=== PATIENT | female | born 1945 | race Caucasian/White ===

== ENCOUNTER 2022-11-12 14:50 | Inpatient (IN) | payer MEDICARE ==
[2022-11-12] MEDS ORDERED: methylPREDNISolone SOD SUCCI 125 MG/2 ML VIAL IV STA (15:25)
[2022-11-12] MEDS ORDERED: IPRATROPIUM-ALBUTEROL 3 ML NEB INHALATION STA (15:25)
--- NOTE | 2022-11-12 15:31 | ED ---
SOB HPI - General Chief Complaint: Shortness of Breath Stated Complaint: SOB Time Seen by Provider: 11/12/22 15:00 Source: patient, EMS, RN notes reviewed Mode of arrival: EMS Limitations: no limitations - History of Present Illness Initial Comments: 77-year-old female history of COPD who states she's had shortness of breath he got progressively worse over last 2 days. No overt fevers chills sweats she has had a cough no production. No overt chest pain. She was given a DuoNeb and route with some improvement she still short of breath and wheezy. No other current complaints or modifying factors reported MD Complaint: shortness of breath - Related Data Home Medications Medication Instructions Recorded Confirmed Albuterol Inhaler [Ventolin Hfa 2 puff INHALATION RT-QID PRN 11/12/22 11/12/22 Inhaler] Apixaban [Eliquis] 5 mg PO BID 11/12/22 11/12/22 Bumetanide [Bumex] 1 mg PO DAILY 11/12/22 11/12/22 Cholecalciferol [Vitamin D3 (25 75 mcg PO DAILY 11/12/22 11/12/22 Mcg = 1000 Iu)] Colchicine 0.6 mg PO TUTH 11/12/22 11/12/22 Ferrous Sulfate [Feosol] 325 mg PO DAILY 11/12/22 11/12/22 Fexofenadine HCl [Jamee Allergy] 180 mg PO HS 11/12/22 11/12/22 Fluticasone Propion/Salmeterol 1 puff INHALATION RT-BID 11/12/22 11/12/22 [Advair 500-50 Diskus] Ipratropium-Albuterol Nebulize 3 ml INHALATION RT-QID PRN 11/12/22 11/12/22 [Duoneb 0.5 mg-3 mg/3 ml Soln] Ipratropium/Albuter 20-100Mcg 1 puff INHALATION RT-QID PRN 11/12/22 11/12/22 [Combivent Respimat 20-100Mcg Inhaler] Losartan Potassium 100 mg PO DAILY 11/12/22 11/12/22 Magnesium Oxide [Mag-Ox] 400 mg PO DAILY 11/12/22 11/12/22 Metoprolol Succinate [Metoprolol 75 mg PO HS 11/12/22 11/12/22 Succinate ER] Montelukast [Singulair] 10 mg PO HS 11/12/22 11/12/22 Pantoprazole [Protonix] 40 mg PO BID 11/12/22 11/12/22 Potassium Chloride ER [K-Dur 20] 20 meq PO DAILY 11/12/22 11/12/22 Power C Supplement 2 tab PO DAILY 11/12/22 11/12/22 Tiotropium [place] [Spiriva] 18 mcg INHALATION RT-DAILY 11/12/22 11/12/22 Vitamin B Complex 1 cap PO DAILY 11/12/22 11/12/22 allopurinoL [Zyloprim] 200 mg PO DAILY 11/12/22 11/12/22 Allergies Allergy/AdvReac Type Severity Reaction Status Date / Time aspirin Allergy Anaphylaxis Verified 11/12/22 17:25 ibuprofen Allergy Anaphylaxis Verified 11/12/22 17:25 Review of Systems ROS Statement: Those systems with pertinent positive or pertinent negative responses have been documented in the HPI. ROS Other: All systems not noted in ROS Statement are negative. Past Medical History Additional Past Medical History / Comment(s): COPD, asthma, breast cancer, wears 3L NC at home. History of Any Multi-Drug Resistant Organisms: None Reported Past Surgical History: Section, Heart Catheterization, Hernia Repair, Pacemaker Past Psychological History: No Psychological Hx Reported Smoking Status: Former smoker Past Alcohol Use History: Occasional Past Drug Use History: None Reported General Exam - General Exam Comments Initial Comments: This is a well-developed well-nourished awake alert oriented 4 female Limitations: no limitations General appearance: alert, anxious, in distress Head exam: Present: atraumatic, normocephalic, normal inspection Eye exam: Present: normal appearance, PERRL, EOMI. Absent: scleral icterus, conjunctival injection, periorbital swelling ENT exam: Present: normal exam, mucous membranes moist Neck exam: Present: normal inspection, full ROM, other. Absent: tenderness, meningismus, lymphadenopathy Respiratory exam: Present: respiratory distress, wheezes, accessory muscle use, decreased breath sounds (No stridor JVD or bruits). Absent: rales, rhonchi, stridor Cardiovascular Exam: Present: normal rhythm, tachycardia, normal heart sounds. Absent: systolic murmur, diastolic murmur, rubs, gallop, clicks GI/Abdominal exam: Present: soft, normal bowel sounds. Absent: distended, tenderness, guarding, rebound, rigid Extremities exam: Present: normal inspection, full ROM, normal capillary refill. Absent: tenderness, pedal edema, joint swelling, calf tenderness Back exam: Present: normal inspection Neurological exam: Present: alert, oriented X3, CN II-XII intact Psychiatric exam: Present: normal affect, normal mood Skin exam: Present: warm, dry, intact, normal color. Absent: rash Course Vital Signs 11/12/22 11/12/22 11/12/22 14:52 14:59 16:31 Temperature 98.5 F Pulse Rate 85 83 Respiratory 22 22 18 Rate Blood Pressure 113/63 114/76 O2 Sat by Pulse 92 L 94 L Oximetry 11/12/22 11/12/22 11/12/22 16:55 17:25 17:33 Temperature Pulse Rate 84 90 90 Respiratory 20 Rate Blood Pressure O2 Sat by Pulse 94 L Oximetry 11/12/22 17:53 Temperature Pulse Rate 87 Respiratory 18 Rate Blood Pressure 116/64 O2 Sat by Pulse 93 L Oximetry Medical Decision Making - Medical Decision Making I did discuss [employer] the patient family patient is feeling improved after initial treatment she does demonstrate evidence of CHF also has elevated troponin. She will be admitted with inpatient evaluation and treatment I did discuss the case with Dimple lópez for Dr. Gonzalez pt. sent in by a medical professional or institution (FELISA Stahl, DIETARY SERVICES MANAGER, urgent care, hospital, or assisted ...) When possible be specific @ -[No] Did you speak to anyone other than the patient for history (EMS, parent, family, police, friend...)? What history was obtained from this source @ -[EMS personnel] Did you review nursing and triage notes (agree or disagree)? Why? @ -[I reviewed and agree with nursing and triage notes] Were old charts reviewed (outside hosp., previous admission, EMS record, old EKG, old radiological studies, urgent care reports/EKG's, assisted records)? Report findings @ -[No old charts were available to reviewed] Differential Diagnosis (chest pain, altered mental status, abdominal pain women, abdominal pain men, vaginal bleeding, weakness, fever, dyspnea, syncope, headache, dizziness, GI bleed, back pain, seizure, CVA, palpatations, mental health, musculoskeletal)? @ -[COPD exacerbation, shortness of breath secondary to CHF] EKG interpreted by me (3pts min.). @ -[As above] X-rays interpreted by me (1pt min.). @ -[As above] CT interpreted by me (1pt min.). @ -[None done] U/S interpreted by me (1pt. min.). @ -[None done] What testing was considered but not performed or refused? (CT, X-rays, U/S, labs)? Why? @ -[None] What meds were considered but not given or refused? Why? @ -[None] Did you discuss the management of the patient with other professionals (professionals i.e. , PA, DIETARY SERVICES MANAGER, lab, RT, psych nurse, social sciences professor, chalk extruding machine operator, teacher, dog control officer, transplant case manager)? Give summary @ -[Dimple the mid-level provider. Dr. Lindsay] Was smoking cessation discussed for >3mins.? @ -[No] Was critical care preformed (if so, how long)? @ -[31 minutes] Were there social determinants of health that impacted care today? How? ( Homelessness, low income, unemployed, alcoholism, drug addiction, transportation, low edu. Level, literacy, decrease access to med. care, fpc, rehab)? @ -[No] Was there de-escalation of care discussed even if they declined (Discuss DNR or withdrawal of care, Hospice)? DNR status @ -[No] What co-morbidities impacted this encounter? (DM, HTN, Smoking, COPD, CAD, Cancer, CVA, ARF, Chemo, Hep., AIDS, mental health diagnosis, sleep apnea, morbid obesity)? @ -[COPD, history of breast cancer, oxygen dependent] Was patient admitted / discharged? Hospital course, mention meds given and r oute, prescriptions, significant lab abnormalities, going to OR and other pertinent info. @ -[hospital course] patient was admitted for inpatient evaluation and treatment of shortness of breath CHF cardiology will be consulted. No old charting was available Undiagnosed new problem with uncertain prognosis? @ -[Congestive heart failure] Drug Therapy requiring intensive monitoring for toxicity (Heparin, Nitro, Insulin, Cardizem)? @ -[No] Were any procedures done? @ -[No] Diagnosis/symptom? @ -[Congestive heart failure, COPD exacerbation, exertional dyspnea, history of pacemaker] Acute, or Chronic, or Acute on Chronic? @ -[Acute] Uncomplicated (without systemic symptoms) or Complicated (systemic symptoms)? @ -[Complicated] Side effects of treatment? @ -[No] Exacerbation, Progression, or Severe Exacerbation? @ -[Exacerbation] Poses a threat to life or bodily function? How? (Chest pain, [place], [place], pneumonia, PE, COPD, DKA, ARF, appy, cholecystitis, CVA, Diverticulitis, Homicidal, Suicidal, threat to staff... and all critical care pts) @ -[CHF, COPD] - Lab Data Result diagrams: 11/12/22 15:21 11/12/22 15:21 Lab Results 11/12/22 11/12/22 11/12/22 Range/Units 15:21 15:21 15:21 WBC 12.9 H (3.8-10.6) k/uL RBC 3.63 L (3.80-5.40) m/uL Hgb 10.8 L (11.4-16.0) gm/dL Hct 34.0 (34.0-46.0) % MCV 93.7 (80.0-100.0) fL MCH 29.8 (25.0-35.0) pg MCHC 31.8 (31.0-37.0) g/dL RDW 14.5 (11.5-15.5) % Plt Count 205 (150-450) k/uL MPV 8.3 Neutrophils % 75 % Lymphocytes % 14 % Monocytes % 6 % Eosinophils % 4 % Basophils % 0 % Neutrophils # 9.7 H (1.3-7.7) k/uL Lymphocytes # 1.7 (1.0-4.8) k/uL Monocytes # 0.8 (0-1.0) k/uL Eosinophils # 0.5 (0-0.7) k/uL Basophils # 0.0 (0-0.2) k/uL PT 11.5 (9.0-12.0) sec INR 1.1 (<1.2) APTT 31.1 H (22.0-30.0) sec D-Dimer 0.39 (<0.60) mg/L FEU Sodium 140 (137-145) mmol/L Potassium 4.5 (3.5-5.1) mmol/L Chloride 96 L (98-107) mmol/L Carbon Dioxide 39 H (22-30) mmol/L Anion Gap 5 mmol/L BUN 48 H (7-17) mg/dL Creatinine 1.55 H (0.52-1.04) mg/dL Est GFR (CKD-EPI)AfAm 37 (>60 ml/min/1.73 sqM) Est GFR (CKD-EPI)NonAf 32 (>60 ml/min/1.73 sqM) Glucose 123 H (74-99) mg/dL Plasma Lactic Acid Cliff (0.7-2.0) mmol/L Calcium 9.1 (8.4-10.2) mg/dL Total Bilirubin 1.4 H (0.2-1.3) mg/dL AST 20 (14-36) U/L ALT 15 (4-34) U/L Alkaline Phosphatase 102 (38-126) U/L Troponin I (0.000-0.034) ng/mL NT-Pro-B Natriuret Pep pg/mL Total Protein 7.0 (6.3-8.2) g/dL Albumin 3.6 (3.5-5.0) g/dL Influenza Type A (PCR) (Not Detectd) Influenza Type B (PCR) (Not Detectd) RSV (PCR) (Not Detectd) SARS-CoV-2 (PCR) (Not Detectd) 11/12/22 11/12/22 11/12/22 Range/Units 15:21 15:21 15:21 WBC (3.8-10.6) k/uL RBC (3.80-5.40) m/uL Hgb (11.4-16.0) gm/dL Hct (34.0-46.0) % MCV (80.0-100.0) fL MCH (25.0-35.0) pg MCHC (31.0-37.0) g/dL RDW (11.5-15.5) % Plt Count (150-450) k/uL MPV Neutrophils % % Lymphocytes % % Monocytes % % Eosinophils % % Basophils % % Neutrophils # (1.3-7.7) k/uL Lymphocytes # (1.0-4.8) k/uL Monocytes # (0-1.0) k/uL Eosinophils # (0-0.7) k/uL Basophils # (0-0.2) k/uL PT (9.0-12.0) sec INR (<1.2) APTT (22.0-30.0) sec D-Dimer (<0.60) mg/L FEU Sodium (137-145) mmol/L Potassium (3.5-5.1) mmol/L Chloride (98-107) mmol/L Carbon Dioxide (22-30) mmol/L Anion Gap mmol/L BUN (7-17) mg/dL Creatinine (0.52-1.04) mg/dL Est GFR (CKD-EPI)AfAm (>60 ml/min/1.73 sqM) Est GFR (CKD-EPI)NonAf (>60 ml/min/1.73 sqM) Glucose (74-99) mg/dL Plasma Lactic Acid Cliff 1.2 (0.7-2.0) mmol/L Calcium (8.4-10.2) mg/dL Total Bilirubin (0.2-1.3) mg/dL AST (14-36) U/L ALT (4-34) U/L Alkaline Phosphatase (38-126) U/L Troponin I 0.059 H* (0.000-0.034) ng/mL NT-Pro-B Natriuret Pep 6400 pg/mL Total Protein (6.3-8.2) g/dL Albumin (3.5-5.0) g/dL Influenza Type A (PCR) (Not Detectd) Influenza Type B (PCR) (Not Detectd) RSV (PCR) (Not Detectd) SARS-CoV-2 (PCR) (Not Detectd) 11/12/22 Range/Units 16:16 WBC (3.8-10.6) k/uL RBC (3.80-5.40) m/uL Hgb (11.4-16.0) gm/dL Hct (34.0-46.0) % MCV (80.0-100.0) fL MCH (25.0-35.0) pg MCHC (31.0-37.0) g/dL RDW (11.5-15.5) % Plt Count (150-450) k/uL MPV Neutrophils % % Lymphocytes % % Monocytes % % Eosinophils % % Basophils % % Neutrophils # (1.3-7.7) k/uL Lymphocytes # (1.0-4.8) k/uL Monocytes # (0-1.0) k/uL Eosinophils # (0-0.7) k/uL Basophils # (0-0.2) k/uL PT (9.0-12.0) sec INR (<1.2) APTT (22.0-30.0) sec D-Dimer (<0.60) mg/L FEU Sodium (137-145) mmol/L Potassium (3.5-5.1) mmol/L Chloride (98-107) mmol/L Carbon Dioxide (22-30) mmol/L Anion Gap mmol/L BUN (7-17) mg/dL Creatinine (0.52-1.04) mg/dL Est GFR (CKD-EPI)AfAm (>60 ml/min/1.73 sqM) Est GFR (CKD-EPI)NonAf (>60 ml/min/1.73 sqM) Glucose (74-99) mg/dL Plasma Lactic Acid Cliff (0.7-2.0) mmol/L Calcium (8.4-10.2) mg/dL Total Bilirubin (0.2-1.3) mg/dL AST (14-36) U/L ALT (4-34) U/L Alkaline Phosphatase (38-126) U/L Troponin I (0.000-0.034) ng/mL NT-Pro-B Natriuret Pep pg/mL Total Protein (6.3-8.2) g/dL Albumin (3.5-5.0) g/dL Influenza Type A (PCR) Not Detected (Not Detectd) Influenza Type B (PCR) Not Detected (Not Detectd) RSV (PCR) Not Detected (Not Detectd) SARS-CoV-2 (PCR) Not Detected (Not Detectd) - EKG Data -: EKG Interpreted by Me EKG Comments: EKG interpreted by me electronic pacer rhythm rate 81 QRS 163 QT since QTC 43/441 was a right bundle-branch block pattern as well as left posterior fascicular block patterns seen evidence of intermittent pacing nonspecific configurations - Radiology Data Interpreted by me: I did interpret the imaging evidence of congestive heart failure. Critical Care Time Critical Care Time: Yes Total Critical Care Time: 31 Disposition Clinical Impression: Congestive heart failure, Acute exacerbation of chronic obstructive pulmonary disease, Elevated troponin, Renal insufficiency syndrome, Elevated brain natriuretic peptide (BNP) level Disposition: ADMITTED IP TO THIS [facility] Condition: Fair Referrals: Ingrid Ocampo DO [Primary Care Provider] - 1-2 days Decision Date: 11/12/22 Decision Time: 17:50
[2022-11-12 15:37] LABS: Basophils % (A) 0 %; Eosinophils # (A) 0.5 k/uL (0-0.7); Eosinophils % (A) 4 %; HGB 10.8 gm/dL (11.4-16.0); Lymphocytes # (A) 1.7 k/uL (1.0-4.8); Lymphocytes % (A) 14 %; MCH 29.8 pg (25.0-35.0); MCHC 31.8 g/dL (31.0-37.0); MCV 93.7 fL (80.0-100.0); Mean Platelet Volume 8.3; Monocytes # (A) 0.8 k/uL (0-1.0); Monocytes % (A) 6 %; Neutrophils # (A) 9.7 k/uL (1.3-7.7); Neutrophils % (A) 75 %; Platelet Count 205 k/uL (150-450); RBC 3.63 m/uL (3.80-5.40); RDW 14.5 % (11.5-15.5); WBC 12.9 k/uL (3.8-10.6)
[2022-11-12 15:51] LABS: INR 1.1 (<1.2); Partial Thromboplastin Time 31.1 sec (22.0-30.0); Prothrombin Time 11.5 sec (9.0-12.0)
[2022-11-12 15:53] LABS: Albumin 3.6 g/dL (3.5-5.0); Calcium 9.1 mg/dL (8.4-10.2); Potassium 4.5 mmol/L (3.5-5.1); Total Bilirubin 1.4 mg/dL (0.2-1.3)
--- NOTE | 2022-11-12 16:07 | XR ---
EXAMINATION TYPE: XR chest 2V DATE OF EXAM: 11/12/2022 COMPARISON: NONE HISTORY: Shortness of breath TECHNIQUE: Frontal and lateral views of the chest are obtained. FINDINGS: Scattered senescent parenchymal changes noted. Hyperinflation compatible with COPD. No evidence for infiltrate. No evidence for atelectasis. Cardiomegaly. Dual-lead pacer. Pulmonary venous congestion with fluid within the right minor fissure and scattered infiltrates. Mediastinal structures are stable and grossly unremarkable. No evidence for hilar prominence. Degenerative changes dorsal spine. IMPRESSION: 1. Correlate for early changes of congestive failure. Infiltrates of other etiology not excluded.
[2022-11-12] MEDS: FUROSEMIDE 10 MG/ML 4 ML VIAL IV SCH (18:56)
[2022-11-12] MEDS: IPRATROPIUM-ALBUTEROL 3 ML NEB INHALATION PRN (21:03)
[2022-11-12] MEDS: SYMBICORT 160-4.5 MCG INHALER INHALATION SCH (21:03)
[2022-11-12] MEDS: METOPROLOL SUCCINATE (ER) 25 MG TAB.ER.24H PO SCH (21:24)
[2022-11-12] MEDS: APIXABAN 5 MG TAB PO SCH (21:24)
[2022-11-12] MEDS: LORATADINE 10 MG TAB PO SCH (21:24)
[2022-11-12] MEDS: MONTELUKAST 10 MG TAB PO SCH (21:24)
[2022-11-12] MEDS: PANTOPRAZOLE 40 MG TABLET PO SCH (21:24)
[2022-11-13] MEDS: IPRATROPIUM-ALBUTEROL 3 ML NEB INHALATION PRN ×5 (00:57→15:49)
[2022-11-13] MEDS: methylPREDNISolone SOD SUCCI 40 MG/ML 1 ML VIAL IV SCH ×4 (01:48→23:48)
[2022-11-13] MEDS ORDERED: DEXTROSE 50% SYRINGE 50 ML IVP PRN ×2 (02:18)
[2022-11-13] MEDS: FUROSEMIDE 10 MG/ML 4 ML VIAL IV SCH ×2 (06:03→17:21)
[2022-11-13 06:13] LABS: Glucose,Whole Blood 153 mg/dL (70-110)
[2022-11-13] MEDS: INSULIN ASPART (NovoLOG) 100 UNIT/ML VIAL SQ SCH ×4 (07:37→23:50)
[2022-11-13] MEDS: PANTOPRAZOLE 40 MG TABLET PO SCH ×2 (08:33→20:15)
[2022-11-13] MEDS: APIXABAN 5 MG TAB PO SCH ×2 (08:33→20:15)
[2022-11-13] MEDS: allopurinoL 100 MG TAB PO SCH (08:33)
[2022-11-13] MEDS: ASCORBIC ACID 500 MG TAB PO SCH (08:34)
[2022-11-13] MEDS: MAGNESIUM OXIDE 400 MG TAB PO SCH (08:34)
[2022-11-13] MEDS: CHOLECALCIFEROL 25 MCG (1000 IU) TABLET PO SCH (08:34)
[2022-11-13] MEDS: POTASSIUM CHLORIDE ER 20 MEQ TAB.ER PO SCH (08:34)
[2022-11-13] MEDS: FERROUS SULFATE 325 MG TAB PO SCH (08:34)
[2022-11-13] MEDS: IPRATROPIUM 0.5 MG/2.5 ML NEBU INHALATION SCH ×4 (08:46→21:05)
[2022-11-13] MEDS: SYMBICORT 160-4.5 MCG INHALER INHALATION SCH ×2 (08:46→21:05)
[2022-11-13] MEDS ORDERED: BUMETANIDE 1 MG TAB PO SCH (09:00)
[2022-11-13] MEDS ORDERED: LOSARTAN 50 MG TAB PO SCH (09:00)
[2022-11-13] MEDS ORDERED: NON FORMULARY DRUG (Vitamin B Complex [Vitamin B Complex] 1 EACH Capsule) PO SCH (09:00)
--- NOTE | 2022-11-13 09:26 | P.CRDCN ---
History of Present Illness Consult date: 11/13/22 History of present illness: History of Present Illness: The patient is a 77-year-old female who is followed by Dr. Palacio regarding her cardiac status who presents with symptoms of progressive dyspnea, cough for the last few days, worse yesterday. In the emergency room she was noted to be in atrial fibrillation and had evidence of exacerbation of COPD and CHF. She has a known history of permanent atrial fibrillation, anticoagulated, post permanent pacemaker implantation. She has underwent a cardiac catheterization according to her a year ago that showed no evidence of obstructive CAD. She has no prior history of myocardial infarction. She recalls being told that her ejection fraction is 40%. Her symptoms were getting worse over the last few days but not associated with chest pain or fever. She had wheezing and cough. She had mild peripheral edema. She has been anticoagulated. She has a history of COPD but has not smoked in over 20 years. In the emergency room her troponin were mildly elevated and her NT proBNP was elevated as well. Her coronary risk factors are positive for hypertension, her lipid profile is not available. Medications: Bumex 1 mg daily, potassium, Singulair, colchicine, Spiriva, Ventolin, Combivent, Advair, metoprolol succinate 75 mg daily,Eliquis 5 mg twice a day Review of Systems: Respiratory: She has a history of COPD with symptoms of progressive dyspnea and cough GI: No nausea or vomiting . No history of peptic ulcer disease. Rare GI bleed. : No hematuria or dysuria. Nervous System: No stroke or seizure. Physical Examination: 77-year-old female alert mildly dyspneic ,Blood pressure 91/50, Heart rate 80 Head: Normocephalic. Eyes: Sclerae nonicteric. Neck: Good carotid upstroke, no bruit, no jugular venous distention. Lungs: Diffuse wheezes bilaterally with decreased air exchange Heart: Irregular rate and rhythm, S1-S2, no S3, no rub. Systolic ejection murmur. Abdomen: Soft nontender, positive bowel sounds no organomegaly. Extremities: No edema, intact distal pulses. Labs: WBC 12.9, hemoglobin 10.8, BUN 48, creatinine 1.55. Potassium 4.5. NT proBNP 6400. Troponin 0.059, 0.051, 0.047. EKG: Atrial fibrillation with evidence of permanent pacemaker activity Impression: 1. Progressive dyspnea with a combination of exacerbation of COPD and CHF. Her ejection fraction in the past according to her was 40% 2. Chronic persistent atrial fibrillation, anticoagulated 3. Status post permanent pacemaker implantation 4. History of hypertension 5. Troponin elevation most likely representing type II myocardial infarction related to the COPD and CHF 6. Abnormal renal function of unknown duration 7. No evidence of high-grade CAD per patient by cardiac catheterization about a year ago Plan: 1. Obtained prior cardiac workup including cardiac catheterization done at [facility] 2. Continue anticoagulation and beta angelito 3. IV diuretics 4. Obtain an echocardiogram with Doppler 5. Pulmonary consultation 6. Follow renal functions 7. Depending on her renal function, and her ejection fraction she may be a candidate for Entresto and Farxiga 8. Thank you for this consult we will follow with you. Past Medical History Past Medical History: Atrial Fibrillation, Asthma, Cancer, Heart Failure, COPD, GERD/Reflux, Skin Disorder Additional Past Medical History / Comment(s): COPD, asthma, breast cancer-right, wears 3L NC at home, Arthritis, dry patch on right leg History of Any Multi-Drug Resistant Organisms: None Reported Past Surgical History: Section, Heart Catheterization, Hernia Repair, Pacemaker Additional Past Surgical History / Comment(s): left hand surgery for broken index and middle finger Past Anesthesia/Blood Transfusion Reactions: No Reported Reaction Type of Cardiac Device: Permanent Pacemaker Device Placement Date:: 07/2021 Past Psychological History: Depression Smoking Status: Former smoker Past Alcohol Use History: Occasional Past Drug Use History: None Reported - Past Family History Mother Family Medical History: Diabetes Mellitus Medications and Allergies Home Medications Medication Instructions Recorded Confirmed Type Albuterol Inhaler [Ventolin Hfa 2 puff INHALATION RT-QID PRN 11/12/22 11/12/22 History Inhaler] Apixaban [Eliquis] 5 mg PO BID 11/12/22 11/12/22 History Bumetanide [Bumex] 1 mg PO DAILY 11/12/22 11/12/22 History Cholecalciferol [Vitamin D3 (25 75 mcg PO DAILY 11/12/22 11/12/22 History Mcg = 1000 Iu)] Colchicine 0.6 mg PO TUTH 11/12/22 11/12/22 History Ferrous Sulfate [Feosol] 325 mg PO DAILY 11/12/22 11/12/22 History Fexofenadine HCl [Jamee Allergy] 180 mg PO HS 11/12/22 11/12/22 History Fluticasone Propion/Salmeterol 1 puff INHALATION RT-BID 11/12/22 11/12/22 Hi story [Advair 500-50 Diskus] Ipratropium-Albuterol Nebulize 3 ml INHALATION RT-QID PRN 11/12/22 11/12/22 History [Duoneb 0.5 mg-3 mg/3 ml Soln] Ipratropium/Albuter 20-100Mcg 1 puff INHALATION RT-QID PRN 11/12/22 11/12/22 History [Combivent Respimat 20-100Mcg Inhaler] Losartan Potassium 100 mg PO DAILY 11/12/22 11/12/22 History Magnesium Oxide [Mag-Ox] 400 mg PO DAILY 11/12/22 11/12/22 History Metoprolol Succinate [Metoprolol 75 mg PO HS 11/12/22 11/12/22 History Succinate ER] Montelukast [Singulair] 10 mg PO HS 11/12/22 11/12/22 History Pantoprazole [Protonix] 40 mg PO BID 11/12/22 11/12/22 History Potassium Chloride ER [K-Dur 20] 20 meq PO DAILY 11/12/22 11/12/22 History Power C Supplement 2 tab PO DAILY 11/12/22 11/12/22 History Tiotropium [place] [Spiriva] 18 mcg INHALATION RT-DAILY 11/12/22 11/12/22 History Vitamin B Complex 1 cap PO DAILY 11/12/22 11/12/22 History allopurinoL [Zyloprim] 200 mg PO DAILY 11/12/22 11/12/22 History Allergies Allergy/AdvReac Type Severity Reaction Status Date / Time aspirin Allergy Anaphylaxis Verified 11/12/22 17:25 ibuprofen Allergy Anaphylaxis Verified 11/12/22 17:25 Physical Exam Vitals: Vital Signs Temp Pulse Pulse Resp BP BP Pulse Ox 11/13/22 09:01 76 11/13/22 08:47 78 92 L 11/13/22 08:28 98.1 F 78 20 91/49 96 11/13/22 04:31 77 11/13/22 04:15 71 11/13/22 04:00 97.6 F 70 20 90/50 92 L 11/13/22 01:52 24 11/13/22 01:11 72 11/13/22 00:58 71 11/13/22 00:00 98.4 F 74 22 92/54 93 L 11/12/22 21:22 84 11/12/22 21:04 85 11/12/22 20:00 98.9 F 87 22 113/66 93 L 11/12/22 18:55 97.5 F L 77 18 103/64 95 11/12/22 17:53 87 18 116/64 93 L 11/12/22 17:33 90 11/12/22 17:25 90 11/12/22 16:55 84 20 94 L 11/12/22 16:31 83 18 114/76 94 L 11/12/22 14:59 98.5 F 22 11/12/22 14:52 85 22 113/63 92 L Intake and Output 11/12/22 11/13/22 11/13/22 22:59 06:59 14:59 Intake Total 240 Output Total 300 100 200 Balance -300 -100 40 Intake: Oral 240 Output: Urine 300 100 200 Other: Voiding Method Bedside Commode Bedside Commode Bedside Commode # Bowel Movements 1 Weight 78.925 kg 80.4 kg Results 11/12/22 15:21 11/12/22 15:21 Cardiac Enzymes 11/12/22 11/12/22 11/12/22 Range/Units 15:21 15:21 18:37 AST 20 (14-36) U/L Troponin I 0.059 H* 0.051 H* (0.000-0.034) ng/mL 11/12/22 Range/Units 22:34 AST (14-36) U/L Troponin I 0.047 H* (0.000-0.034) ng/mL Coagulation 11/12/22 Range/Units 15:21 PT 11.5 (9.0-12.0) sec APTT 31.1 H (22.0-30.0) sec CBC 11/12/22 Range/Units 15:21 WBC 12.9 H (3.8-10.6) k/uL RBC 3.63 L (3.80-5.40) m/uL Hgb 10.8 L (11.4-16.0) gm/dL Hct 34.0 (34.0-46.0) % Plt Count 205 (150-450) k/uL Comprehensive Metabolic Panel 11/12/22 Range/Units 15:21 Sodium 140 (137-145) mmol/L Potassium 4.5 (3.5-5.1) mmol/L Chloride 96 L (98-107) mmol/L Carbon Dioxide 39 H (22-30) mmol/L BUN 48 H (7-17) mg/dL Creatinine 1.55 H (0.52-1.04) mg/dL Glucose 123 H (74-99) mg/dL Calcium 9.1 (8.4-10.2) mg/dL AST 20 (14-36) U/L ALT 15 (4-34) U/L Alkaline Phosphatase 102 (38-126) U/L Total Protein 7.0 (6.3-8.2) g/dL Albumin 3.6 (3.5-5.0) g/dL Current Medications Generic Name Dose Route Start Last Admin Trade Name Freq PRN Reason Stop Dose Admin Albuterol/Ipratropium 3 ml 11/12/22 18:21 11/13/22 08:46 Ipratropium-Albuterol 3 Ml Neb INHALATION 3 ml RT-QID PRN Administration Shortness Of Breath Allopurinol 200 mg 11/13/22 09:00 11/13/22 08:33 Allopurinol 100 Mg Tab PO 200 mg DAILY OANH Administration Apixaban 5 mg 11/12/22 21:00 11/13/22 08:33 Apixaban 5 Mg Tab PO 5 mg BID OANH Administration Protocol Ascorbic Acid 500 mg 11/13/22 09:00 11/13/22 08:34 Ascorbic Acid 500 Mg Tab PO 500 mg DAILY OANH Administration Budesonide/Formoterol Fumarate 2 puff 11/12/22 20:00 11/13/22 08:46 Symbicort 160-4.5 Mcg Inhaler INHALATION 2 puff RT-BID OANH Administration Cholecalciferol 75 mcg 11/13/22 09:00 11/13/22 08:34 Cholecalciferol 25 Mcg (1000 Iu) Tablet PO 75 mcg DAILY OANH Administration Colchicine 0.6 mg 11/15/22 09:00 Colchicine 0.6 Mg Each PO [facility] Dextrose/Water 25 ml 11/13/22 02:18 Dextrose 50% Syringe 50 Ml IVP PER PROTOCOL PRN Hypoglycemia Protocol Dextrose/Water 50 ml 11/13/22 02:18 Dextrose 50% Syringe 50 Ml IVP PER PROTOCOL PRN Hypoglycemia Protocol Ferrous Sulfate 325 mg 11/13/22 09:00 11/13/22 08:34 Ferrous Sulfate 325 Mg Tab PO 325 mg DAILY OANH Administration Furosemide 40 mg 11/12/22 18:00 11/13/22 06:03 Furosemide 10 Mg/Ml 4 Ml Vial IV 40 mg Q12H OANH Administration Insulin Aspart 0 unit 11/13/22 07:30 11/13/22 07:37 Insulin Aspart (Novolog) 100 Unit/Ml Vial SQ 2 unit ACHS OANH Administration Protocol Ipratropium [place] 0.5 mg 11/13/22 08:00 11/13/22 08:46 Ipratropium 0.5 Mg/2.5 Ml Nebu INHALATION Not Given RT-QID OANH Loratadine 10 mg 11/12/22 21:00 11/12/22 21:24 Loratadine 10 Mg Tab PO 10 mg HS OANH Administration Magnesium Oxide 400 mg 11/13/22 09:00 11/13/22 08:34 Magnesium Oxide 400 Mg Tab PO 400 mg DAILY OANH Administration Methylprednisolone Sodium Succinate 40 mg 11/13/22 01:45 11/13/22 08:32 Methylprednisolone Sod Succi 40 Mg/Ml 1 Ml Vial IV 40 mg Q8HR OANH Administration Metoprolol Succinate 75 mg 11/12/22 21:00 11/12/22 21:24 Metoprolol Succinate (Er) 25 Mg Tab.Er.24h PO 75 mg HS OANH Administration Montelukast Sodium 10 mg 11/12/22 21:00 11/12/22 21:24 Montelukast 10 Mg Tab PO 10 mg HS OANH Administration Pantoprazole Sodium 40 mg 11/12/22 21:00 11/13/22 08:33 Pantoprazole 40 Mg Tablet PO 40 mg BID OANH Administration Potassium Chloride 20 meq 11/13/22 09:00 11/13/22 08:34 Potassium Chloride Er 20 Meq Tab.Er PO 20 meq DAILY OANH Administration Intake and Output 11/12/22 11/13/22 11/13/22 22:59 06:59 14:59 Intake Total 240 Output Total 300 100 200 Balance -300 -100 40 Intake: Oral 240 Output: Urine 300 100 200 Other: Voiding Method Bedside Commode Bedside Commode Bedside Commode # Bowel Movements 1 Weight 78.925 kg 80.4 kg 11/12/22 15:21 11/12/22 15:21
[2022-11-13 09:54] LABS: Calcium 8.9 mg/dL (8.4-10.2); Potassium 4.6 mmol/L (3.5-5.1)
--- NOTE | 2022-11-13 09:59 | P.HPIM ---
History of Present Illness This is a pleasant 77 years old female with past medical history of Atrial Fibrillation, Asthma, Heart Failure, COPD, GERD/Reflux Presents because of dyspnea and shortness of breath of 1 week duration associated with cough more than one month sometimes with yellow phlegm Patient denies chest pain. No urinary or GI complaints, no dysuria urgency vomiting or diarrhea. No abdominal pain, no headache dizziness weakness or numbness No smoking or illicit tracts, she uses alcohol occasionally She says that she's being nitrite lately and she is being less amount. She's been treated oxygen nasal cannula at home. Vitals reviewed, patient is afebrile. Blood pressure low-normal 90/50. Blood pressure was better on admission 113/63. Patient states 22 and he is saturating 92% on 4 L oxygen via nasal cannula Labs showing mild leukocytosis of 12.9, hemoglobin 10.8. D-dimer is negative at 0.39. Creatinine elevated 1.5, unknown baseline. Electrolytes normal. Liver enzymes elevated. troponin is elevated at 0.059, 0.051, 0.047. probnp is elevated 6400. 3 virus is not detected influenza, rsv and coronavirus ekg showing irregular. Prolonged QRS, some paced rhythm rate around 81, no significant ST-T changes Review of Systems Review of systems CONSTITUTIONAL: No fever, no malaise, no fatigue. HEENT: No recent visual problems or hearing problems. Denied any sore throat. CARDIOVASCULAR: No orthopnea, PND, no palpitations, no syncope. PULMONARY: No chest wall tenderness, no hemoptysis. GASTROINTESTINAL: No diarrhea, no nausea, no vomiting, no abdominal pain. Normoactive bowel sounds. NEUROLOGICAL: No headaches, no weakness, no numbness. HEMATOLOGICAL: Denies any bleeding or petechiae. GENITOURINARY: Denies any burning micturition, frequency, or urgency. MUSCULOSKELETAL/RHEUMATOLOGICAL: Denies any joint pain, swelling, or any muscle pain. ENDOCRINE: Denies any polyuria or polydipsia. Past Medical History Past Medical History: Atrial Fibrillation, Asthma, Cancer, Heart Failure, COPD, GERD/Reflux, Skin Disorder Additional Past Medical History / Comment(s): COPD, asthma, breast cancer-right, wears 3L NC at home, Arthritis, dry patch on right leg History of Any Multi-Drug Resistant Organisms: None Reported Past Surgical History: Section, Heart Catheterization, Hernia Repair, Pacemaker Additional Past Surgical History / Comment(s): left hand surgery for broken index and middle finger Past Anesthesia/Blood Transfusion Reactions: No Reported Reaction Type of Cardiac Device: Permanent Pacemaker Device Placement Date:: 07/2021 Past Psychological History: Depression Smoking Status: Former smoker Past Alcohol Use History: Occasional Past Drug Use History: None Reported - Past Family History Mother Family Medical History: Diabetes Mellitus Medications and Allergies Home Medications Medication Instructions Recorded Confirmed Type Albuterol Inhaler [Ventolin Hfa 2 puff INHALATION RT-QID PRN 11/12/22 11/12/22 History Inhaler] Apixaban [Eliquis] 5 mg PO BID 11/12/22 11/12/22 History Bumetanide [Bumex] 1 mg PO DAILY 11/12/22 11/12/22 History Cholecalciferol [Vitamin D3 (25 75 mcg PO DAILY 11/12/22 11/12/22 History Mcg = 1000 Iu)] Colchicine 0.6 mg PO TUTH 11/12/22 11/12/22 History Ferrous Sulfate [Feosol] 325 mg PO DAILY 11/12/22 11/12/22 History Fexofenadine HCl [Jamee Allergy] 180 mg PO HS 11/12/22 11/12/22 History Fluticasone Propion/Salmeterol 1 puff INHALATION RT-BID 11/12/22 11/12/22 History [Advair 500-50 Diskus] Ipratropium-Albuterol Nebulize 3 ml INHALATION RT-QID PRN 11/12/22 11/12/22 History [Duoneb 0.5 mg-3 mg/3 ml Soln] Ipratropium/Albuter 20-100Mcg 1 puff INHALATION RT-QID PRN 11/12/22 11/12/22 History [Combivent Respimat 20-100Mcg Inhaler] Losartan Potassium 100 mg PO DAILY 11/12/22 11/12/22 History Magnesium Oxide [Mag-Ox] 400 mg PO DAILY 11/12/22 11/12/22 History Metoprolol Succinate [Metoprolol 75 mg PO HS 11/12/22 11/12/22 History Succinate ER] Montelukast [Singulair] 10 mg PO HS 11/12/22 11/12/22 History Pantoprazole [Protonix] 40 mg PO BID 11/12/22 11/12/22 History Potassium Chloride ER [K-Dur 20] 20 meq PO DAILY 11/12/22 11/12/22 History Power C Supplement 2 tab PO DAILY 11/12/22 11/12/22 History Tiotropium [place] [Spiriva] 18 mcg INHALATION RT-DAILY 11/12/22 11/12/22 History Vitamin B Complex 1 cap PO DAILY 11/12/22 11/12/22 History allopurinoL [Zyloprim] 200 mg PO DAILY 11/12/22 11/12/22 History Allergies Allergy/AdvReac Type Severity Reaction Status Date / Time aspirin Allergy Anaphylaxis Verified 11/12/22 17:25 ibuprofen Allergy Anaphylaxis Verified 11/12/22 17:25 Physical Exam Vitals: Vital Signs Temp Pulse Pulse Resp BP BP Pulse Ox 11/13/22 04:31 77 11/13/22 04:15 71 11/13/22 04:00 97.6 F 70 20 90/50 92 L 11/13/22 01:52 24 11/13/22 01:11 72 11/13/22 00:58 71 11/13/22 00:00 98.4 F 74 22 92/54 93 L 11/12/22 21:22 84 11/12/22 21:04 85 11/12/22 20:00 98.9 F 87 22 113/66 93 L 11/12/22 18:55 97.5 F L 77 18 103/64 95 11/12/22 17:53 87 18 116/64 93 L 11/12/22 17:33 90 11/12/22 17:25 90 11/12/22 16:55 84 20 94 L 11/12/22 16:31 83 18 114/76 94 L 11/12/22 14:59 98.5 F 22 11/12/22 14:52 85 22 113/63 92 L Intake and Output 11/12/22 11/13/22 11/13/22 22:59 06:59 14:59 Output Total 300 100 200 Balance -300 -100 -200 Output: Urine 300 100 200 Other: Voiding Method Bedside Commode Bedside Commode # Bowel Movements 1 Weight 78.925 kg 80.4 kg GENERAL: The patient is alert and oriented x3, not in any acute distress. Well developed, well nourished. HEENT: Pupils are round and equally reacting to light. EOMI. No scleral icterus. No conjunctival pallor. Normocephalic, atraumatic. No pharyngeal erythema. No thyromegaly. CARDIOVASCULAR: S1 and S2 present. No murmurs, rubs, or gallops. -PULMONARY: Chest is clear to auscultation, bilateral expiratory wheezing ABDOMEN: Soft, nontender, nondistended, normoactive bowel sounds. No palpable organomegaly. MUSCULOSKELETAL: No joint swelling or deformity. EXTREMITIES: No cyanosis, clubbing, or pedal edema. NEUROLOGICAL: Gross neurological examination did not reveal any focal deficits. SKIN: No rashes. no petechiae. Results CBC & Chem 7: 11/12/22 15:21 11/13/22 09:13 Labs: Abnormal Lab Results - Last 24 Hours (Table) 11/12/22 11/12/22 11/12/22 Range/Units 15:21 15:21 15:21 WBC 12.9 H (3.8-10.6) k/uL RBC 3.63 L (3.80-5.40) m/uL Hgb 10.8 L (11.4-16.0) gm/dL Neutrophils # 9.7 H (1.3-7.7) k/uL APTT 31.1 H (22.0-30.0) sec Chloride 96 L (98-107) mmol/L Carbon Dioxide 39 H (22-30) mmol/L BUN 48 H (7-17) mg/dL Creatinine 1.55 H (0.52-1.04) mg/dL Glucose 123 H (74-99) mg/dL POC Glucose (mg/dL) (70-110) mg/dL Total Bilirubin 1.4 H (0.2-1.3) mg/dL Troponin I (0.000-0.034) ng/mL 11/12/22 11/12/22 11/12/22 Range/Units 15:21 18:37 22:34 WBC (3.8-10.6) k/uL RBC (3.80-5.40) m/uL Hgb (11.4-16.0) gm/dL Neutrophils # (1.3-7.7) k/uL APTT (22.0-30.0) sec Chloride (98-107) mmol/L Carbon Dioxide (22-30) mmol/L BUN (7-17) mg/dL Creatinine (0.52-1.04) mg/dL Glucose (74-99) mg/dL POC Glucose (mg/dL) (70-110) mg/dL Total Bilirubin (0.2-1.3) mg/dL Troponin I 0.059 H* 0.051 H* 0.047 H* (0.000-0.034) ng/mL 11/13/22 Range/Units 06:12 WBC (3.8-10.6) k/uL RBC (3.80-5.40) m/uL Hgb (11.4-16.0) gm/dL Neutrophils # (1.3-7.7) k/uL APTT (22.0-30.0) sec Chloride (98-107) mmol/L Carbon Dioxide (22-30) mmol/L BUN (7-17) mg/dL Creatinine (0.52-1.04) mg/dL Glucose (74-99) mg/dL POC Glucose (mg/dL) 153 H (70-110) mg/dL Total Bilirubin (0.2-1.3) mg/dL Troponin I (0.000-0.034) ng/mL Thrombosis Risk Factor Assmnt - Choose All That Apply Each Factor Represents 1 point: Abnormal pulmonary function (COPD), Heart failure (<1month), Obesity (BMI >25), Swollen legs (current) Each Risk Factor Represents 3 Points: Age 75 years or older Thrombosis Risk Factor Assessment Total Risk Factor Score: 7 Thrombosis Risk Factor Assessment Level: High Risk Assessment and Plan Assessment: Acute COPD exacerbation Possible Acute on chronic CHF exacerbation, unknown ejection fraction elevated troponin Acute hypoxic respiratory failure Acute kidney injury Atrial fibrillation on blood thinner History of asthma Plan: Continue with IV Solu-Medrol Continue with IV Lasix Cardiology consult Labs and medication were reviewed.. Continue same treatment. Continue with symptomatic treatment. Resume home medication. Monitor labs and vitals. DVT and GI prophylaxis. Further recommendations as per clinical course of the patient DVT prophylaxis: Outputeliquis GI Prophylaxis: ppi PT/OT: Pending Prognosis is guarded
[2022-11-13 11:39] LABS: Glucose,Whole Blood 150 mg/dL (70-110)
--- NOTE | 2022-11-13 12:35 | P.CNPUL ---
History of Present Illness Consult date: 11/13/22 Reason for consult: dyspnea History of present illness: 77-year-old female patient, known history of COPD, nausea chronic atrial fibrillation, along with possibility of CHF. 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 In any rate, she is presenting with increasing dyspnea,, cough, chest congestion and wheezing and her symptoms got worse over the past 1 week. She was also producing some yellowish. No pleurisy. No hemoptysis. She came into the emergency she was hospitalized for an acute COPD exacerbation. She's currently on 4 L of O2 nasal cannula. At home she is oxygen dependent and she is also on 3 L O2 nasal cannula. Her blood work shows a WBC count 12.9, hemoglobin of 10.8, her troponin was 0.05 respectively and the last level was 0.04 and a proBNP level was elevated at 6400. LFTs were normal. Electrodes are normal. D-dimer was 0.39. Chest x-ray was consistent with COPD and possibly a component of CHF. The vital screening was negative including influenza A and influenza B and RSV and Covid 19. 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 She is currently on a combination of bronchodilators and steroids. She was seen by cardiology. Echocardiogram was ordered. Review of Systems CONSTITUTIONAL: No fever, no malaise, no fatigue. HEENT: No recent visual problems or hearing problems. Denied any sore throat. CARDIOVASCULAR: No orthopnea, PND, no palpitations, no syncope. PULMONARY: No chest wall tenderness, no hemoptysis. Shortness of breath and cou gh and congestion as mentioned above GASTROINTESTINAL: No diarrhea, no nausea, no vomiting, no abdominal pain. Normoactive bowel sounds. NEUROLOGICAL: No headaches, no weakness, no numbness. HEMATOLOGICAL: Denies any bleeding or petechiae. GENITOURINARY: Denies any burning micturition, frequency, or urgency. MUSCULOSKELETAL/RHEUMATOLOGICAL: Denies any joint pain, swelling, or any muscle pain. ENDOCRINE: Denies any polyuria or polydipsia. Past Medical History Past Medical History: Atrial Fibrillation, Asthma, Cancer, Heart Failure, COPD, GERD/Reflux, Skin Disorder Additional Past Medical History / Comment(s): COPD, asthma, breast cancer-right lumpectomy and radiation therapy 25 years ago, wears 3L NC at home, chronic atri al fibrillation, CHF (systolic ). Arthritis, dry patch on right leg, gout History of Any Multi-Drug Resistant Organisms: None Reported Past Surgical History: Section, Heart Catheterization, Hernia Repair, Pacemaker Additional Past Surgical History / Comment(s): left hand surgery for broken index and middle finger Past Anesthesia/Blood Transfusion Reactions: No Reported Reaction Type of Cardiac Device: Permanent Pacemaker Device Placement Date:: 07/2021 Past Psychological History: Depression Smoking Status: Former smoker Past Alcohol Use History: Occasional Past Drug Use History: None Reported - Past Family History Mother Family Medical History: Diabetes Mellitus Medications and Allergies Home Medications Medication Instructions Recorded Confirmed Type Albuterol Inhaler [Ventolin Hfa 2 puff INHALATION RT-QID PRN 11/12/22 11/12/22 History Inhaler] Apixaban [Eliquis] 5 mg PO BID 11/12/22 11/12/22 History Bumetanide [Bumex] 1 mg PO DAILY 11/12/22 11/12/22 History Cholecalciferol [Vitamin D3 (25 75 mcg PO DAILY 11/12/22 11/12/22 History Mcg = 1000 Iu)] Colchicine 0.6 mg PO TUTH 11/12/22 11/12/22 History Ferrous Sulfate [Feosol] 325 mg PO DAILY 11/12/22 11/12/22 History Fexofenadine HCl [Jamee Allergy] 180 mg PO HS 11/12/22 11/12/22 History Fluticasone Propion/Salmeterol 1 puff INHALATION RT-BID 11/12/22 11/12/22 History [Advair 500-50 Diskus] Ipratropium-Albuterol Nebulize 3 ml INHALATION RT-QID PRN 11/12/22 11/12/22 History [Duoneb 0.5 mg-3 mg/3 ml Soln] Ipratropium/Albuter 20-100Mcg 1 puff INHALATION RT-QID PRN 11/12/22 11/12/22 History [Combivent Respimat 20-100Mcg Inhaler] Losartan Potassium 100 mg PO DAILY 11/12/22 11/12/22 History Magnesium Oxide [Mag-Ox] 400 mg PO DAILY 11/12/22 11/12/22 History Metoprolol Succinate [Metoprolol 75 mg PO HS 11/12/22 11/12/22 History Succinate ER] Montelukast [Singulair] 10 mg PO HS 11/12/22 11/12/22 History Pantoprazole [Protonix] 40 mg PO BID 11/12/22 11/12/22 History Potassium Chloride ER [K-Dur 20] 20 meq PO DAILY 11/12/22 11/12/22 History Power C Supplement 2 tab PO DAILY 11/12/22 11/12/22 History Tiotropium [place] [Spiriva] 18 mcg INHALATION RT-DAILY 11/12/22 11/12/22 History Vitamin B Complex 1 cap PO DAILY 11/12/22 11/12/22 History allopurinoL [Zyloprim] 200 mg PO DAILY 11/12/22 11/12/22 History Allergies Allergy/AdvReac Type Severity Reaction Status Date / Time aspirin Allergy Anaphylaxis Verified 11/12/22 17:25 ibuprofen Allergy Anaphylaxis Verified 11/12/22 17:25 Physical Exam Vitals: Vital Signs Temp Pulse Pulse Resp BP BP Pulse Ox 11/13/22 09:01 76 11/13/22 08:47 78 92 L 11/13/22 08:28 98.1 F 78 20 91/49 96 11/13/22 04:31 77 11/13/22 04:15 71 11/13/22 04:00 97.6 F 70 20 90/50 92 L 11/13/22 01:52 24 11/13/22 01:11 72 11/13/22 00:58 71 11/13/22 00:00 98.4 F 74 22 92/54 93 L 11/12/22 21:22 84 11/12/22 21:04 85 11/12/22 20:00 98.9 F 87 22 113/66 93 L 11/12/22 18:55 97.5 F L 77 18 103/64 95 11/12/22 17:53 87 18 116/64 93 L 11/12/22 17:33 90 11/12/22 17:25 90 11/12/22 16:55 84 20 94 L 11/12/22 16:31 83 18 114/76 94 L 11/12/22 14:59 98.5 F 22 11/12/22 14:52 85 22 113/63 92 L Intake and Output 11/12/22 11/13/22 11/13/22 22:59 06:59 14:59 Intake Total 240 Output Total 300 100 400 Balance -300 -100 -160 Intake: Oral 240 Output: Urine 300 100 400 Other: Voiding Method Bedside Commode Bedside Commode Bedside Commode # Bowel Movements 1 Weight 78.925 kg 80.4 kg GENERAL: The patient is alert and oriented x3, not in any acute distress. Well developed, well nourished. She is currently on 4 L of oxygen by nasal cannula. Breathing is nonlabored. Head exam was generally normal. There was no scleral icterus or corneal arcus. Mucous membranes were moist. HEENT: Pupils are round and equally reacting to light. EOMI. No scleral icterus. No conjunctival pallor. Normocephalic, atraumatic. No pharyngeal erythema. No thyromegaly. CARDIOVASCULAR: S1 and S2 present. No murmurs, rubs, or gallops. She is currently in a paced rhythm. Overall heart sounds are distant. -PULMONARY: Chest is clear to auscultation, bilateral expiratory wheezing ABDOMEN: Soft, nontender, nondistended, normoactive bowel sounds. No palpable organomegaly. MUSCULOSKELETAL: No joint swelling or deformity. EXTREMITIES: No cyanosis, clubbing, or pedal edema. NEUROLOGICAL: Gross neurological examination did not reveal any focal deficits. SKIN: No rashes. no petechiae. Results - Laboratory Findings CBC and BMP: 11/12/22 15:21 11/13/22 09:13 PT/INR, D-dimer PT 11.5 sec (9.0-12.0) 11/12/22 15:21 INR 1.1 (<1.2) 11/12/22 15:21 D-Dimer 0.39 mg/L FEU (<0.60) 11/12/22 15:21 Abnormal lab findings: Abnormal Labs 11/12/22 11/12/22 11/12/22 15:21 15:21 15:21 WBC 12.9 H RBC 3.63 L Hgb 10.8 L Neutrophils # 9.7 H APTT 31.1 H Chloride 96 L Carbon Dioxide 39 H BUN 48 H Creatinine 1.55 H Glucose 123 H POC Glucose (mg/dL) Total Bilirubin 1.4 H Troponin I 11/12/22 11/12/22 11/12/22 15:21 18:37 22:34 WBC RBC Hgb Neutrophils # APTT Chloride Carbon Dioxide BUN Creatinine Glucose POC Glucose (mg/dL) Total Bilirubin Troponin I 0.059 H* 0.051 H* 0.047 H* 11/13/22 11/13/22 06:12 09:13 WBC RBC Hgb Neutrophils # APTT Chloride 97 L Carbon Dioxide 31 H BUN 63 H Creatinine 1.90 H Glucose 242 H POC Glucose (mg/dL) 153 H Total Bilirubin Troponin I - Diagnostic Findings Chest x-ray: image reviewed Assessment and Plan Plan: Acute exacerbation of chronic COPD. The patient has severe COPD and she is auction dependent and she suffers from chronic hypoxic respiratory failure. Chest x-ray was reviewed and there is evidence of cardiomegaly, mitral vascular congestion and chronic scattered scarring and background COPD with hyperinflation. No evidence of any airspace disease. Severe COPD maintain on a combination of Spiriva and Advair an outpatient basis and the patient uses Combivent when necessary. She is an ex-smoker and she quit smoking more than 20 years ago. Acute on chronic hypoxic respiratory failure. Typically the patient is at 3 L at home and currently she is on 4 L Acute decompensated heart failure, proBNP level is elevated along with 4 vessel congestion Acute kidney injury, creatinine was at 1.5 at time of admission currently it's up to 1.9 Chronic itch of fibrillation Questionable history of tachybradycardia syndrome and the patient has a permanent pacemaker in place Abnormal troponin is, consider possibility of a acute non-STEMI. EKG showing a ventricular paced rhythm. The patient states that her cardiac catheterization approximately year ago was within normal limits. History of breast cancer with a previous lumpectomy and radiation therapy more than 25 years ago. History of gout Plan Continue bronchodilators Continue steroids and the patient is currently on IV Solu-Medrol dose of 40 mg IV every 8 hours She is on a combination of Spiriva and Advair at home. We will going to start her on Symbicort in the hospital. Management of atrial fibrillation per cardiology Management of CHF per cardiology Echocardiogram is pending Continue diuretics Lasix An ant 40 mg IV every 12 hours Continue anticoagulation with Eliquis We'll continue to follow
[2022-11-13 16:27] LABS: Glucose,Whole Blood 170 mg/dL (70-110)
[2022-11-13 20:02] LABS: Glucose,Whole Blood 227 mg/dL (70-110)
[2022-11-13] MEDS: METOPROLOL SUCCINATE (ER) 25 MG TAB.ER.24H PO SCH (20:14)
[2022-11-13] MEDS: LORATADINE 10 MG TAB PO SCH (20:14)
[2022-11-13] MEDS: MONTELUKAST 10 MG TAB PO SCH (20:15)
[2022-11-14] MEDS: IPRATROPIUM-ALBUTEROL 3 ML NEB INHALATION PRN ×4 (04:48→21:53)
[2022-11-14 06:14] LABS: Glucose,Whole Blood 180 mg/dL (70-110)
[2022-11-14] MEDS: FUROSEMIDE 10 MG/ML 4 ML VIAL IV SCH ×3 (06:28→23:04)
[2022-11-14] MEDS: INSULIN ASPART (NovoLOG) 100 UNIT/ML VIAL SQ SCH ×4 (06:28→20:50)
[2022-11-14] MEDS: IPRATROPIUM 0.5 MG/2.5 ML NEBU INHALATION SCH ×4 (08:14→21:53)
[2022-11-14 08:48] LABS: Calcium 9.4 mg/dL (8.4-10.2)
[2022-11-14] MEDS: CHOLECALCIFEROL 25 MCG (1000 IU) TABLET PO SCH (09:47)
[2022-11-14] MEDS: APIXABAN 5 MG TAB PO SCH ×2 (09:47→20:50)
[2022-11-14] MEDS: allopurinoL 100 MG TAB PO SCH (09:47)
[2022-11-14] MEDS: methylPREDNISolone SOD SUCCI 40 MG/ML 1 ML VIAL IV SCH (09:47)
[2022-11-14] MEDS: ASCORBIC ACID 500 MG TAB PO SCH (09:48)
[2022-11-14] MEDS: PANTOPRAZOLE 40 MG TABLET PO SCH ×2 (09:48→20:50)
[2022-11-14] MEDS: MAGNESIUM OXIDE 400 MG TAB PO SCH (09:48)
[2022-11-14] MEDS: POTASSIUM CHLORIDE ER 20 MEQ TAB.ER PO SCH (09:48)
[2022-11-14] MEDS: FERROUS SULFATE 325 MG TAB PO SCH (09:48)
--- NOTE | 2022-11-14 10:54 | P.NPCON ---
History of Present Illness - Reason for Consult acute renal failure - History of Present Illness Patient is a 77-year-old female with history of COPD, chronic A. fib, CHF who has recently moved into the [facility]. Patient has history of chronic kidney disease and was following with a chinese instructor. Patient is not aware of her baseline kidney function. Patient is admitted to the hospital with complaints of increasing shortness of breath, cough wheezing and weakness. Patient is currently being treated for COPD exacerbation as well as CHF exacerbation. Patient states she is feeling better. Serum creatinine 1.5 on initial admission and it is at 2.0 today. Patient states she has been voiding Blood pressure remains low with systolic in the 90s. Currently maintained on Lasix 40 mg IV every 12 hours No prior labs available for comparison of renal function Review of Systems As per HPI Past Medical History Past Medical History: Atrial Fibrillation, Asthma, Cancer, Heart Failure, COPD, GERD/Reflux, Skin Disorder Additional Past Medical History / Comment(s): COPD, asthma, breast cancer-right lumpectomy and radiation therapy 25 years ago, wears 3L NC at home, chronic atrial fibrillation, CHF (systolic ). Arthritis, dry patch on right leg, gout History of Any Multi-Drug Resistant Organisms: None Reported Past Surgical History: Section, Heart Catheterization, Hernia Repair, Pacemaker Additional Past Surgical History / Comment(s): left hand surgery for broken index and middle finger Past Anesthesia/Blood Transfusion Reactions: No Reported Reaction Type of Cardiac Device: Permanent Pacemaker Device Placement Date:: 07/2021 Past Psychological History: Depression Smoking Status: Former smoker Past Alcohol Use History: Occasional Past Drug Use History: None Reported - Past Family History Mother Family Medical History: Diabetes Mellitus Medications and Allergies Home Medications Medication Instructions Recorded Confirmed Type Albuterol Inhaler [Ventolin Hfa 2 puff INHALATION RT-QID PRN 11/12/22 11/12/22 History Inhaler] Apixaban [Eliquis] 5 mg PO BID 11/12/22 11/12/22 History Bumetanide [Bumex] 1 mg PO DAILY 11/12/22 11/12/22 History Cholecalciferol [Vitamin D3 (25 75 mcg PO DAILY 11/12/22 11/12/22 History Mcg = 1000 Iu)] Colchicine 0.6 mg PO TUTH 11/12/22 11/12/22 History Ferrous Sulfate [Feosol] 325 mg PO DAILY 11/12/22 11/12/22 History Fexofenadine HCl [Jamee Allergy] 180 mg PO HS 11/12/22 11/12/22 History Fluticasone Propion/Salmeterol 1 puff INHALATION RT-BID 11/12/22 11/12/22 History [Advair 500-50 Diskus] Ipratropium-Albuterol Nebulize 3 ml INHALATION RT-QID PRN 11/12/22 11/12/22 History [Duoneb 0.5 mg-3 mg/3 ml Soln] Ipratropium/Albuter 20-100Mcg 1 puff INHALATION RT-QID PRN 11/12/22 11/12/22 History [Combivent Respimat 20-100Mcg Inhaler] Losartan Potassium 100 mg PO DAILY 11/12/22 11/12/22 History Magnesium Oxide [Mag-Ox] 400 mg PO DAILY 11/12/22 11/12/22 History Metoprolol Succinate [Metoprolol 75 mg PO HS 11/12/22 11/12/22 History Succinate ER] Montelukast [Singulair] 10 mg PO HS 11/12/22 11/12/22 History Pantoprazole [Protonix] 40 mg PO BID 11/12/22 11/12/22 History Potassium Chloride ER [K-Dur 20] 20 meq PO DAILY 11/12/22 11/12/22 History Power C Supplement 2 tab PO DAILY 11/12/22 11/12/22 History Tiotropium [place] [Spiriva] 18 mcg INHALATION RT-DAILY 11/12/22 11/12/22 History Vitamin B Complex 1 cap PO DAILY 11/12/22 11/12/22 History allopurinoL [Zyloprim] 200 mg PO DAILY 11/12/22 11/12/22 History Allergies Allergy/AdvReac Type Severity Reaction Status Date / Time aspirin Allergy Anaphylaxis Verified 11/12/22 17:25 ibuprofen Allergy Anaphylaxis Verified 11/12/22 17:25 Physical Exam Vitals: Vital Signs Temp Pulse Pulse Pulse Resp BP Pulse Ox 11/14/22 09:45 98.1 F 70 18 120/68 96 11/14/22 05:01 78 11/14/22 04:50 70 11/14/22 03:36 97.5 F L 73 20 94/60 94 L 04/24/23 00:00 97.8 F 72 20 107/56 97 11/13/22 21:16 72 11/13/22 21:06 70 11/13/22 19:56 97.8 F 70 22 117/56 92 L 11/13/22 16:05 98.1 F 71 20 102/62 92 L 11/13/22 15:58 77 20 11/13/22 15:49 71 20 11/13/22 12:53 72 11/13/22 12:42 74 11/13/22 11:32 98.2 F 71 20 100/62 91 L Intake and Output 11/13/22 11/14/22 11/14/22 22:59 06:59 14:59 Intake Total 236 118 Output Total 400 350 Balance 236 -400 -232 Intake: Oral 236 118 Output: Urine 400 Urine/Stool Mix 350 Other: Voiding Method Bedside Commode Bedside Commode # Voids 1 Weight 78.1 kg Patient is awake, comfortable, no acute distress Short of breath Examination of the heart S1 and S2 Examination lungs shows bilateral wheezing abdomen is soft nontender Examination lower extremity shows trace edema bilaterally DOUGH RAISER exam grossly intact Results - Lab Results Most recent lab results Calcium 9.4 mg/dL (8.4-10.2) 11/14/22 07:46 11/12/22 15:21 11/14/22 07:46 Assessment and Plan Assessment: 1. Acute kidney injury nonoliguric secondary to hypotension and component of cardiorenal syndrome. Currently being diuresed. Blood pressure remains on the lower side. Consider decreasing dose of metoprolol. Check UA and ultrasound of the kidneys Rule out urine retention 2. Chronic kidney disease most likely NKF stage IV. Baseline renal function not available. Patient was seen a chinese instructor prior to moving into the [facility] recently. Has not established with a chinese instructor yet. 3. CHF exacerbation currently being diuresed. Ejection fraction not available yet 4. COPD exacerbation maintained on steroids 5. History of chronic A. fib Plan: Continue current dose of Lasix Check bladder scan and rule out urine retention Check urine analysis Check ultrasound of the kidneys Consider decreasing dose of metoprolol Repeat labs in a.m. Patient will need to follow-up as outpatient for CK D. Thank you for the consultation. We will continue to follow the patient with you during her hospitalization
[2022-11-14 11:49] LABS: Glucose,Whole Blood 117 mg/dL (70-110)
[2022-11-14] MEDS: SYMBICORT 160-4.5 MCG INHALER INHALATION SCH ×2 (11:49→21:53)
[2022-11-14 11:55] LABS: Appearance,Urine Clear (Clear); Bacteria,Urine Many /hpf; Bilirubin,Urine Negative (Negative); Blood,Urine Negative (Negative); Color,Urine Light Yellow; Glucose,Urine (UA) Negative (Negative); Hyaline Casts,Urine 4 /lpf (0-2); Ketones,Urine Negative (Negative); Leukocyte Esterase,Urine Small (Negative); Mucus,Urine Rare /hpf; Nitrite,Urine Negative (Negative); Protein,Urine Negative (Negative); RBC,Urine <1 /hpf (0-5); Specific Gravity,Urine 1.009 (1.001-1.035); Urobilinogen,Urine <2.0 mg/dL (<2.0); WBC,Urine 1 /hpf (0-5)
[2022-11-14] MEDS: methylPREDNISolone SOD SUCCI 125 MG/2 ML VIAL IV SCH ×3 (12:15→23:04)
--- NOTE | 2022-11-14 13:14 | US ---
EXAMINATION TYPE: US kidneys/renal and bladder DATE OF EXAM: 11/14/2022 COMPARISON: NONE CLINICAL INDICATION: Female, 77 years old with history of yovanny; YOVANNY EXAM MEASUREMENTS: Right Kidney: 9.7 x 3.6 x 4.0 cm Left Kidney: 8.7 x 4.1 x 3.8 cm Right Kidney: Cortical thinning no hydronephrosis or calculus. Left Kidney: Small in size, cortical thinning , no hydronephrosis or calculus. Bladder: wnl Bilateral Jets seen: No IMPRESSION: Medical renal disease with cortical thinning. No evidence of obstructive uropathy or calculus.
--- NOTE | 2022-11-14 13:39 | P.PN ---
Subjective Progress Note Date: 11/14/22 77-year-old female patient, known history of COPD, nausea chronic atrial fibrillation, along with possibility of CHF. 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 In any rate, she is presenting with increasing dyspnea,, cough, chest congestion and wheezing and her symptoms got worse over the past 1 week. She was also producing some yellowish. No pleurisy. No hemoptysis. She came into the emergency she was hospitalized for an acute COPD exacerbation. She's currently on 4 L of O2 nasal cannula. At home she is oxygen dependent and she is also on 3 L O2 nasal cannula. Her blood work shows a WBC count 12.9, hemoglobin of 10.8, her troponin was 0.05 respectively and the last level was 0.04 and a proBNP level was elevated at 6400. LFTs were normal. Electrodes are normal. D-dimer was 0.39. Chest x-ray was consistent with COPD and possibly a component of CHF. The vital screening was negative including influenza A and influenza B and RSV and Covid 19. 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 She is currently on a combination of bronchodilators and steroids. She was seen by cardiology. Echocardiogram was ordered. The patient is seen today 11/14/2022 in follow-up on the selective care unit. She is currently resting fairly comfortable in bed. She is still somewhat bronchospastic and wheezy. She is maintaining O2 saturations in the 90s on 4 L/m per nasal cannula. Ultrasound of the kidneys revealed medical renal disease with cortical thinning. No evidence of obstructive uropathy or calculus. Echocardiogram is pending. She is continued on DuoNeb inhalations, Symbicort, IV Solu-Medrol. Remains on IV Lasix every 12 hours. Anticoagulated with Eliquis. Currently in a negative balance. Sodium 138. Potassium 5.0. Chloride 97. Bicarb 32. BUN 79. Creatinine 2.01. Glucose 159. Objective - Vital Signs Vital signs: Vital Signs Temp 98.2 F 11/14/22 12:15 Pulse 77 11/14/22 12:15 Resp 16 11/14/22 12:15 BP 118/71 11/14/22 12:15 Pulse Ox 96 11/14/22 09:45 FiO2 Intake & Output 11/13/22 11/14/22 11/14/22 18:59 06:59 18:59 Intake Total 476 368 Output Total 400 400 705 Balance 76 -400 -337 Weight 78.1 kg Intake: Oral 476 368 Output: Urine 400 400 300 Post Void Residual 55 Urine/Stool Mix 350 Other: Voiding Method Bedside Commode Bedside Commode Bedside Commode # Voids 1 # Bowel Movements 1 - Exam GENERAL EXAM: Alert, pleasant 77-year-old female, on 4 L nasal cannula, fairly comfortable in no apparent distress. HEAD: Normocephalic. EYES: Normal reaction of pupils, equal size. NOSE: Clear with pink turbinates. THROAT: No erythema or exudates. NECK: No masses, no JVD. CHEST: No chest wall deformity. LUNGS: Equal air entry with bilateral wheezing, few scattered rhonchi, diminished. CVS: S1 and S2 normal with no audible murmur, regular rhythm. Paced. ABDOMEN: No hepatosplenomegaly, normal bowel sounds, no guarding or rigidity. SPINE: No scoliosis or deformity SKIN: No rashes CENTRAL NERVOUS SYSTEM: No focal deficits, tone is normal in all 4 extremities. EXTREMITIES: There is no peripheral edema. No clubbing, no cyanosis. Peripheral pulses are intact. - Labs CBC & Chem 7: 11/12/22 15:21 11/14/22 07:46 Labs: Abnormal Lab Results - Last 24 Hours (Table) 11/13/22 11/13/22 11/14/22 Range/Units 16:25 20:00 06:13 Chloride (98-107) mmol/L Carbon Dioxide (22-30) mmol/L BUN (7-17) mg/dL Creatinine (0.52-1.04) mg/dL Glucose (74-99) mg/dL POC Glucose (mg/dL) 170 H 227 H 180 H (70-110) mg/dL Ur Leukocyte Esterase (Negative) Urine Bacteria (None) /hpf Hyaline Casts (0-2) /lpf Urine Mucus (None) /hpf 11/14/22 11/14/22 11/14/22 Range/Units 07:46 09:40 11:42 Chloride 97 L (98-107) mmol/L Carbon Dioxide 32 H (22-30) mmol/L BUN 79 H (7-17) mg/dL Creatinine 2.01 H (0.52-1.04) mg/dL Glucose 159 H (74-99) mg/dL POC Glucose (mg/dL) 117 H (70-110) mg/dL Ur Leukocyte Esterase Small H (Negative) Urine Bacteria Many H (None) /hpf Hyaline Casts 4 H (0-2) /lpf Urine Mucus Rare H (None) /hpf Assessment and Plan Assessment: Acute exacerbation of chronic COPD. The patient has severe COPD and she is auction dependent and she suffers from chronic hypoxic respiratory failure. Chest x-ray was reviewed and there is evidence of cardiomegaly, pulmonary vascular congestion and chronic scattered scarring and background COPD with hyperinflation. No evidence of any airspace disease. Severe COPD maintain on a combination of Spiriva and Advair an outpatient basis and the patient uses Combivent when necessary. She is an ex-smoker and she quit smoking more than 20 years ago. Acute on chronic hypoxic respiratory failure. Typically the patient is at 3 L at home and currently she is on 4 L Acute decompensated heart failure, proBNP level is elevated along with pulmonary congestion Acute kidney injury, creatinine was at 1.5 at time of admission currently it's up to 2.01. Ultrasound reveals medical renal disease with cortical thinning. No evidence of obstructive uropathy or calculus. Chronic atrial fibrillation, anticoagulated with Eliquis Questionable history of tachybradycardia syndrome and the patient has a permanent pacemaker in place Abnormal troponin is, consider possibility of a acute non-STEMI. EKG showing a ventricular paced rhythm. The patient states that her cardiac catheterization approximately year ago was within normal limits. History of breast cancer with a previous lumpectomy and radiation therapy more than 25 years ago. History of gout Plan: The patient was seen and evaluated Ultrasound of the kidneys, medications and labs reviewed Increased IV Solu-Medrol to 60 every 6 hours Increase Lasix to 40 mg every 8 hours Continue bronchodilators Anticoagulated with Eliquis Echocardiogram is pending Titrate the FiO2 as tolerated We'll continue to follow I have personally seen and examined the patient, performed the documentation and the assessment and plan as written. Number of minutes spent on the visit: 10.
[2022-11-14 14:57] VITALS: BMI 32.5
[2022-11-14 16:29] LABS: Glucose,Whole Blood 255 mg/dL (70-110)
--- NOTE | 2022-11-14 19:56 | P.PN ---
Subjective History of Present Illness: The patient is a 77-year-old female who is followed by Dr. Palacio regarding her cardiac status who presents with symptoms of progressive dyspnea, cough for the last few days, worse yesterday. In the emergency room she was noted to be in atrial fibrillation and had evidence of exacerbation of COPD and CHF. She has a known history of permanent atrial fibrillation, anticoagulated, post permanent pacemaker implantation. She has underwent a cardiac catheterization according to her a year ago that showed no evidence of obstructive CAD. She has no prior history of myocardial infarction. She recalls being told that her ejection fraction is 40%. Her symptoms were getting worse over the last few days but not associated with chest pain or fever. She had wheezing and cough. She had mild peripheral edema. She has been anticoagulated. She has a history of COPD but has not smoked in over 20 years. In the emergency room her troponin were mildly elevated and her NT proBNP was elevated as well. Her coronary risk factors are positive for hypertension, her lipid profile is not available. Medications: Bumex 1 mg daily, potassium, Singulair, colchicine, Spiriva, Ventolin, Combivent, Advair, metoprolol succinate 75 mg daily,Eliquis 5 mg twice a day 11/14 Patient remains on diuretics with increasing creatinine 1.5-1.9-2.0. Awaiting 2-D echo. Nephrology was consulted and continuing IV diuretics with conside ration of possibly holding metoprolol or decreasing. Was somewhat hypotensive 94/60 this morning. Lasix was increased to 40mg IV TID. Physical Examination: Vitals reviewed Head: Normocephalic. Eyes: Sclerae nonicteric. Neck: Good carotid upstroke, no bruit, no jugular venous distention. Lungs: Diffuse wheezes bilaterally with decreased air exchange Heart: Irregular rate and rhythm, S1-S2, no S3, no rub. Systolic ejection murmur. Abdomen: Soft nontender, positive bowel sounds no organomegaly. Extremities: No edema, intact distal pulses. Impression: 1. Progressive dyspnea with a combination of exacerbation of COPD and CHF, suspect more related to COPD with diffuse wheeze 2. Chronic persistent atrial fibrillation, anticoagulated 3. Status post permanent pacemaker implantation 4. History of hypertension 5. Troponin elevation most likely representing type II myocardial infarction related to the COPD and CHF 6. Abnormal renal function of unknown duration 7. No evidence of high-grade CAD per patient by cardiac catheterization about a year ago Plan: Await 2-D echo. Obtain prior cardiac catheterization report from [facility]. Continue with beta angelito and decreased dose if continues to have borderline blood pressures. Patient has had increasing creatinine with diuresis and monitor closely. Diuretics were increased by pulmonology to 3 times a day and monitor response/Cr. Shortness of breath appears more related to COPD with diffuse wheezing. Optimize heart failure regimen as able. Objective - Vital Signs Vital signs: Vital Signs Temp 98.2 F 11/14/22 12:15 Pulse 75 11/14/22 17:10 Resp 16 11/14/22 17:10 BP 121/78 11/14/22 17:10 Pulse Ox 92 L 11/14/22 17:10 FiO2 Intake & Output 11/14/22 11/14/22 11/15/22 06:59 18:59 06:59 Intake Total 568 Output Total 400 1005 Balance -400 -437 Weight 78.1 kg 78.1 kg Intake: Oral 568 Output: Urine 400 600 Post Void Residual 55 Urine/Stool Mix 350 Other: Voiding Method Bedside Commode Bedside Commode # Voids 1 - Labs CBC & Chem 7: 11/12/22 15:21 11/14/22 07:46 Labs: Abnormal Lab Results - Last 24 Hours (Table) 11/13/22 11/14/22 11/14/22 Range/Units 20:00 06:13 07:46 Chloride 97 L (98-107) mmol/L Carbon Dioxide 32 H (22-30) mmol/L BUN 79 H (7-17) mg/dL Creatinine 2.01 H (0.52-1.04) mg/dL Glucose 159 H (74-99) mg/dL POC Glucose (mg/dL) 227 H 180 H (70-110) mg/dL Ur Leukocyte Esterase (Negative) Urine Bacteria (None) /hpf Hyaline Casts (0-2) /lpf Urine Mucus (None) /hpf 11/14/22 11/14/22 11/14/22 Range/Units 09:40 11:42 16:25 Chloride (98-107) mmol/L Carbon Dioxide (22-30) mmol/L BUN (7-17) mg/dL Creatinine (0.52-1.04) mg/dL Glucose (74-99) mg/dL POC Glucose (mg/dL) 117 H 255 H (70-110) mg/dL Ur Leukocyte Esterase Small H (Negative) Urine Bacteria Many H (None) /hpf Hyaline Casts 4 H (0-2) /lpf Urine Mucus Rare H (None) /hpf
[2022-11-14 20:24] LABS: Glucose,Whole Blood 309 mg/dL (70-110)
[2022-11-14] MEDS: LORATADINE 10 MG TAB PO SCH (20:50)
[2022-11-14] MEDS: METOPROLOL SUCCINATE (ER) 25 MG TAB.ER.24H PO SCH (20:50)
[2022-11-14] MEDS: MONTELUKAST 10 MG TAB PO SCH (20:50)
[2022-11-15] MEDS: IPRATROPIUM-ALBUTEROL 3 ML NEB INHALATION PRN ×2 (01:27→21:57)
--- NOTE | 2022-11-15 06:03 | P.PN ---
Subjective Progress Note Date: 11/14/22 This is a pleasant 77 years old female with past medical history of Atrial Fibrillation, Asthma, Heart Failure, COPD, GERD/Reflux Presents because of dyspnea and shortness of breath of 1 week duration a ssociated with cough more than one month sometimes with yellow phlegm Patient denies chest pain. No urinary or GI complaints, no dysuria urgency vomiting or diarrhea. No abdominal pain, no headache dizziness weakness or numbness No smoking or illicit tracts, she uses alcohol occasionally She says that she's being nitrite lately and she is being less amount. She's been treated oxygen nasal cannula at home. Vitals reviewed, patient is afebrile. Blood pressure low-normal 90/50. Blood pressure was better on admission 113/63. Patient states 22 and he is saturating 92% on 4 L oxygen via nasal cannula Labs showing mild leukocytosis of 12.9, hemoglobin 10.8. D-dimer is negative at 0.39. Creatinine elevated 1.5, unknown baseline. Electrolytes normal. Liver enzymes elevated. troponin is elevated at 0.059, 0.051, 0.047. probnp is elevated 6400. 3 virus is not detected influenza, rsv and coronavirus ekg showing irregular. Prolonged QRS, some paced rhythm rate around 81, no significant ST-T changes 11/14/2022 Patient is seen and evaluated in follow-up today with multiple medical cons ultations including cardiology and pulmonary following. Patient being treated for CHF/COPD exacerbation. Patient was continued on IV steroids along with breathing treatments and will continue. Patient also continues on IV Lasix and will continue for an additional 24 hours and follow-up with repeat labs his kidney functions are worsening. Nephrology is consulted and pending. Patient is currently afebrile continues to report some shortness of breath all feels improved from admission and asking when she is able to go home. Patient currently maintained on oxygen as well. Await PT/OT therapy evaluation Review of systems: Constitutional: No reports of fatigue, fever, or chills Cardiovascular: No reports of chest pain or palpitations Respiratory: reports of shortness of breath with some wheezing GI: No reports of nausea, vomiting, or diarrhea : No reports of dysuria or retention Neurovascular: No reports of weakness or numbness All medications have been reviewed Active Medications Albuterol/Ipratropium (Ipratropium-Albuterol 3 Ml Neb) 3 ml INHALATION RT-QID PRN PRN Reason: Shortness Of Breath Last Admin: 11/14/22 15:57 Dose: 3 ml Allopurinol (Allopurinol 100 Mg Tab) 200 mg PO DAILY [facility] Last Admin: 11/14/22 09:47 Dose: 200 mg Apixaban (Apixaban 5 Mg Tab) 5 mg PO BID [facility]; Protocol Last Admin: 11/14/22 09:47 Dose: 5 mg Ascorbic Acid (Ascorbic Acid 500 Mg Tab) 500 mg PO DAILY [facility] Last Admin: 11/14/22 09:48 Dose: 500 mg Budesonide/Formoterol Fumarate (Symbicort 160-4.5 Mcg Inhaler) 2 puff INHALATION RT-BID [facility] Last Admin: 11/14/22 11:49 Dose: 2 puff Cholecalciferol (Cholecalciferol 25 Mcg (1000 Iu) Tablet) 75 mcg PO DAILY [facility] Last Admin: 11/14/22 09:47 Dose: 75 mcg Colchicine (Colchicine 0.6 Mg Each) 0.6 mg PO [facility] Dextrose/Water (Dextrose 50% Syringe 50 Ml) 25 ml IVP PER PROTOCOL PRN; Protocol PRN Reason: Hypoglycemia Dextrose/Water (Dextrose 50% Syringe 50 Ml) 50 ml IVP PER PROTOCOL PRN; Protocol PRN Reason: Hypoglycemia Ferrous Sulfate (Ferrous Sulfate 325 Mg Tab) 325 mg PO [facility]ILY [facility] Last Admin: 11/14/22 09:48 Dose: 325 mg Furosemide (Furosemide 10 Mg/Ml 4 Ml Vial) 40 mg IV Q8HR [facility] Last Admin: 11/14/22 17:12 Dose: 40 mg Insulin Aspart (Insulin Aspart (Novolog) 100 Unit/Ml Vial) 0 unit SQ ACHS [facility]; Protocol Last Admin: 11/14/22 17:12 Dose: 6 unit Ipratropium [place] (Ipratropium 0.5 Mg/2.5 Ml Nebu) 0.5 mg INHALATION RT-QID [facility] Last Admin: 11/14/22 15:57 Dose: Not Given Loratadine (Loratadine 10 Mg Tab) 10 mg PO [facility] Last Admin: 11/13/22 20:14 Dose: 10 mg Magnesium Oxide (Magnesium Oxide 400 Mg Tab) 400 mg PO DAILY [facility] Last Admin: 11/14/22 09:48 Dose: 400 mg Methylprednisolone Sodium Succinate (Methylprednisolone Sod Succi 125 Mg/2 Ml Vial) 60 mg IV Q6HR [facility] Last Admin: 11/14/22 17:12 Dose: 60 mg Metoprolol Succinate (Metoprolol Succinate (Er) 25 Mg Tab.Er.24h) 75 mg PO [facility] Last Admin: 11/13/22 20:14 Dose: 75 mg Montelukast Sodium (Montelukast 10 Mg Tab) 10 mg PO [facility] Last Admin: 11/13/22 20:15 Dose: 10 mg Pantoprazole Sodium (Pantoprazole 40 Mg Tablet) 40 mg PO BID [facility] Last Admin: 11/14/22 09:48 Dose: 40 mg Potassium Chloride (Potassium Chloride Er 20 Meq Tab.Er) 20 meq PO DAILY [facility] Last Admin: 11/14/22 09:48 Dose: 20 meq Physical exam: GENERAL: The patient is alert and oriented x3, not in any acute distress. Well developed, well nourished. Obese. HEENT: Pupils are round and equally reacting to light. EOMI. No scleral icterus. No conjunctival pallor. Normocephalic, atraumatic. No pharyngeal erythema. No thyromegaly. CARDIOVASCULAR: S1 and S2 present. No murmurs, rubs, or gallops. PULMONARY: Diminished breath sounds bilaterally with bilateral expiratory wheezing ABDOMEN: Soft, nontender, nondistended, normoactive bowel sounds. No palpable organomegaly. MUSCULOSKELETAL: No joint swelling or deformity. EXTREMITIES: No cyanosis, clubbing, or pedal edema. NEUROLOGICAL: Gross neurological examination did not reveal any focal deficits. SKIN: No rashes. no petechiae. Assessment: Acute COPD exacerbation Possible Acute on chronic CHF exacerbation, unknown ejection fraction, elevated troponin Acute hypoxic respiratory failure Acute kidney injury Atrial fibrillation on blood thinner History of asthma GI and DVT prophylaxis Plan: Continue with IV Solu-Medrol and has been increased with pulmonary following to 60 mg every 6 Cardiology following his patient is maintained on IV Lasix and will continue and nephrology consulted due to worsening kidney functions Patient with some weakness recommend PT/OT therapy evaluation Will follow-up on repeat labs and continue to monitor closely Prognosis is guarded The impression and plan of care has been dictated by Syl Perez, Nurse Practitioner as directed. Dr. Maribell MD I have performed a history and examination and MDM of this patient, discussed the same with the dictator, and agree with the dictator's assessment and plan as written ,documented as a scribe. Based on total visit time, I have performed more than 50% of the visit. Objective - Vital Signs Vital signs: Vital Signs Temp 97.5 F L 11/14/22 03:36 Pulse 78 11/14/22 05:01 Resp 20 11/14/22 03:36 BP 94/60 11/14/22 03:36 Pulse Ox 94 L 11/14/22 03:36 FiO2 Intake & Output 11/13/22 11/14/22 11/14/22 18:59 06:59 18:59 Intake Total 476 118 Output Total 400 400 350 Balance 76 -400 -232 Weight 78.1 kg Intake: Oral 476 118 Output: Urine 400 400 Urine/Stool Mix 350 Other: Voiding Method Bedside Commode Bedside Commode # Voids 1 # Bowel Movements 1 - Labs CBC & Chem 7: 11/12/22 15:21 11/14/22 07:46 Labs: Abnormal Lab Results - Last 24 Hours (Table) 11/13/22 11/13/22 11/13/22 Range/Units 09:13 11:36 16:25 Chloride 97 L (98-107) mmol/L Carbon Dioxide 31 H (22-30) mmol/L BUN 63 H (7-17) mg/dL Creatinine 1.90 H (0.52-1.04) mg/dL Glucose 242 H (74-99) mg/dL POC Glucose (mg/dL) 150 H 170 H (70-110) mg/dL 11/13/22 11/14/22 11/14/22 Range/Units 20:00 06:13 07:46 Chloride 97 L (98-107) mmol/L Carbon Dioxide 32 H (22-30) mmol/L BUN 79 H (7-17) mg/dL Creatinine 2.01 H (0.52-1.04) mg/dL Glucose 159 H (74-99) mg/dL POC Glucose (mg/dL) 227 H 180 H (70-110) mg/dL
[2022-11-15 06:11] LABS: Glucose,Whole Blood 128 mg/dL (70-110)
[2022-11-15] MEDS: INSULIN ASPART (NovoLOG) 100 UNIT/ML VIAL SQ SCH ×4 (06:11→20:42)
[2022-11-15] MEDS: methylPREDNISolone SOD SUCCI 125 MG/2 ML VIAL IV SCH ×4 (06:40→23:11)
--- NOTE | 2022-11-15 07:40 | CA ---
Transthoracic Echo Report Name: Taylor Willingham Age: 77 Gender: F : 1945 Exam Date: 11/14/2022 08:12 Exam Location: [place] [facility] Ht (in): 61 Wt (lb): 172 Ordering Physician: Kellie Benitez MD ([id number]) Attending/Referring Phys: Electronic Pagination System Operator Wendy Taylor RDCS Procedure CPT: Indications: atrial fibrillation Cardiac Hx: Technical Quality: Fair Contrast 1: Total Dose (mL): Contrast 2: Total Dose (mL): MEASUREMENTS (Male / Female) Normal Values 2D ECHO LV Diastolic Diameter PLAX 4.6 cm 4.2 - 5.9 / 3.9 - 5.3 cm LV Systolic Diameter PLAX 3.2 cm IVS Diastolic Thickness 1.2 cm 0.6 - 1.0 / 0.6 - 0.9 cm LVPW Diastolic Thickness 1.0 cm 0.6 - 1.0 / 0.6 - 0.9 cm LV Relative Wall Thickness 0.5 RV Internal Dim ED PLAX 5.2 cm M-MODE Aortic Root Diameter MM 2.5 cm LA Systolic Diameter MM 6.0 cm LA Ao Ratio MM 2.4 AV Cusp Separation MM 2.0 cm DOPPLER AV Peak Velocity 202.6 cm/s AV Peak Gradient 16.4 mmHg AV Mean Velocity 152.7 cm/s AV Mean Gradient 10.1 mmHg AV Velocity Time Integral 46.5 cm LVOT Peak Velocity 85.6 cm/s LVOT Peak Gradient 2.9 mmHg LVOT Velocity Time Integral 19.6 cm MV Area PHT 4.4 cm??? Mitral E Point Velocity 100.8 cm/s Mitral A Point Velocity 0.3 cm/s Mitral E to A Ratio 361.9 MV Deceleration Time 170.8 ms TR Peak Velocity 392.3 cm/s TR Peak Gradient 61.6 mmHg Right Ventricular Systolic Press 66.6 mmHg FINDINGS Left Ventricle Mildly increased septal wall thickness. Mildly increased posterior wall thickness. Left ventricular cavity size normal. Normal left ventricular systolic function with no obvious regional wall motion abnormalities. Left ventricular ejection fraction is estimated at 50-55 %. Right Ventricle Severe right ventricular dilatation. Severe pulmonary hypertension. Right ventricular systolic pressure estimated at 67 mm hg. Right Atrium Moderate right atrial dilatation. Left Atrium Mildly increased left atrial area. Mitral Valve Structurally normal mitral valve. Mild mitral regurgitation. Aortic Valve Trileaflet aortic valve. Mild aortic stenosis with a peak gradient of 16 mmHg and a mean gradient of 10 mmHg. Trace aortic regurgitation. Tricuspid Valve Structurally normal tricuspid valve. Moderate tricuspid regurgitation. Pulmonic Valve Structurally normal pulmonic valve. Pericardium No pericardial effusion. Aorta Normal size aortic root and proximal ascending aorta. CONCLUSIONS Borderline LV systolic function with EF of around 50% Severe pulmonary hypertension. The pulmonary artery systolic pressure 67 mmHg Severe right ventricular dilation At least moderate tricuspid regurgitation Mild aortic stenosis Previewed by: Dr. German Corea MD (Electronically Signed) Final Date: 15 November 2022 07:39
[2022-11-15] MEDS: ASCORBIC ACID 500 MG TAB PO SCH (08:02)
[2022-11-15] MEDS: FUROSEMIDE 10 MG/ML 4 ML VIAL IV SCH ×2 (08:02→20:40)
[2022-11-15] MEDS: CHOLECALCIFEROL 25 MCG (1000 IU) TABLET PO SCH (08:02)
[2022-11-15] MEDS: PANTOPRAZOLE 40 MG TABLET PO SCH ×2 (08:02→20:40)
[2022-11-15] MEDS: POTASSIUM CHLORIDE ER 20 MEQ TAB.ER PO SCH (08:02)
[2022-11-15] MEDS: FERROUS SULFATE 325 MG TAB PO SCH (08:03)
[2022-11-15] MEDS: MAGNESIUM OXIDE 400 MG TAB PO SCH (08:03)
[2022-11-15] MEDS: allopurinoL 100 MG TAB PO SCH (08:03)
[2022-11-15] MEDS: APIXABAN 5 MG TAB PO SCH ×2 (08:03→20:40)
[2022-11-15] MEDS: COLCHICINE 0.6 MG EACH PO SCH (08:03)
[2022-11-15 09:15] LABS: Basophils % (A) 0 %; Eosinophils % (A) 0 %; HCT 34.1 % (34.0-46.0); HGB 10.7 gm/dL (11.4-16.0); Lymphocytes # (A) 0.4 k/uL (1.0-4.8); Lymphocytes % (A) 3 %; MCH 29.2 pg (25.0-35.0); MCHC 31.4 g/dL (31.0-37.0); MCV 92.9 fL (80.0-100.0); Mean Platelet Volume 8.7; Monocytes # (A) 0.4 k/uL (0-1.0); Monocytes % (A) 3 %; Neutrophils # (A) 11.7 k/uL (1.3-7.7); Neutrophils % (A) 93 %; Platelet Count 253 k/uL (150-450); RBC 3.67 m/uL (3.80-5.40); RDW 14.5 % (11.5-15.5); WBC 12.6 k/uL (3.8-10.6)
[2022-11-15 09:30] LABS: Calcium 9.2 mg/dL (8.4-10.2); Potassium 4.8 mmol/L (3.5-5.1)
[2022-11-15] MEDS: SYMBICORT 160-4.5 MCG INHALER INHALATION SCH ×2 (10:07→21:58)
[2022-11-15] MEDS: IPRATROPIUM 0.5 MG/2.5 ML NEBU INHALATION SCH ×4 (10:07→21:59)
[2022-11-15 11:40] LABS: Glucose,Whole Blood 142 mg/dL (70-110)
--- NOTE | 2022-11-15 11:51 | P.PN ---
Subjective Patient is seen for follow-up for acute kidney injury on top of chronic kidney disease. Admitted to the hospital with complaints of shortness of breath, cough, wheezing and increased weakness. Currently maintained on IV steroids for COPD exacerbation as well as diuretics for volume overload. Serum creatinine slightly improved to 1.8 from 2.2 yesterday. No retention noted. Post void residual was 55 mL. Overall feeling better Objective - Vital Signs Vital signs: Vital Signs Temp 97.9 F 11/15/22 08:00 Pulse 78 11/15/22 10:15 Resp 20 11/15/22 08:00 BP 127/63 11/15/22 08:00 Pulse Ox 96 11/15/22 10:00 FiO2 Intake & Output 11/14/22 11/15/22 11/15/22 18:59 06:59 18:59 Intake Total 568 418 Output Total 1005 400 Balance -437 18 Weight 78.1 kg 80.8 kg Intake: Oral 568 418 Output: Urine 600 400 Post Void Residual 55 Urine/Stool Mix 350 Other: Voiding Method Bedside Commode Toilet Toilet # Voids 1 1 # Bowel Movements 1 - Exam Patient is awake, comfortable, no acute distress Alert oriented 3 Examination of the heart S1 and S2 Examination lungs shows bilateral wheezing abdomen is soft nontender Examination lower extremity shows trace edema bilaterally [employer]ERY [employer] exam grossly intact - Labs CBC & Chem 7: 11/15/22 08:41 11/15/22 08:41 Labs: Abnormal Lab Results - Last 24 Hours (Table) 11/14/22 11/14/22 11/14/22 Range/Units 09:40 11:42 16:25 WBC (3.8-10.6) k/uL RBC (3.80-5.40) m/uL Hgb (11.4-16.0) gm/dL Neutrophils # (1.3-7.7) k/uL Lymphocytes # (1.0-4.8) k/uL Chloride (98-107) mmol/L Carbon Dioxide (22-30) mmol/L BUN (7-17) mg/dL Creatinine (0.52-1.04) mg/dL Glucose (74-99) mg/dL POC Glucose (mg/dL) 117 H 255 H (70-110) mg/dL Ur Leukocyte Esterase Small H (Negative) Urine Bacteria Many H (None) /hpf Hyaline Casts 4 H (0-2) /lpf Urine Mucus Rare H (None) /hpf 11/14/22 11/15/22 11/15/22 Range/Units 20:22 06:06 08:41 WBC 12.6 H (3.8-10.6) k/uL RBC 3.67 L (3.80-5.40) m/uL Hgb 10.7 L (11.4-16.0) gm/dL Neutrophils # 11.7 H (1.3-7.7) k/uL Lymphocytes # 0.4 L (1.0-4.8) k/uL Chloride (98-107) mmol/L Carbon Dioxide (22-30) mmol/L BUN (7-17) mg/dL Creatinine (0.52-1.04) mg/dL Glucose (74-99) mg/dL POC Glucose (mg/dL) 309 H 128 H (70-110) mg/dL Ur Leukocyte Esterase (Negative) Urine Bacteria (None) /hpf Hyaline Casts (0-2) /lpf Urine Mucus (None) /hpf 11/15/22 11/15/22 Range/Units 08:41 11:38 WBC (3.8-10.6) k/uL RBC (3.80-5.40) m/uL Hgb (11.4-16.0) gm/dL Neutrophils # (1.3-7.7) k/uL Lymphocytes # (1.0-4.8) k/uL Chloride 95 L (98-107) mmol/L Carbon Dioxide 37 H (22-30) mmol/L BUN 81 H (7-17) mg/dL Creatinine 1.80 H (0.52-1.04) mg/dL Glucose 201 H (74-99) mg/dL POC Glucose (mg/dL) 142 H (70-110) mg/dL Ur Leukocyte Esterase (Negative) Urine Bacteria (None) /hpf Hyaline Casts (0-2) /lpf Urine Mucus (None) /hpf Assessment and Plan Assessment: 1. Acute kidney injury nonoliguric secondary to hypotension and component of cardiorenal syndrome. Currently being diuresed. Consider decreasing dose of metoprolol. UA is benign and ultrasound of the kidneys shows no evidence of obstruction. 2. Chronic kidney disease most likely NKF stage IV. Baseline renal function not available. Patient was seen a sustainable landscape architect prior to moving into the [facility] recently. Has not established with a sustainable landscape architect here yet. 3. CHF exacerbation currently being diuresed. Ejection fraction not available yet 4. COPD exacerbation maintained on steroids 5. History of chronic A. fib Plan: Continue current dose of Lasix Patient will need to follow-up as outpatient for CK D.
--- NOTE | 2022-11-15 13:28 | P.PN ---
Subjective Progress Note Date: 11/15/22 77-year-old female patient, known history of COPD, nausea chronic atrial fibrillation, along with possibility of CHF. 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 In any rate, she is presenting with increasing dyspnea,, cough, chest congestion and wheezing and her symptoms got worse over the past 1 week. She was also producing some yellowish. No pleurisy. No hemoptysis. She came into the emergency she was hospitalized for an acute COPD exacerbation. She's currently on 4 L of O2 nasal cannula. At home she is oxygen dependent and she is also on 3 L O2 nasal cannula. Her blood work shows a WBC count 12.9, hemoglobin of 10.8, her troponin was 0.05 respectively and the last level was 0.04 and a proBNP level was elevated at 6400. LFTs were normal. Electrodes are normal. D-dimer was 0.39. Chest x-ray was consistent with COPD and possibly a component of CHF. The vital screening was negative including influenza A and influenza B and RSV and Covid 19. 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 She is currently on a combination of bronchodilators and steroids. She was seen by cardiology. Echocardiogram was ordered. The patient is seen today 11/14/2022 in follow-up on the selective care unit. She is currently resting fairly comfortable in bed. She is still somewhat bronchospastic and wheezy. She is maintaining O2 saturations in the 90s on 4 L/m per nasal cannula. Ultrasound of the kidneys revealed medical renal disease with cortical thinning. No evidence of obstructive uropathy or calculus. Echocardiogram is pending. She is continued on DuoNeb inhalations, Symbicort, IV Solu-Medrol. Remains on IV Lasix every 12 hours. Anticoagulated with Eliquis. Currently in a negative balance. Sodium 138. Potassium 5.0. Chloride 97. Bicarb 32. BUN 79. Creatinine 2.01. Glucose 159. The patient is seen today 11/15/2022 in follow-up on the selective care unit. She is breathing a bit easier today compared to yesterday. She is still requiri ng 4 L nasal cannula to maintain O2 saturations in the 90s. She does have oxygen at home that she is usually on 3 L. She's afebrile. Hemodynamically stable. White count 12.6. Hemoglobin 10.7. Platelets 253. Sodium 140. Potassium 4.8. Bicarb 37. BUN 81. Creatinine 1.80. Glucose 201. She is continued on DuoNeb inhalations, Symbicort, IV Solu-Medrol. Anticoagulated with Eliquis. Remains on IV diuretics. Currently in a -400 ML balance. Objective - Vital Signs Vital signs: Vital Signs Temp 98.4 F 11/15/22 12:20 Pulse 72 11/15/22 13:11 Resp 18 11/15/22 12:20 BP 132/78 11/15/22 12:20 Pulse Ox 96 11/15/22 12:20 FiO2 Intake & Output 11/14/22 11/15/22 11/15/22 18:59 06:59 18:59 Intake Total 568 536 Output Total 1005 400 Balance -437 136 Weight 78.1 kg 80.8 kg Intake: Oral 568 536 Output: Urine 600 400 Post Void Residual 55 Urine/Stool Mix 350 Other: Voiding Method Bedside Commode Toilet Toilet # Voids 1 1 # Bowel Movements 1 - Exam GENERAL EXAM: Alert, active 77-year-old female, on 4 L nasal cannula, comfortable in no apparent distress. HEAD: Normocephalic. EYES: Normal reaction of pupils, equal size. NOSE: Clear with pink turbinates. THROAT: No erythema or exudates. NECK: No masses, no JVD. CHEST: No chest wall deformity. LUNGS: Equal air entry with bilateral wheezing, few scattered rhonchi, diminished. CVS: S1 and S2 normal with no audible murmur, regular rhythm. Paced. ABDOMEN: No hepatosplenomegaly, normal bowel sounds, no guarding or rigidity. SPINE: No scoliosis or deformity SKIN: No rashes CENTRAL NERVOUS SYSTEM: No focal deficits, tone is normal in all 4 extremities. EXTREMITIES: There is no peripheral edema. No clubbing, no cyanosis. Peripheral pulses are intact. - Labs CBC & Chem 7: 11/15/22 08:41 11/15/22 08:41 Labs: Abnormal Lab Results - Last 24 Hours (Table) 11/14/22 11/14/22 11/15/22 Range/Units 16:25 20:22 06:06 WBC (3.8-10.6) k/uL RBC (3.80-5.40) m/uL Hgb (11.4-16.0) gm/dL Neutrophils # (1.3-7.7) k/uL Lymphocytes # (1.0-4.8) k/uL Chloride (98-107) mmol/L Carbon Dioxide (22-30) mmol/L BUN (7-17) mg/dL Creatinine (0.52-1.04) mg/dL Glucose (74-99) mg/dL POC Glucose (mg/dL) 255 H 309 H 128 H (70-110) mg/dL 11/15/22 11/15/22 11/15/22 Range/Units 08:41 08:41 11:38 WBC 12.6 H (3.8-10.6) k/uL RBC 3.67 L (3.80-5.40) m/uL Hgb 10.7 L (11.4-16.0) gm/dL Neutrophils # 11.7 H (1.3-7.7) k/uL Lymphocytes # 0.4 L (1.0-4.8) k/uL Chloride 95 L (98-107) mmol/L Carbon Dioxide 37 H (22-30) mmol/L BUN 81 H (7-17) mg/dL Creatinine 1.80 H (0.52-1.04) mg/dL Glucose 201 H (74-99) mg/dL POC Glucose (mg/dL) 142 H (70-110) mg/dL Assessment and Plan Assessment: Acute exacerbation of chronic COPD. The patient has severe COPD and she is oxygen dependent and she suffers from chronic hypoxic respiratory failure. Chest x-ray was reviewed and there is evidence of cardiomegaly, pulmonary vascular congestion and chronic scattered scarring and background COPD with hyp erinflation. No evidence of any airspace disease. Severe COPD maintain on a combination of Spiriva and Advair an outpatient basis and the patient uses Combivent when necessary. She is an ex-smoker and she quit smoking more than 20 years ago. Acute on chronic hypoxic respiratory failure. Typically the patient is at 3 L at home and currently she is on 4 L Acute decompensated heart failure, proBNP level is elevated along with pulmonary venous congestion. Echocardiogram revealed borderline left ventricular systolic function with ejection fraction 50%. There is severe pulmonary hypertension with an RVSP of 67 mmHg. Severe right ventricular dilatation. Moderate tricuspid regurgitation. Mild aortic stenosis. Acute kidney injury, creatinine was at 1.5 at time of admission currently at 1.80. Ultrasound reveals medical renal disease with cortical thinning. No evidence of obstructive uropathy or calculus. Chronic atrial fibrillation, anticoagulated with Eliquis Questionable history of tachybradycardia syndrome and the patient has a permanent pacemaker in place Abnormal troponin is, consider possibility of a acute non-STEMI. EKG showing a ventricular paced rhythm. The patient states that her cardiac catheterization approximately year ago was within normal limits. History of breast cancer with a previous lumpectomy and radiation therapy more than 25 years ago. History of gout Plan: The patient was seen and evaluated Echocardiogram, medications and labs reviewed Continue IV Solu-Medrol 60 mg every 6 hours Decrease Lasix to 40 mg every 12 hours Continue bronchodilators Anticoagulated with Eliquis Titrate the FiO2 as tolerated Follow-up chest x-ray in the a.m. We'll continue to follow I have personally seen and examined the patient, performed the documentation and the assessment and plan as written. Number of minutes spent on the visit: 10.
[2022-11-15 16:10] LABS: Glucose,Whole Blood 291 mg/dL (70-110)
--- NOTE | 2022-11-15 19:56 | P.PN ---
Subjective Progress Note Date: 11/15/22 The patient is a 77-year-old female who is followed by Dr. Palacio regarding her cardiac status who presents with symptoms of progressive dyspnea, cough for the last few days, worse yesterday. In the emergency room she was noted to be in atrial fibrillation and had evidence of exacerbation of COPD and CHF. She has a known history of permanent atrial fibrillation, anticoagulated, post permanent pacemaker implantation. She has underwent a cardiac catheterization according to her a year ago that showed no evidence of obstructive CAD. She has no prior history of myocardial infarction. She recalls being told that her ejection fraction is 40%. Her symptoms were getting worse over the last few days but not associated with chest pain or fever. She had wheezing and cough. She had mild peripheral edema. She has been anticoagulated. She has a history of COPD but has not smoked in over 20 years. In the emergency room her troponin were mildly elevated and her NT proBNP was elevated as well. Her coronary risk factors are positive for hypertension, her lipid profile is not available. Medications: Bumex 1 mg daily, potassium, Singulair, colchicine, Spiriva, Ventolin, Combivent, Advair, metoprolol succinate 75 mg daily,Eliquis 5 mg twice a day 11/14 Patient remains on diuretics with increasing creatinine 1.5-1.9-2.0. Awaiting 2-D echo. Nephrology was consulted and continuing IV diuretics with consideration of possibly holding metoprolol or decreasing. Was somewhat hypotensive 94/60 this morning. Lasix was increased to 40mg IV TID. 11/15 She states that her breathing is feeling better, still with cough, but wheezing improving slightly. She is on 4L NC O2. Creat 1.8. ECHO shows EF 50-55%, RVSP elevated at 67, mild aortic stenosis, moderate tricuspid regurgitation. Physical Examination: Vitals reviewed Head: Normocephalic. Eyes: Sclerae nonicteric. Neck: Good carotid upstroke, no bruit, no jugular venous distention. Lungs: Wheezes bilaterally with decreased air exchange Heart: Irreg rate and rhythm, S1-S2, no S3, no rub. Systolic ejection murmur. Abdomen: Soft nontender, positive bowel sounds Extremities: No edema, intact distal pulses. Impression: 1. Progressive dyspnea with a combination of exacerbation of COPD and CHF, suspect more related to COPD with diffuse wheeze 2. Chronic persistent atrial fibrillation, anticoagulated 3. Status post permanent pacemaker implantation 4. History of hypertension 5. Troponin elevation most likely representing type II myocardial infarction related to the COPD and CHF 6. Abnormal renal function of unknown duration 7. No evidence of high-grade CAD per patient by cardiac catheterization about a year ago Plan: Obtain prior cardiac catheterization report from [facility]. Continue with beta angelito and decreased dose if continues to have borderline blood pressures. Optimize heart failure regimen as able. Lasix currently at 40mg IV BID. Will follow. Objective - Vital Signs Vital signs: Vital Signs Temp 98.4 F 11/15/22 12:20 Pulse 69 11/15/22 17:15 Resp 18 11/15/22 17:15 BP 118/71 11/15/22 17:15 Pulse Ox 99 11/15/22 17:15 FiO2 Intake & Output 11/15/22 11/15/22 11/16/22 06:59 18:59 06:59 Intake Total 776 Output Total 700 Balance 76 Weight 80.8 kg Intake: Oral 776 Output: Urine 700 Other: Voiding Method Toilet Toilet # Voids 1 1 # Bowel Movements 1 2 - Labs CBC & Chem 7: 11/15/22 08:41 11/15/22 08:41 Labs: Abnormal Lab Results - Last 24 Hours (Table) 11/14/22 11/15/22 11/15/22 Range/Units 20:22 06:06 08:41 WBC 12.6 H (3.8-10.6) k/uL RBC 3.67 L (3.80-5.40) m/uL Hgb 10.7 L (11.4-16.0) gm/dL Neutrophils # 11.7 H (1.3-7.7) k/uL Lymphocytes # 0.4 L (1.0-4.8) k/uL Chloride (98-107) mmol/L Carbon Dioxide (22-30) mmol/L BUN (7-17) mg/dL Creatinine (0.52-1.04) mg/dL Glucose (74-99) mg/dL POC Glucose (mg/dL) 309 H 128 H (70-110) mg/dL 11/15/22 11/15/22 11/15/22 Range/Units 08:41 11:38 16:08 WBC (3.8-10.6) k/uL RBC (3.80-5.40) m/uL Hgb (11.4-16.0) gm/dL Neutrophils # (1.3-7.7) k/uL Lymphocytes # (1.0-4.8) k/uL Chloride 95 L (98-107) mmol/L Carbon Dioxide 37 H (22-30) mmol/L BUN 81 H (7-17) mg/dL Creatinine 1.80 H (0.52-1.04) mg/dL Glucose 201 H (74-99) mg/dL POC Glucose (mg/dL) 142 H 291 H (70-110) mg/dL
[2022-11-15 20:14] LABS: Glucose,Whole Blood 223 mg/dL (70-110)
[2022-11-15] MEDS: LORATADINE 10 MG TAB PO SCH (20:40)
[2022-11-15] MEDS: METOPROLOL SUCCINATE (ER) 25 MG TAB.ER.24H PO SCH (20:40)
[2022-11-15] MEDS: MONTELUKAST 10 MG TAB PO SCH (20:45)
[2022-11-16] MEDS: IPRATROPIUM-ALBUTEROL 3 ML NEB INHALATION PRN ×4 (00:51→15:45)
--- NOTE | 2022-11-16 05:54 | P.PN ---
Subjective Progress Note Date: 11/15/22 This is a pleasant 77 years old female with past medical history of Atrial Fibrillation, Asthma, Heart Failure, COPD, GERD/Reflux Presents because of dyspnea and shortness of breath of 1 week duration a ssociated with cough more than one month sometimes with yellow phlegm Patient denies chest pain. No urinary or GI complaints, no dysuria urgency vomiting or diarrhea. No abdominal pain, no headache dizziness weakness or numbness No smoking or illicit tracts, she uses alcohol occasionally She says that she's being nitrite lately and she is being less amount. She's been treated oxygen nasal cannula at home. Vitals reviewed, patient is afebrile. Blood pressure low-normal 90/50. Blood pressure was better on admission 113/63. Patient states 22 and he is saturating 92% on 4 L oxygen via nasal cannula Labs showing mild leukocytosis of 12.9, hemoglobin 10.8. D-dimer is negative at 0.39. Creatinine elevated 1.5, unknown baseline. Electrolytes normal. Liver enzymes elevated. troponin is elevated at 0.059, 0.051, 0.047. probnp is elevated 6400. 3 virus is not detected influenza, rsv and coronavirus ekg showing irregular. Prolonged QRS, some paced rhythm rate around 81, no significant ST-T changes 11/14/2022 Patient is seen and evaluated in follow-up today with multiple medical cons ultations including cardiology and pulmonary following. Patient being treated for CHF/COPD exacerbation. Patient was continued on IV steroids along with breathing treatments and will continue. Patient also continues on IV Lasix and will continue for an additional 24 hours and follow-up with repeat labs his kidney functions are worsening. Nephrology is consulted and pending. Patient is currently afebrile continues to report some shortness of breath all feels improved from admission and asking when she is able to go home. Patient currently maintained on oxygen as well. Await PT/OT therapy evaluation 11/15/2022 Patient seen and evaluated follow-up this morning currently continued on IV steroids along with DuoNeb treatments with pulmonary following. Cardiology and nephrology following as well and kidney functions improved. Patient is maintained on IV Lasix as well and will follow-up with repeat labs. Encouraged increased activity as tolerated and continue supplemental oxygen and weaning as tolerated. Patient does chronically wear some oxygen outpatient. Patient is afebrile denies chest pain or worsening shortness of breath. Patient continues to have dyspnea with exertion and bronchospastic cough with some congestion. Patient appears somewhat improved from yesterday. Will follow-up with consultations about discharge planning. Review of systems: Constitutional: No reports of fatigue, fever, or chills Cardiovascular: No reports of chest pain or palpitations Respiratory: reports of shortness of breath with some wheezing GI: No reports of nausea, vomiting, or diarrhea : No reports of dysuria or retention Neurovascular: No reports of weakness or numbness All medications have been reviewed Active Medications Albuterol/Ipratropium (Ipratropium-Albuterol 3 Ml Neb) 3 ml INHALATION RT-QID PRN PRN Reason: Shortness Of Breath Last Admin: 11/16/22 00:51 Dose: 3 ml Allopurinol (Allopurinol 100 Mg Tab) 200 mg PO DAILY [facility] Last Admin: 11/15/22 08:03 Dose: 200 mg Apixaban (Apixaban 5 Mg Tab) 5 mg PO BID [facility]; Protocol Last Admin: 11/15/22 20:40 Dose: 5 mg Ascorbic Acid (Ascorbic Acid 500 Mg Tab) 500 mg PO DAILY [facility] Last Admin: 11/15/22 08:02 Dose: 500 mg Budesonide/Formoterol Fumarate (Symbicort 160-4.5 Mcg Inhaler) 2 puff INHALATION RT-BID [facility] Last Admin: 11/15/22 21:58 Dose: 2 puff Cholecalciferol (Cholecalciferol 25 Mcg (1000 Iu) Tablet) 75 mcg PO DAILY [facility] Last Admin: 11/15/22 08:02 Dose: 75 mcg Colchicine (Colchicine 0.6 Mg Each) 0.6 mg PO TUTH [facility] Last Admin: 11/15/22 08:03 Dose: 0.6 mg Dextrose/Water (Dextrose 50% Syringe 50 Ml) 25 ml IVP PER PROTOCOL PRN; Protocol PRN Reason: Hypoglycemia Dextrose/Water (Dextrose 50% Syringe 50 Ml) 50 ml IVP PER PROTOCOL PRN; Protocol PRN Reason: Hypoglycemia Ferrous Sulfate (Ferrous Sulfate 325 Mg Tab) 325 mg PO DAILY [facility] Last Admin: 11/15/22 08:03 Dose: 325 mg Furosemide (Furosemide 10 Mg/Ml 4 Ml Vial) 40 mg IV Q12HR [facility] Last Admin: 11/15/22 20:40 Dose: 40 mg Insulin Aspart (Insulin Aspart (Novolog) 100 Unit/Ml Vial) 0 unit SQ ACHS [facility]; Protocol Last Admin: 11/15/22 20:42 Dose: 4 unit Ipratropium [place] (Ipratropium 0.5 Mg/2.5 Ml Nebu) 0.5 mg INHALATION RT-QID [facility] Last Admin: 11/15/22 21:59 Dose: Not Given Loratadine (Loratadine 10 Mg Tab) 10 mg PO [facility] Last Admin: 11/15/22 20:40 Dose: 10 mg Magnesium Oxide (Magnesium Oxide 400 Mg Tab) 400 mg PO DAILY [facility] Last Admin: 11/15/22 08:03 Dose: 400 mg Methylprednisolone Sodium Succinate (Methylprednisolone Sod Succi 125 Mg/2 Ml Vial) 60 mg IV Q6HR [facility] Last Admin: 11/15/22 23:11 Dose: 60 mg Metoprolol Succinate (Metoprolol Succinate (Er) 25 Mg Tab.Er.24h) 75 mg PO [facility] Last Admin: 11/15/22 20:40 Dose: 75 mg Montelukast Sodium (Montelukast 10 Mg Tab) 10 mg PO [facility] Last Admin: 11/15/22 20:45 Dose: 10 mg Pantoprazole Sodium (Pantoprazole 40 Mg Tablet) 40 mg PO BID [facility] Last Admin: 11/15/22 20:40 Dose: 40 mg Potassium Chloride (Potassium Chloride Er 20 Meq Tab.Er) 20 meq PO DAILY [facility] Last Admin: 11/15/22 08:02 Dose: 20 meq Physical exam: GENERAL: The patient is alert and oriented x3, sitting up on the side of the bed. Well developed, well nourished. Obese. HEENT: Pupils are round and equally reacting to light. EOMI. No scleral icterus. No conjunctival pallor. Normocephalic, atraumatic. No pharyngeal erythema. No thyromegaly. CARDIOVASCULAR: S1 and S2 muffled PULMONARY: Diminished breath sounds bilaterally with bilateral expiratory wheezing ABDOMEN: Soft, nontender, nondistended, normoactive bowel sounds. No palpable organomegaly. MUSCULOSKELETAL: No joint swelling or deformity. EXTREMITIES: No cyanosis, clubbing, or pedal edema. NEUROLOGICAL: Gross neurological examination did not reveal any focal deficits. SKIN: No rashes. no petechiae. Assessment: Acute COPD exacerbation Possible Acute on chronic CHF exacerbation, unknown ejection fraction, elevated troponin Acute on chronic hypoxic respiratory failure, wears oxygen outpatient Acute kidney injury, improved Atrial fibrillation on blood thinner History of asthma GI and DVT prophylaxis Plan: Continue with IV Solu-Medrol and has been increased with pulmonary following to 60 mg every 6. Patient is continued on DuoNeb treatments and will continue and encouraged increased activity as tolerated Cardiology following his patient is maintained on IV Lasix and will continue and nephrology following the kidney functions improving Patient with some weakness recommend PT/OT therapy evaluation Will follow-up on repeat labs and continue to monitor closely Prognosis is guarded The impression and plan of care has been dictated by Syl Perez, Nurse Practitioner as directed. Dr. Neftali MD I have performed a history and examination and MDM of this patient, discussed the same with the dictator, and agree with the dictator's assessment and plan as written ,documented as a scribe. Based on total visit time, I have performed more than 50% of the visit. Objective - Vital Signs Vital signs: Vital Signs Temp 97.8 F 11/15/22 20:00 Pulse 72 11/16/22 01:04 Resp 18 11/16/22 00:00 BP 121/80 11/16/22 00:00 Pulse Ox 94 L 11/16/22 00:00 FiO2 Intake & Output 11/15/22 11/15/22 11/16/22 06:59 18:59 06:59 Intake Total 776 Output Total 700 800 Balance 76 -800 Weight 80.8 kg 80.6 kg Intake: Oral 776 Output: Urine 700 800 Other: Voiding Method Toilet Toilet # Voids 1 1 # Bowel Movements 1 2 - Labs CBC & Chem 7: 11/15/22 08:41 11/15/22 08:41 Labs: Abnormal Lab Results - Last 24 Hours (Table) 11/15/22 11/15/22 11/15/22 Range/Units 06:06 08:41 08:41 WBC 12.6 H (3.8-10.6) k/uL RBC 3.67 L (3.80-5.40) m/uL Hgb 10.7 L (11.4-16.0) gm/dL Neutrophils # 11.7 H (1.3-7.7) k/uL Lymphocytes # 0.4 L (1.0-4.8) k/uL Chloride 95 L (98-107) mmol/L Carbon Dioxide 37 H (22-30) mmol/L BUN 81 H (7-17) mg/dL Creatinine 1.80 H (0.52-1.04) mg/dL Glucose 201 H (74-99) mg/dL POC Glucose (mg/dL) 128 H (70-110) mg/dL 11/15/22 11/15/22 11/15/22 Range/Units 11:38 16:08 20:13 WBC (3.8-10.6) k/uL RBC (3.80-5.40) m/uL Hgb (11.4-16.0) gm/dL Neutrophils # (1.3-7.7) k/uL Lymphocytes # (1.0-4.8) k/uL Chloride (98-107) mmol/L Carbon Dioxide (22-30) mmol/L BUN (7-17) mg/dL Creatinine (0.52-1.04) mg/dL Glucose (74-99) mg/dL POC Glucose (mg/dL) 142 H 291 H 223 H (70-110) mg/dL
[2022-11-16 06:16] LABS: Glucose,Whole Blood 160 mg/dL (70-110)
[2022-11-16] MEDS: methylPREDNISolone SOD SUCCI 125 MG/2 ML VIAL IV SCH (06:39)
[2022-11-16] MEDS: INSULIN ASPART (NovoLOG) 100 UNIT/ML VIAL SQ SCH ×4 (06:41→21:05)
--- NOTE | 2022-11-16 07:10 | XR ---
EXAMINATION TYPE: XR chest 1V portable DATE OF EXAM: 11/16/2022 6:54 AM COMPARISON: Chest radiographs from 11/12/2022 TECHNIQUE: XR chest 1V portable Frontal view of the chest. CLINICAL INDICATION:Female, 77 years old with history of CHF; FINDINGS: Lungs/Pleura: Low lung volumes are present. No evidence of focal consolidation or pneumothorax. Blunt ing of the left costophrenic angle is present. Flattening of the diaphragm with increased lucency in the apices. Pulmonary vascularity: Unremarkable. Heart/mediastinum: Cardiomediastinal silhouette is enlarged and stable. Three lead cardiac conduction device overlying the left hemithorax with lead tips projecting over the right ventricle, right atriu m and coronary sinus. Musculoskeletal: No acute osseous pathology. IMPRESSION: 1. Low lung volumes with similar cardiomegaly, pulmonary vascular congestion and left pleural effusi ons. heart failure. 2. COPD changes.
[2022-11-16] MEDS: SYMBICORT 160-4.5 MCG INHALER INHALATION SCH ×2 (08:32→20:30)
[2022-11-16] MEDS: IPRATROPIUM 0.5 MG/2.5 ML NEBU INHALATION SCH ×4 (08:32→20:30)
[2022-11-16] MEDS: PANTOPRAZOLE 40 MG TABLET PO SCH ×2 (10:33→21:05)
[2022-11-16] MEDS: MAGNESIUM OXIDE 400 MG TAB PO SCH (10:33)
[2022-11-16] MEDS: allopurinoL 100 MG TAB PO SCH (10:33)
[2022-11-16] MEDS: FUROSEMIDE 10 MG/ML 4 ML VIAL IV SCH (10:34)
[2022-11-16] MEDS: POTASSIUM CHLORIDE ER 20 MEQ TAB.ER PO SCH (10:34)
[2022-11-16] MEDS: CHOLECALCIFEROL 25 MCG (1000 IU) TABLET PO SCH (10:34)
[2022-11-16] MEDS: APIXABAN 5 MG TAB PO SCH ×2 (10:34→21:05)
[2022-11-16] MEDS: ASCORBIC ACID 500 MG TAB PO SCH (10:34)
[2022-11-16] MEDS: FERROUS SULFATE 325 MG TAB PO SCH (10:34)
--- NOTE | 2022-11-16 10:47 | P.PN ---
Subjective Patient is seen for follow-up for acute kidney injury on top of chronic kidney disease. Admitted to the hospital with complaints of shortness of breath, cough, wheezing and increased weakness. Currently maintained on IV steroids for COPD exacerbation as well as diuretics for volume overload. Serum creatinine slightly improved to 1.8 from 2.2 . Labs pending from today No retention noted. Post void residual was 55 mL. Overall feeling better Objective - Vital Signs Vital signs: Vital Signs Temp 98.0 F 11/16/22 10:25 Pulse 79 11/16/22 10:25 Resp 16 11/16/22 10:25 BP 132/65 11/16/22 10:25 Pulse Ox 94 L 11/16/22 10:25 FiO2 Intake & Output 11/15/22 11/16/22 11/16/22 18:59 06:59 18:59 Intake Total 776 240 Output Total 700 800 400 Balance 76 -800 -160 Weight 80.6 kg Intake: Oral 776 240 Output: Urine 700 800 400 Other: Voiding Method Toilet Toilet # Voids 1 # Bowel Movements 2 - Exam Patient is awake, comfortable, no acute distress Alert oriented 3 Examination of the heart S1 and S2 Examination lungs shows bilateral wheezing abdomen is soft nontender Examination lower extremity shows trace edema bilaterally [employer]ATOR exam grossly intact - Labs CBC & Chem 7: 11/15/22 08:41 11/15/22 08:41 Labs: Abnormal Lab Results - Last 24 Hours (Table) 11/15/22 11/15/22 11/15/22 Range/Units 11:38 16:08 20:13 POC Glucose (mg/dL) 142 H 291 H 223 H (70-110) mg/dL 11/16/22 Range/Units 06:15 POC Glucose (mg/dL) 160 H (70-110) mg/dL Assessment and Plan Assessment: 1. Acute kidney injury nonoliguric secondary to hypotension and component of cardiorenal syndrome. Currently being diuresed. Blood pressure is better. UA is benign and ultrasound of the kidneys shows no evidence of obstruction. 2. Chronic kidney disease most likely NKF stage IV. Baseline renal function not available. Patient was seen a labor relations consultant prior to moving into the [facility] recently. Has not established with a labor relations consultant here yet. 3. CHF exacerbation currently being diuresed. Ejection fraction not available yet 4. COPD exacerbation maintained on steroids 5. History of chronic A. fib Plan: Continue current dose of IV Lasix Patient will need to follow-up as outpatient for CK D.
[2022-11-16 11:37] LABS: Glucose,Whole Blood 240 mg/dL (70-110)
--- NOTE | 2022-11-16 11:59 | P.PN ---
Subjective Progress Note Date: 11/16/22 The patient is a 77-year-old female who is followed by Dr. Palacio regarding her cardiac status who presents with symptoms of progressive dyspnea, cough for the last few days, worse yesterday. In the emergency room she was noted to be in atrial fibrillation and had evidence of exacerbation of COPD and CHF. She has a known history of permanent atrial fibrillation, anticoagulated, post permanent pacemaker implantation. She has underwent a cardiac catheterization according to her a year ago that showed no evidence of obstructive CAD. She has no prior history of myocardial infarction. She recalls being told that her ejection fraction is 40%. Her symptoms were getting worse over the last few days but not associated with chest pain or fever. She had wheezing and cough. She had mild peripheral edema. She has been anticoagulated. She has a history of COPD but has not smoked in over 20 years. In the emergency room her troponin were mildly elevated and her NT proBNP was elevated as well. Her coronary risk factors are positive for hypertension, her lipid profile is not available. Medications: Bumex 1 mg daily, potassium, Singulair, colchicine, Spiriva, Ventolin, Combivent, Advair, metoprolol succinate 75 mg daily,Eliquis 5 mg twice a day 11/14 Patient remains on diuretics with increasing creatinine 1.5-1.9-2.0. Awaiting 2-D echo. Nephrology was consulted and continuing IV diuretics with consideration of possibly holding metoprolol or decreasing. Was somewhat hypotensive 94/60 this morning. Lasix was increased to 40mg IV TID. 11/15 She states that her breathing is feeling better, still with cough, but wheezing improving slightly. She is on 4L NC O2. Creat 1.8. ECHO shows EF 50-55%, RVSP elevated at 67, mild aortic stenosis, moderate tricuspid regurgitation. 11/16 Shortness of breath is worse with walking tothe bathroom. Cough is improving. She does not feel back to her baseline. AM labs pending. Physical Examination: Vitals reviewed Head: Normocephalic. Eyes: Sclerae nonicteric. Neck: Good carotid upstroke, no bruit, no jugular venous distention. Lungs: Wheezes bilaterally with decreased air exchange Heart: Irreg rate and rhythm, S1-S2, no S3, no rub. Systolic ejection murmur. Abdomen: Soft nontender, positive bowel sounds Extremities: No edema, intact distal pulses. Impression: 1. Progressive dyspnea with a combination of exacerbation of COPD and CHF, suspect more related to COPD with diffuse wheeze 2. Chronic persistent atrial fibrillation, anticoagulated 3. Status post permanent pacemaker implantation 4. History of hypertension 5. Troponin elevation most likely representing type II myocardial infarction related to the COPD and CHF 6. Abnormal renal function of unknown duration 7. No evidence of high-grade CAD per patient by cardiac catheterization about a year ago Plan: Continue with diuresis. AM labs pending. Obtain prior cardiac catheterization report from [facility]. Continue with beta angelito and decreased dose if continues to have borderline blood pressures. Optimize heart failure regimen as able. Will follow. Objective - Vital Signs Vital signs: Vital Signs Temp 98.0 F 11/16/22 10:25 Pulse 72 11/16/22 11:51 Resp 16 11/16/22 10:25 BP 132/65 11/16/22 10:25 Pulse Ox 94 L 11/16/22 10:25 FiO2 Intake & Output 11/15/22 11/16/22 11/16/22 18:59 06:59 18:59 Intake Total 776 240 Output Total 700 800 400 Balance 76 -800 -160 Weight 80.6 kg Intake: Oral 776 240 Output: Urine 700 800 400 Other: Voiding Method Toilet Toilet # Voids 1 # Bowel Movements 2 - Labs CBC & Chem 7: 11/15/22 08:41 11/15/22 08:41 Labs: Abnormal Lab Results - Last 24 Hours (Table) 11/15/22 11/15/22 11/16/22 Range/Units 16:08 20:13 06:15 POC Glucose (mg/dL) 291 H 223 H 160 H (70-110) mg/dL 11/16/22 Range/Units 11:35 POC Glucose (mg/dL) 240 H (70-110) mg/dL
[2022-11-16 12:28] LABS: Potassium 4.4 mmol/L (3.5-5.1)
[2022-11-16] MEDS: predniSONE 20 MG TAB PO SCH (12:37)
--- NOTE | 2022-11-16 15:15 | P.PN ---
Subjective Progress Note Date: 11/16/22 77-year-old female patient, known history of COPD, nausea chronic atrial fibrillation, along with possibility of CHF. 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 In any rate, she is presenting with increasing dyspnea,, cough, chest congestion and wheezing and her symptoms got worse over the past 1 week. She was also producing some yellowish. No pleurisy. No hemoptysis. She came into the emergency she was hospitalized for an acute COPD exacerbation. She's currently on 4 L of O2 nasal cannula. At home she is oxygen dependent and she is also on 3 L O2 nasal cannula. Her blood work shows a WBC count 12.9, hemoglobin of 10.8, her troponin was 0.05 respectively and the last level was 0.04 and a proBNP level was elevated at 6400. LFTs were normal. Electrodes are normal. D-dimer was 0.39. Chest x-ray was consistent with COPD and possibly a component of CHF. The vital screening was negative including influenza A and influenza B and RSV and Covid 19. 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 She is currently on a combination of bronchodilators and steroids. She was seen by cardiology. Echocardiogram was ordered. The patient is seen today 11/14/2022 in follow-up on the selective care unit. She is currently resting fairly comfortable in bed. She is still somewhat bronchospastic and wheezy. She is maintaining O2 saturations in the 90s on 4 L/m per nasal cannula. Ultrasound of the kidneys revealed medical renal disease with cortical thinning. No evidence of obstructive uropathy or calculus. Echocardiogram is pending. She is continued on DuoNeb inhalations, Symbicort, IV Solu-Medrol. Remains on IV Lasix every 12 hours. Anticoagulated with Eliquis. Currently in a negative balance. Sodium 138. Potassium 5.0. Chloride 97. Bicarb 32. BUN 79. Creatinine 2.01. Glucose 159. The patient is seen today 11/15/2022 in follow-up on the selective care unit. She is breathing a bit easier today compared to yesterday. She is still requiri ng 4 L nasal cannula to maintain O2 saturations in the 90s. She does have oxygen at home that she is usually on 3 L. She's afebrile. Hemodynamically stable. White count 12.6. Hemoglobin 10.7. Platelets 253. Sodium 140. Potassium 4.8. Bicarb 37. BUN 81. Creatinine 1.80. Glucose 201. She is continued on DuoNeb inhalations, Symbicort, IV Solu-Medrol. Anticoagulated with Eliquis. Remains on IV diuretics. Currently in a -400 ML balance. Patient is seen today 11/16/2022 in follow-up on the selective care unit. She is currently sitting up at the bedside. Awake and alert in no acute distress. She has been slow to progress. Currently maintaining O2 saturations in the 90s on 4 L/m per nasal cannula. Afebrile. Hemodynamically stable. Follow-up chest x-ray reveals low lung volumes with similar cardiomegaly, pulmonary vascular congestion and left pleural effusions. Chronic changes of COPD. Sodium 137. Potassium 4.4. Bicarb 37. BUN 95. Creatinine 1.72. Blood sugar 240. Continued on DuoNeb inhalations, Symbicort, IV Solu-Medrol. Anticoagulated with Eliquis. Remains on IV diuretics. Currently in a -724 ML balance. Objective - Vital Signs Vital signs: Vital Signs Temp 98.0 F 11/16/22 10:25 Pulse 71 11/16/22 12:35 Resp 16 11/16/22 12:35 BP 138/80 11/16/22 12:35 Pulse Ox 96 11/16/22 12:35 FiO2 Intake & Output 11/15/22 11/16/22 11/16/22 18:59 06:59 18:59 Intake Total 776 358 Output Total 310 745 7339 Balance 73 -629 -649 Weight 80.6 kg Intake: Oral 776 358 Output: Urine 726 336 7808 Other: Voiding Method Toilet Toilet # Voids 1 # Bowel Movements 2 - Exam GENERAL EXAM: Alert, very pleasant 77-year-old female, on 4 L nasal cannula, comfortable in no apparent distress. HEAD: Normocephalic. EYES: Normal reaction of pupils, equal size. NOSE: Clear with pink turbinates. THROAT: No erythema or exudates. NECK: No masses, no JVD. CHEST: No chest wall deformity. LUNGS: Equal air entry with bilateral wheezing, few scattered rhonchi, diminished. CVS: S1 and S2 normal with no audible murmur, regular rhythm. Paced. ABDOMEN: No hepatosplenomegaly, normal bowel sounds, no guarding or rigidity. SPINE: No scoliosis or deformity SKIN: No rashes CENTRAL NERVOUS SYSTEM: No focal deficits, tone is normal in all 4 extremities. EXTREMITIES: There is no peripheral edema. No clubbing, no cyanosis. Peripheral pulses are intact. - Labs CBC & Chem 7: 11/15/22 08:41 11/16/22 11:04 Labs: Abnormal Lab Results - Last 24 Hours (Table) 11/15/22 11/15/22 11/16/22 Range/Units 16:08 20:13 06:15 Chloride (98-107) mmol/L Carbon Dioxide (22-30) mmol/L BUN (7-17) mg/dL Creatinine (0.52-1.04) mg/dL Glucose (74-99) mg/dL POC Glucose (mg/dL) 291 H 223 H 160 H (70-110) mg/dL 11/16/22 11/16/22 Range/Units 11:04 11:35 Chloride 91 L (98-107) mmol/L Carbon Dioxide 37 H (22-30) mmol/L BUN 95 H (7-17) mg/dL Creatinine 1.72 H (0.52-1.04) mg/dL Glucose 240 H (74-99) mg/dL POC Glucose (mg/dL) 240 H (70-110) mg/dL Assessment and Plan Assessment: Acute exacerbation of chronic COPD. The patient has severe COPD and she is oxygen dependent and she suffers from chronic hypoxic respiratory failure. Chest x-ray was reviewed and there is evidence of cardiomegaly, pulmonary vascular congestion and chronic scattered scarring and background COPD with hyperinflation. No evidence of any airspace disease. Severe COPD maintain on a combination of Spiriva and Advair an outpatient basis and the patient uses Combivent when necessary. She is an ex-smoker and she quit smoking more than 20 years ago. Acute on chronic hypoxic respiratory failure. Typically the patient is at 3 L at home and currently she is on 4 L Acute decompensated heart failure, proBNP level is elevated along with pulmonary venous congestion. Echocardiogram revealed borderline left ventricular systolic function with ejection fraction 50%. There is severe pulmonary hypertension with an RVSP of 67 mmHg. Severe right ventricular dilatation. Moderate tricuspid regurgitation. Mild aortic stenosis. Acute kidney injury, creatinine was at 1.5 at time of admission currently at 1.7 to. Ultrasound reveals medical renal disease with cortical thinning. No evidence of obstructive uropathy or calculus. Chronic atrial fibrillation, anticoagulated with Eliquis Questionable history of tachybradycardia syndrome and the patient has a permanent pacemaker in place Abnormal troponin is, consider possibility of a acute non-STEMI. EKG showing a ventricular paced rhythm. The patient states that her cardiac catheterization approximately year ago was within normal limits. History of breast cancer with a previous lumpectomy and radiation therapy more than 25 years ago. History of gout Plan: The patient was seen and evaluated Medications and labs reviewed Discontinue IV Solu-Medrol Initiate a prednisone taper Change IV Lasix to oral Lasix to 40 mg twice daily Continue bronchodilators Anticoagulated with Eliquis Probable discharge in the a.m. We'll continue to follow I have personally seen and examined the patient, performed the documentation and the assessment and plan as written. Number of minutes spent on the visit: 10.
[2022-11-16] MEDS: FUROSEMIDE 40 MG TAB PO SCH (15:48)
[2022-11-16 16:15] LABS: Glucose,Whole Blood 176 mg/dL (70-110)
[2022-11-16 19:56] LABS: Glucose,Whole Blood 281 mg/dL (70-110)
[2022-11-16] MEDS: LORATADINE 10 MG TAB PO SCH (21:03)
[2022-11-16] MEDS: MONTELUKAST 10 MG TAB PO SCH (21:03)
[2022-11-16] MEDS: METOPROLOL SUCCINATE (ER) 25 MG TAB.ER.24H PO SCH (21:05)
--- NOTE | 2022-11-17 05:03 | P.PN ---
Subjective Progress Note Date: 11/16/22 This is a pleasant 77 years old female with past medical history of Atrial Fibrillation, Asthma, Heart Failure, COPD, GERD/Reflux Presents because of dyspnea and shortness of breath of 1 week duration a ssociated with cough more than one month sometimes with yellow phlegm Patient denies chest pain. No urinary or GI complaints, no dysuria urgency vomiting or diarrhea. No abdominal pain, no headache dizziness weakness or numbness No smoking or illicit tracts, she uses alcohol occasionally She says that she's being nitrite lately and she is being less amount. She's been treated oxygen nasal cannula at home. Vitals reviewed, patient is afebrile. Blood pressure low-normal 90/50. Blood pressure was better on admission 113/63. Patient states 22 and he is saturating 92% on 4 L oxygen via nasal cannula Labs showing mild leukocytosis of 12.9, hemoglobin 10.8. D-dimer is negative at 0.39. Creatinine elevated 1.5, unknown baseline. Electrolytes normal. Liver enzymes elevated. troponin is elevated at 0.059, 0.051, 0.047. probnp is elevated 6400. 3 virus is not detected influenza, rsv and coronavirus ekg showing irregular. Prolonged QRS, some paced rhythm rate around 81, no significant ST-T changes 11/14/2022 Patient is seen and evaluated in follow-up today with multiple medical cons ultations including cardiology and pulmonary following. Patient being treated for CHF/COPD exacerbation. Patient was continued on IV steroids along with breathing treatments and will continue. Patient also continues on IV Lasix and will continue for an additional 24 hours and follow-up with repeat labs his kidney functions are worsening. Nephrology is consulted and pending. Patient is currently afebrile continues to report some shortness of breath all feels improved from admission and asking when she is able to go home. Patient currently maintained on oxygen as well. Await PT/OT therapy evaluation 11/15/2022 Patient seen and evaluated follow-up this morning currently continued on IV steroids along with DuoNeb treatments with pulmonary following. Cardiology and nephrology following as well and kidney functions improved. Patient is maintained on IV Lasix as well and will follow-up with repeat labs. Encouraged increased activity as tolerated and continue supplemental oxygen and weaning as tolerated. Patient does chronically wear some oxygen outpatient. Patient is afebrile denies chest pain or worsening shortness of breath. Patient continues to have dyspnea with exertion and bronchospastic cough with some congestion. Patient appears somewhat improved from yesterday. Will follow-up with consultations about discharge planning. 11/16/2022 Patient is seen and evaluated in follow-up this morning with cardiology, pulmonary, and nephrology following. Patient has been transitioned to oral prednisone and will continue with breathing treatments. Patient is maintained on 3 L via NC which she wears at home. Patient has been transitioned to oral lasix 40mg bid and nephrology following and will need outpatient follow up for ckd. Encouraged increased activity as tolerated. Patient is afebrile and denies chest pain or palpitations. Patient continues to report shortness of breath with exertion. No reports of nausea or vomiting and tolerating diet. Review of systems: Constitutional: No reports of fatigue, fever, or chills Cardiovascular: No reports of chest pain or palpitations Respiratory: reports of shortness of breath with some wheezing and exertion with walking GI: No reports of nausea, vomiting, or diarrhea : No reports of dysuria or retention Neurovascular: No reports of weakness or numbness All medications have been reviewed Active Medications Albuterol/Ipratropium (Ipratropium-Albuterol 3 Ml Neb) 3 ml INHALATION RT-QID PRN PRN Reason: Shortness Of Breath Last Admin: 11/16/22 11:39 Dose: 3 ml Allopurinol (Allopurinol 100 Mg Tab) 200 mg PO DAILY [facility] Last Admin: 11/16/22 10:33 Dose: 200 mg Apixaban (Apixaban 5 Mg Tab) 5 mg PO BID [facility]; Protocol Last Admin: 11/16/22 10:34 Dose: 5 mg Ascorbic Acid (Ascorbic Acid 500 Mg Tab) 500 mg PO DAILY [facility] Last Admin: 11/16/22 10:34 Dose: 500 mg Budesonide/Formoterol Fumarate (Symbicort 160-4.5 Mcg Inhaler) 2 puff INHALATION RT-BID [facility] Last Admin: 11/16/22 08:32 Dose: 2 puff Cholecalciferol (Cholecalciferol 25 Mcg (1000 Iu) Tablet) 75 mcg PO DAILY [facility] Last Admin: 11/16/22 10:34 Dose: 75 mcg Colchicine (Colchicine 0.6 Mg Each) 0.6 mg PO TUTH [facility] Last Admin: 11/15/22 08:03 Dose: 0.6 mg Dextrose/Water (Dextrose 50% Syringe 50 Ml) 25 ml IVP PER PROTOCOL PRN; Protocol PRN Reason: Hypoglycemia Dextrose/Water (Dextrose 50% Syringe 50 Ml) 50 ml IVP PER PROTOCOL PRN; Protocol PRN Reason: Hypoglycemia Ferrous Sulfate (Ferrous Sulfate 325 Mg Tab) 325 mg PO DAILY [facility] Last Admin: 11/16/22 10:34 Dose: 325 mg Furosemide (Furosemide 40 Mg Tab) 40 mg PO BID@0900,1600 [facility] Insulin Aspart (Insulin Aspart (Novolog) 100 Unit/Ml Vial) 0 unit SQ ACHS [facility]; Protocol Last Admin: 11/16/22 12:38 Dose: 4 unit Ipratropium [place] (Ipratropium 0.5 Mg/2.5 Ml Nebu) 0.5 mg INHALATION RT-QID [facility] Last Admin: 11/16/22 11:39 Dose: Not Given Loratadine (Loratadine 10 Mg Tab) 10 mg PO [facility] Last Admin: 11/15/22 20:40 Dose: 10 mg Magnesium Oxide (Magnesium Oxide 400 Mg Tab) 400 mg PO DAILY [facility] Last Admin: 11/16/22 10:33 Dose: 400 mg Metoprolol Succinate (Metoprolol Succinate (Er) 25 Mg Tab.Er.24h) 75 mg PO [facility] Last Admin: 11/15/22 20:40 Dose: 75 mg Montelukast Sodium (Montelukast 10 Mg Tab) 10 mg PO HS [facility] Last Admin: 11/15/22 20:45 Dose: 10 mg Pantoprazole Sodium (Pantoprazole 40 Mg Tablet) 40 mg PO BID [facility] Last Admin: 11/16/22 10:33 Dose: 40 mg Potassium Chloride (Potassium Chloride Er 20 Meq Tab.Er) 20 meq PO DAILY [facility] Last Admin: 11/16/22 10:34 Dose: 20 meq Prednisone (Prednisone 20 Mg Tab) 40 mg PO DAILY [facility] Last Admin: 11/16/22 12:37 Dose: 40 mg Physical exam: GENERAL: The patient is alert and oriented x3, sitting up on the side of the bed. Well developed, well nourished. Obese. HEENT: Pupils are round and equally reacting to light. EOMI. No scleral icterus. No conjunctival pallor. Normocephalic, atraumatic. No pharyngeal erythema. No thyromegaly. CARDIOVASCULAR: S1 and S2 muffled PULMONARY: Diminished breath sounds bilaterally with bilateral expiratory wheezing ABDOMEN: Soft, nontender, nondistended, normoactive bowel sounds. No palpable organomegaly. MUSCULOSKELETAL: No joint swelling or deformity. EXTREMITIES: No cyanosis, clubbing, or pedal edema. NEUROLOGICAL: Gross neurological examination did not reveal any focal deficits. SKIN: No rashes. no petechiae. Assessment: Acute COPD exacerbation Acute on chronic CHF exacerbation, unknown ejection fraction, elevated troponin Acute on chronic hypoxic respiratory failure, wears oxygen outpatient Acute kidney injury, improved Atrial fibrillation on blood thinner History of asthma GI and DVT prophylaxis Plan: Continue with now oral Lasix and has been transitioned oral prednisone with cardiology and pulmonary following. Patient is continued on DuoNeb treatments and will continue and encouraged increased activity as tolerated Patient reports she continues to have shortness of breath with exertion while walking to the bathroom and is maintained on her 3 L of oxygen via nasal cannula patient wears outpatient Nephrology following as well and will need outpatient follow up for ckd Patient with some weakness recommend increased activity as tolerated Will continue to monitor closely with possible discharge in 24 hours Prognosis is guarded The impression and plan of care has been dictated by Syl Perez, Nurse Practitioner as directed. Dr. Neftali MD I have performed a history and examination and MDM of this patient, discussed the same with the dictator, and agree with the dictator's assessment and plan as written ,documented as a scribe. Based on total visit time, I have performed more than 50% of the visit. Objective - Vital Signs Vital signs: Vital Signs Temp 98.0 F 11/16/22 10:25 Pulse 71 11/16/22 12:35 Resp 16 11/16/22 12:35 BP 138/80 11/16/22 12:35 Pulse Ox 96 11/16/22 12:35 FiO2 Intake & Output 11/15/22 11/16/22 11/16/22 18:59 06:59 18:59 Intake Total 776 358 Output Total 700 800 400 Balance 76 -800 -42 Weight 80.6 kg Intake: Oral 776 358 Output: Urine 700 800 400 Other: Voiding Method Toilet Toilet # Voids 1 # Bowel Movements 2 - Labs CBC & Chem 7: 11/15/22 08:41 11/16/22 11:04 Labs: Abnormal Lab Results - Last 24 Hours (Table) 11/15/22 11/15/22 11/16/22 Range/Units 16:08 20:13 06:15 Chloride (98-107) mmol/L Carbon Dioxide (22-30) mmol/L BUN (7-17) mg/dL Creatinine (0.52-1.04) mg/dL Glucose (74-99) mg/dL POC Glucose (mg/dL) 291 H 223 H 160 H (70-110) mg/dL 11/16/22 11/16/22 Range/Units 11:04 11:35 Chloride 91 L (98-107) mmol/L Carbon Dioxide 37 H (22-30) mmol/L BUN 95 H (7-17) mg/dL Creatinine 1.72 H (0.52-1.04) mg/dL Glucose 240 H (74-99) mg/dL POC Glucose (mg/dL) 240 H (70-110) mg/dL
[2022-11-17 06:05] LABS: Glucose,Whole Blood 114 mg/dL (70-110)
[2022-11-17] MEDS: INSULIN ASPART (NovoLOG) 100 UNIT/ML VIAL SQ SCH ×4 (06:17→20:55)
[2022-11-17] MEDS: IPRATROPIUM 0.5 MG/2.5 ML NEBU INHALATION SCH ×4 (08:26→19:40)
[2022-11-17] MEDS: IPRATROPIUM-ALBUTEROL 3 ML NEB INHALATION PRN ×4 (08:26→19:40)
[2022-11-17] MEDS: SYMBICORT 160-4.5 MCG INHALER INHALATION SCH ×2 (08:26→19:40)
[2022-11-17] MEDS: allopurinoL 100 MG TAB PO SCH (08:57)
[2022-11-17] MEDS: COLCHICINE 0.6 MG EACH PO SCH (08:57)
[2022-11-17] MEDS: CHOLECALCIFEROL 25 MCG (1000 IU) TABLET PO SCH (08:57)
[2022-11-17] MEDS: MAGNESIUM OXIDE 400 MG TAB PO SCH (08:58)
[2022-11-17] MEDS: ASCORBIC ACID 500 MG TAB PO SCH (08:58)
[2022-11-17] MEDS: FUROSEMIDE 40 MG TAB PO SCH ×2 (08:58→17:11)
[2022-11-17] MEDS: predniSONE 20 MG TAB PO SCH (08:58)
[2022-11-17] MEDS: POTASSIUM CHLORIDE ER 20 MEQ TAB.ER PO SCH (08:58)
[2022-11-17] MEDS: PANTOPRAZOLE 40 MG TABLET PO SCH ×2 (08:58→20:55)
[2022-11-17] MEDS: FERROUS SULFATE 325 MG TAB PO SCH (08:58)
[2022-11-17] MEDS: APIXABAN 5 MG TAB PO SCH ×2 (08:58→20:55)
[2022-11-17 09:15] LABS: Calcium 9.2 mg/dL (8.4-10.2); Magnesium 2.4 mg/dL (1.6-2.3); Potassium 4.2 mmol/L (3.5-5.1)
--- NOTE | 2022-11-17 10:51 | P.PN ---
Subjective Patient is seen for follow-up for acute kidney injury on top of chronic kidney disease. Admitted to the hospital with complaints of shortness of breath, cough, wheezing and increased weakness. Currently maintained on IV steroids for COPD exacerbation as well as diuretics for volume overload. Serum creatinine slightly improved to 1.8 from 2.2 . Labs pending from today No retention noted. Post void residual was 55 mL. Patient states that she is still quite short of breath even on walking to the bathroom. She is still coughing. Renal function has improved and currently fairly stable with creatinine at 1.7 mg/dL. Objective - Vital Signs Vital signs: Vital Signs Temp 97.7 F 11/17/22 08:00 Pulse 84 11/17/22 08:39 Resp 18 11/17/22 08:39 BP 118/69 11/17/22 08:00 Pulse Ox 95 11/17/22 08:26 FiO2 Intake & Output 11/16/22 11/17/22 11/17/22 18:59 06:59 18:59 Intake Total 898 Output Total 1000 600 300 Balance -102 -600 -300 Weight 80.8 kg Intake: Oral 898 Output: Urine 1000 600 300 Other: Voiding Method Toilet # Voids 1 # Bowel Movements 1 - Exam Patient is awake, comfortable, no acute distress Alert oriented 3 Examination of the heart S1 and S2 Examination lungs shows bilateral wheezing abdomen is soft nontender Examination lower extremity shows trace edema bilaterally [employer]OR exam grossly intact - Labs CBC & Chem 7: 11/15/22 08:41 11/17/22 07:18 Labs: Abnormal Lab Results - Last 24 Hours (Table) 11/16/22 11/16/22 11/16/22 Range/Units 11:04 11:35 16:14 Chloride 91 L (98-107) mmol/L Carbon Dioxide 37 H (22-30) mmol/L BUN 95 H (7-17) mg/dL Creatinine 1.72 H (0.52-1.04) mg/dL Glucose 240 H (74-99) mg/dL POC Glucose (mg/dL) 240 H 176 H (70-110) mg/dL Magnesium (1.6-2.3) mg/dL 11/16/22 11/17/22 11/17/22 Range/Units 19:55 06:05 07:18 Chloride 95 L (98-107) mmol/L Carbon Dioxide 39 H (22-30) mmol/L BUN 93 H (7-17) mg/dL Creatinine 1.77 H (0.52-1.04) mg/dL Glucose 127 H (74-99) mg/dL POC Glucose (mg/dL) 281 H 114 H (70-110) mg/dL Magnesium 2.4 H (1.6-2.3) mg/dL Assessment and Plan Assessment: 1. Acute kidney injury nonoliguric secondary to hypotension and component of cardiorenal syndrome. Currently being diuresed. Blood pressure is better. UA is benign and ultrasound of the kidneys shows no evidence of obstruction. 2. Chronic kidney disease most likely NKF stage IV. Baseline renal function not available. Patient was seen a software developer prior to moving into the [facility] recently. Has not established with a software developer here yet. 3. CHF exacerbation currently being diuresed. Preserved ejection fraction with severe pulmonary hypertension 4. COPD exacerbation maintained on steroids 5. History of chronic A. fib Plan: Lasix has been changed to oral this morning. Steroids as per pulmonology Patient will need to follow-up as outpatient for CK D.
[2022-11-17 11:27] LABS: Glucose,Whole Blood 105 mg/dL (70-110)
--- NOTE | 2022-11-17 12:30 | XR ---
EXAMINATION TYPE: XR chest 1V portable DATE OF EXAM: 11/17/2022 HISTORY: Shortness of breath. COMPARISON: 11/16/2022 TECHNIQUE: Single view of the chest is submitted. FINDINGS: Demonstrated are scattered senescent parenchymal change. There is cardiomegaly with scattered infiltrates and/or atelectasis. No significant change appreciate d. Hilar and mediastinal structures are within normal limits. Degenerative changes are seen of the dorsal spine. IMPRESSION: 1. There is cardiomegaly with scattered infiltrates and/or atelectasis. No significant change apprec iated.
--- NOTE | 2022-11-17 13:38 | P.PN ---
Subjective Progress Note Date: 11/17/22 Principal diagnosis: Acute exacerbation of COPD, acute on chronic hypoxic respiratory failure 77-year-old female patient, known history of COPD, nausea chronic atrial fibrillation, along with possibility of CHF. 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 In any rate, she is presenting with increasing dyspnea,, cough, chest congestion and wheezing and her symptoms got worse over the past 1 week. She was also producing some yellowish. No pleurisy. No hemoptysis. She came into the emergency she was hospitalized for an acute COPD exacerbation. She's currently on 4 L of O2 nasal cannula. At home she is oxygen dependent and she is also on 3 L O2 nasal cannula. Her blood work shows a WBC count 12.9, hemoglobin of 10.8, her troponin was 0.05 respectively and the last level was 0.04 and a proBNP level was elevated at 6400. LFTs were normal. Electrodes are normal. D-dimer was 0.39. Chest x-ray was consistent with COPD and possibly a component of CHF. The vital screening was negative including influenza A and influenza B and RSV and Covid 19. 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 She is currently on a combination of bronchodilators and steroids. She was seen by cardiology. Echocardiogram was ordered. The patient is seen today 11/14/2022 in follow-up on the selective care unit. She is currently resting fairly comfortable in bed. She is still somewhat bronchospastic and wheezy. She is maintaining O2 saturations in the 90s on 4 L/m per nasal cannula. Ultrasound of the kidneys revealed medical renal disease with cortical thinning. No evidence of obstructive uropathy or calculus. Echocardiogram is pending. She is continued on DuoNeb inhalations, Symbicort, IV Solu-Medrol. Remains on IV Lasix every 12 hours. Anticoagulated with Eliquis. Currently in a negative balance. Sodium 138. Potassium 5.0. Chlor su 97. Bicarb 32. BUN 79. Creatinine 2.01. Glucose 159. The patient is seen today 11/15/2022 in follow-up on the selective care unit. She is breathing a bit easier today compared to yesterday. She is still requiring 4 L nasal cannula to maintain O2 saturations in the 90s. She does have oxygen at home that she is usually on 3 L. She's afebrile. Hemodynamically stable. White count 12.6. Hemoglobin 10.7. Platelets 253. Sodium 140. Potassium 4.8. Bicarb 37. BUN 81. Creatinine 1.80. Glucose 201. She is continued on DuoNeb inhalations, Symbicort, IV Solu-Medrol. Anticoagulated with Eliquis. Remains on IV diuretics. Currently in a -400 ML balance. Patient is seen today 11/16/2022 in follow-up on the selective care unit. She is currently sitting up at the bedside. Awake and alert in no acute distress. She has been slow to progress. Currently maintaining O2 saturations in the 90s on 4 L/m per nasal cannula. Afebrile. Hemodynamically stable. Follow-up chest x-ray reveals low lung volumes with similar cardiomegaly, pulmonary vascular congestion and left pleural effusions. Chronic changes of COPD. Sodium 137. Potassium 4.4. Bicarb 37. BUN 95. Creatinine 1.72. Blood sugar 240. Continued on DuoNeb inhalations, Symbicort, IV Solu-Medrol. Anticoagulated with Eliquis. Remains on IV diuretics. Currently in a -724 ML balance. Patient was reevaluated today on 11/17/2022, remains on the selective care unit, does not seem to be in distress, however the patient is feeling a bit worse today, is having more shortness of breath, intermittent cough and wheezing. Yesterday she was doing much better than today, the only change was the fact that the patient was transitioned from Solu-Medrol to oral prednisone this morning. Continues to respond well to diuretics, the dose of Lasix was decreased to 40 mg by mouth twice a day. Patient remains on her bronch odilators, Remains on prednisone at 40 mg by mouth daily. Obviously she is not quite ready to be discharged home today. Basic metabolic profile is normal BUN is 93 creatinine 1.77, not much of a change of her creatinine in the last few days Objective - Vital Signs Vital signs: Vital Signs Temp 97.5 F L 11/17/22 11:51 Pulse 70 11/17/22 11:51 Resp 16 11/17/22 11:51 BP 122/78 04/27/23 11:51 Pulse Ox 95 11/17/22 11:51 FiO2 Intake & Output 11/16/22 11/17/22 11/17/22 18:59 06:59 18:59 Intake Total 898 Output Total 1000 600 300 Balance -102 -600 -300 Weight 80.8 kg Intake: Oral 898 Output: Urine 1000 600 300 Other: Voiding Method Toilet Toilet # Voids 1 # Bowel Movements 1 - Exam Physical Exam: Revealed 77-year-old female in no distress on 4 L nasal cannula Head: Atraumatic normocephalic. HEENT:[Neck is supple.] [No neck masses.] [No thyromegaly.] [No JVD.] Chest: [Rhonchi and wheezes noted bilaterally more so on forced expiratory maneuver. Cardiac Exam: [Normal S1 and S2, no S3 gallop, no murmur.] Abdomen: [Soft, nontender, no megaly, no rebound, no guarding, normal bowel sounds.] Extremities: [No clubbing, no edema, no cyanosis.] Neurological Exam: [No focal neurologic deficit.] Alert oriented 3. Psychiatric: Normal mood affect and normal mental status. Skin: No rashes. Musculoskeletal: No deformities and no limitation in range of motion - Labs CBC & Chem 7: 11/15/22 08:41 11/17/22 07:18 Labs: Abnormal Lab Results - Last 24 Hours (Table) 11/16/22 11/16/22 11/17/22 Range/Units 16:14 19:55 06:05 Chloride (98-107) mmol/L Carbon Dioxide (22-30) mmol/L BUN (7-17) mg/dL Creatinine (0.52-1.04) mg/dL Glucose (74-99) mg/dL POC Glucose (mg/dL) 176 H 281 H 114 H (70-110) mg/dL Magnesium (1.6-2.3) mg/dL 11/17/22 Range/Units 07:18 Chloride 95 L (98-107) mmol/L Carbon Dioxide 39 H (22-30) mmol/L BUN 93 H (7-17) mg/dL Creatinine 1.77 H (0.52-1.04) mg/dL Glucose 127 H (74-99) mg/dL POC Glucose (mg/dL) (70-110) mg/dL Magnesium 2.4 H (1.6-2.3) mg/dL Assessment and Plan Assessment: Impression: Acute on chronic hypoxic respiratory failure Acute exacerbation of COPD Severe underlying COPD Ex-smoker Acute diastolic congestive heart failure Severe pulmonary hypertension Mild aortic stenosis Chronic atrial fibrillation, maintained on eliquis and beta blockers Acute on chronic kidney disease History of breast cancer and previous lumpectomy followed by radiation therapy more than 25 years ago. History of gout. Recommendation: Continue oxygen Continue bronchodilators Continue steroids/prednisone Continue diuretics Continue beta blockers, and eliquis Hold on discharge planning Not ready for discharge. Continue to monitor electrolytes and renal status We will continue to follow Time with Patient: Less than 30
[2022-11-17 16:25] LABS: Glucose,Whole Blood 164 mg/dL (70-110)
--- NOTE | 2022-11-17 19:05 | P.PN ---
Subjective Progress Note Date: 11/17/22 The patient is a 77-year-old female who is followed by Dr. Palacio regarding her cardiac status who presents with symptoms of progressive dyspnea, cough for the last few days, worse yesterday. In the emergency room she was noted to be in atrial fibrillation and had evidence of exacerbation of COPD and CHF. She has a known history of permanent atrial fibrillation, anticoagulated, post permanent pacemaker implantation. She has underwent a cardiac catheterization according to her a year ago that showed no evidence of obstructive CAD. She has no prior history of myocardial infarction. She recalls being told that her ejection fraction is 40%. Her symptoms were getting worse over the last few days but not associated with chest pain or fever. She had wheezing and cough. She had mild peripheral edema. She has been anticoagulated. She has a history of COPD but has not smoked in over 20 years. In the emergency room her troponin were mildly elevated and her NT proBNP was elevated as well. Her coronary risk factors are positive for hypertension, her lipid profile is not available. Medications: Bumex 1 mg daily, potassium, Singulair, colchicine, Spiriva, Ventolin, Combivent, Advair, metoprolol succinate 75 mg daily,Eliquis 5 mg twice a day 11/14 Patient remains on diuretics with increasing creatinine 1.5-1.9-2.0. Awaiting 2-D echo. Nephrology was consulted and continuing IV diuretics with consideration of possibly holding metoprolol or decreasing. Was somewhat hypotensive 94/60 this morning. Lasix was increased to 40mg IV TID. 11/15 She states that her breathing is feeling better, still with cough, but wheezing improving slightly. She is on 4L NC O2. Creat 1.8. ECHO shows EF 50-55%, RVSP elevated at 67, mild aortic stenosis, moderate tricuspid regurgitation. 11/16 Shortness of breath is worse with walking to the bathroom. Cough is improving. She does not feel back to her baseline. AM labs pending. 11/17 She reports breathing is a little worse today. She is coughing up green sputum. Denies any chest pain. Creat stable at 1.77. Lasix was changed to oral. Physical Examination: Vitals reviewed Head: Normocephalic. Eyes: Sclerae nonicteric. Neck: Good carotid upstroke, no bruit, no jugular venous distention. Lungs: Wheezes bilaterally with decreased air exchange Heart: Irreg rate and rhythm, S1-S2, no S3, no rub. Systolic ejection murmur. Abdomen: Soft nontender, positive bowel sounds Extremities: No edema, intact distal pulses. Impression: 1. Progressive dyspnea with a combination of exacerbation of COPD and CHF, suspect more related to COPD with diffuse wheeze 2. Chronic persistent atrial fibrillation, anticoagulated 3. Status post permanent pacemaker implantation 4. History of hypertension 5. Troponin elevation most likely representing type II myocardial infarction related to the COPD and CHF 6. Abnormal renal function of unknown duration 7. No evidence of high-grade CAD per patient by cardiac catheterization about a year ago Plan: Continue with lasix 40mg po BID. Continue with beta angelito. Optimize heart failure regimen as able. Will follow. Objective - Vital Signs Vital signs: Vital Signs Temp 97.7 F 11/17/22 16:00 Pulse 77 11/17/22 16:02 Resp 18 11/17/22 16:02 BP 113/73 11/17/22 16:00 Pulse Ox 93 L 11/17/22 16:00 FiO2 Intake & Output 11/17/22 11/17/22 11/18/22 06:59 18:59 06:59 Output Total 600 300 Balance -600 -300 Weight 80.8 kg Output: Urine 600 300 Other: Voiding Method Toilet # Voids 1 # Bowel Movements 1 - Labs CBC & Chem 7: 11/15/22 08:41 11/17/22 07:18 Labs: Abnormal Lab Results - Last 24 Hours (Table) 11/16/22 11/17/22 11/17/22 Range/Units 19:55 06:05 07:18 Chloride 95 L (98-107) mmol/L Carbon Dioxide 39 H (22-30) mmol/L BUN 93 H (7-17) mg/dL Creatinine 1.77 H (0.52-1.04) mg/dL Glucose 127 H (74-99) mg/dL POC Glucose (mg/dL) 281 H 114 H (70-110) mg/dL Magnesium 2.4 H (1.6-2.3) mg/dL 11/17/22 Range/Units 16:23 Chloride (98-107) mmol/L Carbon Dioxide (22-30) mmol/L BUN (7-17) mg/dL Creatinine (0.52-1.04) mg/dL Glucose (74-99) mg/dL POC Glucose (mg/dL) 164 H (70-110) mg/dL Magnesium (1.6-2.3) mg/dL
[2022-11-17 20:15] LABS: Glucose,Whole Blood 267 mg/dL (70-110)
[2022-11-17] MEDS: LORATADINE 10 MG TAB PO SCH (20:55)
[2022-11-17] MEDS: MONTELUKAST 10 MG TAB PO SCH (20:55)
[2022-11-17] MEDS: METOPROLOL SUCCINATE (ER) 25 MG TAB.ER.24H PO SCH (20:55)
--- NOTE | 2022-11-18 05:08 | P.PN ---
Subjective Progress Note Date: 11/17/22 This is a pleasant 77 years old female with past medical history of Atrial Fibrillation, Asthma, Heart Failure, COPD, GERD/Reflux Presents because of dyspnea and shortness of breath of 1 week duration a ssociated with cough more than one month sometimes with yellow phlegm Patient denies chest pain. No urinary or GI complaints, no dysuria urgency vomiting or diarrhea. No abdominal pain, no headache dizziness weakness or numbness No smoking or illicit tracts, she uses alcohol occasionally She says that she's being nitrite lately and she is being less amount. She's been treated oxygen nasal cannula at home. Vitals reviewed, patient is afebrile. Blood pressure low-normal 90/50. Blood pressure was better on admission 113/63. Patient states 22 and he is saturating 92% on 4 L oxygen via nasal cannula Labs showing mild leukocytosis of 12.9, hemoglobin 10.8. D-dimer is negative at 0.39. Creatinine elevated 1.5, unknown baseline. Electrolytes normal. Liver enzymes elevated. troponin is elevated at 0.059, 0.051, 0.047. probnp is elevated 6400. 3 virus is not detected influenza, rsv and coronavirus ekg showing irregular. Prolonged QRS, some paced rhythm rate around 81, no significant ST-T changes 11/14/2022 Patient is seen and evaluated in follow-up today with multiple medical cons ultations including cardiology and pulmonary following. Patient being treated for CHF/COPD exacerbation. Patient was continued on IV steroids along with breathing treatments and will continue. Patient also continues on IV Lasix and will continue for an additional 24 hours and follow-up with repeat labs his kidney functions are worsening. Nephrology is consulted and pending. Patient is currently afebrile continues to report some shortness of breath all feels improved from admission and asking when she is able to go home. Patient currently maintained on oxygen as well. Await PT/OT therapy evaluation 11/15/2022 Patient seen and evaluated follow-up this morning currently continued on IV steroids along with DuoNeb treatments with pulmonary following. Cardiology and nephrology following as well and kidney functions improved. Patient is maintained on IV Lasix as well and will follow-up with repeat labs. Encouraged increased activity as tolerated and continue supplemental oxygen and weaning as tolerated. Patient does chronically wear some oxygen outpatient. Patient is afebrile denies chest pain or worsening shortness of breath. Patient continues to have dyspnea with exertion and bronchospastic cough with some congestion. Patient appears somewhat improved from yesterday. Will follow-up with consultations about discharge planning. 11/16/2022 Patient is seen and evaluated in follow-up this morning with cardiology, pulmonary, and nephrology following. Patient has been transitioned to oral prednisone and will continue with breathing treatments. Patient is maintained on 3 L via NC which she wears at home. Patient has been transitioned to oral lasix 40mg bid and nephrology following and will need outpatient follow up for ckd. Encouraged increased activity as tolerated. Patient is afebrile and denies chest pain or palpitations. Patient continues to report shortness of breath with exertion. No reports of nausea or vomiting and tolerating diet. 11/17/2022 Patient is seen and evaluated follow-up this morning with pulmonary and cardiology are following. Patient is maintained on oral Lasix was on breathing treatments. Patient reports continued shortness of breath with wheezing and increased shortness of breath with exertion. Per pulmonary patient is not quite ready for discharge given her respiratory status recommend monitoring for clinical improvement. Encouraged increase activity as tolerated. We'll provide incentive spirometer and obtain chest x-ray. Kidney functions elevated total stable and will continue current regimen. Patient is afebrile denies chest pain or palpitations. No reports of nausea or vomiting and patient tolerating diet. Review of systems: Constitutional: No reports of fatigue, fever, or chills Cardiovascular: No reports of chest pain or palpitations Respiratory: reports of shortness of breath with some wheezing and exertion with walking GI: No reports of nausea, vomiting, or diarrhea : No reports of dysuria or retention Neurovascular: No reports of weakness or numbness All medications have been reviewed Physical exam: GENERAL: The patient is alert and oriented x3, sitting up in the bed. Well developed, well nourished. Obese. HEENT: Pupils are round and equally reacting to light. EOMI. No scleral icterus. No conjunctival pallor. Normocephalic, atraumatic. No pharyngeal erythema. No thyromegaly. CARDIOVASCULAR: S1 and S2 muffled PULMONARY: Diminished breath sounds bilaterally with bilateral expiratory wheezing ABDOMEN: Soft, nontender, nondistended, normoactive bowel sounds. No palpable organomegaly. MUSCULOSKELETAL: No joint swelling or deformity. EXTREMITIES: No cyanosis, clubbing, or pedal edema. NEUROLOGICAL: Gross neurological examination did not reveal any focal deficits. SKIN: No rashes. no petechiae. Assessment: Acute COPD exacerbation Acute on chronic CHF exacerbation, unknown ejection fraction, elevated troponin Acute on chronic hypoxic respiratory failure, wears oxygen outpatient Acute kidney injury, improved Atrial fibrillation on blood thinner History of asthma GI and DVT prophylaxis Plan: Continue with current medications with cardiology and pulmonary following. Patient is continued on DuoNeb treatments and will continue and encouraged increased activity as tolerated Patient reports she continues to have shortness of breath with exertion while walking to the bathroom and is maintained on her 3 L of oxygen via nasal cannula patient wears outpatient. Encouraged to increase activity as tolerated Nephrology following as well and will need outpatient follow up for ckd, kidney functions currently stable and maintained on oral Lasix twice daily Will continue to monitor closely with possible discharge in 24-48 hours Prognosis is guarded The impression and plan of care has been dictated by Syl Perez, Nurse Practitioner as directed. Dr. Neftali MD I have performed a history and examination and MDM of this patient, discussed the same with the dictator, and agree with the dictator's assessment and plan as written ,documented as a scribe. Based on total visit time, I have performed more than 50% of the visit. Objective - Vital Signs Vital signs: Vital Signs Temp 97.7 F 11/18/22 04:00 Pulse 72 11/18/22 04:00 Resp 16 11/18/22 04:00 BP 100/56 11/18/22 04:00 Pulse Ox 94 L 11/18/22 04:00 FiO2 Intake & Output 11/17/22 11/17/22 11/18/22 06:59 18:59 06:59 Output Total 600 300 400 Balance -600 -300 -400 Weight 80.8 kg Output: Urine 600 300 400 Other: Voiding Method Toilet Toilet # Voids 1 1 # Bowel Movements 1 - Labs CBC & Chem 7: 11/15/22 08:41 11/17/22 07:18 Labs: Abnormal Lab Results - Last 24 Hours (Table) 11/17/22 11/17/22 11/17/22 Range/Units 06:05 07:18 16:23 Chloride 95 L (98-107) mmol/L Carbon Dioxide 39 H (22-30) mmol/L BUN 93 H (7-17) mg/dL Creatinine 1.77 H (0.52-1.04) mg/dL Glucose 127 H (74-99) mg/dL POC Glucose (mg/dL) 114 H 164 H (70-110) mg/dL Magnesium 2.4 H (1.6-2.3) mg/dL 11/17/22 Range/Units 20:13 Chloride (98-107) mmol/L Carbon Dioxide (22-30) mmol/L BUN (7-17) mg/dL Creatinine (0.52-1.04) mg/dL Glucose (74-99) mg/dL POC Glucose (mg/dL) 267 H (70-110) mg/dL Magnesium (1.6-2.3) mg/dL
[2022-11-18 06:14] LABS: Glucose,Whole Blood 100 mg/dL (70-110)
[2022-11-18] MEDS: INSULIN ASPART (NovoLOG) 100 UNIT/ML VIAL SQ SCH ×4 (06:32→21:08)
[2022-11-18] MEDS: SYMBICORT 160-4.5 MCG INHALER INHALATION SCH ×2 (08:25→21:32)
[2022-11-18] MEDS: IPRATROPIUM 0.5 MG/2.5 ML NEBU INHALATION SCH ×4 (08:26→21:32)
[2022-11-18] MEDS: IPRATROPIUM-ALBUTEROL 3 ML NEB INHALATION PRN ×4 (08:26→23:07)
[2022-11-18 09:00] VITALS: RESP 18
[2022-11-18] MEDS: CHOLECALCIFEROL 25 MCG (1000 IU) TABLET PO SCH (09:00)
[2022-11-18] MEDS: FERROUS SULFATE 325 MG TAB PO SCH (09:00)
[2022-11-18] MEDS: predniSONE 20 MG TAB PO SCH (09:00)
[2022-11-18] MEDS: APIXABAN 5 MG TAB PO SCH ×2 (09:00→21:07)
[2022-11-18] MEDS: FUROSEMIDE 40 MG TAB PO SCH ×2 (09:00→16:47)
[2022-11-18] MEDS: PANTOPRAZOLE 40 MG TABLET PO SCH ×2 (09:00→21:07)
[2022-11-18] MEDS: MAGNESIUM OXIDE 400 MG TAB PO SCH (09:00)
[2022-11-18] MEDS: allopurinoL 100 MG TAB PO SCH (09:00)
[2022-11-18] MEDS: POTASSIUM CHLORIDE ER 20 MEQ TAB.ER PO SCH (09:00)
[2022-11-18] MEDS: ASCORBIC ACID 500 MG TAB PO SCH (09:00)
--- NOTE | 2022-11-18 10:29 | P.PN ---
Subjective Patient is seen for follow-up for acute kidney injury on top of chronic kidney disease. Admitted to the hospital with complaints of shortness of breath, cough, wheezing and increased weakness. Currently maintained on IV steroids for COPD exacerbation as well as diuretics for volume overload. Serum creatinine slightly improved to 1.7 from 2.2 . No retention noted. Post void residual was 55 mL. Renal function has improved and currently fairly stable with creatinine at 1.7 mg/dL. Patient remains short of breath although slightly improved from yesterday. Updraft treatments have been increased. Patient remains on steroids, changed to oral prednisone. Lasix is currently 40 mg by mouth twice a day Objective - Vital Signs Vital signs: Vital Signs Temp 97.7 F 11/18/22 08:49 Pulse 78 11/18/22 08:49 Resp 18 11/18/22 08:49 BP 123/84 11/18/22 08:49 Pulse Ox 97 11/18/22 08:49 FiO2 Intake & Output 11/17/22 11/18/22 11/18/22 18:59 06:59 18:59 Intake Total 118 Output Total 300 900 Balance -300 -900 118 Intake: Oral 118 Output: Urine 300 900 Other: Voiding Method Toilet Toilet # Voids 1 1 # Bowel Movements 1 - Exam Patient is awake, comfortable, no acute distress Alert oriented 3 Examination of the heart S1 and S2 Examination lungs shows bilateral wheezing abdomen is soft nontender Examination lower extremity shows trace edema bilaterally FILM EDITOR exam grossly intact - Labs CBC & Chem 7: 11/15/22 08:41 11/17/22 07:18 Labs: Abnormal Lab Results - Last 24 Hours (Table) 11/17/22 11/17/22 Range/Units 16:23 20:13 POC Glucose (mg/dL) 164 H 267 H (70-110) mg/dL Assessment and Plan Assessment: 1. Acute kidney injury nonoliguric secondary to hypotension and component of cardiorenal syndrome. Currently being diuresed. Blood pressure is better. Renal function slightly improved. UA is benign and ultrasound of the kidneys shows no evidence of obstruction. Maintained on oral diuretics now. 2. Chronic kidney disease most likely NKF stage IV. Baseline renal function not available. Patient was seen a neuroradiologist prior to moving into the [facility] recently. Has not established with a neuroradiologist here yet. 3. CHF exacerbation currently being diuresed. Preserved ejection fraction with severe pulmonary hypertension 4. COPD exacerbation maintained on steroids 5. History of chronic A. fib Plan: Continue oral diuretics Steroids as per pulmonology Patient will need to follow-up as outpatient for CK D.
[2022-11-18 10:40] LABS: Calcium 9.1 mg/dL (8.4-10.2); Potassium 4.3 mmol/L (3.5-5.1)
[2022-11-18] MEDS: DOXYCYCLINE 100 MG CAP PO SCH ×2 (11:27→21:09)
[2022-11-18 11:49] LABS: Glucose,Whole Blood 119 mg/dL (70-110)
--- NOTE | 2022-11-18 13:34 | P.PN ---
Subjective Progress Note Date: 11/18/22 Principal diagnosis: Acute exacerbation of COPD, acute on chronic hypoxic respiratory failure 77-year-old female patient, known history of COPD, nausea chronic atrial fibrillation, along with possibility of CHF. 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 In any rate, she is presenting with increasing dyspnea,, cough, chest congestion and wheezing and her symptoms got worse over the past 1 week. She was also producing some yellowish. No pleurisy. No hemoptysis. She came into the emergency she was hospitalized for an acute COPD exacerbation. She's currently on 4 L of O2 nasal cannula. At home she is oxygen dependent and she is also on 3 L O2 nasal cannula. Her blood work shows a WBC count 12.9, hemoglobin of 10.8, her troponin was 0.05 respectively and the last level was 0.04 and a proBNP level was elevated at 6400. LFTs were normal. Electrodes are normal. D-dimer was 0.39. Chest x-ray was consistent with COPD and possibly a component of CHF. The vital screening was negative including influenza A and influenza B and RSV and Covid 19. 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 She is currently on a combination of bronchodilators and steroids. She was seen by cardiology. Echocardiogram was ordered. The patient is seen today 11/14/2022 in follow-up on the selective care unit. She is currently resting fairly comfortable in bed. She is still somewhat bronchospastic and wheezy. She is maintaining O2 saturations in the 90s on 4 L/m per nasal cannula. Ultrasound of the kidneys revealed medical renal disease with cortical thinning. No evidence of obstructive uropathy or calculus. Echocardiogram is pending. She is continued on DuoNeb inhalations, Symbicort, IV Solu-Medrol. Remains on IV Lasix every 12 hours. Anticoagulated with Eliquis. Currently in a negative balance. Sodium 138. Potassium 5.0. Chlor us 97. Bicarb 32. BUN 79. Creatinine 2.01. Glucose 159. The patient is seen today 11/15/2022 in follow-up on the selective care unit. She is breathing a bit easier today compared to yesterday. She is still requiring 4 L nasal cannula to maintain O2 saturations in the 90s. She does have oxygen at home that she is usually on 3 L. She's afebrile. Hemodynamically stable. White count 12.6. Hemoglobin 10.7. Platelets 253. Sodium 140. Potassium 4.8. Bicarb 37. BUN 81. Creatinine 1.80. Glucose 201. She is continued on DuoNeb inhalations, Symbicort, IV Solu-Medrol. Anticoagulated with Eliquis. Remains on IV diuretics. Currently in a -400 ML balance. Patient is seen today 11/16/2022 in follow-up on the selective care unit. She is currently sitting up at the bedside. Awake and alert in no acute distress. She has been slow to progress. Currently maintaining O2 saturations in the 90s on 4 L/m per nasal cannula. Afebrile. Hemodynamically stable. Follow-up chest x-ray reveals low lung volumes with similar cardiomegaly, pulmonary vascular congestion and left pleural effusions. Chronic changes of COPD. Sodium 137. Potassium 4.4. Bicarb 37. BUN 95. Creatinine 1.72. Blood sugar 240. Continued on DuoNeb inhalations, Symbicort, IV Solu-Medrol. Anticoagulated with Eliquis. Remains on IV diuretics. Currently in a -724 ML balance. Patient was reevaluated today on 11/17/2022, remains on the selective care unit, does not seem to be in distress, however the patient is feeling a bit worse today, is having more shortness of breath, intermittent cough and wheezing. Yesterday she was doing much better than today, the only change was the fact that the patient was transitioned from Solu-Medrol to oral prednisone this morning. Continues to respond well to diuretics, the dose of Lasix was decreased to 40 mg by mouth twice a day. Patient remains on her bronch odilators, Remains on prednisone at 40 mg by mouth daily. Obviously she is not quite ready to be discharged home today. Basic metabolic profile is normal BUN is 93 creatinine 1.77, not much of a change of her creatinine in the last few days Reevaluated today on 11/18/2022, patient is feeling better, nonetheless continues to have intermittent cough and wheezing, cough is productive with whitish and yellowish phlegm, no fever no chills no hemoptysis no chest pain. Patient is improving overall, but not back to her baseline, hence I believe one more day of bronchodilators and diuretics as well as steroids may improve her pulmonary status to the point of discharge may be in the next 24 hours. Labs are basically unremarkable creatinine is slightly up to 1.88 Objective - Vital Signs Vital signs: Vital Signs Temp 97.7 F 11/18/22 08:49 Pulse 80 11/18/22 12:04 Resp 18 11/18/22 11:28 BP 127/78 11/18/22 11:28 Pulse Ox 94 L 11/18/22 11:28 FiO2 Intake & Output 11/17/22 11/18/22 11/18/22 18:59 06:59 18:59 Intake Total 236 Output Total 300 900 500 Balance -300 900 -264 Intake: Oral 236 Output: Urine 300 900 500 Other: Voiding Method Toilet Toilet Toilet # Voids 1 1 # Bowel Movements 1 1 - Exam Physical Exam: Revealed 77-year-old female in no distress on 4 L nasal cannula, O2 sats is 94% Head: Atraumatic normocephalic. HEENT:[Neck is supple.] [No neck masses.] [No thyromegaly.] [No JVD.] Chest: [Rhonchi and wheezes persist bilaterally. Cardiac Exam: [Normal S1 and S2, no S3 gallop, no murmur.] Abdomen: [Soft, nontender, no megaly, no rebound, no guarding, normal bowel sounds.] Extremities: [No clubbing, no edema, no cyanosis.] Neurological Exam: [No focal neurologic deficit.] Alert oriented 3. Psychiatric: Normal mood affect and normal mental status. Skin: No rashes. Musculoskeletal: No deformities and no limitation in range of motion - Labs CBC & Chem 7: 11/15/22 08:41 11/18/22 08:17 Labs: Abnormal Lab Results - Last 24 Hours (Table) 11/17/22 11/17/22 11/18/22 Range/Units 16:23 20:13 08:17 Chloride 92 L (98-107) mmol/L Carbon Dioxide 40 H (22-30) mmol/L BUN 89 H (7-17) mg/dL Creatinine 1.88 H (0.52-1.04) mg/dL Glucose 114 H (74-99) mg/dL POC Glucose (mg/dL) 164 H 267 H (70-110) mg/dL 11/18/22 Range/Units 11:47 Chloride (98-107) mmol/L Carbon Dioxide (22-30) mmol/L BUN (7-17) mg/dL Creatinine (0.52-1.04) mg/dL Glucose (74-99) mg/dL POC Glucose (mg/dL) 119 H (70-110) mg/dL Assessment and Plan Assessment: Impression: Acute on chronic hypoxic respiratory failure Acute exacerbation of COPD Severe underlying COPD Ex-smoker Acute diastolic congestive heart failure Severe pulmonary hypertension Mild aortic stenosis Chronic atrial fibrillation, maintained on eliquis and beta blockers Acute on chronic kidney disease History of breast cancer and previous lumpectomy followed by radiation therapy more than 25 years ago. History of gout. Recommendation: Continue oxygen Continue bronchodilators Continue steroids/prednisone Continue diuretics Continue beta blockers, and eliquis Possible discharge in the next 24 hours We will continue to follow Time with Patient: Less than 30
--- NOTE | 2022-11-18 16:38 | P.PN ---
Subjective Progress Note Date: 11/18/22 The patient is a 77-year-old female who is followed by Dr. Palacio regarding her cardiac status who presents with symptoms of progressive dyspnea, cough for the last few days, worse yesterday. In the emergency room she was noted to be in atrial fibrillation and had evidence of exacerbation of COPD and CHF. She has a known history of permanent atrial fibrillation, anticoagulated, post permanent pacemaker implantation. She has underwent a cardiac catheterization according to her a year ago that showed no evidence of obstructive CAD. She has no prior history of myocardial infarction. She recalls being told that her ejection fraction is 40%. Her symptoms were getting worse over the last few days but not associated with chest pain or fever. She had wheezing and cough. She had mild peripheral edema. She has been anticoagulated. She has a history of COPD but has not smoked in over 20 years. In the emergency room her troponin were mildly elevated and her NT proBNP was elevated as well. Her coronary risk factors are positive for hypertension, her lipid profile is not available. Medications: Bumex 1 mg daily, potassium, Singulair, colchicine, Spiriva, Ventolin, Combivent, Advair, metoprolol succinate 75 mg daily,Eliquis 5 mg twice a day 11/14 Patient remains on diuretics with increasing creatinine 1.5-1.9-2.0. Awaiting 2-D echo. Nephrology was consulted and continuing IV diuretics with consideration of possibly holding metoprolol or decreasing. Was somewhat hypotensive 94/60 this morning. Lasix was increased to 40mg IV TID. 11/15 She states that her breathing is feeling better, still with cough, but wheezing improving slightly. She is on 4L NC O2. Creat 1.8. ECHO shows EF 50-55%, RVSP elevated at 67, mild aortic stenosis, moderate tricuspid regurgitation. 11/16 Shortness of breath is worse with walking to the bathroom. Cough is improving. She does not feel back to her baseline. AM labs pending. 11/17 She reports breathing is a little worse today. She is coughing up green sputum. Denies any chest pain. Creat stable at 1.77. Lasix was changed to oral. 11/18 Breathing is better today, she was started on Doxycycline. Denies any chest pains. Creat 1.88. Physical Examination: Vitals reviewed Head: Normocephalic. Eyes: Sclerae nonicteric. Neck: Good carotid upstroke, no bruit, no jugular venous distention. Lungs: Wheezes bilaterally with decreased air exchange, slightly improved on exam today Heart: Irreg rate and rhythm, S1-S2, no S3, no rub. Systolic ejection murmur. Abdomen: Soft nontender, positive bowel sounds Extremities: No edema, intact distal pulses. Impression: 1. Progressive dyspnea with a combination of exacerbation of COPD and CHF, susp ect more related to COPD with diffuse wheeze 2. Chronic persistent atrial fibrillation, anticoagulated 3. Status post permanent pacemaker implantation 4. History of hypertension 5. Troponin elevation most likely representing type II myocardial infarction related to the COPD and CHF 6. Abnormal renal function of unknown duration 7. No evidence of high-grade CAD per patient by cardiac catheterization about a year ago Plan: Antibiotics per pulmonary. Continue with lasix 40mg po BID. Continue with beta angelito. Optimize heart failure regimen as able. Cardiology to sign off. Follow up in clinic in 1 week. Please call with any questions. Objective - Vital Signs Vital signs: Vital Signs Temp 97.7 F 11/18/22 08:49 Pulse 80 11/18/22 12:04 Resp 18 11/18/22 11:28 BP 127/78 11/18/22 11:28 Pulse Ox 94 L 11/18/22 11:28 FiO2 Intake & Output 11/17/22 11/18/22 11/18/22 18:59 06:59 18:59 Intake Total 118 Output Total 300 900 500 Balance -300 900 -382 Intake: Oral 118 Output: Urine 300 900 500 Other: Voiding Method Toilet Toilet Toilet # Voids 1 1 # Bowel Movements 1 1 - Labs CBC & Chem 7: 11/15/22 08:41 11/18/22 08:17 Labs: Abnormal Lab Results - Last 24 Hours (Table) 11/17/22 11/17/22 11/18/22 Range/Units 16:23 20:13 08:17 Chloride 92 L (98-107) mmol/L Carbon Dioxide 40 H (22-30) mmol/L BUN 89 H (7-17) mg/dL Creatinine 1.88 H (0.52-1.04) mg/dL Glucose 114 H (74-99) mg/dL POC Glucose (mg/dL) 164 H 267 H (70-110) mg/dL 11/18/22 Range/Units 11:47 Chloride (98-107) mmol/L Carbon Dioxide (22-30) mmol/L BUN (7-17) mg/dL Creatinine (0.52-1.04) mg/dL Glucose (74-99) mg/dL POC Glucose (mg/dL) 119 H (70-110) mg/dL
[2022-11-18 16:57] LABS: Glucose,Whole Blood 289 mg/dL (70-110)
[2022-11-18 20:11] LABS: Glucose,Whole Blood 200 mg/dL (70-110)
--- NOTE | 2022-11-18 21:02 | P.PN ---
Subjective Progress Note Date: 11/18/22 This is a pleasant 77 years old female with past medical history of Atrial Fibrillation, Asthma, Heart Failure, COPD, GERD/Reflux Presents because of dyspnea and shortness of breath of 1 week duration a ssociated with cough more than one month sometimes with yellow phlegm Patient denies chest pain. No urinary or GI complaints, no dysuria urgency vomiting or diarrhea. No abdominal pain, no headache dizziness weakness or numbness No smoking or illicit tracts, she uses alcohol occasionally She says that she's being nitrite lately and she is being less amount. She's been treated oxygen nasal cannula at home. Vitals reviewed, patient is afebrile. Blood pressure low-normal 90/50. Blood pressure was better on admission 113/63. Patient states 22 and he is saturating 92% on 4 L oxygen via nasal cannula Labs showing mild leukocytosis of 12.9, hemoglobin 10.8. D-dimer is negative at 0.39. Creatinine elevated 1.5, unknown baseline. Electrolytes normal. Liver enzymes elevated. troponin is elevated at 0.059, 0.051, 0.047. probnp is elevated 6400. 3 virus is not detected influenza, rsv and coronavirus ekg showing irregular. Prolonged QRS, some paced rhythm rate around 81, no significant ST-T changes 11/14/2022 Patient is seen and evaluated in follow-up today with multiple medical cons ultations including cardiology and pulmonary following. Patient being treated for CHF/COPD exacerbation. Patient was continued on IV steroids along with breathing treatments and will continue. Patient also continues on IV Lasix and will continue for an additional 24 hours and follow-up with repeat labs his kidney functions are worsening. Nephrology is consulted and pending. Patient is currently afebrile continues to report some shortness of breath all feels improved from admission and asking when she is able to go home. Patient currently maintained on oxygen as well. Await PT/OT therapy evaluation 11/15/2022 Patient seen and evaluated follow-up this morning currently continued on IV steroids along with DuoNeb treatments with pulmonary following. Cardiology and nephrology following as well and kidney functions improved. Patient is maintained on IV Lasix as well and will follow-up with repeat labs. Encouraged increased activity as tolerated and continue supplemental oxygen and weaning as tolerated. Patient does chronically wear some oxygen outpatient. Patient is afebrile denies chest pain or worsening shortness of breath. Patient continues to have dyspnea with exertion and bronchospastic cough with some congestion. Patient appears somewhat improved from yesterday. Will follow-up with consultations about discharge planning. 11/16/2022 Patient is seen and evaluated in follow-up this morning with cardiology, pulmonary, and nephrology following. Patient has been transitioned to oral prednisone and will continue with breathing treatments. Patient is maintained on 3 L via NC which she wears at home. Patient has been transitioned to oral lasix 40mg bid and nephrology following and will need outpatient follow up for ckd. Encouraged increased activity as tolerated. Patient is afebrile and denies chest pain or palpitations. Patient continues to report shortness of breath with exertion. No reports of nausea or vomiting and tolerating diet. 11/17/2022 Patient is seen and evaluated follow-up this morning with pulmonary and cardiology are following. Patient is maintained on oral Lasix was on breathing treatments. Patient reports continued shortness of breath with wheezing and increased shortness of breath with exertion. Per pulmonary patient is not quite ready for discharge given her respiratory status recommend monitoring for clinical improvement. Encouraged increase activity as tolerated. We'll provide incentive spirometer and obtain chest x-ray. Kidney functions elevated total stable and will continue current regimen. Patient is afebrile denies chest pain or palpitations. No reports of nausea or vomiting and patient tolerating diet. 11/18/2022 Patient is seen this morning with pulmonary and cardiology following. Patient has been transitioned oral Lasix along with oral prednisone and maintained on breathing treatments. Patient continues to be congested with bronchospastic cough and wheezing although improved. Patient is able to expectorate some more and feels somewhat improved. Patient continues to report dyspnea with exertion and pulmonary recommend monitoring overnight with possible discharge in 24 hours. Patient's kidney function slightly elevated although stable and will continue current Lasix dosing. Patient to follow-up outpatient with nephrology for CJD. Patient encouraged to increase activity as tolerated and will discuss discharge planning in 24 hours. Patient is afebrile with no reports of worsening shortness of breath. Patient denies chest pain or palpitations. Patient is tolerating diet with no reports of nausea or vomiting noted. Review of systems: Constitutional: No reports of fatigue, fever, or chills Cardiovascular: No reports of chest pain or palpitations Respiratory: reports of shortness of breath with some wheezing and exertion with walking, slightly improved from yesterday GI: No reports of nausea, vomiting, or diarrhea : No reports of dysuria or retention Neurovascular: No reports of weakness or numbness All medications have been reviewed Physical exam: GENERAL: The patient is alert and oriented x3, sitting up in the bed. Well developed, well nourished. Obese. HEENT: Pupils are round and equally reacting to light. EOMI. No scleral icterus. No conjunctival pallor. Normocephalic, atraumatic. No pharyngeal erythema. No thyromegaly. CARDIOVASCULAR: S1 and S2 muffled PULMONARY: Diminished breath sounds bilaterally with bilateral expiratory wheezing, improved from yesterday ABDOMEN: Soft, nontender, nondistended, normoactive bowel sounds. No palpable organomegaly. MUSCULOSKELETAL: No joint swelling or deformity. EXTREMITIES: No cyanosis, clubbing, or pedal edema. NEUROLOGICAL: Gross neurological examination did not reveal any focal deficits. SKIN: No rashes. no petechiae. Assessment: Acute COPD exacerbation Acute on chronic CHF exacerbation, diastolic Elevated troponins, likely type 2 GA due to COPD as well as component of CHF exacerbation Acute on chronic hypoxic respiratory failure, wears oxygen outpatient Acute kidney injury, improved Chronic persistent Atrial fibrillation on blood thinner History of asthma GI and DVT prophylaxis Plan: Continue with current medications with cardiology and pulmonary following. Patient is continued on DuoNeb treatments and will continue and encouraged increased activity as tolerated Patient reports she continues to have shortness of breath with exertion while walking to the bathroom and is maintained on3-4 L of oxygen via nasal cannula patient wears outpatient. Nephrology following as well and will need outpatient follow up for ckd, kidney functions currently stable and maintained on oral Lasix twice daily Will continue to monitor closely with possible discharge in 24 hours once cleared by pulmonary. Pulmonary has started the patient on doxycycline. Cardiology has cleared the patient for discharge Prognosis is guarded Probable discharge in 24 hours. The impression and plan of care has been dictated by Syl Perez, Nurse Practitioner as directed. Dr. Neftali MD I have performed a history and examination and MDM of this patient, discussed the same with the dictator, and agree with the dictator's assessment and plan as written ,documented as a scribe. Based on total visit time, I have performed more than 50% of the visit. Objective - Vital Signs Vital signs: Vital Signs Temp 97.7 F 11/18/22 08:49 Pulse 80 11/18/22 12:04 Resp 18 11/18/22 11:28 BP 127/78 11/18/22 11:28 Pulse Ox 94 L 11/18/22 11:28 FiO2 Intake & Output 11/17/22 11/18/22 11/18/22 18:59 06:59 18:59 Intake Total 236 Output Total 300 900 500 Balance -300 900 -264 Intake: Oral 236 Output: Urine 300 900 500 Other: Voiding Method Toilet Toilet Toilet # Voids 1 1 # Bowel Movements 1 1 - Labs CBC & Chem 7: 11/15/22 08:41 11/18/22 08:17 Labs: Abnormal Lab Results - Last 24 Hours (Table) 11/17/22 11/17/22 11/18/22 Range/Units 16:23 20:13 08:17 Chloride 92 L (98-107) mmol/L Carbon Dioxide 40 H (22-30) mmol/L BUN 89 H (7-17) mg/dL Creatinine 1.88 H (0.52-1.04) mg/dL Glucose 114 H (74-99) mg/dL POC Glucose (mg/dL) 164 H 267 H (70-110) mg/dL 11/18/22 Range/Units 11:47 Chloride (98-107) mmol/L Carbon Dioxide (22-30) mmol/L BUN (7-17) mg/dL Creatinine (0.52-1.04) mg/dL Glucose (74-99) mg/dL POC Glucose (mg/dL) 119 H (70-110) mg/dL
[2022-11-18] MEDS: LORATADINE 10 MG TAB PO SCH (21:07)
[2022-11-18] MEDS: METOPROLOL SUCCINATE (ER) 25 MG TAB.ER.24H PO SCH (21:07)
[2022-11-18] MEDS: MONTELUKAST 10 MG TAB PO SCH (21:08)
[2022-11-19 05:58] LABS: Glucose,Whole Blood 109 mg/dL (70-110)
[2022-11-19] MEDS: INSULIN ASPART (NovoLOG) 100 UNIT/ML VIAL SQ SCH ×2 (06:25→13:54)
[2022-11-19 07:17] LABS: Basophils % (A) 0 %; Eosinophils # (A) 0.1 k/uL (0-0.7); Eosinophils % (A) 0 %; HCT 33.3 % (34.0-46.0); HGB 10.5 gm/dL (11.4-16.0); Lymphocytes # (A) 1.4 k/uL (1.0-4.8); Lymphocytes % (A) 9 %; MCHC 31.4 g/dL (31.0-37.0); MCV 92.2 fL (80.0-100.0); Mean Platelet Volume 8.3; Monocytes # (A) 0.7 k/uL (0-1.0); Monocytes % (A) 5 %; Neutrophils # (A) 13.5 k/uL (1.3-7.7); Neutrophils % (A) 85 %; Platelet Count 298 k/uL (150-450); RBC 3.62 m/uL (3.80-5.40); RDW 14.3 % (11.5-15.5); WBC 15.9 k/uL (3.8-10.6)
[2022-11-19 07:49] LABS: Magnesium 2.4 mg/dL (1.6-2.3); Potassium 4.3 mmol/L (3.5-5.1)
[2022-11-19] MEDS: IPRATROPIUM 0.5 MG/2.5 ML NEBU INHALATION SCH ×2 (07:58→12:02)
[2022-11-19] MEDS: SYMBICORT 160-4.5 MCG INHALER INHALATION SCH (07:58)
--- NOTE | 2022-11-19 09:08 | P.PN ---
Subjective Progress Note Date: 11/19/22 Principal diagnosis: This is a 77-year-old followed with acute kidney injury secondary to cardiorenal syndrome from kidney disease. She has COPD. She is feeling much better she is improving as far as renal function is concerned. Blood pressure is sometimes low in the 170 systolic range, and urine output 1700 mL his creatinine has gone down to 1.59 from a peak of 2.01 Objective - Vital Signs Vital signs: Vital Signs Temp 97.4 F L 11/19/22 02:00 Pulse 60 11/19/22 08:08 Resp 18 11/19/22 02:00 BP 107/70 11/19/22 02:00 Pulse Ox 98 11/19/22 07:58 FiO2 Intake & Output 11/18/22 11/19/22 11/19/22 18:59 06:59 18:59 Intake Total 896 120 Output Total 500 1200 Balance 396 -1200 120 Weight 80.1 kg Intake: Oral 896 120 Output: Urine 500 1200 Other: Voiding Method Toilet Toilet # Bowel Movements 1 1 Awake alert seems short of breath on oxygen HEENT exam JVP is elevated more than 8 cm about sternal angle the case supple no facial asymmetry Lungs are significant for bilateral wheezing less than optimal air entry and oc casional coarse crackle Heart sounds unremarkable for any murmur rub gallop Abdomen soft nontender Extremity trace edema Neurologically awake alert oriented - Labs CBC & Chem 7: 11/19/22 06:32 11/19/22 06:32 Labs: Abnormal Lab Results - Last 24 Hours (Table) 11/18/22 11/18/22 11/18/22 Range/Units 08:17 11:47 16:56 WBC (3.8-10.6) k/uL RBC (3.80-5.40) m/uL Hgb (11.4-16.0) gm/dL Hct (34.0-46.0) % Neutrophils # (1.3-7.7) k/uL Chloride 92 L (98-107) mmol/L Carbon Dioxide 40 H (22-30) mmol/L BUN 89 H (7-17) mg/dL Creatinine 1.88 H (0.52-1.04) mg/dL Glucose 114 H (74-99) mg/dL POC Glucose (mg/dL) 119 H 289 H (70-110) mg/dL Magnesium (1.6-2.3) mg/dL 11/18/22 11/19/22 11/19/22 Range/Units 20:10 06:32 06:32 WBC 15.9 H (3.8-10.6) k/uL RBC 3.62 L (3.80-5.40) m/uL Hgb 10.5 L (11.4-16.0) gm/dL Hct 33.3 L (34.0-46.0) % Neutrophils # 13.5 H (1.3-7.7) k/uL Chloride 93 L (98-107) mmol/L Carbon Dioxide 37 H (22-30) mmol/L BUN 85 H (7-17) mg/dL Creatinine 1.59 H (0.52-1.04) mg/dL Glucose 101 H (74-99) mg/dL POC Glucose (mg/dL) 200 H (70-110) mg/dL Magnesium 2.4 H (1.6-2.3) mg/dL Assessment and Plan Assessment: Impression 1. Acute kidney injury from cardiorenal syndrome, improving with diuresis. Creatinine down from 2 mg to 1.59 urine output of 1700 mL. 2. Chronic kidney disease stage IV. Nephrosclerosis. 3. COPD and CHF currently being diuresed. 4. Severe pulmonary hypertension 5. Atrial fibrillation, controlled ventricular response. 6. Anemia hemoglobin is 10.5 adequate. 6. Metabolic alkalosis is improving Recommendation Continue diuretics. Watch creatinine and urine output and blood pressures
[2022-11-19] MEDS: FERROUS SULFATE 325 MG TAB PO SCH (09:29)
[2022-11-19] MEDS: predniSONE 20 MG TAB PO SCH (09:29)
[2022-11-19] MEDS: FUROSEMIDE 40 MG TAB PO SCH (09:29)
[2022-11-19] MEDS: allopurinoL 100 MG TAB PO SCH (09:29)
[2022-11-19] MEDS: APIXABAN 5 MG TAB PO SCH (09:29)
[2022-11-19] MEDS: PANTOPRAZOLE 40 MG TABLET PO SCH (09:30)
[2022-11-19] MEDS: CHOLECALCIFEROL 25 MCG (1000 IU) TABLET PO SCH (09:30)
[2022-11-19] MEDS: POTASSIUM CHLORIDE ER 20 MEQ TAB.ER PO SCH (09:30)
[2022-11-19] MEDS: ASCORBIC ACID 500 MG TAB PO SCH (09:30)
[2022-11-19] MEDS: MAGNESIUM OXIDE 400 MG TAB PO SCH (09:30)
[2022-11-19] MEDS: DOXYCYCLINE 100 MG CAP PO SCH (09:30)
[2022-11-19 10:29] VITALS: BP 109/73; TEMP 97.7
[2022-11-19 12:10] LABS: Glucose,Whole Blood 119 mg/dL (70-110)
[2022-11-19 12:12] VITALS: PULSE 64
--- NOTE | 2022-11-19 13:25 | P.PN ---
Subjective Progress Note Date: 11/19/22 Principal diagnosis: Acute exacerbation of COPD, acute on chronic hypoxic respiratory failure 77-year-old female patient, known history of COPD, nausea chronic atrial fibrillation, along with possibility of CHF. 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 In any rate, she is presenting with increasing dyspnea,, cough, chest congestion and wheezing and her symptoms got worse over the past 1 week. She was also producing some yellowish. No pleurisy. No hemoptysis. She came into the emergency she was hospitalized for an acute COPD exacerbation. She's currently on 4 L of O2 nasal cannula. At home she is oxygen dependent and she is also on 3 L O2 nasal cannula. Her blood work shows a WBC count 12.9, hemoglobin of 10.8, her troponin was 0.05 respectively and the last level was 0.04 and a proBNP level was elevated at 6400. LFTs were normal. Electrodes are normal. D-dimer was 0.39. Chest x-ray was consistent with COPD and possibly a component of CHF. The vital screening was negative including influenza A and influenza B and RSV and Covid 19. 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 She is currently on a combination of bronchodilators and steroids. She was seen by cardiology. Echocardiogram was ordered. The patient is seen today 11/14/2022 in follow-up on the selective care unit. She is currently resting fairly comfortable in bed. She is still somewhat bronchospastic and wheezy. She is maintaining O2 saturations in the 90s on 4 L/m per nasal cannula. Ultrasound of the kidneys revealed medical renal disease with cortical thinning. No evidence of obstructive uropathy or calculus. Echocardiogram is pending. She is continued on DuoNeb inhalations, Symbicort, IV Solu-Medrol. Remains on IV Lasix every 12 hours. Anticoagulated with Eliquis. Currently in a negative balance. Sodium 138. Potassium 5.0. Chlor su 97. Bicarb 32. BUN 79. Creatinine 2.01. Glucose 159. The patient is seen today 11/15/2022 in follow-up on the selective care unit. She is breathing a bit easier today compared to yesterday. She is still requiring 4 L nasal cannula to maintain O2 saturations in the 90s. She does have oxygen at home that she is usually on 3 L. She's afebrile. Hemodynamically stable. White count 12.6. Hemoglobin 10.7. Platelets 253. Sodium 140. Potassium 4.8. Bicarb 37. BUN 81. Creatinine 1.80. Glucose 201. She is continued on DuoNeb inhalations, Symbicort, IV Solu-Medrol. Anticoagulated with Eliquis. Remains on IV diuretics. Currently in a -400 ML balance. Patient is seen today 11/16/2022 in follow-up on the selective care unit. She is currently sitting up at the bedside. Awake and alert in no acute distress. She has been slow to progress. Currently maintaining O2 saturations in the 90s on 4 L/m per nasal cannula. Afebrile. Hemodynamically stable. Follow-up chest x-ray reveals low lung volumes with similar cardiomegaly, pulmonary vascular congestion and left pleural effusions. Chronic changes of COPD. Sodium 137. Potassium 4.4. Bicarb 37. BUN 95. Creatinine 1.72. Blood sugar 240. Continued on DuoNeb inhalations, Symbicort, IV Solu-Medrol. Anticoagulated with Eliquis. Remains on IV diuretics. Currently in a -724 ML balance. Patient was reevaluated today on 11/17/2022, remains on the selective care unit, does not seem to be in distress, however the patient is feeling a bit worse today, is having more shortness of breath, intermittent cough and wheezing. Yesterday she was doing much better than today, the only change was the fact that the patient was transitioned from Solu-Medrol to oral prednisone this morning. Continues to respond well to diuretics, the dose of Lasix was decreased to 40 mg by mouth twice a day. Patient remains on her bronch odilators, Remains on prednisone at 40 mg by mouth daily. Obviously she is not quite ready to be discharged home today. Basic metabolic profile is normal BUN is 93 creatinine 1.77, not much of a change of her creatinine in the last few days Reevaluated today on 11/18/2022, patient is feeling better, nonetheless continues to have intermittent cough and wheezing, cough is productive with whitish and yellowish phlegm, no fever no chills no hemoptysis no chest pain. Patient is improving overall, but not back to her baseline, hence I believe one more day of bronchodilators and diuretics as well as steroids may improve her pulmonary status to the point of discharge may be in the next 24 hours. Labs are basically unremarkable creatinine is slightly up to 1.88 Reevaluated today on 11/19/2022, patient is feeling a bit better today compared to yesterday, less cough and less wheezing less shortness of breath, her renal functioning is improving in spite of diuretics. Creatinine is down to 1.59. Patient remains on bronchodilators and on steroids, overall pulmonary status is improving, on physical examination she had scattered wheezing on forced expiratory maneuver, patient could be considered for discharge planning either today or in the next 24 hours. Assuming she is cleared for discharge by other consultants. WBC count is 15.9 hemoglobin is 10.5 electrodes are normal renal profile showed a BUN of 85 creatinine 1.5 Objective - Vital Signs Vital signs: Vital Signs Temp 97.7 F 11/19/22 08:00 Pulse 64 11/19/22 12:11 Resp 18 11/19/22 08:00 BP 109/73 11/19/22 08:00 Pulse Ox 98 11/19/22 08:00 FiO2 Intake & Output 11/18/22 11/19/22 11/19/22 18:59 06:59 18:59 Intake Total 896 120 Output Total 500 1200 Balance 396 -1200 120 Weight 80.1 kg Intake: Oral 896 120 Output: Urine 500 1200 Other: Voiding Method Toilet Toilet Toilet # Bowel Movements 1 1 - Exam Physical Exam: Revealed 77-year-old female in no distress on 4 L nasal cannula, O2 sats is 98% Head: Atraumatic normocephalic. HEENT:[Neck is supple.] [No neck masses.] [No thyromegaly.] [No JVD.] Chest: Minimal wheezing on forced expiratory maneuver, good breath sound bilaterally otherwise Cardiac Exam: [Normal S1 and S2, no S3 gallop, no murmur.] Abdomen: [Soft, nontender, no megaly, no rebound, no guarding, normal bowel sounds.] Extremities: [No clubbing, no edema, no cyanosis.] Neurological Exam: [No focal neurologic deficit.] Alert oriented 3. Psychiatric: Normal mood affect and normal mental status. Skin: No rashes. Musculoskeletal: No deformities and no limitation in range of motion - Labs CBC & Chem 7: 11/19/22 06:32 11/19/22 06:32 Labs: Abnormal Lab Results - Last 24 Hours (Table) 11/18/22 11/18/22 11/19/22 Range/Units 16:56 20:10 06:32 WBC 15.9 H (3.8-10.6) k/uL RBC 3.62 L (3.80-5.40) m/uL Hgb 10.5 L (11.4-16.0) gm/dL Hct 33.3 L (34.0-46.0) % Neutrophils # 13.5 H (1.3-7.7) k/uL Chloride (98-107) mmol/L Carbon Dioxide (22-30) mmol/L BUN (7-17) mg/dL Creatinine (0.52-1.04) mg/dL Glucose (74-99) mg/dL POC Glucose (mg/dL) 289 H 200 H (70-110) mg/dL Magnesium (1.6-2.3) mg/dL 11/19/22 11/19/22 Range/Units 06:32 12:09 WBC (3.8-10.6) k/uL RBC (3.80-5.40) m/uL Hgb (11.4-16.0) gm/dL Hct (34.0-46.0) % Neutrophils # (1.3-7.7) k/uL Chloride 93 L (98-107) mmol/L Carbon Dioxide 37 H (22-30) mmol/L BUN 85 H (7-17) mg/dL Creatinine 1.59 H (0.52-1.04) mg/dL Glucose 101 H (74-99) mg/dL POC Glucose (mg/dL) 119 H (70-110) mg/dL Magnesium 2.4 H (1.6-2.3) mg/dL Assessment and Plan Assessment: Impression: Acute on chronic hypoxic respiratory failure Acute exacerbation of COPD Severe underlying COPD Ex-smoker Acute diastolic congestive heart failure Severe pulmonary hypertension Mild aortic stenosis Chronic atrial fibrillation, maintained on eliquis and beta blockers Acute on chronic kidney disease History of breast cancer and previous lumpectomy followed by radiation therapy more than 25 years ago. History of gout. Recommendation: Continue oxygen Continue diuretics and bronchodilators. Continue prednisone burst and taper Continue beta blockers, and eliquis We will clear the patient for possible discharge later today or tomorrow if cleared by other consultants Should have outpatient follow-up in our office post discharge We will continue to follow Time with Patient: Less than 30
--- NOTE | 2022-11-20 06:53 | P.DS ---
Providers Date of admission: 11/12/22 18:22 Attending physician: Guanako Lindsay Consults: 11/13/22 09:16 Consult Physician Routine Consulting Provider: Adriano Alonzo Consult Reason/Comments: copd Do you want consulting provider notified?: Yes 11/13/22 10:36 Consult Physician Urgent Consulting Provider: Kenneth August Consult Reason/Comments: lanie Do you want consulting provider notified?: Yes Primary care physician: Ingrid Ocampo DO Hospital Course: Diagnoses: Acute COPD exacerbation Acute on chronic CHF exacerbation, diastolic Elevated troponins, likely type 2 NM due to COPD as well as component of CHF exacerbation Acute on chronic hypoxic respiratory failure, wears oxygen outpatient Acute kidney injury, improved Chronic persistent Atrial fibrillation on blood thinner History of asthma Hospital course: This is a pleasant 77 years old female with past medical history of Atrial Fibrillation, Asthma, Heart Failure, COPD, GERD/Reflux Presents because of dyspnea and shortness of breath of 1 week duration associated with cough. Patient found to have acute COPD exacerbation and diastolic CHF with ejection fraction about 55% with severe ominously hypertension and severe right ventricular dark patient on echocardiogram. Also patient has evidence of elevated creatinine 1.5 and 1.8, patient has been evaluated by pulmonary, cardiology and nephrology service, she was treated with doxycycline, steroids and Lasix. On home dose of the liquids for atrial fibrillation. Elevated troponin are attributed to CHF. Patient improved clinically and she is back close to her baseline, however dyspnea is minimal, no chest pain. Patient is controlled. No change in bowel habits. No fever. Patient is able to walk to the bathroom [id number] no exertional dyspnea. She has a walker at home which she passed use when she is back. Patient also has improved and she is agreeable to be discharged home today. Patient was cleared for discharge by all consultants nephrology, cardiology and pulmonary services. Patient will be discharged on tapering prednisone, oral Lasix and doxycycline to finish her course of therapy. Problems and management plan were discussed with the patient and he verbalized understanding and acceptance Patient was found stable and can be discharged home in guarded prognosis however he needs follow-up as an outpatient. Patient was instructed to follow up with PCP Dr. Ocampo within one week and patient agrees Patient was instructed to follow up with steel pickler Dr. Castro in 1 week and her director of operations for therapy Dr. Alonzo and she has appointment with him on 5/5 to which she agreeable and states she will follow up Physical exam Gen: patient is a AAOx3, no distress CVS: S1-S2, RRR, no murmur Lungs: B/L CTA, no wheezing Abdomen: soft, no distention, no tenderness, positive bowel sounds Extremity: no leg edema or induration Neuro: Motor and sensation intact. Gait is normal. Time spent more than 35 minutes Patient Condition at Discharge: Fair Plan - Discharge Summary Discharge Rx Participant: Yes New Discharge Prescriptions: New Doxycycline [Vibramycin] 100 mg PO BID 4 Days #8 cap Furosemide [Lasix] 40 mg PO BID@0900,1600 #60 tab predniSONE 10 mg PO DIRECTED #40 tab Continue allopurinoL [Zyloprim] 200 mg PO DAILY Apixaban [Eliquis] 5 mg PO BID Ferrous Sulfate [Iron (65 MG Elemental)] 325 mg PO DAILY Magnesium Oxide [Mag-Ox] 400 mg PO DAILY Metoprolol Succinate [Metoprolol Succinate ER] 75 mg PO HS Tiotropium Sherman [Spiriva Handihaler] 18 mcg INHALATION RT-DAILY Power C Supplement 2 tab PO DAILY Cholecalciferol [Vitamin D3 (25 Mcg = 1000 Iu)] 75 mcg PO DAILY Colchicine 0.6 mg PO TUTH Fexofenadine HCl [Jamee Allergy] 180 mg PO HS Fluticasone Propion/Salmeterol [Advair 500-50 Diskus] 1 puff INHALATION RT- BID Ipratropium/Albuter 20-100Mcg [Combivent Respimat 20-100Mcg Inhaler] 1 puff INHALATION RT-QID PRN PRN Reason: Shortness Of Breath Montelukast [Singulair] 10 mg PO HS Pantoprazole [Protonix] 40 mg PO BID Potassium Chloride ER [K-Dur 20] 20 meq PO DAILY Vitamin B Complex 1 cap PO DAILY Ipratropium-Albuterol Nebulize [Duoneb 0.5 mg-3 mg/3 ml Soln] 3 ml INHALATION RT-QID PRN #1 each PRN Reason: Shortness Of Breath Albuterol Inhaler [Ventolin Hfa Inhaler] 2 puff INHALATION RT-QID PRN #1 each PRN Reason: Shortness Of Breath Discontinued Bumetanide [Bumex] 1 mg PO DAILY Losartan Potassium 100 mg PO DAILY Discharge Medication List Apixaban [Eliquis] 5 mg PO BID 11/12/22 [History] Cholecalciferol [Vitamin D3 (25 Mcg = 1000 Iu)] 75 mcg PO DAILY 11/12/22 [History] Colchicine 0.6 mg PO TUTH 11/12/22 [History] Ferrous Sulfate [Iron (65 MG Elemental)] 325 mg PO DAILY 11/12/22 [History] Fexofenadine HCl [Jamee Allergy] 180 mg PO HS 11/12/22 [History] Fluticasone Propion/Salmeterol [Advair 500-50 Diskus] 1 puff INHALATION RT-BID 11/12/22 [History] Ipratropium/Albuter 20-100Mcg [Combivent Respimat 20-100Mcg Inhaler] 1 puff INHALATION RT-QID PRN 11/12/22 [History] Magnesium Oxide [Mag-Ox] 400 mg PO DAILY 11/12/22 [History] Metoprolol Succinate [Metoprolol Succinate ER] 75 mg PO HS 11/12/22 [History] Montelukast [Singulair] 10 mg PO HS 11/12/22 [History] Pantoprazole [Protonix] 40 mg PO BID 11/12/22 [History] Potassium Chloride ER [K-Dur 20] 20 meq PO DAILY 11/12/22 [History] Power C Supplement 2 tab PO DAILY 11/12/22 [History] Tiotropium Sherman [Spiriva Handihaler] 18 mcg INHALATION RT-DAILY 11/12/22 [History] Vitamin B Complex 1 cap PO DAILY 11/12/22 [History] allopurinoL [Zyloprim] 200 mg PO DAILY 11/12/22 [History] Albuterol Inhaler [Ventolin Hfa Inhaler] 2 puff INHALATION RT-QID PRN #1 each 11/19/22 [Rx] Doxycycline [Vibramycin] 100 mg PO BID 4 Days #8 cap 11/19/22 [Rx] Furosemide [Lasix] 40 mg PO BID@0900,1600 #60 tab 11/19/22 [Rx] Ipratropium-Albuterol Nebulize [Duoneb 0.5 mg-3 mg/3 ml Soln] 3 ml INHALATION RT-QID PRN #1 each 11/19/22 [Rx] predniSONE 10 mg PO DIRECTED #40 tab 11/19/22 [Rx] Follow up Appointment(s)/Referral(s): Ingrid Ocampo DO [Primary Care Provider] - 1-2 days Adriano Alonzo MD [STAFF PHYSICIAN] - 11/25/22 9:00 am William Castro DO [STAFF PHYSICIAN] - 1 Week Activity/Diet/Wound Care/Special Instructions: heart healthy diet activity is restricted till you see your doctor Discharge Disposition: HOME WITH HOME HEALTH SERVICES Care Plan Goals (MU): [facility] will call to set up appointment. Any questions please call agency.
== END 2022-11-19 14:55 | disposition home health service (06) | DRG 280 ==
LOC: SUPCPDRO 14:50 → EC 14:50 → 3SCARD 18:22
PROVIDERS: ADMIT Hospitalist; ATTEND Hospitalist
DX: I13.0 Hypertensive heart and chronic kidney disease with heart failure and stage 1 through stage 4 chronic kidney disease, or unspecified chronic kidney disease (principal); I21.A1 Myocardial infarction type 2; I50.33 Acute on chronic diastolic (congestive) heart failure; J96.21 Acute and chronic respiratory failure with hypoxia; N17.9 Acute kidney failure, unspecified; J44.1 Chronic obstructive pulmonary disease with (acute) exacerbation; N18.4 Chronic kidney disease, stage 4 (severe); I48.21 Permanent atrial fibrillation; I45.2 Bifascicular block; I27.20 Pulmonary hypertension, unspecified; I49.5 Sick sinus syndrome; I95.9 Hypotension, unspecified; I08.3 Combined rheumatic disorders of mitral, aortic and tricuspid valves; K21.9 Gastro-esophageal reflux disease without esophagitis; Z20.822 Contact with and (suspected) exposure to COVID-19; Z99.81 Dependence on supplemental oxygen; Z79.01 Long term (current) use of anticoagulants; Z95.0 Presence of cardiac pacemaker; Z85.3 Personal history of malignant neoplasm of breast; Z87.891 Personal history of nicotine dependence; Z98.61 Coronary angioplasty status; Z88.6 Allergy status to analgesic agent; Z79.899 Other long term (current) drug therapy; Z79.51 Long term (current) use of inhaled steroids; Z92.3 Personal history of irradiation; Z87.39 Personal history of other diseases of the musculoskeletal system and connective tissue
CPT/HCPCS: 36415; 71045; 71046; 76770; 80048; 80053; 81001; 83605; 83735; 83880; 84484; 85025; 85379; 85610; 85730; 87636; 93005; 93306; 94640; 94760; 96374; 96375; 99291

== ENCOUNTER 2023-01-04 20:15 | Observation (INO) | payer MEDICARE ==
--- NOTE | 2023-01-04 20:28 | ED ---
SOB HPI - General Chief Complaint: Shortness of Breath Stated Complaint: SOB Time Seen by Provider: 01/04/23 20:19 Source: patient Mode of arrival: EMS Limitations: no limitations - History of Present Illness Initial Comments: This patient is a 77-year-old woman with history of COPD/CHF on home oxygen. She states that over the past 2 weeks she has been having progressively worsening shortness of breath. She states that she can no longer tolerate the slightest exertion at home. She states that she has had increase her oxygen from the baseline that she is at which is usually 2L, up to 5L, and her oxygen will not go higher than that. She states the breathing is worse when she does any exertion or when she is lying flat. She denies fever or chills. No chest pain. She states there is just occasional cough, no sputum. MD Complaint: shortness of breath Onset/Timin -: week(s) Severity scale (1-10): 0 Consistency: constant Improves With: upright position Worsens With: lying flat, exertion Known History Of: COPD, congestive heart failure Associated Symptoms: denies other symptoms Treatments Prior to Arrival: none - Related Data Home Oxygen Therapy: Yes Home Oxygen Amount: 4 Liters Home Medications Medication Instructions Recorded Confirmed Apixaban [Eliquis] 5 mg PO BID 11/12/22 01/05/23 Cholecalciferol [Vitamin D3 (25 150 mcg PO DAILY 11/12/22 01/05/23 Mcg = 1000 Iu)] Colchicine 0.6 mg PO TUTH 11/12/22 01/05/23 Ferrous Sulfate [Iron (65 MG 325 mg PO DAILY 11/12/22 01/05/23 Elemental)] Fexofenadine HCl [Jamee Allergy] 180 mg PO 11/12/22 01/05/23 Fluticasone Propion/Salmeterol 1 puff INHALATION RT-BID 11/12/22 01/05/23 [Advair 500-50 Diskus] Ipratropium/Albuter 20-100Mcg 1 puff INHALATION RT-QID PRN 11/12/22 01/05/23 [Combivent Respimat 20-100Mcg Inhaler] Magnesium Oxide [Mag-Ox] 400 mg PO DAILY 11/12/22 01/05/23 Metoprolol Succinate [Metoprolol 75 mg PO HS 11/12/22 01/05/23 Succinate ER] Montelukast [Singulair] 10 mg PO HS 11/12/22 01/05/23 Pantoprazole [Protonix] 40 mg PO BID 11/12/22 01/05/23 Potassium Chloride ER [K-Dur 20] 20 meq PO DAILY 11/12/22 01/05/23 Power C Supplement 2 tab PO DAILY 11/12/22 01/05/23 Tiotropium [place] [Spiriva 18 mcg INHALATION RT-DAILY 11/12/22 01/05/23 Handihaler] Vitamin B Complex 1 cap PO DAILY 11/12/22 01/05/23 allopurinoL [Zyloprim] 150 mg PO DAILY 11/12/22 01/05/23 Previous Rx's Medication Instructions Recorded Albuterol Inhaler [Ventolin Hfa 2 puff INHALATION RT-QID PRN #1 11/19/22 Inhaler] each Furosemide [Lasix] 40 mg PO BID@0900,1600 #60 tab 11/19/22 Ipratropium-Albuterol Nebulize 3 ml INHALATION RT-QID PRN #1 each 11/19/22 [Duoneb 0.5 mg-3 mg/3 ml Soln] methylPREDNISolone Dose Pack 4 mg PO DIRECTED #1 packet 01/06/23 [Medrol Dose Pack] Allergies Allergy/AdvReac Type Severity Reaction Status Date / Time aspirin Allergy Anaphylaxis Verified 01/05/23 08:37 ibuprofen Allergy Anaphylaxis Verified 01/05/23 08:37 Review of Systems ROS Statement: Those systems with pertinent positive or pertinent negative responses have been documented in the HPI. ROS Other: All systems not noted in ROS Statement are negative. Constitutional: Denies: fever, chills, weakness Respiratory: Reports: dyspnea. Denies: cough, wheezes, hemoptysis Cardiovascular: Reports: dyspnea on exertion, orthopnea, edema. Denies: chest pain, palpitations, syncope Gastrointestinal: Denies: abdominal pain, nausea, vomiting, diarrhea, melena, hematochezia Genitourinary: Denies: dysuria, hematuria Musculoskeletal: Denies: back pain Skin: Denies: rash Neurological: Denies: headache, weakness Past Medical History Past Medical History: Atrial Fibrillation, Asthma, Cancer, Heart Failure, COPD, GERD/Reflux, Skin Disorder Additional Past Medical History / Comment(s): COPD, asthma, breast cancer-right lumpectomy and radiation therapy 25 years ago, wears 3L NC at home, chronic atrial fibrillation, CHF (systolic ). Arthritis, dry patch on right leg, gout History of Any Multi-Drug Resistant Organisms: None Reported Past Surgical History: Section, Heart Catheterization, Hernia Repair, Pacemaker Additional Past Surgical History / Comment(s): left hand surgery for broken index and middle finger Past Anesthesia/Blood Transfusion Reactions: No Reported Reaction Type of Cardiac Device: Permanent Pacemaker Device Placement Date:: 07/2021 Smoking Status: Former smoker - Past Family History Mother Family Medical History: Diabetes Mellitus General Exam Limitations: no limitations General appearance: alert, in no apparent distress Head exam: Present: atraumatic, normocephalic Eye exam: Present: normal appearance. Absent: scleral icterus, conjunctival injection Neck exam: Present: normal inspection Respiratory exam: Present: wheezes (Trace wheeze), rales (Bilateral lower lung chong). Absent: respiratory distress, rhonchi, stridor, accessory muscle use, decreased breath sounds Cardiovascular Exam: Present: regular rate, normal rhythm, normal heart sounds. Absent: systolic murmur, diastolic murmur, rubs, gallop GI/Abdominal exam: Present: soft. Absent: distended, tenderness, guarding, rebound, rigid, mass Extremities exam: Present: normal capillary refill, pedal edema (Right greater than left (patient states this is chronic)). Absent: calf tenderness Neurological exam: Present: alert Skin exam: Present: warm, dry, intact, normal color. Absent: rash Course Vital Signs 01/04/23 01/05/23 01/05/23 22:06 00:02 03:19 Temperature Pulse Rate 70 70 70 Respiratory 22 22 22 Rate Blood Pressure 119/59 110/60 133/70 O2 Sat by Pulse 92 L 94 L 95 Oximetry 01/05/23 01/05/23 01/05/23 04:00 05:00 06:00 Temperature Pulse Rate 70 70 70 Respiratory 17 16 19 Rate Blood Pressure 140/73 153/74 142/75 O2 Sat by Pulse 96 94 L Oximetry 01/05/23 01/05/23 01/05/23 07:18 07:26 07:35 Temperature 98.3 F Pulse Rate 72 70 72 Respiratory 20 Rate Blood Pressure 136/69 O2 Sat by Pulse 95 Oximetry 01/05/23 01/05/23 01/05/23 08:15 08:36 09:00 Temperature Pulse Rate 63 70 Respiratory 26 H 20 Rate Blood Pressure 122/62 127/90 O2 Sat by Pulse 88 L 94 L 95 Oximetry 01/05/23 01/05/23 01/05/23 10:10 10:44 10:53 Temperature Pulse Rate 70 72 72 Respiratory 20 Rate Blood Pressure 118/90 O2 Sat by Pulse 92 L Oximetry 01/05/23 01/05/23 01/05/23 10:59 14:28 15:03 Temperature Pulse Rate 70 72 73 Respiratory 20 18 Rate Blood Pressure 139/64 135/74 O2 Sat by Pulse 97 93 L Oximetry 01/05/23 16:36 Temperature Pulse Rate 74 Respiratory 18 Rate Blood Pressure 130/84 O2 Sat by Pulse 97 Oximetry Medical Decision Making - Medical Decision Making This patient is a 77-year-old woman here with dyspnea, predominantly orthopnea/dyspnea on exertion, that is progressively worsening over past approximately 2 weeks. There appears to be mainly CHF but also component of COPD underlying. We'll admit patient to have diuresis and continue nebulized treatments. Was pt. sent in by a medical professional or institution (, PA, OIL CHANGER, urgent c are, hospital, or senior living...) When possible be specific @ -[No] Did you speak to anyone other than the patient for history (EMS, parent, family, police, friend...)? What history was obtained from this source @ -[No] Did you review nursing and triage notes (agree or disagree)? Why? @ -[I reviewed and agree with nursing and triage notes] Were old charts reviewed (outside hosp., previous admission, EMS record, old EKG, old radiological studies, urgent care reports/EKG's, senior living records)? Report findings @ -old charts were reviewed] Differential Diagnosis (chest pain, altered mental status, abdominal pain women, abdominal pain men, vaginal bleeding, weakness, fever, dyspnea, syncope, headache, dizziness, GI bleed, back pain, seizure, CVA, palpatations, mental health, musculoskeletal)? @ -[Differential Dyspnea: Coronary syndrome, arrhythmia, tamponade, asthma, COPD, pulmonary embolism, pneumonia, pneumothorax, pulmonary effusion, anaphylaxis, diabetic ketoacidosis, flailed chest, pulmonary contusion, diaphragmatic rupture, anemia, neuromuscular, this is not meant to be an all-inclusive list. EKG interpreted by me (3pts min.). @ -[As above] X-rays interpreted by me (1pt min.). @ -[As above CT interpreted by me (1pt min.). @ -[None done] U/S interpreted by me (1pt. min.). @ -[None done] What testing was considered but not performed or refused? (CT, X-rays, U/S, labs)? Why? @ -[None] What meds were considered but not given or refused? Why? @ -[None] Did you discuss the management of the patient with other professionals (professionals i.e. , PA, OIL CHANGER, lab, RT, psych nurse, social sciences lecturer, public relations coordinator, teacher, aeronautical engineering officer, caser up)? Give summary @ -[Case discussed with admitting physician Was smoking cessation discussed for >3mins.? @ -[No] Was critical care preformed (if so, how long)? @ -[No] Were there social determinants of health that impacted care today? How? (Homelessness, low income, unemployed, alcoholism, drug addiction, transportation, low edu. Level, literacy, decrease access to med. care, snf, rehab)? @ -[No] Was there de-escalation of care discussed even if they declined (Discuss DNR or withdrawal of care, Hospice)? DNR status @ -[No] What co-morbidities impacted this encounter? (DM, HTN, Smoking, COPD, CAD, Cancer, CVA, ARF, Chemo, Hep., AIDS, mental health diagnosis, sleep apnea, morbid obesity)? @ -[None] Was patient admitted / discharged? Hospital course, mention meds given and rou te, prescriptions, significant lab abnormalities, going to OR and other pertinent info. @ -[Patient is admitted for diuretic therapy and cardiology consultation Undiagnosed new problem with uncertain prognosis? @ -[No] Drug Therapy requiring intensive monitoring for toxicity (Heparin, Nitro, Insulin, Cardizem)? @ -[No] Were any procedures done? @ -[No] Diagnosis/symptom? @ -[Acute exacerbation of congestive heart failure Acute on chronic COPD Acute, or Chronic, or Acute on Chronic? @ -[Acute on chronic conditions Uncomplicated (without systemic symptoms) or Complicated (systemic symptoms)? @ -[Uncomplicated Side effects of treatment? @ -[No] Exacerbation, Progression, or Severe Exacerbation? @ -[No] Poses a threat to life or bodily function? How? (Chest pain, USA, MS, pneumonia, PE, COPD, DKA, ARF, appy, cholecystitis, CVA, Diverticulitis, Homicidal, Suicidal, threat to staff... and all critical care pts) @ -[Untreated congestive heart failure may progress to pulmonary edema/respiratory failure and - Lab Data Result diagrams: 01/06/23 06:44 01/06/23 06:44 Lab Results 01/04/23 01/04/23 01/04/23 Range/Units 20:20 20:20 20:20 WBC 8.0 (3.8-10.6) k/uL RBC 3.60 L (3.80-5.40) m/uL Hgb 10.5 L (11.4-16.0) gm/dL Hct 33.4 L (34.0-46.0) % MCV 92.7 (80.0-100.0) fL MCH 29.2 (25.0-35.0) pg MCHC 31.5 (31.0-37.0) g/dL RDW 14.8 (11.5-15.5) % Plt Count 251 (150-450) k/uL MPV 7.8 Neutrophils % 66 % Lymphocytes % 17 % Monocytes % 6 % Eosinophils % 10 % Basophils % 0 % Neutrophils # 5.2 (1.3-7.7) k/uL Lymphocytes # 1.4 (1.0-4.8) k/uL Monocytes # 0.4 (0-1.0) k/uL Eosinophils # 0.8 H (0-0.7) k/uL Basophils # 0.0 (0-0.2) k/uL Hypochromasia Moderate PT 10.9 (9.0-12.0) sec INR 1.0 (<1.2) APTT 26.5 (22.0-30.0) sec D-Dimer 0.35 (<0.60) mg/L FEU Sodium 141 (137-145) mmol/L Potassium 4.4 (3.5-5.1) mmol/L Chloride 93 L (98-107) mmol/L Carbon Dioxide 43 H* (22-30) mmol/L Anion Gap 5 mmol/L BUN 31 H (7-17) mg/dL Creatinine 1.42 H (0.52-1.04) mg/dL Est GFR (CKD-EPI)AfAm 41 (>60 ml/min/1.73 sqM) Est GFR (CKD-EPI)NonAf 36 (>60 ml/min/1.73 sqM) Glucose 120 H (74-99) mg/dL Plasma Lactic Acid Cliff (0.7-2.0) mmol/L Calcium 9.0 (8.4-10.2) mg/dL Magnesium 2.3 (1.6-2.3) mg/dL Total Bilirubin 0.8 (0.2-1.3) mg/dL AST 22 (14-36) U/L ALT 16 (4-34) U/L Alkaline Phosphatase 91 (38-126) U/L Troponin I (0.000-0.034) ng/mL NT-Pro-B Natriuret Pep pg/mL Total Protein 6.7 (6.3-8.2) g/dL Albumin 3.6 (3.5-5.0) g/dL 01/04/23 01/04/23 01/04/23 Range/Units 20:20 20:20 20:20 WBC (3.8-10.6) k/uL RBC (3.80-5.40) m/uL Hgb (11.4-16.0) gm/dL Hct (34.0-46.0) % MCV (80.0-100.0) fL MCH (25.0-35.0) pg MCHC (31.0-37.0) g/dL RDW (11.5-15.5) % Plt Count (150-450) k/uL MPV Neutrophils % % Lymphocytes % % Monocytes % % Eosinophils % % Basophils % % Neutrophils # (1.3-7.7) k/uL Lymphocytes # (1.0-4.8) k/uL Monocytes # (0-1.0) k/uL Eosinophils # (0-0.7) k/uL Basophils # (0-0.2) k/uL Hypochromasia PT (9.0-12.0) sec INR (<1.2) APTT (22.0-30.0) sec D-Dimer (<0.60) mg/L FEU Sodium (137-145) mmol/L Potassium (3.5-5.1) mmol/L Chloride (98-107) mmol/L Carbon Dioxide (22-30) mmol/L Anion Gap mmol/L BUN (7-17) mg/dL Creatinine (0.52-1.04) mg/dL Est GFR (CKD-EPI)AfAm (>60 ml/min/1.73 sqM) Est GFR (CKD-EPI)NonAf (>60 ml/min/1.73 sqM) Glucose (74-99) mg/dL Plasma Lactic Acid Cliff 1.4 (0.7-2.0) mmol/L Calcium (8.4-10.2) mg/dL Magnesium (1.6-2.3) mg/dL Total Bilirubin (0.2-1.3) mg/dL AST (14-36) U/L ALT (4-34) U/L Alkaline Phosphatase (38-126) U/L Troponin I 0.045 H* (0.000-0.034) ng/mL NT-Pro-B Natriuret Pep 7160 pg/mL Total Protein (6.3-8.2) g/dL Albumin (3.5-5.0) g/dL - EKG Data -: EKG Interpreted by Me EKG shows normal: QRS complexes (Paced rhythm) Rate: normal (70 bpm) Interpretation: other (The rhythm is paced at a rate of 70 bpm) Disposition Clinical Impression: Congestive heart failure, COPD (chronic obstructive pulmonary disease), Elevated troponin Disposition: ADMITTED IP TO THIS HOSP Condition: Stable Is patient prescribed a controlled substance at d/c from ED?: No
[2023-01-04 20:40] LABS: Basophils % (A) 0 %; Eosinophils # (A) 0.8 k/uL (0-0.7); Eosinophils % (A) 10 %; HCT 33.4 % (34.0-46.0); HGB 10.5 gm/dL (11.4-16.0); Hypochromasia Moderate; Lymphocytes # (A) 1.4 k/uL (1.0-4.8); Lymphocytes % (A) 17 %; MCH 29.2 pg (25.0-35.0); MCHC 31.5 g/dL (31.0-37.0); MCV 92.7 fL (80.0-100.0); Mean Platelet Volume 7.8; Monocytes # (A) 0.4 k/uL (0-1.0); Monocytes % (A) 6 %; Neutrophils # (A) 5.2 k/uL (1.3-7.7); Neutrophils % (A) 66 %; Platelet Count 251 k/uL (150-450); RDW 14.8 % (11.5-15.5)
[2023-01-04 20:58] LABS: Partial Thromboplastin Time 26.5 sec (22.0-30.0); Prothrombin Time 10.9 sec (9.0-12.0)
[2023-01-04 21:21] LABS: ALT 16 U/L (4-34); AST 22 U/L (14-36); African American GFR (CKD) 41 (>60 ml/min/1.73 sqM); Albumin 3.6 g/dL (3.5-5.0); Alkaline Phosphatase 91 U/L (38-126); Blood Urea Nitrogen 31 mg/dL (7-17); Chloride 93 mmol/L (98-107); Glucose 120 mg/dL (74-99); Magnesium 2.3 mg/dL (1.6-2.3); Non-African American GFR(CKD) 36 (>60 ml/min/1.73 sqM); Potassium 4.4 mmol/L (3.5-5.1); Sodium 141 mmol/L (137-145); Total Bilirubin 0.8 mg/dL (0.2-1.3); Total Protein 6.7 g/dL (6.3-8.2)
[2023-01-04 21:27] LABS: Anion Gap 5 mmol/L
--- NOTE | 2023-01-04 21:31 | XR ---
EXAMINATION TYPE: XR chest 2V DATE OF EXAM: 01/04/2023 9:22 PM COMPARISON: Chest radiographs from 11/17/2022 TECHNIQUE: XR chest 2V Frontal and lateral views of the chest. CLINICAL INDICATION:Female, 77 years old with history of difficulty breathing; FINDINGS: Lungs/Pleura: No evidence of focal consolidation or pneumothorax. Blunting of the costophrenic angles is present. Pulmonary vascularity: Pulmonary vascular congestion. Heart/mediastinum: Cardiomediastinal silhouette is enlarged and stable. Two lead cardiac conduction d evice overlying the left hemithorax with lead tips projecting over the right ventricle and right atri um. Musculoskeletal: No acute osseous pathology. IMPRESSION: No acute cardiopulmonary disease/process.
[2023-01-04 21:36] LABS: Carbon Dioxide 43 mmol/L (22-30)
[2023-01-04] MEDS ORDERED: ALBUTEROL NEBULIZED 2.5 MG/3 ML INHALATION PRN (23:25)
[2023-01-04] MEDS ORDERED: IPRATROPIUM-ALBUTEROL 3 ML NEB INHALATION PRN (23:25)
[2023-01-04] MEDS ORDERED: predniSONE 10 MG TAB PO SCH (23:30)
[2023-01-04] MEDS: FUROSEMIDE 10 MG/ML 4 ML VIAL IV SCH (23:36)
[2023-01-05 00:01] LABS: VBG PH 7.41 (7.31-7.41)
[2023-01-05] MEDS: IPRATROPIUM 0.5 MG/2.5 ML NEBU INHALATION SCH ×4 (07:17→21:14)
[2023-01-05] MEDS: SYMBICORT 160-4.5 MCG INHALER INHALATION SCH ×2 (07:17→21:12)
[2023-01-05] MEDS: POTASSIUM CHLORIDE ER 20 MEQ TAB.ER PO SCH (08:39)
[2023-01-05] MEDS: PANTOPRAZOLE 40 MG TABLET PO SCH ×3 (08:39→20:54)
[2023-01-05] MEDS: APIXABAN 5 MG TAB PO SCH ×2 (08:39→20:23)
[2023-01-05] MEDS: FERROUS SULFATE 325 MG TAB PO SCH (08:40)
[2023-01-05] MEDS: IPRATROPIUM-ALBUTEROL 3 ML NEB INHALATION PRN ×3 (10:44→21:12)
[2023-01-05] MEDS: FUROSEMIDE 10 MG/ML 4 ML VIAL IV SCH ×2 (10:58→22:13)
--- NOTE | 2023-01-05 12:56 | P.HPIM ---
History of Present Illness 77-year-old the female with history of COPD as well as CHF came in with comments of shortness of breath patient is an elevated BNP of 5000 chest x-ray showed some mild pulmonary edema patient does have JVD patient also wheezing patient is both in COPD as well as CHF exacerbation. Patient mostly has right-sided heart failure chronic cor pulmonale with right-sided heart failure exacerbation at this time patient will is on Lasix which will be continued patient is on inhaled steroids and inhalational treatments which will continue without any systemic steroids and will will be monitored. Patient takes 40 mg of Lasix twice a day at home. Patient baseline creatinine around 1.7 but her creatinine on this hospital physician is 1.42 which is actually better than her baseline patient has minimally elevated troponins for 0.073 secondary to chronic kidney disease REVIEW OF SYSTEMS: CONSTITUTIONAL: No fever, no malaise, no fatigue. HEENT: No recent visual problems or hearing problems. Denied any sore throat. CARDIOVASCULAR: No chest pain, orthopnea, PND, no palpitations, no syncope. PULMONARY: Patient is comparing of shortness of breath, without any sputum production GASTROINTESTINAL: No diarrhea, no nausea, no vomiting, no abdominal pain. NEUROLOGICAL: No headaches, no weakness, no numbness. HEMATOLOGICAL: Denies any bleeding or petechiae. GENITOURINARY: Denies any burning micturition, frequency, or urgency. MUSCULOSKELETAL/RHEUMATOLOGICAL: Denies any joint pain, swelling, or any muscle pain. ENDOCRINE: Denies any polyuria or polydipsia. The rest of the 14-point review of systems is negative. PHYSICAL EXAMINATION: GENERAL: The patient is alert and oriented x3, not in any acute distress. Well developed, well nourished. HEENT: Pupils are round and equally reacting to light. EOMI. No scleral icterus. No conjunctival pallor. Normocephalic, atraumatic. No pharyngeal erythema. No thyromegaly. CARDIOVASCULAR: S1 and S2 present. No murmurs, rubs, or gallops. Patient does have elevated JVD PULMONARY: Expiratory wheezing ABDOMEN: Soft, nontender, nondistended, normoactive bowel sounds. No palpable organomegaly. MUSCULOSKELETAL: No joint swelling or deformity. EXTREMITIES: No cyanosis, clubbing, or pedal edema. NEUROLOGICAL: Gross neurological examination did not reveal any focal deficits. SKIN: No rashes. Assessment and plan COPD with acute exacerbation patient will be continued on his steroids inhalational treatments patient has acute on chronic hypoxic and hypercapnic respiratory failure secondary to COPD exacerbation was used with his apartment presently on 5 L of oxygen. -Patient heart failure chronic diastolic dysfunction with acute exacerbation. Patient does have a right-sided heart failure chronic pulmonary with acute right-sided heart failure exacerbation. Patient will be continued on IV Lasix. -Chronic respiratory failure secondary to COPD and emphysema -Proximal atrial fibrillation: Presently rate controlled continue with home medications and anticoagulation GERD DVT prophylaxis: On anticoagulation which will be continued Past Medical History Past Medical History: Atrial Fibrillation, Asthma, Cancer, Heart Failure, COPD, GERD/Reflux, Skin Disorder Additional Past Medical History / Comment(s): COPD, asthma, breast cancer-right lumpectomy and radiation therapy 25 years ago, wears 3L NC at home, chronic atrial fibrillation, CHF (systolic ). Arthritis, dry patch on right leg, gout History of Any Multi-Drug Resistant Organisms: None Reported Past Surgical History: Section, Heart Catheterization, Hernia Repair, Pacemaker Additional Past Surgical History / Comment(s): left hand surgery for broken index and middle finger Past Anesthesia/Blood Transfusion Reactions: No Reported Reaction Type of Cardiac Device: Permanent Pacemaker Device Placement Date:: 07/2021 Past Psychological History: Depression Smoking Status: Former smoker - Past Family History Mother Family Medical History: Diabetes Mellitus Medications and Allergies Home Medications Medication Instructions Recorded Confirmed Type Apixaban [Eliquis] 5 mg PO BID 11/12/22 01/05/23 History Cholecalciferol [Vitamin D3 (25 150 mcg PO DAILY 11/12/22 01/05/23 History Mcg = 1000 Iu)] Colchicine 0.6 mg PO TUTH 11/12/22 01/05/23 History Ferrous Sulfate [Iron (65 MG 325 mg PO DAILY 11/12/22 01/05/23 History Elemental)] Fexofenadine HCl [Jamee Allergy] 180 mg PO HS 11/12/22 01/05/23 History Fluticasone Propion/Salmeterol 1 puff INHALATION RT-BID 11/12/22 01/05/23 History [Advair 500-50 Diskus] Ipratropium/Albuter 20-100Mcg 1 puff INHALATION RT-QID PRN 11/12/22 01/05/23 History [Combivent Respimat 20-100Mcg Inhaler] Magnesium Oxide [Mag-Ox] 400 mg PO DAILY 11/12/22 01/05/23 History Metoprolol Succinate [Metoprolol 75 mg PO HS 11/12/22 01/05/23 History Succinate ER] Montelukast [Singulair] 10 mg PO HS 11/12/22 01/05/23 History Pantoprazole [Protonix] 40 mg PO BID 11/12/22 01/05/23 History Potassium Chloride ER [K-Dur 20] 20 meq PO DAILY 11/12/22 01/05/23 History Power C Supplement 2 tab PO DAILY 11/12/22 01/05/23 History Tiotropium [place] [Spiriva 18 mcg INHALATION RT-DAILY 11/12/22 01/05/23 History Handihaler] Vitamin B Complex 1 cap PO DAILY 11/12/22 01/05/23 History allopurinoL [Zyloprim] 150 mg PO DAILY 11/12/22 01/05/23 History Albuterol Inhaler [Ventolin Hfa 2 puff INHALATION RT-QID PRN #1 11/19/22 01/05/23 Rx Inhaler] each Furosemide [Lasix] 40 mg PO BID@0900,1600 #60 tab 11/19/22 01/05/23 Rx Ipratropium-Albuterol Nebulize 3 ml INHALATION RT-QID PRN #1 each 11/19/22 01/05/23 Rx [Duoneb 0.5 mg-3 mg/3 ml Soln] Allergies Allergy/AdvReac Type Severity Reaction Status Date / Time aspirin Allergy Anaphylaxis Verified 01/05/23 08:37 ibuprofen Allergy Anaphylaxis Verified 01/05/23 08:37 Physical Exam Vitals: Vital Signs Temp Pulse Resp BP Pulse Ox 01/05/23 10:59 70 20 139/64 97 01/05/23 10:53 72 01/05/23 10:44 72 01/05/23 10:10 70 20 118/90 92 L 01/05/23 09:00 70 20 127/90 95 01/05/23 08:36 94 L 01/05/23 08:15 63 26 H 122/62 88 L 01/05/23 07:35 72 01/05/23 07:26 98.3 F 70 20 136/69 95 01/05/23 07:18 72 06/15/23 06:00 70 19 142/75 94 L 01/05/23 05:00 70 16 153/74 96 01/05/23 04:00 70 17 140/73 01/05/23 03:19 70 22 133/70 95 01/05/23 00:02 70 22 110/60 94 L 01/04/23 22:06 70 22 119/59 92 L Intake and Output 01/04/23 01/05/23 01/05/23 22:59 06:59 14:59 Output Total 350 Balance -350 Output: Urine 350 Other: Weight 79.832 kg Results CBC & Chem 7: 01/04/23 20:20 01/04/23 20:20 Labs: Abnormal Lab Results - Last 24 Hours (Table) 01/04/23 01/04/23 01/04/23 Range/Units 20:20 20:20 20:20 RBC 3.60 L (3.80-5.40) m/uL Hgb 10.5 L (11.4-16.0) gm/dL Hct 33.4 L (34.0-46.0) % Eosinophils # 0.8 H (0-0.7) k/uL VBG pCO2 (37-51) mmHg VBG HCO3 (24-28) mmol/L Chloride 93 L (98-107) mmol/L Carbon Dioxide 43 H* (22-30) mmol/L BUN 31 H (7-17) mg/dL Creatinine 1.42 H (0.52-1.04) mg/dL Glucose 120 H (74-99) mg/dL Troponin I 0.045 H* (0.000-0.034) ng/mL 01/04/23 01/04/23 01/05/23 Range/Units 23:39 23:39 04:13 RBC (3.80-5.40) m/uL Hgb (11.4-16.0) gm/dL Hct (34.0-46.0) % Eosinophils # (0-0.7) k/uL VBG pCO2 72 H* (37-51) mmHg VBG HCO3 44 H (24-28) mmol/L Chloride (98-107) mmol/L Carbon Dioxide (22-30) mmol/L BUN (7-17) mg/dL Creatinine (0.52-1.04) mg/dL Glucose (74-99) mg/dL Troponin I 0.066 H* 0.073 H* (0.000-0.034) ng/mL
--- NOTE | 2023-01-05 13:30 | P.CRDCN ---
History of Present Illness History of present illness: HISTORY OF PRESENT ILLNESS: This is a 77-year-old female with a past medical history significant for atrial fibrillation, COPD, congestive heart failure, permanent pacemaker implantation, nonobstructive coronary artery disease. Patient used to follow with Dr. Palacio but states she has an appointment to establish care locally with Dr. Castro. We have been asked to see the patient in consultation for congestive heart failure. Patient examined at the bedside. Patient presented to the hospital with a chief complaint of shortness of breath. She states her shortness of breath started yesterday. She denies having any chest pain or pressure. The patient was found to be in acute heart failure and was started on IV Lasix. Vital signs remain stable. * EKG reveals paced rhythm with underlying atrial fibrillation * Chest xray negative for acute process * Laboratory data: W BC 8.0. Hemoglobin 10.5. Platelet count 251. Sodium 141. Potassium 4.4. BUN 31. Creatinine 1.42. Troponin 0.045. 0.066. 0.073. ProBNP 7160. * Current home cardiac medications include Eliquis 5 mg twice a day, Lasix 40 mg twice a day, metoprolol succinate 75 mg at night * Most recent echocardiogram obtained in October 2022 revealed ejection fraction 50%, severe pulmonary hypertension, moderate tricuspid regurgitation, and mild aortic stenosis REVIEW OF SYSTEMS: At the time of my exam: CONSTITUTIONAL: Denies fever or chills. HEENT: Denies blurred vision, vision changes, or eye pain. Denies hemoptysis CARDIOVASCULAR: Denies chest pain. Denies orthopnea. Denies PND. Denies palpitations RESPIRATORY: Denies shortness of breath. GASTROINTESTINAL: Denies abdominal pain. Denies nausea or vomiting. HEMATOLOGIC: Denies bleeding disorders. GENITOURINARY: Denies any blood in urine. SKIN: Denies pruitis. Denies rash. PHYSICAL EXAM: VITAL SIGNS: Reviewed. GENERAL: Well-developed in no acute distress. HEENT: Head is normocephalic. Pupils are equal, round. Sclerae anicteric. Mucous membranes of the mouth are moist. Neck supple. No JVD or thyromegaly LUNGS: Respirations even and unlabored. Lungs diminished bilaterally with wheezing noted. HEART: Regular rate and rhythm. S1 and S2 heard. Systolic murmur noted. ABDOMEN: Soft. Nondistended. Nontender. EXTREMITIES: Normal range of motion. No clubbing or cyanosis. Peripheral pulses intact. 1+ bilateral lower extremity edema NEUROLOGIC: Awake and alert. Oriented x 3. ASSESSMENT: Shortness of breath Acute on chronic heart failure with preserved ejection fraction, 50% Severe pulmonary hypertension Permanent atrial fibrillation History of pacemaker implantation History of COPD with home oxygen use Nonobstructive coronary artery disease, per patient, cath report not available for review PLAN: No need to repeat echocardiogram as this was performed in October 2022 Resume home cardiac medications Continue IV Lasix Daily weights, accurate I&O, and monitoring of kidney function Further recommendations pending patient course Nurse practitioner note has been reviewed by physician. Signing provider agrees with the documented findings, assessment, and plan of care. Past Medical History Past Medical History: Atrial Fibrillation, Asthma, Cancer, Heart Failure, COPD, GERD/Reflux, Skin Disorder Additional Past Medical History / Comment(s): COPD, asthma, breast cancer-right lumpectomy and radiation therapy 25 years ago, wears 3L NC at home, chronic atrial fibrillation, CHF (systolic ). Arthritis, dry patch on right leg, gout History of Any Multi-Drug Resistant Organisms: None Reported Past Surgical History: Section, Heart Catheterization, Hernia Repair, Pacemaker Additional Past Surgical History / Comment(s): left hand surgery for broken index and middle finger Past Anesthesia/Blood Transfusion Reactions: No Reported Reaction Type of Cardiac Device: Permanent Pacemaker Device Placement Date:: 07/2021 Past Psychological History: Depression Smoking Status: Former smoker - Past Family History Mother Family Medical History: Diabetes Mellitus Medications and Allergies Home Medications Medication Instructions Recorded Confirmed Type Apixaban [Eliquis] 5 mg PO BID 11/12/22 01/05/23 History Cholecalciferol [Vitamin D3 (25 150 mcg PO DAILY 11/12/22 01/05/23 History Mcg = 1000 Iu)] Colchicine 0.6 mg PO TUTH 11/12/22 01/05/23 History Ferrous Sulfate [Iron (65 MG 325 mg PO DAILY 11/12/22 01/05/23 History Elemental)] Fexofenadine HCl [Jamee Allergy] 180 mg PO HS 11/12/22 01/05/23 History Fluticasone Propion/Salmeterol 1 puff INHALATION RT-BID 11/12/22 01/05/23 History [Advair 500-50 Diskus] Ipratropium/Albuter 20-100Mcg 1 puff INHALATION RT-QID PRN 11/12/22 01/05/23 Hi story [Combivent Respimat 20-100Mcg Inhaler] Magnesium Oxide [Mag-Ox] 400 mg PO DAILY 11/12/22 01/05/23 History Metoprolol Succinate [Metoprolol 75 mg PO HS 11/12/22 01/05/23 History Succinate ER] Montelukast [Singulair] 10 mg PO HS 11/12/22 01/05/23 History Pantoprazole [Protonix] 40 mg PO BID 11/12/22 01/05/23 History Potassium Chloride ER [K-Dur 20] 20 meq PO DAILY 11/12/22 01/05/23 History Power C Supplement 2 tab PO DAILY 11/12/22 01/05/23 History Tiotropium [place] [Spiriva 18 mcg INHALATION RT-DAILY 11/12/22 01/05/23 History Handihaler] Vitamin B Complex 1 cap PO DAILY 11/12/22 01/05/23 History allopurinoL [Zyloprim] 150 mg PO DAILY 11/12/22 01/05/23 History Albuterol Inhaler [Ventolin Hfa 2 puff INHALATION RT-QID PRN #1 11/19/22 01/05/23 Rx Inhaler] each Furosemide [Lasix] 40 mg PO BID@0900,1600 #60 tab 11/19/22 01/05/23 Rx Ipratropium-Albuterol Nebulize 3 ml INHALATION RT-QID PRN #1 each 11/19/22 01/05/23 Rx [Duoneb 0.5 mg-3 mg/3 ml Soln] Allergies Allergy/AdvReac Type Severity Reaction Status Date / Time aspirin Allergy Anaphylaxis Verified 01/05/23 08:37 ibuprofen Allergy Anaphylaxis Verified 01/05/23 08:37 Physical Exam Vitals: Vital Signs Temp Pulse Resp BP Pulse Ox 01/05/23 10:59 70 20 139/64 97 01/05/23 10:53 72 01/05/23 10:44 72 01/05/23 10:10 70 20 118/90 92 L 01/05/23 09:00 70 20 127/90 95 01/05/23 08:36 94 L 01/05/23 08:15 63 26 H 122/62 88 L 01/05/23 07:35 72 01/05/23 07:26 98.3 F 70 20 136/69 95 01/05/23 07:18 72 01/05/23 06:00 70 19 142/75 94 L 01/05/23 05:00 70 16 153/74 96 01/05/23 04:00 70 17 140/73 01/05/23 03:19 70 22 133/70 95 01/05/23 00:02 70 22 110/60 94 L 01/04/23 22:06 70 22 119/59 92 L Intake and Output 01/04/23 01/05/23 01/05/23 22:59 06:59 14:59 Output Total 200 Balance -200 Output: Urine 200 Other: Weight 79.832 kg Results 01/04/23 20:20 01/04/23 20:20 Cardiac Enzymes 01/04/23 01/04/23 01/04/23 Range/Units 20:20 20:20 23:39 AST 22 (14-36) U/L Troponin I 0.045 H* 0.066 H* (0.000-0.034) ng/mL 01/05/23 Range/Units 04:13 AST (14-36) U/L Troponin I 0.073 H* (0.000-0.034) ng/mL Coagulation 01/04/23 Range/Units 20:20 PT 10.9 (9.0-12.0) sec APTT 26.5 (22.0-30.0) sec CBC 01/04/23 Range/Units 20:20 WBC 8.0 (3.8-10.6) k/uL RBC 3.60 L (3.80-5.40) m/uL Hgb 10.5 L (11.4-16.0) gm/dL Hct 33.4 L (34.0-46.0) % Plt Count 251 (150-450) k/uL Comprehensive Metabolic Panel 01/04/23 Range/Units 20:20 Sodium 141 (137-145) mmol/L Potassium 4.4 (3.5-5.1) mmol/L Chloride 93 L (98-107) mmol/L Carbon Dioxide 43 H* (22-30) mmol/L BUN 31 H (7-17) mg/dL Creatinine 1.42 H (0.52-1.04) mg/dL Glucose 120 H (74-99) mg/dL Calcium 9.0 (8.4-10.2) mg/dL AST 22 (14-36) U/L ALT 16 (4-34) U/L Alkaline Phosphatase 91 (38-126) U/L Total Protein 6.7 (6.3-8.2) g/dL Albumin 3.6 (3.5-5.0) g/dL Current Medications Generic Name Dose Route Start Last Admin Trade Name Freq PRN Reason Stop Dose Admin Albuterol/Ipratropium 3 ml 01/05/23 07:33 01/05/23 10:44 Ipratropium-Albuterol 3 Ml Neb INHALATION 3 ml RT-QID PRN Administration Shortness Of Breath Apixaban 5 mg 01/05/23 09:00 01/05/23 08:39 Apixaban 5 Mg Tab PO 5 mg BID OANH Administration Protocol Budesonide/Formoterol Fumarate 2 puff 01/05/23 08:00 01/05/23 07:17 Symbicort 160-4.5 Mcg Inhaler INHALATION 2 puff RT-BID OANH Administration Ferrous Sulfate 325 mg 01/05/23 09:00 01/05/23 08:40 Ferrous Sulfate 325 Mg Tab PO 325 mg DAILY OANH Administration Furosemide 40 mg 01/04/23 23:30 01/05/23 10:58 Furosemide 10 Mg/Ml 4 Ml Vial IV 40 mg Q12H OANH Administration Ipratropium [place] 0.5 mg 01/05/23 08:00 01/05/23 10:44 Ipratropium 0.5 Mg/2.5 Ml Nebu INHALATION Not Given RT-QID OANH Metoprolol Succinate 75 mg 01/05/23 21:00 Metoprolol Succinate (Er) 25 Mg Tab.Er.24h PO HS OANH Montelukast Sodium 10 mg 01/05/23 21:00 Montelukast 10 Mg Tab PO HS OANH Pantoprazole Sodium 40 mg 01/05/23 07:30 01/05/23 08:39 Pantoprazole 40 Mg Tablet PO 40 mg AC-BID OANH Administration Potassium Chloride 20 meq 01/05/23 09:00 01/05/23 08:39 Potassium Chloride Er 20 Meq Tab.Er PO 20 meq DAILY OANH Administration Sodium Chloride 10 ml 01/05/23 09:00 01/05/23 08:40 Sodium Chloride 0.9% Flush 10 Ml Syringe IV 10 ml BID OANH Administration Intake and Output 01/04/23 01/05/23 01/05/23 22:59 06:59 14:59 Output Total 200 Balance -200 Output: Urine 200 Other: Weight 79.832 kg 01/04/23 20:20 01/04/23 20:20
[2023-01-05] MEDS ORDERED: MONTELUKAST 10 MG TAB PO SCH (21:00)
[2023-01-05] MEDS ORDERED: METOPROLOL SUCCINATE (ER) 25 MG TAB.ER.24H PO SCH (21:00)
[2023-01-05 22:36] VITALS: RESP 18
[2023-01-06] MEDS: PANTOPRAZOLE 40 MG TABLET PO SCH (06:31)
[2023-01-06 07:02] LABS: HGB 10.5 gm/dL (11.4-16.0); Hypochromasia Moderate; MCH 29.7 pg (25.0-35.0); MCHC 31.9 g/dL (31.0-37.0); MCV 92.9 fL (80.0-100.0); Mean Platelet Volume 7.8; Platelet Count 257 k/uL (150-450); RBC 3.55 m/uL (3.80-5.40); RDW 15.1 % (11.5-15.5)
[2023-01-06 07:11] LABS: ALT 16 U/L (4-34); AST 25 U/L (14-36); African American GFR (CKD) 36 (>60 ml/min/1.73 sqM); Albumin 3.4 g/dL (3.5-5.0); Alkaline Phosphatase 81 U/L (38-126); Blood Urea Nitrogen 30 mg/dL (7-17); Chloride 91 mmol/L (98-107); Glucose 105 mg/dL (74-99); Non-African American GFR(CKD) 31 (>60 ml/min/1.73 sqM); Potassium 4.4 mmol/L (3.5-5.1); Sodium 140 mmol/L (137-145); Total Bilirubin 1.2 mg/dL (0.2-1.3); Total Protein 6.5 g/dL (6.3-8.2)
[2023-01-06 07:17] LABS: Anion Gap 5 mmol/L
[2023-01-06 07:27] LABS: Carbon Dioxide 44 mmol/L (22-30)
[2023-01-06] MEDS: POTASSIUM CHLORIDE ER 20 MEQ TAB.ER PO SCH (08:14)
[2023-01-06] MEDS: FERROUS SULFATE 325 MG TAB PO SCH (08:14)
[2023-01-06] MEDS: APIXABAN 5 MG TAB PO SCH (08:14)
[2023-01-06] MEDS: IPRATROPIUM-ALBUTEROL 3 ML NEB INHALATION PRN ×3 (08:25→15:21)
[2023-01-06] MEDS: SYMBICORT 160-4.5 MCG INHALER INHALATION SCH (08:25)
[2023-01-06] MEDS: IPRATROPIUM 0.5 MG/2.5 ML NEBU INHALATION SCH ×3 (09:37→15:21)
[2023-01-06 12:17] VITALS: BP 121/74; TEMP 97.5
[2023-01-06 12:54] VITALS: BMI 32.6
--- NOTE | 2023-01-06 13:09 | P.PN ---
Subjective HISTORY OF PRESENT ILLNESS: This is a 77-year-old female with a past medical history significant for atrial fibrillation, COPD, congestive heart failure, permanent pacemaker implantation, nonobstructive coronary artery disease. Patient used to follow with Dr. Palacio but states she has an appointment to establish care locally with Dr. Castro. We have been asked to see the patient in consultation for congestive heart fa ilure. Patient examined at the bedside. Patient presented to the hospital with a chief complaint of shortness of breath. She states her shortness of breath started yesterday. She denies having any chest pain or pressure. The patient was found to be in acute heart failure and was started on IV Lasix. Vital signs remain stable. * EKG reveals paced rhythm with underlying atrial fibrillation * Chest xray negative for acute process * Laboratory data: W BC 8.0. Hemoglobin 10.5. Platelet count 251. Sodium 141. Potassium 4.4. BUN 31. Creatinine 1.42. Troponin 0.045. 0.066. 0.073. ProBNP 7160. * Current home cardiac medications include Eliquis 5 mg twice a day, Lasix 40 mg twice a day, metoprolol succinate 75 mg at night * Most recent echocardiogram obtained in October 2022 revealed ejection fraction 50%, severe pulmonary hypertension, moderate tricuspid regurgitation, and mild aortic stenosis 01/06/2023 Patient examined this morning at the bedside. Patient denies chest pain or pressure. She reports improvement in her shortness of breath. She has been transitioned to oral Lasix per primary medicine. PHYSICAL EXAM: VITAL SIGNS: Reviewed. GENERAL: Well-developed in no acute distress. HEENT: Head is normocephalic. Pupils are equal, round. Sclerae anicteric. Mucous membranes of the mouth are moist. Neck supple. No JVD or thyromegaly LUNGS: Respirations even and unlabored. Lungs diminished bilaterally. HEART: Regular rate and rhythm. S1 and S2 heard. Systolic murmur noted. ABDOMEN: Soft. Nondistended. Nontender. EXTREMITIES: Normal range of motion. No clubbing or cyanosis. Peripheral pulses intact. 1+ bilateral lower extremity edema NEUROLOGIC: Awake and alert. Oriented x 3. ASSESSMENT: Shortness of breath Acute on chronic heart failure with preserved ejection fraction, 50% Severe pulmonary hypertension Permanent atrial fibrillation History of pacemaker implantation History of COPD with home oxygen use Nonobstructive coronary artery disease, per patient, cath report not available for review PLAN: No need to repeat echocardiogram as this was performed in October 2022 Continue current cardiac medications Patient is stable from a cardiac standpoint Discharge per medicine Patient to follow-up post discharge with Dr. Castro Nurse practitioner note has been reviewed by physician. Signing provider agrees with the documented findings, assessment, and plan of care. Objective - Vital Signs Vital signs: Vital Signs Temp 97.5 F L 01/06/23 12:00 Pulse 74 01/06/23 12:03 Resp 18 01/06/23 12:00 BP 121/74 01/06/23 12:00 Pulse Ox 95 01/06/23 12:00 FiO2 Intake & Output 01/05/23 01/06/23 01/06/23 18:59 06:59 18:59 Intake Total 660 110 Output Total 460 400 Balance 200 -400 110 Weight 79.832 kg 81 kg 81 kg Intake: Oral 660 110 Output: Urine 460 400 Other: Voiding Method Toilet Toilet # Voids 2 - Labs CBC & Chem 7: 01/06/23 06:44 01/06/23 06:44 Labs: Abnormal Lab Results - Last 24 Hours (Table) 01/06/23 01/06/23 Range/Units 06:44 06:44 RBC 3.55 L (3.80-5.40) m/uL Hgb 10.5 L (11.4-16.0) gm/dL Hct 33.0 L (34.0-46.0) % Chloride 91 L (98-107) mmol/L Carbon Dioxide 44 H* (22-30) mmol/L BUN 30 H (7-17) mg/dL Creatinine 1.59 H (0.52-1.04) mg/dL Glucose 105 H (74-99) mg/dL Albumin 3.4 L (3.5-5.0) g/dL
[2023-01-06 15:32] VITALS: PULSE 72
[2023-01-06] MEDS ORDERED: FUROSEMIDE 40 MG TAB PO SCH (16:00)
--- NOTE | 2023-01-07 23:01 | P.DS ---
Providers Date of admission: 01/04/23 23:21 Attending physician: Guanako Lindsay Consults: 01/04/23 23:21 Consult Physician Routine Consulting Provider: Kellie Benitez Consult Reason/Comments: CHF exacerbation Do you want consulting provider notified?: Yes Primary care physician: Ingrid Ocampo DO Hospital Course: Final Diagnosis -COPD with acute exacerbation patient will be continued on his steroids i nhalational treatments -Acute on chronic hypoxic and hypercapnic respiratory failure secondary to COPD exacerbation on 3L home oxygen -Heart failure chronic diastolic dysfunction with acute exacerbation. Patient does have a right-sided heart failure cor pulmonae with acute right-sided heart failure exacerbation. Treated with IV lasix -Chronic respiratory failure secondary to COPD and emphysema -Paroxysmal atrial fibrillation: Presently rate controlled continue with home medications and anticoagulation -GERD -Status post permanent pacemaker -history of breast cancer with right lumpectomy and radiation -Former smoker -Chronic kidney disease stage IV likely nkf evaluated by nephrology prior hospital stay Discharge Disposition Patient is stable for discharge home. Continues on home dose of 3L of oxygen. Does have some shortness of breath with exertion has improved since admission and transitioned back to oral lasix on discharge. Patient recommended to continue same home inhalers continues on LAMA and ICS/LABA scheduled with as needed albuterol inhaler for shortness of breath and wheezing patient does use a nebulizer as needed as well. Recommend to follow up with nephrology Dr. August as previously recommended Follow up with pulmonary services Dr. Alonzo and cardiology Dr. Benitez on discharge. Repeat labs in 2 to 3 days and follow up with your PCP in 1 to 2 days. Hospital Course This is a 77-year-old the female with history of COPD, CHF, chronic hypoxic respiratory failure, chronic kidney disease, GERD, atrial fibrillation, breast cancer and former smoker. Patient came in with comments of shortness of breath patient is an elevated BNP of 5000 chest x-ray showed some mild pulmonary edema patient does have JVD patient also wheezing on admission. Patient is both in [place] PD as well as CHF exacerbation. Patient mostly has right-sided heart failure chronic cor pulmonale with right-sided heart failure exacerbation at this time patient Patient has been admitted to the hospital and cardiology has been consulted for further evaluation. Patient has been started on IV lasix. patient is on inhaled steroids and inhalational treatments which will continue. Patient takes 40 mg of Lasix twice a day at home. Patient baseline creatinine around 1.7 but her creatinine on this hospital visit is 1.42 which is actually better than her baseline patient has minimally elevated troponins for 0.073 secondary to chronic kidney disease. Patient was treated with IV lasix creatinine was slightly increased up to 1.59. Shortness of breath had improved while at rest and minimally with exertion patient is currently on home oxygen dose of 3L. Patient will be started on oral steroid taper. Patient has been cleared for discharge home with the above mentioned recommendations. Patients lungs are clear, S1 S2 auscultated abdomen is soft and nontender. Focal neurological exam is negative. Please see medication reconciliation for a list of current medication. Thank you for allowing us to participate in the care of this patient. The impression and plan of care has been dictated by Anne Marie Bell, Nurse Practitioner as directed. Dr. Sekou MD I have performed a history and physical examination and medical decision making of this patient, discussed the same with the dictator, and agree with the dictators assessment and plan as written, documented as a scribe. Based on total visit time, I have performed more than 50% of this visit. Patient Condition at Discharge: Stable Plan - Discharge Summary Discharge Rx Participant: No New Discharge Prescriptions: New methylPREDNISolone Dose Pack [Medrol Dose Pack] 4 mg PO DIRECTED #1 packet Continue allopurinoL [Zyloprim] 150 mg PO DAILY Apixaban [Eliquis] 5 mg PO BID Ferrous Sulfate [Iron (65 MG Elemental)] 325 mg PO DAILY Magnesium Oxide [Mag-Ox] 400 mg PO DAILY Metoprolol Succinate [Metoprolol Succinate ER] 75 mg PO HS Tiotropium [place] [Spiriva Handihaler] 18 mcg INHALATION RT-DAILY Power C Supplement 2 tab PO DAILY Cholecalciferol [Vitamin D3 (25 Mcg = 1000 Iu)] 150 mcg PO DAILY Colchicine 0.6 mg PO TUTH Fexofenadine HCl [Jamee Allergy] 180 mg PO HS Fluticasone Propion/Salmeterol [Advair 500-50 Diskus] 1 puff INHALATION RT- BID Ipratropium/Albuter 20-100Mcg [Combivent Respimat 20-100Mcg Inhaler] 1 puff INHALATION RT-QID PRN PRN Reason: Shortness Of Breath Montelukast [Singulair] 10 mg PO HS Pantoprazole [Protonix] 40 mg PO BID Potassium Chloride ER [K-Dur 20] 20 meq PO DAILY Vitamin B Complex 1 cap PO DAILY Furosemide [Lasix] 40 mg PO BID@0900,1600 #60 tab Ipratropium-Albuterol Nebulize [Duoneb 0.5 mg-3 mg/3 ml Soln] 3 ml INHALATION RT-QID PRN #1 each PRN Reason: Shortness Of Breath Albuterol Inhaler [Ventolin Hfa Inhaler] 2 puff INHALATION RT-QID PRN #1 each PRN Reason: Shortness Of Breath Discharge Medication List Apixaban [Eliquis] 5 mg PO BID 11/12/22 [History] Cholecalciferol [Vitamin D3 (25 Mcg = 1000 Iu)] 150 mcg PO DAILY 11/12/22 [History] Colchicine 0.6 mg [facility] 11/12/22 [History] Ferrous Sulfate [Iron (65 MG Elemental)] 325 mg PO DAILY 11/12/22 [History] Fexofenadine HCl [Jamee Allergy] 180 mg PO HS 11/12/22 [History] Fluticasone Propion/Salmeterol [Advair 500-50 Diskus] 1 puff INHALATION RT-BID 11/12/22 [History] Ipratropium/Albuter 20-100Mcg [Combivent Respimat 20-100Mcg Inhaler] 1 puff INHALATION RT-QID PRN 11/12/22 [History] Magnesium Oxide [Mag-Ox] 400 mg PO DAILY 11/12/22 [History] Metoprolol Succinate [Metoprolol Succinate ER] 75 mg PO HS 11/12/22 [History] Montelukast [Singulair] 10 mg PO HS 11/12/22 [History] Pantoprazole [Protonix] 40 mg PO BID 11/12/22 [History] Potassium Chloride ER [K-Dur 20] 20 meq PO DAILY 11/12/22 [History] Power C Supplement 2 tab PO DAILY 11/12/22 [History] Tiotropium [place] [Spiriva Handihaler] 18 mcg INHALATION RT-DAILY 11/12/22 [History] Vitamin B Complex 1 cap PO DAILY 11/12/22 [History] allopurinoL [Zyloprim] 150 mg PO DAILY 11/12/22 [History] Albuterol Inhaler [Ventolin Hfa Inhaler] 2 puff INHALATION RT-QID PRN #1 each 11/19/22 [Rx] Furosemide [Lasix] 40 mg PO BID@0900,1600 #60 tab 11/19/22 [Rx] Ipratropium-Albuterol Nebulize [Duoneb 0.5 mg-3 mg/3 ml Soln] 3 ml INHALATION RT-QID PRN #1 each 11/19/22 [Rx] methylPREDNISolone Dose Pack [Medrol Dose Pack] 4 mg PO DIRECTED #1 packet 01/06/23 [Rx] Follow up Appointment(s)/Referral(s): Kellie Benitez MD [STAFF PHYSICIAN] - 1 Week (Will call the patient for Date and Time ) Ingrid Ocampo DO [Primary Care Provider] - 1-2 days (please call office to schedule your appt ) Adriano Alonzo MD [STAFF PHYSICIAN] - 01/20/23 10:15 am Ambulatory/Diagnostic Orders: Basic Metabolic Panel [LAB.AMB] Time Frame: 3 Days, Location: None Selected Patient Instructions/Handouts: Heart Failure (DC), COPD (Chronic Obstructive Pulmonary Disease) (DC) Activity/Diet/Wound Care/Special Instructions: Recommend close monitoring of weight notify provider for 2 to 3 lbs overnight or 1 lb in one week weight increase Keep log and weigh yourself at the same time every day. Continue on oral lasix twice a day as previous Recommend to follow up with nephrology Dr. August as previously recommended Follow up with pulmonary services Dr. Alonzo and cardiology Dr. Benitez on discharge Continue same home inhalers and begin steroid taper Repeat labs in 2 to 3 days and follow up with your PCP in 1 to 2 days. Discharge Disposition: HOME SELF-CARE
== END 2023-01-06 16:20 | disposition home or self-care (01) ==
LOC: EC 20:15 → 3SCARD 23:21
PROVIDERS: ADMIT Hospitalist; ATTEND Hospitalist
DX: J43.9 Emphysema, unspecified (principal); J96.21 Acute and chronic respiratory failure with hypoxia; J96.22 Acute and chronic respiratory failure with hypercapnia; I13.0 Hypertensive heart and chronic kidney disease with heart failure and stage 1 through stage 4 chronic kidney disease, or unspecified chronic kidney disease; I50.43 Acute on chronic combined systolic (congestive) and diastolic (congestive) heart failure; N18.4 Chronic kidney disease, stage 4 (severe); I48.21 Permanent atrial fibrillation; I50.82 Biventricular heart failure; I08.2 Rheumatic disorders of both aortic and tricuspid valves; I27.29 Other secondary pulmonary hypertension; I27.81 Cor pulmonale (chronic); I25.10 Atherosclerotic heart disease of native coronary artery without angina pectoris; K21.9 Gastro-esophageal reflux disease without esophagitis; L98.9 Disorder of the skin and subcutaneous tissue, unspecified; M10.9 Gout, unspecified; M19.90 Unspecified osteoarthritis, unspecified site; R79.89 Other specified abnormal findings of blood chemistry; F32.A Depression, unspecified; Z99.81 Dependence on supplemental oxygen; Z79.01 Long term (current) use of anticoagulants; Z79.51 Long term (current) use of inhaled steroids; Z79.899 Other long term (current) drug therapy; Z88.6 Allergy status to analgesic agent; Z92.3 Personal history of irradiation; Z85.3 Personal history of malignant neoplasm of breast; Z95.0 Presence of cardiac pacemaker; Z98.891 History of uterine scar from previous surgery; Z98.890 Other specified postprocedural states; Z87.891 Personal history of nicotine dependence; Z83.3 Family history of diabetes mellitus
CPT/HCPCS: 96376 ×2; 96374; 99285; 36415; 94640 ×4; 94760; 93005; 85379; 83880; 80053 ×2; 82803; 83605; 83735; 84484 ×2; 85025; 85027; 85610; 85730; 71046; G0378 ×3; J1940 ×2; J7512; 96375

== ENCOUNTER 2023-06-25 21:43 | Inpatient (IN) | payer MEDICARE ==
[2023-06-25] MEDS ORDERED: IPRATROPIUM-ALBUTEROL 3 ML NEB INHALATION STA (21:57)
--- NOTE | 2023-06-25 22:04 | ED ---
SOB HPI - General Chief Complaint: Shortness of Breath Stated Complaint: SOB Time Seen by Provider: 06/25/23 21:56 Source: patient, EMS, RN notes reviewed, old records reviewed Mode of arrival: EMS Limitations: no limitations - History of Present Illness Initial Comments: This is a 78-year-old female to the ER today for evaluation of significant respiratory distress leg edema shortness of breath decreased activity or use of Lasix. Patient is having increasing shortness of breath especially with exertion at home. Occasional chest pain and tightness as well. Patient denying any fevers but is having cough and congestion. MD Complaint: shortness of breath, cough, chest pain, anxiety -: days(s) Severity: moderate Severity scale (1-10): 7 Quality: dull Consistency: constant Improves With: nothing Known History Of: COPD, asthma, congestive heart failure Context: recent URI Associated Symptoms: pain with inspiration, cough Treatments Prior to Arrival: oxygen, bronchodilator - Related Data Home Medications Medication Instructions Recorded Confirmed Apixaban [Eliquis] 5 mg PO BID 11/12/22 06/25/23 Cholecalciferol [Vitamin D3 (25 75 mcg PO DAILY 11/12/22 06/25/23 Mcg = 1000 Iu)] [facility] 11/12/22 06/25/23 Ferrous Sulfate [Iron (65 MG 325 mg PO DAILY 11/12/22 06/25/23 Elemental)] Fexofenadine HCl [Jamee Allergy] 180 mg PO HS 11/12/22 06/25/23 Ipratropium/Albuter 20-100Mcg 1 puff INHALATION RT-QID PRN 11/12/22 06/25/23 [Combivent Respimat 20-100Mcg Inhaler] Magnesium Oxide [Mag-Ox] 400 mg PO DAILY 11/12/22 06/25/23 Metoprolol Succinate [Metoprolol 75 mg PO HS 11/12/22 06/25/23 Succinate ER] Montelukast [Singulair] 10 mg PO HS 11/12/22 06/25/23 Pantoprazole [Protonix] 40 mg PO BID 11/12/22 06/25/23 Potassium Chloride ER [K-Dur 20] 20 meq PO DAILY 11/12/22 06/25/23 Power C Supplement 2 tab PO DAILY 11/12/22 06/25/23 Vitamin B Complex 1 cap PO DAILY 11/12/22 06/25/23 allopurinoL [Zyloprim] 150 mg PO DAILY 11/12/22 06/25/23 Ipratropium-Albuterol Nebulize 3 ml INHALATION RT-Q3H 06/25/23 06/25/23 [Duoneb 0.5 mg-3 mg/3 ml Soln] Previous Rx's Medication Instructions Recorded Albuterol Inhaler [Ventolin Hfa 2 puff INHALATION RT-QID PRN #1 11/19/22 Inhaler] each Furosemide [Lasix] 40 mg PO BID@0900,1600 #60 tab 11/19/22 Allergies Allergy/AdvReac Type Severity Reaction Status Date / Time aspirin Allergy Anaphylaxis Verified 06/25/23 22:13 ibuprofen Allergy Anaphylaxis Verified 06/25/23 22:13 Review of Systems ROS Statement: Those systems with pertinent positive or pertinent negative responses have been documented in the HPI. ROS Other: All systems not noted in ROS Statement are negative. Past Medical History Past Medical History: Atrial Fibrillation, Asthma, Cancer, Heart Failure, COPD, GERD/Reflux, Skin Disorder Additional Past Medical History / Comment(s): COPD, asthma, breast cancer-right lumpectomy and radiation therapy 25 years ago, wears 3L NC at home, chronic atrial fibrillation, CHF (systolic ). Arthritis, dry patch on right leg, gout History of Any Multi-Drug Resistant Organisms: None Reported Past Surgical History: Section, Heart Catheterization, Hernia Repair, Pacemaker Additional Past Surgical History / Comment(s): left hand surgery for broken index and middle finger Past Anesthesia/Blood Transfusion Reactions: No Reported Reaction Type of Cardiac Device: Permanent Pacemaker Device Placement Date:: 07/2021 Past Psychological History: Depression Smoking Status: Former smoker - Past Family History Mother Family Medical History: Diabetes Mellitus General Exam Limitations: no limitations General appearance: alert, in no apparent distress Head exam: Present: atraumatic, normocephalic, normal inspection Eye exam: Present: normal appearance, PERRL, EOMI. Absent: scleral icterus, conjunctival injection, periorbital swelling ENT exam: Present: normal exam, mucous membranes moist Neck exam: Present: normal inspection. Absent: tenderness, meningismus, lymphadenopathy Respiratory exam: Present: normal lung sounds bilaterally. Absent: respiratory distress, wheezes, rales, rhonchi, stridor Cardiovascular Exam: Present: regular rate, normal rhythm, normal heart sounds. Absent: systolic murmur, diastolic murmur, rubs, gallop, clicks GI/Abdominal exam: Present: soft, normal bowel sounds. Absent: distended, tenderness, guarding, rebound, rigid Extremities exam: Present: normal inspection, full ROM, normal capillary refill. Absent: tenderness, pedal edema, joint swelling, calf tenderness Back exam: Present: normal inspection Neurological exam: Present: alert, oriented X3, CN II-XII intact Psychiatric exam: Present: normal affect, normal mood Skin exam: Present: warm, dry, intact, normal color. Absent: rash Course Vital Signs 06/25/23 06/25/23 06/25/23 21:45 22:30 22:46 Temperature 98.1 F Pulse Rate 89 83 73 Respiratory 28 H Rate Blood Pressure 127/65 O2 Sat by Pulse 96 Oximetry 06/25/23 06/26/23 06/26/23 23:00 00:00 00:48 Temperature Pulse Rate 77 73 Respiratory 24 Rate Blood Pressure 125/84 O2 Sat by Pulse 93 L 93 L Oximetry 06/26/23 06/26/23 06/26/23 00:59 01:00 03:00 Temperature Pulse Rate 70 78 75 Respiratory 24 24 Rate Blood Pressure 132/70 118/69 O2 Sat by Pulse 94 L 93 L Oximetry 06/26/23 06/26/23 06/26/23 04:00 05:00 05:56 Temperature Pulse Rate 74 75 79 Respiratory 24 24 Rate Blood Pressure 102/69 113/86 O2 Sat by Pulse 93 L 93 L Oximetry 06/26/23 06/26/23 06/26/23 06:00 06:08 08:21 Temperature Pulse Rate 80 76 79 Respiratory 24 Rate Blood Pressure 127/70 O2 Sat by Pulse 92 L 96 Oximetry 06/26/23 06/26/23 06/26/23 08:32 09:08 11:03 Temperature Pulse Rate 80 77 70 Respiratory 18 Rate Blood Pressure 126/82 O2 Sat by Pulse 96 Oximetry 06/26/23 06/26/23 06/26/23 11:15 13:00 15:01 Temperature Pulse Rate 70 84 82 Respiratory 26 H 18 Rate Blood Pressure 113/85 94/74 O2 Sat by Pulse 92 L 91 L Oximetry 06/26/23 06/26/23 06/26/23 15:50 15:56 16:03 Temperature Pulse Rate 79 85 71 Respiratory 18 Rate Blood Pressure 97/73 O2 Sat by Pulse 96 Oximetry 06/26/23 06/26/23 06/26/23 16:34 17:16 17:40 Temperature Pulse Rate 82 80 81 Respiratory 15 20 20 Rate Blood Pressure 106/92 124/86 124/86 O2 Sat by Pulse 90 L 92 L 90 L Oximetry 06/26/23 06/26/23 06/26/23 19:35 19:40 19:51 Temperature Pulse Rate 78 76 75 Respiratory 16 Rate Blood Pressure 126/69 O2 Sat by Pulse 92 L Oximetry 06/26/23 06/26/23 20:10 21:00 Temperature Pulse Rate 75 70 Respiratory 15 22 Rate Blood Pressure 130/70 130/70 O2 Sat by Pulse 92 L 92 L Oximetry - Reevaluation(s) Reevaluation #1: 06/26/23 00:31 Records reviewed Reevaluation #2: 06/26/23 00:31 Patient symptoms not significantly unchanged Reevaluation #3: 06/26/23 00:31 patient informed results and questions answered Reevaluation #4: 06/25/23 22:40 Was pt. sent in by a medical professional or institution (, PA, [employer], urgent care, hospital, or assisted...) When possible be specific @ -no Did you speak to anyone other than the patient for history (EMS, parent, family, police, friend...)? What history was obtained from this source @ -no Did you review nursing and triage notes (agree or disagree)? Why? @ -agree Are old charts reviewed (outside hosp., previous admission, EMS record, old EKG, old radiological studies, urgent care reports/EKG's, assisted records)? Report findings @ -yes Differential Diagnosis (chest pain, altered mental status, abdominal pain women, abdominal pain men, vaginal bleeding, weakness, fever, dyspnea, syncope, headache, dizziness, GI bleed, back pain, seizure, CVA, palpatations, mental health, musculoskeletal)? @ -prior EKG interpreted by me (3pts min.). @ -yes X-rays interpreted by me (1pt min.). @ -yes negative for acute disease CT interpreted by me (1pt min.). @ -no U/S interpreted by me (1pt. min.). @ -no What testing was considered but not performed or refused? (CT, X-rays, U/S, labs)? Why? @ -none What meds were considered but not given or refused? Why? @ -none Did you discuss the management of the patient with other professionals (professionals i.e. Dr., PA, [employer], lab, RT, psych nurse, bilingual social worker, activated sludge attendant, teacher, search and rescue officer, sample case porter)? Give summary @ -no Was smoking cessation discussed for >3mins.? @ -no Was critical care preformed (if so, how long)? @ -yes31 Were there social determinants of health that impacted care today? How? (Homelessness, low income, unemployed, alcoholism, drug addiction, transportation, low edu. Level, literacy, decrease access to med. care, half-way, rehab)? @ -none Was there de-escalation of care discussed even if they declined (Discuss DNR or withdrawal of care, Hospice)? DNR status @ -no What co-morbidities impacted this encounter? (DM, HTN, Smoking, COPD, CAD, Cancer, CVA, ARF, Chemo, Hep., AIDS, mental health diagnosis, sleep apnea, morbid obesity)? @ -none Was patient admitted / discharged? Hospital course, mention meds given and route, prescriptions, significant lab abnormalities, going to OR and other pertinent info. @ - 78 female to the emergency department today. Patient [facility] emergency department today for evaluation regards to shortness of breath with bilateral pleural effusions pulmonary edema in significant COPD exacerbation, patient was hypoxic requiring increasing supplemental oxygen than normal patient is improved with supportive care was still in significant distress with accessory for breathing here in the ER will be admitted for further evaluation management Admitted Undiagnosed new problem with uncertain prognosis? @ -no Drug Therapy requiring intensive monitoring for toxicity (Heparin, Nitro, Insulin, Cardizem)? @ -no Were any procedures done? @ -no Diagnosis/symptom? @ -COPD hypoxia Acute, or Chronic, or Acute on Chronic? @ -Acute Uncomplicated (without systemic symptoms) or Complicated (systemic symptoms)? @ -Complicated Side effects of treatment? @ -no Exacerbation, Progression, or Severe Exacerbation? @ -exacerbation Poses a threat to life or bodily function? How? (Chest pain, [place], CO, pneumonia, PE, COPD, DKA, ARF, appy, cholecystitis, CVA, Diverticulitis, Homicidal, Suicidal, threat to staff... and all critical care pts) @ -yes with significant respiratory failure Reevaluation #5: 06/26/23 00:31 Differential Dyspnea: Coronary syndrome, arrhythmia, tamponade, asthma, COPD, pulmonary embolism, pneumonia, pneumothorax, pulmonary effusion, anaphylaxis, diabetic ketoacidosis, flailed chest, pulmonary contusion, diaphragmatic rupture, anemia, neuromuscular, this is not meant to be an all-inclusive list. - Consultations Consultation #1: Spoke with [facility] were agrees to admit this patient Medical Decision Making - Medical Decision Making 78 female to the emergency department today. Patient [facility] emergency department today for evaluation regards to shortness of breath with bilateral pleural effusions pulmonary edema in significant COPD exacerbation, patient was hypoxic requiring worse supple oxygen than normal patient is improved with supportive care was still in significant distress with accessory for breathing here in the ER will be admitted for further evaluation management - Lab Data Result diagrams: 06/25/23 21:57 06/25/23 21:57 Lab Results 06/25/23 06/25/23 06/25/23 Range/Units 21:57 21:57 21:57 WBC 6.5 (3.8-10.6) k/uL RBC 3.66 L (3.80-5.40) m/uL Hgb 10.6 L (11.4-16.0) gm/dL Hct 35.4 (34.0-46.0) % MCV 96.8 (80.0-100.0) fL MCH 29.1 (25.0-35.0) pg MCHC 30.1 L (31.0-37.0) g/dL RDW 16.8 H (11.5-15.5) % Plt Count 190 (150-450) k/uL MPV 9.1 Neutrophils % 78 % Lymphocytes % 10 % Monocytes % 5 % Eosinophils % 5 % Basophils % 1 % Neutrophils # 5.1 (1.3-7.7) k/uL Lymphocytes # 0.7 L (1.0-4.8) k/uL Monocytes # 0.3 (0-1.0) k/uL Eosinophils # 0.3 (0-0.7) k/uL Basophils # 0.0 (0-0.2) k/uL Hypochromasia Marked Anisocytosis Slight Macrocytosis Slight PT 12.5 (10.0-12.5) sec INR 1.2 H (<1.2) APTT 26.1 (22.0-30.0) sec Sodium 145 (137-145) mmol/L Potassium 4.4 (3.5-5.1) mmol/L Chloride 98 (98-107) mmol/L Carbon Dioxide 39 H (22-30) mmol/L Anion Gap 8 mmol/L BUN 40 H (7-17) mg/dL Creatinine 1.77 H (0.52-1.04) mg/dL Est GFR (CKD-EPI)AfAm 31 (>60 ml/min/1.73 sqM) Est GFR (CKD-EPI)NonAf 27 (>60 ml/min/1.73 sqM) Glucose 124 H (74-99) mg/dL Plasma Lactic Acid Cliff (0.7-2.0) mmol/L Calcium 9.2 (8.4-10.2) mg/dL Magnesium 2.2 (1.6-2.3) mg/dL Total Bilirubin 0.9 (0.2-1.3) mg/dL AST 29 (14-36) U/L ALT 24 (4-34) U/L Alkaline Phosphatase 96 (38-126) U/L Troponin I (0.000-0.034) ng/mL NT-Pro-B Natriuret Pep 82456 pg/mL Total Protein 7.1 (6.3-8.2) g/dL Albumin 3.8 (3.5-5.0) g/dL 06/25/23 06/25/23 Range/Units 21:57 21:57 WBC (3.8-10.6) k/uL RBC (3.80-5.40) m/uL Hgb (11.4-16.0) gm/dL Hct (34.0-46.0) % MCV (80.0-100.0) fL MCH (25.0-35.0) pg MCHC (31.0-37.0) g/dL RDW (11.5-15.5) % Plt Count (150-450) k/uL MPV Neutrophils % % Lymphocytes % % Monocytes % % Eosinophils % % Basophils % % Neutrophils # (1.3-7.7) k/uL Lymphocytes # (1.0-4.8) k/uL Monocytes # (0-1.0) k/uL Eosinophils # (0-0.7) k/uL Basophils # (0-0.2) k/uL Hypochromasia Anisocytosis Macrocytosis PT (10.0-12.5) sec INR (<1.2) APTT (22.0-30.0) sec Sodium (137-145) mmol/L Potassium (3.5-5.1) mmol/L Chloride (98-107) mmol/L Carbon Dioxide (22-30) mmol/L Anion Gap mmol/L BUN (7-17) mg/dL Creatinine (0.52-1.04) mg/dL Est GFR (CKD-EPI)AfAm (>60 ml/min/1.73 sqM) Est GFR (CKD-EPI)NonAf (>60 ml/min/1.73 sqM) Glucose (74-99) mg/dL Plasma Lactic Acid Cliff 0.9 (0.7-2.0) mmol/L Calcium (8.4-10.2) mg/dL Magnesium (1.6-2.3) mg/dL Total Bilirubin (0.2-1.3) mg/dL AST (14-36) U/L ALT (4-34) U/L Alkaline Phosphatase (38-126) U/L Troponin I 0.063 H* (0.000-0.034) ng/mL NT-Pro-B Natriuret Pep pg/mL Total Protein (6.3-8.2) g/dL Albumin (3.5-5.0) g/dL - EKG Data -: EKG Interpreted by Me (EKG is patient is 76 QRS 138 QTc 432) - Radiology Data Radiology results: report reviewed (Sectors positive for bilateral pleural effusions and pulmonary edema), image reviewed Critical Care Time Critical Care Time: Yes Total Critical Care Time: 31 Disposition Clinical Impression: COPD (chronic obstructive pulmonary disease), Elevated troponin, Congestive heart failure, Acute exacerbation of chronic obstructive pulmonary disease, Renal insufficiency syndrome, Acute respiratory failure, Hypoxia Disposition: ADMITTED IP TO THIS [facility] Condition: Serious Is patient prescribed a controlled substance at d/c from ED?: No Time of Disposition: 00:15
[2023-06-25 22:12] LABS: Anisocytosis Slight; Basophils % (A) 1 %; Eosinophils # (A) 0.3 k/uL (0-0.7); Eosinophils % (A) 5 %; HCT 35.4 % (34.0-46.0); HGB 10.6 gm/dL (11.4-16.0); Hypochromasia Marked; Lymphocytes # (A) 0.7 k/uL (1.0-4.8); Lymphocytes % (A) 10 %; MCH 29.1 pg (25.0-35.0); MCHC 30.1 g/dL (31.0-37.0); MCV 96.8 fL (80.0-100.0); Macrocytosis Slight; Mean Platelet Volume 9.1; Monocytes # (A) 0.3 k/uL (0-1.0); Monocytes % (A) 5 %; Neutrophils # (A) 5.1 k/uL (1.3-7.7); Neutrophils % (A) 78 %; Platelet Count 190 k/uL (150-450); RBC 3.66 m/uL (3.80-5.40); RDW 16.8 % (11.5-15.5); WBC 6.5 k/uL (3.8-10.6)
[2023-06-25 22:21] LABS: INR 1.2 (<1.2); Partial Thromboplastin Time 26.1 sec (22.0-30.0); Prothrombin Time 12.5 sec (10.0-12.5)
--- NOTE | 2023-06-25 23:11 | XR ---
EXAM: XR Chest, 1 View CLINICAL HISTORY: ITS.REASON XR Reason: sob TECHNIQUE: Frontal view of the chest. COMPARISON: chest x-ray 01/04/2023 FINDINGS: Lungs: Basilar airspace opacities bilaterally. No pneumothorax Pleural space: Bilateral pleural effusions right greater than left. Heart: The heart is enlarged. Tubes, lines and devices: Pacemaker leads in place. IMPRESSION: 1. The heart is enlarged. 2. Bilateral pleural effusions right greater than left. 3. Basilar airspace opacities bilaterally.
[2023-06-25 23:19] LABS: ALT 24 U/L (4-34); AST 29 U/L (14-36); African American GFR (CKD) 31 (>60 ml/min/1.73 sqM); Albumin 3.8 g/dL (3.5-5.0); Alkaline Phosphatase 96 U/L (38-126); Anion Gap 8 mmol/L; Blood Urea Nitrogen 40 mg/dL (7-17); Calcium 9.2 mg/dL (8.4-10.2); Carbon Dioxide 39 mmol/L (22-30); Chloride 98 mmol/L (98-107); Glucose 124 mg/dL (74-99); Magnesium 2.2 mg/dL (1.6-2.3); Non-African American GFR(CKD) 27 (>60 ml/min/1.73 sqM); Potassium 4.4 mmol/L (3.5-5.1); Sodium 145 mmol/L (137-145); Total Bilirubin 0.9 mg/dL (0.2-1.3); Total Protein 7.1 g/dL (6.3-8.2)
[2023-06-25 23:27] LABS: NT-Pro-B-Type Natriuretic Pept 19700 pg/mL
[2023-06-26] MEDS ORDERED: NALOXONE 0.4 MG/ML 1 ML VIAL IV PRN (00:26)
[2023-06-26] MEDS ORDERED: MORPHINE SULFATE 4 MG/ML SYRINGE IV PRN (00:26)
[2023-06-26] MEDS ORDERED: ONDANSETRON 4 MG/2 ML VIAL IVP PRN (00:26)
[2023-06-26] MEDS ORDERED: IPRATROPIUM-ALBUTEROL 3 ML NEB INHALATION STA (00:28)
[2023-06-26] MEDS ORDERED: FUROSEMIDE 10 MG/ML 4 ML VIAL IV STA (00:29)
[2023-06-26] MEDS ORDERED: ALBUTEROL NEBULIZED 2.5 MG/3 ML INHALATION PRN (01:50)
--- NOTE | 2023-06-26 04:49 | P.CNPUL ---
History of Present Illness Consult date: 06/26/23 Requesting physician: Rashid Salmeron Reason for consult: dyspnea Chief complaint: Shortness of breath History of present illness: I am seeing this patient in new consultation today 06/26/2023 in the emergency room as she has progressively become more short of breath over the last couple w eeks. Patient is a 78-year-old white female with past medical history significant for oxygen dependent COPD, CHF, chronic kidney disease, atrial fibrillation, permanent pacemaker, breast cancer with previous lumpectomy and radiation , among other things. She follows with a Dr. Ocampo, in [place], and has moved to the area within the last year. Patient states that she's had progressively worsening shortness of breath over the last couple weeks. She is normally oxygen dependent on 3 L/m nasal cannula. Her shortness of breath is mostly exertional. It's accompanied with chest tightness. She's had a dry nonproductive cough. Denies any fevers. Denies sick contacts. She also states that over weekend, she went to [place] with her family, and did not want to take her Lasix. She held her Lasix on her own from to Monday. Her breathing did get worse. She also admits increased lower extremity swelling. Patient is currently sitting up in bed, on 3 L/m nasal cannula, in no acute distress. Chest x-ray on arrival showed cardiomegaly with bilateral pleural effusions right greater than left and likely bibasilar compressive atelectasis, underlying infectious process could not be ruled out. Most recent echocardiogram from October of this year shows borderline LV systolic function with an EF of 50%. Severe pulmonary hypertension with a RVSP of 67 mmHg, severe right ventricular dilation and moderate tricuspid regurgitation. CBC on arrival showed a WBC count of 6.5, hemoglobin 10.6, hematocrit 35.4, platelets 190. BMP on arrival shows sodium 145, potassium 4.4, chloride 98, serum bicarb 39, BUN 40, creatinine 1.77, glucose 124. Troponins were elevated but flat. NT proBNP was significantly elevated 19,700. ECG on arrival showed a ventricular paced rhythm. Hemodynamically stable. Review of Systems REVIEW OF SYSTEMS: CONSTITUTIONAL: Denies any recent significant weight loss or weight gain. EYES: Denies change in vision. EARS, NOSE, MOUTH, THROAT: Denies headaches, denies sore throat. CARDIOVASCULAR: Denies chest pain, palpitations or syncopal episodes. Admits increased lower extremity swelling. RESPIRATORY: See HPI GASTROINTESTINAL: Denies change in appetite, abdominal pain, nausea and vomiting, or diarrhea GENITOURINARY: Denies hematuria, denies infections. MUSKULOSKELETAL: Denies pain, denies swelling. INTEGUMENTARY: Denies rash, denies eczema. NEUROLOGICAL: Denies recent memory loss, no recent seizure activity. PSYCHIATRIC: Denies anxiety, denies depression. HEMATOLOGIC/LYMPHATIC: Denies anemia, denies enlarged lymph node Past Medical History Past Medical History: Atrial Fibrillation, Asthma, Cancer, Heart Failure, COPD, GERD/Reflux, Skin Disorder Additional Past Medical History / Comment(s): COPD, asthma, breast cancer-right lumpectomy and radiation therapy 25 years ago, wears 3L NC at home, chronic a trial fibrillation, CHF (systolic ). Arthritis, dry patch on right leg, gout History of Any Multi-Drug Resistant Organisms: None Reported Past Surgical History: Section, Heart Catheterization, Hernia Repair, Pacemaker Additional Past Surgical History / Comment(s): left hand surgery for broken index and middle finger Past Anesthesia/Blood Transfusion Reactions: No Reported Reaction Type of Cardiac Device: Permanent Pacemaker Device Placement Date:: 07/2021 Past Psychological History: Depression Smoking Status: Former smoker - Past Family History Mother Family Medical History: Diabetes Mellitus Medications and Allergies Home Medications Medication Instructions Recorded Confirmed Type Apixaban [Eliquis] 5 mg PO BID 11/12/22 06/25/23 History Cholecalciferol [Vitamin D3 (25 75 mcg PO DAILY 11/12/22 06/25/23 History Mcg = 1000 Iu)] Colchicine 0.6 mg PO TUTH 11/12/22 06/25/23 History Ferrous Sulfate [Iron (65 MG 325 mg PO DAILY 11/12/22 06/25/23 History Elemental)] Fexofenadine HCl [Jamee Allergy] 180 mg PO HS 11/12/22 06/25/23 History Ipratropium/Albuter 20-100Mcg 1 puff INHALATION RT-QID PRN 11/12/22 06/25/23 History [Combivent Respimat 20-100Mcg Inhaler] Magnesium Oxide [Mag-Ox] 400 mg PO DAILY 11/12/22 06/25/23 History Metoprolol Succinate [Metoprolol 75 mg PO HS 11/12/22 06/25/23 History Succinate ER] Montelukast [Singulair] 10 mg PO HS 11/12/22 06/25/23 History Pantoprazole [Protonix] 40 mg PO BID 11/12/22 06/25/23 History Potassium Chloride ER [K-Dur 20] 20 meq PO DAILY 11/12/22 06/25/23 History Power C Supplement 2 tab PO DAILY 11/12/22 06/25/23 History Vitamin B Complex 1 cap PO DAILY 11/12/22 06/25/23 History allopurinoL [Zyloprim] 150 mg PO DAILY 11/12/22 06/25/23 History Albuterol Inhaler [Ventolin Hfa 2 puff INHALATION RT-QID PRN #1 11/19/22 06/25/23 Rx Inhaler] each Furosemide [Lasix] 40 mg PO BID@0900,1600 #60 tab 11/19/22 06/25/23 Rx Ipratropium-Albuterol Nebulize 3 ml INHALATION RT-Q3H 06/25/23 06/25/23 History [Duoneb 0.5 mg-3 mg/3 ml Soln] Allergies Allergy/AdvReac Type Severity Reaction Status Date / Time aspirin Allergy Anaphylaxis Verified 06/25/23 22:13 ibuprofen Allergy Anaphylaxis Verified 06/25/23 22:13 Physical Exam Vitals: Vital Signs Temp Pulse Resp BP Pulse Ox 06/26/23 01:00 78 24 132/70 94 L 06/26/23 00:59 70 06/26/23 00:48 73 06/26/23 00:00 77 24 125/84 93 L 06/25/23 23:00 93 L 06/25/23 22:46 73 06/25/23 22:30 83 06/25/23 21:45 98.1 F 89 28 H 127/65 96 Intake and Output 06/25/23 06/25/23 06/26/23 14:59 22:59 06:59 Other: Weight 81.647 kg GENERAL EXAM: Alert, 70-year-old white female , comfortable in no apparent distress. HEAD: Normocephalic and atraumatic EYES: Normal reaction of pupils, equal size. NOSE: Clear with pink turbinates. THROAT: No erythema or exudates. NECK: No masses, no JVD. CHEST: No chest wall deformity. LUNGS: Equal air entry with expiratory wheezes heard throughout. No crackles or focal dullness. On 3 L/m nasal cannula. No conversational dyspnea or accessory muscle use.. CVS: S1 and S2 normal with no audible murmur, regular rhythm. No extra heart sounds ABDOMEN: No hepatosplenomegaly, active bowel sounds, no guarding or rigidity. SPINE: No scoliosis or deformity SKIN: No rashes CENTRAL NERVOUS SYSTEM: No focal deficits, tone is normal in all 4 extremities. EXTREMITIES: There is 2+ bilateral lower extremity pitting edema. No clubbing, or cyanosis. Peripheral pulses are intact. Results - Laboratory Findings CBC and BMP: 06/25/23 21:57 06/25/23 21:57 PT/INR, D-dimer PT 12.5 sec (10.0-12.5) 06/25/23 21:57 INR 1.2 (<1.2) H 06/25/23 21:57 Abnormal lab findings: Abnormal Labs 06/25/23 06/25/23 06/25/23 21:57 21:57 21:57 RBC 3.66 L Hgb 10.6 L MCHC 30.1 L RDW 16.8 H Lymphocytes # 0.7 L INR 1.2 H Carbon Dioxide 39 H BUN 40 H Creatinine 1.77 H Glucose 124 H Troponin I 06/25/23 06/26/23 21:57 01:22 RBC Hgb MCHC RDW Lymphocytes # INR Carbon Dioxide BUN Creatinine Glucose Troponin I 0.063 H* 0.059 H* - Diagnostic Findings Chest x-ray: image reviewed Assessment and Plan Assessment: Acute on chronic hypoxemic respiratory failure, secondary to a combination of ex acerbation of diastolic congestive heart failure and acute COPD exacerbation. Chest x-ray on arrival showed cardiomegaly with bilateral pleural effusions right greater than left with likely compressive atelectasis, however, underlying infectious process could not be ruled out . Severe oxygen dependent COPD, and the patient has chronic hypoxic respiratory failure normally on 3 L Chronic hypoxemic respiratory failure, normally maintained on 3 L/m nasal cannula secondary to above Severe pulmonary hypertension Chronic kidney disease stage IV Anemia of chronic disease Paroxysmal atrial fibrillation, anticoagulated on Eliquis Chronically elevated troponins History of permanent pacemaker implantation, currently ventricularly paced Remote history of breast cancer, with previous lumpectomy and radiation Plan: Patient's medications, labs, chest x-ray reviewed Continue supplemental oxygen. Agree with diuresis, currently receiving Lasix 40 mg IV twice a day Eliquis has been restarted. Patient was started on a combination of bronchodilators, Symbicort inhaler, and IV Solu-Medrol. Check procalcitonin level Rule out COVID and influenza. We will continue to follow and further recommendations are forthcoming I have personally seen and examined the patient, performed the documentation and the assessment and plan as written. Number of minutes spent on the visit:20 78-year-old female patient being seen in joint evaluation along with the nurse practitioner. This evaluation within a more than 30 minutes. The patient presented with hypoxic respiratory failure and shortness of breath. The patient is currently on 42 of oxygen by nasal cannula. The patient is a CHF. The p atient was in for an acute non-ST segment elevation myocardial infarction and the troponins at 0.06 respectively 3. Pro-calcitonin level is negative. The patient's chest x-ray shows CHF with bilateral pleural effusion right more than left. The patient also has a pacemaker over the left anterior chest area. The patient's proBNP level was significantly elevated at 19,700. Creatinine is at 1.7 consistent with chronic kidney disease as the patient has chronic stage IV kidney failure. The patient is currently on Lasix 40 mg IV every 12 hours. The patient remains on DuoNeb updrafts. The patient on anticoagulation with Eliquis 5 mg by mouth twice a day. The patient is also metoprolol XL 75 mg by mouth daily. The chest x-ray was noted. EKG was also noted and it shows a paced cardiac rhythm. In terms of previous echocardiogram reports, the patient had echocardiogram on 11/14/2021 that showed a preserved LV function with an ejection fraction of 40-45%. The patient had no obvious regional wall motion abnormalities. The patient severe pulmonary hypertension with a PA pressure estimated to be around 67 and severe RV dilatation and mild degree of aortic stenosis. The patient has previous history of atrial fibrillation. COPD. CHF. Nonocclusive coronary artery disease and has a permanent pacemaker in place. Time with Patient: Greater than 30
[2023-06-26] MEDS: IPRATROPIUM-ALBUTEROL 3 ML NEB INHALATION PRN ×2 (05:56→15:50)
[2023-06-26] MEDS: methylPREDNISolone SOD SUCCI 125 MG/2 ML VIAL IV SCH ×3 (06:26→17:18)
[2023-06-26] MEDS: ALBUTEROL NEBULIZED 2.5 MG/3 ML INHALATION SCH ×4 (08:21→19:39)
[2023-06-26] MEDS: CHOLECALCIFEROL 25 MCG (1000 IU) TABLET PO SCH (09:05)
[2023-06-26] MEDS: PANTOPRAZOLE 40 MG TABLET PO SCH ×2 (09:06→17:18)
[2023-06-26] MEDS: APIXABAN 5 MG TAB PO SCH ×2 (09:06→20:18)
[2023-06-26] MEDS: MAGNESIUM OXIDE 400 MG TAB PO SCH (09:06)
[2023-06-26] MEDS: FERROUS SULFATE 325 MG TAB PO SCH (09:07)
[2023-06-26] MEDS: POTASSIUM CHLORIDE ER 20 MEQ TAB.ER PO SCH (09:07)
[2023-06-26] MEDS: FUROSEMIDE 10 MG/ML 4 ML VIAL IV SCH ×2 (09:07→20:19)
[2023-06-26] MEDS: allopurinoL 300 MG TAB PO SCH (09:50)
[2023-06-26] MEDS: SYMBICORT 160-4.5 MCG INHALER INHALATION SCH ×2 (11:01→19:40)
[2023-06-26] MEDS: DAPAGLIFLOZIN PROPANEDIOL 10 MG TABLET PO SCH (13:26)
[2023-06-26] MEDS ORDERED: FUROSEMIDE 10 MG/ML 2 ML VIAL IV STA (13:41)
--- NOTE | 2023-06-26 13:42 | P.HPIM ---
History of Present Illness H&P Date: 06/26/23 Chief Complaint: Shortness of breath * 78-year-old patient with past medical history significant for congestive heart failure, chronic kidney disease, history of a defibrillation status post pacemaker in place, previous history of breast cancer status post lumpectomy and radiation, COPD on home oxygen, presented to the emergency department with complaints of progressive shortness of breath. At baseline patient weighs 3 L of oxygen, however patient has been having more exertional shortness of breath as well as chest pain. This was associated with nonproductive cough, patient denies associated fever, chills, nausea, vomiting with 6 contact. states her symptoms started 1 week ago around when she went up with the family. Patient states she had her Lasix during that time and started to feel short of breath since then. She has noticed increased swelling and lower extremity as well * Workup initiated in ER included a chest x-ray which showed bilateral pleural effusions as well as cardiomegaly. * Workup in ER included CBC which were WBC count of 6.5 hemoglobin 10.6 platelet 190, serum chemistry shows sodium 145 potassium 4.5 chloride 98 , serum bicarbonate 39 BU and 40 creatinine 1.77. * Patient had elevated troponin which remained flat in ED, N-terminal proBNP was noted to be 19,700, * EKG obtained in ER showed paced rhythm * Patient to be admitted to medical floor with consultation from pulmonary medicine and cardiology REVIEW OF SYSTEMS: Shortness of breath, lower extremity edema, cough, weakness CONSTITUTIONAL: No fever, no malaise, no fatigue. HEENT: No recent visual problems or hearing problems. Denied any sore throat. CARDIOVASCULAR: Shortness of breath, lower extremity edema, cough, weakness PULMONARY:Shortness of breath, lower extremity edema, cough, weakness GASTROINTESTINAL: No diarrhea, no nausea, no vomiting, no abdominal pain. NEUROLOGICAL: No headaches, no weakness, no numbness. HEMATOLOGICAL: Denies any bleeding or petechiae. GENITOURINARY: Denies any burning micturition, frequency, or urgency. MUSCULOSKELETAL/RHEUMATOLOGICAL: Denies any joint pain, swelling, or any muscle pain. ENDOCRINE: Denies any polyuria or polydipsia. PHYSICAL EXAMINATION: GENERAL: The patient is alert and oriented x3, ill appearance, nasal cannula in place, use of accessory muscle HEENT: Pupils are round and equally reacting to light. EOMI. CARDIOVASCULAR: S1 and S2 present. No murmurs, rubs, or gallops. PULMONARY: Decreased breath sounds were bilaterally, crackles audible ABDOMEN: Soft, nontender, nondistended, normoactive bowel sounds. No palpable organomegaly. MUSCULOSKELETAL: Bilateral lower extremity edema EXTREMITIES: No cyanosis, clubbing, or pedal edema. NEUROLOGICAL: Gross neurological examination did not reveal any focal deficits. Past Medical History Past Medical History: Atrial Fibrillation, Asthma, Cancer, Heart Failure, COPD, GERD/Reflux, Skin Disorder Additional Past Medical History / Comment(s): COPD, asthma, breast cancer-right lumpectomy and radiation therapy 25 years ago, wears 3L NC at home, chronic atrial fibrillation, CHF (systolic ). Arthritis, dry patch on right leg, gout History of Any Multi-Drug Resistant Organisms: None Reported Past Surgical History: Section, Heart Catheterization, Hernia Repair, Pacemaker Additional Past Surgical History / Comment(s): left hand surgery for broken index and middle finger Past Anesthesia/Blood Transfusion Reactions: No Reported Reaction Type of Cardiac Device: Permanent Pacemaker Device Placement Date:: 07/2021 Past Psychological History: Depression Smoking Status: Former smoker - Past Family History Mother Family Medical History: Diabetes Mellitus Medications and Allergies Home Medications Medication Instructions Recorded Confirmed Type Apixaban [Eliquis] 5 mg PO BID 11/12/22 06/25/23 History Cholecalciferol [Vitamin D3 (25 75 mcg PO DAILY 11/12/22 06/25/23 History Mcg = 1000 Iu)] Col[facility].6 [facility] 11/12/22 06/25/23 History Ferrous Sulfate [Iron (65 MG 325 mg PO DAILY 11/12/22 06/25/23 History Elemental)] Fexofenadine HCl [Jamee Allergy] 180 mg PO HS 11/12/22 06/25/23 History Ipratropium/Albuter 20-100Mcg 1 puff INHALATION RT-QID PRN 11/12/22 06/25/23 History [Combivent Respimat 20-100Mcg Inhaler] Magnesium Oxide [Mag-Ox] 400 mg PO DAILY 11/12/22 06/25/23 History Metoprolol Succinate [Metoprolol 75 mg PO HS 11/12/22 06/25/23 History Succinate ER] Montelukast [Singulair] 10 mg PO HS 11/12/22 06/25/23 History Pantoprazole [Protonix] 40 mg PO BID 11/12/22 06/25/23 History Potassium Chloride ER [K-Dur 20] 20 meq PO DAILY 11/12/22 06/25/23 History Power C Supplement 2 tab PO DAILY 11/12/22 06/25/23 History Vitamin B Complex 1 cap PO DAILY 11/12/22 06/25/23 History allopurinoL [Zyloprim] 150 mg PO DAILY 11/12/22 06/25/23 History Albuterol Inhaler [Ventolin Hfa 2 puff INHALATION RT-QID PRN #1 11/19/22 06/25/23 Rx Inhaler] each Furosemide [Lasix] 40 mg PO BID@0900,1600 #60 tab 11/19/22 06/25/23 Rx Ipratropium-Albuterol Nebulize 3 ml INHALATION RT-Q3H 06/25/23 06/25/23 History [Duoneb 0.5 mg-3 mg/3 ml Soln] Allergies Allergy/AdvReac Type Severity Reaction Status Date / Time aspirin Allergy Anaphylaxis Verified 06/25/23 22:13 ibuprofen Allergy Anaphylaxis Verified 06/25/23 22:13 Physical Exam Vitals: Vital Signs Temp Pulse Resp BP Pulse Ox 06/26/23 09:08 77 18 126/82 96 06/26/23 08:32 80 06/26/23 08:21 79 96 06/26/23 06:08 76 06/26/23 06:00 80 24 127/70 92 L 06/26/23 05:56 79 06/26/23 05:00 75 24 113/86 93 L 06/26/23 04:00 74 24 102/69 93 L 06/26/23 03:00 75 24 118/69 93 L 06/26/23 01:00 78 24 132/70 94 L 06/26/23 00:59 70 06/26/23 00:48 73 06/26/23 00:00 77 24 125/84 93 L 06/25/23 23:00 93 L 06/25/23 22:46 73 06/25/23 22:30 83 06/25/23 21:45 98.1 F 89 28 H 127/65 96 Intake and Output 06/25/23 06/26/23 06/26/23 22:59 06:59 14:59 Other: Weight 81.647 kg Results CBC & Chem 7: 06/25/23 21:57 06/25/23 21:57 Labs: Abnormal Lab Results - Last 24 Hours (Table) 06/25/23 06/25/23 06/25/23 Range/Units 21:57 21:57 21:57 RBC 3.66 L (3.80-5.40) m/uL Hgb 10.6 L (11.4-16.0) gm/dL MCHC 30.1 L (31.0-37.0) g/dL RDW 16.8 H (11.5-15.5) % Lymphocytes # 0.7 L (1.0-4.8) k/uL INR 1.2 H (<1.2) Carbon Dioxide 39 H (22-30) mmol/L BUN 40 H (7-17) mg/dL Creatinine 1.77 H (0.52-1.04) mg/dL Glucose 124 H (74-99) mg/dL Troponin I (0.000-0.034) ng/mL 06/25/23 06/26/23 06/26/23 Range/Units 21:57 01:22 04:47 RBC (3.80-5.40) m/uL Hgb (11.4-16.0) gm/dL MCHC (31.0-37.0) g/dL RDW (11.5-15.5) % Lymphocytes # (1.0-4.8) k/uL INR (<1.2) Carbon Dioxide (22-30) mmol/L BUN (7-17) mg/dL Creatinine (0.52-1.04) mg/dL Glucose (74-99) mg/dL Troponin I 0.063 H* 0.059 H* 0.060 H* (0.000-0.034) ng/mL Assessment and Plan Assessment: Assessment and plan * Acute on chronic congestive heart failure diastolic dysfunction * Acute on chronic hypoxic respiratory failure multifactorial COPD, CHF exacerbation * Severe COPD with chronic hypoxia on 3 L of oxygen at baseline * Elevated troponin secondary to type II DC hypoxia * Chronic kidney disease stage IV * Paroxysmal atrial fibrillation on anticoagulation * 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 * In regards to hypoxia, CHF exacerbation continue patient on IV Lasix, cardiology consulted, appreciate input from pulmonary medicine * In regards to COPD exacerbation continue patient on breathing treatments, continue IV Solu-Medrol, pro-calcitonin negative patient tested negative for influenza RSV and Covid * In regards to elevated troponin continue medical management, continue anticoagulation with Eliquis cardiology consulted * In regards to chronic kidney disease follow-up on renal profile while on diuretics, baseline creatinine around 1.59-1.7 * In regards to paroxysmal atrial fibrillation continue patient on anticoagulation with Eliquis, continue patient on metoprolol, continue telemetry monitoring * CODE STATUS is full code Time with Patient: Greater than 30
[2023-06-26] MEDS: METOPROLOL SUCCINATE (ER) 25 MG TAB.ER.24H PO SCH (20:17)
[2023-06-26] MEDS: MONTELUKAST 10 MG TAB PO SCH (20:18)
[2023-06-26] MEDS: LORATADINE 10 MG TAB PO SCH (20:19)
[2023-06-27] MEDS: methylPREDNISolone SOD SUCCI 125 MG/2 ML VIAL IV SCH ×5 (00:33→23:46)
[2023-06-27] MEDS: IPRATROPIUM-ALBUTEROL 3 ML NEB INHALATION PRN (03:55)
[2023-06-27] MEDS: PANTOPRAZOLE 40 MG TABLET PO SCH ×2 (07:01→18:19)
[2023-06-27] MEDS: SYMBICORT 160-4.5 MCG INHALER INHALATION SCH ×2 (07:58→21:17)
[2023-06-27] MEDS: ALBUTEROL NEBULIZED 2.5 MG/3 ML INHALATION SCH ×4 (07:58→21:16)
--- NOTE | 2023-06-27 08:28 | XR ---
EXAMINATION TYPE: XR chest 1V DATE OF EXAM: 06/27/2023 HISTORY: Shortness of breath. COMPARISON: 06/25/2023 TECHNIQUE: Single view of the chest is submitted. FINDINGS: Demonstrated are scattered senescent parenchymal change. Stable left perihilar and basilar infiltrates right lower lobe as well as small associated pleural ef fusion. The heart is stable. Hilar and mediastinal structures are within normal limits. Degenerative changes are seen of the dorsal spine. IMPRESSION: 1. Stable left perihilar and basilar infiltrates right lower lobe as well as small associated pleura l effusion.
[2023-06-27] MEDS: APIXABAN 5 MG TAB PO SCH ×2 (09:22→21:02)
[2023-06-27] MEDS: FERROUS SULFATE 325 MG TAB PO SCH (09:23)
[2023-06-27] MEDS: allopurinoL 300 MG TAB PO SCH (09:23)
[2023-06-27] MEDS: POTASSIUM CHLORIDE ER 20 MEQ TAB.ER PO SCH (09:24)
[2023-06-27] MEDS: MAGNESIUM OXIDE 400 MG TAB PO SCH (09:24)
[2023-06-27] MEDS: FUROSEMIDE 10 MG/ML 4 ML VIAL IV SCH ×2 (09:24→21:03)
[2023-06-27] MEDS: COLCHICINE 0.6 MG EACH PO SCH (09:25)
[2023-06-27] MEDS: DAPAGLIFLOZIN PROPANEDIOL 10 MG TABLET PO SCH (09:25)
[2023-06-27] MEDS: CHOLECALCIFEROL 25 MCG (1000 IU) TABLET PO SCH (09:28)
--- NOTE | 2023-06-27 09:52 | CA ---
Transthoracic Echo Report Name: Taylor Willingham Age: 78 Gender: F : 1945 Exam Date: 06/26/2023 10:12 Exam Location: [facility] Ht (in): 62 Wt (lb): 180 Ordering Physician: Baldomero Cruz MD Attending/Referring Phys: Inspection Manager Bandar Galindo Procedure CPT: Indications: Heart failure Cardiac Hx: Technical Quality: Technically difficult study Contrast 1: Total Dose (mL): Contrast 2: Total Dose (mL): MEASUREMENTS (Male / Female) Normal Values 2D ECHO LV Diastolic Diameter PLAX 4.0 cm 4.2 - 5.9 / 3.9 - 5.3 cm LV Systolic Diameter PLAX 2.8 cm IVS Diastolic Thickness 1.1 cm 0.6 - 1.0 / 0.6 - 0.9 cm LVPW Diastolic Thickness 1.2 cm 0.6 - 1.0 / 0.6 - 0.9 cm LV Relative Wall Thickness 0.6 RV Internal Dim ED PLAX 4.5 cm LVOT Diameter 2.0 cm Aortic Root Diameter 2.8 cm LA Systolic Diameter LX 5.4 cm 3.0 - 4.0 / 2.7 - 3.8 cm LV Diastolic Volume MOD 4C 77.0 cm??? LV Systolic Volume MOD 4C 47.6 cm??? LV Ejection Fraction MOD 4C 38.2 % LV Cardiac Index MOD 4C 1284.5 cm???/min???m??? LV Diastolic Length 4C 7.3 cm LV Systolic Length 4C 7.1 cm Ascending Aorta Diameter 2.8 cm DOPPLER AV Peak Velocity 153.6 cm/s AV Peak Gradient 9.4 mmHg AI Peak Velocity 323.5 cm/s AI Peak Gradient 41.9 mmHg AI Pressure Half Time 976.8 ms LVOT Peak Velocity 86.0 cm/s LVOT Peak Gradient 3.0 mmHg LVOT Velocity Time Integral 17.4 cm LVOT Stroke Volume 54.6 cm??? LVOT Stroke Volume Index 29.8 ml/m??? LVOT Cardiac Index 2381.8 cm???/min???m??? AV Area Cont Eq pk 1.8 cm??? MV Peak Velocity 106.6 cm/s MV Peak Gradient 4.5 mmHg MV Mean Velocity 47.2 cm/s MV Mean Gradient 1.3 mmHg MV Velocity Time Integral 18.6 cm MR Peak Velocity 253.4 cm/s MR Peak Gradient 25.7 mmHg Mitral E Point Velocity 96.7 cm/s Mitral A Point Velocity 29.9 cm/s Mitral E to A Ratio 3.2 MV Deceleration Time 129.1 ms MV E' Velocity 4.9 cm/s Mitral E to MV E' Ratio 19.7 TR Peak Velocity 321.9 cm/s TR Peak Gradient 41.4 mmHg Right Ventricular Systolic Press 51.4 mmHg PV Peak Velocity 84.0 cm/s PV Peak Gradient 2.8 mmHg FINDINGS Left Ventricle Normal LV size and wall thickness. Left ventricular ejection fraction is estimated at 35-40 %. Right Ventricle Severe right ventricular dilatation. RVSP= 51mmHg. Right Atrium Severe right atrial dilatation. Left Atrium Severe left atrial dilatation. Mitral Valve Structurally normal mitral valve. Moderate MR. Aortic Valve Trileaflet aortic valve. Mild to moderate AV calcification. Mild to moderate AI Tricuspid Valve Structurally normal tricuspid valve. Severe TR. Pulmonic Valve Structurally normal pulmonic valve. Trace PI. Pericardium Not well visualized. Aorta Normal size aortic root. CONCLUSIONS Off axis views. Impaired LV function. The EF is 35-40% Moderate mitral regurgitation Mild to moderate aortic regurgitation Severe tricuspid regurgitation Severe pulmonary hypertension Previewed by: Dr. German Corea MD (Electronically Signed) Final Date: 27 June 2023 09:51
[2023-06-27] MEDS: ACETAMINOPHEN TAB 325 MG TAB PO PRN (10:54)
--- NOTE | 2023-06-27 12:20 | P.PN ---
Subjective Progress Note Date: 06/27/23 I am seeing this patient in new consultation today 06/26/2023 in the emergency room as she has progressively become more short of breath over the last couple weeks. Patient is a 78-year-old white female with past medical history significant for oxygen dependent COPD, CHF, chronic kidney disease, atrial fibrillation, permanent pacemaker, breast cancer with previous lumpectomy and radiation , among other things. She follows with a Dr. Ocampo, in [place], and has moved to the area within the last year. Patient states that she's had progressively worsening shortness of breath over the last couple weeks. She is normally oxygen dependent on 3 L/m nasal cannula. Her shortness of breath is mostly exertional. It's accompanied with chest tightness. She's had a dry nonproductive cough. Denies any fevers. Denies sick contacts. She also states that over weekend, she went to [place] with her family, and did not want to take her Lasix. She held her Lasix on her own from to Monday. Her breathing did get worse. She also admits increased lower extremity swelling. Patient is currently sitting up in bed, on 3 L/m nasal cannula, in no acute distress. Chest x-ray on arrival showed cardiomegaly with bilateral pleural effusions right greater than left and likely bibasilar compressive atelectasis, underlying infectious process could not be ruled out. Most recent echocardiogram from October of this year shows borderline LV systolic function with an EF of 50%. Severe pulmonary hypertension with a RVSP of 67 mmHg, severe right ventricular dilation and moderate tricuspid regurgitation. CBC on arrival showed a WBC count of 6.5, hemoglobin 10.6, hematocrit 35.4, platelets 190. BMP on arrival shows sodium 145, potassium 4.4, chloride 98, serum bicarb 39, BUN 40, creatinine 1.77, glucose 124. Troponins were elevated but flat. NT proBNP was significantly elevated 19,700. ECG on arrival showed a ventricular paced rhythm. Hemodynamically stable. today's evaluation of 06/27/2023, the patient is still having difficulty breathing. She remains on oxygen 5 L/m nasal cannula. Repeat chest x-ray was doneand it showed cardiomegaly and stable perihilar and bibasilar interstitial markings along with small bilateral pleural effusion consistent with CHF. Echocardiogram was done yesterday and the patient was found to have a left insular ejection fraction of 35-40% with moderate MR, [id number] aortic regurgitation, severe tricuspid regurgitation and severe pulmonary hypertension. Labs from today are still pending. Creatinine was elevated at 1.77. Her pr oBNP level was 19,700 and the patient also had troponin levels of 0.06 and 0.05 and 0.06 respectively. The viral screen was negative including Covid 19. She is on Symbicort. She is on DuoNeb updrafts. She is on IV Solu-Medrol 60 mg every 6 hours. She is on Lasix 40 mg every 12 hours. She is also on anticoagulation with Eliquis. The fluid balance has not been accurately measured. She seems to be in a negative fluid balance for now. Objective - Vital Signs Vital signs: Vital Signs Temp 98.3 F 06/27/23 08:16 Pulse 72 06/27/23 11:53 Resp 20 06/27/23 10:53 BP 116/86 06/27/23 10:53 Pulse Ox 92 L 06/27/23 10:53 FiO2 Intake & Output 06/26/23 06/27/23 06/27/23 18:59 06:59 18:59 Output Total 400 Balance -400 Output: Urine 400 Other: # Voids 3 - Exam GENERAL EXAM: Alert, 70-year-old white female , comfortable in no apparent distress. HEAD: Normocephalic and atraumatic EYES: Normal reaction of pupils, equal size. NOSE: Clear with pink turbinates. THROAT: No erythema or exudates. NECK: No masses, no JVD. CHEST: No chest wall deformity. LUNGS: Equal air entry with expiratory wheezes heard throughout. No crackles or focal dullness. On 5 L/m nasal cannula. No conversational dyspnea or accessory muscle use.. CVS: S1 and S2 normal with no audible murmur, regular rhythm. No extra heart sounds ABDOMEN: No hepatosplenomegaly, active bowel sounds, no guarding or rigidity. SPINE: No scoliosis or deformity SKIN: No rashes CENTRAL NERVOUS SYSTEM: No focal deficits, tone is normal in all 4 extremities. EXTREMITIES: There is 2+ bilateral lower extremity pitting edema. No clubbing, or cyanosis. Peripheral pulses are intact. - Labs CBC & Chem 7: 06/25/23 21:57 06/25/23 21:57 Assessment and Plan Assessment: Acute on chronic hypoxemic respiratory failure, secondary to a combination of exacerbation of systolic congestive heart failure/biventricular heart failure as the patient has LV dysfunction with an ejection fraction of 35% addition to valvular insufficiency involving the mitral and aortic valve and severe tricuspid regurgitation with severe pulmonary hypertension. The RV is also severely dilated. Patient also has a component of acute COPD exacerbation. Chest x-ray on arrival showed cardiomegaly with bilateral pleural effusions right greater than left with likely compressive atelectasis, however, underlying infectious process could not be ruled out .patient is currently on 5 L of O2 nasal cannula Severe oxygen dependent COPD, and the patient has chronic hypoxic respiratory failure normally on 3 L Chronic hypoxemic respiratory failure, normally maintained on 3 L/m nasal cannula secondary to above Severe pulmonary hypertension Chronic kidney disease stage IV Anemia of chronic disease Paroxysmal atrial fibrillation, anticoagulated on Eliquis Chronically elevated troponins History of permanent pacemaker implantation, currently ventricularly paced Remote history of breast cancer, with previous lumpectomy and radiation Nonocclusive coronary artery disease Previous history of atrial fibrillation Plan: reviewed the echocardiogram and the patient has biventricular failure Continue diuretics Continue bronchodilators and steroids Continue anticoagulation with Eliquis Monitor renal function Titrate FiO2 to maintain a saturation above 90% We'll continue to follow. Should be admitted to the medical floor.
[2023-06-27 12:30] LABS: Anisocytosis Slight; Basophils % (A) 0 %; Eosinophils % (A) 0 %; HCT 34.9 % (34.0-46.0); HGB 10.3 gm/dL (11.4-16.0); Hypochromasia Marked; Lymphocytes # (A) 0.4 k/uL (1.0-4.8); Lymphocytes % (A) 4 %; MCH 28.8 pg (25.0-35.0); MCHC 29.6 g/dL (31.0-37.0); MCV 97.3 fL (80.0-100.0); Macrocytosis Slight; Mean Platelet Volume 9.7; Monocytes # (A) 0.4 k/uL (0-1.0); Monocytes % (A) 4 %; Neutrophils # (A) 9.2 k/uL (1.3-7.7); Neutrophils % (A) 93 %; Platelet Count 192 k/uL (150-450); RBC 3.58 m/uL (3.80-5.40); RDW 17.1 % (11.5-15.5)
[2023-06-27 12:47] LABS: ALT 29 U/L (4-34); AST 35 U/L (14-36); African American GFR (CKD) 26 (>60 ml/min/1.73 sqM); Albumin 3.7 g/dL (3.5-5.0); Alkaline Phosphatase 85 U/L (38-126); Blood Urea Nitrogen 56 mg/dL (7-17); Calcium 9.2 mg/dL (8.4-10.2); Chloride 94 mmol/L (98-107); Glucose 164 mg/dL (74-99); Magnesium 2.3 mg/dL (1.6-2.3); Non-African American GFR(CKD) 22 (>60 ml/min/1.73 sqM); Phosphorus 4.8 mg/dL (2.5-4.5); Potassium 4.6 mmol/L (3.5-5.1); Sodium 142 mmol/L (137-145); Total Bilirubin 1.4 mg/dL (0.2-1.3); Total Protein 6.9 g/dL (6.3-8.2)
[2023-06-27 12:53] LABS: Anion Gap 12 mmol/L; Carbon Dioxide 36 mmol/L (22-30)
[2023-06-27 12:54] LABS: NT-Pro-B-Type Natriuretic Pept 28600 pg/mL
--- NOTE | 2023-06-27 13:31 | P.PN ---
Subjective Progress Note Date: 06/27/23 * 78-year-old patient with past medical history significant for congestive heart failure, chronic kidney disease, history of a defibrillation status post pacemaker in place, previous history of breast cancer status post lumpectomy and radiation, COPD on home oxygen, presented to the emergency department with complaints of progressive shortness of breath. At baseline patient weighs 3 L of oxygen, however patient has been having more exertional shortness of breath as well as chest pain. This was associated with nonproductive cough, patient denies associated fever, chills, nausea, vomiting with 6 contact. states her symptoms started 1 week ago around when she went up with the family. Patient states she had her Lasix during that time and started to feel short of breath since then. She has noticed increased swelling and lower extremity as well * Workup initiated in ER included a chest x-ray which showed bilateral pleural effusions as well as cardiomegaly. * Workup in ER included CBC which were WBC count of 6.5 hemoglobin 10.6 platelet 190, serum chemistry shows sodium 145 potassium 4.5 chloride 98 , serum bicarbonate 39 BU and 40 creatinine 1.77. * Patient had elevated troponin which remained flat in ED, N-terminal proBNP was noted to be 19,700, * EKG obtained in ER showed paced rhythm * Patient to be admitted to medical floor with consultation from pulmonary med icine and cardiology * 06/27/2023: Patient seen and evaluated bedside patient seen in ER room 1, [facility], continue patient on diuresis the patient input from pulmonary medicine, blood work reviewed, serum chemistry reviewed creatinine 2.09. N- terminal proBNP [id number] REVIEW OF SYSTEMS: Shortness of breath, lower extremity edema, cough, weakness CONSTITUTIONAL: No fever, no malaise, no fatigue. HEENT: No recent visual problems or hearing problems. Denied any sore throat. CARDIOVASCULAR: Shortness of breath, lower extremity edema, cough, weakness PULMONARY:Shortness of breath, lower extremity edema, cough, weakness GASTROINTESTINAL: No diarrhea, no nausea, no vomiting, no abdominal pain. NEUROLOGICAL: No headaches, no weakness, no numbness. HEMATOLOGICAL: Denies any bleeding or petechiae. GENITOURINARY: Denies any burning micturition, frequency, or urgency. MUSCULOSKELETAL/RHEUMATOLOGICAL: Denies any joint pain, swelling, or any muscle pain. ENDOCRINE: Denies any polyuria or polydipsia. PHYSICAL EXAMINATION: GENERAL: The patient is alert and oriented x3, ill appearance, nasal cannula in place, HEENT: Pupils are round and equally reacting to light. EOMI. CARDIOVASCULAR: S1 and S2 present. No murmurs, rubs, or gallops. PULMONARY: Decreased breath sounds were bilaterally, crackles audible ABDOMEN: Soft, nontender, nondistended, normoactive bowel sounds. No palpable organomegaly. MUSCULOSKELETAL: Bilateral lower extremity edema EXTREMITIES: No cyanosis, clubbing, or pedal edema. NEUROLOGICAL: Gross neurological examination did not reveal any focal deficits. Objective - Vital Signs Vital signs: Vital Signs Temp 98.3 F 06/27/23 08:16 Pulse 72 06/27/23 11:53 Resp 20 06/27/23 10:53 BP 116/86 06/27/23 10:53 Pulse Ox 92 L 06/27/23 10:53 FiO2 Intake & Output 06/26/23 06/27/23 06/27/23 18:59 06:59 18:59 Output Total 400 Balance -400 Output: Urine 400 Other: # Voids 3 - Labs CBC & Chem 7: 06/27/23 11:59 06/27/23 11:59 Labs: Abnormal Lab Results - Last 24 Hours (Table) 06/27/23 06/27/23 Range/Units 11:59 11:59 RBC 3.58 L (3.80-5.40) m/uL Hgb 10.3 L (11.4-16.0) gm/dL MCHC 29.6 L (31.0-37.0) g/dL RDW 17.1 H (11.5-15.5) % Neutrophils # 9.2 H (1.3-7.7) k/uL Lymphocytes # 0.4 L (1.0-4.8) k/uL Chloride 94 L (98-107) mmol/L Carbon Dioxide 36 H (22-30) mmol/L BUN 56 H (7-17) mg/dL Creatinine 2.09 H (0.52-1.04) mg/dL Glucose 164 H (74-99) mg/dL Phosphorus 4.8 H (2.5-4.5) mg/dL Total Bilirubin 1.4 H (0.2-1.3) mg/dL Assessment and Plan Assessment: Assessment and plan * Acute on chronic congestive heart failure diastolic dysfunction * Acute on chronic hypoxic respiratory failure multifactorial COPD, CHF exacerbation * Severe COPD with chronic hypoxia on 3 L of oxygen at baseline * Elevated troponin secondary to type II IA hypoxia * Chronic kidney disease stage IV * Paroxysmal atrial fibrillation on anticoagulation * 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 * In regards to hypoxia, CHF exacerbation continue patient on IV Lasix, cardiology consulted, appreciate input from pulmonary medicine, follow-up [facility] x-ray shows bibasilar infiltrates likely secondary to CHF * In regards to COPD exacerbation continue patient on breathing treatments, continue IV Solu-Medrol, pro-calcitonin negative patient tested negative for influenza RSV and Covid * In regards to elevated troponin continue medical management, continue anticoagulation with Eliquis cardiology consulted * In regards to chronic kidney disease follow-up on renal profile while on diuretics, baseline creatinine around 1.59-1.7, monitor renal function while on diuretic * In regards to paroxysmal atrial fibrillation continue patient on anticoagulati on with Eliquis, continue patient on metoprolol, continue telemetry monitoring * CODE STATUS is full code Time with Patient: Greater than 30
--- NOTE | 2023-06-27 13:38 | P.CRDCN ---
History of Present Illness Consult date: 06/26/23 Consult reason: congestive heart failure History of present illness: This is a 78-year-old female patient of Dr. Benitez with a past medical history significant of persistent atrial fibrillation on anticoagulation with eliquis, COPD, nonischemic cardiomyopathy, permanent pacemaker implantation, nonobstructive coronary artery disease. We have been asked to see the patient in consultation for congestive heart failure. Patient is seen today in the emergency center. Patient states that she came in the hospital because she could not breathe right. She states that she initially started with diarrhea for 3 days that has resolved.. She states she has some chest pain is worse with deep breathing. She was also had quite a bit of increased lower extremity edema. She has not been taking her Lasix for the past 4 days. She denies any wheezing, no nausea or vomiting. Patient denies smoking. EKG reveals paced rhythm with underlying atrial fibrillation Chest xray heart is enlarged. Bilateral pleural effusions right greater than left, basilar airspace opacities bilaterally WBC 6.5, hemoglobin 10.6, platelet count 190. INR 1.2. Sodium 145, potassium 4.4, CO2 39, BUN 40 creatinine 1.77. Troponin 0.063, 0.059 and 0.06. Pro-calcitonin 0.07. Influenza A, influenza B, RSV, Covid 19 not detected. Current home cardiac medications: Eliquis 5 mg twice daily, Lasix 40 mg twice daily, Toprol-XL 75 mg at bedtime, potassium chloride 20 mg once daily. Most recent echocardiogram obtained in October 2022 revealed ejection fraction 50%, severe pulmonary hypertension, moderate tricuspid regurgitation, and mild aortic stenosis REVIEW OF SYSTEMS: At the time of my exam: CONSTITUTIONAL: Denies fever or chills. HEENT: Denies blurred vision, vision changes, or eye pain. Denies hemoptysis CARDIOVASCULAR: + chest pain. Denies orthopnea. Denies PND. Denies palpitations RESPIRATORY: + shortness of breath. GASTROINTESTINAL: Denies abdominal pain. Denies nausea or vomiting. HEMATOLOGIC: Denies bleeding disorders. GENITOURINARY: Denies any blood in urine. SKIN: Denies pruitis. Denies rash. PHYSICAL EXAM: VITAL SIGNS: Reviewed. GENERAL: Well-developed in no acute distress. HEENT: Head is normocephalic. Pupils are equal, round. Sclerae anicteric. Mucous membranes of the mouth are moist. Neck supple. No JVD or thyromegaly LUNGS: Lungs diminished on the right with bilateral wheezing. HEART: Regular rate and rhythm. S1 and S2 heard. ABDOMEN: Soft. Nondistended. Nontender. EXTREMITIES: No clubbing or cyanosis. Peripheral pulses intact. Minimum bilateral lower extremity edema NEUROLOGIC: Awake and alert. Oriented x 3. ASSESSMENT: Acute on chronic heart failure with preserved ejection fraction, 50% Severe pulmonary hypertension him a cor pulmonale Elevated troponins secondary to type II [place] Permanent atrial fibrillation History of pacemaker implantation History of COPD with home oxygen use Nonobstructive coronary artery disease, per patient, cath report not available for review PLAN: Continue patient on IV Lasix 40 mg every 12 Monitor I&O, daily weights, electrolytes and renal function Resume patient's home cardiac medications Start patient on Farxiga 10 milligrams daily Repeat BNP and BMP in the morning Obtain 2-D echocardiogram Further recommendations pending patient course Nurse practitioner note has been reviewed by physician. Signing provider agrees with the documented findings, assessment, and plan of care. Past Medical History Past Medical History: Atrial Fibrillation, Asthma, Cancer, Heart Failure, COPD, GERD/Reflux, Skin Disorder Additional Past Medical History / Comment(s): COPD, asthma, breast cancer-right lumpectomy and radiation therapy 25 years ago, wears 3L NC at home, chronic atrial fibrillation, CHF (systolic ). Arthritis, dry patch on right leg, gout History of Any Multi-Drug Resistant Organisms: None Reported Past Surgical History: Section, Heart Catheterization, Hernia Repair, Pacemaker Additional Past Surgical History / Comment(s): left hand surgery for broken index and middle finger Past Anesthesia/Blood Transfusion Reactions: No Reported Reaction Type of Cardiac Device: Permanent Pacemaker Device Placement Date:: 07/2021 Past Psychological History: Depression Smoking Status: Former smoker - Past Family History Mother Family Medical History: Diabetes Mellitus Medications and Allergies Home Medications Medication Instructions Recorded Confirmed Type Apixaban [Eliquis] 5 mg PO BID 11/12/22 06/25/23 History Cholecalciferol [Vitamin D3 (25 75 mcg PO DAILY 11/12/22 06/25/23 History Mcg = 1000 Iu)] Colchicine 0.6 mg PO TUTH 11/12/22 06/25/23 History Ferrous Sulfate [Iron (65 MG 325 mg PO DAILY 11/12/22 06/25/23 History Elemental)] Fexofenadine HCl [Jamee Allergy] 180 mg PO HS 11/12/22 06/25/23 History Ipratropium/Albuter 20-100Mcg 1 puff INHALATION RT-QID PRN 11/12/22 06/25/23 History [Combivent Respimat 20-100Mcg Inhaler] Magnesium Oxide [Mag-Ox] 400 mg PO DAILY 11/12/22 06/25/23 History Metoprolol Succinate [Metoprolol 75 mg PO HS 11/12/22 06/25/23 History Succinate ER] Montelukast [Singulair] 10 mg PO HS 11/12/22 06/25/23 History Pantoprazole [Protonix] 40 mg PO BID 11/12/22 06/25/23 History Potassium Chloride ER [K-Dur 20] 20 meq PO DAILY 11/12/22 06/25/23 History Power C Supplement 2 tab PO DAILY 11/12/22 06/25/23 History Vitamin B Complex 1 cap PO DAILY 11/12/22 06/25/23 History allopurinoL [Zyloprim] 150 mg PO DAILY 11/12/22 06/25/23 History Albuterol Inhaler [Ventolin Hfa 2 puff INHALATION RT-QID PRN #1 11/19/22 06/25/23 Rx Inhaler] each Furosemide [Lasix] 40 mg PO BID@0900,1600 #60 tab 11/19/22 06/25/23 Rx Ipratropium-Albuterol Nebulize 3 ml INHALATION RT-Q3H 06/25/23 06/25/23 History [Duoneb 0.5 mg-3 mg/3 ml Soln] Allergies Allergy/AdvReac Type Severity Reaction Status Date / Time aspirin Allergy Anaphylaxis Verified 06/25/23 22:13 ibuprofen Allergy Anaphylaxis Verified 06/25/23 22:13 Physical Exam Vitals: Vital Signs Temp Pulse Resp BP Pulse Ox 06/26/23 08:32 80 06/26/23 08:21 79 96 06/26/23 06:08 76 06/26/23 06:00 80 24 127/70 92 L 06/26/23 05:56 79 06/26/23 05:00 75 24 113/86 93 L 06/26/23 04:00 74 24 102/69 93 L 06/26/23 03:00 75 24 118/69 93 L 06/26/23 01:00 78 24 132/70 94 L 06/26/23 00:59 70 06/26/23 00:48 73 06/26/23 00:00 77 24 125/84 93 L 06/25/23 23:00 93 L 06/25/23 22:46 73 06/25/23 22:30 83 06/25/23 21:45 98.1 F 89 28 H 127/65 96 Intake and Output 06/25/23 06/26/23 06/26/23 22:59 06:59 14:59 Other: Weight 81.647 kg Results 06/27/23 11:59 06/27/23 11:59 Cardiac Enzymes 06/25/23 06/25/23 06/26/23 Range/Units 21:57 21:57 01:22 AST 29 (14-36) U/L Troponin I 0.063 H* 0.059 H* (0.000-0.034) ng/mL 06/26/23 Range/Units 04:47 AST (14-36) U/L Troponin I 0.060 H* (0.000-0.034) ng/mL Coagulation 06/25/23 Range/Units 21:57 PT 12.5 (10.0-12.5) sec APTT 26.1 (22.0-30.0) sec CBC 06/25/23 Range/Units 21:57 WBC 6.5 (3.8-10.6) k/uL RBC 3.66 L (3.80-5.40) m/uL Hgb 10.6 L (11.4-16.0) gm/dL Hct 35.4 (34.0-46.0) % Plt Count 190 (150-450) k/uL Comprehensive Metabolic Panel 06/25/23 Range/Units 21:57 Sodium 145 (137-145) mmol/L Potassium 4.4 (3.5-5.1) mmol/L Chloride 98 (98-107) mmol/L Carbon Dioxide 39 H (22-30) mmol/L BUN 40 H (7-17) mg/dL Creatinine 1.77 H (0.52-1.04) mg/dL Glucose 124 H (74-99) mg/dL Calcium 9.2 (8.4-10.2) mg/dL AST 29 (14-36) U/L ALT 24 (4-34) U/L Alkaline Phosphatase 96 (38-126) U/L Total Protein 7.1 (6.3-8.2) g/dL Albumin 3.8 (3.5-5.0) g/dL Current Medications Generic Name Dose Route Start Last Admin Trade Name Freq PRN Reason Stop Dose Admin Albuterol Sulfate 2.5 mg 06/26/23 08:00 06/26/23 08:21 Albuterol Nebulized 2.5 Mg/3 Ml INHALATION 2.5 mg RT-QID [facility] Administration Albuterol/Ipratropium 3 ml 06/26/23 01:50 06/26/23 05:56 Ipratropium-Albuterol 3 Ml Neb INHALATION 3 ml RT-QID PRN Administration Shortness Of Breath Allopurinol 150 mg 06/26/23 09:00 Allopurinol 300 Mg Tab PO DAILY [facility] Apixaban 5 mg 06/26/23 09:00 Apixaban 5 Mg Tab PO BID [facility] Protocol Budesonide/Formoterol Fumarate 2 puff 06/26/23 08:00 Symbicort 160-4.5 Mcg Inhaler INHALATION RT-BID [facility] Cholecalciferol 75 mcg 06/26/23 09:00 Cholecalciferol 25 Mcg (1000 Iu) Tablet PO DAILY [facility] Colchicine 0.6 mg 06/27/23 09:00 Colchicine 0.6 Mg Each PO TUTH [facility] Ferrous Sulfate 325 mg 06/26/23 09:00 Ferrous Sulfate 325 Mg Tab PO DAILY [facility] Furosemide 40 mg 06/26/23 09:00 Furosemide 10 Mg/Ml 4 Ml Vial IV Q12HR [facility] Loratadine 10 mg 06/26/23 21:00 Loratadine 10 Mg Tab PO HS [facility] Magnesium Oxide 400 mg 06/26/23 09:00 Magnesium Oxide 400 Mg Tab PO DAILY [facility] Methylprednisolone Sodium Succinate 60 mg 06/26/23 06:00 12 06:26 Methylprednisolone Sod Succi 125 Mg/2 Ml Vial IV 60 mg Q6HR [facility] Administration Metoprolol Succinate 75 mg 06/26/23 21:00 Metoprolol Succinate (Er) 25 Mg Tab.Er.24h PO HS [facility] Montelukast Sodium 10 mg 06/26/23 21:00 Montelukast 10 Mg Tab PO HS [facility] Morphine Sulfate 4 mg 06/26/23 00:26 Morphine Sulfate 4 Mg/Ml Syringe IV Q4HR PRN Severe Pain (Scale 7 to 10) Naloxone HCl 0.2 mg 06/26/23 00:26 Naloxone 0.4 Mg/Ml 1 Ml Vial IV Q2M PRN Opioid Reversal Ondansetron HCl 4 mg 06/26/23 00:26 Ondansetron 4 Mg/2 Ml Vial IVP Q8HR PRN Nausea And Vomiting Pantoprazole Sodium 40 mg 06/26/23 07:30 Pantoprazole 40 Mg Tablet PO AC-BID [facility] Potassium Chloride 20 meq 06/26/23 09:00 Potassium Chloride Er 20 Meq Tab.Er PO DAILY [facility] Intake and Output 06/25/23 06/26/23 06/26/23 22:59 06:59 14:59 Other: Weight 81.647 kg 06/25/23 21:57 06/25/23 21:57
--- NOTE | 2023-06-27 13:42 | P.PN ---
Subjective Progress Note Date: 06/27/23 This is a 78-year-old female patient of Dr. Benitez with a past medical history significant of persistent atrial fibrillation on anticoagulation with eliquis, COPD, nonischemic cardiomyopathy, permanent pacemaker implantation, nonobstructive coronary artery disease. We have been asked to see the patient in consultation for congestive heart failure. Patient is seen today in the emergency center. Patient states that she came in the hospital because she could not breathe right. She states that she initially started with diarrhea for 3 days that has resolved.. She states she has some chest pain is worse with deep breathing. She was also had quite a bit of increased lower extremity edema. She has not been taking her Lasix for the past 4 days. She denies any wheezing, no nausea or vomiting. Patient denies smoking. EKG reveals paced rhythm with underlying atrial fibrillation Chest xray heart is enlarged. Bilateral pleural effusions right greater than left, basilar airspace opacities bilaterally WBC 6.5, hemoglobin 10.6, platelet count 190. INR 1.2. Sodium 145, potassium 4.4, CO2 39, BUN 40 creatinine 1.77. Troponin 0.063, 0.059 and 0.06. Pro- calcitonin 0.07. Influenza A, influenza B, RSV, Covid 19 not detected. Current home cardiac medications: Eliquis 5 mg twice daily, Lasix 40 mg twice daily, Toprol-XL 75 mg at bedtime, potassium chloride 20 mg once daily. Most recent echocardiogram obtained in October 2022 revealed ejection fraction 50%, severe pulmonary hypertension, moderate tricuspid regurgitation, and mild aortic stenosis 06/27 Patient is seen again today in the emergency center waiting for a bed on the cardiac stepdown unit. Patient states that her breathing is better today. No dizziness. No palpitations. She continues to have some wheezing and minimal lower extremity edema. She has been maintained on IV Lasix 40 mg twice daily and started on Monday. No accurate I&O and daily weights. Heart rate has been in the 70s, blood pressure 116/86, pulse ox 92% on 5 L nasal cannula. Repeat blood work reveals WBC 10, hemoglobin 10.3. Sodium 142, potassium 4.6, BUN 56 and creatinine 2.09. ProBNP is 28,600. Echocardiogram is pending. PHYSICAL EXAM: VITAL SIGNS: Reviewed. GENERAL: Well-developed in no acute distress. HEENT: Head is normocephalic. Pupils are equal, round. Sclerae anicteric. Mucous membranes of the mouth are moist. Neck supple. No JVD or thyromegaly LUNGS: Lungs diminished on the right with bilateral wheezing. HEART: Regular rate and rhythm. S1 and S2 heard. ABDOMEN: Soft. Nondistended. Nontender. EXTREMITIES: No clubbing or cyanosis. Peripheral pulses intact. Minimum bilateral lower extremity edema NEUROLOGIC: Awake and alert. Oriented x 3. ASSESSMENT: Acute on chronic heart failure with preserved ejection fraction, 50% Severe pulmonary hypertension him a cor pulmonale Elevated troponins secondary to type II NE Permanent atrial fibrillation History of pacemaker implantation History of COPD with home oxygen use Nonobstructive coronary artery disease, per patient, cath report not available for review PLAN: Continue patient on IV Lasix 40 mg every 12 Monitor I&O, daily weights, electrolytes and renal function Continue patient's home cardiac medications Continue patient on Farxiga 10 milligrams daily Repeat BNP and BMP in the morning Obtain 2-D echocardiogram Further recommendations pending patient course Nurse practitioner note has been reviewed by physician. Signing provider agrees with the documented findings, assessment, and plan of care. Objective - Vital Signs Vital signs: Vital Signs Temp 98.1 F 06/25/23 21:45 Pulse 76 06/27/23 07:58 Resp 17 06/27/23 06:00 BP 107/78 06/27/23 06:00 Pulse Ox 92 L 06/27/23 07:58 FiO2 Intake & Output 06/26/23 06/27/23 06/27/23 18:59 06:59 18:59 Output Total 400 Balance -400 Output: Urine 400 Other: # Voids 3 - Labs CBC & Chem 7: 06/27/23 11:59 06/27/23 11:59
[2023-06-27] MEDS: METOPROLOL SUCCINATE (ER) 25 MG TAB.ER.24H PO SCH (21:02)
[2023-06-27] MEDS: MONTELUKAST 10 MG TAB PO SCH (21:03)
[2023-06-27] MEDS: LORATADINE 10 MG TAB PO SCH (21:03)
[2023-06-28] MEDS: IPRATROPIUM-ALBUTEROL 3 ML NEB INHALATION PRN ×6 (00:01→21:11)
[2023-06-28] MEDS: PANTOPRAZOLE 40 MG TABLET PO SCH ×2 (05:28→16:49)
[2023-06-28] MEDS: ACETAMINOPHEN TAB 325 MG TAB PO PRN ×3 (05:28→23:04)
[2023-06-28] MEDS: methylPREDNISolone SOD SUCCI 125 MG/2 ML VIAL IV SCH ×3 (05:29→16:50)
[2023-06-28 07:06] LABS: NT-Pro-B-Type Natriuretic Pept 26200 pg/mL
[2023-06-28] MEDS: CHOLECALCIFEROL 25 MCG (1000 IU) TABLET PO SCH (08:36)
[2023-06-28] MEDS: APIXABAN 5 MG TAB PO SCH ×2 (08:37→20:43)
[2023-06-28] MEDS: DAPAGLIFLOZIN PROPANEDIOL 10 MG TABLET PO SCH (08:37)
[2023-06-28] MEDS: FERROUS SULFATE 325 MG TAB PO SCH (08:37)
[2023-06-28] MEDS: FUROSEMIDE 10 MG/ML 4 ML VIAL IV SCH ×2 (08:37→20:43)
[2023-06-28] MEDS: POTASSIUM CHLORIDE ER 20 MEQ TAB.ER PO SCH (08:37)
[2023-06-28] MEDS: allopurinoL 300 MG TAB PO SCH (08:37)
[2023-06-28] MEDS: MAGNESIUM OXIDE 400 MG TAB PO SCH (08:37)
[2023-06-28 08:51] LABS: HCT 34.8 % (37.2-46.3); HGB 9.9 g/dL (12.0-15.0); MCH 27.7 pg (27.0-32.0); MCHC 28.4 g/dL (32.0-37.0); MCV 97.5 FL (80.0-97.0); NRBC Per 100 WBC 0.04 X 10*3/uL (0.00-0.01); Platelet Count 208 X 10*3/uL (140-440); RBC 3.57 X 10*6/uL (4.10-5.20); RDW 18.1 % (11.5-14.5); WBC 9.03 X 10*3/uL (4.50-10.00)
[2023-06-28] MEDS: SYMBICORT 160-4.5 MCG INHALER INHALATION SCH ×2 (09:11→21:12)
[2023-06-28] MEDS: ALBUTEROL NEBULIZED 2.5 MG/3 ML INHALATION SCH ×4 (09:12→21:11)
--- NOTE | 2023-06-28 10:07 | XR ---
EXAMINATION TYPE: XR chest 1V portable DATE OF EXAM: 06/28/2023 CLINICAL HISTORY: Difficulty breathing progress study. CHF. TECHNIQUE: Single AP portable upright view of the chest is obtained. COMPARISON: Chest x-ray from one day earlier FINDINGS: Persistent cardiomegaly with multilead pacemaker. Central vascular congestion is improved from prior. Persistent small right greater than left pleural effusions. IMPRESSION: Findings consistent with CHF exacerbation remain present though improved central vascular congestion noted from one day earlier.
[2023-06-28 11:02] LABS: BUN/Creat Ratio 26.91 Ratio (12.00-20.00); Blood Urea Nitrogen 59.2 mg/dL (9.0-27.0); Calcium 9.4 mg/dL (8.7-10.3); Carbon Dioxide 33.5 mmol/L (21.6-31.8); Chloride 98 mmol/L (96-109); Glucose 155 mg/dL (70-110); Sodium 145 mmol/L (135-145)
--- NOTE | 2023-06-28 12:25 | P.PN ---
Subjective HISTORY OF PRESENT ILLNESS: This is a 78-year-old female patient of Dr. Benitez with a past medical history significant of persistent atrial fibrillation on anticoagulation with eliquis, COPD, nonischemic cardiomyopathy, permanent pacemaker implantation, nonobstructive coronary artery disease. We have been asked to see the patient in consultation for congestive heart failure. Patient is seen today in the emergency center. Patient states that she came in the hospital because she could not breathe right. She states that she initially started with diarrhea for 3 days that has resolved.. She states she has some chest pain is worse with deep breathing. She was also had quite a bit of increased lower extremity edema . She has not been taking her Lasix for the past 4 days. She denies any wheezing, no nausea or vomiting. Patient denies smoking. EKG reveals paced rhythm with underlying atrial fibrillation Chest xray heart is enlarged. Bilateral pleural effusions right greater than left, basilar airspace opacities bilaterally WBC 6.5, hemoglobin 10.6, platelet count 190. INR 1.2. Sodium 145, potassium 4.4, CO2 39, BUN 40 creatinine 1.77. Troponin 0.063, 0.059 and 0.06. Pro- calcitonin 0.07. Influenza A, influenza B, RSV, Covid 19 not detected. Current home cardiac medications: Eliquis 5 mg twice daily, Lasix 40 mg twice daily, Toprol-XL 75 mg at bedtime, potassium chloride 20 mg once daily. Most recent echocardiogram obtained in October 2022 revealed ejection fraction 50%, severe pulmonary hypertension, moderate tricuspid regurgitation, and mild aortic stenosis 06/27 Patient is seen again today in the emergency center waiting for a bed on the cardiac stepdown unit. Patient states that her breathing is better today. No dizziness. No palpitations. She continues to have some wheezing and minimal lower extremity edema. She has been maintained on IV Lasix 40 mg twice daily and started on Monday. No accurate I&O and daily weights. Heart rate has been in the 70s, blood pressure 116/86, pulse ox 92% on 5 L nasal cannula. Repeat blood work reveals WBC 10, hemoglobin 10.3. Sodium 142, potassium 4.6, BUN 56 and creatinine 2.09. ProBNP is 28,600. Echocardiogram is pending. 06/28/2023 Patient examined this morning at the bedside. Patient denies chest pain or pressure. She reports mild shortness of breath. She remains on IV Lasix 40 mg every 12 hours. Creatinine today 2.2. Up from 2.09 yesterday. Echocardiogram completed revealing ejection fraction 35-40%, moderate MR, severe TR, and severe pulmonary hypertension PHYSICAL EXAM: VITAL SIGNS: Reviewed. GENERAL: Well-developed in no acute distress. NECK: Supple. No JVD or thyromegaly LUNGS: Respirations even and unlabored. Lungs diminished with expiratory wheezing noted HEART: Regular rate and rhythm. S1 and S2 heard. EXTREMITIES: Normal range of motion. No clubbing or cyanosis. Peripheral pulses intact. Trace bilateral lower extremity edema ASSESSMENT: Acute on chronic heart failure with preserved ejection fraction, 50%, now with reduced EF 35-40% Severe pulmonary hypertension Elevated troponins secondary to type II CA Permanent atrial fibrillation History of pacemaker implantation History of COPD with home oxygen use Nonobstructive coronary artery disease, per patient, cath report not available for review Acute on chronic kidney disease PLAN: Continue IV Lasix 40 mg every 12 hours Daily weights, accurate I&O, and monitor kidney function Discontinue Farxiga Patient would benefit from CORDELL/ARB and Aldactone when kidney function improves Continue additional cardiac medications Further recommendations pending patient's course Nurse practitioner note has been reviewed by physician. Signing provider agrees with the documented findings, assessment, and plan of care. Objective - Vital Signs Vital signs: Vital Signs Temp 97.9 F 06/28/23 07:24 Pulse 72 06/28/23 12:13 Resp 14 06/28/23 07:24 BP 113/71 06/28/23 07:24 Pulse Ox 90 L 06/28/23 09:12 FiO2 Intake & Output 06/27/23 06/28/23 06/28/23 18:59 06:59 18:59 Weight 85.1 kg Other: # Voids 3 # Bowel Movements 1 - Labs CBC & Chem 7: 06/28/23 05:37 06/28/23 05:37 Labs: Abnormal Lab Results - Last 24 Hours (Table) 06/27/23 06/27/23 06/28/23 Range/Units 11:59 11:59 05:37 RBC 3.58 L 3.57 L (3.80-5.40) m/uL Hgb 10.3 L 9.9 L (11.4-16.0) gm/dL Hct 34.8 L (37.2-46.3) % MCV 97.5 H (80.0-97.0) FL MCHC 29.6 L 28.4 L (31.0-37.0) g/dL RDW 17.1 H 18.1 H (11.5-15.5) % Neutrophils # 9.2 H (1.3-7.7) k/uL Lymphocytes # 0.4 L (1.0-4.8) k/uL NRBC/100 WBC Diff 0.04 H (0.00-0.01) X 10*3/uL Chloride 94 L (98-107) mmol/L Carbon Dioxide 36 H (22-30) mmol/L Anion Gap (4.00-12.00) mmol/L BUN 56 H (7-17) mg/dL Creatinine 2.09 H (0.52-1.04) mg/dL Est GFR (CKD-EPI) (>=60) BUN/Creatinine Ratio (12.00-20.00) Ratio Glucose 164 H (74-99) mg/dL Phosphorus 4.8 H (2.5-4.5) mg/dL Total Bilirubin 1.4 H (0.2-1.3) mg/dL 06/28/23 Range/Units 05:37 RBC (3.80-5.40) m/uL Hgb (11.4-16.0) gm/dL Hct (37.2-46.3) % MCV (80.0-97.0) FL MCHC (31.0-37.0) g/dL RDW (11.5-15.5) % Neutrophils # (1.3-7.7) k/uL Lymphocytes # (1.0-4.8) k/uL NRBC/100 WBC Diff (0.00-0.01) X 10*3/uL Chloride (98-107) mmol/L Carbon Dioxide 33.5 H (22-30) mmol/L Anion Gap 13.50 H (4.00-12.00) mmol/L BUN 59.2 H (7-17) mg/dL Creatinine 2.2 H (0.52-1.04) mg/dL Est GFR (CKD-EPI) 22 L (>=60) BUN/Creatinine Ratio 26.91 H (12.00-20.00) Ratio Glucose 155 H (74-99) mg/dL Phosphorus (2.5-4.5) mg/dL Total Bilirubin (0.2-1.3) mg/dL
--- NOTE | 2023-06-28 12:52 | P.PN ---
Subjective Progress Note Date: 06/28/23 * 78-year-old patient with past medical history significant for congestive heart failure, chronic kidney disease, history of a defibrillation status post pacemaker in place, previous history of breast cancer status post lumpectomy and radiation, COPD on home oxygen, presented to the emergency department with complaints of progressive shortness of breath. At baseline patient weighs 3 L of oxygen, however patient has been having more exertional shortness of breath as well as chest pain. This was associated with nonproductive cough, patient denies associated fever, chills, nausea, vomiting with 6 contact. states her symptoms started 1 week ago around when she went up with the family. Patient states she had her Lasix during that time and started to feel short of breath since then. She has noticed increased swelling and lower extremity as well * Workup initiated in ER included a chest x-ray which showed bilateral pleural effusions as well as cardiomegaly. * Workup in ER included CBC which were WBC count of 6.5 hemoglobin 10.6 platelet 190, serum chemistry shows sodium 145 potassium 4.5 chloride 98 , serum bicarbonate 39 BU and 40 creatinine 1.77. * Patient had elevated troponin which remained flat in ED, N-terminal proBNP was noted to be 19,700, * EKG obtained in ER showed paced rhythm * Patient to be admitted to medical floor with consultation from pulmonary med icine and cardiology * 06/27/2023: Patient seen and evaluated bedside patient seen in ER room 1, [facility] for bed, continue patient on diuresis the patient input from pulmonary medicine, blood work reviewed, serum chemistry reviewed creatinine 2.09. N- terminal proBNP 57218 * 06/28/2023: Patient seen and evaluated bedside, patient in room 485, patient does complain of shortness of breath, follow-up chest x-ray obtained shows slight improvement in pulmonary vascular congestion was on 6 L of oxygen wea jj down to 4 L. Appreciate input from cardiology, WBC within normal limits, serum chemistry and renal function reviewed, creatinine 2.2 N-terminal proBNP 48035. Pro-calcitonin was negative. Once kidney function improved patient will benefit from A/R REVIEW OF SYSTEMS: Shortness of breath, lower extremity edema, cough, weakness CONSTITUTIONAL: No fever, no malaise, no fatigue. HEENT: No recent visual problems or hearing problems. Denied any sore throat. CARDIOVASCULAR: Shortness of breath, lower extremity edema, cough, weakness PULMONARY:Shortness of breath, lower extremity edema, cough, weakness GASTROINTESTINAL: No diarrhea, no nausea, no vomiting, no abdominal pain. NEUROLOGICAL: No headaches, no weakness, no numbness. HEMATOLOGICAL: Denies any bleeding or petechiae. GENITOURINARY: Denies any burning micturition, frequency, or urgency. MUSCULOSKELETAL/RHEUMATOLOGICAL: Denies any joint pain, swelling, or any muscle pain. ENDOCRINE: Denies any polyuria or polydipsia. PHYSICAL EXAMINATION: GENERAL: The patient is alert and oriented x3, ill appearance, nasal cannula in place, HEENT: Pupils are round and equally reacting to light. EOMI. CARDIOVASCULAR: S1 and S2 present. No murmurs, rubs, or gallops. PULMONARY: Decreased breath sounds were bilaterally, ABDOMEN: Soft, nontender, nondistended, normoactive bowel sounds. No palpable organomegaly. MUSCULOSKELETAL: Bilateral lower extremity edema EXTREMITIES: No cyanosis, clubbing, or pedal edema. NEUROLOGICAL: Gross neurological examination did not reveal any focal deficits. Objective - Vital Signs Vital signs: Vital Signs Temp 97.9 F 06/28/23 07:24 Pulse 70 06/28/23 12:25 Resp 14 06/28/23 07:24 BP 113/71 06/28/23 07:24 Pulse Ox 90 L 06/28/23 09:12 FiO2 Intake & Output 06/27/23 06/28/23 06/28/23 18:59 06:59 18:59 Weight 85.1 kg Other: # Voids 3 # Bowel Movements 1 - Labs CBC & Chem 7: 06/28/23 05:37 06/28/23 05:37 Labs: Abnormal Lab Results - Last 24 Hours (Table) 06/27/23 06/28/23 06/28/23 Range/Units 11:59 05:37 05:37 RBC 3.57 L (4.10-5.20) X 10*6/uL Hgb 9.9 L (12.0-15.0) g/dL Hct 34.8 L (37.2-46.3) % MCV 97.5 H (80.0-97.0) FL MCHC 28.4 L (32.0-37.0) g/dL RDW 18.1 H (11.5-14.5) % NRBC/100 WBC Diff 0.04 H (0.00-0.01) X 10*3/uL Chloride 94 L (98-107) mmol/L Carbon Dioxide 36 H 33.5 H (22-30) mmol/L Anion Gap 13.50 H (4.00-12.00) mmol/L BUN 56 H 59.2 H (7-17) mg/dL Creatinine 2.09 H 2.2 H (0.52-1.04) mg/dL Est GFR (CKD-EPI) 22 L (>=60) BUN/Creatinine Ratio 26.91 H (12.00-20.00) Ratio Glucose 164 H 155 H (74-99) mg/dL Phosphorus 4.8 H (2.5-4.5) mg/dL Total Bilirubin 1.4 H (0.2-1.3) mg/dL Assessment and Plan Assessment: Assessment and plan * Acute on chronic congestive heart failure diastolic dysfunction * Acute on chronic hypoxic respiratory failure multifactorial COPD, CHF exacerbation * Severe COPD with chronic hypoxia on 3 L of oxygen at baseline * Elevated troponin secondary to type II FL hypoxia * Chronic kidney disease stage IV * Paroxysmal atrial fibrillation on anticoagulation * 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 * In regards to hypoxia, CHF exacerbation continue patient on IV Lasix, ca rdiology consulted, appreciate input from pulmonary medicine, follow-up chest x-ray shows bibasilar infiltrates likely secondary to CHF, chest x-ray from 06/28 reviewed * In regards to COPD exacerbation continue patient on breathing treatments, continue IV Solu-Medrol, pro-calcitonin negative patient tested negative for influenza RSV and Covid * In regards to elevated troponin continue medical management, continue anticoagulation with Eliquis cardiology consulted * In regards to chronic kidney disease follow-up on renal profile while on diuretics, baseline creatinine around 1.59-1.7, monitor renal function while on diuretic, creatinine 2.2 * In regards to paroxysmal atrial fibrillation continue patient on anticoagulation with Eliquis, continue patient on metoprolol, continue telemetry monitoring * CODE STATUS is full code Time with Patient: Greater than 30
--- NOTE | 2023-06-28 15:17 | CDI ---
Documentation Clarification Form Date: 06/28/2023 03:05:00 PM From: Noemy Miramontes RN CCDS Phone: [phone] Admit Date: 06/26/2023 12:29:00 AM Patient Name: Taylor Willingham Visit Number: [id number] Discharge Date: ATTENTION: The Clinical Documentation Specialists (CDI) and [facility] Coding Staff appreciate your assistance in clarifying documentation. Please respond to the clarification below the line at the bottom and electronically sign. The CDI & [facility] Coding staff will review the response and follow-up if needed. Please note: Queries are made part of the Legal Health Record. If you have any questions, please contact the author of this message via ITS. Dr. Baldomero Cruz Conflicting documentation has been found in the medical record. As attending physician, please provide clarification. Acute on chronic heart failure with preserved ejection fraction, 50%, now with reduced NICOLE 35-40%, 06/28. Cardiology note. Acute on chronic congestive heart failure diastolic dysfunction, 06/28, Medicine note. History/Risk Factors: 78-year-old female presented to the Clinical Indicators: 06/26, ECHO: Impaired LV function. The EF is 35-40% Moderate mitral regurgitation. Mild to moderate aortic regurgitation, Sever tricuspid regurgitation. Severe pulmonary hypertension. Treatment: 06/26 Lasix 40mg IV x 1; 06/26 Lasix 20mg IV x 1; 06/26 Lasix 40mg IV Q12HR; 06/26 Toprol XL 75mg PO HS; Please clarify which diagnosis is most appropriate: [ ] Acute on Chronic Diastolic Heart Failure [y ] Acute on Chronic Systolic Heart Failure [ ] Other (please specify) [ ] Unable to determine (Template Last Revised: September 2020) MTDD
--- NOTE | 2023-06-28 17:55 | P.PN ---
Subjective Progress Note Date: 06/28/23 I am seeing this patient in new consultation today 06/26/2023 in the emergency room as she has progressively become more short of breath over the last couple weeks. Patient is a 78-year-old white female with past medical history significant for oxygen dependent COPD, CHF, chronic kidney disease, atrial fibrillation, permanent pacemaker, breast cancer with previous lumpectomy and radiation , among other things. She follows with a Dr. Ocampo, in [place], and has moved to the area within the last year. Patient states that she's had progressively worsening shortness of breath over the last couple weeks. She is normally oxygen dependent on 3 L/m nasal cannula. Her shortness of breath is mostly exertional. It's accompanied with chest tightness. She's had a dry nonproductive cough. Denies any fevers. Denies sick contacts. She also states that over weekend, she went to [place] with her family, and did not want to take her Lasix. She held her Lasix on her own from to Monday. Her breathing did get worse. She also admits increased lower extremity swelling. Patient is currently sitting up in bed, on 3 L/m nasal cannula, in no acute distress. Chest x-ray on arrival showed cardiomegaly with bilateral pleural effusions right greater than left and likely bibasilar compressive atelectasis, underlying infectious process could not be ruled out. Most recent echocardiogram from October of this year shows borderline LV systolic function with an EF of 50%. Severe pulmonary hypertension with a RVSP of 67 mmHg, severe right ventricular dilation and moderate tricuspid regurgitation. CBC on arrival showed a WBC count of 6.5, hemoglobin 10.6, hematocrit 35.4, platelets 190. BMP on arrival shows sodium 145, potassium 4.4, chloride 98, serum bicarb 39, BUN 40, creatinine 1.77, glucose 124. Troponins were elevated but flat. NT proBNP was significantly elevated 19,700. ECG on arrival showed a ventricular paced rhythm. Hemodynamically stable. today's evaluation of 06/27/2023, the patient is still having difficulty breathing. She remains on oxygen 5 L/m nasal cannula. Repeat chest x-ray was doneand it showed cardiomegaly and stable perihilar and bibasilar interstitial markings along with small bilateral pleural effusion consistent with CHF. Echocardiogram was done yesterday and the patient was found to have a left insular ejection fraction of 35-40% with moderate MR, [id number] aortic regurgitation, severe tricuspid regurgitation and severe pulmonary hypertension. Labs from today are still pending. Creatinine was elevated at 1.77. Her pr oBNP level was 19,700 and the patient also had troponin levels of 0.06 and 0.05 and 0.06 respectively. The viral screen was negative including Covid 19. She is on Symbicort. She is on DuoNeb updrafts. She is on IV Solu-Medrol 60 mg every 6 hours. She is on Lasix 40 mg every 12 hours. She is also on anticoagulation with Eliquis. The fluid balance has not been accurately measured. She seems to be in a negative fluid balance for now. On 06/28/2023, the patient is being seen for a follow-up. Still having increased shortness of breath and he she continues to be on oxygen 5 L/m nasal cannula. She is bronchospastic and wheezy. She remains on bronchodilators. She remains on steroids. She is also on diuretics and the patient is on Lasix 40 mg IV every 12 hours. No major improvement since yesterday. She has COPD and biventricular heart failure. Labs show a BUN of 59 with a creatinine of 2.2. Sodium level is at 145, bili cigars at 9 with a hemoglobin of 9.9. The fluid balance has been negative. Echo measurements of the input output has not been established. She remains on anticoagulation with Eliquis 5 mg by mouth twice a day. Rest of the home medications have been resumed. Objective - Vital Signs Vital signs: Vital Signs Temp 97.8 F 06/28/23 13:34 Pulse 70 06/28/23 13:34 Resp 22 06/28/23 13:34 BP 118/70 06/28/23 13:34 Pulse Ox 89 L 06/28/23 13:34 FiO2 Intake & Output 06/27/23 06/28/23 06/28/23 18:59 06:59 18:59 Weight 85.1 kg Other: # Voids 3 # Bowel Movements 1 - Exam GENERAL EXAM: Alert, 70-year-old white female , comfortable in no apparent distress. HEAD: Normocephalic and atraumatic EYES: Normal reaction of pupils, equal size. NOSE: Clear with pink turbinates. THROAT: No erythema or exudates. NECK: No masses, no JVD. CHEST: No chest wall deformity. LUNGS: Equal air entry with expiratory wheezes heard throughout. No crackles or focal dullness. On 5 L/m nasal cannula. No conversational dyspnea or accessory muscle use.. CVS: S1 and S2 normal with no audible murmur, regular rhythm. No extra heart sounds ABDOMEN: No hepatosplenomegaly, active bowel sounds, no guarding or rigidity. SPINE: No scoliosis or deformity SKIN: No rashes CENTRAL NERVOUS SYSTEM: No focal deficits, tone is normal in all 4 extremities. EXTREMITIES: There is 2+ bilateral lower extremity pitting edema. No clubbing, or cyanosis. Peripheral pulses are intact. - Labs CBC & Chem 7: 06/28/23 05:37 06/28/23 05:37 Labs: Abnormal Lab Results - Last 24 Hours (Table) 06/28/23 06/28/23 Range/Units 05:37 05:37 RBC 3.57 L (4.10-5.20) X 10*6/uL Hgb 9.9 L (12.0-15.0) g/dL Hct 34.8 L (37.2-46.3) % MCV 97.5 H (80.0-97.0) FL MCHC 28.4 L (32.0-37.0) g/dL RDW 18.1 H (11.5-14.5) % NRBC/100 WBC Diff 0.04 H (0.00-0.01) X 10*3/uL Carbon Dioxide 33.5 H (21.6-31.8) mmol/L Anion Gap 13.50 H (4.00-12.00) mmol/L BUN 59.2 H (9.0-27.0) mg/dL Creatinine 2.2 H (0.6-1.5) mg/dL Est GFR (CKD-EPI) 22 L (>=60) BUN/Creatinine Ratio 26.91 H (12.00-20.00) Ratio Glucose 155 H (70-110) mg/dL Assessment and Plan Assessment: Acute on chronic hypoxemic respiratory failure, secondary to a combination of exacerbation of systolic congestive heart failure/biventricular heart failure as the patient has LV dysfunction with an ejection fraction of 35% addition to valvular insufficiency involving the mitral and aortic valve and severe tricuspid regurgitation with severe pulmonary hypertension. The RV is also severely dilated. Patient also has a component of acute COPD exacerbation. Chest x-ray on arrival showed cardiomegaly with bilateral pleural effusions right greater than left with likely compressive atelectasis, however, underlying infectious process could not be ruled out .patient is currently on 5 L of O2 nasal cannula. Clinically not much change compared to yesterday. Severe oxygen dependent COPD, and the patient has chronic hypoxic respiratory failure normally on 3 L Chronic hypoxemic respiratory failure, normally maintained on 3 L/m nasal cannula secondary to above Severe pulmonary hypertension Chronic kidney disease stage IV Anemia of chronic disease Paroxysmal atrial fibrillation, anticoagulated on Eliquis Chronically elevated troponins History of permanent pacemaker implantation, currently ventricularly paced Remote history of breast cancer, with previous lumpectomy and radiation Nonocclusive coronary artery disease Previous history of atrial fibrillation Plan: Keep oxygen at 5 L Continue same treatment reviewed the echocardiogram and the patient has biventricular failure Continue diuretics, currently on Lasix 40 mg every 12 hours IV Continue Solu-Medrol Continue bronchodilators Continue anticoagulation with Eliquis Monitor renal function Titrate FiO2 to maintain a saturation above 90% We'll continue to follow.
[2023-06-28] MEDS: METOPROLOL SUCCINATE (ER) 25 MG TAB.ER.24H PO SCH (20:43)
[2023-06-28] MEDS: LORATADINE 10 MG TAB PO SCH (20:43)
[2023-06-28] MEDS: MONTELUKAST 10 MG TAB PO SCH (20:43)
[2023-06-29] MEDS: methylPREDNISolone SOD SUCCI 125 MG/2 ML VIAL IV SCH ×4 (00:21→16:57)
[2023-06-29] MEDS: IPRATROPIUM-ALBUTEROL 3 ML NEB INHALATION PRN ×2 (01:26→21:45)
[2023-06-29] MEDS: PANTOPRAZOLE 40 MG TABLET PO SCH ×2 (06:17→16:57)
[2023-06-29] MEDS: SYMBICORT 160-4.5 MCG INHALER INHALATION SCH ×2 (08:43→21:45)
[2023-06-29] MEDS: ALBUTEROL NEBULIZED 2.5 MG/3 ML INHALATION SCH ×4 (08:43→21:45)
[2023-06-29] MEDS: FERROUS SULFATE 325 MG TAB PO SCH (09:03)
[2023-06-29] MEDS: COLCHICINE 0.6 MG EACH PO SCH (09:03)
[2023-06-29] MEDS: MAGNESIUM OXIDE 400 MG TAB PO SCH (09:03)
[2023-06-29] MEDS: POTASSIUM CHLORIDE ER 20 MEQ TAB.ER PO SCH (09:03)
[2023-06-29] MEDS: CHOLECALCIFEROL 25 MCG (1000 IU) TABLET PO SCH (09:03)
[2023-06-29] MEDS: APIXABAN 5 MG TAB PO SCH ×2 (09:04→20:06)
[2023-06-29] MEDS: FUROSEMIDE 10 MG/ML 4 ML VIAL IV SCH (09:04)
[2023-06-29] MEDS: allopurinoL 300 MG TAB PO SCH (09:04)
[2023-06-29] MEDS: ACETAMINOPHEN TAB 325 MG TAB PO PRN ×2 (10:25→20:06)
[2023-06-29 11:07] LABS: HCT 37.3 % (37.2-46.3); HGB 10.5 g/dL (12.0-15.0); MCH 27.6 pg (27.0-32.0); MCHC 28.2 g/dL (32.0-37.0); MCV 98.2 FL (80.0-97.0); NRBC Per 100 WBC 0.03 X 10*3/uL (0.00-0.01); Platelet Count 201 X 10*3/uL (140-440); RDW 18.2 % (11.5-14.5); WBC 8.71 X 10*3/uL (4.50-10.00)
--- NOTE | 2023-06-29 11:27 | P.PN ---
Subjective HISTORY OF PRESENT ILLNESS: This is a 78-year-old female patient of Dr. Benitez with a past medical history significant of persistent atrial fibrillation on anticoagulation with eliquis, COPD, nonischemic cardiomyopathy, permanent pacemaker implantation, nonobstructive coronary artery disease. We have been asked to see the patient in consultation for congestive heart failure. Patient is seen today in the emergency center. Patient states that she came in the hospital because she could not breathe right. She states that she initially started with diarrhea for 3 days that has resolved.. She states she has some chest pain is worse with deep breathing. She was also had quite a bit of increased lower extremity edema . She has not been taking her Lasix for the past 4 days. She denies any wheezing, no nausea or vomiting. Patient denies smoking. EKG reveals paced rhythm with underlying atrial fibrillation Chest xray heart is enlarged. Bilateral pleural effusions right greater than left, basilar airspace opacities bilaterally WBC 6.5, hemoglobin 10.6, platelet count 190. INR 1.2. Sodium 145, potassium 4.4, CO2 39, BUN 40 creatinine 1.77. Troponin 0.063, 0.059 and 0.06. Pro- calcitonin 0.07. Influenza A, influenza B, RSV, Covid 19 not detected. Current home cardiac medications: Eliquis 5 mg twice daily, Lasix 40 mg twice daily, Toprol-XL 75 mg at bedtime, potassium chloride 20 mg once daily. Most recent echocardiogram obtained in October 2022 revealed ejection fraction 50%, severe pulmonary hypertension, moderate tricuspid regurgitation, and mild aortic stenosis 06/27 Patient is seen again today in the emergency center waiting for a bed on the cardiac stepdown unit. Patient states that her breathing is better today. No dizziness. No palpitations. She continues to have some wheezing and minimal lower extremity edema. She has been maintained on IV Lasix 40 mg twice daily and started on Monday. No accurate I&O and daily weights. Heart rate has been in the 70s, blood pressure 116/86, pulse ox 92% on 5 L nasal cannula. Repeat blood work reveals WBC 10, hemoglobin 10.3. Sodium 142, potassium 4.6, BUN 56 and creatinine 2.09. ProBNP is 28,600. Echocardiogram is pending. 06/28/2023 Patient examined this morning at the bedside. Patient denies chest pain or pressure. She reports mild shortness of breath. She remains on IV Lasix 40 mg every 12 hours. Creatinine today 2.2. Up from 2.09 yesterday. Echocardiogram completed revealing ejection fraction 35-40%, moderate MR, severe TR, and severe pulmonary hypertension 06/29/2023 Patient examined this morning at the bedside. Patient appears to be improving compared to yesterday. She continues to have wheezing although improved. She remains on IV Lasix and IV steroids. She denies any chest pain or pressure. Vital signs are stable. PHYSICAL EXAM: VITAL SIGNS: Reviewed. GENERAL: Well-developed in no acute distress. NECK: Supple. No JVD or thyromegaly LUNGS: Respirations even and unlabored. Lungs diminished with expiratory wheezing noted HEART: Regular rate and rhythm. S1 and S2 heard. EXTREMITIES: Normal range of motion. No clubbing or cyanosis. Peripheral pulses intact. Trace bilateral lower extremity edema ASSESSMENT: Acute on chronic heart failure with preserved ejection fraction, 50%, now with reduced EF 35-40% Severe pulmonary hypertension Elevated troponins secondary to type II MA Permanent atrial fibrillation History of pacemaker implantation History of COPD with home oxygen use Nonobstructive coronary artery disease, per patient, cath report not available for review Acute on chronic kidney disease PLAN: Discontinue IV Lasix. Resume oral Lasix 40 mg twice a day Farxiga discontinued secondary to kidney function Patient would benefit from CORDELL/ARB and Aldactone when kidney function improves Continue additional cardiac medications Patient is stable from a cardiac standpoint with no further inpatient recommendations We will sign off. Please reconsult if needed. Nurse practitioner note has been reviewed by physician. Signing provider agrees with the documented findings, assessment, and plan of care. Objective - Vital Signs Vital signs: Vital Signs Temp 98.4 F 06/29/23 07:28 Pulse 82 06/29/23 08:55 Resp 14 06/29/23 07:28 BP 122/78 06/29/23 07:28 Pulse Ox 90 L 06/29/23 08:44 FiO2 Intake & Output 06/28/23 06/29/23 06/29/23 18:59 06:59 18:59 Output Total 3 Balance -3 Weight 85.4 kg Output: Urine 3 Other: # Voids 2 # Bowel Movements 1 - Labs CBC & Chem 7: 06/29/23 06:22 06/28/23 05:37 Labs: Abnormal Lab Results - Last 24 Hours (Table) 06/29/23 Range/Units 06:22 RBC 3.80 L (4.10-5.20) X 10*6/uL Hgb 10.5 L (12.0-15.0) g/dL MCV 98.2 H (80.0-97.0) FL MCHC 28.2 L (32.0-37.0) g/dL RDW 18.2 H (11.5-14.5) % NRBC/100 WBC Diff 0.03 H (0.00-0.01) X 10*3/uL
[2023-06-29 14:05] LABS: BUN/Creat Ratio 28.16 Ratio (12.00-20.00); Blood Urea Nitrogen 70.4 mg/dL (9.0-27.0); Calcium 9.6 mg/dL (8.7-10.3); Carbon Dioxide 26.6 mmol/L (21.6-31.8); Chloride 98 mmol/L (96-109); Glucose 154 mg/dL (70-110); Potassium 5.9 mmol/L (3.5-5.5); Sodium 142 mmol/L (135-145)
--- NOTE | 2023-06-29 14:18 | P.PN ---
Subjective Progress Note Date: 06/29/23 * 78-year-old patient with past medical history significant for congestive heart failure, chronic kidney disease, history of a defibrillation status post pacemaker in place, previous history of breast cancer status post lumpectomy and radiation, COPD on home oxygen, presented to the emergency department with complaints of progressive shortness of breath. At baseline patient weighs 3 L of oxygen, however patient has been having more exertional shortness of breath as well as chest pain. This was associated with nonproductive cough, patient denies associated fever, chills, nausea, vomiting with 6 contact. states her symptoms started 1 week ago around when she went up with the family. Patient states she had her Lasix during that time and started to feel short of breath since then. She has noticed increased swelling and lower extremity as well * Workup initiated in ER included a chest x-ray which showed bilateral pleural effusions as well as cardiomegaly. * Workup in ER included CBC which were WBC count of 6.5 hemoglobin 10.6 platelet 190, serum chemistry shows sodium 145 potassium 4.5 chloride 98 , serum bicarbonate 39 BU and 40 creatinine 1.77. * Patient had elevated troponin which remained flat in ED, N-terminal proBNP was noted to be 19,700, * EKG obtained in ER showed paced rhythm * Patient to be admitted to medical floor with consultation from pulmonary med icine and cardiology * 06/27/2023: Patient seen and evaluated bedside patient seen in ER room 1, [facility] for bed, continue patient on diuresis the patient input from pulmonary medicine, blood work reviewed, serum chemistry reviewed creatinine 2.09. N- terminal proBNP 82202 * 06/28/2023: Patient seen and evaluated bedside, patient in room 485, patient does complain of shortness of breath, follow-up chest x-ray obtained shows slight improvement in pulmonary vascular congestion was on 6 L of oxygen wea jj down to 4 L. Appreciate input from cardiology, WBC within normal limits, serum chemistry and renal function reviewed, creatinine 2.2 N-terminal proBNP 74375. Pro-calcitonin was negative. Once kidney function improved patient will benefit from ELLEN * 06/29/2023: Patient seen and evaluated bedside, patient does complain of shortness of breath however she states her breathing has improved, continue patient on Lasix, blood work reviewed, potassium 5.9, Patient patient to be given insulin, dextrose, calcium gluconate and sodium bicarbonate. Continue patient on Lasix, oral potassium supplementation discontinued REVIEW OF SYSTEMS: Shortness of breath, lower extremity edema, cough, weakness IMPROVED CONSTITUTIONAL: No fever, no malaise, no fatigue. HEENT: No recent visual problems or hearing problems. Denied any sore throat. CARDIOVASCULAR: Shortness of breath, lower extremity edema, cough, weakness PULMONARY:Shortness of breath, lower extremity edema, cough, weakness GASTROINTESTINAL: No diarrhea, no nausea, no vomiting, no abdominal pain. NEUROLOGICAL: No headaches, no weakness, no numbness. HEMATOLOGICAL: Denies any bleeding or petechiae. GENITOURINARY: Denies any burning micturition, frequency, or urgency. MUSCULOSKELETAL/RHEUMATOLOGICAL: Denies any joint pain, swelling, or any muscle pain. ENDOCRINE: Denies any polyuria or polydipsia. PHYSICAL EXAMINATION: GENERAL: The patient is alert and oriented x3, ill appearance, nasal cannula in place, HEENT: Pupils are round and equally reacting to light. EOMI. CARDIOVASCULAR: S1 and S2 present. No murmurs, rubs, or gallops. PULMONARY: Decreased breath sounds were bilaterally, ABDOMEN: Soft, nontender, nondistended, normoactive bowel sounds. No palpable organomegaly. MUSCULOSKELETAL: Bilateral lower extremity edema EXTREMITIES: No cyanosis, clubbing, or pedal edema. NEUROLOGICAL: Gross neurological examination did not reveal any focal deficits. Objective - Vital Signs Vital signs: Vital Signs Temp 98.4 F 06/29/23 07:28 Pulse 83 06/29/23 11:45 Resp 14 06/29/23 07:28 BP 122/78 06/29/23 07:28 Pulse Ox 90 L 06/29/23 08:44 FiO2 Intake & Output 06/28/23 06/29/23 06/29/23 18:59 06:59 18:59 Output Total 3 Balance -3 Weight 85.4 kg Output: Urine 3 Other: # Voids 2 # Bowel Movements 1 - Labs CBC & Chem 7: 06/29/23 06:22 06/29/23 06:22 Labs: Abnormal Lab Results - Last 24 Hours (Table) 06/29/23 06/29/23 Range/Units 06:22 06:22 RBC 3.80 L (4.10-5.20) X 10*6/uL Hgb 10.5 L (12.0-15.0) g/dL MCV 98.2 H (80.0-97.0) FL MCHC 28.2 L (32.0-37.0) g/dL RDW 18.2 H (11.5-14.5) % NRBC/100 WBC Diff 0.03 H (0.00-0.01) X 10*3/uL Potassium 5.9 H (3.5-5.5) mmol/L Anion Gap 17.40 H (4.00-12.00) mmol/L BUN 70.4 H (9.0-27.0) mg/dL Creatinine 2.5 H (0.6-1.5) mg/dL Est GFR (CKD-EPI) 19 L (>=60) BUN/Creatinine Ratio 28.16 H (12.00-20.00) Ratio Glucose 154 H (70-110) mg/dL Assessment and Plan Assessment: Assessment and plan * Acute on chronic congestive heart failure diastolic dysfunction * Acute on chronic hypoxic respiratory failure multifactorial COPD, CHF exacerbation * Severe COPD with chronic hypoxia on 3 L of oxygen at baseline * Elevated troponin secondary to type II HI hypoxia * Transient hyperkalemia * Acute kidney injury Chronic kidney disease stage IV * Paroxysmal atrial fibrillation on anticoagulation * 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 * In regards to hypoxia, CHF exacerbation continue patient on IV Lasix, cardiology consulted, appreciate input from pulmonary medicine, follow-up chest x-ray shows bibasilar infiltrates likely secondary to CHF, chest x-ray from 06/28 reviewed * In regards to COPD exacerbation continue patient on breathing treatments, continue IV Solu-Medrol, pro-calcitonin negative patient tested negative for influenza RSV and Covid * In regards to elevated troponin continue medical management, continue anticoagulation with Eliquis cardiology consulted * In regards to acute renal failure on chronic kidney disease follow-up on renal profile while on diuretics, baseline creatinine around 1.59-1.7, monitor renal function while on diuretic, creatinine trending up we will consult nephrology * In regards to paroxysmal atrial fibrillation continue patient on anticoagulation with Eliquis, continue patient on metoprolol, continue telemetry monitoring * CODE STATUS is full code Time with Patient: Greater than 30
[2023-06-29] MEDS ORDERED: ALBUTEROL NEB (CONC) 2.5 MG/0.5 ML INHALATION ONE (14:30)
[2023-06-29] MEDS ORDERED: INSULIN REGULAR 100 UNIT/ML VIAL (IV) IV ONE (14:30)
[2023-06-29] MEDS ORDERED: CALCIUM GLUCONATE IN NACL 1 GM in SALINE 1 100ML.BAG IVPB ONE (14:30)
[2023-06-29] MEDS ORDERED: DEXTROSE 50% SYRINGE 50 ML IVP ONE (14:30)
[2023-06-29] MEDS ORDERED: SODIUM BICARB 8.4% 50 ML SYR (1 MEQ/ML) IV ONE (14:30)
--- NOTE | 2023-06-29 16:19 | P.PN ---
Subjective Progress Note Date: 06/29/23 I am seeing this patient in new consultation today 06/26/2023 in the emergency room as she has progressively become more short of breath over the last couple weeks. Patient is a 78-year-old white female with past medical history significant for oxygen dependent COPD, CHF, chronic kidney disease, atrial fibrillation, permanent pacemaker, breast cancer with previous lumpectomy and radiation , among other things. She follows with a Dr. Ocampo, in [place], and has moved to the area within the last year. Patient states that she's had progressively worsening shortness of breath over the last couple weeks. She is normally oxygen dependent on 3 L/m nasal cannula. Her shortness of breath is mostly exertional. It's accompanied with chest tightness. She's had a dry nonproductive cough. Denies any fevers. Denies sick contacts. She also states that over weekend, she went to [place] with her family, and did not want to take her Lasix. She held her Lasix on her own from to Monday. Her breathing did get worse. She also admits increased lower extremity swelling. Patient is currently sitting up in bed, on 3 L/m nasal cannula, in no acute distress. Chest x-ray on arrival showed cardiomegaly with bilateral pleural effusions right greater than left and likely bibasilar compressive atelectasis, underlying infectious process could not be ruled out. Most recent echocardiogram from October of this year shows borderline LV systolic function with an EF of 50%. Severe pulmonary hypertension with a RVSP of 67 mmHg, severe right ventricular dilation and moderate tricuspid regurgitation. CBC on arrival showed a WBC count of 6.5, hemoglobin 10.6, hematocrit 35.4, platelets 190. BMP on arrival shows sodium 145, potassium 4.4, chloride 98, serum bicarb 39, BUN 40, creatinine 1.77, glucose 124. Troponins were elevated but flat. NT proBNP was significantly elevated 19,700. ECG on arrival showed a ventricular paced rhythm. Hemodynamically stable. today's evaluation of 06/27/2023, the patient is still having difficulty breathing. She remains on oxygen 5 L/m nasal cannula. Repeat chest x-ray was doneand it showed cardiomegaly and stable perihilar and bibasilar interstitial markings along with small bilateral pleural effusion consistent with CHF. Echocardiogram was done yesterday and the patient was found to have a left insular ejection fraction of 35-40% with moderate MR, [id number] aortic regurgitation, severe tricuspid regurgitation and severe pulmonary hypertension. Labs from today are still pending. Creatinine was elevated at 1.77. Her pr oBNP level was 19,700 and the patient also had troponin levels of 0.06 and 0.05 and 0.06 respectively. The viral screen was negative including Covid 19. She is on Symbicort. She is on [facility]eb [facility]. She is on IV Solu-Medrol 60 mg every 6 hours. She is on Lasix 40 mg every 12 hours. She is also on anticoagulation with Eliquis. The fluid balance has not been accurately measured. She seems to be in a negative fluid balance for now. On 06/28/2023, the patient is being seen for a follow-up. Still having increased shortness of breath and he she continues to be on oxygen 5 L/m nasal cannula. She is bronchospastic and wheezy. She remains on bronchodilators. She remains on steroids. She is also on diuretics and the patient is on Lasix 40 mg IV every 12 hours. No major improvement since yesterday. She has COPD and biventricular heart failure. Labs show a BUN of 59 with a creatinine of 2.2. Sodium level is at 145, bili cigars at 9 with a hemoglobin of 9.9. The fluid balance has been negative. Echo measurements of the input output has not been established. She remains on anticoagulation with Eliquis 5 mg by mouth twice a day. Rest of the home medications have been resumed. On today's evaluation of , the patient is feeling better. She is short of breath. She remains on a combination of bronchodilators, steroids, and diuretics and the patient remains on Lasix 40 mg by mouth twice a day. She remains on IV Solu-Medrol 60 g every 6 hours. She is on 4 L of oxygen nasal cannula with a pulse ox of 90%. She is able to sit up on a chair. Her white cell count is at 8.7 with a hemoglobin of 10.5 and a platelet count of 1. There is a component of an acute kidney injury. BUN is at 70 with a creatinine of 2.5 and the patient was taken off the IV Lasix and switch to oral Lasix. Sodium is at 142 and a potassium level is at 5.9. No other significant events overnight. No altered mentation. No chest pain. Remains on anticoagulation with Eliquis 5 mg by mouth twice a day. Objective - Vital Signs Vital signs: Vital Signs Temp 98.4 F 06/29/23 07:28 Pulse 83 06/29/23 11:45 Resp 14 06/29/23 07:28 BP 122/78 06/29/23 07:28 Pulse Ox 90 L 06/29/23 08:44 FiO2 Intake & Output 06/28/23 06/29/23 06/29/23 18:59 06:59 18:59 Output Total 3 Balance -3 Weight 85.4 kg Output: Urine 3 Other: # Voids 2 # Bowel Movements 1 - Exam GENERAL EXAM: Alert, 70-year-old white female , comfortable in no apparent distress. HEAD: Normocephalic and atraumatic EYES: Normal reaction of pupils, equal size. NOSE: Clear with pink turbinates. THROAT: No erythema or exudates. NECK: No masses, no JVD. CHEST: No chest wall deformity. LUNGS: Equal air entry with expiratory wheezes heard throughout. No crackles or focal dullness. On 5 L/m nasal cannula. No conversational dyspnea or accessory muscle use.. CVS: S1 and S2 normal with no audible murmur, regular rhythm. No extra heart sounds ABDOMEN: No hepatosplenomegaly, active bowel sounds, no guarding or rigidity. SPINE: No scoliosis or deformity SKIN: No rashes CENTRAL NERVOUS SYSTEM: No focal deficits, tone is normal in all 4 extremities. EXTREMITIES: There is 2+ bilateral lower extremity pitting edema. No clubbing, or cyanosis. Peripheral pulses are intact. - Labs CBC & Chem 7: 06/29/23 06:22 06/29/23 06:22 Labs: Abnormal Lab Results - Last 24 Hours (Table) 06/29/23 Range/Units 06:22 RBC 3.80 L (4.10-5.20) X 10*6/uL Hgb 10.5 L (12.0-15.0) g/dL MCV 98.2 H (80.0-97.0) FL MCHC 28.2 L (32.0-37.0) g/dL RDW 18.2 H (11.5-14.5) % NRBC/100 WBC Diff 0.03 H (0.00-0.01) X 10*3/uL Assessment and Plan Assessment: Acute on chronic hypoxemic respiratory failure, secondary to a combination of exacerbation of systolic congestive heart failure/biventricular heart failure as the patient has LV dysfunction with an ejection fraction of 35% addition to valvular insufficiency involving the mitral and aortic valve and severe tricuspid regurgitation with severe pulmonary hypertension. The RV is also severely dilated. Patient also has a component of acute COPD exacerbation. Chest x-ray on arrival showed cardiomegaly with bilateral pleural effusions right greater than left with likely compressive atelectasis, however, underlying infectious process could not be ruled out .patient is currently on 4 L of O2 nasal cannula. Clinically improved compared to yesterday Severe oxygen dependent COPD, and the patient has chronic hypoxic respiratory failure normally on 3 L Chronic hypoxemic respiratory failure, normally maintained on 3 L/m nasal cannula secondary to above Severe pulmonary hypertension Chronic kidney disease stage IV Anemia of chronic disease Paroxysmal atrial fibrillation, anticoagulated on Eliquis Chronically elevated troponins History of permanent pacemaker implantation, currently ventricularly paced Remote history of breast cancer, with previous lumpectomy and radiation Nonocclusive coronary artery disease Previous history of atrial fibrillation Plan: Keep oxygen at 4 L of O2 nasal cannula and titrate slowly Switch this patient to oral Lasix and monitor renal function Continue same treatment reviewed the echocardiogram and the patient has biventricular failure Continue Solu-Medrol Continue bronchodilators Continue anticoagulation with Eliquis Monitor renal function Titrate FiO2 to maintain a saturation above 90% We'll continue to follow.
[2023-06-29] MEDS: FUROSEMIDE 40 MG TAB PO SCH (16:57)
[2023-06-29 17:11] LABS: Glucose,Whole Blood 278 mg/dL (70-110)
[2023-06-29] MEDS: LORATADINE 10 MG TAB PO SCH (20:06)
[2023-06-29] MEDS: MONTELUKAST 10 MG TAB PO SCH (20:06)
[2023-06-29] MEDS: METOPROLOL SUCCINATE (ER) 25 MG TAB.ER.24H PO SCH (20:07)
[2023-06-30] MEDS: methylPREDNISolone SOD SUCCI 125 MG/2 ML VIAL IV SCH ×3 (00:06→13:00)
[2023-06-30] MEDS: ACETAMINOPHEN TAB 325 MG TAB PO PRN (05:33)
[2023-06-30] MEDS: PANTOPRAZOLE 40 MG TABLET PO SCH ×2 (06:30→17:45)
[2023-06-30] MEDS: ALBUTEROL NEBULIZED 2.5 MG/3 ML INHALATION SCH ×4 (08:39→21:30)
[2023-06-30] MEDS: SYMBICORT 160-4.5 MCG INHALER INHALATION SCH ×2 (08:39→21:31)
[2023-06-30] MEDS: CHOLECALCIFEROL 25 MCG (1000 IU) TABLET PO SCH (09:18)
[2023-06-30] MEDS: allopurinoL 300 MG TAB PO SCH (09:18)
[2023-06-30] MEDS: FUROSEMIDE 40 MG TAB PO SCH ×2 (09:18→17:45)
[2023-06-30] MEDS: APIXABAN 5 MG TAB PO SCH ×2 (09:18→19:50)
[2023-06-30] MEDS: MAGNESIUM OXIDE 400 MG TAB PO SCH (09:18)
[2023-06-30] MEDS: FERROUS SULFATE 325 MG TAB PO SCH (09:19)
[2023-06-30 11:25] LABS: HCT 38.3 % (37.2-46.3); HGB 10.5 g/dL (12.0-15.0); MCH 27.6 pg (27.0-32.0); MCHC 27.4 g/dL (32.0-37.0); MCV 100.8 FL (80.0-97.0); Mean Platelet Volume 12.2 FL (9.5-12.2); NRBC Per 100 WBC 0.03 X 10*3/uL (0.00-0.01); Platelet Count 207 X 10*3/uL (140-440); RDW 18.1 % (11.5-14.5); WBC 7.13 X 10*3/uL (4.50-10.00)
--- NOTE | 2023-06-30 11:43 | P.NPCON ---
History of Present Illness - Reason for Consult acute renal failure - History of Present Illness Patient is a 78-year-old female with history of CHF, chronic kidney disease NKF stage IV with baseline creatinine 1.5-1.7 mg/dL. Etiology is nephrosclerosis. Patient is admitted to the hospital with complaints of shortness of breath. She also has underlying history of breast cancer status post lumpectomy and radiation therapy along with COPD and is maintained on home oxygen. Patient denied any fever or chills. No significant urinary symptoms. Chest x-ray shows bilateral pleural effusions and pulmonary vascular congestion. Patient has been diuresed. She states she is feeling better. Blood pressure has been on the lower side with systolic in the 90s on 06/26/2023. Lasix was switched to oral yesterday. Urine output not accurately charted. Patient has been voiding. Review of Systems As per HPI Past Medical History Past Medical History: Atrial Fibrillation, Asthma, Cancer, Heart Failure, COPD, GERD/Reflux, Skin Disorder Additional Past Medical History / Comment(s): COPD, asthma, breast cancer-right lumpectomy and radiation therapy 25 years ago, wears 3L NC at home, chronic atrial fibrillation, CHF (systolic ). Arthritis, dry patch on right leg, gout History of Any Multi-Drug Resistant Organisms: None Reported Past Surgical History: Section, Heart Catheterization, Hernia Repair, Pacemaker Additional Past Surgical History / Comment(s): left hand surgery for broken index and middle finger Past Anesthesia/Blood Transfusion Reactions: No Reported Reaction Type of Cardiac Device: Permanent Pacemaker Device Placement Date:: 07/2021 Smoking Status: Former smoker - Past Family History Mother Family Medical History: Diabetes Mellitus Medications and Allergies Home Medications Medication Instructions Recorded Confirmed Type Apixaban [Eliquis] 5 mg PO BID 11/12/22 06/25/23 History Cholecalciferol [Vitamin D3 (25 75 mcg PO DAILY 11/12/22 06/25/23 History Mcg = 1000 Iu)] Colchicine 0.6 mg PO TUTH 11/12/22 06/25/23 History Ferrous Sulfate [Iron (65 MG 325 mg PO DAILY 11/12/22 06/25/23 History Elemental)] Fexofenadine HCl [Jamee Allergy] 180 mg PO HS 11/12/22 06/25/23 History Ipratropium/Albuter 20-100Mcg 1 puff INHALATION RT-QID PRN 11/12/22 06/25/23 History [Combivent Respimat 20-100Mcg Inhaler] Magnesium Oxide [Mag-Ox] 400 mg PO DAILY 11/12/22 06/25/23 History Metoprolol Succinate [Metoprolol 75 mg PO HS 11/12/22 06/25/23 History Succinate ER] Montelukast [Singulair] 10 mg PO HS 11/12/22 06/25/23 History Pantoprazole [Protonix] 40 mg PO BID 11/12/22 06/25/23 History Potassium Chloride ER [K-Dur 20] 20 meq PO DAILY 11/12/22 06/25/23 History Power C Supplement 2 tab PO DAILY 11/12/22 06/25/23 History Vitamin B Complex 1 cap PO DAILY 11/12/22 06/25/23 History allopurinoL [Zyloprim] 150 mg PO DAILY 11/12/22 06/25/23 History Albuterol Inhaler [Ventolin Hfa 2 puff INHALATION RT-QID PRN #1 11/19/22 06/25/23 Rx Inhaler] each Furosemide [Lasix] 40 mg PO BID@0900,1600 #60 tab 11/19/22 06/25/23 Rx Ipratropium-Albuterol Nebulize 3 ml INHALATION RT-Q3H 06/25/23 06/25/23 History [Duoneb 0.5 mg-3 mg/3 ml Soln] Allergies Allergy/AdvReac Type Severity Reaction Status Date / Time aspirin Allergy Anaphylaxis Verified 06/25/23 22:13 ibuprofen Allergy Anaphylaxis Verified 06/25/23 22:13 Physical Exam Vitals: Vital Signs Temp Pulse Pulse Pulse Resp BP Pulse Ox 06/30/23 09:23 93 L 06/30/23 08:49 88 06/30/23 08:40 86 06/30/23 08:00 97.6 F 70 20 119/82 90 L 06/30/23 02:00 98.2 F 70 18 112/75 92 L 06/29/23 22:03 82 06/29/23 21:46 82 06/29/23 20:26 97.7 F 70 18 127/75 90 L 06/29/23 20:00 70 06/29/23 16:05 82 06/29/23 14:41 97.4 F L 70 19 122/78 90 L 06/29/23 11:45 83 Intake and Output 06/29/23 06/30/23 06/30/23 22:59 06:59 14:59 Other: Voiding Method Bedside Commode # Voids 1 3 1 # Bowel Movements 1 1 Weight 85 kg patient is awake, comfortable, no acute distress. 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 Acute kidney injury, cardiorenal, nonoliguric. Diuretics have been changed to oral. Blood pressure is not significantly low. No nephrotoxic agents noted. Check urine analysis and check ultrasound of the kidneys. 2. Chronic kidney disease stage IV with baseline creatinine 1.5-1.7 mg/dL. Etiology is nephrosclerosis. 3. Acute hypoxic respiratory failure secondary to CHF exacerbation 4. Acute on chronic systolic CHF with ejection fraction 35-40% with severe left atrial allocation and severe right ventricular dilated dictation and severe pulmonary hypertension. 5. Chronic hypoxic trace per chief failure maintained on home oxygen. Etiology is COPD and CHF 6. Paroxysmal atrial fibrillation maintained on eliquis. Plan: Continue current dose of oral Lasix Check bladder scan and rule out urine retention Check UA Check ultrasound of the kidneys. Repeat labs in a.m. Thank you for the consultation. We will continue to follow the patient with you during her hospitalization.
[2023-06-30 11:46] LABS: BUN/Creat Ratio 32.92 Ratio (12.00-20.00); C Reactive Protein <0.30 mg/dL (0.00-0.80); Calcium 9.6 mg/dL (8.7-10.3); Carbon Dioxide 34.5 mmol/L (21.6-31.8); Chloride 96 mmol/L (96-109); Glucose 207 mg/dL (70-110); Potassium 5.5 mmol/L (3.5-5.5); Sodium 142 mmol/L (135-145)
--- NOTE | 2023-06-30 12:16 | P.PN ---
Subjective Progress Note Date: 06/30/23 * 78-year-old patient with past medical history significant for congestive heart failure, chronic kidney disease, history of a defibrillation status post pacemaker in place, previous history of breast cancer status post lumpectomy and radiation, COPD on home oxygen, presented to the emergency department with complaints of progressive shortness of breath. At baseline patient weighs 3 L of oxygen, however patient has been having more exertional shortness of breath as well as chest pain. This was associated with nonproductive cough, patient denies associated fever, chills, nausea, vomiting with 6 contact. states her symptoms started 1 week ago around when she went up with the family. Patient states she had her Lasix during that time and started to feel short of breath since then. She has noticed increased swelling and lower extremity as well * Workup initiated in ER included a chest x-ray which showed bilateral pleural effusions as well as cardiomegaly. * Workup in ER included CBC which were WBC count of 6.5 hemoglobin 10.6 platelet 190, serum chemistry shows sodium 145 potassium 4.5 chloride 98 , serum bicarbonate 39 BU and 40 creatinine 1.77. * Patient had elevated troponin which remained flat in ED, N-terminal proBNP was noted to be 19,700, * EKG obtained in ER showed paced rhythm * Patient to be admitted to medical floor with consultation from pulmonary med icine and cardiology * 06/27/2023: Patient seen and evaluated bedside patient seen in ER room 1, [facility] for bed, continue patient on diuresis the patient input from pulmonary medicine, blood work reviewed, serum chemistry reviewed creatinine 2.09. N- terminal proBNP 72789 * 06/28/2023: Patient seen and evaluated bedside, patient in room 485, patient does complain of shortness of breath, follow-up chest x-ray obtained shows slight improvement in pulmonary vascular congestion was on 6 L of oxygen wea jj down to 4 L. Appreciate input from cardiology, WBC within normal limits, serum chemistry and renal function reviewed, creatinine 2.2 N-terminal proBNP 00397. Pro-calcitonin was negative. Once kidney function improved patient will benefit from ELLEN * 06/29/2023: Patient seen and evaluated bedside, patient does complain of shortness of breath however she states her breathing has improved, continue patient on Lasix, blood work reviewed, potassium 5.9, Patient patient to be given insulin, dextrose, calcium gluconate and sodium bicarbonate. Continue patient on Lasix, oral potassium supplementation discontinued * 06/30/2023: Patient seen and evaluated bedside, patient does complain of shortness of breath, blood work reviewed, potassium 5.5, lokelma given, follow-up on potassium levels. Renal function creatinine 2.4, nephrology following. Continue patient on Lasix transitioned from IV to oral. IV Solu- Medrol weaned down to daily as well REVIEW OF SYSTEMS: Shortness of breath, lower extremity edema, cough, weakness IMPROVED CONSTITUTIONAL: No fever, no malaise, no fatigue. HEENT: No recent visual problems or hearing problems. Denied any sore throat. CARDIOVASCULAR: Shortness of breath, lower extremity edema, cough, weakness PULMONARY:Shortness of breath, lower extremity edema, cough, weakness GASTROINTESTINAL: No diarrhea, no nausea, no vomiting, no abdominal pain. NEUROLOGICAL: No headaches, no weakness, no numbness. HEMATOLOGICAL: Denies any bleeding or petechiae. GENITOURINARY: Denies any burning micturition, frequency, or urgency. MUSCULOSKELETAL/RHEUMATOLOGICAL: Denies any joint pain, swelling, or any muscle pain. ENDOCRINE: Denies any polyuria or polydipsia. PHYSICAL EXAMINATION: GENERAL: The patient is alert and oriented x3, ill appearance, nasal cannula in place, HEENT: Pupils are round and equally reacting to light. EOMI. CARDIOVASCULAR: S1 and S2 present. No murmurs, rubs, or gallops. PULMONARY: Decreased breath sounds were bilaterally, ABDOMEN: Soft, nontender, nondistended, normoactive bowel sounds. No palpable organomegaly. MUSCULOSKELETAL: Bilateral lower extremity edema EXTREMITIES: No cyanosis, clubbing, or pedal edema. NEUROLOGICAL: Gross neurological examination did not reveal any focal deficits. Objective - Vital Signs Vital signs: Vital Signs Temp 97.6 F 06/30/23 08:00 Pulse 88 06/30/23 08:49 Resp 20 06/30/23 08:00 BP 119/82 06/30/23 08:00 Pulse Ox 93 L 06/30/23 09:23 FiO2 Intake & Output 06/29/23 06/30/23 06/30/23 18:59 06:59 18:59 Weight 85 kg Other: Voiding Method Bedside Commode # Voids 1 3 1 # Bowel Movements 1 1 - Labs CBC & Chem 7: 06/30/23 05:23 12 05:23 Labs: Abnormal Lab Results - Last 24 Hours (Table) 06/29/23 06/29/23 06/29/23 Range/Units 06:22 17:08 18:16 RBC (4.10-5.20) X 10*6/uL Hgb (12.0-15.0) g/dL MCV (80.0-97.0) FL MCHC (32.0-37.0) g/dL RDW (11.5-14.5) % NRBC/100 WBC Diff (0.00-0.01) X 10*3/uL Potassium 5.9 H 5.2 H (3.5-5.5) mmol/L Carbon Dioxide (21.6-31.8) mmol/L Anion Gap 17.40 H (4.00-12.00) mmol/L BUN 70.4 H (9.0-27.0) mg/dL Creatinine 2.5 H (0.6-1.5) mg/dL Est GFR (CKD-EPI) 19 L (>=60) BUN/Creatinine Ratio 28.16 H (12.00-20.00) Ratio Glucose 154 H (70-110) mg/dL POC Glucose (mg/dL) 278 H (70-110) mg/dL 06/30/23 06/30/23 Range/Units 05:23 05:23 RBC 3.80 L (4.10-5.20) X 10*6/uL Hgb 10.5 L (12.0-15.0) g/dL MCV 100.8 H (80.0-97.0) FL MCHC 27.4 L (32.0-37.0) g/dL RDW 18.1 H (11.5-14.5) % NRBC/100 WBC Diff 0.03 H (0.00-0.01) X 10*3/uL Potassium (3.5-5.5) mmol/L Carbon Dioxide 34.5 H (21.6-31.8) mmol/L Anion Gap (4.00-12.00) mmol/L BUN 79.0 H (9.0-27.0) mg/dL Creatinine 2.4 H (0.6-1.5) mg/dL Est GFR (CKD-EPI) 20 L (>=60) BUN/Creatinine Ratio 32.92 H (12.00-20.00) Ratio Glucose 207 H (70-110) mg/dL POC Glucose (mg/dL) (70-110) mg/dL Assessment and Plan Assessment: Assessment and plan * Acute on chronic congestive heart failure diastolic dysfunction * Acute on chronic hypoxic respiratory failure multifactorial COPD, CHF exacerbation * Severe COPD with chronic hypoxia on 3 L of oxygen at baseline * Elevated troponin secondary to type II MD hypoxia * Transient hyperkalemia * Acute kidney injury Chronic kidney disease stage IV * Paroxysmal atrial fibrillation on anticoagulation * 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 * In regards to hypoxia, CHF exacerbation continue patient on Lasix transiti oned from IV to oral, cardiology consulted, appreciate input from pulmonary medicine, follow-up chest x-ray shows bibasilar infiltrates likely secondary to CHF, chest x-ray from 06/28 reviewed * In regards to COPD exacerbation continue patient on breathing treatments, continue IV Solu-Medrol weaned down, pro-calcitonin negative patient tested negative for influenza RSV and Covid * In regards to elevated troponin continue medical management, continue anticoagulation with Eliquis cardiology consulted * In regards to acute renal failure on chronic kidney disease follow-up on renal profile while on diuretics, baseline creatinine around 1.59-1.7, monitor renal function while on diuretic, creatinine trending up, nephrology following * In regards to paroxysmal atrial fibrillation continue patient on a nticoagulation with Eliquis, continue patient on metoprolol, continue telemetry monitoring * In regards to transient hyperkalemia, patient was given insulin, dextrose, sodium bicarbonate 06/29, potassium 5.5, Lokelma given follow-up potassium ordered * CODE STATUS is full code
--- NOTE | 2023-06-30 12:48 | US ---
EXAMINATION TYPE: US kidneys/renal and bladder DATE OF EXAM: 06/30/2023 COMPARISON: 11/14/2022 CLINICAL INDICATION: Female, 78 years old with history of yovanny; YOVANNY EXAM MEASUREMENTS: Right Kidney: 8.6 x 4.1 x 4.6 cm Left Kidney: 9.5 x 4.4 x 4.2 cm difficult exam due to limited patient mobility, patient body habitus, and overlying bowel gas. Right Kidney: No obvious hydronephrosis or masses seen Left Kidney: There is an anechoic area at the lateral, inferior pole of the left kidney measuring 1.3 x 1.4 x 1.5cm. Bladder: Bladder diverticula noted in the posterior left bladder wall. Bilateral Jets seen: Left jet only seen today. The kidneys are mildly atrophic and there is mild cortical thinning consistent with chronic medical r enal disease. There is no solid renal mass, hydronephrosis or renal calculus. There is a bladder diverticulum of the posterior left bladder. IMPRESSION: 1. Persistent mild medical renal disease with cortical thinning and decreased renal size. 2. No solid renal mass hydronephrosis or calculus.
[2023-06-30] MEDS ORDERED: SODIUM ZIRCONIUM CYCLOSILICATE 10 GM PACKET PO ONE (13:00)
[2023-06-30 14:39] LABS: ABG Base Excess 12.1 mmol/L; ABG HCO3 39 mmol/L (21-25); ABG Oxygen Saturation 88.9 % (94-97); ABG PH 7.26 (7.35-7.45); ABG PO2 61 mmHg (83-108); ABG TCO2 42 mmol/L (19-24); Allen Test Performed? Yes
[2023-06-30 14:41] LABS: ABG PCO2 87 mmHg (35-45)
--- NOTE | 2023-06-30 18:01 | P.PN ---
Subjective Progress Note Date: 06/30/23 I am seeing this patient in new consultation today 06/26/2023 in the emergency room as she has progressively become more short of breath over the last couple weeks. Patient is a 78-year-old white female with past medical history significant for oxygen dependent COPD, CHF, chronic kidney disease, atrial fibrillation, permanent pacemaker, breast cancer with previous lumpectomy and radiation , among other things. She follows with a Dr. Ocampo, in [place], and has moved to the area within the last year. Patient states that she's had progressively worsening shortness of breath over the last couple weeks. She is normally oxygen dependent on 3 L/m nasal cannula. Her shortness of breath is mostly exertional. It's accompanied with chest tightness. She's had a dry nonproductive cough. Denies any fevers. Denies sick contacts. She also states that over weekend, she went to [place] with her family, and did not want to take her Lasix. She held her Lasix on her own from to Monday. Her breathing did get worse. She also admits increased lower extremity swelling. Patient is currently sitting up in bed, on 3 L/m nasal cannula, in no acute distress. Chest x-ray on arrival showed cardiomegaly with bilateral pleural effusions right greater than left and likely bibasilar compressive atelectasis, underlying infectious process could not be ruled out. Most recent echocardiogram from October of this year shows borderline LV systolic function with an EF of 50%. Severe pulmonary hypertension with a RVSP of 67 mmHg, severe right ventricular dilation and moderate tricuspid regurgitation. CBC on arrival showed a WBC count of 6.5, hemoglobin 10.6, hematocrit 35.4, platelets 190. BMP on arrival shows sodium 145, potassium 4.4, chloride 98, serum bicarb 39, BUN 40, creatinine 1.77, glucose 124. Troponins were elevated but flat. NT proBNP was significantly elevated 19,700. ECG on arrival showed a ventricular paced rhythm. Hemodynamically stable. today's evaluation of 06/27/2023, the patient is still having difficulty breathing. She remains on oxygen 5 L/m nasal cannula. Repeat chest x-ray was doneand it showed cardiomegaly and stable perihilar and bibasilar interstitial markings along with small bilateral pleural effusion consistent with CHF. Echocardiogram was done yesterday and the patient was found to have a left insular ejection fraction of 35-40% with moderate MR, [id number] aortic regurgitation, severe tricuspid regurgitation and severe pulmonary hypertension. Labs from today are still pending. Creatinine was elevated at 1.77. Her pr oBNP level was 19,700 and the patient also had troponin levels of 0.06 and 0.05 and 0.06 respectively. The viral screen was negative including Covid 19. She is on Symbicort. She is on DuoNeb [facility]. She is on IV Solu-Medrol 60 mg every 6 hours. She is on Lasix 40 mg every 12 hours. She is also on anticoagulation with Eliquis. The fluid balance has not been accurately measured. She seems to be in a negative fluid balance for now. On 06/28/2023, the patient is being seen for a follow-up. Still having increased shortness of breath and he she continues to be on oxygen 5 L/m nasal cannula. She is bronchospastic and wheezy. She remains on bronchodilators. She remains on steroids. She is also on diuretics and the patient is on Lasix 40 mg IV every 12 hours. No major improvement since yesterday. She has COPD and biventricular heart failure. Labs show a BUN of 59 with a creatinine of 2.2. Sodium level is at 145, bili cigars at 9 with a hemoglobin of 9.9. The fluid balance has been negative. Echo measurements of the input output has not been established. She remains on anticoagulation with Eliquis 5 mg by mouth twice a day. Rest of the home medications have been resumed. On today's evaluation of , the patient is feeling better. She is short of breath. She remains on a combination of bronchodilators, steroids, and diuretics and the patient remains on Lasix 40 mg by mouth twice a day. She remains on IV Solu-Medrol 60 g every 6 hours. She is on 4 L of oxygen nasal cannula with a pulse ox of 90%. She is able to sit up on a chair. Her white cell count is at 8.7 with a hemoglobin of 10.5 and a platelet count of 1. There is a component of an acute kidney injury. BUN is at 70 with a creatinine of 2.5 and the patient was taken off the IV Lasix and switch to oral Lasix. Sodium is at 142 and a potassium level is at 5.9. No other significant events overnight. No altered mentation. No chest pain. Remains on anticoagulation with Eliquis 5 mg by mouth twice a day. On today's evaluation of 06/30/2023, the patient is being seen for a follow-up. The patient continues to struggle with her breathing. Earlier today, the patient was noted to be more somnolent and sleepy. Based on that, a blood gas was done and the patient was found to have a pH of 7.26 and the P CO2 of 87 and pO2 of 61. Based on that, the patient was placed on a BiPAP at a pressure of 10/5 cm of water. The patient continues to diurese. Creatinine is up to 2.4 with a BUN of 79. The findings of the case. Sodium is at 142. Ultrasound of the kidneys were done and there is chronic mild medical renal disease. No solid kidney masses. No evidence of hydronephrosis. No kidney stones. The patient continues to be on DuoNeb neb blotchiness on the clock. The patient is also on Symbicort. The patient is receiving IV Solu-Medrol 40 mg on a daily basis. In terms of diuresis, the patient is on oral Lasix 40 mg by mouth twice a day. Rest of the medications unchanged. The patient Objective - Vital Signs Vital signs: Vital Signs Temp 97.8 F 06/30/23 17:47 Pulse 70 06/30/23 17:47 Resp 19 06/30/23 17:47 BP 135/77 06/30/23 17:47 Pulse Ox 92 L 06/30/23 17:47 FiO2 Intake & Output 06/29/23 06/30/23 06/30/23 18:59 06:59 18:59 Intake Total 100 Output Total 501 Balance -401 Weight 85 kg Intake: Oral 100 Output: Urine 500 Stool 1 Other: Voiding Method Bedside Commode # Voids 1 3 1 # Bowel Movements 1 1 - Exam GENERAL EXAM: Alert, 70-year-old white female , comfortable in no apparent distress.somnolent and sleepy and the patient was placed on BiPAP at a pressure of 12/5 cm of water HEAD: Normocephalic and atraumatic EYES: Normal reaction of pupils, equal size. NOSE: Clear with pink turbinates. THROAT: No erythema or exudates. NECK: No masses, no JVD. CHEST: No chest wall deformity. LUNGS: Equal air entry with expiratory wheezes heard throughout. No crackles or focal dullness. No conversational dyspnea or accessory muscle use.. CVS: S1 and S2 normal with no audible murmur, regular rhythm. No extra heart sounds ABDOMEN: No hepatosplenomegaly, active bowel sounds, no guarding or rigidity. SPINE: No scoliosis or deformity SKIN: No rashes CENTRAL NERVOUS SYSTEM: No focal deficits, tone is normal in all 4 extremities., increased lethargy and somnolence EXTREMITIES: There is 2+ bilateral lower extremity pitting edema. No clubbing, or cyanosis. Peripheral pulses are intact. - Labs CBC & Chem 7: 06/30/23 05:23 06/30/23 14:52 Labs: Abnormal Lab Results - Last 24 Hours (Table) 06/29/23 06/30/23 06/30/23 Range/Units 18:16 05:23 05:23 RBC 3.80 L (4.10-5.20) X 10*6/uL Hgb 10.5 L (12.0-15.0) g/dL MCV 100.8 H (80.0-97.0) FL MCHC 27.4 L (32.0-37.0) g/dL RDW 18.1 H (11.5-14.5) % NRBC/100 WBC Diff 0.03 H (0.00-0.01) X 10*3/uL ABG pH (7.35-7.45) ABG pCO2 (35-45) mmHg ABG pO2 (83-108) mmHg ABG HCO3 (21-25) mmol/L ABG Total CO2 (19-24) mmol/L ABG O2 Saturation (94-97) % Potassium 5.2 H (3.5-5.1) mmol/L Carbon Dioxide 34.5 H (21.6-31.8) mmol/L BUN 79.0 H (9.0-27.0) mg/dL Creatinine 2.4 H (0.6-1.5) mg/dL Est GFR (CKD-EPI) 20 L (>=60) BUN/Creatinine Ratio 32.92 H (12.00-20.00) Ratio Glucose 207 H (70-110) mg/dL 06/30/23 Range/Units 14:36 RBC (4.10-5.20) X 10*6/uL Hgb (12.0-15.0) g/dL MCV (80.0-97.0) FL MCHC (32.0-37.0) g/dL RDW (11.5-14.5) % NRBC/100 WBC Diff (0.00-0.01) X 10*3/uL ABG pH 7.26 L (7.35-7.45) ABG pCO2 87 H* (35-45) mmHg ABG pO2 61 L (83-108) mmHg ABG HCO3 39 H (21-25) mmol/L ABG Total CO2 42 H (19-24) mmol/L ABG O2 Saturation 88.9 L (94-97) % Potassium (3.5-5.1) mmol/L Carbon Dioxide (21.6-31.8) mmol/L BUN (9.0-27.0) mg/dL Creatinine (0.6-1.5) mg/dL Est GFR (CKD-EPI) (>=60) BUN/Creatinine Ratio (12.00-20.00) Ratio Glucose (70-110) mg/dL Assessment and Plan Assessment: Acute on chronic hypoxemic respiratory failure, secondary to a combination of exacerbation of systolic congestive heart failure/biventricular heart failure as the patient has LV dysfunction with an ejection fraction of 35% addition to valvular insufficiency involving the mitral and aortic valve and severe tricuspid regurgitation with severe pulmonary hypertension. The RV is also s everely dilated. Patient also has a component of acute COPD exacerbation. Chest x-ray on arrival showed cardiomegaly with bilateral pleural effusions right greater than left with likely compressive atelectasis, however, underlying infectious process could not be ruled out on today's blood gas, the patient is showing signs of acute on top of chronic hypercapnic respiratory failure. The patient was placed back on a BiPAP at a pressure of 10/5 cm of water. Severe oxygen dependent COPD, and the patient has chronic hypoxic respiratory failure normally on 3 L Chronic hypoxemic respiratory failure, normally maintained on 3 L/m nasal cannula secondary to above Severe pulmonary hypertension Chronic kidney disease stage IV, patient is currently on diuretics with Lasixmonitor renal function remains unchanged Anemia of chronic disease Paroxysmal atrial fibrillation, anticoagulated on Eliquis Chronically elevated troponins History of permanent pacemaker implantation, currently ventricularly paced Remote history of breast cancer, with previous lumpectomy and radiation Nonocclusive coronary artery disease Previous history of atrial fibrillation Plan: Keepthe patient on BiPAP overnight Switinto no oral Lasix Continue same treatmentof bronchodilators and IV Solu-Medrol reviewed the echocardiogram and the patient has biventricular failure Continue Solu-Medrol, 40 mg IV every 24 hours Continue bronchodilators Continue anticoagulation with Eliquis Monitor renal function Titrate FiO2 to maintain a saturation above 90% findings on the case and monitor renal function. Ultrasound the kidneys are showing no evidence of any hydronephrosis We'll continue to follow.
[2023-06-30] MEDS: METOPROLOL SUCCINATE (ER) 25 MG TAB.ER.24H PO SCH (19:49)
[2023-06-30] MEDS: LORATADINE 10 MG TAB PO SCH (19:50)
[2023-06-30] MEDS: MONTELUKAST 10 MG TAB PO SCH (19:50)
[2023-07-01] MEDS: PANTOPRAZOLE 40 MG TABLET PO SCH ×2 (06:55→18:11)
[2023-07-01 07:56] LABS: Anisocytosis Slight; HCT 37.5 % (34.0-46.0); HGB 10.9 gm/dL (11.4-16.0); Hypochromasia Marked; MCHC 29.1 g/dL (31.0-37.0); MCV 99.5 fL (80.0-100.0); Macrocytosis Slight; Mean Platelet Volume 10.5; Platelet Count 166 k/uL (150-450); RBC 3.77 m/uL (3.80-5.40); WBC 9.4 k/uL (3.8-10.6)
[2023-07-01 08:12] LABS: African American GFR (CKD) 21 (>60 ml/min/1.73 sqM); Blood Urea Nitrogen 96 mg/dL (7-17); Calcium 8.9 mg/dL (8.4-10.2); Chloride 93 mmol/L (98-107); Glucose 147 mg/dL (74-99); Non-African American GFR(CKD) 18 (>60 ml/min/1.73 sqM); Sodium 142 mmol/L (137-145)
[2023-07-01] MEDS: ALBUTEROL NEBULIZED 2.5 MG/3 ML INHALATION SCH ×4 (08:13→20:53)
[2023-07-01] MEDS: SYMBICORT 160-4.5 MCG INHALER INHALATION SCH ×2 (08:14→21:17)
[2023-07-01 08:18] LABS: Anion Gap 14 mmol/L; Carbon Dioxide 35 mmol/L (22-30)
--- NOTE | 2023-07-01 08:55 | XR ---
EXAMINATION TYPE: XR chest 1V DATE OF EXAM: 07/01/2023 COMPARISON: 06/28/2023 HISTORY: 78-year-old female CHF TECHNIQUE: Single frontal view of the chest is obtained. FINDINGS: Left anterior chest wall pacemaker generator with right atrial, right ventricular, and cor onary sinus leads. Heart remains moderately enlarged. Ongoing moderate right and trace left pleural e ffusions. Patchy opacities remain throughout the mid and lower lungs. IMPRESSION: Ongoing moderate cardiomegaly and pulmonary vascular congestion. Ongoing moderate right and trace left pleural effusions with adjacent atelectasis and/or consolidation.
[2023-07-01] MEDS: CHOLECALCIFEROL 25 MCG (1000 IU) TABLET PO SCH (09:33)
[2023-07-01] MEDS: MAGNESIUM OXIDE 400 MG TAB PO SCH (09:34)
[2023-07-01] MEDS: APIXABAN 5 MG TAB PO SCH ×2 (09:34→20:32)
[2023-07-01] MEDS: FERROUS SULFATE 325 MG TAB PO SCH (09:34)
[2023-07-01] MEDS: FUROSEMIDE 40 MG TAB PO SCH ×2 (09:34→18:11)
[2023-07-01] MEDS: allopurinoL 300 MG TAB PO SCH (09:34)
[2023-07-01] MEDS: methylPREDNISolone SOD SUCCI 40 MG/ML 1 ML VIAL IV SCH (09:34)
--- NOTE | 2023-07-01 09:49 | P.PN ---
Subjective Patient is seen in follow-up for acute kidney injury on chronic kidney disease. Renal function stable. Sitting up in chair. Has been voiding. Oral intake fair. No vomiting or diarrhea. Vital signs are stable. General: No acute distress. HEENT: Head exam is unremarkable. On nasal cannula. LUNGS: No audible rhonchi or wheezes. HEART: Rate and Rhythm are regular. ABDOMEN: Nontender. EXTREMITITES: 1+ edema. Objective - Vital Signs Vital signs: Vital Signs Temp 97.6 F 07/01/23 08:00 Pulse 85 07/01/23 08:25 Resp 20 07/01/23 08:00 BP 127/75 07/01/23 08:00 Pulse Ox 91 L 07/01/23 08:00 FiO2 40 06/30/23 23:59 Intake & Output 06/30/23 07/01/23 07/01/23 18:59 06:59 18:59 Intake Total 100 Output Total 501 Balance -401 Weight 84 kg Intake: Oral 100 Output: Urine 500 Stool 1 Other: Voiding Method Bedside Commode # Voids 1 2 1 # Bowel Movements 1 1 - Labs CBC & Chem 7: 07/01/23 07:24 07/01/23 07:24 Labs: Abnormal Lab Results - Last 24 Hours (Table) 06/30/23 06/30/23 06/30/23 Range/Units 05:23 05:23 14:36 RBC 3.80 L (4.10-5.20) X 10*6/uL Hgb 10.5 L (12.0-15.0) g/dL MCV 100.8 H (80.0-97.0) FL MCHC 27.4 L (32.0-37.0) g/dL RDW 18.1 H (11.5-14.5) % NRBC/100 WBC Diff 0.03 H (0.00-0.01) X 10*3/uL ABG pH 7.26 L (7.35-7.45) ABG pCO2 87 H* (35-45) mmHg ABG pO2 61 L (83-108) mmHg ABG HCO3 39 H (21-25) mmol/L ABG Total CO2 42 H (19-24) mmol/L ABG O2 Saturation 88.9 L (94-97) % Chloride (98-107) mmol/L Carbon Dioxide 34.5 H (21.6-31.8) mmol/L BUN 79.0 H (9.0-27.0) mg/dL Creatinine 2.4 H (0.6-1.5) mg/dL Est GFR (CKD-EPI) 20 L (>=60) BUN/Creatinine Ratio 32.92 H (12.00-20.00) Ratio Glucose 207 H (70-110) mg/dL Troponin I (0.000-0.034) ng/mL 07/01/23 07/01/23 07/01/23 Range/Units 07:24 07:24 07:28 RBC 3.77 L (4.10-5.20) X 10*6/uL Hgb 10.9 L (12.0-15.0) g/dL MCV (80.0-97.0) FL MCHC 29.1 L (32.0-37.0) g/dL RDW 17.0 H (11.5-14.5) % NRBC/100 WBC Diff (0.00-0.01) X 10*3/uL ABG pH (7.35-7.45) ABG pCO2 (35-45) mmHg ABG pO2 (83-108) mmHg ABG HCO3 (21-25) mmol/L ABG Total CO2 (19-24) mmol/L ABG O2 Saturation (94-97) % Chloride 93 L (98-107) mmol/L Carbon Dioxide 35 H (21.6-31.8) mmol/L BUN 96 H (9.0-27.0) mg/dL Creatinine 2.43 H (0.6-1.5) mg/dL Est GFR (CKD-EPI) (>=60) BUN/Creatinine Ratio (12.00-20.00) Ratio Glucose 147 H (70-110) mg/dL Troponin I 0.063 H* (0.000-0.034) ng/mL Assessment and Plan Plan: Assessment: 1. Acute kidney injury secondary to ATN secondary to cardiorenal syndrome. No hydronephrosis noted on renal ultrasound. Right kidney atrophic. Creatinine peaked at 2.5 this admission and is stable at 2.43 today. 2. Chronic kidney disease stage IIIB with baseline creatinine 1.5-1.8. Suspect nephrosclerosis. 3. Acute on chronic systolic CHF with ejection fraction of 35-40% with moderate mitral regurgitation, mild to moderate aortic insufficiency and severe tricuspid regurgitation and pulmonary hypertension. 4. Acute hypoxic respiratory failure. 5. Volume overload. Plan: Maintain Lasix. Metolazone 5 mg once today. Monitor bladder scans to rule out urinary retention. Follow-up UA. Avoid nephrotoxins. Low-salt diet and 1500 mL fluid restriction. Continue to monitor renal function and urine output.
[2023-07-01] MEDS ORDERED: metOLazone 5 MG TAB PO ONE (10:00)
[2023-07-01 15:09] LABS: Appearance,Urine Clear (Clear); Color,Urine Yellow
[2023-07-01 15:11] LABS: PH, Urine 6.5 (5.0-8.0)
[2023-07-01 15:12] LABS: Bilirubin,Urine Negative (Negative); Blood,Urine Negative (Negative); Glucose,Urine (UA) Negative (Negative); Ketones,Urine Negative (Negative); Nitrite,Urine Negative (Negative); Protein,Urine Trace (Negative); Urobilinogen,Urine <2.0 mg/dL (<2.0)
[2023-07-01 15:14] LABS: Leukocyte Esterase,Urine Negative (Negative)
--- NOTE | 2023-07-01 15:30 | P.PN ---
Subjective Progress Note Date: 07/01/23 I am seeing this patient in new consultation today 06/26/2023 in the emergency room as she has progressively become more short of breath over the last couple weeks. Patient is a 78-year-old white female with past medical history significant for oxygen dependent COPD, CHF, chronic kidney disease, atrial fibrillation, permanent pacemaker, breast cancer with previous lumpectomy and radiation , among other things. She follows with a Dr. Ocampo, in [place], and has moved to the area within the last year. Patient states that she's had progressively worsening shortness of breath over the last couple weeks. She is normally oxygen dependent on 3 L/m nasal cannula. Her shortness of breath is mostly exertional. It's accompanied with chest tightness. She's had a dry nonproductive cough. Denies any fevers. Denies sick contacts. She also states that over weekend, she went to [place] with her family, and did not want to take her Lasix. She held her Lasix on her own from to Monday. Her breathing did get worse. She also admits increased lower extremity swelling. Patient is currently sitting up in bed, on 3 L/m nasal cannula, in no acute distress. Chest x-ray on arrival showed cardiomegaly with bilateral pleural effusions right greater than left and likely bibasilar compressive atelectasis, underlying infectious process could not be ruled out. Most recent echocardiogram from October of this year shows borderline LV systolic function with an EF of 50%. Severe pulmonary hypertension with a RVSP of 67 mmHg, severe right ventricular dilation and moderate tricuspid regurgitation. CBC on arrival showed a WBC count of 6.5, hemoglobin 10.6, hematocrit 35.4, platelets 190. BMP on arrival shows sodium 145, potassium 4.4, chloride 98, serum bicarb 39, BUN 40, creatinine 1.77, glucose 124. Troponins were elevated but flat. NT proBNP was significantly elevated 19,700. ECG on arrival showed a ventricular paced rhythm. Hemodynamically stable. today's evaluation of 06/27/2023, the patient is still having difficulty breathing. She remains on oxygen 5 L/m nasal cannula. Repeat chest x-ray was doneand it showed cardiomegaly and stable perihilar and bibasilar interstitial markings along with small bilateral pleural effusion consistent with CHF. Echocardiogram was done yesterday and the patient was found to have a left insular ejection fraction of 35-40% with moderate MR, [id number] aortic regurgitation, severe tricuspid regurgitation and severe pulmonary hypertension. Labs from today are still pending. Creatinine was elevated at 1.77. Her pr oBNP level was 19,700 and the patient also had troponin levels of 0.06 and 0.05 and 0.06 respectively. The viral screen was negative including Covid 19. She is on Symbicort. She is on DuoNeb formerly [facility]. She is on IV Solu-Medrol 60 mg every 6 hours. She is on Lasix 40 mg every 12 hours. She is also on anticoagulation with Eliquis. The fluid balance has not been accurately measured. She seems to be in a negative fluid balance for now. On 06/28/2023, the patient is being seen for a follow-up. Still having increased shortness of breath and he she continues to be on oxygen 5 L/m nasal cannula. She is bronchospastic and wheezy. She remains on bronchodilators. She remains on steroids. She is also on diuretics and the patient is on Lasix 40 mg IV every 12 hours. No major improvement since yesterday. She has COPD and biventricular heart failure. Labs show a BUN of 59 with a creatinine of 2.2. Sodium level is at 145, bili cigars at 9 with a hemoglobin of 9.9. The fluid balance has been negative. Echo measurements of the input output has not been established. She remains on anticoagulation with Eliquis 5 mg by mouth twice a day. Rest of the home medications have been resumed. On today's evaluation of , the patient is feeling better. She is short of breath. She remains on a combination of bronchodilators, steroids, and diuretics and the patient remains on Lasix 40 mg by mouth twice a day. She remains on IV Solu-Medrol 60 g every 6 hours. She is on 4 L of oxygen nasal cannula with a pulse ox of 90%. She is able to sit up on a chair. Her white cell count is at 8.7 with a hemoglobin of 10.5 and a platelet count of 1. There is a component of an acute kidney injury. BUN is at 70 with a creatinine of 2.5 and the patient was taken off the IV Lasix and switch to oral Lasix. Sodium is at 142 and a potassium level is at 5.9. No other significant events overnight. No altered mentation. No chest pain. Remains on anticoagulation with Eliquis 5 mg by mouth twice a day. On today's evaluation of 06/30/2023, the patient is being seen for a follow-up. The patient continues to struggle with her breathing. Earlier today, the patient was noted to be more somnolent and sleepy. Based on that, a blood gas was done and the patient was found to have a pH of 7.26 and the P CO2 of 87 and pO2 of 61. Based on that, the patient was placed on a BiPAP at a pressure of 10/5 cm of water. The patient continues to diurese. Creatinine is up to 2.4 with a BUN of 79. The findings of the case. Sodium is at 142. Ultrasound of the kidneys were done and there is chronic mild medical renal disease. No solid kidney masses. No evidence of hydronephrosis. No kidney stones. The patient continues to be on DuoNeb neb blotchiness on the clock. The patient is also on Symbicort. The patient is receiving IV Solu-Medrol 40 mg on a daily basis. In terms of diuresis, the patient is on oral Lasix 40 mg by mouth twice a day. Rest of the medications unchanged. On 07/01/2023, the patient is being seen for a follow-up. Unfortunately, she still having episodes of lethargy and increased sleepiness and diminished level of consciousness. Earlier this morning she was fine and subsequently she became more lethargic. I suspect that the patient is having some episodes of hypercapnic respiratory failure. She is on enough being placed on a BiPAP. She remains on the same treatment for now. She is on DuoNeb updrafts and IV Solu- Medrol 40 mg every 24-hour speech is also on oral Lasix 40 mg twice a day. A repeat chest x-ray was done and the chest x-ray findings are showing carotid negative pulmonary vessel congestion. There is moderate right and small left- sided pleural effusion. She has significant kyphoscoliosis of the chest. Labs from today shows improvement of the scope 9.4, he was sent 0.9, sodium levels of 142, potassium is at 5, BUN is at 96 with creatinine of 2.4. UA is negative. Troponins of 0.06. Objective - Vital Signs Vital signs: Vital Signs Temp 97.6 F 07/01/23 08:00 Pulse 88 07/01/23 12:03 Resp 20 07/01/23 08:00 BP 127/75 07/01/23 08:00 Pulse Ox 91 L 07/01/23 08:00 FiO2 40 06/30/23 23:59 Intake & Output 06/30/23 07/01/23 07/01/23 18:59 06:59 18:59 Intake Total 100 Output Total 501 Balance -401 Weight 84 kg Intake: Oral 100 Output: Urine 500 Stool 1 Other: Voiding Method Bedside Commode # Voids 1 2 1 # Bowel Movements 1 1 - Exam GENERAL EXAM: Alert, 70-year-old white female , comfortable in no apparent distress.somnolent and sleepy and the patient was placed on BiPAP at a pressure of 12/5 cm of water HEAD: Normocephalic and atraumatic EYES: Normal reaction of pupils, equal size. NOSE: Clear with pink turbinates. THROAT: No erythema or exudates. NECK: No masses, no JVD. CHEST: No chest wall deformity. LUNGS: Equal air entry with expiratory wheezes heard throughout. No crackles or focal dullness. No conversational dyspnea or accessory muscle use.. CVS: S1 and S2 normal with no audible murmur, regular rhythm. No extra heart sounds ABDOMEN: No hepatosplenomegaly, active bowel sounds, no guarding or rigidity. SPINE: No scoliosis or deformity SKIN: No rashes CENTRAL NERVOUS SYSTEM: No focal deficits, tone is normal in all 4 extremities., increased lethargy and somnolence EXTREMITIES: There is 2+ bilateral lower extremity pitting edema. No clubbing, or cyanosis. Peripheral pulses are intact. - Labs CBC & Chem 7: 07/01/23 07:24 07/01/23 07:24 Labs: Abnormal Lab Results - Last 24 Hours (Table) 06/30/23 07/01/23 07/01/23 Range/Units 14:36 07:24 07:24 RBC 3.77 L (3.80-5.40) m/uL Hgb 10.9 L (11.4-16.0) gm/dL MCHC 29.1 L (31.0-37.0) g/dL RDW 17.0 H (11.5-15.5) % ABG pH 7.26 L (7.35-7.45) ABG pCO2 87 H* (35-45) mmHg ABG pO2 61 L (83-108) mmHg ABG HCO3 39 H (21-25) mmol/L ABG Total CO2 42 H (19-24) mmol/L ABG O2 Saturation 88.9 L (94-97) % Chloride 93 L (98-107) mmol/L Carbon Dioxide 35 H (22-30) mmol/L BUN 96 H (7-17) mg/dL Creatinine 2.43 H (0.52-1.04) mg/dL Glucose 147 H (74-99) mg/dL Troponin I (0.000-0.034) ng/mL 07/01/23 Range/Units 07:28 RBC (3.80-5.40) m/uL Hgb (11.4-16.0) gm/dL MCHC (31.0-37.0) g/dL RDW (11.5-15.5) % ABG pH (7.35-7.45) ABG pCO2 (35-45) mmHg ABG pO2 (83-108) mmHg ABG HCO3 (21-25) mmol/L ABG Total CO2 (19-24) mmol/L ABG O2 Saturation (94-97) % Chloride (98-107) mmol/L Carbon Dioxide (22-30) mmol/L BUN (7-17) mg/dL Creatinine (0.52-1.04) mg/dL Glucose (74-99) mg/dL Troponin I 0.063 H* (0.000-0.034) ng/mL Assessment and Plan Assessment: Acute on chronic hypoxemic respiratory failure, secondary to a combination of exacerbation of systolic congestive heart failure/biventricular heart failure as the patient has LV dysfunction with an ejection fraction of 35% addition to valvular insufficiency involving the mitral and aortic valve and severe tricuspid regurgitation with severe pulmonary hypertension. The RV is also severely dilated. Patient also has a component of acute COPD exacerbation. Chest x-ray on arrival showed cardiomegaly with bilateral pleural effusions right greater than left with likely compressive atelectasis, however, underlying infectious process could not be ruled out on today's blood gas, the patient is showing signs of acute on top of chronic hypercapnic respiratory failure. The patient was placed back on a BiPAP at a pressure of 10/5 cm of water. Severe oxygen dependent COPD, and the patient has chronic hypoxic respiratory failure normally on 3 L Chronic hypoxemic respiratory failure, normally maintained on 3 L/m nasal cannula secondary to above Severe pulmonary hypertension Chronic kidney disease stage IV, patient is currently on diuretics with Lasixmonitor renal function remains unchanged Anemia of chronic disease Paroxysmal atrial fibrillation, anticoagulated on Eliquis Chronically elevated troponins History of permanent pacemaker implantation, currently ventricularly paced Remote history of breast cancer, with previous lumpectomy and radiation Nonocclusive coronary artery disease Previous history of atrial fibrillation Plan: Continue using BiPAP on and off during the day as the patient is having episodes of hypercapnic respiratory failure. Chest x-rays noted and the patient has significant kyphoscoliosis and restrictive lung disease in addition to cardiomegaly and small bilateral pleural effusions Continue oral Lasix Continue same treatmentof bronchodilators and IV Solu-Medrol reviewed the echocardiogram and the patient has biventricular failure Continue bronchodilators Continue anticoagulation with Eliquis Monitor renal function Titrate FiO2 to maintain a saturation above 90% findings on the case and monitor renal function. Ultrasound the kidneys are showing no evidence of any hydronephrosis We'll continue to follow.
[2023-07-01] MEDS: METOPROLOL SUCCINATE (ER) 25 MG TAB.ER.24H PO SCH (20:32)
[2023-07-01] MEDS: LORATADINE 10 MG TAB PO SCH (20:32)
[2023-07-01] MEDS: MONTELUKAST 10 MG TAB PO SCH (20:32)
[2023-07-02] MEDS: PANTOPRAZOLE 40 MG TABLET PO SCH ×2 (06:12→17:22)
--- NOTE | 2023-07-02 06:17 | P.PN ---
Subjective 78-year-old patient with past medical history significant for congestive heart failure, chronic kidney disease, history of a defibrillation status post pacemaker in place, previous history of breast cancer status post lumpectomy and radiation, COPD on home oxygen, presented to the emergency department with complaints of progressive shortness of breath. At baseline patient weighs 3 L of oxygen, however patient has been having more exertional shortness of breath as well as chest pain. This was associated with nonproductive cough, patient denies associated fever, chills, nausea, vomiting with 6 contact. states her symptoms started 1 week ago around when she went up with the family. Patient states she had her Lasix during that time and started to feel short of breath since then. She has noticed increased swelling and lower extremity as well Workup initiated in ER included a chest x-ray which showed bilateral pleural effusions as well as cardiomegaly. Workup in ER included CBC which were WBC count of 6.5 hemoglobin 10.6 platelet 190, serum chemistry shows sodium 145 potassium 4.5 chloride 98 , serum bicarbonate 39 BU and 40 creatinine 1.77. Patient had elevated troponin which remained flat in ED, N-terminal proBNP was noted to be 19,700, EKG obtained in ER showed paced rhythm Patient to be admitted to medical floor with consultation from pulmonary medicine and cardiology 06/27/2023: Patient seen and evaluated bedside patient seen in ER room 1, waiting for bed, continue patient on diuresis the patient input from pulmonary medicine, blood work reviewed, serum chemistry reviewed creatinine 2.09. N- terminal proBNP [id number] 06/28/2023: Patient seen and evaluated bedside, patient in room 485, patient does complain of shortness of breath, follow-up chest x-ray obtained shows slight improvement in pulmonary vascular congestion was on 6 L of oxygen weaned down to 4 L. Appreciate input from cardiology, WBC within normal limits, serum chemistry and renal function reviewed, creatinine 2.2 N-terminal proBNP [id number]. Pro-calcitonin was negative. Once kidney function improved patient will benefit from ELLEN 06/29/2023: Patient seen and evaluated bedside, patient does complain of shortness of breath however she states her breathing has improved, continue patient on Lasix, blood work reviewed, potassium 5.9, Patient patient to be given insulin, dextrose, calcium gluconate and sodium bicarbonate. Continue patient on Lasix, oral potassium supplementation discontinued 06/30/2023: Patient seen and evaluated bedside, patient does complain of shortness of breath, blood work reviewed, potassium 5.5, lokelma given, follow- up on potassium levels. Renal function creatinine 2.4, nephrology following. Continue patient on Lasix transitioned from IV to oral. IV Solu-Medrol weaned down to daily as well 07/01/2023 Patient is still complaining from shortness of breath She is requiring BiPAP at night Currently she is on 4 L oxygen, at home she is on 3 L/m She still have bilateral congestion in the right pleural effusion of the chest x-ray Continued on oral Lasix 40 mg twice daily and Zaroxolyn 1 dose was given today Also she is on IV Solu-Medrol 40 mg once daily with pulmonary team following him closely On liquids for her chronic A. fib Objective - Vital Signs Vital signs: Vital Signs Temp 97.6 F 07/01/23 08:00 Pulse 86 07/01/23 11:54 Resp 20 07/01/23 08:00 BP 127/75 07/01/23 08:00 Pulse Ox 91 L 07/01/23 08:00 FiO2 40 06/30/23 23:59 Intake & Output 06/30/23 07/01/23 07/01/23 18:59 06:59 18:59 Intake Total 100 Output Total 501 Balance -401 Weight 84 kg Intake: Oral 100 Output: Urine 500 Stool 1 Other: Voiding Method Bedside Commode # Voids 1 2 1 # Bowel Movements 1 1 - Exam GENERAL: The patient is alert and oriented x3, not in any acute distress. Well developed, well nourished. HEENT: Pupils are round and equally reacting to light. EOMI. No scleral icterus. No conjunctival pallor. Normocephalic, atraumatic. No pharyngeal erythema. No thyromegaly. CARDIOVASCULAR: S1 and S2 present. No murmurs, rubs, or gallops. -PULMONARY: Chest is clear to auscultation, no wheezing , bilateral basal crackles. ABDOMEN: Soft, nontender, nondistended, normoactive bowel sounds. No palpable organomegaly. MUSCULOSKELETAL: No joint swelling or deformity. EXTREMITIES: No cyanosis, clubbing, or pedal edema. NEUROLOGICAL: Gross neurological examination did not reveal any focal deficits. SKIN: No rashes. no petechiae. - Labs CBC & Chem 7: 07/01/23 07:24 12 07:24 Labs: Abnormal Lab Results - Last 24 Hours (Table) 06/30/23 07/01/23 07/01/23 Range/Units 14:36 07:24 07:24 RBC 3.77 L (3.80-5.40) m/uL Hgb 10.9 L (11.4-16.0) gm/dL MCHC 29.1 L (31.0-37.0) g/dL RDW 17.0 H (11.5-15.5) % ABG pH 7.26 L (7.35-7.45) ABG pCO2 87 H* (35-45) mmHg ABG pO2 61 L (83-108) mmHg ABG HCO3 39 H (21-25) mmol/L ABG Total CO2 42 H (19-24) mmol/L ABG O2 Saturation 88.9 L (94-97) % Chloride 93 L (98-107) mmol/L Carbon Dioxide 35 H (22-30) mmol/L BUN 96 H (7-17) mg/dL Creatinine 2.43 H (0.52-1.04) mg/dL Glucose 147 H (74-99) mg/dL Troponin I (0.000-0.034) ng/mL 07/01/23 Range/Units 07:28 RBC (3.80-5.40) m/uL Hgb (11.4-16.0) gm/dL MCHC (31.0-37.0) g/dL RDW (11.5-15.5) % ABG pH (7.35-7.45) ABG pCO2 (35-45) mmHg ABG pO2 (83-108) mmHg ABG HCO3 (21-25) mmol/L ABG Total CO2 (19-24) mmol/L ABG O2 Saturation (94-97) % Chloride (98-107) mmol/L Carbon Dioxide (22-30) mmol/L BUN (7-17) mg/dL Creatinine (0.52-1.04) mg/dL Glucose (74-99) mg/dL Troponin I 0.063 H* (0.000-0.034) ng/mL Assessment and Plan Assessment: Acute on chronic congestive heart failure diastolic dysfunction Acute on chronic hypoxic respiratory failure multifactorial COPD, CHF exacerbation Severe COPD with chronic hypoxia on 3 L of oxygen at baseline Elevated troponin secondary to type II NE hypoxia Transient hyperkalemia Acute kidney injury Chronic kidney disease stage IV Paroxysmal atrial fibrillation on anticoagulation 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 Plan: Continue with Lasix 4 mg twice daily Continue with IV Solu-Medrol Continue with oxygen therapy on BiPAP as needed Several consultants on the case for the cardiology signed off, pulmonary and nephrology Labs and medication were reviewed.. Continue same treatment. Continue with symptomatic treatment. Resume home medication. Monitor labs and vitals. DVT and GI prophylaxis. Further recommendations as per clinical course of the patient DVT prophylaxis: eliquis GI Prophylaxis: Ppi PT/OT: Pending Prognosis is guarded
[2023-07-02] MEDS: APIXABAN 5 MG TAB PO SCH ×2 (08:38→21:21)
[2023-07-02] MEDS: allopurinoL 300 MG TAB PO SCH (08:38)
[2023-07-02] MEDS: CHOLECALCIFEROL 25 MCG (1000 IU) TABLET PO SCH (08:38)
[2023-07-02] MEDS: FERROUS SULFATE 325 MG TAB PO SCH (08:38)
[2023-07-02] MEDS: FUROSEMIDE 40 MG TAB PO SCH ×2 (08:38→17:23)
[2023-07-02] MEDS: MAGNESIUM OXIDE 400 MG TAB PO SCH (08:38)
[2023-07-02] MEDS: ALBUTEROL NEBULIZED 2.5 MG/3 ML INHALATION SCH ×4 (09:12→19:56)
[2023-07-02] MEDS: SYMBICORT 160-4.5 MCG INHALER INHALATION SCH ×2 (09:12→19:57)
[2023-07-02] MEDS: methylPREDNISolone SOD SUCCI 40 MG/ML 1 ML VIAL IV SCH (09:17)
[2023-07-02 09:27] LABS: Magnesium 3.1 mg/dL (1.5-2.4)
[2023-07-02 09:42] LABS: BUN/Creat Ratio 39.23 Ratio (12.00-20.00); Calcium 9.4 mg/dL (8.7-10.3); Carbon Dioxide 36.4 mmol/L (21.6-31.8); Chloride 94 mmol/L (96-109); Glucose 141 mg/dL (70-110); Sodium 142 mmol/L (135-145)
[2023-07-02] MEDS ORDERED: SODIUM ZIRCONIUM CYCLOSILICATE 10 GM PACKET PO ONE (12:08)
--- NOTE | 2023-07-02 12:09 | P.PN ---
Subjective Patient is seen in follow-up for acute kidney injury on chronic kidney disease. Renal function slightly worse. Sitting up in chair. Has been voiding. Oral intake fair. No vomiting or diarrhea. Vital signs are stable. General: No acute distress. HEENT: Head exam is unremarkable. On BiPAP. LUNGS: No audible rhonchi or wheezes. HEART: Rate and Rhythm are regular. ABDOMEN: Nontender. EXTREMITITES: Trace edema. Objective - Vital Signs Vital signs: Vital Signs Temp 98.1 F 07/02/23 08:00 Pulse 73 07/02/23 11:57 Resp 20 07/02/23 08:00 BP 128/77 07/02/23 08:00 Pulse Ox 94 L 07/02/23 09:12 FiO2 40 07/02/23 02:30 Intake & Output 07/01/23 07/02/23 07/02/23 18:59 06:59 18:59 Weight 84.8 kg Other: # Voids 1 3 - Labs CBC & Chem 7: 07/01/23 07:24 07/02/23 04:49 Labs: Abnormal Lab Results - Last 24 Hours (Table) 07/01/23 07/02/23 Range/Units 07:40 04:49 Chloride 94 L (96-109) mmol/L Carbon Dioxide 36.4 H (21.6-31.8) mmol/L BUN 102.0 A* (9.0-27.0) mg/dL Creatinine 2.6 H (0.6-1.5) mg/dL Est GFR (CKD-EPI) 18 L (>=60) BUN/Creatinine Ratio 39.23 H (12.00-20.00) Ratio Glucose 141 H (70-110) mg/dL Magnesium 3.1 H (1.5-2.4) mg/dL Urine Protein Trace H (Negative) Assessment and Plan Plan: Assessment: 1. Acute kidney injury secondary to ATN secondary to cardiorenal syndrome. No hydronephrosis noted on renal ultrasound. Right kidney atrophic. UA fairly benign. Renal function worse from diuresis. Creatinine 2.6 today. Elevated BUN partially due to steroids. 2. Chronic kidney disease stage IIIB with baseline creatinine 1.5-1.8. Suspect nephrosclerosis. 3. Acute on chronic systolic CHF with ejection fraction of 35-40% with moderate mitral regurgitation, mild to moderate aortic insufficiency and severe tricuspid regurgitation and pulmonary hypertension. 4. Acute hypoxic respiratory failure. 5. Volume overload. Plan: Maintain Lasix. Status post 1 dose of metolazone given 07/01/2023. Monitor bladder scans to rule out urinary retention. Avoid nephrotoxins. Low-salt diet and 1500 mL fluid restriction. Continue to monitor renal function and urine output.
--- NOTE | 2023-07-02 12:40 | P.PN ---
Subjective Progress Note Date: 07/02/23 I am seeing this patient in new consultation today 06/26/2023 in the emergency room as she has progressively become more short of breath over the last couple weeks. Patient is a 78-year-old white female with past medical history significant for oxygen dependent COPD, CHF, chronic kidney disease, atrial fibrillation, permanent pacemaker, breast cancer with previous lumpectomy and radiation , among other things. She follows with a Dr. Ocampo, in [place], and has moved to the area within the last year. Patient states that she's had progressively worsening shortness of breath over the last couple weeks. She is normally oxygen dependent on 3 L/m nasal cannula. Her shortness of breath is mostly exertional. It's accompanied with chest tightness. She's had a dry nonproductive cough. Denies any fevers. Denies sick contacts. She also states that over weekend, she went to [place] with her family, and did not want to take her Lasix. She held her Lasix on her own from to Monday. Her breathing did get worse. She also admits increased lower extremity swelling. Patient is currently sitting up in bed, on 3 L/m nasal cannula, in no acute distress. Chest x-ray on arrival showed cardiomegaly with bilateral pleural effusions right greater than left and likely bibasilar compressive atelectasis, underlying infectious process could not be ruled out. Most recent echocardiogram from October of this year shows borderline LV systolic function with an EF of 50%. Severe pulmonary hypertension with a RVSP of 67 mmHg, severe right ventricular dilation and moderate tricuspid regurgitation. CBC on arrival showed a WBC count of 6.5, hemoglobin 10.6, hematocrit 35.4, platelets 190. BMP on arrival shows sodium 145, potassium 4.4, chloride 98, serum bicarb 39, BUN 40, creatinine 1.77, glucose 124. Troponins were elevated but flat. NT proBNP was significantly elevated 19,700. ECG on arrival showed a ventricular paced rhythm. Hemodynamically stable. today's evaluation of 06/27/2023, the patient is still having difficulty breathing. She remains on oxygen 5 L/m nasal cannula. Repeat chest x-ray was doneand it showed cardiomegaly and stable perihilar and bibasilar interstitial markings along with small bilateral pleural effusion consistent with CHF. Echocardiogram was done yesterday and the patient was found to have a left insular ejection fraction of 35-40% with moderate MR, [id number] aortic regurgitation, severe tricuspid regurgitation and severe pulmonary hypertension. Labs from today are still pending. Creatinine was elevated at 1.77. Her pr oBNP level was 19,700 and the patient also had troponin levels of 0.06 and 0.05 and 0.06 respectively. The viral screen was negative including Covid 19. She is on Symbicort. She is on DuoNeb [facility]. She is on IV Solu-Medrol 60 mg every 6 hours. She is on Lasix 40 mg every 12 hours. She is also on anticoagulation with Eliquis. The fluid balance has not been accurately measured. She seems to be in a negative fluid balance for now. On 06/28/2023, the patient is being seen for a follow-up. Still having increased shortness of breath and he she continues to be on oxygen 5 L/m nasal cannula. She is bronchospastic and wheezy. She remains on bronchodilators. She remains on steroids. She is also on diuretics and the patient is on Lasix 40 mg IV every 12 hours. No major improvement since yesterday. She has COPD and biventricular heart failure. Labs show a BUN of 59 with a creatinine of 2.2. Sodium level is at 145, bili cigars at 9 with a hemoglobin of 9.9. The fluid balance has been negative. Echo measurements of the input output has not been established. She remains on anticoagulation with Eliquis 5 mg by mouth twice a day. Rest of the home medications have been resumed. On today's evaluation of , the patient is feeling better. She is short of breath. She remains on a combination of bronchodilators, steroids, and diuretics and the patient remains on Lasix 40 mg by mouth twice a day. She remains on IV Solu-Medrol 60 g every 6 hours. She is on 4 L of oxygen nasal cannula with a pulse ox of 90%. She is able to sit up on a chair. Her white cell count is at 8.7 with a hemoglobin of 10.5 and a platelet count of 1. There is a component of an acute kidney injury. BUN is at 70 with a creatinine of 2.5 and the patient was taken off the IV Lasix and switch to oral Lasix. Sodium is at 142 and a potassium level is at 5.9. No other significant events overnight. No altered mentation. No chest pain. Remains on anticoagulation with Eliquis 5 mg by mouth twice a day. On today's evaluation of 06/30/2023, the patient is being seen for a follow-up. The patient continues to struggle with her breathing. Earlier today, the patient was noted to be more somnolent and sleepy. Based on that, a blood gas was done and the patient was found to have a pH of 7.26 and the P CO2 of 87 and pO2 of 61. Based on that, the patient was placed on a BiPAP at a pressure of 10/5 cm of water. The patient continues to diurese. Creatinine is up to 2.4 with a BUN of 79. The findings of the case. Sodium is at 142. Ultrasound of the kidneys were done and there is chronic mild medical renal disease. No solid kidney masses. No evidence of hydronephrosis. No kidney stones. The patient continues to be on DuoNeb neb blotchiness on the clock. The patient is also on Symbicort. The patient is receiving IV Solu-Medrol 40 mg on a daily basis. In terms of diuresis, the patient is on oral Lasix 40 mg by mouth twice a day. Rest of the medications unchanged. On 07/01/2023, the patient is being seen for a follow-up. Unfortunately, she still having episodes of lethargy and increased sleepiness and diminished level of consciousness. Earlier this morning she was fine and subsequently she became more lethargic. I suspect that the patient is having some episodes of hypercapnic respiratory failure. She is on enough being placed on a BiPAP. She remains on the same treatment for now. She is on DuoNeb updrafts and IV Solu- Medrol 40 mg every 24-hour speech is also on oral Lasix 40 mg twice a day. A repeat chest x-ray was done and the chest x-ray findings are showing carotid negative pulmonary vessel congestion. There is moderate right and small left- sided pleural effusion. She has significant kyphoscoliosis of the chest. Labs from today shows improvement of the scope 9.4, he was sent 0.9, sodium levels of 142, potassium is at 5, BUN is at 96 with creatinine of 2.4. UA is negative. Troponins of 0.06. On 07/02/2023, the patient is sitting up on a chair and she is wearing the BiPAP. She is stable. She is communicating. She is arousable. She has an acute kidney injury on top of her chronic kidney disease. 11 function slightly worse compared to yesterday. On today's blood work, the sodium level is at 142, BUN is at 102 with a creatinine of 2.6. Potassium levels at 5.0. UA negative. The patient remains on bronchodilators. The patient remains on IV Solu-Medrol. She is also on Lasix 40 mg by mouth twice a day. Nephrology is on the case. Objective - Vital Signs Vital signs: Vital Signs Temp 98.1 F 07/02/23 08:00 Pulse 73 07/02/23 11:57 Resp 20 07/02/23 08:00 BP 128/77 07/02/23 08:00 Pulse Ox 94 L 07/02/23 09:12 FiO2 40 07/02/23 02:30 Intake & Output 07/01/23 07/02/23 07/02/23 18:59 06:59 18:59 Weight 84.8 kg Other: # Voids 1 3 - Labs CBC & Chem 7: 07/01/23 07:24 07/02/23 04:49 Labs: Abnormal Lab Results - Last 24 Hours (Table) 07/01/23 07/02/23 Range/Units 07:40 04:49 Chloride 94 L (96-109) mmol/L Carbon Dioxide 36.4 H (21.6-31.8) mmol/L BUN 102.0 A* (9.0-27.0) mg/dL Creatinine 2.6 H (0.6-1.5) mg/dL Est GFR (CKD-EPI) 18 L (>=60) BUN/Creatinine Ratio 39.23 H (12.00-20.00) Ratio Glucose 141 H (70-110) mg/dL Magnesium 3.1 H (1.5-2.4) mg/dL Urine Protein Trace H (Negative) Assessment and Plan Assessment: Acute on chronic hypoxemic respiratory failure, secondary to a combination of exacerbation of systolic congestive heart failure/biventricular heart failure as the patient has LV dysfunction with an ejection fraction of 35% addition to valvular insufficiency involving the mitral and aortic valve and severe tricuspid regurgitation with severe pulmonary hypertension. The RV is also severely dilated. Patient also has a component of acute COPD exacerbation. Chest x-ray on arrival showed cardiomegaly with bilateral pleural effusions right greater than left with likely compressive atelectasis, however, underlying infectious process could not be ruled out on today's blood gas, the patient is showing signs of acute on top of chronic hypercapnic respiratory failure. The patient was placed back on a BiPAP at a pressure of 10/5 cm of water. Severe oxygen dependent COPD, and the patient has chronic hypoxic respiratory failure normally on 3 L Chronic hypoxemic respiratory failure, normally maintained on 3 L/m nasal cannula secondary to above Severe pulmonary hypertension Acute on top of chronic kidney disease stage IV, patient is currently on diuretics with Lasix, no function slightly worse compared to yesterday monitor renal function remains unchanged Anemia of chronic disease Paroxysmal atrial fibrillation, anticoagulated on Eliquis Chronically elevated troponins History of permanent pacemaker implantation, currently ventricularly paced Remote history of breast cancer, with previous lumpectomy and radiation Nonocclusive coronary artery disease Previous history of atrial fibrillation 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 Chest x-rays noted and the patient has significant kyphoscoliosis and restrictive lung disease in addition to cardiomegaly and small bilateral pleural effusions Continue bronchodilators and IV Solu-Medrol reviewed the echocardiogram and the patient has biventricular failure Continue bronchodilators Continue anticoagulation with Eliquis Monitor renal function Titrate FiO2 to maintain a saturation above 90% findings on the case and monitor renal function. Ultrasound the kidneys are showing no evidence of any hydronephrosis We'll continue to follow. Prognosis poor based above-mentioned comorbidities.
[2023-07-02] MEDS: LORATADINE 10 MG TAB PO SCH (21:20)
[2023-07-02] MEDS: MONTELUKAST 10 MG TAB PO SCH (21:21)
[2023-07-02] MEDS: METOPROLOL SUCCINATE (ER) 25 MG TAB.ER.24H PO SCH (21:21)
--- NOTE | 2023-07-03 05:44 | P.PN ---
Subjective 78-year-old patient with past medical history significant for congestive heart failure, chronic kidney disease, history of a defibrillation status post pacemaker in place, previous history of breast cancer status post lumpectomy and radiation, COPD on home oxygen, presented to the emergency department with complaints of progressive shortness of breath. At baseline patient weighs 3 L of oxygen, however patient has been having more exertional shortness of breath as well as chest pain. This was associated with nonproductive cough, patient denies associated fever, chills, nausea, vomiting with 6 contact. states her symptoms started 1 week ago around when she went up with the family. Patient states she had her Lasix during that time and started to feel short of breath since then. She has noticed increased swelling and lower extremity as well Workup initiated in ER included a chest x-ray which showed bilateral pleural effusions as well as cardiomegaly. Workup in ER included CBC which were WBC count of 6.5 hemoglobin 10.6 platelet 190, serum chemistry shows sodium 145 potassium 4.5 chloride 98 , serum bicarbonate 39 BU and 40 creatinine 1.77. Patient had elevated troponin which remained flat in ED, N-terminal proBNP was noted to be 19,700, EKG obtained in ER showed paced rhythm Patient to be admitted to medical floor with consultation from pulmonary medicine and cardiology 06/27/2023: Patient seen and evaluated bedside patient seen in ER room 1, waiting for bed, continue patient on diuresis the patient input from pulmonary medicine, blood work reviewed, serum chemistry reviewed creatinine 2.09. N- terminal proBNP 19447 06/28/2023: Patient seen and evaluated bedside, patient in room 485, patient does complain of shortness of breath, follow-up chest x-ray obtained shows slight improvement in pulmonary vascular congestion was on 6 L of oxygen weaned down to 4 L. Appreciate input from cardiology, WBC within normal limits, serum chemistry and renal function reviewed, creatinine 2.2 N-terminal proBNP 96252. Pro-calcitonin was negative. Once kidney function improved patient will benefit from ELLEN 06/29/2023: Patient seen and evaluated bedside, patient does complain of shortness of breath however she states her breathing has improved, continue patient on Lasix, blood work reviewed, potassium 5.9, Patient patient to be given insulin, dextrose, calcium gluconate and sodium bicarbonate. Continue patient on Lasix, oral potassium supplementation discontinued 06/30/2023: Patient seen and evaluated bedside, patient does complain of shortness of breath, blood work reviewed, potassium 5.5, lokelma given, follow- up on potassium levels. Renal function creatinine 2.4, nephrology following. Continue patient on Lasix transitioned from IV to oral. IV Solu-Medrol weaned down to daily as well 07/01/2023 Patient is still complaining from shortness of breath She is requiring BiPAP at night Currently she is on 4 L oxygen, at home she is on 3 L/m She still have bilateral congestion in the right pleural effusion of the chest x-ray Continued on oral Lasix 40 mg twice daily and Zaroxolyn 1 dose was given today Also she is on IV Solu-Medrol 40 mg once daily with pulmonary team following him closely On liquids for her chronic A. fib 07/02/2023 patient is breathing is somewhat controlled with episodes of worsening requiring BiPAP, currently she is on 3 L which is a much her home dose She still slightly confused and drowsy related to her metabolic encephalopathy. She is also being treated with oral Lasix and once daily IV Solu-Medrol. Her bladder scan was 440, [place] fax added and we will check it again. Her creatinine is slightly worse 2.6, potassium 5 and she got 1 dose of glaucoma. Objective - Vital Signs Vital signs: Vital Signs Temp 97.6 F 07/02/23 14:00 Pulse 75 07/02/23 16:18 Resp 21 07/02/23 14:00 BP 130/75 07/02/23 14:00 Pulse Ox 94 L 07/02/23 14:00 FiO2 40 07/02/23 16:07 Intake & Output 07/02/23 07/02/23 07/03/23 06:59 18:59 06:59 Weight 84.8 kg Other: # Voids 3 1 # Bowel Movements 1 - Exam -GENERAL: The patient is alert and oriented x3, drowsy not in any acute distress. Well developed, well nourished. HEENT: Pupils are round and equally reacting to light. EOMI. No scleral icterus. No conjunctival pallor. Normocephalic, atraumatic. No pharyngeal erythema. No thyromegaly. CARDIOVASCULAR: S1 and S2 present. No murmurs, rubs, or gallops. -PULMONARY: Chest is clear to auscultation, no wheezing , bilateral basal crackles. Mildly tachypneic ABDOMEN: Soft, nontender, nondistended, normoactive bowel sounds. No palpable organomegaly. MUSCULOSKELETAL: No joint swelling or deformity. EXTREMITIES: No cyanosis, clubbing, or pedal edema. NEUROLOGICAL: Gross neurological examination did not reveal any focal deficits. SKIN: No rashes. no petechiae. - Labs CBC & Chem 7: 07/01/23 07:24 07/02/23 04:49 Labs: Abnormal Lab Results - Last 24 Hours (Table) 07/02/23 Range/Units 04:49 Chloride 94 L (96-109) mmol/L Carbon Dioxide 36.4 H (21.6-31.8) mmol/L BUN 102.0 A* (9.0-27.0) mg/dL Creatinine 2.6 H (0.6-1.5) mg/dL Est GFR (CKD-EPI) 18 L (>=60) BUN/Creatinine Ratio 39.23 H (12.00-20.00) Ratio Glucose 141 H (70-110) mg/dL Magnesium 3.1 H (1.5-2.4) mg/dL Assessment and Plan Assessment: Acute on chronic congestive heart failure diastolic dysfunction Acute on chronic hypoxic respiratory failure multifactorial COPD, CHF exacerbation Severe COPD with chronic hypoxia on 3 L of oxygen at baseline Elevated troponin secondary to type II MD hypoxia Transient hyperkalemia Acute kidney injury Chronic kidney disease stage IV Paroxysmal atrial fibrillation on anticoagulation 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 Plan: Continue with Lasix 4 mg twice daily Continue with IV Solu-Medrol Continue with oxygen therapy on BiPAP as needed Several consultants on the case for the cardiology signed off, pulmonary and nephrology Labs and medication were reviewed.. Continue same treatment. Continue with symptomatic treatment. Resume home medication. Monitor labs and vitals. DVT and GI prophylaxis. Further recommendations as per clinical course of the patient DVT prophylaxis: eliquis GI Prophylaxis: Ppi PT/OT: Pending Prognosis is guarded
[2023-07-03] MEDS: PANTOPRAZOLE 40 MG TABLET PO SCH ×2 (06:21→17:38)
[2023-07-03] MEDS: ALBUTEROL NEBULIZED 2.5 MG/3 ML INHALATION SCH ×4 (09:19→20:07)
[2023-07-03] MEDS: SYMBICORT 160-4.5 MCG INHALER INHALATION SCH ×2 (09:19→20:07)
[2023-07-03] MEDS: CHOLECALCIFEROL 25 MCG (1000 IU) TABLET PO SCH (09:34)
[2023-07-03] MEDS: allopurinoL 300 MG TAB PO SCH (09:35)
[2023-07-03] MEDS: TAMSULOSIN 0.4 MG CAP.ER.24H PO SCH (09:35)
[2023-07-03] MEDS: methylPREDNISolone SOD SUCCI 40 MG/ML 1 ML VIAL IV SCH (09:35)
[2023-07-03] MEDS: FERROUS SULFATE 325 MG TAB PO SCH (09:35)
[2023-07-03] MEDS: FUROSEMIDE 40 MG TAB PO SCH ×2 (09:35→17:38)
[2023-07-03] MEDS: APIXABAN 5 MG TAB PO SCH ×2 (09:35→21:46)
[2023-07-03 10:01] LABS: BUN/Creat Ratio 44.78 Ratio (12.00-20.00); Calcium 9.1 mg/dL (8.7-10.3); Carbon Dioxide 39.1 mmol/L (21.6-31.8); Chloride 94 mmol/L (96-109); Glucose 167 mg/dL (70-110); Potassium 4.3 mmol/L (3.5-5.5); Sodium 146 mmol/L (135-145)
--- NOTE | 2023-07-03 11:09 | P.PN ---
Subjective Patient is seen in follow-up for acute kidney injury on chronic kidney disease. Renal function a little improved. Sitting up in chair. Has been voiding. Oral intake fair. No vomiting or diarrhea. Vital signs are stable. General: No acute distress. HEENT: Head exam is unremarkable. On nasal cannula. LUNGS: No audible rhonchi or wheezes. HEART: Rate and Rhythm are regular. ABDOMEN: Nontender. EXTREMITITES: Trace edema. Objective - Vital Signs Vital signs: Vital Signs Temp 97.4 F L 07/03/23 07:25 Pulse 72 07/03/23 09:35 Resp 14 07/03/23 07:25 BP 117/80 07/03/23 07:25 Pulse Ox 93 L 07/03/23 07:25 FiO2 40 07/03/23 05:16 Intake & Output 07/02/23 07/03/23 07/03/23 18:59 06:59 18:59 Weight 84 kg Other: # Voids 1 1 # Bowel Movements 1 - Labs CBC & Chem 7: 07/01/23 07:24 07/03/23 04:49 Labs: Abnormal Lab Results - Last 24 Hours (Table) 07/03/23 Range/Units 04:49 Sodium 146 H (135-145) mmol/L Chloride 94 L (96-109) mmol/L Carbon Dioxide 39.1 H (21.6-31.8) mmol/L Anion Gap 12.90 H (4.00-12.00) mmol/L BUN 103.0 A* (9.0-27.0) mg/dL Creatinine 2.3 H (0.6-1.5) mg/dL Est GFR (CKD-EPI) 21 L (>=60) BUN/Creatinine Ratio 44.78 H (12.00-20.00) Ratio Glucose 167 H (70-110) mg/dL Magnesium 3.0 H (1.5-2.4) mg/dL Assessment and Plan Plan: Assessment: 1. Acute kidney injury secondary to ATN secondary to cardiorenal syndrome. No hydronephrosis noted on renal ultrasound. Right kidney atrophic. UA fairly benign. Renal function worse from diuresis - little better today. Creatinine 2.3. Elevated BUN partially due to steroids. 2. Chronic kidney disease stage IIIB with baseline creatinine 1.5-1.8. Suspect nephrosclerosis. 3. Acute on chronic systolic CHF with ejection fraction of 35-40% with moderate mitral regurgitation, mild to moderate aortic insufficiency and severe tricuspid regurgitation and pulmonary hypertension. 4. Acute hypoxic respiratory failure. 5. Volume overload. 6. Mild hypernatremia from lack of oral water intake. Plan: Maintain Lasix. Encourage oral intake, including free water. Remove fluid restriction for now. Status post 1 dose of metolazone given 07/01/2023. Avoid nephrotoxins. Low-salt diet and 1500 mL fluid restriction. Continue to monitor renal function and urine output. Repeat labs in the morning. Repeat chest x-ray as well.
--- NOTE | 2023-07-03 12:56 | XR ---
EXAMINATION TYPE: XR chest 1V DATE OF EXAM: 07/03/2023 COMPARISON: 07/01/2023 INDICATION: Short of breath TECHNIQUE: Single frontal view of the chest is obtained. FINDINGS: The heart size is very prominent. The pulmonary vasculature is normal. Mild infiltrates present in the mid and lower lung chong greater on the right. Small right pleural e ffusion may be present. Minimal left pleural effusion may be present. Findings appear similar to comp arison. Pacemaker overlies the left chest. IMPRESSION: 1. Bibasilar infiltrates with small pleural effusions and cardiomegaly, stable from comparison
--- NOTE | 2023-07-03 14:21 | P.PN ---
Subjective Progress Note Date: 07/03/23 I am seeing this patient in new consultation today 06/26/2023 in the emergency room as she has progressively become more short of breath over the last couple weeks. Patient is a 78-year-old white female with past medical history significant for oxygen dependent COPD, CHF, chronic kidney disease, atrial fibrillation, permanent pacemaker, breast cancer with previous lumpectomy and radiation , among other things. She follows with a Dr. Ocampo, in [place], and has moved to the area within the last year. Patient states that she's had progressively worsening shortness of breath over the last couple weeks. She is normally oxygen dependent on 3 L/m nasal cannula. Her shortness of breath is mostly exertional. It's accompanied with chest tightness. She's had a dry nonproductive cough. Denies any fevers. Denies sick contacts. She also states that over weekend, she went to [place] with her family, and did not want to take her Lasix. She held her Lasix on her own from to Monday. Her breathing did get worse. She also admits increased lower extremity swelling. Patient is currently sitting up in bed, on 3 L/m nasal cannula, in no acute distress. Chest x-ray on arrival showed cardiomegaly with bilateral pleural effusions right greater than left and likely bibasilar compressive atelectasis, underlying infectious process could not be ruled out. Most recent echocardiogram from October of this year shows borderline LV systolic function with an EF of 50%. Severe pulmonary hypertension with a RVSP of 67 mmHg, severe right ventricular dilation and moderate tricuspid regurgitation. CBC on arrival showed a WBC count of 6.5, hemoglobin 10.6, hematocrit 35.4, platelets 190. BMP on arrival shows sodium 145, potassium 4.4, chloride 98, serum bicarb 39, BUN 40, creatinine 1.77, glucose 124. Troponins were elevated but flat. NT proBNP was significantly elevated 19,700. ECG on arrival showed a ventricular paced rhythm. Hemodynamically stable. today's evaluation of 06/27/2023, the patient is still having difficulty breathing. She remains on oxygen 5 L/m nasal cannula. Repeat chest x-ray was doneand it showed cardiomegaly and stable perihilar and bibasilar interstitial markings along with small bilateral pleural effusion consistent with CHF. Echocardiogram was done yesterday and the patient was found to have a left insular ejection fraction of 35-40% with moderate MR, [id number] aortic regurgitation, severe tricuspid regurgitation and severe pulmonary hypertension. Labs from today are still pending. Creatinine was elevated at 1.77. Her pr oBNP level was 19,700 and the patient also had troponin levels of 0.06 and 0.05 and 0.06 respectively. The viral screen was negative including Covid 19. She is on Symbicort. She is on DuoNeb [facility]. She is on IV Solu-Medrol 60 mg every 6 hours. She is on Lasix 40 mg every 12 hours. She is also on anticoagulation with Eliquis. The fluid balance has not been accurately measured. She seems to be in a negative fluid balance for now. On 06/28/2023, the patient is being seen for a follow-up. Still having increased shortness of breath and he she continues to be on oxygen 5 L/m nasal cannula. She is bronchospastic and wheezy. She remains on bronchodilators. She remains on steroids. She is also on diuretics and the patient is on Lasix 40 mg IV every 12 hours. No major improvement since yesterday. She has COPD and biventricular heart failure. Labs show a BUN of 59 with a creatinine of 2.2. Sodium level is at 145, bili cigars at 9 with a hemoglobin of 9.9. The fluid balance has been negative. Echo measurements of the input output has not been established. She remains on anticoagulation with Eliquis 5 mg by mouth twice a day. Rest of the home medications have been resumed. On today's evaluation of , the patient is feeling better. She is short of breath. She remains on a combination of bronchodilators, steroids, and diuretics and the patient remains on Lasix 40 mg by mouth twice a day. She remains on IV Solu-Medrol 60 g every 6 hours. She is on 4 L of oxygen nasal cannula with a pulse ox of 90%. She is able to sit up on a chair. Her white cell count is at 8.7 with a hemoglobin of 10.5 and a platelet count of 1. There is a component of an acute kidney injury. BUN is at 70 with a creatinine of 2.5 and the patient was taken off the IV Lasix and switch to oral Lasix. Sodium is at 142 and a potassium level is at 5.9. No other significant events overnight. No altered mentation. No chest pain. Remains on anticoagulation with Eliquis 5 mg by mouth twice a day. On today's evaluation of 06/30/2023, the patient is being seen for a follow-up. The patient continues to struggle with her breathing. Earlier today, the patient was noted to be more somnolent and sleepy. Based on that, a blood gas was done and the patient was found to have a pH of 7.26 and the P CO2 of 87 and pO2 of 61. Based on that, the patient was placed on a BiPAP at a pressure of 10/5 cm of water. The patient continues to diurese. Creatinine is up to 2.4 with a BUN of 79. The findings of the case. Sodium is at 142. Ultrasound of the kidneys were done and there is chronic mild medical renal disease. No solid kidney masses. No evidence of hydronephrosis. No kidney stones. The patient continues to be on DuoNeb neb blotchiness on the clock. The patient is also on Symbicort. The patient is receiving IV Solu-Medrol 40 mg on a daily basis. In terms of diuresis, the patient is on oral Lasix 40 mg by mouth twice a day. Rest of the medications unchanged. On 07/01/2023, the patient is being seen for a follow-up. Unfortunately, she still having episodes of lethargy and increased sleepiness and diminished level of consciousness. Earlier this morning she was fine and subsequently she became more lethargic. I suspect that the patient is having some episodes of hypercapnic respiratory failure. She is on enough being placed on a BiPAP. She remains on the same treatment for now. She is on DuoNeb updrafts and IV Solu- Medrol 40 mg every 24-hour speech is also on oral Lasix 40 mg twice a day. A repeat chest x-ray was done and the chest x-ray findings are showing carotid negative pulmonary vessel congestion. There is moderate right and small left- sided pleural effusion. She has significant kyphoscoliosis of the chest. Labs from today shows improvement of the scope 9.4, he was sent 0.9, sodium levels of 142, potassium is at 5, BUN is at 96 with creatinine of 2.4. UA is negative. Troponins of 0.06. On 07/02/2023, the patient is sitting up on a chair and she is wearing the BiPAP. She is stable. She is communicating. She is arousable. She has an acute kidney injury on top of her chronic kidney disease. 11 function slightly worse compared to yesterday. On today's blood work, the sodium level is at 142, BUN is at 102 with a creatinine of 2.6. Potassium levels at 5.0. UA negative. The patient remains on bronchodilators. The patient remains on IV Solu-Medrol. She is also on Lasix 40 mg by mouth twice a day. Nephrology is on the case. The patient is seen today 07/03/2023 in follow-up on the regular medical floor. She is currently sitting up in bed. Awake and alert in no acute distress. She is currently maintaining O2 saturations in the 90s on 3 L/m per nasal cannula. She is alternating with BiPAP 12/5 and 40% FiO2. Sodium 146. Potassium 4.3. Bicarb 39. BUN 103. Creatinine 2.3. Glucose 167. Chest x-ray reveals stable bibasilar infiltrates with small effusions and cardiomegaly. She is continued on Symbicort and albuterol. Remains on IV Solu-Medrol. Remains on oral diuretics. Anticoagulated with Eliquis. Objective - Vital Signs Vital signs: Vital Signs Temp 98.6 F 07/03/23 13:39 Pulse 72 07/03/23 13:39 Resp 18 07/03/23 13:39 BP 101/67 07/03/23 13:39 Pulse Ox 90 L 07/03/23 13:39 FiO2 40 07/03/23 05:16 Intake & Output 07/02/23 07/03/23 07/03/23 18:59 06:59 18:59 Weight 84 kg Other: # Voids 1 1 # Bowel Movements 1 - Exam GENERAL EXAM: Alert, pleasant 78-year-old female, on 3 L nasal cannula, comfortable in no apparent distress. HEAD: Normocephalic. EYES: Normal reaction of pupils, equal size. NOSE: Clear with pink turbinates. THROAT: No erythema or exudates. NECK: No masses, no JVD. CHEST: No chest wall deformity. LUNGS: Equal air entry with crackles in the bilateral bases. CVS: S1 and S2 normal with no audible murmur, regular rhythm. ABDOMEN: No hepatosplenomegaly, normal bowel sounds, no guarding or rigidity. SPINE: No scoliosis or deformity SKIN: No rashes CENTRAL NERVOUS SYSTEM: No focal deficits, tone is normal in all 4 extremities. EXTREMITIES: There is no peripheral edema. No clubbing, no cyanosis. Periphera l pulses are intact. - Labs CBC & Chem 7: 07/01/23 07:24 07/03/23 04:49 Labs: Abnormal Lab Results - Last 24 Hours (Table) 07/03/23 Range/Units 04:49 Sodium 146 H (135-145) mmol/L Chloride 94 L (96-109) mmol/L Carbon Dioxide 39.1 H (21.6-31.8) mmol/L Anion Gap 12.90 H (4.00-12.00) mmol/L BUN 103.0 A* (9.0-27.0) mg/dL Creatinine 2.3 H (0.6-1.5) mg/dL Est GFR (CKD-EPI) 21 L (>=60) BUN/Creatinine Ratio 44.78 H (12.00-20.00) Ratio Glucose 167 H (70-110) mg/dL Magnesium 3.0 H (1.5-2.4) mg/dL Assessment and Plan Assessment: Acute on chronic hypoxemic respiratory failure, secondary to a combination of exacerbation of systolic congestive heart failure/biventricular heart failure as the patient has LV dysfunction with an ejection fraction of 35% addition to valvular insufficiency involving the mitral and aortic valve and severe tricuspid regurgitation with severe pulmonary hypertension. The RV is also severely dilated. Patient also has a component of acute COPD exacerbation. Chest x-ray on arrival showed cardiomegaly with bilateral pleural effusions. Alternating 3 L nasal cannula with BiPAP support 06/27 on 40% FiO2 Severe oxygen dependent COPD, and the patient has chronic hypoxic respiratory failure normally on 3 L Chronic hypoxemic respiratory failure secondary to above Severe pulmonary hypertension Acute on top of chronic kidney disease stage IV, patient is currently on diuretics with Lasix Anemia of chronic disease Paroxysmal atrial fibrillation, anticoagulated on Eliquis Chronically elevated troponins History of permanent pacemaker implantation, currently ventricularly paced Remote history of breast cancer, with previous lumpectomy and radiation Nonocclusive coronary artery disease Previous history of atrial fibrillation Plan: The patient was seen and evaluated Chest x-ray, labs and medications reviewed Need on bronchodilators, steroids Continued on diuretics Anticoagulated with Eliquis Titrate the FiO2 as tolerated We will continue to follow I have personally seen and examined the patient, performed the documentation and the assessment and plan as written. Number of minutes spent on the visit: 10.
[2023-07-03 17:47] LABS: ABG Base Excess 15.2 mmol/L; ABG Oxygen Saturation 90.1 % (94-97); ABG PH 7.32 (7.35-7.45); ABG PO2 60 mmHg (83-108); ABG TCO2 44 mmol/L (19-24); Allen Test Performed? Yes
[2023-07-03 17:53] LABS: ABG PCO2 80 mmHg (35-45)
[2023-07-03 17:54] LABS: ABG HCO3 41 mmol/L (21-25)
[2023-07-03 21:14] LABS: Glucose,Whole Blood 278 mg/dL (70-110)
[2023-07-03] MEDS: METOPROLOL SUCCINATE (ER) 25 MG TAB.ER.24H PO SCH (21:46)
[2023-07-03] MEDS: MONTELUKAST 10 MG TAB PO SCH (21:46)
[2023-07-03] MEDS: LORATADINE 10 MG TAB PO SCH (21:46)
--- NOTE | 2023-07-04 03:13 | P.PN ---
Subjective 78-year-old patient with past medical history significant for congestive heart failure, chronic kidney disease, history of a defibrillation status post pacemaker in place, previous history of breast cancer status post lumpectomy and radiation, COPD on home oxygen, presented to the emergency department with complaints of progressive shortness of breath. At baseline patient weighs 3 L of oxygen, however patient has been having more exertional shortness of breath as well as chest pain. This was associated with nonproductive cough, patient denies associated fever, chills, nausea, vomiting with 6 contact. states her symptoms started 1 week ago around when she went up with the family. Patient states she had her Lasix during that time and started to feel short of breath since then. She has noticed increased swelling and lower extremity as well Workup initiated in ER included a chest x-ray which showed bilateral pleural effusions as well as cardiomegaly. Workup in ER included CBC which were WBC count of 6.5 hemoglobin 10.6 platelet 190, serum chemistry shows sodium 145 potassium 4.5 chloride 98 , serum bicarbonate 39 BU and 40 creatinine 1.77. Patient had elevated troponin which remained flat in ED, N-terminal proBNP was noted to be 19,700, EKG obtained in ER showed paced rhythm Patient to be admitted to medical floor with consultation from pulmonary medicine and cardiology 06/27/2023: Patient seen and evaluated bedside patient seen in ER room 1, waiting for bed, continue patient on diuresis the patient input from pulmonary medicine, blood work reviewed, serum chemistry reviewed creatinine 2.09. N- terminal proBNP [id number] 06/28/2023: Patient seen and evaluated bedside, patient in room 485, patient does complain of shortness of breath, follow-up chest x-ray obtained shows slight improvement in pulmonary vascular congestion was on 6 L of oxygen weaned down to 4 L. Appreciate input from cardiology, WBC within normal limits, serum chemistry and renal function reviewed, creatinine 2.2 N-terminal proBNP [id number]. Pro-calcitonin was negative. Once kidney function improved patient will benefit from ELLEN 06/29/2023: Patient seen and evaluated bedside, patient does complain of shortness of breath however she states her breathing has improved, continue patient on Lasix, blood work reviewed, potassium 5.9, Patient patient to be given insulin, dextrose, calcium gluconate and sodium bicarbonate. Continue patient on Lasix, oral potassium supplementation discontinued 06/30/2023: Patient seen and evaluated bedside, patient does complain of shortness of breath, blood work reviewed, potassium 5.5, lokelma given, follow- up on potassium levels. Renal function creatinine 2.4, nephrology following. Continue patient on Lasix transitioned from IV to oral. IV Solu-Medrol weaned down to daily as well 07/01/2023 Patient is still complaining from shortness of breath She is requiring BiPAP at night Currently she is on 4 L oxygen, at home she is on 3 L/m She still have bilateral congestion in the right pleural effusion of the chest x-ray Continued on oral Lasix 40 mg twice daily and Zaroxolyn 1 dose was given today Also she is on IV Solu-Medrol 40 mg once daily with pulmonary team following him closely On liquids for her chronic A. fib 07/02/2023 patient is breathing is somewhat controlled with episodes of worsening requiring BiPAP, currently she is on 3 L which is a much her home dose She still slightly confused and drowsy related to her metabolic encephalopathy. She is also being treated with oral Lasix and once daily IV Solu-Medrol. Her bladder scan was 440, [place] fax added and we will check it again. Her creatinine is slightly worse 2.6, potassium 5 and she got 1 dose of glaucoma. 07/03/2023 Patient is more drowsy, breathing is somewhat labored, she was on a 3 L oxygen but also she is using BiPAP at night and more frequently She has worsening infiltrate on the chest x-ray with cardiomegaly on today imaging compared to yesterday, also her ABG showing evidence with CO2 retention and acute hypoxic hypercapnic respiratory failure therefore patient was transferred to telemetry floor for higher level of care She has evidence of urinary retention with bladder scan for 40 therefore Flomax was added. She remains on her home dose of Eliquis 5 mg, Solu-Medrol 40 mg. Also she is on oral Lasix 40 mg twice daily Case was discussed in details with nephrology team as well as with the staff Review of systems: Patient could not participate because of her condition Active Medications Generic Name Dose Route Start Last Admin Trade Name Freq PRN Reason Stop Dose Admin Acetaminophen 650 mg 06/27/23 10:36 06/30/23 05:33 Acetaminophen Tab 325 Mg Tab PO 650 mg Q6HR PRN Administration Fever and/ or Pain Albuterol Sulfate 2.5 mg 06/26/23 08:00 07/03/23 20:07 Albuterol Nebulized 2.5 Mg/3 Ml INHALATION 2.5 mg RT-QID OANH Administration Albuterol/Ipratropium 3 ml 06/26/23 01:50 06/29/23 21:45 Ipratropium-Albuterol 3 Ml Neb INHALATION 3 ml RT-QID PRN Administration Shortness Of Breath Allopurinol 150 mg 06/26/23 09:00 07/03/23 09:35 Allopurinol 300 Mg Tab PO 150 mg DAILY OANH Administration Apixaban 5 mg 06/26/23 09:00 07/03/23 21:46 Apixaban 5 Mg Tab PO 5 mg BID OANH Administration Protocol Budesonide/Formoterol Fumarate 2 puff 06/26/23 08:00 07/03/23 20:07 Symbicort 160-4.5 Mcg Inhaler INHALATION Not Given RT-BID OANH Cholecalciferol 75 mcg 06/26/23 09:00 07/03/23 09:34 Cholecalciferol 25 Mcg (1000 Iu) Tablet PO 75 mcg DAILY OANH Administration Colchicine 0.6 mg 06/27/23 09:00 06/29/23 09:03 Colchicine 0.6 Mg Each PO 0.6 mg [facility] OANH Administration Ferrous Sulfate 325 mg 06/26/23 09:00 07/03/23 09:35 Ferrous Sulfate 325 Mg Tab PO 325 mg DAILY OANH Administration Furosemide 40 mg 06/29/23 16:00 07/03/23 17:38 Furosemide 40 Mg Tab PO 40 mg BID@0900,1600 OANH Administration Loratadine 10 mg 06/26/23 21:00 07/03/23 21:46 Loratadine 10 Mg Tab PO 10 mg HS OANH Administration Methylprednisolone Sodium Succinate 40 mg 07/01/23 09:00 07/03/23 09:35 Methylprednisolone Sod Succi 40 Mg/Ml 1 Ml Vial IV 40 mg DAILY OANH Administration Metoprolol Succinate 75 mg 06/26/23 21:00 07/03/23 21:46 Metoprolol Succinate (Er) 25 Mg Tab.Er.24h PO 75 mg HS OANH Administration Montelukast Sodium 10 mg 06/26/23 21:00 07/03/23 21:46 Montelukast 10 Mg Tab PO 10 mg HS OANH Administration Morphine Sulfate 4 mg 06/26/23 00:26 07/01/23 03:07 Morphine Sulfate 4 Mg/Ml Syringe IV 4 mg Q4HR PRN Administration Severe Pain (Scale 7 to 10) Naloxone HCl 0.2 mg 06/26/23 00:26 Naloxone 0.4 Mg/Ml 1 Ml Vial IV Q2M PRN Opioid Reversal Ondansetron HCl 4 mg 06/26/23 00:26 Ondansetron 4 Mg/2 Ml Vial IVP Q8HR PRN Nausea And Vomiting Pantoprazole Sodium 40 mg 06/26/23 07:30 07/03/23 17:38 Pantoprazole 40 Mg Tablet PO 40 mg AC-BID OANH Administration Tamsulosin HCl 0.4 mg 07/03/23 08:30 07/03/23 09:35 Tamsulosin 0.4 Mg Cap.Er.24h PO 0.4 mg [id number] OANH Administration Objective - Vital Signs Vital signs: Vital Signs Temp 98.6 F 07/03/23 13:39 Pulse 72 07/03/23 13:39 Resp 18 07/03/23 13:39 BP 101/67 07/03/23 13:39 Pulse Ox 90 L 07/03/23 13:39 FiO2 40 07/03/23 05:16 Intake & Output 07/02/23 07/03/23 07/03/23 18:59 06:59 18:59 Weight 84 kg Other: Voiding Method Bedside Commode # Voids 1 1 # Bowel Movements 1 - Exam -GENERAL: The patient is alert and oriented x3, drowsy not in any acute distress. Well developed, well nourished. HEENT: Pupils are round and equally reacting to light. EOMI. No scleral icterus. No conjunctival pallor. Normocephalic, atraumatic. No pharyngeal erythema. No thyromegaly. CARDIOVASCULAR: S1 and S2 present. No murmurs, rubs, or gallops. -PULMONARY: Chest is clear to auscultation, no wheezing , bilateral basal mercury cracking tester ckles. Mildly tachypneic ABDOMEN: Soft, nontender, nondistended, normoactive bowel sounds. No palpable organomegaly. MUSCULOSKELETAL: No joint swelling or deformity. EXTREMITIES: No cyanosis, clubbing, or pedal edema. NEUROLOGICAL: Gross neurological examination did not reveal any focal deficits. SKIN: No rashes. no petechiae. - Labs CBC & Chem 7: 07/01/23 07:24 07/03/23 04:49 Labs: Abnormal Lab Results - Last 24 Hours (Table) 07/03/23 Range/Units 04:49 Sodium 146 H (135-145) mmol/L Chloride 94 L (96-109) mmol/L Carbon Dioxide 39.1 H (21.6-31.8) mmol/L Anion Gap 12.90 H (4.00-12.00) mmol/L BUN 103.0 A* (9.0-27.0) mg/dL Creatinine 2.3 H (0.6-1.5) mg/dL Est GFR (CKD-EPI) 21 L (>=60) BUN/Creatinine Ratio 44.78 H (12.00-20.00) Ratio Glucose 167 H (70-110) mg/dL Magnesium 3.0 H (1.5-2.4) mg/dL Assessment and Plan Assessment: Acute on chronic congestive heart failure diastolic dysfunction Acute on chronic hypoxic respiratory failure multifactorial COPD, CHF exacerbation Severe COPD with chronic hypoxia on 3 L of oxygen at baseline Acute urinary retention Elevated troponin secondary to type II DC hypoxia Transient hyperkalemia Acute kidney injury Chronic kidney disease stage IV Paroxysmal atrial fibrillation on anticoagulation 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 Plan: Continue with Lasix 40 mg twice daily to receive orally Continue with IV Solu-Medrol Continue with oxygen therapy on BiPAP as needed Add the Flomax Several consultants on the case for the cardiology signed off, pulmonary and nephrology Labs and medication were reviewed.. Continue same treatment. Continue with symptomatic treatment. Resume home medication. Monitor labs and vitals. DVT and GI prophylaxis. Further recommendations as per clinical course of the patient DVT prophylaxis: eliquis GI Prophylaxis: Ppi PT/OT: Pending Prognosis is guarded
[2023-07-04 06:22] LABS: Glucose,Whole Blood 177 mg/dL (70-110)
[2023-07-04] MEDS: SYMBICORT 160-4.5 MCG INHALER INHALATION SCH ×2 (07:35→21:43)
[2023-07-04] MEDS: ALBUTEROL NEBULIZED 2.5 MG/3 ML INHALATION SCH ×4 (07:35→21:43)
[2023-07-04] MEDS: APIXABAN 5 MG TAB PO SCH ×2 (08:44→20:37)
[2023-07-04] MEDS: FERROUS SULFATE 325 MG TAB PO SCH (08:44)
[2023-07-04] MEDS: TAMSULOSIN 0.4 MG CAP.ER.24H PO SCH (08:45)
[2023-07-04] MEDS: CHOLECALCIFEROL 25 MCG (1000 IU) TABLET PO SCH (08:45)
[2023-07-04] MEDS: PANTOPRAZOLE 40 MG TABLET PO SCH ×2 (08:45→17:24)
[2023-07-04] MEDS: FUROSEMIDE 40 MG TAB PO SCH (08:45)
[2023-07-04] MEDS: allopurinoL 300 MG TAB PO SCH (08:45)
[2023-07-04] MEDS: methylPREDNISolone SOD SUCCI 40 MG/ML 1 ML VIAL IV SCH (08:46)
[2023-07-04] MEDS: COLCHICINE 0.6 MG EACH PO SCH (08:47)
[2023-07-04 09:50] LABS: Anisocytosis Slight; Basophils % (A) 0 %; Eosinophils % (A) 0 %; HGB 10.5 gm/dL (11.4-16.0); Hypochromasia Marked; Lymphocytes # (A) 0.3 k/uL (1.0-4.8); Lymphocytes % (A) 3 %; MCH 29.6 pg (25.0-35.0); MCHC 30.9 g/dL (31.0-37.0); MCV 95.6 fL (80.0-100.0); Macrocytosis Slight; Mean Platelet Volume 9.4; Monocytes # (A) 0.4 k/uL (0-1.0); Monocytes % (A) 6 %; Neutrophils # (A) 6.8 k/uL (1.3-7.7); Neutrophils % (A) 90 %; Platelet Count 131 k/uL (150-450); RBC 3.56 m/uL (3.80-5.40); RDW 17.3 % (11.5-15.5); WBC 7.6 k/uL (3.8-10.6)
[2023-07-04 10:05] LABS: ALT 29 U/L (4-34); AST 23 U/L (14-36); African American GFR (CKD) 28 (>60 ml/min/1.73 sqM); Albumin 3.4 g/dL (3.5-5.0); Alkaline Phosphatase 71 U/L (38-126); Bilirubin, Delta 0.4 mg/dL (0.0-0.2); Bilirubin,Unconjugated 1.1 mg/dL (0.0-1.1); Calcium 8.8 mg/dL (8.4-10.2); Chloride 94 mmol/L (98-107); Glucose 135 mg/dL (74-99); Magnesium 2.9 mg/dL (1.6-2.3); Non-African American GFR(CKD) 24 (>60 ml/min/1.73 sqM); Potassium 4.1 mmol/L (3.5-5.1); Sodium 142 mmol/L (137-145); Total Bilirubin 1.5 mg/dL (0.2-1.3)
[2023-07-04 10:11] LABS: NT-Pro-B-Type Natriuretic Pept 28100 pg/mL
[2023-07-04 10:14] LABS: Anion Gap 7 mmol/L
[2023-07-04 10:16] LABS: Carbon Dioxide 41 mmol/L (22-30)
[2023-07-04 10:18] LABS: Blood Urea Nitrogen 119 mg/dL (7-17)
[2023-07-04 11:27] LABS: Glucose,Whole Blood 288 mg/dL (70-110)
--- NOTE | 2023-07-04 11:43 | P.PN ---
Subjective Patient is seen in follow-up for acute kidney injury on chronic kidney disease. Renal function is improved. Resting in bed. On BiPAP. Daughter present at bedside. Has been voiding. Oral intake fair. No vomiting or diarrhea. Vital signs are stable. General: No acute distress. HEENT: Head exam is unremarkable. On BiPAP. LUNGS: No audible rhonchi or wheezes. HEART: Rate and Rhythm are regular. ABDOMEN: Nontender. EXTREMITITES: Trace edema. Objective - Vital Signs Vital signs: Vital Signs Temp 98.0 F 07/04/23 08:39 Pulse 68 07/04/23 08:39 Resp 19 07/04/23 08:39 BP 135/75 07/04/23 08:39 Pulse Ox 94 L 07/04/23 08:39 FiO2 40 07/04/23 08:39 Intake & Output 07/03/23 07/04/23 07/04/23 18:59 06:59 18:59 Intake Total 0 Balance 0 Weight 84 kg Intake: Oral 0 Other: Voiding Method Bedside Commode Bedside Commode # Voids 3 # Bowel Movements 1 - Labs CBC & Chem 7: 07/04/23 08:38 07/04/23 08:38 Labs: Abnormal Lab Results - Last 24 Hours (Table) 07/03/23 07/03/23 07/04/23 Range/Units 17:40 21:04 06:21 RBC (3.80-5.40) m/uL Hgb (11.4-16.0) gm/dL MCHC (31.0-37.0) g/dL RDW (11.5-15.5) % Plt Count (150-450) k/uL Lymphocytes # (1.0-4.8) k/uL ABG pH 7.32 L (7.35-7.45) ABG pCO2 80 H* (35-45) mmHg ABG pO2 60 L (83-108) mmHg ABG HCO3 41 H* (21-25) mmol/L ABG Total CO2 44 H (19-24) mmol/L ABG O2 Saturation 90.1 L (94-97) % Chloride (98-107) mmol/L Carbon Dioxide (22-30) mmol/L BUN (7-17) mg/dL Creatinine (0.52-1.04) mg/dL Glucose (74-99) mg/dL POC Glucose (mg/dL) 278 H 177 H (70-110) mg/dL Magnesium (1.6-2.3) mg/dL Total Bilirubin (0.2-1.3) mg/dL Delta Bilirubin (0.0-0.2) mg/dL Total Protein (6.3-8.2) g/dL Albumin (3.5-5.0) g/dL 07/04/23 07/04/23 07/04/23 Range/Units 08:38 08:38 11:24 RBC 3.56 L (3.80-5.40) m/uL Hgb 10.5 L (11.4-16.0) gm/dL MCHC 30.9 L (31.0-37.0) g/dL RDW 17.3 H (11.5-15.5) % Plt Count 131 L (150-450) k/uL Lymphocytes # 0.3 L (1.0-4.8) k/uL ABG pH (7.35-7.45) ABG pCO2 (35-45) mmHg ABG pO2 (83-108) mmHg ABG HCO3 (21-25) mmol/L ABG Total CO2 (19-24) mmol/L ABG O2 Saturation (94-97) % Chloride 94 L (98-107) mmol/L Carbon Dioxide 41 H* (22-30) mmol/L BUN 119 H* (7-17) mg/dL Creatinine 1.96 H (0.52-1.04) mg/dL Glucose 135 H (74-99) mg/dL POC Glucose (mg/dL) 288 H (70-110) mg/dL Magnesium 2.9 H (1.6-2.3) mg/dL Total Bilirubin 1.5 H (0.2-1.3) mg/dL Delta Bilirubin 0.4 H (0.0-0.2) mg/dL Total Protein 6.0 L (6.3-8.2) g/dL Albumin 3.4 L (3.5-5.0) g/dL Assessment and Plan Plan: Assessment: 1. Acute kidney injury secondary to ATN secondary to cardiorenal syndrome. No hydronephrosis noted on renal ultrasound. Right kidney atrophic. UA fairly benign. Renal function better - creatinine 1.96 today. Elevated BUN partially due to steroids. 2. Chronic kidney disease stage IIIB with baseline creatinine 1.5-1.8. Suspect nephrosclerosis. 3. Acute on chronic systolic CHF with ejection fraction of 35-40% with moderate mitral regurgitation, mild to moderate aortic insufficiency and severe tricuspid regurgitation and pulmonary hypertension. 4. Acute hypoxic respiratory failure. 5. Volume overload. Improving with diuresis. 6. Mild hypernatremia from lack of oral water intake. Improved. 7. Acute on chronic hypercapnic respiratory failure with metabolic alkalosis. Plan: Hold Lasix. Add Diamox. Encourage oral intake, including free water. Status post 1 dose of metolazone given 07/01/2023. Avoid nephrotoxins. Low-salt diet and 1500 mL fluid restriction. Continue to monitor renal function and urine output. Repeat labs in the morning. Case discussed with patient and her daughter present at bedside. CODE STATUS also discussed. Patient wishes to be full code at this time. Hesitant to do renal replacement therapy if needed. 20 minutes spent.
[2023-07-04] MEDS ORDERED: FUROSEMIDE 10 MG/ML 4 ML VIAL IV STA (11:48)
--- NOTE | 2023-07-04 15:34 | P.PN ---
Subjective Progress Note Date: 07/04/23 I am seeing this patient in new consultation today 06/26/2023 in the emergency room as she has progressively become more short of breath over the last couple weeks. Patient is a 78-year-old white female with past medical history significant for oxygen dependent COPD, CHF, chronic kidney disease, atrial fibrillation, permanent pacemaker, breast cancer with previous lumpectomy and radiation , among other things. She follows with a Dr. Ocampo, in [place], and has moved to the area within the last year. Patient states that she's had progressively worsening shortness of breath over the last couple weeks. She is normally oxygen dependent on 3 L/m nasal cannula. Her shortness of breath is mostly exertional. It's accompanied with chest tightness. She's had a dry nonproductive cough. Denies any fevers. Denies sick contacts. She also states that over weekend, she went to [place] with her family, and did not want to take her Lasix. She held her Lasix on her own from to Monday. Her breathing did get worse. She also admits increased lower extremity swelling. Patient is currently sitting up in bed, on 3 L/m nasal cannula, in no acute distress. Chest x-ray on arrival showed cardiomegaly with bilateral pleural effusions right greater than left and likely bibasilar compressive atelectasis, underlying infectious process could not be ruled out. Most recent echocardiogram from October of this year shows borderline LV systolic function with an EF of 50%. Severe pulmonary hypertension with a RVSP of 67 mmHg, severe right ventricular dilation and moderate tricuspid regurgitation. CBC on arrival showed a WBC count of 6.5, hemoglobin 10.6, hematocrit 35.4, platelets 190. BMP on arrival shows sodium 145, potassium 4.4, chloride 98, serum bicarb 39, BUN 40, creatinine 1.77, glucose 124. Troponins were elevated but flat. NT proBNP was significantly elevated 19,700. ECG on arrival showed a ventricular paced rhythm. Hemodynamically stable. today's evaluation of 06/27/2023, the patient is still having difficulty breathing. She remains on oxygen 5 L/m nasal cannula. Repeat chest x-ray was doneand it showed cardiomegaly and stable perihilar and bibasilar interstitial markings along with small bilateral pleural effusion consistent with CHF. Echocardiogram was done yesterday and the patient was found to have a left insular ejection fraction of 35-40% with moderate MR, [id number] aortic regurgitation, severe tricuspid regurgitation and severe pulmonary hypertension. Labs from today are still pending. Creatinine was elevated at 1.77. Her pr oBNP level was 19,700 and the patient also had troponin levels of 0.06 and 0.05 and 0.06 respectively. The viral screen was negative including Covid 19. She is on Symbicort. She is on DuoNeb [facility]. She is on IV Solu-Medrol 60 mg every 6 hours. She is on Lasix 40 mg every 12 hours. She is also on anticoagulation with Eliquis. The fluid balance has not been accurately measured. She seems to be in a negative fluid balance for now. On 06/28/2023, the patient is being seen for a follow-up. Still having increased shortness of breath and he she continues to be on oxygen 5 L/m nasal cannula. She is bronchospastic and wheezy. She remains on bronchodilators. She remains on steroids. She is also on diuretics and the patient is on Lasix 40 mg IV every 12 hours. No major improvement since yesterday. She has COPD and biventricular heart failure. Labs show a BUN of 59 with a creatinine of 2.2. Sodium level is at 145, bili cigars at 9 with a hemoglobin of 9.9. The fluid balance has been negative. Echo measurements of the input output has not been established. She remains on anticoagulation with Eliquis 5 mg by mouth twice a day. Rest of the home medications have been resumed. On today's evaluation of , the patient is feeling better. She is short of breath. She remains on a combination of bronchodilators, steroids, and diuretics and the patient remains on Lasix 40 mg by mouth twice a day. She remains on IV Solu-Medrol 60 g every 6 hours. She is on 4 L of oxygen nasal cannula with a pulse ox of 90%. She is able to sit up on a chair. Her white cell count is at 8.7 with a hemoglobin of 10.5 and a platelet count of 1. There is a component of an acute kidney injury. BUN is at 70 with a creatinine of 2.5 and the patient was taken off the IV Lasix and switch to oral Lasix. Sodium is at 142 and a potassium level is at 5.9. No other significant events overnight. No altered mentation. No chest pain. Remains on anticoagulation with Eliquis 5 mg by mouth twice a day. On today's evaluation of 06/30/2023, the patient is being seen for a follow-up. The patient continues to struggle with her breathing. Earlier today, the patient was noted to be more somnolent and sleepy. Based on that, a blood gas was done and the patient was found to have a pH of 7.26 and the P CO2 of 87 and pO2 of 61. Based on that, the patient was placed on a BiPAP at a pressure of 10/5 cm of water. The patient continues to diurese. Creatinine is up to 2.4 with a BUN of 79. The findings of the case. Sodium is at 142. Ultrasound of the kidneys were done and there is chronic mild medical renal disease. No solid kidney masses. No evidence of hydronephrosis. No kidney stones. The patient continues to be on DuoNeb neb blotchiness on the clock. The patient is also on Symbicort. The patient is receiving IV Solu-Medrol 40 mg on a daily basis. In terms of diuresis, the patient is on oral Lasix 40 mg by mouth twice a day. Rest of the medications unchanged. On 07/01/2023, the patient is being seen for a follow-up. Unfortunately, she still having episodes of lethargy and increased sleepiness and diminished level of consciousness. Earlier this morning she was fine and subsequently she became more lethargic. I suspect that the patient is having some episodes of hypercapnic respiratory failure. She is on enough being placed on a BiPAP. She remains on the same treatment for now. She is on DuoNeb updrafts and IV Solu- Medrol 40 mg every 24-hour speech is also on oral Lasix 40 mg twice a day. A repeat chest x-ray was done and the chest x-ray findings are showing carotid negative pulmonary vessel congestion. There is moderate right and small left- sided pleural effusion. She has significant kyphoscoliosis of the chest. Labs from today shows improvement of the scope 9.4, he was sent 0.9, sodium levels of 142, potassium is at 5, BUN is at 96 with creatinine of 2.4. UA is negative. Troponins of 0.06. On 07/02/2023, the patient is sitting up on a chair and she is wearing the BiPAP. She is stable. She is communicating. She is arousable. She has an acute kidney injury on top of her chronic kidney disease. 11 function slightly worse compared to yesterday. On today's blood work, the sodium level is at 142, BUN is at 102 with a creatinine of 2.6. Potassium levels at 5.0. UA negative. The patient remains on bronchodilators. The patient remains on IV Solu-Medrol. She is also on Lasix 40 mg by mouth twice a day. Nephrology is on the case. The patient is seen today 07/03/2023 in follow-up on the regular medical floor. She is currently sitting up in bed. Awake and alert in no acute distress. She is currently maintaining O2 saturations in the 90s on 3 L/m per nasal cannula. She is alternating with BiPAP 12/5 and 40% FiO2. Sodium 146. Potassium 4.3. Bicarb 39. BUN 103. Creatinine 2.3. Glucose 167. Chest x-ray reveals stable bibasilar infiltrates with small effusions and cardiomegaly. She is continued on Symbicort and albuterol. Remains on IV Solu-Medrol. Remains on oral diuretics. Anticoagulated with Eliquis. The patient is seen today 07/04/2023 in follow-up on the regular medical floor. She is awake and alert in no acute distress. Resting fairly comfortably in bed. She is more alert today. Talking with her family. She is utilizing the BiPAP 16/5 on 40% FiO2 while resting and at nighttime. She remains afebrile. Hemodynamically stable. Count 7.6. Hemoglobin 10.5. Platelets 131. Sodium 142. Potassium 4.1. Bicarb 41. BUN 118. Creatinine 1.96. Glucose 135. ProBNP 28,100. She's been initiated on Diamox. Continued on DuoNeb inhalations, Symbicort, Solu-Medrol and Singulair. Anticoagulated with Eliquis. Objective - Vital Signs Vital signs: Vital Signs Temp 97.8 F 07/04/23 13:22 Pulse 72 07/04/23 15:18 Resp 19 07/04/23 13:22 BP 110/75 07/04/23 13:22 Pulse Ox 94 L 07/04/23 08:39 FiO2 40 07/04/23 15:05 Intake & Output 07/03/23 07/04/23 07/04/23 18:59 06:59 18:59 Intake Total 0 Output Total 1 Balance -1 Weight 84 kg Intake: Oral 0 Output: Stool 1 Other: Voiding Method Bedside Commode Bedside Commode Bedside Commode # Voids 3 # Bowel Movements 3 - Exam GENERAL EXAM: Alert, 78-year-old female, on BiPAP 16/5 and 40% FiO2, comfortable in no apparent distress. HEAD: Normocephalic. EYES: Normal reaction of pupils, equal size. NOSE: Clear with pink turbinates. THROAT: No erythema or exudates. NECK: No masses, no JVD. CHEST: No chest wall deformity. LUNGS: Equal air entry with crackles in the bilateral bases. CVS: S1 and S2 normal with no audible murmur, regular rhythm. ABDOMEN: No hepatosplenomegaly, normal bowel sounds, no guarding or rigidity. SPINE: No scoliosis or deformity SKIN: No rashes CENTRAL NERVOUS SYSTEM: No focal deficits, tone is normal in all 4 extremities. EXTREMITIES: There is no peripheral edema. No clubbing, no cyanosis. Peripheral pulses are intact. - Labs CBC & Chem 7: 07/04/23 08:38 07/04/23 08:38 Labs: Abnormal Lab Results - Last 24 Hours (Table) 07/03/23 07/03/23 07/04/23 Range/Units 17:40 21:04 06:21 RBC (3.80-5.40) m/uL Hgb (11.4-16.0) gm/dL MCHC (31.0-37.0) g/dL RDW (11.5-15.5) % Plt Count (150-450) k/uL Lymphocytes # (1.0-4.8) k/uL ABG pH 7.32 L (7.35-7.45) ABG pCO2 80 H* (35-45) mmHg ABG pO2 60 L (83-108) mmHg ABG HCO3 41 H* (21-25) mmol/L ABG Total CO2 44 H (19-24) mmol/L ABG O2 Saturation 90.1 L (94-97) % Chloride (98-107) mmol/L Carbon Dioxide (22-30) mmol/L BUN (7-17) mg/dL Creatinine (0.52-1.04) mg/dL Glucose (74-99) mg/dL POC Glucose (mg/dL) 278 H 177 H (70-110) mg/dL Magnesium (1.6-2.3) mg/dL Total Bilirubin (0.2-1.3) mg/dL Delta Bilirubin (0.0-0.2) mg/dL Total Protein (6.3-8.2) g/dL Albumin (3.5-5.0) g/dL 07/04/23 07/04/23 07/04/23 Range/Units 08:38 08:38 11:24 RBC 3.56 L (3.80-5.40) m/uL Hgb 10.5 L (11.4-16.0) gm/dL MCHC 30.9 L (31.0-37.0) g/dL RDW 17.3 H (11.5-15.5) % Plt Count 131 L (150-450) k/uL Lymphocytes # 0.3 L (1.0-4.8) k/uL ABG pH (7.35-7.45) ABG pCO2 (35-45) mmHg ABG pO2 (83-108) mmHg ABG HCO3 (21-25) mmol/L ABG Total CO2 (19-24) mmol/L ABG O2 Saturation (94-97) % Chloride 94 L (98-107) mmol/L Carbon Dioxide 41 H* (22-30) mmol/L BUN 119 H* (7-17) mg/dL Creatinine 1.96 H (0.52-1.04) mg/dL Glucose 135 H (74-99) mg/dL POC Glucose (mg/dL) 288 H (70-110) mg/dL Magnesium 2.9 H (1.6-2.3) mg/dL Total Bilirubin 1.5 H (0.2-1.3) mg/dL Delta Bilirubin 0.4 H (0.0-0.2) mg/dL Total Protein 6.0 L (6.3-8.2) g/dL Albumin 3.4 L (3.5-5.0) g/dL Assessment and Plan Assessment: Acute on chronic hypoxemic respiratory failure, secondary to a combination of exacerbation of systolic congestive heart failure/biventricular heart failure as the patient has LV dysfunction with an ejection fraction of 35% addition to valvular insufficiency involving the mitral and aortic valve and severe tricuspid regurgitation with severe pulmonary hypertension. The RV is also severely dilated. Patient also has a component of acute COPD exacerbation. Chest x-ray on arrival showed cardiomegaly with bilateral pleural effusions. Alternating 3 L nasal cannula with BiPAP support 16/5 on 40% FiO2 Severe oxygen dependent COPD, and the patient has chronic hypoxic respiratory failure normally on 3 L Chronic hypoxemic respiratory failure secondary to above Severe pulmonary hypertension Acute on top of chronic kidney disease stage IV, patient is currently on diuretics with Lasix Anemia of chronic disease Paroxysmal atrial fibrillation, anticoagulated on Eliquis Chronically elevated troponins History of permanent pacemaker implantation, currently ventricularly paced Remote history of breast cancer, with previous lumpectomy and radiation Nonocclusive coronary artery disease Previous history of atrial fibrillation Plan: The patient was seen and evaluated Labs and medications reviewed Remains on bronchodilators, steroids Continued on diamox Titrate the FiO2 as tolerated We will continue to follow I have personally seen and examined the patient, performed the documentation and the assessment and plan as written. Number of minutes spent on the visit: 10.
[2023-07-04 16:40] LABS: Glucose,Whole Blood 271 mg/dL (70-110)
[2023-07-04] MEDS: LORATADINE 10 MG TAB PO SCH (20:37)
[2023-07-04] MEDS: MONTELUKAST 10 MG TAB PO SCH (20:37)
[2023-07-04] MEDS: METOPROLOL SUCCINATE (ER) 25 MG TAB.ER.24H PO SCH (20:37)
[2023-07-04 20:54] LABS: Glucose,Whole Blood 272 mg/dL (70-110)
--- NOTE | 2023-07-05 00:24 | P.PN ---
Subjective 78-year-old patient with past medical history significant for congestive heart failure, chronic kidney disease, history of a defibrillation status post pacemaker in place, previous history of breast cancer status post lumpectomy and radiation, COPD on home oxygen, presented to the emergency department with complaints of progressive shortness of breath. At baseline patient weighs 3 L of oxygen, however patient has been having more exertional shortness of breath as well as chest pain. This was associated with nonproductive cough, patient denies associated fever, chills, nausea, vomiting with 6 contact. states her symptoms started 1 week ago around when she went up with the family. Patient states she had her Lasix during that time and started to feel short of breath since then. She has noticed increased swelling and lower extremity as well Workup initiated in ER included a chest x-ray which showed bilateral pleural effusions as well as cardiomegaly. Workup in ER included CBC which were WBC count of 6.5 hemoglobin 10.6 platelet 190, serum chemistry shows sodium 145 potassium 4.5 chloride 98 , serum bicarbonate 39 BU and 40 creatinine 1.77. Patient had elevated troponin which remained flat in ED, N-terminal proBNP was noted to be 19,700, EKG obtained in ER showed paced rhythm Patient to be admitted to medical floor with consultation from pulmonary medicine and cardiology 06/27/2023: Patient seen and evaluated bedside patient seen in ER room 1, waiting for bed, continue patient on diuresis the patient input from pulmonary medicine, blood work reviewed, serum chemistry reviewed creatinine 2.09. N- terminal proBNP [id number] 06/28/2023: Patient seen and evaluated bedside, patient in room 485, patient does complain of shortness of breath, follow-up chest x-ray obtained shows slight improvement in pulmonary vascular congestion was on 6 L of oxygen weaned down to 4 L. Appreciate input from cardiology, WBC within normal limits, serum chemistry and renal function reviewed, creatinine 2.2 N-terminal proBNP [id number]. Pro-calcitonin was negative. Once kidney function improved patient will benefit from ELLEN 06/29/2023: Patient seen and evaluated bedside, patient does complain of shortness of breath however she states her breathing has improved, continue patient on Lasix, blood work reviewed, potassium 5.9, Patient patient to be given insulin, dextrose, calcium gluconate and sodium bicarbonate. Continue patient on Lasix, oral potassium supplementation discontinued 06/30/2023: Patient seen and evaluated bedside, patient does complain of shortness of breath, blood work reviewed, potassium 5.5, lokelma given, follow- up on potassium levels. Renal function creatinine 2.4, nephrology following. Continue patient on Lasix transitioned from IV to oral. IV Solu-Medrol weaned down to daily as well 07/01/2023 Patient is still complaining from shortness of breath She is requiring BiPAP at night Currently she is on 4 L oxygen, at home she is on 3 L/m She still have bilateral congestion in the right pleural effusion of the chest x-ray Continued on oral Lasix 40 mg twice daily and Zaroxolyn 1 dose was given today Also she is on IV Solu-Medrol 40 mg once daily with pulmonary team following him closely On liquids for her chronic A. fib 07/02/2023 patient is breathing is somewhat controlled with episodes of worsening requiring BiPAP, currently she is on 3 L which is a much her home dose She still slightly confused and drowsy related to her metabolic encephalopathy. She is also being treated with oral Lasix and once daily IV Solu-Medrol. Her bladder scan was 440, [place] fax added and we will check it again. Her creatinine is slightly worse 2.6, potassium 5 and she got 1 dose of glaucoma. 07/03/2023 Patient is more drowsy, breathing is somewhat labored, she was on a 3 L oxygen but also she is using BiPAP at night and more frequently She has worsening infiltrate on the chest x-ray with cardiomegaly on today imaging compared to yesterday, also her ABG showing evidence with CO2 retention and acute hypoxic hypercapnic respiratory failure therefore patient was transferred to telemetry floor for higher level of care She has evidence of urinary retention with bladder scan for 40 therefore Flomax was added. She remains on her home dose of Eliquis 5 mg, Solu-Medrol 40 mg. Also she is on oral Lasix 40 mg twice daily Case was discussed in details with nephrology team as well as with the staff 07/04/2023 Was using BiPAP machine but she was awake, patient clinically is improving as confirmed with the daughter at bedside. Creatinine is improving down to 1.9. Her chest x-ray shows showing evidence of fluid overload and cardiomegaly Therefore more diuretics were added and agree with IV Lasix 40 mg 1 also patient started on Diamox Objective - Vital Signs Vital signs: Vital Signs Temp 97.8 F 07/04/23 13:22 Pulse 70 07/04/23 13:22 Resp 19 07/04/23 13:22 BP 110/75 07/04/23 13:22 Pulse Ox 94 L 07/04/23 08:39 FiO2 40 07/04/23 13:22 Intake & Output 07/03/23 07/04/23 07/04/23 18:59 06:59 18:59 Intake Total 0 Balance 0 Weight 84 kg Intake: Oral 0 Other: Voiding Method Bedside Commode Bedside Commode # Voids 3 # Bowel Movements 3 - Exam -GENERAL: The patient is alert and oriented x3, drowsy not in any acute distress. Well developed, well nourished. HEENT: Pupils are round and equally reacting to light. EOMI. No scleral icterus. No conjunctival pallor. Normocephalic, atraumatic. No pharyngeal erythema. No thyromegaly. CARDIOVASCULAR: S1 and S2 present. No murmurs, rubs, or gallops. -PULMONARY: Chest is clear to auscultation, no wheezing , bilateral basal crackles. Mildly tachypneic ABDOMEN: Soft, nontender, nondistended, normoactive bowel sounds. No palpable organomegaly. MUSCULOSKELETAL: No joint swelling or deformity. EXTREMITIES: No cyanosis, clubbing, or pedal edema. NEUROLOGICAL: Gross neurological examination did not reveal any focal deficits. SKIN: No rashes. no petechiae. - Labs CBC & Chem 7: 07/04/23 08:38 07/04/23 08:38 Labs: Abnormal Lab Results - Last 24 Hours (Table) 07/03/23 07/03/23 07/04/23 Range/Units 17:40 21:04 06:21 RBC (3.80-5.40) m/uL Hgb (11.4-16.0) gm/dL MCHC (31.0-37.0) g/dL RDW (11.5-15.5) % Plt Count (150-450) k/uL Lymphocytes # (1.0-4.8) k/uL ABG pH 7.32 L (7.35-7.45) ABG pCO2 80 H* (35-45) mmHg ABG pO2 60 L (83-108) mmHg ABG HCO3 41 H* (21-25) mmol/L ABG Total CO2 44 H (19-24) mmol/L ABG O2 Saturation 90.1 L (94-97) % Chloride (98-107) mmol/L Carbon Dioxide (22-30) mmol/L BUN (7-17) mg/dL Creatinine (0.52-1.04) mg/dL Glucose (74-99) mg/dL POC Glucose (mg/dL) 278 H 177 H (70-110) mg/dL Magnesium (1.6-2.3) mg/dL Total Bilirubin (0.2-1.3) mg/dL Delta Bilirubin (0.0-0.2) mg/dL Total Protein (6.3-8.2) g/dL Albumin (3.5-5.0) g/dL 07/04/23 07/04/23 07/04/23 Range/Units 08:38 08:38 11:24 RBC 3.56 L (3.80-5.40) m/uL Hgb 10.5 L (11.4-16.0) gm/dL MCHC 30.9 L (31.0-37.0) g/dL RDW 17.3 H (11.5-15.5) % Plt Count 131 L (150-450) k/uL Lymphocytes # 0.3 L (1.0-4.8) k/uL ABG pH (7.35-7.45) ABG pCO2 (35-45) mmHg ABG pO2 (83-108) mmHg ABG HCO3 (21-25) mmol/L ABG Total CO2 (19-24) mmol/L ABG O2 Saturation (94-97) % Chloride 94 L (98-107) mmol/L Carbon Dioxide 41 H* (22-30) mmol/L BUN 119 H* (7-17) mg/dL Creatinine 1.96 H (0.52-1.04) mg/dL Glucose 135 H (74-99) mg/dL POC Glucose (mg/dL) 288 H (70-110) mg/dL Magnesium 2.9 H (1.6-2.3) mg/dL Total Bilirubin 1.5 H (0.2-1.3) mg/dL Delta Bilirubin 0.4 H (0.0-0.2) mg/dL Total Protein 6.0 L (6.3-8.2) g/dL Albumin 3.4 L (3.5-5.0) g/dL Assessment and Plan Assessment: Acute on chronic congestive heart failure diastolic dysfunction Acute on chronic hypoxic respiratory failure multifactorial COPD, CHF exacerbation Severe COPD with chronic hypoxia on 3 L of oxygen at baseline Acute urinary retention Elevated troponin secondary to type II NH hypoxia Transient hyperkalemia Acute kidney injury Chronic kidney disease stage IV Paroxysmal atrial fibrillation on anticoagulation 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 Plan: Continue with Lasix 40 mg twice daily to receive orally Continue with IV Solu-Medrol Continue with oxygen therapy on BiPAP as needed Add the Flomax Several consultants on the case for the cardiology signed off, pulmonary and nephrology Labs and medication were reviewed.. Continue same treatment. Continue with symptomatic treatment. Resume home medication. Monitor labs and vitals. DVT and GI prophylaxis. Further recommendations as per clinical course of the patient DVT prophylaxis: eliquis GI Prophylaxis: Ppi PT/OT: Pending Prognosis is guarded
[2023-07-05 06:00] LABS: Glucose,Whole Blood 158 mg/dL (70-110)
[2023-07-05] MEDS: PANTOPRAZOLE 40 MG TABLET PO SCH ×2 (06:41→16:03)
[2023-07-05] MEDS: ALBUTEROL NEBULIZED 2.5 MG/3 ML INHALATION SCH ×4 (08:57→21:25)
--- NOTE | 2023-07-05 08:58 | XR ---
EXAMINATION TYPE: XR chest 1V portable DATE OF EXAM: 07/05/2023 HISTORY: Shortness of breath. COMPARISON: 07/03/2023 TECHNIQUE: Single view of the chest is submitted. FINDINGS: Demonstrated are scattered senescent parenchymal change. Continued cardiomegaly with pleural effusions pulmonary venous congestion and scattered infiltrates w ith overall improvement suggested. Hilar and mediastinal structures are within normal limits. Degenerative changes are seen of the dorsal spine. IMPRESSION: 1. Improving features of congestive failure
[2023-07-05] MEDS: SYMBICORT 160-4.5 MCG INHALER INHALATION SCH ×2 (08:59→21:25)
[2023-07-05 09:18] LABS: African American GFR (CKD) 26 (>60 ml/min/1.73 sqM); Calcium 8.9 mg/dL (8.4-10.2); Chloride 92 mmol/L (98-107); Glucose 177 mg/dL (74-99); Magnesium 2.7 mg/dL (1.6-2.3); Non-African American GFR(CKD) 22 (>60 ml/min/1.73 sqM); Potassium 3.8 mmol/L (3.5-5.1); Sodium 143 mmol/L (137-145)
[2023-07-05 09:25] LABS: Anion Gap 12 mmol/L
[2023-07-05 09:29] LABS: Blood Urea Nitrogen 106 mg/dL (7-17); Carbon Dioxide 39 mmol/L (22-30)
[2023-07-05] MEDS: CHOLECALCIFEROL 25 MCG (1000 IU) TABLET PO SCH (09:37)
[2023-07-05] MEDS: FERROUS SULFATE 325 MG TAB PO SCH (09:37)
[2023-07-05] MEDS: APIXABAN 5 MG TAB PO SCH ×2 (09:37→20:13)
[2023-07-05] MEDS: allopurinoL 300 MG TAB PO SCH (09:37)
[2023-07-05] MEDS: TAMSULOSIN 0.4 MG CAP.ER.24H PO SCH (09:38)
[2023-07-05] MEDS: methylPREDNISolone SOD SUCCI 40 MG/ML 1 ML VIAL IV SCH (09:38)
--- NOTE | 2023-07-05 10:58 | P.PN ---
Subjective Patient is seen in follow-up for acute kidney injury on chronic kidney disease. Renal function fairly stable. Resting in bed. On BiPAP. Family present at bedside. Has been voiding. Nonoliguric. Oral intake fair. No vomiting or diarrhea. Vital signs are stable. General: No acute distress. HEENT: Head exam is unremarkable. On BiPAP. LUNGS: No audible rhonchi or wheezes. HEART: Rate and Rhythm are regular. ABDOMEN: Nontender. EXTREMITITES: Trace edema. Objective - Vital Signs Vital signs: Vital Signs Temp 97.8 F 07/05/23 07:53 Pulse 74 07/05/23 09:11 Resp 22 07/05/23 07:53 BP 114/64 07/05/23 07:53 Pulse Ox 93 L 07/05/23 08:59 FiO2 40 07/05/23 04:06 Intake & Output 07/04/23 07/05/23 07/05/23 18:59 06:59 18:59 Intake Total 0 0 0 Output Total 601 800 Balance -601 -800 0 Intake: Oral 0 0 0 Output: Urine 600 800 Stool 1 Other: Voiding Method Bedside Commode # Bowel Movements 3 - Labs CBC & Chem 7: 07/04/23 08:38 07/05/23 08:01 Labs: Abnormal Lab Results - Last 24 Hours (Table) 07/04/23 07/04/23 07/04/23 Range/Units 08:38 11:24 16:38 Chloride (98-107) mmol/L Carbon Dioxide (22-30) mmol/L BUN (7-17) mg/dL Creatinine (0.52-1.04) mg/dL Glucose (74-99) mg/dL POC Glucose (mg/dL) 288 H 271 H (70-110) mg/dL Magnesium (1.6-2.3) mg/dL Procalcitonin 0.15 H (0.02-0.09) ng/mL 07/04/23 07/05/23 07/05/23 Range/Units 20:52 05:58 08:01 Chloride 92 L (98-107) mmol/L Carbon Dioxide 39 H (22-30) mmol/L BUN 106 H* (7-17) mg/dL Creatinine 2.09 H (0.52-1.04) mg/dL Glucose 177 H (74-99) mg/dL POC Glucose (mg/dL) 272 H 158 H (70-110) mg/dL Magnesium 2.7 H (1.6-2.3) mg/dL Procalcitonin (0.02-0.09) ng/mL Assessment and Plan Plan: Assessment: 1. Acute kidney injury secondary to ATN secondary to cardiorenal syndrome. No hydronephrosis noted on renal ultrasound. Right kidney atrophic. UA fairly benign. Renal function stable. Elevated BUN partially due to steroids - trending down. 2. Chronic kidney disease stage IIIB with baseline creatinine 1.5-1.8. Suspect nephrosclerosis. 3. Acute on chronic systolic CHF with ejection fraction of 35-40% with moderate mitral regurgitation, mild to moderate aortic insufficiency and severe tricuspid regurgitation and pulmonary hypertension. 4. Acute hypoxic respiratory failure. 5. Volume overload. Improving with diuresis. 6. Mild hypernatremia from lack of oral water intake. Improved. 7. Acute on chronic hypercapnic respiratory failure with metabolic alkalosis. Plan: Resume lasix 40 mg qday. Maintain Diamox for now. Encourage oral intake, including free water. Status post 1 dose of metolazone given 07/01/2023. Avoid nephrotoxins. Low-salt diet and 1500 mL fluid restriction. Continue to monitor renal function and urine output. Repeat labs in the morning. Case discussed with patient and her family present at bedside.
[2023-07-05 11:20] LABS: Glucose,Whole Blood 216 mg/dL (70-110)
[2023-07-05] MEDS: FUROSEMIDE 40 MG TAB PO SCH (12:21)
--- NOTE | 2023-07-05 13:45 | P.PN ---
Subjective Progress Note Date: 07/05/23 I am seeing this patient in new consultation today 06/26/2023 in the emergency room as she has progressively become more short of breath over the last couple weeks. Patient is a 78-year-old white female with past medical history significant for oxygen dependent COPD, CHF, chronic kidney disease, atrial fibrillation, permanent pacemaker, breast cancer with previous lumpectomy and radiation , among other things. She follows with a Dr. Ocampo, in [place], and has moved to the area within the last year. Patient states that she's had progressively worsening shortness of breath over the last couple weeks. She is normally oxygen dependent on 3 L/m nasal cannula. Her shortness of breath is mostly exertional. It's accompanied with chest tightness. She's had a dry nonproductive cough. Denies any fevers. Denies sick contacts. She also states that over weekend, she went to [place] with her family, and did not want to take her Lasix. She held her Lasix on her own from to Monday. Her breathing did get worse. She also admits increased lower extremity swelling. Patient is currently sitting up in bed, on 3 L/m nasal cannula, in no acute distress. Chest x-ray on arrival showed cardiomegaly with bilateral pleural effusions right greater than left and likely bibasilar compressive atelectasis, underlying infectious process could not be ruled out. Most recent echocardiogram from October of this year shows borderline LV systolic function with an EF of 50%. Severe pulmonary hypertension with a RVSP of 67 mmHg, severe right ventricular dilation and moderate tricuspid regurgitation. CBC on arrival showed a WBC count of 6.5, hemoglobin 10.6, hematocrit 35.4, platelets 190. BMP on arrival shows sodium 145, potassium 4.4, chloride 98, serum bicarb 39, BUN 40, creatinine 1.77, glucose 124. Troponins were elevated but flat. NT proBNP was significantly elevated 19,700. ECG on arrival showed a ventricular paced rhythm. Hemodynamically stable. today's evaluation of 06/27/2023, the patient is still having difficulty breathing. She remains on oxygen 5 L/m nasal cannula. Repeat chest x-ray was doneand it showed cardiomegaly and stable perihilar and bibasilar interstitial markings along with small bilateral pleural effusion consistent with CHF. Echocardiogram was done yesterday and the patient was found to have a left insular ejection fraction of 35-40% with moderate MR, [id number] aortic regurgitation, severe tricuspid regurgitation and severe pulmonary hypertension. Labs from today are still pending. Creatinine was elevated at 1.77. Her pr oBNP level was 19,700 and the patient also had troponin levels of 0.06 and 0.05 and 0.06 respectively. The viral screen was negative including Covid 19. She is on Symbicort. She is on DuoNeb [facility]. She is on IV Solu-Medrol 60 mg every 6 hours. She is on Lasix 40 mg every 12 hours. She is also on anticoagulation with Eliquis. The fluid balance has not been accurately measured. She seems to be in a negative fluid balance for now. On 06/28/2023, the patient is being seen for a follow-up. Still having increased shortness of breath and he she continues to be on oxygen 5 L/m nasal cannula. She is bronchospastic and wheezy. She remains on bronchodilators. She remains on steroids. She is also on diuretics and the patient is on Lasix 40 mg IV every 12 hours. No major improvement since yesterday. She has COPD and biventricular heart failure. Labs show a BUN of 59 with a creatinine of 2.2. Sodium level is at 145, bili cigars at 9 with a hemoglobin of 9.9. The fluid balance has been negative. Echo measurements of the input output has not been established. She remains on anticoagulation with Eliquis 5 mg by mouth twice a day. Rest of the home medications have been resumed. On today's evaluation of , the patient is feeling better. She is short of breath. She remains on a combination of bronchodilators, steroids, and diuretics and the patient remains on Lasix 40 mg by mouth twice a day. She remains on IV Solu-Medrol 60 g every 6 hours. She is on 4 L of oxygen nasal cannula with a pulse ox of 90%. She is able to sit up on a chair. Her white cell count is at 8.7 with a hemoglobin of 10.5 and a platelet count of 1. There is a component of an acute kidney injury. BUN is at 70 with a creatinine of 2.5 and the patient was taken off the IV Lasix and switch to oral Lasix. Sodium is at 142 and a potassium level is at 5.9. No other significant events overnight. No altered mentation. No chest pain. Remains on anticoagulation with Eliquis 5 mg by mouth twice a day. On today's evaluation of 06/30/2023, the patient is being seen for a follow-up. The patient continues to struggle with her breathing. Earlier today, the patient was noted to be more somnolent and sleepy. Based on that, a blood gas was done and the patient was found to have a pH of 7.26 and the P CO2 of 87 and pO2 of 61. Based on that, the patient was placed on a BiPAP at a pressure of 10/5 cm of water. The patient continues to diurese. Creatinine is up to 2.4 with a BUN of 79. The findings of the case. Sodium is at 142. Ultrasound of the kidneys were done and there is chronic mild medical renal disease. No solid kidney masses. No evidence of hydronephrosis. No kidney stones. The patient continues to be on DuoNeb neb blotchiness on the clock. The patient is also on Symbicort. The patient is receiving IV Solu-Medrol 40 mg on a daily basis. In terms of diuresis, the patient is on oral Lasix 40 mg by mouth twice a day. Rest of the medications unchanged. On 07/01/2023, the patient is being seen for a follow-up. Unfortunately, she still having episodes of lethargy and increased sleepiness and diminished level of consciousness. Earlier this morning she was fine and subsequently she became more lethargic. I suspect that the patient is having some episodes of hypercapnic respiratory failure. She is on enough being placed on a BiPAP. She remains on the same treatment for now. She is on DuoNeb updrafts and IV Solu- Medrol 40 mg every 24-hour speech is also on oral Lasix 40 mg twice a day. A repeat chest x-ray was done and the chest x-ray findings are showing carotid negative pulmonary vessel congestion. There is moderate right and small left- sided pleural effusion. She has significant kyphoscoliosis of the chest. Labs from today shows improvement of the scope 9.4, he was sent 0.9, sodium levels of 142, potassium is at 5, BUN is at 96 with creatinine of 2.4. UA is negative. Troponins of 0.06. On 07/02/2023, the patient is sitting up on a chair and she is wearing the BiPAP. She is stable. She is communicating. She is arousable. She has an acute kidney injury on top of her chronic kidney disease. 11 function slightly worse compared to yesterday. On today's blood work, the sodium level is at 142, BUN is at 102 with a creatinine of 2.6. Potassium levels at 5.0. UA negative. The patient remains on bronchodilators. The patient remains on IV Solu-Medrol. She is also on Lasix 40 mg by mouth twice a day. Nephrology is on the case. The patient is seen today 07/03/2023 in follow-up on the regular medical floor. She is currently sitting up in bed. Awake and alert in no acute distress. She is currently maintaining O2 saturations in the 90s on 3 L/m per nasal cannula. She is alternating with BiPAP 12/5 and 40% FiO2. Sodium 146. Potassium 4.3. Bicarb 39. BUN 103. Creatinine 2.3. Glucose 167. Chest x-ray reveals stable bibasilar infiltrates with small effusions and cardiomegaly. She is continued on Symbicort and albuterol. Remains on IV Solu-Medrol. Remains on oral diuretics. Anticoagulated with Eliquis. The patient is seen today 07/04/2023 in follow-up on the regular medical floor. She is awake and alert in no acute distress. Resting fairly comfortably in bed. She is more alert today. Talking with her family. She is utilizing the BiPAP 16/5 on 40% FiO2 while resting and at nighttime. She remains afebrile. Hemodynamically stable. Count 7.6. Hemoglobin 10.5. Platelets 131. Sodium 142. Potassium 4.1. Bicarb 41. BUN 118. Creatinine 1.96. Glucose 135. ProBNP 28,100. She's been initiated on Diamox. Continued on DuoNeb inhalations, Symbicort, Solu-Medrol and Singulair. Anticoagulated with Eliquis. The patient is seen today 07/05/2023 in follow-up on the regular medical floor. She is currently resting comfortably in bed. Currently on BiPAP 16/5 on 40% FiO2. Chest x-ray showing improvement of the congestive heart failure. Less pulmonary venous congestion. Sodium 143. Potassium 3.8. Bicarb 39. BUN 106. Creatinine 2.09. Glucose 177. She remains on DuoNeb inhalations, Symbicort, Solu-Medrol and Singulair. Anticoagulated with Eliquis. Continued on Lasix and Diamox. Making adequate urine. Objective - Vital Signs Vital signs: Vital Signs Temp 98.6 F 07/05/23 12:00 Pulse 78 07/05/23 12:13 Resp 24 07/05/23 12:00 BP 110/65 07/05/23 12:00 Pulse Ox 92 L 07/05/23 12:00 FiO2 40 07/05/23 04:06 Intake & Output 07/04/23 07/05/23 07/05/23 18:59 06:59 18:59 Intake Total 0 0 200 Output Total 601 800 Balance -601 -800 200 Intake: Oral 0 0 200 Output: Urine 600 800 Stool 1 Other: Voiding Method Bedside Commode # Bowel Movements 3 - Exam GENERAL EXAM: Alert, 78-year-old female, resting in bed, on BiPAP 16/5 and 40% FiO2, in no apparent distress. HEAD: Normocephalic. EYES: Normal reaction of pupils, equal size. NOSE: Clear with pink turbinates. THROAT: No erythema or exudates. NECK: No masses, no JVD. CHEST: No chest wall deformity. LUNGS: Equal air entry with crackles in the bilateral bases. CVS: S1 and S2 normal with no audible murmur, regular rhythm. ABDOMEN: No hepatosplenomegaly, normal bowel sounds, no guarding or rigidity. SPINE: No scoliosis or deformity SKIN: No rashes CENTRAL NERVOUS SYSTEM: No focal deficits, tone is normal in all 4 extremities. EXTREMITIES: There is no peripheral edema. No clubbing, no cyanosis. Peripheral pulses are intact. - Labs CBC & Chem 7: 07/04/23 08:38 07/05/23 08:01 Labs: Abnormal Lab Results - Last 24 Hours (Table) 07/04/23 07/04/23 07/04/23 Range/Units 08:38 16:38 20:52 Chloride (98-107) mmol/L Carbon Dioxide (22-30) mmol/L BUN (7-17) mg/dL Creatinine (0.52-1.04) mg/dL Glucose (74-99) mg/dL POC Glucose (mg/dL) 271 H 272 H (70-110) mg/dL Magnesium (1.6-2.3) mg/dL Procalcitonin 0.15 H (0.02-0.09) ng/mL 07/05/23 07/05/23 07/05/23 Range/Units 05:58 08:01 11:16 Chloride 92 L (98-107) mmol/L Carbon Dioxide 39 H (22-30) mmol/L BUN 106 H* (7-17) mg/dL Creatinine 2.09 H (0.52-1.04) mg/dL Glucose 177 H (74-99) mg/dL POC Glucose (mg/dL) 158 H 216 H (70-110) mg/dL Magnesium 2.7 H (1.6-2.3) mg/dL Procalcitonin (0.02-0.09) ng/mL Assessment and Plan Assessment: Acute on chronic hypoxemic respiratory failure, secondary to a combination of exacerbation of systolic congestive heart failure/biventricular heart failure as the patient has LV dysfunction with an ejection fraction of 35% addition to valvular insufficiency involving the mitral and aortic valve and severe t ricuspid regurgitation with severe pulmonary hypertension. The RV is also severely dilated. Patient also has a component of acute COPD exacerbation. Alternating 3 L nasal cannula with BiPAP support 16/5 on 40% FiO2. Chest x-ray today showing improved aeration and less pulmonary venous congestion. Severe oxygen dependent COPD, and the patient has chronic hypoxic respiratory failure normally on 3 L Chronic hypoxemic respiratory failure secondary to above Severe pulmonary hypertension Acute on top of chronic kidney disease stage IV, patient is currently on Diamox and Lasix Anemia of chronic disease Paroxysmal atrial fibrillation, anticoagulated on Eliquis Chronically elevated troponins History of permanent pacemaker implantation, currently ventricularly paced Remote history of breast cancer, with previous lumpectomy and radiation Nonocclusive coronary artery disease Previous history of atrial fibrillation Plan: The patient was seen and evaluated Chest x-ray, labs and medications reviewed Continue the current treatment plan Titrate the FiO2 as tolerated We will continue to follow I have personally seen and examined the patient, performed the documentation and the assessment and plan as written. Number of minutes spent on the visit: 10.
[2023-07-05 16:34] LABS: Glucose,Whole Blood 298 mg/dL (70-110)
[2023-07-05] MEDS ORDERED: DEXTROSE 50% SYRINGE 50 ML IVP PRN (16:54)
[2023-07-05] MEDS: INSULIN ASPART (NovoLOG) 100 UNIT/ML VIAL SQ SCH ×2 (17:26→20:12)
[2023-07-05 20:09] LABS: Glucose,Whole Blood 253 mg/dL (70-110)
[2023-07-05] MEDS: MONTELUKAST 10 MG TAB PO SCH (20:12)
[2023-07-05] MEDS: METOPROLOL SUCCINATE (ER) 25 MG TAB.ER.24H PO SCH (20:12)
[2023-07-05] MEDS: LORATADINE 10 MG TAB PO SCH (20:13)
[2023-07-06] MEDS: ACETAMINOPHEN TAB 325 MG TAB PO PRN (04:50)
[2023-07-06 06:10] LABS: Glucose,Whole Blood 86 mg/dL (70-110)
--- NOTE | 2023-07-06 06:10 | P.PN ---
Subjective 78-year-old patient with past medical history significant for congestive heart failure, chronic kidney disease, history of a defibrillation status post pacemaker in place, previous history of breast cancer status post lumpectomy and radiation, COPD on home oxygen, presented to the emergency department with complaints of progressive shortness of breath. At baseline patient weighs 3 L of oxygen, however patient has been having more exertional shortness of breath as well as chest pain. This was associated with nonproductive cough, patient denies associated fever, chills, nausea, vomiting with 6 contact. states her symptoms started 1 week ago around when she went up with the family. Patient states she had her Lasix during that time and started to feel short of breath since then. She has noticed increased swelling and lower extremity as well Workup initiated in ER included a chest x-ray which showed bilateral pleural effusions as well as cardiomegaly. Workup in ER included CBC which were WBC count of 6.5 hemoglobin 10.6 platelet 190, serum chemistry shows sodium 145 potassium 4.5 chloride 98 , serum bicarbonate 39 BU and 40 creatinine 1.77. Patient had elevated troponin which remained flat in ED, N-terminal proBNP was noted to be 19,700, EKG obtained in ER showed paced rhythm Patient to be admitted to medical floor with consultation from pulmonary medicine and cardiology 06/27/2023: Patient seen and evaluated bedside patient seen in ER room 1, waiting for bed, continue patient on diuresis the patient input from pulmonary medicine, blood work reviewed, serum chemistry reviewed creatinine 2.09. N- terminal proBNP [id number] 06/28/2023: Patient seen and evaluated bedside, patient in room 485, patient does complain of shortness of breath, follow-up chest x-ray obtained shows slight improvement in pulmonary vascular congestion was on 6 L of oxygen weaned down to 4 L. Appreciate input from cardiology, WBC within normal limits, serum chemistry and renal function reviewed, creatinine 2.2 N-terminal proBNP [id number]. Pro-calcitonin was negative. Once kidney function improved patient will benefit from ELLEN 06/29/2023: Patient seen and evaluated bedside, patient does complain of shortness of breath however she states her breathing has improved, continue patient on Lasix, blood work reviewed, potassium 5.9, Patient patient to be given insulin, dextrose, calcium gluconate and sodium bicarbonate. Continue patient on Lasix, oral potassium supplementation discontinued 06/30/2023: Patient seen and evaluated bedside, patient does complain of shortness of breath, blood work reviewed, potassium 5.5, lokelma given, follow- up on potassium levels. Renal function creatinine 2.4, nephrology following. Continue patient on Lasix transitioned from IV to oral. IV Solu-Medrol weaned down to daily as well 07/01/2023 Patient is still complaining from shortness of breath She is requiring BiPAP at night Currently she is on 4 L oxygen, at home she is on 3 L/m She still have bilateral congestion in the right pleural effusion of the chest x-ray Continued on oral Lasix 40 mg twice daily and Zaroxolyn 1 dose was given today Also she is on IV Solu-Medrol 40 mg once daily with pulmonary team following him closely On liquids for her chronic A. fib 07/02/2023 patient is breathing is somewhat controlled with episodes of worsening requiring BiPAP, currently she is on 3 L which is a much her home dose She still slightly confused and drowsy related to her metabolic encephalopathy. She is also being treated with oral Lasix and once daily IV Solu-Medrol. Her bladder scan was 440, [place] fax added and we will check it again. Her creatinine is slightly worse 2.6, potassium 5 and she got 1 dose of glaucoma. 07/03/2023 Patient is more drowsy, breathing is somewhat labored, she was on a 3 L oxygen but also she is using BiPAP at night and more frequently She has worsening infiltrate on the chest x-ray with cardiomegaly on today imaging compared to yesterday, also her ABG showing evidence with CO2 retention and acute hypoxic hypercapnic respiratory failure therefore patient was transferred to telemetry floor for higher level of care She has evidence of urinary retention with bladder scan for 40 therefore Flomax was added. She remains on her home dose of Eliquis 5 mg, Solu-Medrol 40 mg. Also she is on oral Lasix 40 mg twice daily Case was discussed in details with nephrology team as well as with the staff 07/04/2023 Was using BiPAP machine but she was awake, patient clinically is improving as confirmed with the daughter at bedside. Creatinine is improving down to 1.9. Her chest x-ray shows showing evidence of fluid overload and cardiomegaly Therefore more diuretics were added and agree with IV Lasix 40 mg 1 also patient started on Diamox 07/05/2024 Patient is more comfortable this morning however she is still very lethargic requiring BiPAP with the setting of Currently on BiPAP 06/12 on 40% FiO2 Patient denies chest pain, she still short of breath no significant coughing. No change in urine or bowel habits. No fever. She has some mild leg edema as well. Her abdominal examination. Labs reviewed showing hemoglobin 10.5, creatinine remains same 1.9 went to 2.0. Chest x-ray showing cardiomegaly with bilateral infiltrate suspected fluid overload from CHF but improved compared to chest x-ray from yesterday. Patient Eliquis 5 Mg, Solu-Medrol 40 Mg Once Daily and Holding Her farTiansheng Social history Lasix daily, and dimox. Flomax is admitted for some urinary retention although does not require catheterization I had lengthy discussion with family and all questions answered Review of systems CONSTITUTIONAL: No fever, no malaise, no fatigue. HEENT: No recent visual problems or hearing problems. Denied any sore throat. CARDIOVASCULAR: No orthopnea, PND, no palpitations, no syncope. PULMONARY: No shortness of breath, no cough, no hemoptysis. GASTROINTESTINAL: No diarrhea, no nausea, no vomiting, no abdominal pain. Normoactive bowel sounds. NEUROLOGICAL: No headaches, no weakness, no numbness. Active Medications Generic Name Dose Route Start Last Admin Trade Name Freq PRN Reason Stop Dose Admin Acetaminophen 650 mg 06/27/23 10:36 07/06/23 04:50 Acetaminophen Tab 325 Mg Tab PO 650 mg Q6HR PRN Administration Fever and/ or Pain Acetazolamide Sodium 250 mg 07/04/23 21:00 07/05/23 20:12 Acetazolamide Sodium 500 Mg Vial IV 250 mg Q12HR OANH Administration Albuterol Sulfate 2.5 mg 06/26/23 08:00 07/05/23 21:25 Albuterol Nebulized 2.5 Mg/3 Ml INHALATION 2.5 mg RT-QID OANH Administration Albuterol/Ipratropium 3 ml 06/26/23 01:50 06/29/23 21:45 Ipratropium-Albuterol 3 Ml Neb INHALATION 3 ml RT-QID PRN Administration Shortness Of Breath Allopurinol 150 mg 06/26/23 09:00 07/05/23 09:37 Allopurinol 300 Mg Tab PO 150 mg DAILY OANH Administration Apixaban 5 mg 06/26/23 09:00 07/05/23 20:13 Apixaban 5 Mg Tab PO 5 mg BID OANH Administration Protocol Budesonide/Formoterol Fumarate 2 puff 06/26/23 08:00 07/05/23 21:25 Symbicort 160-4.5 Mcg Inhaler INHALATION 2 puff RT-BID OANH Administration Cholecalciferol 75 mcg 06/26/23 09:00 07/05/23 09:37 Cholecalciferol 25 Mcg (1000 Iu) Tablet PO 75 mcg DAILY OANH Administration Colchicine 0.6 mg 06/27/23 09:00 07/04/23 08:47 Colchicine 0.6 Mg Each PO 0.6 mg TUTH OANH Administration Dextrose/Water 25 ml 07/05/23 16:54 Dextrose 50% Syringe 50 Ml IVP PER PROTOCOL PRN Hypoglycemia Protocol Dextrose/Water 50 ml 07/05/23 16:54 Dextrose 50% Syringe 50 Ml IVP PER PROTOCOL PRN Hypoglycemia Protocol Ferrous Sulfate 325 mg 06/26/23 09:00 07/05/23 09:37 Ferrous Sulfate 325 Mg Tab PO 325 mg DAILY OANH Administration Furosemide 40 mg 07/05/23 11:00 07/05/23 12:21 Furosemide 40 Mg Tab PO 40 mg DAILY OANH Administration Insulin Aspart 0 unit 07/05/23 17:30 07/05/23 20:12 Insulin Aspart (Novolog) 100 Unit/Ml Vial SQ 6 unit ACHS OANH Administration Protocol Loratadine 10 mg 06/26/23 21:00 07/05/23 20:13 Loratadine 10 Mg Tab PO 10 mg HS OANH Administration Methylprednisolone Sodium Succinate 40 mg 07/01/23 09:00 07/05/23 09:38 Methylprednisolone Sod Succi 40 Mg/Ml 1 Ml Vial IV 40 mg DAILY OANH Administration Metoprolol Succinate 75 mg 06/26/23 21:00 07/05/23 20:12 Metoprolol Succinate (Er) 25 Mg Tab.Er.24h PO 75 mg HS OANH Administration Montelukast Sodium 10 mg 06/26/23 21:00 07/05/23 20:12 Montelukast 10 Mg Tab PO 10 mg HS OANH Administration Morphine Sulfate 4 mg 06/26/23 00:26 07/01/23 03:07 Morphine Sulfate 4 Mg/Ml Syringe IV 4 mg Q4HR PRN Administration Severe Pain (Scale 7 to 10) Naloxone HCl 0.2 mg 06/26/23 00:26 Naloxone 0.4 Mg/Ml 1 Ml Vial IV Q2M PRN Opioid Reversal Ondansetron HCl 4 mg 06/26/23 00:26 Ondansetron 4 Mg/2 Ml Vial IVP Q8HR PRN Nausea And Vomiting Pantoprazole Sodium 40 mg 06/26/23 07:30 07/05/23 16:03 Pantoprazole 40 Mg Tablet PO 40 mg AC-BID OANH Administration Tamsulosin HCl 0.4 mg 07/03/23 08:30 07/05/23 09:38 Tamsulosin 0.4 Mg Cap.Er.24h PO 0.4 mg [id number] OANH Administration Objective - Vital Signs Vital signs: Vital Signs Temp 97.7 F 07/05/23 16:05 Pulse 74 07/05/23 16:24 Resp 24 07/05/23 16:05 BP 110/62 07/05/23 16:05 Pulse Ox 91 L 07/05/23 16:05 FiO2 40 07/05/23 04:06 Intake & Output 07/04/23 07/05/23 07/05/23 18:59 06:59 18:59 Intake Total 0 0 200 Output Total 601 800 Balance -601 -800 200 Intake: Oral 0 0 200 Output: Urine 600 800 Stool 1 Other: Voiding Method Bedside Commode # Bowel Movements 3 - Exam -GENERAL: The patient is alert and oriented x3, drowsy not in any acute distress. Well developed, well nourished. HEENT: Pupils are round and equally reacting to light. EOMI. No scleral icterus. No conjunctival pallor. Normocephalic, atraumatic. No pharyngeal erythema. No thyromegaly. CARDIOVASCULAR: S1 and S2 present. No murmurs, rubs, or gallops. -PULMONARY: Chest is clear to auscultation, no wheezing , bilateral basal crackles. Mildly tachypneic ABDOMEN: Soft, nontender, nondistended, normoactive bowel sounds. No palpable organomegaly. MUSCULOSKELETAL: No joint swelling or deformity. EXTREMITIES: No cyanosis, clubbing, or pedal edema. NEUROLOGICAL: Gross neurological examination did not reveal any focal deficits. SKIN: No rashes. no petechiae. - Labs CBC & Chem 7: 07/04/23 08:38 07/05/23 08:01 Labs: Abnormal Lab Results - Last 24 Hours (Table) 07/04/23 07/04/23 07/05/23 Range/Units 16:38 20:52 05:58 Chloride (98-107) mmol/L Carbon Dioxide (22-30) mmol/L BUN (7-17) mg/dL Creatinine (0.52-1.04) mg/dL Glucose (74-99) mg/dL POC Glucose (mg/dL) 271 H 272 H 158 H (70-110) mg/dL Magnesium (1.6-2.3) mg/dL 07/05/23 07/05/23 Range/Units 08:01 11:16 Chloride 92 L (98-107) mmol/L Carbon Dioxide 39 H (22-30) mmol/L BUN 106 H* (7-17) mg/dL Creatinine 2.09 H (0.52-1.04) mg/dL Glucose 177 H (74-99) mg/dL POC Glucose (mg/dL) 216 H (70-110) mg/dL Magnesium 2.7 H (1.6-2.3) mg/dL Assessment and Plan Assessment: Acute on chronic congestive heart failure diastolic dysfunction Acute on chronic hypoxic respiratory failure multifactorial COPD, CHF exacerbation Severe COPD with chronic hypoxia on 3 L of oxygen at baseline Acute urinary retention Elevated troponin secondary to type II VT hypoxia Transient hyperkalemia Acute kidney injury Chronic kidney disease stage IV Paroxysmal atrial fibrillation on anticoagulation 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 Plan: Continue with Lasix 40 mg twice daily to receive orally Continue with IV Solu-Medrol Continue with oxygen therapy on BiPAP as needed Add the Flomax Several consultants on the case for the cardiology signed off, pulmonary and nephrology Labs and medication were reviewed.. Continue same treatment. Continue with symptomatic treatment. Resume home medication. Monitor labs and vitals. DVT and GI prophylaxis. Further recommendations as per clinical course of the patient DVT prophylaxis: eliquis GI Prophylaxis: Ppi PT/OT: Pending Prognosis is guarded
[2023-07-06] MEDS: INSULIN ASPART (NovoLOG) 100 UNIT/ML VIAL SQ SCH ×4 (06:37→20:41)
[2023-07-06] MEDS: PANTOPRAZOLE 40 MG TABLET PO SCH (06:37)
[2023-07-06] MEDS: ALBUTEROL NEBULIZED 2.5 MG/3 ML INHALATION SCH ×4 (08:07→21:16)
[2023-07-06] MEDS: SYMBICORT 160-4.5 MCG INHALER INHALATION SCH ×2 (08:07→21:16)
[2023-07-06] MEDS: methylPREDNISolone SOD SUCCI 40 MG/ML 1 ML VIAL IV SCH (08:50)
[2023-07-06] MEDS: FUROSEMIDE 40 MG TAB PO SCH (08:50)
[2023-07-06] MEDS: COLCHICINE 0.6 MG EACH PO SCH (08:50)
[2023-07-06] MEDS: CHOLECALCIFEROL 25 MCG (1000 IU) TABLET PO SCH (08:50)
[2023-07-06] MEDS: FERROUS SULFATE 325 MG TAB PO SCH (08:50)
[2023-07-06] MEDS: TAMSULOSIN 0.4 MG CAP.ER.24H PO SCH (08:51)
[2023-07-06] MEDS: APIXABAN 5 MG TAB PO SCH ×2 (08:51→20:41)
[2023-07-06] MEDS: allopurinoL 300 MG TAB PO SCH (08:51)
[2023-07-06] MEDS ORDERED: FAMOTIDINE 20 MG TAB PO SCH (09:00)
[2023-07-06 09:05] LABS: African American GFR (CKD) 32 (>60 ml/min/1.73 sqM); Blood Urea Nitrogen 89 mg/dL (7-17); Calcium 8.8 mg/dL (8.4-10.2); Chloride 93 mmol/L (98-107); Glucose 76 mg/dL (74-99); Magnesium 2.6 mg/dL (1.6-2.3); Non-African American GFR(CKD) 27 (>60 ml/min/1.73 sqM); Potassium 3.5 mmol/L (3.5-5.1); Sodium 143 mmol/L (137-145)
[2023-07-06 09:11] LABS: Anion Gap 6 mmol/L
[2023-07-06 09:18] LABS: Carbon Dioxide 44 mmol/L (22-30)
[2023-07-06] MEDS ORDERED: POTASSIUM CHLORIDE ER 20 MEQ TAB.ER PO STA (11:13)
[2023-07-06 11:14] LABS: ABG Oxygen Saturation 93.2 % (94-97); ABG PH 7.36 (7.35-7.45); ABG PO2 64 mmHg (83-108); ABG TCO2 44 mmol/L (19-24); Allen Test Performed? Yes
--- NOTE | 2023-07-06 11:14 | P.PN ---
Subjective Patient is seen in follow-up for acute kidney injury on chronic kidney disease. Renal function better. Resting in bed. On nasal cannula. Has been voiding. Nonoliguric. Oral intake fair. No vomiting or diarrhea. Vital signs are stable. General: No acute distress. HEENT: Head exam is unremarkable. On nasal cannula. LUNGS: No audible rhonchi or wheezes. HEART: Rate and Rhythm are regular. ABDOMEN: Nontender. EXTREMITITES: Trace edema. Objective - Vital Signs Vital signs: Vital Signs Temp 97.5 F L 07/06/23 08:47 Pulse 67 07/06/23 08:47 Resp 18 07/06/23 08:47 BP 105/68 07/06/23 08:47 Pulse Ox 93 L 07/06/23 08:47 FiO2 40 07/06/23 00:48 Intake & Output 07/05/23 07/06/23 07/06/23 18:59 06:59 18:59 Intake Total 1010 250 Output Total 1600 Balance 1010 -1600 250 Intake: IV 10 Invasive Line 3 10 Oral 1010 240 Output: Urine 1600 Other: Voiding Method Bedside Commode # Voids 1 - Labs CBC & Chem 7: 07/04/23 08:38 07/06/23 07:30 Labs: Abnormal Lab Results - Last 24 Hours (Table) 07/05/23 07/05/23 07/05/23 Range/Units 11:16 16:32 20:07 Chloride (98-107) mmol/L Carbon Dioxide (22-30) mmol/L BUN (7-17) mg/dL Creatinine (0.52-1.04) mg/dL POC Glucose (mg/dL) 216 H 298 H 253 H (70-110) mg/dL Magnesium (1.6-2.3) mg/dL 07/06/23 Range/Units 07:30 Chloride 93 L (98-107) mmol/L Carbon Dioxide 44 H* (22-30) mmol/L BUN 89 H (7-17) mg/dL Creatinine 1.76 H (0.52-1.04) mg/dL POC Glucose (mg/dL) (70-110) mg/dL Magnesium 2.6 H (1.6-2.3) mg/dL Assessment and Plan Plan: Assessment: 1. Acute kidney injury secondary to ATN secondary to cardiorenal syndrome. No hydronephrosis noted on renal ultrasound. Right kidney atrophic. UA fairly benign. Renal function better. Elevated BUN partially due to steroids - trending down. 2. Chronic kidney disease stage IIIB with baseline creatinine 1.5-1.8. Suspect nephrosclerosis. 3. Acute on chronic systolic CHF with ejection fraction of 35-40% with moderate mitral regurgitation, mild to moderate aortic insufficiency and severe tricuspid regurgitation and pulmonary hypertension. 4. Acute hypoxic respiratory failure. 5. Volume overload. Improving with diuresis. 6. Mild hypernatremia from lack of oral water intake. Improved. 7. Acute on chronic hypercapnic respiratory failure with metabolic alkalosis. 8. Hypokalemia from diuresis. Magnesium normal. Plan: Hold Lasix due to worsening alkalosis. Maintain Diamox for now. Repeat chest x-ray tomorrow morning. Follow-up ABG. Replace potassium. Encourage oral intake, including free water. Avoid nephrotoxins. Low-salt diet and 1500 mL fluid restriction. Continue to monitor renal function and urine output. Repeat labs in the morning.
[2023-07-06 11:16] LABS: ABG HCO3 41 mmol/L (21-25); ABG PCO2 73 mmHg (35-45)
[2023-07-06 11:28] LABS: Glucose,Whole Blood 184 mg/dL (70-110)
--- NOTE | 2023-07-06 13:33 | P.PN ---
Subjective Progress Note Date: 07/06/23 I am seeing this patient in new consultation today 06/26/2023 in the emergency room as she has progressively become more short of breath over the last couple weeks. Patient is a 78-year-old white female with past medical history significant for oxygen dependent COPD, CHF, chronic kidney disease, atrial fibrillation, permanent pacemaker, breast cancer with previous lumpectomy and radiation , among other things. She follows with a Dr. Ocampo, in [place], and has moved to the area within the last year. Patient states that she's had progressively worsening shortness of breath over the last couple weeks. She is normally oxygen dependent on 3 L/m nasal cannula. Her shortness of breath is mostly exertional. It's accompanied with chest tightness. She's had a dry nonproductive cough. Denies any fevers. Denies sick contacts. She also states that over weekend, she went to [place] with her family, and did not want to take her Lasix. She held her Lasix on her own from to Monday. Her breathing did get worse. She also admits increased lower extremity swelling. Patient is currently sitting up in bed, on 3 L/m nasal cannula, in no acute distress. Chest x-ray on arrival showed cardiomegaly with bilateral pleural effusions right greater than left and likely bibasilar compressive atelectasis, underlying infectious process could not be ruled out. Most recent echocardiogram from October of this year shows borderline LV systolic function with an EF of 50%. Severe pulmonary hypertension with a RVSP of 67 mmHg, severe right ventricular dilation and moderate tricuspid regurgitation. CBC on arrival showed a WBC count of 6.5, hemoglobin 10.6, hematocrit 35.4, platelets 190. BMP on arrival shows sodium 145, potassium 4.4, chloride 98, serum bicarb 39, BUN 40, creatinine 1.77, glucose 124. Troponins were elevated but flat. NT proBNP was significantly elevated 19,700. ECG on arrival showed a ventricular paced rhythm. Hemodynamically stable. today's evaluation of 06/27/2023, the patient is still having difficulty breathing. She remains on oxygen 5 L/m nasal cannula. Repeat chest x-ray was doneand it showed cardiomegaly and stable perihilar and bibasilar interstitial markings along with small bilateral pleural effusion consistent with CHF. Echocardiogram was done yesterday and the patient was found to have a left insular ejection fraction of 35-40% with moderate MR, [id number] aortic regurgitation, severe tricuspid regurgitation and severe pulmonary hypertension. Labs from today are still pending. Creatinine was elevated at 1.77. Her pr oBNP level was 19,700 and the patient also had troponin levels of 0.06 and 0.05 and 0.06 respectively. The viral screen was negative including Covid 19. She is on Symbicort. She is on DuoNeb [facility]. She is on IV Solu-Medrol 60 mg every 6 hours. She is on Lasix 40 mg every 12 hours. She is also on anticoagulation with Eliquis. The fluid balance has not been accurately measured. She seems to be in a negative fluid balance for now. On 06/28/2023, the patient is being seen for a follow-up. Still having increased shortness of breath and he she continues to be on oxygen 5 L/m nasal cannula. She is bronchospastic and wheezy. She remains on bronchodilators. She remains on steroids. She is also on diuretics and the patient is on Lasix 40 mg IV every 12 hours. No major improvement since yesterday. She has COPD and biventricular heart failure. Labs show a BUN of 59 with a creatinine of 2.2. Sodium level is at 145, bili cigars at 9 with a hemoglobin of 9.9. The fluid balance has been negative. Echo measurements of the input output has not been established. She remains on anticoagulation with Eliquis 5 mg by mouth twice a day. Rest of the home medications have been resumed. On today's evaluation of , the patient is feeling better. She is short of breath. She remains on a combination of bronchodilators, steroids, and diuretics and the patient remains on Lasix 40 mg by mouth twice a day. She remains on IV Solu-Medrol 60 g every 6 hours. She is on 4 L of oxygen nasal cannula with a pulse ox of 90%. She is able to sit up on a chair. Her white cell count is at 8.7 with a hemoglobin of 10.5 and a platelet count of 1. There is a component of an acute kidney injury. BUN is at 70 with a creatinine of 2.5 and the patient was taken off the IV Lasix and switch to oral Lasix. Sodium is at 142 and a potassium level is at 5.9. No other significant events overnight. No altered mentation. No chest pain. Remains on anticoagulation with Eliquis 5 mg by mouth twice a day. On today's evaluation of 06/30/2023, the patient is being seen for a follow-up. The patient continues to struggle with her breathing. Earlier today, the patient was noted to be more somnolent and sleepy. Based on that, a blood gas was done and the patient was found to have a pH of 7.26 and the P CO2 of 87 and pO2 of 61. Based on that, the patient was placed on a BiPAP at a pressure of 10/5 cm of water. The patient continues to diurese. Creatinine is up to 2.4 with a BUN of 79. The findings of the case. Sodium is at 142. Ultrasound of the kidneys were done and there is chronic mild medical renal disease. No solid kidney masses. No evidence of hydronephrosis. No kidney stones. The patient continues to be on DuoNeb neb blotchiness on the clock. The patient is also on Symbicort. The patient is receiving IV Solu-Medrol 40 mg on a daily basis. In terms of diuresis, the patient is on oral Lasix 40 mg by mouth twice a day. Rest of the medications unchanged. On 07/01/2023, the patient is being seen for a follow-up. Unfortunately, she still having episodes of lethargy and increased sleepiness and diminished level of consciousness. Earlier this morning she was fine and subsequently she became more lethargic. I suspect that the patient is having some episodes of hypercapnic respiratory failure. She is on enough being placed on a BiPAP. She remains on the same treatment for now. She is on DuoNeb updrafts and IV Solu- Medrol 40 mg every 24-hour speech is also on oral Lasix 40 mg twice a day. A repeat chest x-ray was done and the chest x-ray findings are showing carotid negative pulmonary vessel congestion. There is moderate right and small left- sided pleural effusion. She has significant kyphoscoliosis of the chest. Labs from today shows improvement of the scope 9.4, he was sent 0.9, sodium levels of 142, potassium is at 5, BUN is at 96 with creatinine of 2.4. UA is negative. Troponins of 0.06. On 07/02/2023, the patient is sitting up on a chair and she is wearing the BiPAP. She is stable. She is communicating. She is arousable. She has an acute kidney injury on top of her chronic kidney disease. 11 function slightly worse compared to yesterday. On today's blood work, the sodium level is at 142, BUN is at 102 with a creatinine of 2.6. Potassium levels at 5.0. UA negative. The patient remains on bronchodilators. The patient remains on IV Solu-Medrol. She is also on Lasix 40 mg by mouth twice a day. Nephrology is on the case. The patient is seen today 07/03/2023 in follow-up on the regular medical floor. She is currently sitting up in bed. Awake and alert in no acute distress. She is currently maintaining O2 saturations in the 90s on 3 L/m per nasal cannula. She is alternating with BiPAP 12/5 and 40% FiO2. Sodium 146. Potassium 4.3. Bicarb 39. BUN 103. Creatinine 2.3. Glucose 167. Chest x-ray reveals stable bibasilar infiltrates with small effusions and cardiomegaly. She is continued on Symbicort and albuterol. Remains on IV Solu-Medrol. Remains on oral diuretics. Anticoagulated with Eliquis. The patient is seen today 07/04/2023 in follow-up on the regular medical floor. She is awake and alert in no acute distress. Resting fairly comfortably in bed. She is more alert today. Talking with her family. She is utilizing the BiPAP 16/5 on 40% FiO2 while resting and at nighttime. She remains afebrile. Hemodynamically stable. Count 7.6. Hemoglobin 10.5. Platelets 131. Sodium 142. Potassium 4.1. Bicarb 41. BUN 118. Creatinine 1.96. Glucose 135. ProBNP 28,100. She's been initiated on Diamox. Continued on DuoNeb inhalations, Symbicort, Solu-Medrol and Singulair. Anticoagulated with Eliquis. The patient is seen today 07/05/2023 in follow-up on the regular medical floor. She is currently resting comfortably in bed. Currently on BiPAP 16/5 on 40% FiO2. Chest x-ray showing improvement of the congestive heart failure. Less pulmonary venous congestion. Sodium 143. Potassium 3.8. Bicarb 39. BUN 106. Creatinine 2.09. Glucose 177. She remains on DuoNeb inhalations, Symbicort, Solu-Medrol and Singulair. Anticoagulated with Eliquis. Continued on Lasix and Diamox. Making adequate urine. The patient is seen today 07/06/2023 in follow-up on the regular medical floor. She is currently resting in bed on 3 L nasal cannula. Off the BiPAP which she had been wearing 16/5 and 40% FiO2. Denies any worsening shortness of breath, cough or congestion. Sodium 143. Potassium 3.5. Bicarb 44. BUN 89. Creatinine 1.76. Glucose 184. She remains on Diamox and Lasix. Urine output 1600 ML's today thus far. Continued on DuoNeb inhalations, Symbicort, Solu- Medrol. Anticoagulated with Eliquis. Arterial blood gases obtained on 32% FiO2 revealed a P O2 of 64, pCO2 73 and a pH of 7.36. Objective - Vital Signs Vital signs: Vital Signs Temp 97.5 F L 07/06/23 08:47 Pulse 76 07/06/23 13:00 Resp 16 07/06/23 13:00 BP 130/72 07/06/23 13:00 Pulse Ox 94 L 07/06/23 13:00 FiO2 40 07/06/23 00:48 Intake & Output 07/05/23 07/06/23 07/06/23 18:59 06:59 18:59 Intake Total 1010 250 Output Total 1600 325 Balance 1010 -1600 -75 Intake: IV 10 Invasive Line 3 10 Oral 1010 240 Output: Urine 1600 325 Other: Voiding Method Bedside Commode # Voids 1 # Bowel Movements 1 - Exam GENERAL EXAM: Alert, 78-year-old female, resting in bed, on 3 L nasal cannula alternating with BiPAP 16/5 and 40% FiO2, in no apparent distress. HEAD: Normocephalic. EYES: Normal reaction of pupils, equal size. NOSE: Clear with pink turbinates. THROAT: No erythema or exudates. NECK: No masses, no JVD. CHEST: No chest wall deformity. LUNGS: Equal air entry with crackles in the bilateral bases. CVS: S1 and S2 normal with no audible murmur, regular rhythm. ABDOMEN: No hepatosplenomegaly, normal bowel sounds, no guarding or rigidity. SPINE: No scoliosis or deformity SKIN: No rashes CENTRAL NERVOUS SYSTEM: No focal deficits, tone is normal in all 4 extremities. EXTREMITIES: There is no peripheral edema. No clubbing, no cyanosis. Peripheral pulses are intact. - Labs CBC & Chem 7: 07/04/23 08:38 07/06/23 07:30 Labs: Abnormal Lab Results - Last 24 Hours (Table) 07/05/23 07/05/23 07/06/23 Range/Units 16:32 20:07 07:30 ABG pCO2 (35-45) mmHg ABG pO2 (83-108) mmHg ABG HCO3 (21-25) mmol/L ABG Total CO2 (19-24) mmol/L ABG O2 Saturation (94-97) % Chloride 93 L (98-107) mmol/L Carbon Dioxide 44 H* (22-30) mmol/L BUN 89 H (7-17) mg/dL Creatinine 1.76 H (0.52-1.04) mg/dL POC Glucose (mg/dL) 298 H 253 H (70-110) mg/dL Magnesium 2.6 H (1.6-2.3) mg/dL 07/06/23 07/06/23 Range/Units 11:11 11:26 ABG pCO2 73 H* (35-45) mmHg ABG pO2 64 L (83-108) mmHg ABG HCO3 41 H* (21-25) mmol/L ABG Total CO2 44 H (19-24) mmol/L ABG O2 Saturation 93.2 L (94-97) % Chloride (98-107) mmol/L Carbon Dioxide (22-30) mmol/L BUN (7-17) mg/dL Creatinine (0.52-1.04) mg/dL POC Glucose (mg/dL) 184 H (70-110) mg/dL Magnesium (1.6-2.3) mg/dL Assessment and Plan Assessment: Acute on chronic hypoxemic respiratory failure, secondary to a combination of exacerbation of systolic congestive heart failure/biventricular heart failure as the patient has LV dysfunction with an ejection fraction of 35% addition to valvular insufficiency involving the mitral and aortic valve and severe tricuspid regurgitation with severe pulmonary hypertension. The RV is also severely dilated. Patient also has a component of acute COPD exacerbation. Alternating 3 L nasal cannula with BiPAP support 16/5 on 40% FiO2. Chest x-ray showing improved aeration and less pulmonary venous congestion. Her blood gases today revealed a PaO2 of 64, pCO2 73, pH 7.36. Remains on Diamox. Severe oxygen dependent COPD, and the patient has chronic hypoxic respiratory failure normally on 3 L Chronic hypoxemic respiratory failure secondary to above Severe pulmonary hypertension Acute on top of chronic kidney disease stage IV, patient is currently on Diamox and Lasix Anemia of chronic disease Paroxysmal atrial fibrillation, anticoagulated on Eliquis Chronically elevated troponins History of permanent pacemaker implantation, currently ventricularly paced Remote history of breast cancer, with previous lumpectomy and radiation Nonocclusive coronary artery disease Previous history of atrial fibrillation Plan: The patient was seen and evaluated ABGs, labs and medications reviewed May qualify for AVAPS device at discharge Continue the current treatment plan Remains on Diamox, off Lasix Nephrology is following Titrate the FiO2 as tolerated We will continue to follow I have personally seen and examined the patient, performed the documentation and the assessment and plan as written. Number of minutes spent on the visit: 10.
[2023-07-06 16:51] LABS: Glucose,Whole Blood 238 mg/dL (70-110)
[2023-07-06 20:30] LABS: Glucose,Whole Blood 311 mg/dL (70-110)
[2023-07-06] MEDS: LORATADINE 10 MG TAB PO SCH (20:41)
[2023-07-06] MEDS: METOPROLOL SUCCINATE (ER) 25 MG TAB.ER.24H PO SCH (20:41)
[2023-07-06] MEDS: MONTELUKAST 10 MG TAB PO SCH (20:41)
--- NOTE | 2023-07-06 20:53 | P.PN ---
Subjective Progress Note Date: 07/06/23 Patient is evaluated today resting in bed on the stepdown unit. Remains on 3L of oxygen at this time. Patient is short of breath at rest with significantly decreased aeration. Remains on IV diamox BID, inhaled and systemic steroids. Lasix has been stopped today. Labs today show improving renal function with BUN 89 creatinine 1.76. Sodium 143, potassium 3.5. Chloride 93 and CO2 44. Blood glucose 300s. Procalcitonin was repeated yesterday at 0.15. Blood gases today show mildly improved pCO2 at 73. Review of Systems Constitutional: Denied any fatigue denied any fever. Cardio vascular: denied any chest pain, palpitations Gastrointestinal: denied any nausea, vomiting, diarrhea Pulmonary: Denied any shortness of breath cough Neurologic denied any new focal deficits All inpatient medications were reviewed and appropriate changes in these medications as dictated in the interval history and assessment and plan. PHYSICAL EXAMINATION: GENERAL: The patient is alert and oriented x3, not in any acute distress. Well developed, well nourished. HEENT: Pupils are round and equally reacting to light. EOMI. No scleral icterus. No conjunctival pallor. Normocephalic, atraumatic. No pharyngeal erythema. No thyromegaly. CARDIOVASCULAR: S1 and S2 present. No murmurs, rubs, or gallops. PULMONARY: Decreased aeration and scattered wheezing. ABDOMEN: Soft, nontender, nondistended, normoactive bowel sounds. No palpable organomegaly. MUSCULOSKELETAL: No joint swelling or deformity. EXTREMITIES: No cyanosis, clubbing, or pedal edema. NEUROLOGICAL: Gross neurological examination did not reveal any focal deficits. Diffuse weakness. SKIN: No rashes. Assessment Acute on chronic congestive heart failure diastolic dysfunction off oral lasix at this time, continue with strict intake and output monitoring. Acute on chronic hypoxic respiratory failure multifactorial COPD, CHF exacerbation patient currently on 3L of oxygen. Severe COPD with chronic hypoxia on 3 L of oxygen at baseline Acute urinary retention on flomax and recommending to bladder scan Q6h and monitor for need for straight catheterization and urinary retention. Steroid induced hyperglycemia continue with accuchecks ACHS sliding scale insulin and recommending to add levemir at HS Elevated troponin secondary to type II IA hypoxia Transient hyperkalemia currently improved at 3.5. Acute kidney injury secondary to ATN and cardiorenal syndrome. Patient contineus on diamox and lasix being held at this time. Continues on low sodium diet and 1500 cc fluid restriction. Nephrology monitoring closely. Repeat labs in AM Chronic kidney disease stage IV nephrology following closely. Paroxysmal atrial fibrillation on anticoagulation with eliquis BID. Sick 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 GI prophylaxis DVT prophylaxis as mentioned above Full Code The impression and plan of care has been dictated by Anne Marie Bell, Nurse Practitioner as directed. Dr. Sekou MD I have performed a history and physical examination and medical decision making of this patient, discussed the same with the dictator, and agree with the dictators assessment and plan as written, documented as a scribe. Based on total visit time, I have performed more than 50% of this visit. Objective - Vital Signs Vital signs: Vital Signs Temp 98.1 F 07/05/23 20:00 Pulse 72 07/06/23 08:19 Resp 18 07/06/23 04:00 BP 116/79 07/06/23 04:00 Pulse Ox 96 07/06/23 04:00 FiO2 40 07/06/23 00:48 Intake & Output 07/05/23 07/06/23 07/06/23 18:59 06:59 18:59 Intake Total 1010 Output Total 1600 Balance 1010 -1600 Intake: Oral 1010 Output: Urine 1600 Other: # Voids 1 - Labs CBC & Chem 7: 07/04/23 08:38 07/06/23 07:30 Labs: Abnormal Lab Results - Last 24 Hours (Table) 07/05/23 07/05/23 07/05/23 Range/Units 08:01 11:16 16:32 Chloride 92 L (98-107) mmol/L Carbon Dioxide 39 H (22-30) mmol/L BUN 106 H* (7-17) mg/dL Creatinine 2.09 H (0.52-1.04) mg/dL Glucose 177 H (74-99) mg/dL POC Glucose (mg/dL) 216 H 298 H (70-110) mg/dL Magnesium 2.7 H (1.6-2.3) mg/dL 07/05/23 Range/Units 20:07 Chloride (98-107) mmol/L Carbon Dioxide (22-30) mmol/L BUN (7-17) mg/dL Creatinine (0.52-1.04) mg/dL Glucose (74-99) mg/dL POC Glucose (mg/dL) 253 H (70-110) mg/dL Magnesium (1.6-2.3) mg/dL Assessment and Plan Time with Patient: Less than 30
[2023-07-06] MEDS: INSULIN DETEMIR (LEVEMIR) 100 UNIT/ML SYR SQ SCH (22:34)
[2023-07-07] MEDS: ACETAMINOPHEN TAB 325 MG TAB PO PRN (01:48)
[2023-07-07 06:08] LABS: Glucose,Whole Blood 74 mg/dL (70-110)
[2023-07-07] MEDS: INSULIN ASPART (NovoLOG) 100 UNIT/ML VIAL SQ SCH ×4 (06:31→20:09)
[2023-07-07] MEDS: ALBUTEROL NEBULIZED 2.5 MG/3 ML INHALATION SCH ×4 (07:56→21:22)
[2023-07-07] MEDS: SYMBICORT 160-4.5 MCG INHALER INHALATION SCH ×2 (07:56→21:22)
[2023-07-07 08:24] LABS: Anisocytosis Slight; Basophils % (A) 0 %; Eosinophils # (A) 0.1 k/uL (0-0.7); Eosinophils % (A) 1 %; HCT 35.8 % (34.0-46.0); HGB 10.7 gm/dL (11.4-16.0); Hypochromasia Marked; Lymphocytes # (A) 0.6 k/uL (1.0-4.8); Lymphocytes % (A) 6 %; MCH 29.3 pg (25.0-35.0); MCV 97.8 fL (80.0-100.0); Macrocytosis Slight; Mean Platelet Volume 9.9; Monocytes # (A) 0.7 k/uL (0-1.0); Monocytes % (A) 7 %; Neutrophils # (A) 8.7 k/uL (1.3-7.7); Neutrophils % (A) 86 %; Platelet Count 130 k/uL (150-450); RBC 3.66 m/uL (3.80-5.40); RDW 17.6 % (11.5-15.5); WBC 10.1 k/uL (3.8-10.6)
--- NOTE | 2023-07-07 08:30 | XR ---
EXAMINATION TYPE: XR chest 1V DATE OF EXAM: 07/07/2023 COMPARISON: 07/05/2023 HISTORY: 78 year-old female shortness of breath, hypoxia TECHNIQUE: Single frontal view of the chest is obtained. FINDINGS: Left anterior chest wall pacemaker generator with right atrial, right ventricular, and cor onary sinus leads. Heart is moderately enlarged. Ongoing small right pleural effusion with patchy mid and lower lung opacities. Probable trace left effusion. IMPRESSION: Overall stable exam with moderate cardiomegaly and small right greater than left pleural effusions with adjacent atelectasis and/or consolidation. Probably sequela of CHF.
[2023-07-07 08:41] LABS: African American GFR (CKD) 32 (>60 ml/min/1.73 sqM); Blood Urea Nitrogen 79 mg/dL (7-17); Calcium 8.9 mg/dL (8.4-10.2); Chloride 95 mmol/L (98-107); Glucose 107 mg/dL (74-99); Magnesium 2.5 mg/dL (1.6-2.3); Non-African American GFR(CKD) 28 (>60 ml/min/1.73 sqM); Potassium 3.8 mmol/L (3.5-5.1); Sodium 140 mmol/L (137-145)
[2023-07-07 08:48] LABS: Anion Gap 6 mmol/L; Carbon Dioxide 39 mmol/L (22-30)
[2023-07-07] MEDS: CHOLECALCIFEROL 25 MCG (1000 IU) TABLET PO SCH (09:22)
[2023-07-07] MEDS: FERROUS SULFATE 325 MG TAB PO SCH (09:22)
[2023-07-07] MEDS: allopurinoL 300 MG TAB PO SCH (09:22)
[2023-07-07] MEDS: APIXABAN 5 MG TAB PO SCH ×2 (09:23→20:09)
[2023-07-07] MEDS: methylPREDNISolone SOD SUCCI 40 MG/ML 1 ML VIAL IV SCH (09:23)
[2023-07-07] MEDS: FAMOTIDINE 20 MG TAB PO SCH (09:23)
[2023-07-07] MEDS: TAMSULOSIN 0.4 MG CAP.ER.24H PO SCH (09:23)
[2023-07-07] MEDS ORDERED: POTASSIUM CHLORIDE ER 20 MEQ TAB.ER PO STA (10:49)
--- NOTE | 2023-07-07 10:50 | P.PN ---
Subjective Patient is seen in follow-up for acute kidney injury on chronic kidney disease. Renal function stable. Sitting up in bed. On nasal cannula. Has been voiding. Nonoliguric. Oral intake fair. No vomiting or diarrhea. Vital signs are stable. General: No acute distress. HEENT: Head exam is unremarkable. On nasal cannula. LUNGS: No audible rhonchi or wheezes. HEART: Rate and Rhythm are regular. ABDOMEN: Nontender. EXTREMITITES: Trace edema. Objective - Vital Signs Vital signs: Vital Signs Temp 98.2 F 07/07/23 09:13 Pulse 66 07/07/23 09:13 Resp 22 07/07/23 09:13 BP 114/59 07/07/23 09:13 Pulse Ox 94 L 07/07/23 09:13 FiO2 40 07/07/23 04:28 Intake & Output 07/06/23 07/07/23 07/07/23 18:59 06:59 18:59 Intake Total 618 30 110 Output Total 875 950 Balance -257 -920 110 Intake: IV 20 30 Invasive Line 3 20 20 Invasive Line 4 10 Oral 598 110 Output: Urine 875 950 Other: Voiding Method Bedside Commode External Catheter External Catheter # Voids 1 # Bowel Movements 1 - Labs CBC & Chem 7: 07/07/23 07:39 07/07/23 07:39 Labs: Abnormal Lab Results - Last 24 Hours (Table) 07/06/23 07/06/23 07/06/23 Range/Units 11:11 11:26 16:50 RBC (3.80-5.40) m/uL Hgb (11.4-16.0) gm/dL MCHC (31.0-37.0) g/dL RDW (11.5-15.5) % Plt Count (150-450) k/uL Neutrophils # (1.3-7.7) k/uL Lymphocytes # (1.0-4.8) k/uL ABG pCO2 73 H* (35-45) mmHg ABG pO2 64 L (83-108) mmHg ABG HCO3 41 H* (21-25) mmol/L ABG Total CO2 44 H (19-24) mmol/L ABG O2 Saturation 93.2 L (94-97) % Chloride (98-107) mmol/L Carbon Dioxide (22-30) mmol/L BUN (7-17) mg/dL Creatinine (0.52-1.04) mg/dL Glucose (74-99) mg/dL POC Glucose (mg/dL) 184 H 238 H (70-110) mg/dL Magnesium (1.6-2.3) mg/dL 07/06/23 07/07/23 07/07/23 Range/Units 20:29 07:39 07:39 RBC 3.66 L (3.80-5.40) m/uL Hgb 10.7 L (11.4-16.0) gm/dL MCHC 30.0 L (31.0-37.0) g/dL RDW 17.6 H (11.5-15.5) % Plt Count 130 L (150-450) k/uL Neutrophils # 8.7 H (1.3-7.7) k/uL Lymphocytes # 0.6 L (1.0-4.8) k/uL ABG pCO2 (35-45) mmHg ABG pO2 (83-108) mmHg ABG HCO3 (21-25) mmol/L ABG Total CO2 (19-24) mmol/L ABG O2 Saturation (94-97) % Chloride 95 L (98-107) mmol/L Carbon Dioxide 39 H (22-30) mmol/L BUN 79 H (7-17) mg/dL Creatinine 1.72 H (0.52-1.04) mg/dL Glucose 107 H (74-99) mg/dL POC Glucose (mg/dL) 311 H (70-110) mg/dL Magnesium 2.5 H (1.6-2.3) mg/dL Assessment and Plan Plan: Assessment: 1. Acute kidney injury secondary to ATN secondary to cardiorenal syndrome. No hydronephrosis noted on renal ultrasound. Right kidney atrophic. UA fairly benign. Renal function stable. Elevated BUN partially due to steroids - trending down. 2. Chronic kidney disease stage IIIB with baseline creatinine 1.5-1.8. Suspect nephrosclerosis. 3. Acute on chronic systolic CHF with ejection fraction of 35-40% with moderate mitral regurgitation, mild to moderate aortic insufficiency and severe tricuspid regurgitation and pulmonary hypertension. 4. Acute hypoxic respiratory failure. 5. Volume overload. Improving with diuresis. 6. Mild hypernatremia from lack of oral water intake. Improved. 7. Acute on chronic hypercapnic respiratory failure with metabolic alkalosis. 8. Hypokalemia from diuresis. Magnesium normal. Replaced. Better. Plan: Maintain Diamox for another day. Resume Lasix tomorrow. Replace potassium. Encourage oral intake. Avoid nephrotoxins. Low-salt diet and 1500 mL fluid restriction. Continue to monitor renal function and urine output. Repeat labs in the morning.
[2023-07-07 11:19] LABS: Glucose,Whole Blood 217 mg/dL (70-110)
--- NOTE | 2023-07-07 13:41 | P.PN ---
Subjective Progress Note Date: 07/07/23 I am seeing this patient in new consultation today 06/26/2023 in the emergency room as she has progressively become more short of breath over the last couple weeks. Patient is a 78-year-old white female with past medical history significant for oxygen dependent COPD, CHF, chronic kidney disease, atrial fibrillation, permanent pacemaker, breast cancer with previous lumpectomy and radiation , among other things. She follows with a Dr. Ocampo, in [place], and has moved to the area within the last year. Patient states that she's had progressively worsening shortness of breath over the last couple weeks. She is normally oxygen dependent on 3 L/m nasal cannula. Her shortness of breath is mostly exertional. It's accompanied with chest tightness. She's had a dry nonproductive cough. Denies any fevers. Denies sick contacts. She also states that over weekend, she went to [place] with her family, and did not want to take her Lasix. She held her Lasix on her own from to Monday. Her breathing did get worse. She also admits increased lower extremity swelling. Patient is currently sitting up in bed, on 3 L/m nasal cannula, in no acute distress. Chest x-ray on arrival showed cardiomegaly with bilateral pleural effusions right greater than left and likely bibasilar compressive atelectasis, underlying infectious process could not be ruled out. Most recent echocardiogram from October of this year shows borderline LV systolic function with an EF of 50%. Severe pulmonary hypertension with a RVSP of 67 mmHg, severe right ventricular dilation and moderate tricuspid regurgitation. CBC on arrival showed a WBC count of 6.5, hemoglobin 10.6, hematocrit 35.4, platelets 190. BMP on arrival shows sodium 145, potassium 4.4, chloride 98, serum bicarb 39, BUN 40, creatinine 1.77, glucose 124. Troponins were elevated but flat. NT proBNP was significantly elevated 19,700. ECG on arrival showed a ventricular paced rhythm. Hemodynamically stable. today's evaluation of 06/27/2023, the patient is still having difficulty breathing. She remains on oxygen 5 L/m nasal cannula. Repeat chest x-ray was doneand it showed cardiomegaly and stable perihilar and bibasilar interstitial markings along with small bilateral pleural effusion consistent with CHF. Echocardiogram was done yesterday and the patient was found to have a left insular ejection fraction of 35-40% with moderate MR, [id number] aortic regurgitation, severe tricuspid regurgitation and severe pulmonary hypertension. Labs from today are still pending. Creatinine was elevated at 1.77. Her pr oBNP level was 19,700 and the patient also had troponin levels of 0.06 and 0.05 and 0.06 respectively. The viral screen was negative including Covid 19. She is on Symbicort. She is on DuoNeb [facility]. She is on IV Solu-Medrol 60 mg every 6 hours. She is on Lasix 40 mg every 12 hours. She is also on anticoagulation with Eliquis. The fluid balance has not been accurately measured. She seems to be in a negative fluid balance for now. On 06/28/2023, the patient is being seen for a follow-up. Still having increased shortness of breath and he she continues to be on oxygen 5 L/m nasal cannula. She is bronchospastic and wheezy. She remains on bronchodilators. She remains on steroids. She is also on diuretics and the patient is on Lasix 40 mg IV every 12 hours. No major improvement since yesterday. She has COPD and biventricular heart failure. Labs show a BUN of 59 with a creatinine of 2.2. Sodium level is at 145, bili cigars at 9 with a hemoglobin of 9.9. The fluid balance has been negative. Echo measurements of the input output has not been established. She remains on anticoagulation with Eliquis 5 mg by mouth twice a day. Rest of the home medications have been resumed. On today's evaluation of , the patient is feeling better. She is short of breath. She remains on a combination of bronchodilators, steroids, and diuretics and the patient remains on Lasix 40 mg by mouth twice a day. She remains on IV Solu-Medrol 60 g every 6 hours. She is on 4 L of oxygen nasal cannula with a pulse ox of 90%. She is able to sit up on a chair. Her white cell count is at 8.7 with a hemoglobin of 10.5 and a platelet count of 1. There is a component of an acute kidney injury. BUN is at 70 with a creatinine of 2.5 and the patient was taken off the IV Lasix and switch to oral Lasix. Sodium is at 142 and a potassium level is at 5.9. No other significant events overnight. No altered mentation. No chest pain. Remains on anticoagulation with Eliquis 5 mg by mouth twice a day. On today's evaluation of 06/30/2023, the patient is being seen for a follow-up. The patient continues to struggle with her breathing. Earlier today, the patient was noted to be more somnolent and sleepy. Based on that, a blood gas was done and the patient was found to have a pH of 7.26 and the P CO2 of 87 and pO2 of 61. Based on that, the patient was placed on a BiPAP at a pressure of 10/5 cm of water. The patient continues to diurese. Creatinine is up to 2.4 with a BUN of 79. The findings of the case. Sodium is at 142. Ultrasound of the kidneys were done and there is chronic mild medical renal disease. No solid kidney masses. No evidence of hydronephrosis. No kidney stones. The patient continues to be on DuoNeb neb blotchiness on the clock. The patient is also on Symbicort. The patient is receiving IV Solu-Medrol 40 mg on a daily basis. In terms of diuresis, the patient is on oral Lasix 40 mg by mouth twice a day. Rest of the medications unchanged. On 07/01/2023, the patient is being seen for a follow-up. Unfortunately, she still having episodes of lethargy and increased sleepiness and diminished level of consciousness. Earlier this morning she was fine and subsequently she became more lethargic. I suspect that the patient is having some episodes of hypercapnic respiratory failure. She is on enough being placed on a BiPAP. She remains on the same treatment for now. She is on DuoNeb updrafts and IV Solu- Medrol 40 mg every 24-hour speech is also on oral Lasix 40 mg twice a day. A repeat chest x-ray was done and the chest x-ray findings are showing carotid negative pulmonary vessel congestion. There is moderate right and small left- sided pleural effusion. She has significant kyphoscoliosis of the chest. Labs from today shows improvement of the scope 9.4, he was sent 0.9, sodium levels of 142, potassium is at 5, BUN is at 96 with creatinine of 2.4. UA is negative. Troponins of 0.06. On 07/02/2023, the patient is sitting up on a chair and she is wearing the BiPAP. She is stable. She is communicating. She is arousable. She has an acute kidney injury on top of her chronic kidney disease. 11 function slightly worse compared to yesterday. On today's blood work, the sodium level is at 142, BUN is at 102 with a creatinine of 2.6. Potassium levels at 5.0. UA negative. The patient remains on bronchodilators. The patient remains on IV Solu-Medrol. She is also on Lasix 40 mg by mouth twice a day. Nephrology is on the case. The patient is seen today 07/03/2023 in follow-up on the regular medical floor. She is currently sitting up in bed. Awake and alert in no acute distress. She is currently maintaining O2 saturations in the 90s on 3 L/m per nasal cannula. She is alternating with BiPAP 12/5 and 40% FiO2. Sodium 146. Potassium 4.3. Bicarb 39. BUN 103. Creatinine 2.3. Glucose 167. Chest x-ray reveals stable bibasilar infiltrates with small effusions and cardiomegaly. She is continued on Symbicort and albuterol. Remains on IV Solu-Medrol. Remains on oral diuretics. Anticoagulated with Eliquis. The patient is seen today 07/04/2023 in follow-up on the regular medical floor. She is awake and alert in no acute distress. Resting fairly comfortably in bed. She is more alert today. Talking with her family. She is utilizing the BiPAP 16/5 on 40% FiO2 while resting and at nighttime. She remains afebrile. Hemodynamically stable. Count 7.6. Hemoglobin 10.5. Platelets 131. Sodium 142. Potassium 4.1. Bicarb 41. BUN 118. Creatinine 1.96. Glucose 135. ProBNP 28,100. She's been initiated on Diamox. Continued on DuoNeb inhalations, Symbicort, Solu-Medrol and Singulair. Anticoagulated with Eliquis. The patient is seen today 07/05/2023 in follow-up on the regular medical floor. She is currently resting comfortably in bed. Currently on BiPAP 16/5 on 40% FiO2. Chest x-ray showing improvement of the congestive heart failure. Less pulmonary venous congestion. Sodium 143. Potassium 3.8. Bicarb 39. BUN 106. Creatinine 2.09. Glucose 177. She remains on DuoNeb inhalations, Symbicort, Solu-Medrol and Singulair. Anticoagulated with Eliquis. Continued on Lasix and Diamox. Making adequate urine. The patient is seen today 07/06/2023 in follow-up on the regular medical floor. She is currently resting in bed on 3 L nasal cannula. Off the BiPAP which she had been wearing 16/5 and 40% FiO2. Denies any worsening shortness of breath, cough or congestion. Sodium 143. Potassium 3.5. Bicarb 44. BUN 89. Creatinine 1.76. Glucose 184. She remains on Diamox and Lasix. Urine output 1600 ML's today thus far. Continued on DuoNeb inhalations, Symbicort, Solu- Medrol. Anticoagulated with Eliquis. Arterial blood gases obtained on 32% FiO2 revealed a P O2 of 64, pCO2 73 and a pH of 7.36. The patient is seen today 07/07/2023 in follow-up on the regular medical floor. She is awake and alert in no acute distress. Sitting up in bed. Currently on 3 L/m per nasal cannula. She states she did wear the BiPAP throughout the night 16/5 and 40% FiO2. Today's chest x-ray reveals overall stable exam with moderate cardiomegaly and small right greater than left pleural effusions with adjacent atelectasis. White count 10.1. Hemoccult 1110.7. Platelets 130. Sodium 140. Potassium 3.8. Bicarb 39. BUN 80. Creatinine 1.72. Glucose 107. She is continued on DuoNeb inhalations, Symbicort, Solu-Medrol. Anticoagulated with Eliquis. Objective - Vital Signs Vital signs: Vital Signs Temp 98.0 F 07/07/23 11:04 Pulse 70 07/07/23 13:10 Resp 20 07/07/23 11:04 BP 106/68 07/07/23 11:04 Pulse Ox 94 L 07/07/23 11:04 FiO2 40 07/07/23 04:28 Intake & Output 07/06/23 07/07/23 07/07/23 18:59 06:59 18:59 Intake Total 618 30 220 Output Total 875 950 Balance -257 -920 220 Intake: IV 20 30 Invasive Line 3 20 20 Invasive Line 4 10 Oral 598 220 Output: Urine 875 950 Other: Voiding Method Bedside Commode External Catheter External Catheter # Voids 1 # Bowel Movements 1 1 - Exam GENERAL EXAM: Alert, 78-year-old female, on 3 L nasal cannula, in no distress. HEAD: Normocephalic. EYES: Normal reaction of pupils, equal size. NOSE: Clear with pink turbinates. THROAT: No erythema or exudates. NECK: No masses, no JVD. CHEST: No chest wall deformity. LUNGS: Equal air entry with crackles in the bilateral bases. CVS: S1 and S2 normal with no audible murmur, regular rhythm. ABDOMEN: No hepatosplenomegaly, normal bowel sounds, no guarding or rigidity. SPINE: No scoliosis or deformity SKIN: No rashes CENTRAL NERVOUS SYSTEM: No focal deficits, tone is normal in all 4 extremities. EXTREMITIES: There is no peripheral edema. No clubbing, no cyanosis. Periph eral pulses are intact. - Labs CBC & Chem 7: 07/07/23 07:39 07/07/23 07:39 Labs: Abnormal Lab Results - Last 24 Hours (Table) 07/06/23 07/06/23 07/07/23 Range/Units 16:50 20:29 07:39 RBC (3.80-5.40) m/uL Hgb (11.4-16.0) gm/dL MCHC (31.0-37.0) g/dL RDW (11.5-15.5) % Plt Count (150-450) k/uL Neutrophils # (1.3-7.7) k/uL Lymphocytes # (1.0-4.8) k/uL Chloride 95 L (98-107) mmol/L Carbon Dioxide 39 H (22-30) mmol/L BUN 79 H (7-17) mg/dL Creatinine 1.72 H (0.52-1.04) mg/dL Glucose 107 H (74-99) mg/dL POC Glucose (mg/dL) 238 H 311 H (70-110) mg/dL Magnesium 2.5 H (1.6-2.3) mg/dL 12/15/23 12/15/23 Range/Units 07:39 11:17 RBC 3.66 L (3.80-5.40) m/uL Hgb 10.7 L (11.4-16.0) gm/dL MCHC 30.0 L (31.0-37.0) g/dL RDW 17.6 H (11.5-15.5) % Plt Count 130 L (150-450) k/uL Neutrophils # 8.7 H (1.3-7.7) k/uL Lymphocytes # 0.6 L (1.0-4.8) k/uL Chloride (98-107) mmol/L Carbon Dioxide (22-30) mmol/L BUN (7-17) mg/dL Creatinine (0.52-1.04) mg/dL Glucose (74-99) mg/dL POC Glucose (mg/dL) 217 H (70-110) mg/dL Magnesium (1.6-2.3) mg/dL Assessment and Plan Assessment: Acute on chronic hypoxemic respiratory failure, secondary to a combination of exacerbation of systolic congestive heart failure/biventricular heart failure as the patient has LV dysfunction with an ejection fraction of 35% addition to valvular insufficiency involving the mitral and aortic valve and severe tricuspid regurgitation with severe pulmonary hypertension. The RV is also severely dilated. Patient also has a component of acute COPD exacerbation. Alternating 3 L nasal cannula with BiPAP support 16/ on 40% FiO2. Chest x-ray showing improved aeration and less pulmonary venous congestion. Her blood gases today revealed a PaO2 of 64, pCO2 73, pH 7.36. Remains on Diamox. Severe oxygen dependent COPD, and the patient has chronic hypoxic respiratory failure normally on 3 L Chronic hypoxemic respiratory failure secondary to above Severe pulmonary hypertension Acute on top of chronic kidney disease stage IV, patient is currently on Diamox and Lasix Anemia of chronic disease Paroxysmal atrial fibrillation, anticoagulated on Eliquis Chronically elevated troponins History of permanent pacemaker implantation, currently ventricularly paced Remote history of breast cancer, with previous lumpectomy and radiation Nonocclusive coronary artery disease Previous history of atrial fibrillation Plan: The patient was seen and evaluated Labs and medications reviewed May qualify for AVAPS device at discharge Continue the current treatment plan Titrate the FiO2 as tolerated We will continue to follow I have personally seen and examined the patient, performed the documentation and the assessment and plan as written. Number of minutes spent on the visit: 10.
--- NOTE | 2023-07-07 15:35 | P.PN ---
Subjective Progress Note Date: 07/07/23 Patient is evaluated today resting in bed on the stepdown unit. Remains on 3L of oxygen at this time. Patient is short of breath at rest with significantly decreased aeration. Remains on IV diamox BID, inhaled and systemic steroids. Lasix has been stopped today. Labs today show improving renal function with BUN 89 creatinine 1.76. Sodium 143, potassium 3.5. Chloride 93 and CO2 44. Blood glucose 300s. Procalcitonin was repeated yesterday at 0.15. Blood gases today show mildly improved pCO2 at 73. 07/07/23 Patient evaluated today on the stepdown unit. Working with physical therapy will be getting up to the chair today. States he breathing feels better than yesterday continues on 2L of oxygen. Chest x-ray this morning showing overall stable exam with moderate cardiomegaly and small right greater than left pleural effusions with adjacent atelectasis and/or consolidation probably a sequela of CHF. Neck is improved today sodium remains normal at 140, serum CO2 down to 39 BUN of 79, creatinine is 1.72. Continues on inhaled bronchodilators, inhaled steroids, systemic steroids. Review of Systems Constitutional: Denied any fatigue denied any fever. Cardio vascular: denied any chest pain, palpitations Gastrointestinal: denied any nausea, vomiting, diarrhea Pulmonary: Denied any shortness of breath cough Neurologic denied any new focal deficits All inpatient medications were reviewed and appropriate changes in these medications as dictated in the interval history and assessment and plan. PHYSICAL EXAMINATION: GENERAL: The patient is alert and oriented x3, not in any acute distress. Well developed, well nourished. HEENT: Pupils are round and equally reacting to light. EOMI. No scleral icterus. No conjunctival pallor. Normocephalic, atraumatic. No pharyngeal erythema. No thyromegaly. CARDIOVASCULAR: S1 and S2 present. No murmurs, rubs, or gallops. PULMONARY: Decreased aeration and scattered wheezing. ABDOMEN: Soft, nontender, nondistended, normoactive bowel sounds. No palpable organomegaly. MUSCULOSKELETAL: No joint swelling or deformity. EXTREMITIES: No cyanosis, clubbing, or pedal edema. NEUROLOGICAL: Gross neurological examination did not reveal any focal deficits. Diffuse weakness. SKIN: No rashes. Assessment Acute on chronic congestive heart failure diastolic dysfunction off oral lasix at this time with nephrology planning to resume Lasix tomorrow, continue with strict intake and output monitoring. Acute on chronic hypoxic respiratory failure multifactorial COPD, CHF exacerbation patient currently on 3L of oxygen. Severe COPD with chronic hypoxia on 3 L of oxygen at baseline pulmonary considering an AVAPs device on discharge Acute urinary retention on flomax and recommending to bladder scan Q6h and monitor for need for straight catheterization and urinary retention. Steroid induced hyperglycemia continue with accuchecks ACHS sliding scale ins ulin and recommending to add levemir at HS Elevated troponin secondary to type II [place] hypoxia Transient hyperkalemia currently improved at 3.5. Acute kidney injury secondary to ATN and cardiorenal syndrome. Patient contineus on diamox and lasix being held at this time. Continues on low sodium diet and 1500 cc fluid restriction. Nephrology monitoring closely. Repeat labs in AM Chronic kidney disease stage IV nephrology following closely. Paroxysmal atrial fibrillation on anticoagulation with eliquis BID. Sick 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 GI prophylaxis DVT prophylaxis as mentioned above Full Code The impression and plan of care has been dictated by Anne Marie Bell, Nurse Practitioner as directed. Dr. Sekou MD I have performed a history and physical examination and medical decision making of this patient, discussed the same with the dictator, and agree with the di ctators assessment and plan as written, documented as a scribe. Based on total visit time, I have performed more than 50% of this visit. Objective - Vital Signs Vital signs: Vital Signs Temp 98.0 F 07/07/23 11:04 Pulse 70 07/07/23 13:10 Resp 20 07/07/23 11:04 BP 106/68 07/07/23 11:04 Pulse Ox 94 L 07/07/23 11:04 FiO2 40 07/07/23 04:28 Intake & Output 07/06/23 07/07/23 07/07/23 18:59 06:59 18:59 Intake Total 618 30 220 Output Total 875 950 Balance -257 -920 220 Intake: IV 20 30 Invasive Line 3 20 20 Invasive Line 4 10 Oral 598 220 Output: Urine 875 950 Other: Voiding Method Bedside Commode External Catheter External Catheter # Voids 1 # Bowel Movements 1 1 - Labs CBC & Chem 7: 07/07/23 07:39 07/07/23 07:39 Labs: Abnormal Lab Results - Last 24 Hours (Table) 07/06/23 07/06/23 07/07/23 Range/Units 16:50 20:29 07:39 RBC (3.80-5.40) m/uL Hgb (11.4-16.0) gm/dL MCHC (31.0-37.0) g/dL RDW (11.5-15.5) % Plt Count (150-450) k/uL Neutrophils # (1.3-7.7) k/uL Lymphocytes # (1.0-4.8) k/uL Chloride 95 L (98-107) mmol/L Carbon Dioxide 39 H (22-30) mmol/L BUN 79 H (7-17) mg/dL Creatinine 1.72 H (0.52-1.04) mg/dL Glucose 107 H (74-99) mg/dL POC Glucose (mg/dL) 238 H 311 H (70-110) mg/dL Magnesium 2.5 H (1.6-2.3) mg/dL 07/07/23 07/07/23 Range/Units 07:39 11:17 RBC 3.66 L (3.80-5.40) m/uL Hgb 10.7 L (11.4-16.0) gm/dL MCHC 30.0 L (31.0-37.0) g/dL RDW 17.6 H (11.5-15.5) % Plt Count 130 L (150-450) k/uL Neutrophils # 8.7 H (1.3-7.7) k/uL Lymphocytes # 0.6 L (1.0-4.8) k/uL Chloride (98-107) mmol/L Carbon Dioxide (22-30) mmol/L BUN (7-17) mg/dL Creatinine (0.52-1.04) mg/dL Glucose (74-99) mg/dL POC Glucose (mg/dL) 217 H (70-110) mg/dL Magnesium (1.6-2.3) mg/dL Assessment and Plan Time with Patient: Less than 30
[2023-07-07 16:29] LABS: Glucose,Whole Blood 293 mg/dL (70-110)
[2023-07-07 19:39] LABS: Glucose,Whole Blood 202 mg/dL (70-110)
[2023-07-07 19:45] LABS: Appearance,Urine Cloudy (Clear); Bacteria,Urine Few /hpf; Bilirubin,Urine Negative (Negative); Blood,Urine Large (Negative); Color,Urine Light Yellow; Glucose,Urine (UA) Negative (Negative); Ketones,Urine Negative (Negative); Leukocyte Esterase,Urine Moderate (Negative); Mucus,Urine Rare /hpf; Nitrite,Urine Negative (Negative); Protein,Urine Trace (Negative); RBC,Urine 2 /hpf (0-5); Specific Gravity,Urine 1.017 (1.001-1.035); WBC,Urine 3 /hpf (0-5)
[2023-07-07] MEDS: METOPROLOL SUCCINATE (ER) 25 MG TAB.ER.24H PO SCH (20:08)
[2023-07-07] MEDS: MONTELUKAST 10 MG TAB PO SCH (20:08)
[2023-07-07] MEDS: LORATADINE 10 MG TAB PO SCH (20:08)
[2023-07-07] MEDS: INSULIN DETEMIR (LEVEMIR) 100 UNIT/ML SYR SQ SCH (20:09)
[2023-07-08 03:51] LABS: ABG Base Excess 15.3 mmol/L; ABG HCO3 39 mmol/L (21-25); ABG Oxygen Saturation 98.3 % (94-97); ABG PCO2 54 mmHg (35-45); ABG PH 7.47 (7.35-7.45); ABG PO2 92 mmHg (83-108); ABG TCO2 41 mmol/L (19-24); Allen Test Performed? Yes
[2023-07-08 06:23] LABS: Glucose,Whole Blood 61 mg/dL (70-110)
[2023-07-08] MEDS: DEXTROSE 50% SYRINGE 50 ML IVP PRN (06:25)
[2023-07-08 06:57] LABS: Glucose,Whole Blood 103 mg/dL (70-110)
[2023-07-08] MEDS: INSULIN ASPART (NovoLOG) 100 UNIT/ML VIAL SQ SCH ×4 (06:58→20:33)
[2023-07-08] MEDS: SYMBICORT 160-4.5 MCG INHALER INHALATION SCH ×2 (07:41→20:46)
[2023-07-08] MEDS: ALBUTEROL NEBULIZED 2.5 MG/3 ML INHALATION SCH ×4 (07:41→20:46)
[2023-07-08 08:38] LABS: African American GFR (CKD) 37 (>60 ml/min/1.73 sqM); Anion Gap 7 mmol/L; Blood Urea Nitrogen 74 mg/dL (7-17); Calcium 9.2 mg/dL (8.4-10.2); Carbon Dioxide 36 mmol/L (22-30); Chloride 100 mmol/L (98-107); Glucose 77 mg/dL (74-99); Magnesium 2.6 mg/dL (1.6-2.3); Non-African American GFR(CKD) 32 (>60 ml/min/1.73 sqM); Potassium 3.9 mmol/L (3.5-5.1); Sodium 143 mmol/L (137-145)
--- NOTE | 2023-07-08 09:32 | P.PN ---
Subjective 78-year-old patient with past medical history significant for congestive heart failure, chronic kidney disease, history of a defibrillation status post pacemaker in place, previous history of breast cancer status post lumpectomy and radiation, COPD on home oxygen, presented to the emergency department with complaints of progressive shortness of breath. At baseline patient weighs 3 L of oxygen, however patient has been having more exertional shortness of breath as well as chest pain. This was associated with nonproductive cough, patient denies associated fever, chills, nausea, vomiting with 6 contact. states her symptoms started 1 week ago around when she went up with the family. Patient states she had her Lasix during that time and started to feel short of breath since then. She has noticed increased swelling and lower extremity as well Workup initiated in ER included a chest x-ray which showed bilateral pleural effusions as well as cardiomegaly. Workup in ER included CBC which were WBC count of 6.5 hemoglobin 10.6 platelet 190, serum chemistry shows sodium 145 potassium 4.5 chloride 98 , serum bicarbonate 39 BU and 40 creatinine 1.77. Patient had elevated troponin which remained flat in ED, N-terminal proBNP was noted to be 19,700, EKG obtained in ER showed paced rhythm Patient to be admitted to medical floor with consultation from pulmonary medicine and cardiology 06/27/2023: Patient seen and evaluated bedside patient seen in ER room 1, waiting for bed, continue patient on diuresis the patient input from pulmonary medicine, blood work reviewed, serum chemistry reviewed creatinine 2.09. N- terminal proBNP 58993 06/28/2023: Patient seen and evaluated bedside, patient in room 485, patient does complain of shortness of breath, follow-up chest x-ray obtained shows slight improvement in pulmonary vascular congestion was on 6 L of oxygen weaned down to 4 L. Appreciate input from cardiology, WBC within normal limits, serum chemistry and renal function reviewed, creatinine 2.2 N-terminal proBNP 60479. Pro-calcitonin was negative. Once kidney function improved patient will benefit from ELLEN 06/29/2023: Patient seen and evaluated bedside, patient does complain of shortness of breath however she states her breathing has improved, continue patient on Lasix, blood work reviewed, potassium 5.9, Patient patient to be given insulin, dextrose, calcium gluconate and sodium bicarbonate. Continue patient on Lasix, oral potassium supplementation discontinued 06/30/2023: Patient seen and evaluated bedside, patient does complain of shortness of breath, blood work reviewed, potassium 5.5, lokelma given, follow- up on potassium levels. Renal function creatinine 2.4, nephrology following. Continue patient on Lasix transitioned from IV to oral. IV Solu-Medrol weaned down to daily as well 07/01/2023 Patient is still complaining from shortness of breath She is requiring BiPAP at night Currently she is on 4 L oxygen, at home she is on 3 L/m She still have bilateral congestion in the right pleural effusion of the chest x-ray Continued on oral Lasix 40 mg twice daily and Zaroxolyn 1 dose was given today Also she is on IV Solu-Medrol 40 mg once daily with pulmonary team following him closely On liquids for her chronic A. fib 07/02/2023 patient is breathing is somewhat controlled with episodes of worsening requiring BiPAP, currently she is on 3 L which is a much her home dose She still slightly confused and drowsy related to her metabolic encephalopathy. She is also being treated with oral Lasix and once daily IV Solu-Medrol. Her bladder scan was 440, [place] fax added and we will check it again. Her creatinine is slightly worse 2.6, potassium 5 and she got 1 dose of glaucoma. 07/03/2023 Patient is more drowsy, breathing is somewhat labored, she was on a 3 L oxygen but also she is using BiPAP at night and more frequently She has worsening infiltrate on the chest x-ray with cardiomegaly on today imaging compared to yesterday, also her ABG showing evidence with CO2 retention and acute hypoxic hypercapnic respiratory failure therefore patient was transferred to telemetry floor for higher level of care She has evidence of urinary retention with bladder scan for 40 therefore Flomax was added. She remains on her home dose of Eliquis 5 mg, Solu-Medrol 40 mg. Also she is on oral Lasix 40 mg twice daily Case was discussed in details with nephrology team as well as with the staff 07/04/2023 Was using BiPAP machine but she was awake, patient clinically is improving as confirmed with the daughter at bedside. Creatinine is improving down to 1.9. Her chest x-ray shows showing evidence of fluid overload and cardiomegaly Therefore more diuretics were added and agree with IV Lasix 40 mg 1 also patient started on Diamox 07/05/2024 Patient is more comfortable this morning however she is still very lethargic requiring BiPAP with the setting of Currently on BiPAP 06/12 on 40% FiO2 Patient denies chest pain, she still short of breath no significant coughing. No change in urine or bowel habits. No fever. She has some mild leg edema as well. Her abdominal examination. Labs reviewed showing hemoglobin 10.5, creatinine remains same 1.9 went to 2.0. Chest x-ray showing cardiomegaly with bilateral infiltrate suspected fluid overload from CHF but improved compared to chest x-ray from yesterday. Patient Eliquis 5 Mg, Solu-Medrol 40 Mg Once Daily and Holding Her farWorkstir Social history Lasix daily, and dimox. Flomax is admitted for some urinary retention although does not require catheterization I had lengthy discussion with family and all questions answered Resume the care of the patient on 07/08/2023 She looks better today, she is more awake more relaxed however she still in [id number] respiratory distress she is easily get tachypneic once she's tried to talk. She was a BiPAP machine overnight and currently on her home dose of visits oxygen via nasal cannula Chest x-ray from yesterday showing bilateral infiltrates suspicious for CHF but it looks better than 3-4 days ago. Currently his insulin Medrol 4 mg once daily and Eliquis 5 mg. 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 Well developed, well nourished. HEENT: Pupils are round and equally reacting to light. EOMI. No scleral icterus. No conjunctival pallor. Normocephalic, atraumatic. No pharyngeal erythema. No thyromegaly. CARDIOVASCULAR: S1 and S2 present. No murmurs, rubs, or gallops. -PULMONARY: Chest is clear to auscultation, no wheezing , bilateral basal crackles. tachypneic ABDOMEN: Soft, nontender, nondistended, normoactive bowel sounds. No palpable organomegaly. MUSCULOSKELETAL: No joint swelling or deformity. EXTREMITIES: No cyanosis, clubbing, or pedal edema. NEUROLOGICAL: Gross neurological examination did not reveal any focal deficits. SKIN: No rashes. no petechiae. - Labs CBC & Chem 7: 07/07/23 07:39 07/08/23 07:35 Labs: Abnormal Lab Results - Last 24 Hours (Table) 07/07/23 07/07/23 07/07/23 Range/Units 11:17 16:26 18:45 ABG pH (7.35-7.45) ABG pCO2 (35-45) mmHg ABG HCO3 (21-25) mmol/L ABG Total CO2 (19-24) mmol/L ABG O2 Saturation (94-97) % Carbon Dioxide (22-30) mmol/L BUN (7-17) mg/dL Creatinine (0.52-1.04) mg/dL POC Glucose (mg/dL) 217 H 293 H (70-110) mg/dL Magnesium (1.6-2.3) mg/dL Urine Appearance Cloudy H (Clear) Urine Protein Trace H (Negative) Urine Blood Large H (Negative) Ur Leukocyte Esterase Moderate H (Negative) Urine Bacteria Few H (None) /hpf Urine Mucus Rare H (None) /hpf 07/07/23 07/08/23 07/08/23 Range/Units 19:28 03:39 06:16 ABG pH 7.47 H (7.35-7.45) ABG pCO2 54 H (35-45) mmHg ABG HCO3 39 H (21-25) mmol/L ABG Total CO2 41 H (19-24) mmol/L ABG O2 Saturation 98.3 H (94-97) % Carbon Dioxide (22-30) mmol/L BUN (7-17) mg/dL Creatinine (0.52-1.04) mg/dL POC Glucose (mg/dL) 202 H 61 L (70-110) mg/dL Magnesium (1.6-2.3) mg/dL Urine Appearance (Clear) Urine Protein (Negative) Urine Blood (Negative) Ur Leukocyte Esterase (Negative) Urine Bacteria (None) /hpf Urine Mucus (None) /hpf 07/08/ Range/Units 07:35 ABG pH (7.35-7.45) ABG pCO2 (35-45) mmHg ABG HCO3 (21-25) mmol/L ABG Total CO2 (19-24) mmol/L ABG O2 Saturation (94-97) % Carbon Dioxide 36 H (22-30) mmol/L BUN 74 H (7-17) mg/dL Creatinine 1.53 H (0.52-1.04) mg/dL POC Glucose (mg/dL) (70-110) mg/dL Magnesium 2.6 H (1.6-2.3) mg/dL Urine Appearance (Clear) Urine Protein (Negative) Urine Blood (Negative) Ur Leukocyte Esterase (Negative) Urine Bacteria (None) /hpf Urine Mucus (None) /hpf Assessment and Plan Assessment: Acute on chronic congestive heart failure diastolic dysfunction Acute on chronic hypoxic respiratory failure multifactorial COPD, CHF exacerbation Severe COPD with chronic hypoxia on 3 L of oxygen at baseline Acute urinary retention Elevated troponin secondary to type II MS hypoxia Transient hyperkalemia Acute kidney injury Chronic kidney disease stage IV Paroxysmal atrial fibrillation on anticoagulation 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 Plan: Continue with Lasix , as per nephrology service Continue with IV Solu-Medrol Continue with oxygen therapy on BiPAP as needed Add the Flomax Several consultants on the case for the cardiology signed off, pulmonary and nephrology Labs and medication were reviewed.. Continue same treatment. Continue with symptomatic treatment. Resume home medication. Monitor labs and vitals. DVT and GI prophylaxis. Further recommendations as per clinical course of the patient DVT prophylaxis: eliquis GI Prophylaxis: Ppi PT/OT: Pending Prognosis is guarded
[2023-07-08] MEDS: CHOLECALCIFEROL 25 MCG (1000 IU) TABLET PO SCH (09:41)
[2023-07-08] MEDS: methylPREDNISolone SOD SUCCI 40 MG/ML 1 ML VIAL IV SCH (09:42)
[2023-07-08] MEDS: TAMSULOSIN 0.4 MG CAP.ER.24H PO SCH (09:42)
[2023-07-08] MEDS: FAMOTIDINE 20 MG TAB PO SCH (09:42)
[2023-07-08] MEDS: FERROUS SULFATE 325 MG TAB PO SCH (09:42)
[2023-07-08] MEDS: allopurinoL 300 MG TAB PO SCH (09:42)
[2023-07-08] MEDS: APIXABAN 5 MG TAB PO SCH ×2 (09:42→20:32)
--- NOTE | 2023-07-08 11:24 | P.PN ---
Subjective Patient is seen for follow-up for acute kidney injury on chronic kidney disease. Renal function has improved. Serum creatinine is down to 1.5 from 2.6 at peak. Baseline creatinine around 1.4-1.5 mg/dL. No significant complaints today. Objective - Vital Signs Vital signs: Vital Signs Temp 98.3 F 07/08/23 09:39 Pulse 74 07/08/23 09:39 Resp 18 07/08/23 09:39 BP 109/65 07/08/23 09:39 Pulse Ox 96 07/08/23 09:39 FiO2 40 07/08/23 04:28 Intake & Output 07/07/23 07/08/23 07/08/23 18:59 06:59 18:59 Intake Total 760 10 490 Output Total 800 700 Balance -40 -690 490 Weight 84.5 kg Intake: IV 10 10 Invasive Line 4 10 10 Oral 760 480 Output: Urine 800 700 Other: Voiding Method External Catheter External Catheter External Catheter # Voids 1 # Bowel Movements 1 - Exam Patient is awake, comfortable, no acute distress Examination of the heart S1 and S2 Examination the lungs decreased breath sounds at the bases Abdomen is soft nontender Examination of lower extremity shows no evidence of edema 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 - Labs CBC & Chem 7: 07/07/23 07:39 07/08/23 07:35 Labs: Abnormal Lab Results - Last 24 Hours (Table) 07/07/23 07/07/23 07/07/23 Range/Units 16:26 18:45 19:28 ABG pH (7.35-7.45) ABG pCO2 (35-45) mmHg ABG HCO3 (21-25) mmol/L ABG Total CO2 (19-24) mmol/L ABG O2 Saturation (94-97) % Carbon Dioxide (22-30) mmol/L BUN (7-17) mg/dL Creatinine (0.52-1.04) mg/dL POC Glucose (mg/dL) 293 H 202 H (70-110) mg/dL Magnesium (1.6-2.3) mg/dL Urine Appearance Cloudy H (Clear) Urine Protein Trace H (Negative) Urine Blood Large H (Negative) Ur Leukocyte Esterase Moderate H (Negative) Urine Bacteria Few H (None) /hpf Urine Mucus Rare H (None) /hpf 07/08/23 07/08/23 07/08/23 Range/Units 03:39 06:16 07:35 ABG pH 7.47 H (7.35-7.45) ABG pCO2 54 H (35-45) mmHg ABG HCO3 39 H (21-25) mmol/L ABG Total CO2 41 H (19-24) mmol/L ABG O2 Saturation 98.3 H (94-97) % Carbon Dioxide 36 H (22-30) mmol/L BUN 74 H (7-17) mg/dL Creatinine 1.53 H (0.52-1.04) mg/dL POC Glucose (mg/dL) 61 L (70-110) mg/dL Magnesium 2.6 H (1.6-2.3) mg/dL Urine Appearance (Clear) Urine Protein (Negative) Urine Blood (Negative) Ur Leukocyte Esterase (Negative) Urine Bacteria (None) /hpf Urine Mucus (None) /hpf Assessment and Plan Assessment: 1. Acute kidney injury, cardiorenal, nonoliguric. Diuretics have been changed to oral. Blood pressure is not significantly low. No nephrotoxic agents noted. UA is benign and no evidence of obstruction on ultrasound. 2. Chronic kidney disease stage IV with baseline creatinine 1.5-1.7 mg/dL. Etiology is nephrosclerosis. 3. Acute hypoxic respiratory failure secondary to CHF exacerbation 4. Acute on chronic systolic CHF with ejection fraction 35-40% with severe left atrial allocation and severe right ventricular dilated dictation and severe pulmonary hypertension. 5. Chronic hypoxic respiratory failure maintained on home oxygen. Etiology is COPD and CHF 6. Paroxysmal atrial fibrillation maintained on eliquis. Plan: Resume oral diuretics. Switch home Lasix to torsemide. Maintain salt and fluid restriction.
[2023-07-08] MEDS: FUROSEMIDE 20 MG TAB PO SCH (11:46)
[2023-07-08 12:00] LABS: Glucose,Whole Blood 248 mg/dL (70-110)
--- NOTE | 2023-07-08 12:35 | P.PN ---
Subjective Progress Note Date: 07/08/23 I am seeing this patient in new consultation today 06/26/2023 in the emergency room as she has progressively become more short of breath over the last couple weeks. Patient is a 78-year-old white female with past medical history significant for oxygen dependent COPD, CHF, chronic kidney disease, atrial fibrillation, permanent pacemaker, breast cancer with previous lumpectomy and radiation , among other things. She follows with a Dr. Ocampo, in [place], and has moved to the area within the last year. Patient states that she's had progressively worsening shortness of breath over the last couple weeks. She is normally oxygen dependent on 3 L/m nasal cannula. Her shortness of breath is mostly exertional. It's accompanied with chest tightness. She's had a dry nonproductive cough. Denies any fevers. Denies sick contacts. She also states that over weekend, she went to [place] with her family, and did not want to take her Lasix. She held her Lasix on her own from to Monday. Her breathing did get worse. She also admits increased lower extremity swelling. Patient is currently sitting up in bed, on 3 L/m nasal cannula, in no acute distress. Chest x-ray on arrival showed cardiomegaly with bilateral pleural effusions right greater than left and likely bibasilar compressive atelectasis, underlying infectious process could not be ruled out. Most recent echocardiogram from October of this year shows borderline LV systolic function with an EF of 50%. Severe pulmonary hypertension with a RVSP of 67 mmHg, severe right ventricular dilation and moderate tricuspid regurgitation. CBC on arrival showed a WBC count of 6.5, hemoglobin 10.6, hematocrit 35.4, platelets 190. BMP on arrival shows sodium 145, potassium 4.4, chloride 98, serum bicarb 39, BUN 40, creatinine 1.77, glucose 124. Troponins were elevated but flat. NT proBNP was significantly elevated 19,700. ECG on arrival showed a ventricular paced rhythm. Hemodynamically stable. today's evaluation of 06/27/2023, the patient is still having difficulty breathing. She remains on oxygen 5 L/m nasal cannula. Repeat chest x-ray was doneand it showed cardiomegaly and stable perihilar and bibasilar interstitial markings along with small bilateral pleural effusion consistent with CHF. Echocardiogram was done yesterday and the patient was found to have a left insular ejection fraction of 35-40% with moderate MR, [id number] aortic regurgitation, severe tricuspid regurgitation and severe pulmonary hypertension. Labs from today are still pending. Creatinine was elevated at 1.77. Her pr oBNP level was 19,700 and the patient also had troponin levels of 0.06 and 0.05 and 0.06 respectively. The viral screen was negative including Covid 19. She is on Symbicort. She is on DuoNeb [facility]. She is on IV Solu-Medrol 60 mg every 6 hours. She is on Lasix 40 mg every 12 hours. She is also on anticoagulation with Eliquis. The fluid balance has not been accurately measured. She seems to be in a negative fluid balance for now. On 06/28/2023, the patient is being seen for a follow-up. Still having increased shortness of breath and he she continues to be on oxygen 5 L/m nasal cannula. She is bronchospastic and wheezy. She remains on bronchodilators. She remains on steroids. She is also on diuretics and the patient is on Lasix 40 mg IV every 12 hours. No major improvement since yesterday. She has COPD and biventricular heart failure. Labs show a BUN of 59 with a creatinine of 2.2. Sodium level is at 145, bili cigars at 9 with a hemoglobin of 9.9. The fluid balance has been negative. Echo measurements of the input output has not been established. She remains on anticoagulation with Eliquis 5 mg by mouth twice a day. Rest of the home medications have been resumed. On today's evaluation of , the patient is feeling better. She is short of breath. She remains on a combination of bronchodilators, steroids, and diuretics and the patient remains on Lasix 40 mg by mouth twice a day. She remains on IV Solu-Medrol 60 g every 6 hours. She is on 4 L of oxygen nasal cannula with a pulse ox of 90%. She is able to sit up on a chair. Her white cell count is at 8.7 with a hemoglobin of 10.5 and a platelet count of 1. There is a component of an acute kidney injury. BUN is at 70 with a creatinine of 2.5 and the patient was taken off the IV Lasix and switch to oral Lasix. Sodium is at 142 and a potassium level is at 5.9. No other significant events overnight. No altered mentation. No chest pain. Remains on anticoagulation with Eliquis 5 mg by mouth twice a day. On today's evaluation of 06/30/2023, the patient is being seen for a follow-up. The patient continues to struggle with her breathing. Earlier today, the patient was noted to be more somnolent and sleepy. Based on that, a blood gas was done and the patient was found to have a pH of 7.26 and the P CO2 of 87 and pO2 of 61. Based on that, the patient was placed on a BiPAP at a pressure of 10/5 cm of water. The patient continues to diurese. Creatinine is up to 2.4 with a BUN of 79. The findings of the case. Sodium is at 142. Ultrasound of the kidneys were done and there is chronic mild medical renal disease. No solid kidney masses. No evidence of hydronephrosis. No kidney stones. The patient continues to be on DuoNeb neb blotchiness on the clock. The patient is also on Symbicort. The patient is receiving IV Solu-Medrol 40 mg on a daily basis. In terms of diuresis, the patient is on oral Lasix 40 mg by mouth twice a day. Rest of the medications unchanged. On 07/01/2023, the patient is being seen for a follow-up. Unfortunately, she still having episodes of lethargy and increased sleepiness and diminished level of consciousness. Earlier this morning she was fine and subsequently she became more lethargic. I suspect that the patient is having some episodes of hypercapnic respiratory failure. She is on enough being placed on a BiPAP. She remains on the same treatment for now. She is on DuoNeb updrafts and IV Solu- Medrol 40 mg every 24-hour speech is also on oral Lasix 40 mg twice a day. A repeat chest x-ray was done and the chest x-ray findings are showing carotid negative pulmonary vessel congestion. There is moderate right and small left- sided pleural effusion. She has significant kyphoscoliosis of the chest. Labs from today shows improvement of the scope 9.4, he was sent 0.9, sodium levels of 142, potassium is at 5, BUN is at 96 with creatinine of 2.4. UA is negative. Troponins of 0.06. On 07/02/2023, the patient is sitting up on a chair and she is wearing the BiPAP. She is stable. She is communicating. She is arousable. She has an acute kidney injury on top of her chronic kidney disease. 11 function slightly worse compared to yesterday. On today's blood work, the sodium level is at 142, BUN is at 102 with a creatinine of 2.6. Potassium levels at 5.0. UA negative. The patient remains on bronchodilators. The patient remains on IV Solu-Medrol. She is also on Lasix 40 mg by mouth twice a day. Nephrology is on the case. The patient is seen today 07/03/2023 in follow-up on the regular medical floor. She is currently sitting up in bed. Awake and alert in no acute distress. She is currently maintaining O2 saturations in the 90s on 3 L/m per nasal cannula. She is alternating with BiPAP 12/5 and 40% FiO2. Sodium 146. Potassium 4.3. Bicarb 39. BUN 103. Creatinine 2.3. Glucose 167. Chest x-ray reveals stable bibasilar infiltrates with small effusions and cardiomegaly. She is continued on Symbicort and albuterol. Remains on IV Solu-Medrol. Remains on oral diuretics. Anticoagulated with Eliquis. The patient is seen today 07/04/2023 in follow-up on the regular medical floor. She is awake and alert in no acute distress. Resting fairly comfortably in bed. She is more alert today. Talking with her family. She is utilizing the BiPAP 16/5 on 40% FiO2 while resting and at nighttime. She remains afebrile. Hemodynamically stable. Count 7.6. Hemoglobin 10.5. Platelets 131. Sodium 142. Potassium 4.1. Bicarb 41. BUN 118. Creatinine 1.96. Glucose 135. ProBNP 28,100. She's been initiated on Diamox. Continued on DuoNeb inhalations, Symbicort, Solu-Medrol and Singulair. Anticoagulated with Eliquis. The patient is seen today 07/05/2023 in follow-up on the regular medical floor. She is currently resting comfortably in bed. Currently on BiPAP 16/5 on 40% FiO2. Chest x-ray showing improvement of the congestive heart failure. Less pulmonary venous congestion. Sodium 143. Potassium 3.8. Bicarb 39. BUN 106. Creatinine 2.09. Glucose 177. She remains on DuoNeb inhalations, Symbicort, Solu-Medrol and Singulair. Anticoagulated with Eliquis. Continued on Lasix and Diamox. Making adequate urine. The patient is seen today 07/06/2023 in follow-up on the regular medical floor. She is currently resting in bed on 3 L nasal cannula. Off the BiPAP which she had been wearing 16/5 and 40% FiO2. Denies any worsening shortness of breath, cough or congestion. Sodium 143. Potassium 3.5. Bicarb 44. BUN 89. Creatinine 1.76. Glucose 184. She remains on Diamox and Lasix. Urine output 1600 ML's today thus far. Continued on DuoNeb inhalations, Symbicort, Solu- Medrol. Anticoagulated with Eliquis. Arterial blood gases obtained on 32% FiO2 revealed a P O2 of 64, pCO2 73 and a pH of 7.36. The patient is seen today 07/07/2023 in follow-up on the regular medical floor. She is awake and alert in no acute distress. Sitting up in bed. Currently on 3 L/m per nasal cannula. She states she did wear the BiPAP throughout the night 16/5 and 40% FiO2. Today's chest x-ray reveals overall stable exam with moderate cardiomegaly and small right greater than left pleural effusions with adjacent atelectasis. White count 10.1. Hemoccult 1110.7. Platelets 130. Sodium 140. Potassium 3.8. Bicarb 39. BUN 80. Creatinine 1.72. Glucose 107. She is continued on DuoNeb inhalations, Symbicort, Solu-Medrol. Anticoagulated with Eliquis. The patient is seen today 07/08/2023 in follow-up on the regular medical floor. She is currently sitting up in bed. Awake and alert. Family at the bedside. Denies any worsening shortness of breath, cough or congestion. Continue O2 saturations in the 90s on 3 L/m per nasal cannula. Afebrile. Hemodynamically stable. She is still utilizing the BiPAP at night 16/5 and 40% FiO2. Sodium 143. Potassium 3.9. Bicarb 36. BUN 74. Creatinine 1.53. Glucose 103. She is continued on DuoNeb inhalations, Symbicort, Solu-Medrol. Anticoagulated with Eliquis. Objective - Vital Signs Vital signs: Vital Signs Temp 98.0 F 07/08/23 11:45 Pulse 78 07/08/23 12:03 Resp 18 07/08/23 11:45 BP 106/58 07/08/23 11:45 Pulse Ox 93 L 07/08/23 11:45 FiO2 40 07/08/23 04:28 Intake & Output 07/07/23 07/08/23 07/08/23 18:59 06:59 18:59 Intake Total 760 10 590 Output Total 800 700 Balance -40 -690 590 Weight 84.5 kg Intake: IV 10 10 Invasive Line 4 10 10 Oral 760 580 Output: Urine 800 700 Other: Voiding Method External Catheter External Catheter External Catheter # Voids 1 # Bowel Movements 1 - Exam GENERAL EXAM: Alert, 78-year-old female, sitting up in bed, on 3 L nasal cannula, comfortable in no distress. HEAD: Normocephalic. EYES: Normal reaction of pupils, equal size. NOSE: Clear with pink turbinates. THROAT: No erythema or exudates. NECK: No masses, no JVD. CHEST: No chest wall deformity. LUNGS: Equal air entry with crackles in the bilateral bases. CVS: S1 and S2 normal with no audible murmur, regular rhythm. ABDOMEN: No hepatosplenomegaly, normal bowel sounds, no guarding or rigidity. SPINE: No scoliosis or deformity SKIN: No rashes CENTRAL NERVOUS SYSTEM: No focal deficits, tone is normal in all 4 extremities. EXTREMITIES: There is no peripheral edema. No clubbing, no cyanosis. Peripheral pulses are intact. - Labs CBC & Chem 7: 07/07/23 07:39 07/08/23 07:35 Labs: Abnormal Lab Results - Last 24 Hours (Table) 07/07/23 07/07/23 07/07/23 Range/Units 16:26 18:45 19:28 ABG pH (7.35-7.45) ABG pCO2 (35-45) mmHg ABG HCO3 (21-25) mmol/L ABG Total CO2 (19-24) mmol/L ABG O2 Saturation (94-97) % Carbon Dioxide (22-30) mmol/L BUN (7-17) mg/dL Creatinine (0.52-1.04) mg/dL POC Glucose (mg/dL) 293 H 202 H (70-110) mg/dL Magnesium (1.6-2.3) mg/dL Urine Appearance Cloudy H (Clear) Urine Protein Trace H (Negative) Urine Blood Large H (Negative) Ur Leukocyte Esterase Moderate H (Negative) Urine Bacteria Few H (None) /hpf Urine Mucus Rare H (None) /hpf 07/08/23 07/08/23 07/08/23 Range/Units 03:39 06:16 07:35 ABG pH 7.47 H (7.35-7.45) ABG pCO2 54 H (35-45) mmHg ABG HCO3 39 H (21-25) mmol/L ABG Total CO2 41 H (19-24) mmol/L ABG O2 Saturation 98.3 H (94-97) % Carbon Dioxide 36 H (22-30) mmol/L BUN 74 H (7-17) mg/dL Creatinine 1.53 H (0.52-1.04) mg/dL POC Glucose (mg/dL) 61 L (70-110) mg/dL Magnesium 2.6 H (1.6-2.3) mg/dL Urine Appearance (Clear) Urine Protein (Negative) Urine Blood (Negative) Ur Leukocyte Esterase (Negative) Urine Bacteria (None) /hpf Urine Mucus (None) /hpf 07/08/23 Range/Units 11:58 ABG pH (7.35-7.45) ABG pCO2 (35-45) mmHg ABG HCO3 (21-25) mmol/L ABG Total CO2 (19-24) mmol/L ABG O2 Saturation (94-97) % Carbon Dioxide (22-30) mmol/L BUN (7-17) mg/dL Creatinine (0.52-1.04) mg/dL POC Glucose (mg/dL) 248 H (70-110) mg/dL Magnesium (1.6-2.3) mg/dL Urine Appearance (Clear) Urine Protein (Negative) Urine Blood (Negative) Ur Leukocyte Esterase (Negative) Urine Bacteria (None) /hpf Urine Mucus (None) /hpf Assessment and Plan Assessment: Acute on chronic hypoxemic respiratory failure, secondary to a combination of exacerbation of systolic congestive heart failure/biventricular heart failure as the patient has LV dysfunction with an ejection fraction of 35% addition to valvular insufficiency involving the mitral and aortic valve and severe tricuspid regurgitation with severe pulmonary hypertension. The RV is also severely dilated. Patient also has a component of acute COPD exacerbation. Alternating 3 L nasal cannula with BiPAP support 16/5 on 40% FiO2. Chest x-ray showing improved aeration and less pulmonary venous congestion. Her blood gases revealed a PaO2 of 64, pCO2 73, pH 7.36. Remains on Diamox and Lasix. Severe oxygen dependent COPD, and the patient has chronic hypoxic respiratory failure normally on 3 L Chronic hypoxemic respiratory failure secondary to above Severe pulmonary hypertension Acute on top of chronic kidney disease stage IV, patient is currently on Diamox and Lasix Anemia of chronic disease Paroxysmal atrial fibrillation, anticoagulated on Eliquis Chronically elevated troponins History of permanent pacemaker implantation, currently ventricularly paced Remote history of breast cancer, with previous lumpectomy and radiation Nonocclusive coronary artery disease Previous history of atrial fibrillation Plan: The patient was seen and evaluated Labs and medications reviewed Continue the current treatment plan May qualify for BiPaP/AVAPS device at discharge Would recommend subacute rehab post discharge We will continue to follow I have personally seen and examined the patient, performed the documentation and the assessment and plan as written. Number of minutes spent on the visit: 10.
[2023-07-08 16:26] LABS: Glucose,Whole Blood 271 mg/dL (70-110)
[2023-07-08 20:16] LABS: Glucose,Whole Blood 206 mg/dL (70-110)
[2023-07-08] MEDS: MONTELUKAST 10 MG TAB PO SCH (20:32)
[2023-07-08] MEDS: METOPROLOL SUCCINATE (ER) 25 MG TAB.ER.24H PO SCH (20:32)
[2023-07-08] MEDS: LORATADINE 10 MG TAB PO SCH (20:32)
[2023-07-08] MEDS: INSULIN DETEMIR (LEVEMIR) 100 UNIT/ML SYR SQ SCH (20:33)
[2023-07-09] MEDS ORDERED: ZINC OXIDE PASTE (Z-GUARD) 1 APPLIC APPLIC TOPICAL PRN (05:52)
[2023-07-09 06:21] LABS: Glucose,Whole Blood 169 mg/dL (70-110)
[2023-07-09] MEDS: INSULIN ASPART (NovoLOG) 100 UNIT/ML VIAL SQ SCH ×4 (06:39→21:06)
--- NOTE | 2023-07-09 07:54 | P.PN ---
Subjective 78-year-old patient with past medical history significant for congestive heart failure, chronic kidney disease, history of a defibrillation status post pacemaker in place, previous history of breast cancer status post lumpectomy and radiation, COPD on home oxygen, presented to the emergency department with complaints of progressive shortness of breath. At baseline patient weighs 3 L of oxygen, however patient has been having more exertional shortness of breath as well as chest pain. This was associated with nonproductive cough, patient denies associated fever, chills, nausea, vomiting with 6 contact. states her symptoms started 1 week ago around when she went up with the family. Patient states she had her Lasix during that time and started to feel short of breath since then. She has noticed increased swelling and lower extremity as well Workup initiated in ER included a chest x-ray which showed bilateral pleural effusions as well as cardiomegaly. Workup in ER included CBC which were WBC count of 6.5 hemoglobin 10.6 platelet 190, serum chemistry shows sodium 145 potassium 4.5 chloride 98 , serum bicarbonate 39 BU and 40 creatinine 1.77. Patient had elevated troponin which remained flat in ED, N-terminal proBNP was noted to be 19,700, EKG obtained in ER showed paced rhythm Patient to be admitted to medical floor with consultation from pulmonary medicine and cardiology 06/27/2023: Patient seen and evaluated bedside patient seen in ER room 1, waiting for bed, continue patient on diuresis the patient input from pulmonary medicine, blood work reviewed, serum chemistry reviewed creatinine 2.09. N- terminal proBNP 13226 06/28/2023: Patient seen and evaluated bedside, patient in room 485, patient does complain of shortness of breath, follow-up chest x-ray obtained shows slight improvement in pulmonary vascular congestion was on 6 L of oxygen weaned down to 4 L. Appreciate input from cardiology, WBC within normal limits, serum chemistry and renal function reviewed, creatinine 2.2 N-terminal proBNP 49130. Pro-calcitonin was negative. Once kidney function improved patient will benefit from ELLEN 06/29/2023: Patient seen and evaluated bedside, patient does complain of shortness of breath however she states her breathing has improved, continue patient on Lasix, blood work reviewed, potassium 5.9, Patient patient to be given insulin, dextrose, calcium gluconate and sodium bicarbonate. Continue patient on Lasix, oral potassium supplementation discontinued 06/30/2023: Patient seen and evaluated bedside, patient does complain of shortness of breath, blood work reviewed, potassium 5.5, lokelma given, follow- up on potassium levels. Renal function creatinine 2.4, nephrology following. Continue patient on Lasix transitioned from IV to oral. IV Solu-Medrol weaned down to daily as well 07/01/2023 Patient is still complaining from shortness of breath She is requiring BiPAP at night Currently she is on 4 L oxygen, at home she is on 3 L/m She still have bilateral congestion in the right pleural effusion of the chest x-ray Continued on oral Lasix 40 mg twice daily and Zaroxolyn 1 dose was given today Also she is on IV Solu-Medrol 40 mg once daily with pulmonary team following him closely On liquids for her chronic A. fib 07/02/2023 patient is breathing is somewhat controlled with episodes of worsening requiring BiPAP, currently she is on 3 L which is a much her home dose She still slightly confused and drowsy related to her metabolic encephalopathy. She is also being treated with oral Lasix and once daily IV Solu-Medrol. Her bladder scan was 440, [place] fax added and we will check it again. Her creatinine is slightly worse 2.6, potassium 5 and she got 1 dose of glaucoma. 07/03/2023 Patient is more drowsy, breathing is somewhat labored, she was on a 3 L oxygen but also she is using BiPAP at night and more frequently She has worsening infiltrate on the chest x-ray with cardiomegaly on today imaging compared to yesterday, also her ABG showing evidence with CO2 retention and acute hypoxic hypercapnic respiratory failure therefore patient was transferred to telemetry floor for higher level of care She has evidence of urinary retention with bladder scan for 40 therefore Flomax was added. She remains on her home dose of Eliquis 5 mg, Solu-Medrol 40 mg. Also she is on oral Lasix 40 mg twice daily Case was discussed in details with nephrology team as well as with the staff 07/04/2023 Was using BiPAP machine but she was awake, patient clinically is improving as confirmed with the daughter at bedside. Creatinine is improving down to 1.9. Her chest x-ray shows showing evidence of fluid overload and cardiomegaly Therefore more diuretics were added and agree with IV Lasix 40 mg 1 also patient started on Diamox 07/05/2024 Patient is more comfortable this morning however she is still very lethargic requiring BiPAP with the setting of Currently on BiPAP 06/12 on 40% FiO2 Patient denies chest pain, she still short of breath no significant coughing. No change in urine or bowel habits. No fever. She has some mild leg edema as well. Her abdominal examination. Labs reviewed showing hemoglobin 10.5, creatinine remains same 1.9 went to 2.0. Chest x-ray showing cardiomegaly with bilateral infiltrate suspected fluid overload from CHF but improved compared to chest x-ray from yesterday. Patient Eliquis 5 Mg, Solu-Medrol 40 Mg Once Daily and Holding Her farxiga Social history Lasix daily, and dimox. Flomax is admitted for some urinary retention although does not require catheterization I had lengthy discussion with family and all questions answered Resume the care of the patient on 07/08/2023 She looks better today, she is more awake more relaxed however she still in [id number] respiratory distress she is easily get tachypneic once she's tried to talk. She was a BiPAP machine overnight and currently on her home dose of visits oxygen via nasal cannula Chest x-ray from yesterday showing bilateral infiltrates suspicious for CHF but it looks better than 3-4 days ago. Currently his insulin Medrol 4 mg once daily and Eliquis 5 mg. 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 by machine shop worker 07/09/2023 Patient remains on BiPAP during the night and during the day she is carrying 3 L/m of oxygen, she is awake and alert and oriented, only mildly confused, easily inducible tachypnea. Vitals looks stable with a blood pressure 122/58 and heart rate 71. Creatinine at 1.5 and today she started on Lasix 20 mg daily Plan to hold Diamox and with a fall that 2 nephrology team Just continue on eliquis and Solu-Medrol 40 mg once daily Objective - Vital Signs Vital signs: Vital Signs Temp 98.4 F 07/09/23 04:00 Pulse 71 07/09/23 04:00 Resp 16 07/09/23 04:00 BP 122/58 07/09/23 04:00 Pulse Ox 93 L 07/09/23 04:00 FiO2 40 07/09/23 04:36 Intake & Output 07/08/23 07/09/23 07/09/23 18:59 06:59 18:59 Intake Total 830 310 10 Output Total 500 700 Balance 330 -390 10 Weight 84 kg Intake: IV 10 10 10 Invasive Line 4 10 10 10 Oral 820 300 Output: Urine 500 700 Other: Voiding Method External Catheter External Catheter - Exam -GENERAL: The patient is alert and oriented , mildly confused drowsy not in any acute distress. Well developed, well nourished. HEENT: Pupils are round and equally reacting to light. EOMI. No scleral icterus. No conjunctival pallor. Normocephalic, atraumatic. No pharyngeal erythema. No thyromegaly. CARDIOVASCULAR: S1 and S2 present. No murmurs, rubs, or gallops. -PULMONARY: Chest is clear to auscultation, no wheezing , bilateral basal crackles. tachypneic ABDOMEN: Soft, nontender, nondistended, normoactive bowel sounds. No palpable organomegaly. MUSCULOSKELETAL: No joint swelling or deformity. EXTREMITIES: No cyanosis, clubbing, or pedal edema. NEUROLOGICAL: Gross neurological examination did not reveal any focal deficits. SKIN: No rashes. no petechiae. - Labs CBC & Chem 7: 07/07/23 07:39 07/08/23 07:35 Labs: Abnormal Lab Results - Last 24 Hours (Table) 07/08/23 07/08/23 07/08/23 Range/Units 07:35 11:58 16:23 Carbon Dioxide 36 H (22-30) mmol/L BUN 74 H (7-17) mg/dL Creatinine 1.53 H (0.52-1.04) mg/dL POC Glucose (mg/dL) 248 H 271 H (70-110) mg/dL Magnesium 2.6 H (1.6-2.3) mg/dL 07/08/23 07/09/23 Range/Units 20:14 06:19 Carbon Dioxide (22-30) mmol/L BUN (7-17) mg/dL Creatinine (0.52-1.04) mg/dL POC Glucose (mg/dL) 206 H 169 H (70-110) mg/dL Magnesium (1.6-2.3) mg/dL Assessment and Plan Assessment: Acute on chronic congestive heart failure diastolic dysfunction Acute on chronic hypoxic respiratory failure multifactorial COPD, CHF exa cerbation Severe COPD with chronic hypoxia on 3 L of oxygen at baseline Acute urinary retention Elevated troponin secondary to type II VA hypoxia Transient hyperkalemia Acute kidney injury Chronic kidney disease stage IV Paroxysmal atrial fibrillation on anticoagulation 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 Plan: Continue with Lasix , as per nephrology service Continue with IV Solu-Medrol Continue with oxygen therapy on BiPAP as needed Add the Flomax Several consultants on the case for the cardiology signed off, pulmonary and nephrology Labs and medication were reviewed.. Continue same treatment. Continue with symptomatic treatment. Resume home medication. Monitor labs and vitals. DVT and GI prophylaxis. Further recommendations as per clinical course of the patient DVT prophylaxis: eliquis GI Prophylaxis: Ppi PT/OT: Pending Prognosis is guarded
[2023-07-09] MEDS: SYMBICORT 160-4.5 MCG INHALER INHALATION SCH ×2 (08:21→20:37)
[2023-07-09] MEDS: ALBUTEROL NEBULIZED 2.5 MG/3 ML INHALATION SCH ×4 (08:21→20:37)
[2023-07-09] MEDS: allopurinoL 300 MG TAB PO SCH (09:32)
[2023-07-09] MEDS: FERROUS SULFATE 325 MG TAB PO SCH (09:32)
[2023-07-09] MEDS: FUROSEMIDE 20 MG TAB PO SCH (09:32)
[2023-07-09] MEDS: FAMOTIDINE 20 MG TAB PO SCH (09:32)
[2023-07-09] MEDS: TAMSULOSIN 0.4 MG CAP.ER.24H PO SCH (09:32)
[2023-07-09] MEDS: methylPREDNISolone SOD SUCCI 40 MG/ML 1 ML VIAL IV SCH (09:32)
[2023-07-09] MEDS: CHOLECALCIFEROL 25 MCG (1000 IU) TABLET PO SCH (09:32)
[2023-07-09] MEDS: APIXABAN 5 MG TAB PO SCH ×2 (09:32→21:06)
--- NOTE | 2023-07-09 11:09 | P.PN ---
Subjective Patient is seen for follow-up for acute kidney injury on chronic kidney disease. Renal function has improved. Serum creatinine is down to 1.5 from 2.6 at peak. Baseline creatinine around 1.4-1.5 mg/dL. No significant complaints today. Objective - Vital Signs Vital signs: Vital Signs Temp 98.0 F 07/09/23 09:45 Pulse 85 07/09/23 09:45 Resp 18 07/09/23 09:45 BP 102/60 07/09/23 09:45 Pulse Ox 95 07/09/23 09:45 FiO2 40 07/09/23 08:21 Intake & Output 07/08/23 07/09/23 07/09/23 18:59 06:59 18:59 Intake Total 830 310 10 Output Total 500 700 Balance 330 -390 10 Weight 84 kg Intake: IV 10 10 10 Invasive Line 4 10 10 10 Oral 820 300 Output: Urine 500 700 Other: Voiding Method External Catheter External Catheter External Catheter - Exam Patient is awake, comfortable, no acute distress Examination of the heart S1 and S2 Examination the lungs decreased breath sounds at the bases Abdomen is soft nontender Examination of lower extremity shows no evidence of edema [employer] exam grossly intact - Labs CBC & Chem 7: 07/07/23 07:39 07/08/23 07:35 Labs: Abnormal Lab Results - Last 24 Hours (Table) 07/08/23 07/08/23 07/08/23 Range/Units 11:58 : 20:14 POC Glucose (mg/dL) 248 H 271 H 206 H (70-110) mg/dL 07/09/23 Range/Units 06:19 POC Glucose (mg/dL) 169 H (70-110) mg/dL Assessment and Plan Assessment: 1. Acute kidney injury, cardiorenal, nonoliguric. Diuretics have been changed to oral. Blood pressure is not significantly low. No nephrotoxic agents noted. UA is benign and no evidence of obstruction on ultrasound. 2. Chronic kidney disease stage IV with baseline creatinine 1.5-1.7 mg/dL. Etiology is nephrosclerosis. 3. Acute hypoxic respiratory failure secondary to CHF exacerbation 4. Acute on chronic systolic CHF with ejection fraction 35-40% with severe left atrial allocation and severe right ventricular dilated dictation and severe pulmonary hypertension. 5. Chronic hypoxic respiratory failure maintained on home oxygen. Etiology is COPD and CHF 6. Paroxysmal atrial fibrillation maintained on eliquis. 7. Metabolic alkalosis associated with diuresis and chronic CO2 retention, maintained on IV Diamox Plan: Resume oral diuretics. Switch home Lasix to torsemide. Change Diamox to oral Maintain salt and fluid restriction.
[2023-07-09] MEDS ORDERED: FUROSEMIDE 10 MG TAB PO SCH (11:15)
[2023-07-09] MEDS ORDERED: FUROSEMIDE 20 MG TAB PO SCH (11:15)
[2023-07-09] MEDS: TORSEMIDE 20 MG TAB PO SCH (11:31)
[2023-07-09 11:38] LABS: Glucose,Whole Blood 173 mg/dL (70-110)
--- NOTE | 2023-07-09 12:36 | P.PN ---
Subjective Progress Note Date: 07/09/23 I am seeing this patient in new consultation today 06/26/2023 in the emergency room as she has progressively become more short of breath over the last couple weeks. Patient is a 78-year-old white female with past medical history significant for oxygen dependent COPD, CHF, chronic kidney disease, atrial fibrillation, permanent pacemaker, breast cancer with previous lumpectomy and radiation , among other things. She follows with a Dr. Ocampo, in [place], and has moved to the area within the last year. Patient states that she's had progressively worsening shortness of breath over the last couple weeks. She is normally oxygen dependent on 3 L/m nasal cannula. Her shortness of breath is mostly exertional. It's accompanied with chest tightness. She's had a dry nonproductive cough. Denies any fevers. Denies sick contacts. She also states that over weekend, she went to [place] with her family, and did not want to take her Lasix. She held her Lasix on her own from to Monday. Her breathing did get worse. She also admits increased lower extremity swelling. Patient is currently sitting up in bed, on 3 L/m nasal cannula, in no acute distress. Chest x-ray on arrival showed cardiomegaly with bilateral pleural effusions right greater than left and likely bibasilar compressive atelectasis, underlying infectious process could not be ruled out. Most recent echocardiogram from October of this year shows borderline LV systolic function with an EF of 50%. Severe pulmonary hypertension with a RVSP of 67 mmHg, severe right ventricular dilation and moderate tricuspid regurgitation. CBC on arrival showed a WBC count of 6.5, hemoglobin 10.6, hematocrit 35.4, platelets 190. BMP on arrival shows sodium 145, potassium 4.4, chloride 98, serum bicarb 39, BUN 40, creatinine 1.77, glucose 124. Troponins were elevated but flat. NT proBNP was significantly elevated 19,700. ECG on arrival showed a ventricular paced rhythm. Hemodynamically stable. today's evaluation of 06/27/2023, the patient is still having difficulty breathing. She remains on oxygen 5 L/m nasal cannula. Repeat chest x-ray was doneand it showed cardiomegaly and stable perihilar and bibasilar interstitial markings along with small bilateral pleural effusion consistent with CHF. Echocardiogram was done yesterday and the patient was found to have a left insular ejection fraction of 35-40% with moderate MR, [id number] aortic regurgitation, severe tricuspid regurgitation and severe pulmonary hypertension. Labs from today are still pending. Creatinine was elevated at 1.77. Her pr oBNP level was 19,700 and the patient also had troponin levels of 0.06 and 0.05 and 0.06 respectively. The viral screen was negative including Covid 19. She is on Symbicort. She is on DuoNeb [facility]. She is on IV Solu-Medrol 60 mg every 6 hours. She is on Lasix 40 mg every 12 hours. She is also on anticoagulation with Eliquis. The fluid balance has not been accurately measured. She seems to be in a negative fluid balance for now. On 06/28/2023, the patient is being seen for a follow-up. Still having increased shortness of breath and he she continues to be on oxygen 5 L/m nasal cannula. She is bronchospastic and wheezy. She remains on bronchodilators. She remains on steroids. She is also on diuretics and the patient is on Lasix 40 mg IV every 12 hours. No major improvement since yesterday. She has COPD and biventricular heart failure. Labs show a BUN of 59 with a creatinine of 2.2. Sodium level is at 145, bili cigars at 9 with a hemoglobin of 9.9. The fluid balance has been negative. Echo measurements of the input output has not been established. She remains on anticoagulation with Eliquis 5 mg by mouth twice a day. Rest of the home medications have been resumed. On today's evaluation of , the patient is feeling better. She is short of breath. She remains on a combination of bronchodilators, steroids, and diuretics and the patient remains on Lasix 40 mg by mouth twice a day. She remains on IV Solu-Medrol 60 g every 6 hours. She is on 4 L of oxygen nasal cannula with a pulse ox of 90%. She is able to sit up on a chair. Her white cell count is at 8.7 with a hemoglobin of 10.5 and a platelet count of 1. There is a component of an acute kidney injury. BUN is at 70 with a creatinine of 2.5 and the patient was taken off the IV Lasix and switch to oral Lasix. Sodium is at 142 and a potassium level is at 5.9. No other significant events overnight. No altered mentation. No chest pain. Remains on anticoagulation with Eliquis 5 mg by mouth twice a day. On today's evaluation of 06/30/2023, the patient is being seen for a follow-up. The patient continues to struggle with her breathing. Earlier today, the patient was noted to be more somnolent and sleepy. Based on that, a blood gas was done and the patient was found to have a pH of 7.26 and the P CO2 of 87 and pO2 of 61. Based on that, the patient was placed on a BiPAP at a pressure of 10/5 cm of water. The patient continues to diurese. Creatinine is up to 2.4 with a BUN of 79. The findings of the case. Sodium is at 142. Ultrasound of the kidneys were done and there is chronic mild medical renal disease. No solid kidney masses. No evidence of hydronephrosis. No kidney stones. The patient continues to be on DuoNeb neb blotchiness on the clock. The patient is also on Symbicort. The patient is receiving IV Solu-Medrol 40 mg on a daily basis. In terms of diuresis, the patient is on oral Lasix 40 mg by mouth twice a day. Rest of the medications unchanged. On 07/01/2023, the patient is being seen for a follow-up. Unfortunately, she still having episodes of lethargy and increased sleepiness and diminished level of consciousness. Earlier this morning she was fine and subsequently she became more lethargic. I suspect that the patient is having some episodes of hypercapnic respiratory failure. She is on enough being placed on a BiPAP. She remains on the same treatment for now. She is on DuoNeb updrafts and IV Solu- Medrol 40 mg every 24-hour speech is also on oral Lasix 40 mg twice a day. A repeat chest x-ray was done and the chest x-ray findings are showing carotid negative pulmonary vessel congestion. There is moderate right and small left- sided pleural effusion. She has significant kyphoscoliosis of the chest. Labs from today shows improvement of the scope 9.4, he was sent 0.9, sodium levels of 142, potassium is at 5, BUN is at 96 with creatinine of 2.4. UA is negative. Troponins of 0.06. On 07/02/2023, the patient is sitting up on a chair and she is wearing the BiPAP. She is stable. She is communicating. She is arousable. She has an acute kidney injury on top of her chronic kidney disease. 11 function slightly worse compared to yesterday. On today's blood work, the sodium level is at 142, BUN is at 102 with a creatinine of 2.6. Potassium levels at 5.0. UA negative. The patient remains on bronchodilators. The patient remains on IV Solu-Medrol. She is also on Lasix 40 mg by mouth twice a day. Nephrology is on the case. The patient is seen today 07/03/2023 in follow-up on the regular medical floor. She is currently sitting up in bed. Awake and alert in no acute distress. She is currently maintaining O2 saturations in the 90s on 3 L/m per nasal cannula. She is alternating with BiPAP 12/5 and 40% FiO2. Sodium 146. Potassium 4.3. Bicarb 39. BUN 103. Creatinine 2.3. Glucose 167. Chest x-ray reveals stable bibasilar infiltrates with small effusions and cardiomegaly. She is continued on Symbicort and albuterol. Remains on IV Solu-Medrol. Remains on oral diuretics. Anticoagulated with Eliquis. The patient is seen today 07/04/2023 in follow-up on the regular medical floor. She is awake and alert in no acute distress. Resting fairly comfortably in bed. She is more alert today. Talking with her family. She is utilizing the BiPAP 16/5 on 40% FiO2 while resting and at nighttime. She remains afebrile. Hemodynamically stable. Count 7.6. Hemoglobin 10.5. Platelets 131. Sodium 142. Potassium 4.1. Bicarb 41. BUN 118. Creatinine 1.96. Glucose 135. ProBNP 28,100. She's been initiated on Diamox. Continued on DuoNeb inhalations, Symbicort, Solu-Medrol and Singulair. Anticoagulated with Eliquis. The patient is seen today 07/05/2023 in follow-up on the regular medical floor. She is currently resting comfortably in bed. Currently on BiPAP 16/5 on 40% FiO2. Chest x-ray showing improvement of the congestive heart failure. Less pulmonary venous congestion. Sodium 143. Potassium 3.8. Bicarb 39. BUN 106. Creatinine 2.09. Glucose 177. She remains on DuoNeb inhalations, Symbicort, Solu-Medrol and Singulair. Anticoagulated with Eliquis. Continued on Lasix and Diamox. Making adequate urine. The patient is seen today 07/06/2023 in follow-up on the regular medical floor. She is currently resting in bed on 3 L nasal cannula. Off the BiPAP which she had been wearing 16/5 and 40% FiO2. Denies any worsening shortness of breath, cough or congestion. Sodium 143. Potassium 3.5. Bicarb 44. BUN 89. Creatinine 1.76. Glucose 184. She remains on Diamox and Lasix. Urine output 1600 ML's today thus far. Continued on DuoNeb inhalations, Symbicort, Solu- Medrol. Anticoagulated with Eliquis. Arterial blood gases obtained on 32% FiO2 revealed a P O2 of 64, pCO2 73 and a pH of 7.36. The patient is seen today 07/07/2023 in follow-up on the regular medical floor. She is awake and alert in no acute distress. Sitting up in bed. Currently on 3 L/m per nasal cannula. She states she did wear the BiPAP throughout the night 16/5 and 40% FiO2. Today's chest x-ray reveals overall stable exam with moderate cardiomegaly and small right greater than left pleural effusions with adjacent atelectasis. White count 10.1. Hemoccult 1110.7. Platelets 130. Sodium 140. Potassium 3.8. Bicarb 39. BUN 80. Creatinine 1.72. Glucose 107. She is continued on DuoNeb inhalations, Symbicort, Solu-Medrol. Anticoagulated with Eliquis. The patient is seen today 07/08/2023 in follow-up on the regular medical floor. She is currently sitting up in bed. Awake and alert. Family at the bedside. Denies any worsening shortness of breath, cough or congestion. Continue O2 saturations in the 90s on 3 L/m per nasal cannula. Afebrile. Hemodynamically stable. She is still utilizing the BiPAP at night 16/5 and 40% FiO2. Sodium 143. Potassium 3.9. Bicarb 36. BUN 74. Creatinine 1.53. Glucose 103. She is continued on DuoNeb inhalations, Symbicort, Solu-Medrol. Anticoagulated with Eliquis. The patient is seen today 07/09/2023 in follow-up on the regular medical floor. She is sitting up in bed. More awake and alert today. Denies any worsening shortness of breath, cough or congestion. She did utilize the BiPAP throughout the evening 16/ and 40% FiO2. Most recent arterial blood gases revealed a PaO2 of 92, pCO2 54 and a pH of 7.47. Glucose 173. She remains on Symbicort, DuoNeb inhalations, Solu-Medrol and Singulair. Remains on diuretics. Anticoagulated with Eliquis. Objective - Vital Signs Vital signs: Vital Signs Temp 98.1 F 07/09/23 12:12 Pulse 68 07/09/23 12:12 Resp 18 07/09/23 12:12 BP 91/51 07/09/23 12:12 Pulse Ox 94 L 07/09/23 12:12 FiO2 40 07/09/23 08:21 Intake & Output 07/08/23 07/09/23 07/09/23 18:59 06:59 18:59 Intake Total 830 310 20 Output Total 500 700 300 Balance 330 -390 -280 Weight 84 kg Intake: IV 10 10 20 Invasive Line 4 10 10 20 Oral 820 300 Output: Urine 500 700 300 Other: Voiding Method External Catheter External Catheter External Catheter # Voids 1 - Exam GENERAL EXAM: Alert, pleasant 78-year-old female, on 3 L nasal cannula, comfortable in no distress. HEAD: Normocephalic. EYES: Normal reaction of pupils, equal size. NOSE: Clear with pink turbinates. THROAT: No erythema or exudates. NECK: No masses, no JVD. CHEST: No chest wall deformity. LUNGS: Equal air entry with crackles in the bilateral bases. CVS: S1 and S2 normal with no audible murmur, regular rhythm. ABDOMEN: No hepatosplenomegaly, normal bowel sounds, no guarding or rigidity. SPINE: No scoliosis or deformity SKIN: No rashes CENTRAL NERVOUS SYSTEM: No focal deficits, tone is normal in all 4 extremities. EXTREMITIES: There is no peripheral edema. No clubbing, no cyanosis. Peripheral pulses are intact. - Labs CBC & Chem 7: 07/07/23 07:39 07/08/23 07:35 Labs: Abnormal Lab Results - Last 24 Hours (Table) 07/08/23 07/08/23 07/09/23 Range/Units 16:23 20:14 06:19 POC Glucose (mg/dL) 271 H 206 H 169 H (70-110) mg/dL 07/09/23 Range/Units 11:36 POC Glucose (mg/dL) 173 H (70-110) mg/dL Assessment and Plan Assessment: Acute on chronic hypoxemic respiratory failure, secondary to a combination of exacerbation of systolic congestive heart failure/biventricular heart failure as the patient has LV dysfunction with an ejection fraction of 35% addition to valvular insufficiency involving the mitral and aortic valve and severe tricuspid regurgitation with severe pulmonary hypertension. The RV is also severely dilated. Patient also has a component of acute COPD exacerbation. Alternating 3 L nasal cannula with BiPAP support 06/12 on 40% FiO2. Chest x-ray showing improved aeration and less pulmonary venous congestion. Her blood gases revealed a PaO2 of 92, pCO2 54, pH 7.47. Remains on Diamox and Demadex. Severe oxygen dependent COPD, and the patient has chronic hypoxic respiratory failure normally on 3 L Chronic hypoxemic respiratory failure secondary to above Severe pulmonary hypertension Acute on top of chronic kidney disease stage IV, patient is currently on Diamox and Lasix Anemia of chronic disease Paroxysmal atrial fibrillation, anticoagulated on Eliquis Chronically elevated troponins History of permanent pacemaker implantation, currently ventricularly paced Remote history of breast cancer, with previous lumpectomy and radiation Nonocclusive coronary artery disease Previous history of atrial fibrillation Plan: The patient was seen and evaluated ABGs and medications reviewed May qualify for BiPaP/AVAPS device at discharge Continue the current treatment plan We will continue to follow I have personally seen and examined the patient, performed the documentation and the assessment and plan as written. Number of minutes spent on the visit: 10.
--- NOTE | 2023-07-09 14:40 | XR ---
EXAMINATION TYPE: XR chest 1V portable DATE OF EXAM: 07/09/2023 COMPARISON: 07/05/2023 HISTORY: CHF TECHNIQUE: Single frontal view of the chest is obtained. FINDINGS: There is persistent cardiomegaly, pulmonary vascular congestion, mild interstitial edema and small bi lateral pleural effusions. There is a 2-lead cardiac pacemaker. There is no pneumothorax. IMPRESSION: Acute cardia pulmonary disease most likely CHF and essentially unchanged compared to pre vious.
[2023-07-09 16:42] LABS: Glucose,Whole Blood 220 mg/dL (70-110)
[2023-07-09 20:12] LABS: Glucose,Whole Blood 351 mg/dL (70-110)
[2023-07-09] MEDS: LORATADINE 10 MG TAB PO SCH (21:06)
[2023-07-09] MEDS: INSULIN DETEMIR (LEVEMIR) 100 UNIT/ML SYR SQ SCH (21:06)
[2023-07-09] MEDS: MONTELUKAST 10 MG TAB PO SCH (21:07)
[2023-07-09] MEDS: METOPROLOL SUCCINATE (ER) 25 MG TAB.ER.24H PO SCH (21:07)
[2023-07-10 06:08] LABS: Glucose,Whole Blood 65 mg/dL (70-110)
[2023-07-10] MEDS: INSULIN ASPART (NovoLOG) 100 UNIT/ML VIAL SQ SCH ×4 (06:09→20:45)
[2023-07-10 06:27] LABS: Glucose,Whole Blood 68 mg/dL (70-110)
[2023-07-10 06:51] LABS: Glucose,Whole Blood 95 mg/dL (70-110)
[2023-07-10] MEDS: APIXABAN 5 MG TAB PO SCH ×2 (08:18→20:45)
[2023-07-10] MEDS: CHOLECALCIFEROL 25 MCG (1000 IU) TABLET PO SCH (08:18)
[2023-07-10] MEDS: FAMOTIDINE 20 MG TAB PO SCH (08:18)
[2023-07-10] MEDS: TORSEMIDE 20 MG TAB PO SCH ×2 (08:18→15:22)
[2023-07-10] MEDS: methylPREDNISolone SOD SUCCI 40 MG/ML 1 ML VIAL IV SCH (08:18)
[2023-07-10] MEDS: TAMSULOSIN 0.4 MG CAP.ER.24H PO SCH (08:18)
[2023-07-10] MEDS: allopurinoL 300 MG TAB PO SCH (08:18)
[2023-07-10] MEDS: FERROUS SULFATE 325 MG TAB PO SCH (08:18)
[2023-07-10] MEDS: SYMBICORT 160-4.5 MCG INHALER INHALATION SCH ×2 (08:40→21:45)
[2023-07-10] MEDS: ALBUTEROL NEBULIZED 2.5 MG/3 ML INHALATION SCH ×4 (08:40→21:45)
--- NOTE | 2023-07-10 08:45 | XR ---
EXAMINATION TYPE: XR chest 1V portable DATE OF EXAM: 07/10/2023 COMPARISON: 07/09/2023 INDICATION: CHF TECHNIQUE: Single frontal view of the chest is obtained. FINDINGS: The heart size is enlarged. Pacemaker overlies left chest. The pulmonary vasculature is normal. Infiltrate with small effusion is present at the left base. Infiltrate at the right base. Findings ap pear stable. IMPRESSION: 1. Mild bibasilar infiltrates with cardiomegaly. Correlate for congestive heart failure, stable from comparison.
[2023-07-10] MEDS ORDERED: FUROSEMIDE 10 MG/ML 4 ML VIAL IV STA (10:59)
--- NOTE | 2023-07-10 10:59 | P.PN ---
Subjective Patient is seen for follow-up for acute kidney injury on chronic kidney disease. Renal function has improved. Serum creatinine is down to 1.5 from 2.6 at peak. Baseline creatinine around 1.4-1.5 mg/dL. No significant complaints today. Objective - Vital Signs Vital signs: Vital Signs Temp 98.3 F 07/10/23 08:00 Pulse 72 07/10/23 08:49 Resp 20 07/10/23 08:00 BP 94/58 07/10/23 08:00 Pulse Ox 94 L 07/10/23 08:40 FiO2 40 07/10/23 04:19 Intake & Output 07/09/23 07/10/23 07/10/23 18:59 06:59 18:59 Intake Total 360 20 Output Total 300 551 Balance 60 -531 Weight 86.5 kg Intake: IV 20 20 Invasive Line 4 20 20 Oral 340 Output: Urine 300 550 Stool 1 Other: Voiding Method External Catheter External Catheter External Catheter # Voids 1 # Bowel Movements 1 - Exam Patient is awake, comfortable, no acute distress Examination of the heart S1 and S2 Examination the lungs decreased breath sounds at the bases Abdomen is soft nontender Examination of lower extremity shows 1+ edema ANIMAL PHYSIOLOGIST exam grossly intact - Labs CBC & Chem 7: 07/07/23 07:39 07/08/23 07:35 Labs: Abnormal Lab Results - Last 24 Hours (Table) 07/09/23 07/09/23 07/09/23 Range/Units 11:36 16:40 20:09 POC Glucose (mg/dL) 173 H 220 H 351 H (70-110) mg/dL 07/10/23 07/10/23 Range/Units 06:03 06:25 POC Glucose (mg/dL) 65 L 68 L (70-110) mg/dL Assessment and Plan Assessment: 1. Acute kidney injury, cardiorenal, nonoliguric. Diuretics have been changed to oral. Blood pressure is not significantly low. No nephrotoxic agents noted. UA is benign and no evidence of obstruction on ultrasound. 2. Chronic kidney disease stage IV with baseline creatinine 1.5-1.7 mg/dL. Etiology is nephrosclerosis. 3. Acute hypoxic respiratory failure secondary to CHF exacerbation 4. Acute on chronic systolic CHF with ejection fraction 35-40% with severe left atrial allocation and severe right ventricular dilated dictation and severe pulmonary hypertension. 5. Chronic hypoxic respiratory failure maintained on home oxygen. Etiology is COPD and CHF 6. Paroxysmal atrial fibrillation maintained on eliquis. 7. Metabolic alkalosis associated with diuresis and chronic CO2 retention, maintained on IV Diamox Plan: Switched home Lasix to torsemide. Change Diamox to oral Maintain salt and fluid restriction. Check labs today and in a.m. Increased torsemide dose.
[2023-07-10 11:24] LABS: African American GFR (CKD) 42 (>60 ml/min/1.73 sqM); Anion Gap 6 mmol/L; Blood Urea Nitrogen 67 mg/dL (7-17); Carbon Dioxide 36 mmol/L (22-30); Chloride 100 mmol/L (98-107); Glucose 112 mg/dL (74-99); Non-African American GFR(CKD) 36 (>60 ml/min/1.73 sqM); Potassium 4.3 mmol/L (3.5-5.1); Sodium 142 mmol/L (137-145)
[2023-07-10 11:45] LABS: Glucose,Whole Blood 127 mg/dL (70-110)
[2023-07-10 11:54] VITALS: BMI 34.9
[2023-07-10] MEDS: ACETAMINOPHEN TAB 325 MG TAB PO PRN (12:58)
--- NOTE | 2023-07-10 13:50 | P.PN ---
Subjective Progress Note Date: 07/10/23 Principal diagnosis: CHF. The patient is seen today 07/05/2023 in follow-up on the regular medical floor. She is currently resting comfortably in bed. Currently on BiPAP 16/5 on 40% FiO2. Chest x-ray showing improvement of the congestive heart failure. Less pulmonary venous congestion. Sodium 143. Potassium 3.8. Bicarb 39. BUN 106. Creatinine 2.09. Glucose 177. She remains on DuoNeb inhalations, Symbicort, Solu-Medrol and Singulair. Anticoagulated with Eliquis. Continued on Lasix and Diamox. Making adequate urine. The patient is seen today 07/06/2023 in follow-up on the regular medical floor. She is currently resting in bed on 3 L nasal cannula. Off the BiPAP which she had been wearing 16/5 and 40% FiO2. Denies any worsening shortness of breath, cough or congestion. Sodium 143. Potassium 3.5. Bicarb 44. BUN 89. Creatinine 1.76. Glucose 184. She remains on Diamox and Lasix. Urine output 1600 ML's today thus far. Continued on DuoNeb inhalations, Symbicort, Solu- Medrol. Anticoagulated with Eliquis. Arterial blood gases obtained on 32% FiO2 revealed a P O2 of 64, pCO2 73 and a pH of 7.36. The patient is seen today 07/07/2023 in follow-up on the regular medical floor. She is awake and alert in no acute distress. Sitting up in bed. Currently on 3 L/m per nasal cannula. She states she did wear the BiPAP throughout the night 16/5 and 40% FiO2. Today's chest x-ray reveals overall stable exam with moderate cardiomegaly and small right greater than left pleural effusions with adjacent atelectasis. White count 10.1. Hemoccult 1110.7. Platelets 130. Sodium 140. Potassium 3.8. Bicarb 39. BUN 80. Creatinine 1.72. Glucose 107. She is continued on DuoNeb inhalations, Symbicort, Solu-Medrol. Anticoagulated with Eliquis. The patient is seen today 07/08/2023 in follow-up on the regular medical floor. She is currently sitting up in bed. Awake and alert. Family at the bedside. Denies any worsening shortness of breath, cough or congestion. Continue O2 saturations in the 90s on 3 L/m per nasal cannula. Afebrile. Hemodynamically stable. She is still utilizing the BiPAP at night 16/5 and 40% FiO2. Sodium 143. Potassium 3.9. Bicarb 36. BUN 74. Creatinine 1.53. Glucose 103. She is continued on DuoNeb inhalations, Symbicort, Solu-Medrol. Anticoagulated with Eliquis. The patient is seen today 07/09/2023 in follow-up on the regular medical floor. She is sitting up in bed. More awake and alert today. Denies any worsening shortness of breath, cough or congestion. She did utilize the BiPAP throughout the evening 16/5 and 40% FiO2. Most recent arterial blood gases revealed a PaO2 of 92, pCO2 54 and a pH of 7.47. Glucose 173. She remains on Symbicort, DuoNeb inhalations, Solu-Medrol and Singulair. Remains on diuretics. Anticoagulated with Eliquis. Progress note dated 07/10/2023. The patient is seen today in room 35. Currently, the patient's on 3 L of oxygen. She has BiPAP at the bedside, with settings of 16/5, and 40%. She's not receiving any IV fluids. The patient is not a very good historian, in no additional history can be obtained from her. She's not manifesting any signs or symptoms of respiratory difficulty or distress. Labs today include a sodium 142, potassium 4.3, chlorides 100, CO2 36, BUN 67, creatinine 1.4. Glucose 112. Calcium is 9. Chest x-ray shows findings consistent with a prior today's chest x-ray, from July 09. There is evidence of cardiomegaly, and some bilateral basilar infiltrates. Objective - Vital Signs Vital signs: Vital Signs Temp 97.9 F 07/10/23 11:29 Pulse 76 07/10/23 12:01 Resp 22 07/10/23 11:29 BP 105/68 07/10/23 11:29 Pulse Ox 91 L 07/10/23 11:29 FiO2 40 07/10/23 04:19 Intake & Output 07/09/23 07/10/23 07/10/23 18:59 06:59 18:59 Intake Total 360 20 240 Output Total 300 551 850 Balance 60 -531 -610 Weight 86.5 kg 86.5 kg Intake: IV 20 20 Invasive Line 4 20 20 Oral 340 240 Output: Urine 300 550 850 Stool 1 Other: Voiding Method External Catheter External Catheter External Catheter # Voids 1 # Bowel Movements 1 - Exam No acute distress, oriented 3. Currently on 3 L. No respiratory difficulty. Saturations are 94%. HEENT examination is grossly unremarkable. Neck supple. Full range of motion. No adenopathy thyromegaly or neck vein distention. Cardiovascular examination reveals regular rhythm rate. S1-S2 normal. No S3 or S4. No discernible murmur noted. Heart sounds are distant. Heart rate 76 bpm. Lungs reveal minimal basilar crackles. No wheezes. No rhonchi. Saturations are 94% on 3 L. Abdomen soft bowel sounds are heard. No masses or tenderness. Extremities are intact. No cyanosis clubbing or edema. Skin is without rash or lesion. Neurologic examination is brief but nonfocal. - Labs CBC & Chem 7: 07/07/23 07:39 07/10/23 11:00 Labs: Abnormal Lab Results - Last 24 Hours (Table) 07/09/23 07/09/23 07/10/23 Range/Units 16:40 20:09 06:03 Carbon Dioxide (22-30) mmol/L BUN (7-17) mg/dL Creatinine (0.52-1.04) mg/dL Glucose (74-99) mg/dL POC Glucose (mg/dL) 220 H 351 H 65 L (70-110) mg/dL 07/10/23 07/10/23 07/10/23 Range/Units 06:25 11:00 11:43 Carbon Dioxide 36 H (22-30) mmol/L BUN 67 H (7-17) mg/dL Creatinine 1.40 H (0.52-1.04) mg/dL Glucose 112 H (74-99) mg/dL POC Glucose (mg/dL) 68 L 127 H (70-110) mg/dL Assessment and Plan Assessment: Acute on chronic hypoxemic respiratory failure, secondary to a combination of exacerbation of systolic congestive heart failure/biventricular heart failure as the patient has LV dysfunction with an ejection fraction of 35% addition to valvular insufficiency involving the mitral and aortic valve and severe tricuspid regurgitation with severe pulmonary hypertension. The RV is also severely dilated. Patient also has a component of acute COPD exacerbation. Alternating 3 L nasal cannula with BiPAP support 16/5 on 40% FiO2. Chest x-ray showing improved aeration and less pulmonary venous congestion. Her blood gases revealed a PaO2 of 92, pCO2 54, pH 7.47. Remains on Diamox and Demadex. Severe oxygen dependent COPD, and the patient has chronic hypoxic respiratory failure normally on 3 L. Chronic hypoxemic respiratory failure. Severe pulmonary hypertension. Acute on top of chronic kidney disease stage IV. Anemia of chronic disease. Paroxysmal atrial fibrillation. Chronically elevated troponins. History of permanent pacemaker implantation. Remote history of breast cancer, with previous lumpectomy and radiation. Nonocclusive coronary artery disease. Previous history of atrial fibrillation. Plan: Plan dated 07/10/2023. The patient appears to be doing reasonably well. Not a particularly good historian. Currently on 3 L. BiPAP is set up at the bedside, with settings of 16/5 and 40%. The patient is not receiving any IV fluids. Labs, x-rays, and medications are reviewed. The patient's overall prognosis remains guarded. We will continue to follow the patient, and make recommendations along the way. Time with Patient: Less than 30
[2023-07-10 16:50] LABS: Glucose,Whole Blood 331 mg/dL (70-110)
[2023-07-10 20:22] LABS: Glucose,Whole Blood 261 mg/dL (70-110)
[2023-07-10] MEDS: METOPROLOL SUCCINATE (ER) 25 MG TAB.ER.24H PO SCH (20:44)
[2023-07-10] MEDS: MONTELUKAST 10 MG TAB PO SCH (20:44)
[2023-07-10] MEDS: INSULIN DETEMIR (LEVEMIR) 100 UNIT/ML SYR SQ SCH (20:45)
[2023-07-10] MEDS: LORATADINE 10 MG TAB PO SCH (20:45)
--- NOTE | 2023-07-10 22:24 | P.PN ---
Subjective Progress Note Date: 07/10/23 Patient is evaluated today resting in bed. Remains on 3L of oxygen which she wears chronically. Patient continues on IV diamox and oral lasix has been held. Nephrology following closely. She continues to report shortness of breath at rest and has not been able to tolerate getting out of bed. She is refusing to go to rehab on discharge wants to go home. Creatinine slowly improving 1.40 today. Had a chest xray today showing mild bibasilar infiltrates with cardiomegaly. Correlate for CHF, stable from comparison. Review of Systems Constitutional: Reports fatigue denied any fever. Cardio vascular: denied any chest pain, palpitations Gastrointestinal: denied any nausea, vomiting, diarrhea Pulmonary: Denied any shortness of breath cough Neurologic denied any new focal deficits All inpatient medications were reviewed and appropriate changes in these medications as dictated in the interval history and assessment and plan. PHYSICAL EXAMINATION: GENERAL: The patient is alert and oriented x3, not in any acute distress. Well developed, well nourished. HEENT: Pupils are round and equally reacting to light. EOMI. No scleral icterus. No conjunctival pallor. Normocephalic, atraumatic. No pharyngeal erythema. No thyromegaly. CARDIOVASCULAR: S1 and S2 present. No murmurs, rubs, or gallops. PULMONARY: Decreased aeration and scattered wheezing. ABDOMEN: Soft, nontender, nondistended, normoactive bowel sounds. No palpable organomegaly. MUSCULOSKELETAL: No joint swelling or deformity. EXTREMITIES: No cyanosis, clubbing, or pedal edema. NEUROLOGICAL: Gross neurological examination did not reveal any focal deficits. Diffuse weakness. SKIN: No rashes. Assessment Acute on chronic congestive heart failure diastolic dysfunction nephrology gave dose of IV lasix and has been resumed on demadex with an increase in dosing today. On IV diamox. Acute on chronic hypoxic respiratory failure multifactorial COPD, CHF exacerbation patient currently on 3L of oxygen. Severe COPD with chronic hypoxia on 3 L of oxygen at baseline pulmonary considering an AVAPs device on discharge Acute urinary retention on flomax and recommending to bladder scan Q6h and monitor for need for straight catheterization and urinary retention. Steroid induced hyperglycemia continue with accuchecks ACHS sliding scale insulin and recommending to add levemir at HS Elevated troponin secondary to type II [place] hypoxia Transient hyperkalemia currently improved at 3.5. Acute kidney injury secondary to ATN and cardiorenal syndrome. Continues on low sodium diet and 1500 cc fluid restriction. Nephrology monitoring closely. Repeat labs in AM Chronic kidney disease stage IV nephrology following closely. Paroxysmal atrial fibrillation on anticoagulation with eliquis BID. Sick 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 GI prophylaxis DVT prophylaxis as mentioned above Full Code The impression and plan of care has been dictated by Anne Marie Bell, Nurse Practitioner as directed. Dr. Sekou MD I have performed a history and physical examination and medical decision making of this patient, discussed the same with the dictator, and agree with the dictators assessment and plan as written, documented as a scribe. Based on total visit time, I have performed more than 50% of this visit. Objective - Vital Signs Vital signs: Vital Signs Temp 97.9 F 07/10/23 11:29 Pulse 76 07/10/23 12:01 Resp 22 07/10/23 11:29 BP 105/68 07/10/23 11:29 Pulse Ox 91 L 07/10/23 11:29 FiO2 40 07/10/23 04:19 Intake & Output 07/09/23 07/10/23 07/10/23 18:59 06:59 18:59 Intake Total 360 20 240 Output Total 300 551 850 Balance 60 -531 -610 Weight 86.5 kg 86.5 kg Intake: IV 20 20 Invasive Line 4 20 20 Oral 340 240 Output: Urine 300 550 850 Stool 1 Other: Voiding Method External Catheter External Catheter External Catheter # Voids 1 # Bowel Movements 1 - Labs CBC & Chem 7: 07/07/23 07:39 07/10/23 11:00 Labs: Abnormal Lab Results - Last 24 Hours (Table) 07/09/23 07/09/23 07/10/23 Range/Units 16:40 20:09 06:03 Carbon Dioxide (22-30) mmol/L BUN (7-17) mg/dL Creatinine (0.52-1.04) mg/dL Glucose (74-99) mg/dL POC Glucose (mg/dL) 220 H 351 H 65 L (70-110) mg/dL 07/10/23 07/10/23 07/10/23 Range/Units 06:25 11:00 11:43 Carbon Dioxide 36 H (22-30) mmol/L BUN 67 H (7-17) mg/dL Creatinine 1.40 H (0.52-1.04) mg/dL Glucose 112 H (74-99) mg/dL POC Glucose (mg/dL) 68 L 127 H (70-110) mg/dL Assessment and Plan Time with Patient: Less than 30
[2023-07-11 06:12] LABS: Glucose,Whole Blood 74 mg/dL (70-110)
[2023-07-11] MEDS: INSULIN ASPART (NovoLOG) 100 UNIT/ML VIAL SQ SCH ×4 (06:12→20:14)
[2023-07-11 07:11] LABS: Anisocytosis Slight; Basophils % (A) 0 %; Eosinophils # (A) 0.1 k/uL (0-0.7); Eosinophils % (A) 0 %; HCT 35.2 % (34.0-46.0); HGB 10.2 gm/dL (11.4-16.0); Hypochromasia Marked; Lymphocytes # (A) 0.6 k/uL (1.0-4.8); Lymphocytes % (A) 6 %; MCH 28.6 pg (25.0-35.0); MCV 98.8 fL (80.0-100.0); Macrocytosis Slight; Mean Platelet Volume 10.7; Monocytes # (A) 0.5 k/uL (0-1.0); Monocytes % (A) 5 %; Neutrophils # (A) 8.9 k/uL (1.3-7.7); Neutrophils % (A) 88 %; Platelet Count 112 k/uL (150-450); RBC 3.57 m/uL (3.80-5.40); RDW 17.5 % (11.5-15.5); WBC 10.2 k/uL (3.8-10.6)
[2023-07-11] MEDS: methylPREDNISolone SOD SUCCI 40 MG/ML 1 ML VIAL IV SCH (08:42)
[2023-07-11] MEDS: TORSEMIDE 20 MG TAB PO SCH ×2 (08:43→15:15)
[2023-07-11] MEDS: allopurinoL 300 MG TAB PO SCH (08:43)
[2023-07-11] MEDS: FAMOTIDINE 20 MG TAB PO SCH (08:43)
[2023-07-11] MEDS: TAMSULOSIN 0.4 MG CAP.ER.24H PO SCH (08:43)
[2023-07-11] MEDS: FERROUS SULFATE 325 MG TAB PO SCH (08:43)
[2023-07-11] MEDS: APIXABAN 5 MG TAB PO SCH ×2 (08:43→20:15)
[2023-07-11] MEDS: COLCHICINE 0.6 MG EACH PO SCH (08:44)
[2023-07-11] MEDS: CHOLECALCIFEROL 25 MCG (1000 IU) TABLET PO SCH (08:44)
[2023-07-11] MEDS: ALBUTEROL NEBULIZED 2.5 MG/3 ML INHALATION SCH ×4 (09:33→20:38)
[2023-07-11] MEDS: SYMBICORT 160-4.5 MCG INHALER INHALATION SCH ×2 (09:34→20:38)
[2023-07-11 09:50] LABS: African American GFR (CKD) 39 (>60 ml/min/1.73 sqM); Blood Urea Nitrogen 66 mg/dL (7-17); Chloride 98 mmol/L (98-107); Glucose 76 mg/dL (74-99); Magnesium 2.7 mg/dL (1.6-2.3); Non-African American GFR(CKD) 34 (>60 ml/min/1.73 sqM); Potassium 5.1 mmol/L (3.5-5.1); Sodium 144 mmol/L (137-145)
[2023-07-11 09:56] LABS: Anion Gap 11 mmol/L
[2023-07-11 10:04] LABS: Carbon Dioxide 35 mmol/L (22-30)
--- NOTE | 2023-07-11 11:37 | P.PN ---
Subjective Patient is seen for follow-up for acute kidney injury on chronic kidney disease. Renal function has improved. Serum creatinine is down to 1.47 from 2.6 at peak. Baseline creatinine around 1.4-1.5 mg/dL. No significant complaints today. Objective - Vital Signs Vital signs: Vital Signs Temp 98.2 F 07/11/23 08:33 Pulse 70 07/11/23 09:34 Resp 20 07/11/23 08:33 BP 102/64 07/11/23 08:33 Pulse Ox 97 07/11/23 09:42 FiO2 40 07/11/23 04:14 Intake & Output 07/10/23 07/11/23 07/11/23 18:59 06:59 18:59 Intake Total 240 40 358 Output Total 1250 500 500 Balance -1010 -460 -142 Weight 86.5 kg Intake: Oral 240 40 358 Output: Urine 1250 500 500 Other: Voiding Method External Catheter External Catheter External Catheter - Exam Patient is sleeping, comfortable, no acute distress Examination of the heart S1 and S2 Examination the lungs decreased breath sounds at the bases Abdomen is soft nontender Examination of lower extremity shows 1+ edema [employer] exam grossly intact - Labs CBC & Chem 7: 07/11/23 06:46 07/11/23 06:46 Labs: Abnormal Lab Results - Last 24 Hours (Table) 07/10/23 07/10/23 07/10/23 Range/Units 11:43 16:49 20:21 RBC (3.80-5.40) m/uL Hgb (11.4-16.0) gm/dL MCHC (31.0-37.0) g/dL RDW (11.5-15.5) % Plt Count (150-450) k/uL Neutrophils # (1.3-7.7) k/uL Lymphocytes # (1.0-4.8) k/uL Carbon Dioxide (22-30) mmol/L BUN (7-17) mg/dL Creatinine (0.52-1.04) mg/dL POC Glucose (mg/dL) 127 H 331 H 261 H (70-110) mg/dL Magnesium (1.6-2.3) mg/dL 07/11/23 07/11/23 Range/Units 06:46 06:46 RBC 3.57 L (3.80-5.40) m/uL Hgb 10.2 L (11.4-16.0) gm/dL MCHC 29.0 L (31.0-37.0) g/dL RDW 17.5 H (11.5-15.5) % Plt Count 112 L (150-450) k/uL Neutrophils # 8.9 H (1.3-7.7) k/uL Lymphocytes # 0.6 L (1.0-4.8) k/uL Carbon Dioxide 35 H (22-30) mmol/L BUN 66 H (7-17) mg/dL Creatinine 1.47 H (0.52-1.04) mg/dL POC Glucose (mg/dL) (70-110) mg/dL Magnesium 2.7 H (1.6-2.3) mg/dL Assessment and Plan Assessment: 1. Acute kidney injury, cardiorenal, nonoliguric. Diuretics have been changed to oral. Blood pressure is not significantly low. No nephrotoxic agents noted. UA is benign and no evidence of obstruction on ultrasound. 2. Chronic kidney disease stage IV with baseline creatinine 1.5-1.7 mg/dL. Etiology is nephrosclerosis. 3. Acute hypoxic respiratory failure secondary to CHF exacerbation 4. Acute on chronic systolic CHF with ejection fraction 35-40% with severe left atrial allocation and severe right ventricular dilated dictation and severe pulmonary hypertension. 5. Chronic hypoxic respiratory failure maintained on home oxygen. Etiology is COPD and CHF 6. Paroxysmal atrial fibrillation maintained on eliquis. 7. Metabolic alkalosis associated with diuresis and chronic CO2 retention, maintained on Diamox Plan: Switched home Lasix to torsemide. Change Diamox to oral Maintain salt and fluid restriction. Check labs today and in a.m. Increased torsemide dose.
[2023-07-11 12:01] LABS: Glucose,Whole Blood 224 mg/dL (70-110)
--- NOTE | 2023-07-11 12:48 | P.PN ---
Subjective Progress Note Date: 07/11/23 Principal diagnosis: CHF. The patient is seen today 07/05/2023 in follow-up on the regular medical floor. She is currently resting comfortably in bed. Currently on BiPAP 16/5 on 40% FiO2. Chest x-ray showing improvement of the congestive heart failure. Less pulmonary venous congestion. Sodium 143. Potassium 3.8. Bicarb 39. BUN 106. Creatinine 2.09. Glucose 177. She remains on DuoNeb inhalations, Symbicort, Solu-Medrol and Singulair. Anticoagulated with Eliquis. Continued on Lasix and Diamox. Making adequate urine. The patient is seen today 07/06/2023 in follow-up on the regular medical floor. She is currently resting in bed on 3 L nasal cannula. Off the BiPAP which she had been wearing 16/5 and 40% FiO2. Denies any worsening shortness of breath, cough or congestion. Sodium 143. Potassium 3.5. Bicarb 44. BUN 89. Creatinine 1.76. Glucose 184. She remains on Diamox and Lasix. Urine output 1600 ML's today thus far. Continued on DuoNeb inhalations, Symbicort, Solu- Medrol. Anticoagulated with Eliquis. Arterial blood gases obtained on 32% FiO2 revealed a P O2 of 64, pCO2 73 and a pH of 7.36. The patient is seen today 07/07/2023 in follow-up on the regular medical floor. She is awake and alert in no acute distress. Sitting up in bed. Currently on 3 L/m per nasal cannula. She states she did wear the BiPAP throughout the night 16/5 and 40% FiO2. Today's chest x-ray reveals overall stable exam with moderate cardiomegaly and small right greater than left pleural effusions with adjacent atelectasis. White count 10.1. Hemoccult 1110.7. Platelets 130. Sodium 140. Potassium 3.8. Bicarb 39. BUN 80. Creatinine 1.72. Glucose 107. She is continued on DuoNeb inhalations, Symbicort, Solu-Medrol. Anticoagulated with Eliquis. The patient is seen today 07/08/2023 in follow-up on the regular medical floor. She is currently sitting up in bed. Awake and alert. Family at the bedside. Denies any worsening shortness of breath, cough or congestion. Continue O2 saturations in the 90s on 3 L/m per nasal cannula. Afebrile. Hemodynamically stable. She is still utilizing the BiPAP at night 16/5 and 40% FiO2. Sodium 143. Potassium 3.9. Bicarb 36. BUN 74. Creatinine 1.53. Glucose 103. She is continued on DuoNeb inhalations, Symbicort, Solu-Medrol. Anticoagulated with Eliquis. The patient is seen today 07/09/2023 in follow-up on the regular medical floor. She is sitting up in bed. More awake and alert today. Denies any worsening shortness of breath, cough or congestion. She did utilize the BiPAP throughout the evening 16/5 and 40% FiO2. Most recent arterial blood gases revealed a PaO2 of 92, pCO2 54 and a pH of 7.47. Glucose 173. She remains on Symbicort, DuoNeb inhalations, Solu-Medrol and Singulair. Remains on diuretics. Anticoagulated with Eliquis. Progress note dated 07/10/2023. The patient is seen today in room 35. Currently, the patient's on 3 L of oxygen. She has BiPAP at the bedside, with settings of 16/5, and 40%. She's not receiving any IV fluids. The patient is not a very good historian, in no additional history can be obtained from her. She's not manifesting any signs or symptoms of respiratory difficulty or distress. Labs today include a sodium 142, potassium 4.3, chlorides 100, CO2 36, BUN 67, creatinine 1.4. Glucose 112. Calcium is 9. Chest x-ray shows findings consistent with a prior today's chest x-ray, from July 09. There is evidence of cardiomegaly, and some bilateral basilar infiltrates. Progress note dated 07/11/2023. 78-year-old female seen in room 385. The patient is currently on oxygen, at 3 L. She has a BiPAP at the bedside, with settings of 16/5, and 40%. Clinically, the patient is much more stable, and being evaluated for possible discharge. No additional history can be obtained from the patient, as she is a very poor historian. Currently labs include a white count 10.2, hemoglobin 10.2, hematocrit 35.2, and a platelet count of 112,000. Sodium 144, potassium 5.1, chlorides 98, CO2 35, BUN 66, and creatinine 1.47. Magnesium is 2.7. Glucose 224. No chest x-ray today. Objective - Vital Signs Vital signs: Vital Signs Temp 98.3 F 07/11/23 10:59 Pulse 66 07/11/23 10:59 Resp 20 07/11/23 10:59 BP 143/81 07/11/23 10:59 Pulse Ox 96 07/11/23 10:59 FiO2 40 07/11/23 04:14 Intake & Output 07/10/23 07/11/23 07/11/23 18:59 06:59 18:59 Intake Total 240 40 358 Output Total 1250 500 500 Balance -1010 -460 -142 Weight 86.5 kg Intake: Oral 240 40 358 Output: Urine 1250 500 500 Other: Voiding Method External Catheter External Catheter External Catheter - Exam No acute distress, oriented 3. Currently on 3 L. No respiratory difficulty. Saturations are 96%. HEENT examination is grossly unremarkable. Neck supple. Full range of motion. No adenopathy thyromegaly or neck vein distention. Cardiovascular examination reveals regular rhythm rate. S1-S2 normal. No S3 or S4. No discernible murmur noted. Heart sounds are distant. Heart rate 70 bpm. Lungs reveal minimal basilar crackles. No wheezes. No rhonchi. Saturations a re 96% on 3 L. Abdomen soft bowel sounds are heard. No masses or tenderness. Extremities are intact. No cyanosis clubbing or edema. Skin is without rash or lesion. Neurologic examination is brief but nonfocal. - Labs CBC & Chem 7: 07/11/23 06:46 07/11/23 06:46 Labs: Abnormal Lab Results - Last 24 Hours (Table) 07/10/23 07/10/23 07/11/23 Range/Units 16:49 20:21 06:46 RBC 3.57 L (3.80-5.40) m/uL Hgb 10.2 L (11.4-16.0) gm/dL MCHC 29.0 L (31.0-37.0) g/dL RDW 17.5 H (11.5-15.5) % Plt Count 112 L (150-450) k/uL Neutrophils # 8.9 H (1.3-7.7) k/uL Lymphocytes # 0.6 L (1.0-4.8) k/uL Carbon Dioxide (22-30) mmol/L BUN (7-17) mg/dL Creatinine (0.52-1.04) mg/dL POC Glucose (mg/dL) 331 H 261 H (70-110) mg/dL Magnesium (1.6-2.3) mg/dL 07/11/23 07/11/23 Range/Units 06:46 12:00 RBC (3.80-5.40) m/uL Hgb (11.4-16.0) gm/dL MCHC (31.0-37.0) g/dL RDW (11.5-15.5) % Plt Count (150-450) k/uL Neutrophils # (1.3-7.7) k/uL Lymphocytes # (1.0-4.8) k/uL Carbon Dioxide 35 H (22-30) mmol/L BUN 66 H (7-17) mg/dL Creatinine 1.47 H (0.52-1.04) mg/dL POC Glucose (mg/dL) 224 H (70-110) mg/dL Magnesium 2.7 H (1.6-2.3) mg/dL Assessment and Plan Assessment: Acute on chronic hypoxemic respiratory failure, secondary to a combination of exacerbation of systolic congestive heart failure/biventricular heart failure as the patient has LV dysfunction with an ejection fraction of 35% addition to valvular insufficiency involving the mitral and aortic valve and severe tricuspid regurgitation with severe pulmonary hypertension. The RV is also severely dilated. Patient also has a component of acute COPD exacerbation. Alternating 3 L nasal cannula with BiPAP support / on 40% FiO2. Chest x-ray showing improved aeration and less pulmonary venous congestion. Her blood gases revealed a PaO2 of 92, pCO2 54, pH 7.47. Remains on Diamox and Demadex. Severe oxygen dependent COPD, and the patient has chronic hypoxic respiratory failure normally on 3 L. Chronic hypoxemic respiratory failure. Severe pulmonary hypertension. Acute on top of chronic kidney disease stage IV. Anemia of chronic disease. Paroxysmal atrial fibrillation. Chronically elevated troponins. History of permanent pacemaker implantation. Remote history of breast cancer, with previous lumpectomy and radiation. Nonocclusive coronary artery disease. Previous history of atrial fibrillation. Plan: Plan dated 07/10/2023. The patient appears to be doing reasonably well. Not a particularly good historian. Currently on 3 L. BiPAP is set up at the bedside, with settings of 16/5 and 40%. The patient is not receiving any IV fluids. Labs, x-rays, and medications are reviewed. The patient's overall prognosis remains guarded. We will continue to follow the patient, and make recommendations along the way. Plan dated 07/11/2023. The patient is seen today in room 385. She remains on 3 L of oxygen. She also has a BiPAP at the bedside, with settings of 16/5, and 40%. The patient is being evaluated for possible discharge in the near future. Labs, x-rays, and medications are reviewed. The patient is a very poor historian. Despite that, she appears to be relatively stable. We will continue to follow the patient, and make recommendations along the way. The overall prognosis remains very guarded. Time with Patient: Less than 30
[2023-07-11 16:17] LABS: Glucose,Whole Blood 269 mg/dL (70-110)
[2023-07-11 19:58] LABS: Glucose,Whole Blood 406 mg/dL (70-110)
[2023-07-11] MEDS: INSULIN DETEMIR (LEVEMIR) 100 UNIT/ML SYR SQ SCH (20:14)
[2023-07-11] MEDS: MONTELUKAST 10 MG TAB PO SCH (20:14)
[2023-07-11] MEDS: LORATADINE 10 MG TAB PO SCH (20:14)
[2023-07-11] MEDS: acetaZOLAMIDE 250 MG TAB PO SCH (20:14)
[2023-07-11] MEDS: METOPROLOL SUCCINATE (ER) 25 MG TAB.ER.24H PO SCH (20:15)
--- NOTE | 2023-07-11 23:08 | P.PN ---
Subjective Progress Note Date: 07/11/23 Patient is evaluated today resting in bed. Remains on 3L of oxygen which she wears chronically. Patient continues on IV diamox and oral lasix has been held. Nephrology following closely. She continues to report shortness of breath at rest and has not been able to tolerate getting out of bed. She is refusing to go to rehab on discharge wants to go home. Creatinine slowly improving 1.40 today. Had a chest xray today showing mild bibasilar infiltrates with cardiomegaly. Correlate for CHF, stable from comparison. 07/11/2023 Patient evaluated today with family at the bedside. She was sitting up in the ch air. Baseline is essentially just transfers and uses wheelchair to get around her house. She does not want to go to rehab. On oral demadex 20 mg BID. Diamox transitioned to oral. Today labs showing BUN of 66 creatinine 1.47. Discussed palliative/hospice care with family and patient. Review of Systems Constitutional: Reports fatigue denied any fever. Cardio vascular: denied any chest pain, palpitations Gastrointestinal: denied any nausea, vomiting, diarrhea Pulmonary: Denied any shortness of breath cough Neurologic denied any new focal deficits All inpatient medications were reviewed and appropriate changes in these medications as dictated in the interval history and assessment and plan. PHYSICAL EXAMINATION: GENERAL: The patient is alert and oriented x3, not in any acute distress. Well developed, well nourished. HEENT: Pupils are round and equally reacting to light. EOMI. No scleral icterus. No conjunctival pallor. Normocephalic, atraumatic. No pharyngeal erythema. No thyromegaly. CARDIOVASCULAR: S1 and S2 present. No murmurs, rubs, or gallops. PULMONARY: Decreased aeration and scattered wheezing. ABDOMEN: Soft, nontender, nondistended, normoactive bowel sounds. No palpable organomegaly. MUSCULOSKELETAL: No joint swelling or deformity. EXTREMITIES: No cyanosis, clubbing, or pedal edema. NEUROLOGICAL: Gross neurological examination did not reveal any focal deficits. Diffuse weakness. SKIN: No rashes. Assessment Acute on chronic congestive heart failure diastolic dysfunction nephrology gave dose of IV lasix and has been resumed on demadex with an increase in dosing today. On PO diamox. Acute on chronic hypoxic respiratory failure multifactorial COPD, CHF exa cerbation patient currently on 3L of oxygen. Severe COPD with chronic hypoxia on 3 L of oxygen at baseline pulmonary considering an AVAPs device on discharge Acute urinary retention on flomax and recommending to bladder scan Q6h and monitor for need for straight catheterization and urinary retention. Steroid induced hyperglycemia continue with accuchecks ACHS sliding scale insulin and recommending to add levemir at HS Elevated troponin secondary to type II [place] hypoxia Transient hyperkalemia currently improved at 3.5. Acute kidney injury secondary to ATN and cardiorenal syndrome. Continues on low sodium diet and 1500 cc fluid restriction. Nephrology monitoring closely. Repeat labs in AM Chronic kidney disease stage IV nephrology following closely. Paroxysmal atrial fibrillation on anticoagulation with eliquis BID. Sick 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 GI prophylaxis DVT prophylaxis as mentioned above Full Code The impression and plan of care has been dictated by Anne Marie Bell, Nurse Practitioner as directed. Dr. Sekou MD I have performed a history and physical examination and medical decision making of this patient, discussed the same with the dictator, and agree with the dictators assessment and plan as written, documented as a scribe. Based on total visit time, I have performed more than 50% of this visit. Objective - Vital Signs Vital signs: Vital Signs Temp 98.2 F 07/11/23 20:00 Pulse 82 07/11/23 20:49 Resp 20 07/11/23 20:00 BP 110/58 07/11/23 20:00 Pulse Ox 96 07/11/23 20:00 FiO2 40 07/11/23 04:14 Intake & Output 07/11/23 07/11/23 07/12/23 06:59 18:59 06:59 Intake Total 40 358 Output Total 500 741 Balance -460 -383 Intake: Oral 40 358 Output: Urine 500 740 Stool 1 Other: Voiding Method External Catheter External Catheter External Catheter - Labs CBC & Chem 7: 07/11/23 06:46 07/11/23 06:46 Labs: Abnormal Lab Results - Last 24 Hours (Table) 07/11/23 07/11/23 07/11/23 Range/Units 06:46 06:46 12:00 RBC 3.57 L (3.80-5.40) m/uL Hgb 10.2 L (11.4-16.0) gm/dL MCHC 29.0 L (31.0-37.0) g/dL RDW 17.5 H (11.5-15.5) % Plt Count 112 L (150-450) k/uL Neutrophils # 8.9 H (1.3-7.7) k/uL Lymphocytes # 0.6 L (1.0-4.8) k/uL Carbon Dioxide 35 H (22-30) mmol/L BUN 66 H (7-17) mg/dL Creatinine 1.47 H (0.52-1.04) mg/dL POC Glucose (mg/dL) 224 H (70-110) mg/dL Magnesium 2.7 H (1.6-2.3) mg/dL 07/11/23 07/11/23 Range/Units 16:15 19:55 RBC (3.80-5.40) m/uL Hgb (11.4-16.0) gm/dL MCHC (31.0-37.0) g/dL RDW (11.5-15.5) % Plt Count (150-450) k/uL Neutrophils # (1.3-7.7) k/uL Lymphocytes # (1.0-4.8) k/uL Carbon Dioxide (22-30) mmol/L BUN (7-17) mg/dL Creatinine (0.52-1.04) mg/dL POC Glucose (mg/dL) 269 H 406 H (70-110) mg/dL Magnesium (1.6-2.3) mg/dL Assessment and Plan Time with Patient: Greater than 30
[2023-07-12 01:24] LABS: Anisocytosis Slight; Basophils % (A) 0 %; Eosinophils % (A) 0 %; HCT 31.8 % (34.0-46.0); HGB 9.8 gm/dL (11.4-16.0); Hypochromasia Marked; Lymphocytes # (A) 0.4 k/uL (1.0-4.8); Lymphocytes % (A) 3 %; MCV 96.9 fL (80.0-100.0); Macrocytosis Slight; Mean Platelet Volume 11.6; Monocytes # (A) 0.6 k/uL (0-1.0); Monocytes % (A) 5 %; Neutrophils # (A) 10.1 k/uL (1.3-7.7); Neutrophils % (A) 90 %; RBC 3.28 m/uL (3.80-5.40); RDW 17.4 % (11.5-15.5); WBC 11.3 k/uL (3.8-10.6)
[2023-07-12 04:33] LABS: Platelet Count 94 k/uL (150-450)
[2023-07-12 06:03] LABS: Glucose,Whole Blood 37 mg/dL (70-110)
[2023-07-12 06:04] LABS: Glucose,Whole Blood 44 mg/dL (70-110)
[2023-07-12] MEDS: INSULIN ASPART (NovoLOG) 100 UNIT/ML VIAL SQ SCH ×4 (06:18→23:35)
[2023-07-12 06:25] LABS: Glucose,Whole Blood 55 mg/dL (70-110)
[2023-07-12] MEDS: DEXTROSE 50% SYRINGE 50 ML IVP PRN (06:28)
[2023-07-12 06:47] LABS: Glucose,Whole Blood 122 mg/dL (70-110)
[2023-07-12 06:48] LABS: Anisocytosis Slight; Basophils # (A) 0.2 k/uL (0-0.2); Basophils % (A) 2 %; Eosinophils % (A) 0 %; HCT 32.5 % (34.0-46.0); HGB 9.7 gm/dL (11.4-16.0); Hypochromasia Marked; Lymphocytes # (A) 0.5 k/uL (1.0-4.8); Lymphocytes % (A) 5 %; MCH 29.1 pg (25.0-35.0); MCHC 29.8 g/dL (31.0-37.0); MCV 97.7 fL (80.0-100.0); Macrocytosis Slight; Mean Platelet Volume 10.4; Monocytes # (A) 0.6 k/uL (0-1.0); Monocytes % (A) 6 %; Neutrophils % (A) 87 %; Platelet Count 109 k/uL (150-450); RBC 3.32 m/uL (3.80-5.40); RDW 17.3 % (11.5-15.5); WBC 10.4 k/uL (3.8-10.6)
[2023-07-12] MEDS: ALBUTEROL NEBULIZED 2.5 MG/3 ML INHALATION SCH ×4 (08:22→19:35)
[2023-07-12] MEDS: SYMBICORT 160-4.5 MCG INHALER INHALATION SCH ×2 (08:22→19:35)
[2023-07-12] MEDS: methylPREDNISolone SOD SUCCI 40 MG/ML 1 ML VIAL IV SCH (10:10)
[2023-07-12] MEDS: CHOLECALCIFEROL 25 MCG (1000 IU) TABLET PO SCH (10:10)
[2023-07-12] MEDS: allopurinoL 300 MG TAB PO SCH (10:11)
[2023-07-12] MEDS: TAMSULOSIN 0.4 MG CAP.ER.24H PO SCH (10:12)
[2023-07-12] MEDS: FERROUS SULFATE 325 MG TAB PO SCH (10:12)
[2023-07-12] MEDS: FAMOTIDINE 20 MG TAB PO SCH (10:12)
[2023-07-12] MEDS: APIXABAN 5 MG TAB PO SCH ×2 (10:13→20:19)
[2023-07-12] MEDS: acetaZOLAMIDE 250 MG TAB PO SCH ×2 (10:13→20:19)
[2023-07-12] MEDS: TORSEMIDE 20 MG TAB PO SCH ×2 (10:14→17:03)
[2023-07-12 11:28] LABS: Glucose,Whole Blood 154 mg/dL (70-110)
--- NOTE | 2023-07-12 11:54 | P.PN ---
Subjective Patient is seen for follow-up for acute kidney injury on chronic kidney disease. Renal function has improved. Serum creatinine is down to 1.47 from 2.6 at peak. Baseline creatinine around 1.4-1.5 mg/dL. No significant complaints today. Maintained on torsemide 20 mg twice a day. 24 hour urine output documented at 1.3 L Objective - Vital Signs Vital signs: Vital Signs Temp 98.3 F 07/12/23 04:00 Pulse 78 07/12/23 08:36 Resp 16 07/12/23 08:36 BP 107/63 07/12/23 04:00 Pulse Ox 95 07/12/23 08:22 FiO2 40 07/12/23 08:22 Intake & Output 07/11/23 07/12/23 07/12/23 18:59 06:59 18:59 Intake Total 358 360 Output Total 741 600 Balance -383 -600 360 Weight 85.5 kg Intake: Oral 358 360 Output: Urine 740 600 Stool 1 Other: Voiding Method External Catheter External Catheter # Bowel Movements 1 - Exam Patient is awake, comfortable, no acute distress Examination of the heart S1 and S2 Examination the lungs decreased breath sounds at the bases Abdomen is soft nontender Examination of lower extremity shows 1+ edema WIRE [employer] exam grossly intact - Labs CBC & Chem 7: 07/12/23 06:11 07/11/23 06:46 Labs: Abnormal Lab Results - Last 24 Hours (Table) 07/11/23 07/11/23 07/11/23 Range/Units 12:00 16:15 19:55 WBC (3.8-10.6) k/uL RBC (3.80-5.40) m/uL Hgb (11.4-16.0) gm/dL Hct (34.0-46.0) % MCHC (31.0-37.0) g/dL RDW (11.5-15.5) % Plt Count (150-450) k/uL Neutrophils # (1.3-7.7) k/uL Lymphocytes # (1.0-4.8) k/uL POC Glucose (mg/dL) 224 H 269 H 406 H (70-110) mg/dL 07/12/23 07/12/23 07/12/23 Range/Units 00:45 06:01 06:02 WBC 11.3 H (3.8-10.6) k/uL RBC 3.28 L (3.80-5.40) m/uL Hgb 9.8 L (11.4-16.0) gm/dL Hct 31.8 L (34.0-46.0) % MCHC (31.0-37.0) g/dL RDW 17.4 H (11.5-15.5) % Plt Count 94 L (150-450) k/uL Neutrophils # 10.1 H (1.3-7.7) k/uL Lymphocytes # 0.4 L (1.0-4.8) k/uL POC Glucose (mg/dL) 37 L 44 L (70-110) mg/dL 07/12/23 07/12/23 07/12/23 Range/Units 06:11 06:24 06:46 WBC (3.8-10.6) k/uL RBC 3.32 L (3.80-5.40) m/uL Hgb 9.7 L (11.4-16.0) gm/dL Hct 32.5 L (34.0-46.0) % MCHC 29.8 L (31.0-37.0) g/dL RDW 17.3 H (11.5-15.5) % Plt Count 109 L (150-450) k/uL Neutrophils # 9.0 H (1.3-7.7) k/uL Lymphocytes # 0.5 L (1.0-4.8) k/uL POC Glucose (mg/dL) 55 L 122 H (70-110) mg/dL 07/12/23 Range/Units 11:26 WBC (3.8-10.6) k/uL RBC (3.80-5.40) m/uL Hgb (11.4-16.0) gm/dL Hct (34.0-46.0) % MCHC (31.0-37.0) g/dL RDW (11.5-15.5) % Plt Count (150-450) k/uL Neutrophils # (1.3-7.7) k/uL Lymphocytes # (1.0-4.8) k/uL POC Glucose (mg/dL) 154 H (70-110) mg/dL Assessment and Plan Assessment: 1. Acute kidney injury, cardiorenal, nonoliguric. Diuretics have been changed to oral. Blood pressure is not significantly low. No nephrotoxic agents noted. UA is benign and no evidence of obstruction on ultrasound. 2. Chronic kidney disease stage IV with baseline creatinine 1.5-1.7 mg/dL. Etiology is nephrosclerosis. 3. Acute hypoxic respiratory failure secondary to CHF exacerbation 4. Acute on chronic systolic CHF with ejection fraction 35-40% with severe left atrial allocation and severe right ventricular dilated dictation and severe pulmonary hypertension. 5. Chronic hypoxic respiratory failure maintained on home oxygen. Etiology is COPD and CHF 6. Paroxysmal atrial fibrillation maintained on eliquis. 7. Metabolic alkalosis associated with diuresis and chronic CO2 retention, maintained on Diamox Plan: Switched home Lasix to torsemide. Changed Diamox to oral Maintain salt and fluid restriction. Check labs today and in a.m.
--- NOTE | 2023-07-12 11:55 | P.PN ---
Subjective Progress Note Date: 07/12/23 Principal diagnosis: CHF. The patient is seen today 07/05/2023 in follow-up on the regular medical floor. She is currently resting comfortably in bed. Currently on BiPAP 16/5 on 40% FiO2. Chest x-ray showing improvement of the congestive heart failure. Less pulmonary venous congestion. Sodium 143. Potassium 3.8. Bicarb 39. BUN 106. Creatinine 2.09. Glucose 177. She remains on DuoNeb inhalations, Symbicort, Solu-Medrol and Singulair. Anticoagulated with Eliquis. Continued on Lasix and Diamox. Making adequate urine. The patient is seen today 07/06/2023 in follow-up on the regular medical floor. She is currently resting in bed on 3 L nasal cannula. Off the BiPAP which she had been wearing 16/5 and 40% FiO2. Denies any worsening shortness of breath, cough or congestion. Sodium 143. Potassium 3.5. Bicarb 44. BUN 89. Creatinine 1.76. Glucose 184. She remains on Diamox and Lasix. Urine output 1600 ML's today thus far. Continued on DuoNeb inhalations, Symbicort, Solu- Medrol. Anticoagulated with Eliquis. Arterial blood gases obtained on 32% FiO2 revealed a P O2 of 64, pCO2 73 and a pH of 7.36. The patient is seen today 07/07/2023 in follow-up on the regular medical floor. She is awake and alert in no acute distress. Sitting up in bed. Currently on 3 L/m per nasal cannula. She states she did wear the BiPAP throughout the night 16/5 and 40% FiO2. Today's chest x-ray reveals overall stable exam with moderate cardiomegaly and small right greater than left pleural effusions with adjacent atelectasis. White count 10.1. Hemoccult 1110.7. Platelets 130. Sodium 140. Potassium 3.8. Bicarb 39. BUN 80. Creatinine 1.72. Glucose 107. She is continued on DuoNeb inhalations, Symbicort, Solu-Medrol. Anticoagulated with Eliquis. The patient is seen today 07/08/2023 in follow-up on the regular medical floor. She is currently sitting up in bed. Awake and alert. Family at the bedside. Denies any worsening shortness of breath, cough or congestion. Continue O2 saturations in the 90s on 3 L/m per nasal cannula. Afebrile. Hemodynamically stable. She is still utilizing the BiPAP at night 16/5 and 40% FiO2. Sodium 143. Potassium 3.9. Bicarb 36. BUN 74. Creatinine 1.53. Glucose 103. She is continued on DuoNeb inhalations, Symbicort, Solu-Medrol. Anticoagulated with Eliquis. The patient is seen today 07/09/2023 in follow-up on the regular medical floor. She is sitting up in bed. More awake and alert today. Denies any worsening shortness of breath, cough or congestion. She did utilize the BiPAP throughout the evening 16/5 and 40% FiO2. Most recent arterial blood gases revealed a PaO2 of 92, pCO2 54 and a pH of 7.47. Glucose 173. She remains on Symbicort, DuoNeb inhalations, Solu-Medrol and Singulair. Remains on diuretics. Anticoagulated with Eliquis. Progress note dated 07/10/2023. The patient is seen today in room 35. Currently, the patient's on 3 L of oxygen. She has BiPAP at the bedside, with settings of 16/5, and 40%. She's not receiving any IV fluids. The patient is not a very good historian, in no additional history can be obtained from her. She's not manifesting any signs or symptoms of respiratory difficulty or distress. Labs today include a sodium 142, potassium 4.3, chlorides 100, CO2 36, BUN 67, creatinine 1.4. Glucose 112. Calcium is 9. Chest x-ray shows findings consistent with a prior today's chest x-ray, from July 09. There is evidence of cardiomegaly, and some bilateral basilar infiltrates. Progress note dated 07/11/2023. 78-year-old female seen in room 385. The patient is currently on oxygen, at 3 L. She has a BiPAP at the bedside, with settings of 16/5, and 40%. Clinically, the patient is much more stable, and being evaluated for possible discharge. No additional history can be obtained from the patient, as she is a very poor historian. Currently labs include a white count 10.2, hemoglobin 10.2, hematocrit 35.2, and a platelet count of 112,000. Sodium 144, potassium 5.1, chlorides 98, CO2 35, BUN 66, and creatinine 1.47. Magnesium is 2.7. Glucose 224. No chest x-ray today. Progress note dated 07/12/2023. 78-year-old female seen in room 385. Currently, the patient's on 3 L of oxygen. She did use BiPAP last night, as she has, the last several nights. BiPAP settings of 16/5, and 40%. The patient is not receiving any IV fluids. Apparently, the patient has agreed to be discharged to rehabilitation. She is sitting in a chair next to her hospital bed. She is in no distress. White count 10.4, hemoglobin 9.7, hematocrit 32.5, and platelet count 109,000. Most recent blood glucose 154. Objective - Vital Signs Vital signs: Vital Signs Temp 98.3 F 07/12/23 04:00 Pulse 78 07/12/23 08:36 Resp 16 07/12/23 08:36 BP 107/63 07/12/23 04:00 Pulse Ox 95 07/12/23 08:22 FiO2 40 07/12/23 08:22 Intake & Output 07/11/23 07/12/23 07/12/23 18:59 06:59 18:59 Intake Total 358 360 Output Total 741 600 Balance -383 -600 360 Weight 85.5 kg Intake: Oral 358 360 Output: Urine 740 600 Stool 1 Other: Voiding Method External Catheter External Catheter # Bowel Movements 1 - Exam No acute distress, oriented 3. Currently on 3 L. No respiratory difficulty. Saturations are 96%. HEENT examination is grossly unremarkable. Neck supple. Full range of motion. No adenopathy thyromegaly or neck vein distention. Cardiovascular examination reveals regular rhythm rate. S1-S2 normal. No S3 or S4. No discernible murmur noted. Heart sounds are distant. Heart rate of 78 bpm. Lungs reveal minimal basilar crackles. No wheezes. No rhonchi. Saturations are 96% on 3 L. Abdomen soft bowel sounds are heard. No masses or tenderness. Extremities are intact. No cyanosis clubbing or edema. Skin is without rash or lesion. Neurologic examination is brief but nonfocal. - Labs CBC & Chem 7: 07/12/23 06:11 07/11/23 06:46 Labs: Abnormal Lab Results - Last 24 Hours (Table) 07/11/23 07/11/23 07/11/23 Range/Units 12:00 16:15 19:55 WBC (3.8-10.6) k/uL RBC (3.80-5.40) m/uL Hgb (11.4-16.0) gm/dL Hct (34.0-46.0) % MCHC (31.0-37.0) g/dL RDW (11.5-15.5) % Plt Count (150-450) k/uL Neutrophils # (1.3-7.7) k/uL Lymphocytes # (1.0-4.8) k/uL POC Glucose (mg/dL) 224 H 269 H 406 H (70-110) mg/dL 07/12/23 07/12/23 07/12/23 Range/Units 00:45 06:01 06:02 WBC 11.3 H (3.8-10.6) k/uL RBC 3.28 L (3.80-5.40) m/uL Hgb 9.8 L (11.4-16.0) gm/dL Hct 31.8 L (34.0-46.0) % MCHC (31.0-37.0) g/dL RDW 17.4 H (11.5-15.5) % Plt Count 94 L (150-450) k/uL Neutrophils # 10.1 H (1.3-7.7) k/uL Lymphocytes # 0.4 L (1.0-4.8) k/uL POC Glucose (mg/dL) 37 L 44 L (70-110) mg/dL 07/12/23 07/12/23 07/12/23 Range/Units 06:11 06:24 06:46 WBC (3.8-10.6) k/uL RBC 3.32 L (3.80-5.40) m/uL Hgb 9.7 L (11.4-16.0) gm/dL Hct 32.5 L (34.0-46.0) % MCHC 29.8 L (31.0-37.0) g/dL RDW 17.3 H (11.5-15.5) % Plt Count 109 L (150-450) k/uL Neutrophils # 9.0 H (1.3-7.7) k/uL Lymphocytes # 0.5 L (1.0-4.8) k/uL POC Glucose (mg/dL) 55 L 122 H (70-110) mg/dL 07/12/23 Range/Units 11:26 WBC (3.8-10.6) k/uL RBC (3.80-5.40) m/uL Hgb (11.4-16.0) gm/dL Hct (34.0-46.0) % MCHC (31.0-37.0) g/dL RDW (11.5-15.5) % Plt Count (150-450) k/uL Neutrophils # (1.3-7.7) k/uL Lymphocytes # (1.0-4.8) k/uL POC Glucose (mg/dL) 154 H (70-110) mg/dL Assessment and Plan Assessment: Acute on chronic hypoxemic respiratory failure, secondary to a combination of exacerbation of systolic congestive heart failure/biventricular heart failure as the patient has LV dysfunction with an ejection fraction of 35% addition to valvular insufficiency involving the mitral and aortic valve and severe tricuspid regurgitation with severe pulmonary hypertension. The RV is also severely dilated. Patient also has a component of acute COPD exacerbation. Alternating 3 L nasal cannula with BiPAP support 16/5 on 40% FiO2. Chest x-ray showing improved aeration and less pulmonary venous congestion. Her blood gases revealed a PaO2 of 92, pCO2 54, pH 7.47. Remains on Diamox and Demadex. Severe oxygen dependent COPD, and the patient has chronic hypoxic respiratory failure normally on 3 L. Chronic hypoxemic respiratory failure. Severe pulmonary hypertension. Acute on top of chronic kidney disease stage IV. Anemia of chronic disease. Paroxysmal atrial fibrillation. Chronically elevated troponins. History of permanent pacemaker implantation. Remote history of breast cancer, with previous lumpectomy and radiation. Nonocclusive coronary artery disease. Previous history of atrial fibrillation. Plan: Plan dated 07/10/2023. The patient appears to be doing reasonably well. Not a particularly good historian. Currently on 3 L. BiPAP is set up at the bedside, with settings of 16/5 and 40%. The patient is not receiving any IV fluids. Labs, x-rays, and medications are reviewed. The patient's overall prognosis remains guarded. We will continue to follow the patient, and make recommendations along the way. Plan dated 07/11/2023. The patient is seen today in room 385. She remains on 3 L of oxygen. She also has a BiPAP at the bedside, with settings of 16/5, and 40%. The patient is being evaluated for possible discharge in the near future. Labs, x-rays, and medications are reviewed. The patient is a very poor historian. Despite that, she appears to be relatively stable. We will continue to follow the patient, and make recommendations along the way. The overall prognosis remains very guarded. Plan dated 07/12/2023. The patient is seen today in room 385. She sitting in a chair, next to her hospital bed. She is currently on oxygen, at 3 L. Saturations are between 95 and 96%. Labs, x-rays, and medications are reviewed. Apparently, the patient has decided to be discharged to a rehab facility. We will continue to follow the patient, and make recommendations along the way. The patient's overall prognosis remains very guarded. Time with Patient: Less than 30
[2023-07-12 12:51] LABS: African American GFR (CKD) 42 (>60 ml/min/1.73 sqM); Anion Gap 5 mmol/L; Blood Urea Nitrogen 64 mg/dL (7-17); Calcium 8.9 mg/dL (8.4-10.2); Chloride 99 mmol/L (98-107); Non-African American GFR(CKD) 36 (>60 ml/min/1.73 sqM); Potassium 3.3 mmol/L (3.5-5.1); Sodium 144 mmol/L (137-145)
[2023-07-12] MEDS: ACETAMINOPHEN TAB 325 MG TAB PO PRN ×2 (12:55→20:18)
[2023-07-12 13:06] LABS: Glucose 30 mg/dL (74-99)
[2023-07-12 13:07] LABS: Carbon Dioxide 40 mmol/L (22-30)
--- NOTE | 2023-07-12 14:14 | P.CONS ---
History of Present Illness - Reason for Consult Consult date: 07/12/23 GI bleed Requesting physician: Anne Marie Bell - Chief Complaint Shortness of breath - History of Present Illness This is a pleasant 78-year-old female who came into the emergency department on 06/25/2023 and was admitted for shortness of breath and respiratory distress. She has a past medical history including atrial fibrillation on Eliquis, asthma, heart failure, COPD, GERD, history of breast cancer, coronary artery disease status post heart cath and pacemaker. Patient has been here for the last 16 days of pulmonology following. Gastroenterology was consulted for GI bleed because nursing reported that patient had a dark stool yesterday evening. Patient states that she is on iron and she always has dark stools. She has no history of peptic ulcer disease and reports no abdominal pain, rectal bleeding, nausea or vomiting. Hemoglobin on admission was 10.6 and has predominantly been running in the low 10s, with a hemoglobin yesterday of 9.8 and today 9.7. Review of Systems REVIEW OF SYSTEMS: CARDIOPULMONARY: No chest pain, shortness of breath. Gastrointestinal: No abdominal pain. no associated abdominal pain. No nausea or vomiting. No hematemesis, coffee-ground emesis. No rectal bleeding, or melena. GENITOURINARY: No dysuria or hematuria. MUSCULOSKELETAL: Reports normal range of motion., Joint pain. SKIN: No rashes. No jaundice. ENDOCRINE: No chills, fevers. No excessive weight gain or loss. No polydipsia or polyuria. PSYCHIATRIC: Unremarkable. NEUROLOGY: No change in mental status. Denies dizziness, headache. ENT: Vision unremarkable. CONSTITUTIONAL: No recent weight loss. No fever, chills, night sweats. Past Medical History Past Medical History: Atrial Fibrillation, Asthma, Cancer, Heart Failure, COPD, GERD/Reflux, Skin Disorder Additional Past Medical History / Comment(s): COPD, asthma, breast cancer-right lumpectomy and radiation therapy 25 years ago, wears 3L NC at home, chronic atrial fibrillation, CHF (systolic ). Arthritis, dry patch on right leg, gout History of Any Multi-Drug Resistant Organisms: None Reported Past Surgical History: Section, Heart Catheterization, Hernia Repair, Pacemaker Additional Past Surgical History / Comment(s): left hand surgery for broken index and middle finger Past Anesthesia/Blood Transfusion Reactions: No Reported Reaction Type of Cardiac Device: Permanent Pacemaker Device Placement Date:: 07/2021 Smoking Status: Former smoker - Past Family History Mother Family Medical History: Diabetes Mellitus Medications and Allergies Home Medications Medication Instructions Recorded Confirmed Type Apixaban [Eliquis] 5 mg PO BID 11/12/22 06/25/23 History Cholecalciferol [Vitamin D3 (25 75 mcg PO DAILY 11/12/22 06/25/23 History Mcg = 1000 Iu)] Colchicine 0.6 mg PO TUTH 11/12/22 06/25/23 History Ferrous Sulfate [Iron (65 MG 325 mg PO DAILY 11/12/22 06/25/23 History Elemental)] Fexofenadine HCl [Jamee Allergy] 180 mg PO HS 11/12/22 06/25/23 History Ipratropium/Albuter 20-100Mcg 1 puff INHALATION RT-QID PRN 11/12/22 06/25/23 History [Combivent Respimat 20-100Mcg Inhaler] Magnesium Oxide [Mag-Ox] 400 mg PO DAILY 11/12/22 06/25/23 History Metoprolol Succinate [Metoprolol 75 mg PO HS 11/12/22 06/25/23 History Succinate ER] Montelukast [Singulair] 10 mg PO HS 11/12/22 06/25/23 History Pantoprazole [Protonix] 40 mg PO BID 11/12/22 06/25/23 History Potassium Chloride ER [K-Dur 20] 20 meq PO DAILY 11/12/22 06/25/23 History Power C Supplement 2 tab PO DAILY 11/12/22 06/25/23 History Vitamin B Complex 1 cap PO DAILY 11/12/22 06/25/23 History allopurinoL [Zyloprim] 150 mg PO DAILY 11/12/22 06/25/23 History Albuterol Inhaler [Ventolin Hfa 2 puff INHALATION RT-QID PRN #1 11/19/22 06/25/23 Rx Inhaler] each Furosemide [Lasix] 40 mg PO BID@0900,1600 #60 tab 11/19/22 06/25/23 Rx Ipratropium-Albuterol Nebulize 3 ml INHALATION RT-Q3H 06/25/23 06/25/23 History [Duoneb 0.5 mg-3 mg/3 ml Soln] Allergies Allergy/AdvReac Type Severity Reaction Status Date / Time aspirin Allergy Anaphylaxis Verified 06/25/23 22:13 ibuprofen Allergy Anaphylaxis Verified 06/25/23 22:13 Physical Exam Vitals: Vital Signs Temp Pulse Pulse Resp BP Pulse Ox FiO2 07/12/23 04:44 40 07/12/23 04:00 98.3 F 71 16 107/63 95 40 07/12/23 00:33 40 07/12/23 00:00 98.1 F 72 18 103/56 94 L 07/11/23 20:49 82 07/11/23 20:39 80 07/11/23 20:00 98.2 F 73 20 110/58 96 07/11/23 15:59 82 07/11/23 15:50 82 07/11/23 15:18 98.0 F 72 20 105/54 94 L 07/11/23 13:09 76 07/11/23 13:00 76 07/11/23 10:59 98.3 F 66 20 143/81 96 07/11/23 09:45 70 07/11/23 09:42 97 07/11/23 09:34 70 07/11/23 08:33 98.2 F 81 20 102/64 97 Intake and Output 07/11/23 07/12/23 07/12/23 22:59 06:59 14:59 Output Total 240 600 Balance -240 -600 Output: Urine 240 600 Other: Voiding Method External Catheter External Catheter # Bowel Movements 1 Weight 85.5 kg General appearance: The patient is alert, oriented, appears in no acute distress. HET: Head is normocephalic and atraumatic. Conjunctiva pink. Sclera anicteric. Neck: Supple without lymphadenopathy. Trachea midline. Heart: Regular. Lungs: Equal expansion, normal respiratory effort. Abdomen: Soft, nontender, nondistended with bowel sounds. No guarding or rigidity. Skin: No rashes. No jaundice. Extremities: Normal skin color and turgor. No pedal edema. Neurological: No focal deficits. Alert and oriented x3. Results CBC & Chem 7: 07/12/23 06:11 07/12/23 06:11 Labs: Abnormal Lab Results - Last 24 Hours (Table) 07/11/23 07/11/23 07/11/23 Range/Units 06:46 12:00 16:15 WBC (3.8-10.6) k/uL RBC (3.80-5.40) m/uL Hgb (11.4-16.0) gm/dL Hct (34.0-46.0) % MCHC (31.0-37.0) g/dL RDW (11.5-15.5) % Plt Count (150-450) k/uL Neutrophils # (1.3-7.7) k/uL Lymphocytes # (1.0-4.8) k/uL Carbon Dioxide 35 H (22-30) mmol/L BUN 66 H (7-17) mg/dL Creatinine 1.47 H (0.52-1.04) mg/dL POC Glucose (mg/dL) 224 H 269 H (70-110) mg/dL Magnesium 2.7 H (1.6-2.3) mg/dL 07/11/23 07/12/23 07/12/23 Range/Units 19:55 00:45 06:01 WBC 11.3 H (3.8-10.6) k/uL RBC 3.28 L (3.80-5.40) m/uL Hgb 9.8 L (11.4-16.0) gm/dL Hct 31.8 L (34.0-46.0) % MCHC (31.0-37.0) g/dL RDW 17.4 H (11.5-15.5) % Plt Count 94 L (150-450) k/uL Neutrophils # 10.1 H (1.3-7.7) k/uL Lymphocytes # 0.4 L (1.0-4.8) k/uL Carbon Dioxide (22-30) mmol/L BUN (7-17) mg/dL Creatinine (0.52-1.04) mg/dL POC Glucose (mg/dL) 406 H 37 L (70-110) mg/dL Magnesium (1.6-2.3) mg/dL 07/12/23 07/12/23 07/12/23 Range/Units 06:02 06:11 06:24 WBC (3.8-10.6) k/uL RBC 3.32 L (3.80-5.40) m/uL Hgb 9.7 L (11.4-16.0) gm/dL Hct 32.5 L (34.0-46.0) % MCHC 29.8 L (31.0-37.0) g/dL RDW 17.3 H (11.5-15.5) % Plt Count 109 L (150-450) k/uL Neutrophils # 9.0 H (1.3-7.7) k/uL Lymphocytes # 0.5 L (1.0-4.8) k/uL Carbon Dioxide (22-30) mmol/L BUN (7-17) mg/dL Creatinine (0.52-1.04) mg/dL POC Glucose (mg/dL) 44 L 55 L (70-110) mg/dL Magnesium (1.6-2.3) mg/dL 07/12/23 Range/Units 06:46 WBC (3.8-10.6) k/uL RBC (3.80-5.40) m/uL Hgb (11.4-16.0) gm/dL Hct (34.0-46.0) % MCHC (31.0-37.0) g/dL RDW (11.5-15.5) % Plt Count (150-450) k/uL Neutrophils # (1.3-7.7) k/uL Lymphocytes # (1.0-4.8) k/uL Carbon Dioxide (22-30) mmol/L BUN (7-17) mg/dL Creatinine (0.52-1.04) mg/dL POC Glucose (mg/dL) 122 H (70-110) mg/dL Magnesium (1.6-2.3) mg/dL Assessment and Plan (1) Anemia Narrative/Plan: 78-year-old female with multiple comorbidities who has been admitted for the l ast 16 days and came in with anemia and states has a history of chronic anemia on iron at home. Patient's labs are consistent with a normocytic normochromic anemia likely dealing with anemia of chronic disease. Patient had a reported dark stool per nursing yesterday evening and gastroenterology consulted however patient has no signs or symptoms of a GI bleed hemoglobin is stable and likely related to iron supplementation. There is no plans for endoscopic evaluation. Current Visit: Yes Status: Acute Code(s): D64.9 - ANEMIA, UNSPECIFIED SNOMED Code(s): 510989236 (2) Acute exacerbation of chronic obstructive pulmonary disease Current Visit: Yes Status: Acute Code(s): J44.1 - CHRONIC OBSTRUCTIVE PULMONARY DISEASE W (ACUTE) EXACERBATION SNOMED Code(s): 675174499 (3) Acute respiratory failure Current Visit: Yes Status: Acute Code(s): J96.00 - ACUTE RESPIRATORY IMAN LURE, UNSP W HYPOXIA OR HYPERCAPNIA SNOMED Code(s): 38119278 (4) COPD (chronic obstructive pulmonary disease) Current Visit: Yes Status: Acute Code(s): J44.9 - CHRONIC OBSTRUCTIVE PULMONARY DISEASE, UNSPECIFIED SNOMED Code(s): 96296311 (5) Congestive heart failure Current Visit: Yes Status: Acute Code(s): I50.9 - HEART FAILURE, UNSPECIFIED SNOMED Code(s): 01242737 (6) Hypoxia Current Visit: Yes Status: Acute Code(s): R09.02 - HYPOXEMIA SNOMED Code(s): 213250411 (7) Renal insufficiency syndrome Current Visit: Yes Status: Acute Code(s): N28.9 - DISORDER OF KIDNEY AND URETER, UNSPECIFIED SNOMED Code(s): 400192281 Plan: 1. Continue symptomatic and supportive care 2. Medical care per primary medical team and consulting teams 3. Patient without any signs or symptoms of GI bleed, no plans on endoscopic evaluation 4. Continue iron 5. May continue anticoagulation 6. Repeat CBC tomorrow, transfuse for hemoglobin less than 7 Thank you for this consultation, we will continue to follow. Dr. Galileo Bean I agree with the dictator's note, documented as a scribe by Katiuska Weiss.
[2023-07-12 16:50] LABS: Glucose,Whole Blood 293 mg/dL (70-110)
--- NOTE | 2023-07-12 19:20 | P.PN ---
Subjective 78-year-old patient with past medical history significant for congestive heart failure, chronic kidney disease, history of a defibrillation status post pacemaker in place, previous history of breast cancer status post lumpectomy and radiation, COPD on home oxygen, presented to the emergency department with complaints of progressive shortness of breath. At baseline patient weighs 3 L of oxygen, however patient has been having more exertional shortness of breath as well as chest pain. This was associated with nonproductive cough, patient denies associated fever, chills, nausea, vomiting with 6 contact. states her symptoms started 1 week ago around when she went up with the family. Patient states she had her Lasix during that time and started to feel short of breath since then. She has noticed increased swelling and lower extremity as well Workup initiated in ER included a chest x-ray which showed bilateral pleural effusions as well as cardiomegaly. Workup in ER included CBC which were WBC count of 6.5 hemoglobin 10.6 platelet 190, serum chemistry shows sodium 145 potassium 4.5 chloride 98 , serum bicarbonate 39 BU and 40 creatinine 1.77. Patient had elevated troponin which remained flat in ED, N-terminal proBNP was noted to be 19,700, EKG obtained in ER showed paced rhythm Patient to be admitted to medical floor with consultation from pulmonary medicine and cardiology 06/27/2023: Patient seen and evaluated bedside patient seen in ER room 1, waiting for bed, continue patient on diuresis the patient input from pulmonary medicine, blood work reviewed, serum chemistry reviewed creatinine 2.09. N- terminal proBNP [id number] 06/28/2023: Patient seen and evaluated bedside, patient in room 485, patient does complain of shortness of breath, follow-up chest x-ray obtained shows slight improvement in pulmonary vascular congestion was on 6 L of oxygen weaned down to 4 L. Appreciate input from cardiology, WBC within normal limits, serum chemistry and renal function reviewed, creatinine 2.2 N-terminal proBNP 92533. Pro-calcitonin was negative. Once kidney function improved patient will benefit from ELLEN 06/29/2023: Patient seen and evaluated bedside, patient does complain of shortness of breath however she states her breathing has improved, continue patient on Lasix, blood work reviewed, potassium 5.9, Patient patient to be given insulin, dextrose, calcium gluconate and sodium bicarbonate. Continue patient on Lasix, oral potassium supplementation discontinued 06/30/2023: Patient seen and evaluated bedside, patient does complain of shortness of breath, blood work reviewed, potassium 5.5, lokelma given, follow- up on potassium levels. Renal function creatinine 2.4, nephrology following. Continue patient on Lasix transitioned from IV to oral. IV Solu-Medrol weaned down to daily as well 07/01/2023 Patient is still complaining from shortness of breath She is requiring BiPAP at night Currently she is on 4 L oxygen, at home she is on 3 L/m She still have bilateral congestion in the right pleural effusion of the chest x-ray Continued on oral Lasix 40 mg twice daily and Zaroxolyn 1 dose was given today Also she is on IV Solu-Medrol 40 mg once daily with pulmonary team following him closely On liquids for her chronic A. fib 07/02/2023 patient is breathing is somewhat controlled with episodes of worsening requiring BiPAP, currently she is on 3 L which is a much her home dose She still slightly confused and drowsy related to her metabolic encephalopathy. She is also being treated with oral Lasix and once daily IV Solu-Medrol. Her bladder scan was 440, [place] fax added and we will check it again. Her creatinine is slightly worse 2.6, potassium 5 and she got 1 dose of glaucoma. 07/03/2023 Patient is more drowsy, breathing is somewhat labored, she was on a 3 L oxygen but also she is using BiPAP at night and more frequently She has worsening infiltrate on the chest x-ray with cardiomegaly on today imaging compared to yesterday, also her ABG showing evidence with CO2 retention and acute hypoxic hypercapnic respiratory failure therefore patient was transferred to telemetry floor for higher level of care She has evidence of urinary retention with bladder scan for 40 therefore Flomax was added. She remains on her home dose of Eliquis 5 mg, Solu-Medrol 40 mg. Also she is on oral Lasix 40 mg twice daily Case was discussed in details with nephrology team as well as with the staff 07/04/2023 Was using BiPAP machine but she was awake, patient clinically is improving as confirmed with the daughter at bedside. Creatinine is improving down to 1.9. Her chest x-ray shows showing evidence of fluid overload and cardiomegaly Therefore more diuretics were added and agree with IV Lasix 40 mg 1 also patient started on Diamox 07/05/2024 Patient is more comfortable this morning however she is still very lethargic requiring BiPAP with the setting of Currently on BiPAP 06/12 on 40% FiO2 Patient denies chest pain, she still short of breath no significant coughing. No change in urine or bowel habits. No fever. She has some mild leg edema as well. Her abdominal examination. Labs reviewed showing hemoglobin 10.5, creatinine remains same 1.9 went to 2.0. Chest x-ray showing cardiomegaly with bilateral infiltrate suspected fluid overload from CHF but improved compared to chest x-ray from yesterday. Patient Eliquis 5 Mg, Solu-Medrol 40 Mg Once Daily and Holding Her farNETpeas Social history Lasix daily, and dimox. Flomax is admitted for some urinary retention although does not require catheterization I had lengthy discussion with family and all questions answered Resume the care of the patient on 07/08/2023 She looks better today, she is more awake more relaxed however she still in [id number] respiratory distress she is easily get tachypneic once she's tried to talk. She was a BiPAP machine overnight and currently on her home dose of visits oxygen via nasal cannula Chest x-ray from yesterday showing bilateral infiltrates suspicious for CHF but it looks better than 3-4 days ago. Currently his insulin Medrol 4 mg once daily and Eliquis 5 mg. 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 by battery repairer 07/09/2023 Patient remains on BiPAP during the night and during the day she is carrying 3 L/m of oxygen, she is awake and alert and oriented, only mildly confused, easily inducible tachypnea. Vitals looks stable with a blood pressure 122/58 and heart rate 71. Creatinine at 1.5 and today she started on Lasix 20 mg daily Plan to hold Diamox and with a fall that 2 nephrology team Just continue on eliquis and Solu-Medrol 40 mg once daily Resume the care of the patient on the 07/12/2023 Patient looks more comfortable and she sitting up in her chair she denies chest pain. She is mildly tachypneic. She is able to answer questions and mentation is at baseline. She remains on her home dose of 3 L oxygen via nasal cannula. She has some dark stools secondary to iron pills, GI team were consulted, no evidence of GI bleed, hemoglobin stable and recommended to continue with same therapy. Her Vitas looks stable, creatinine 1.39, hemoglobin 9.7, WBC 10.4, platelet count 109. She had low glucose overnight down to 30, we switch her insulin Levemir at bedtime on to daily, and I talked to the bedside nurse to give her home dose of the sliding scale tonight if his needed. Continue with close return of her sugar. I talked to the patient today and she is agreeable [facility]. Objective - Vital Signs Vital signs: Vital Signs Temp 98.3 F 07/12/23 04:00 Pulse 78 07/12/23 08:36 Resp 16 07/12/23 08:36 BP 107/63 07/12/23 04:00 Pulse Ox 95 07/12/23 08:22 FiO2 40 07/12/23 08:22 Intake & Output 07/11/23 07/12/23 07/12/23 18:59 06:59 18:59 Intake Total 358 360 Output Total 741 600 Balance -383 -600 360 Weight 85.5 kg Intake: Oral 358 360 Output: Urine 740 600 Stool 1 Other: Voiding Method External Catheter External Catheter # Bowel Movements 1 - Exam -GENERAL: The patient is alert and oriented , mildly confused drowsy not in any acute distress. Well developed, well nourished. HEENT: Pupils are round and equally reacting to light. EOMI. No scleral icterus. No conjunctival pallor. Normocephalic, atraumatic. No pharyngeal erythema. No thyromegaly. CARDIOVASCULAR: S1 and S2 present. No murmurs, rubs, or gallops. -PULMONARY: Chest is clear to auscultation, no wheezing , bilateral basal crackles. tachypneic ABDOMEN: Soft, nontender, nondistended, normoactive bowel sounds. No palpable organomegaly. MUSCULOSKELETAL: No joint swelling or deformity. EXTREMITIES: No cyanosis, clubbing, or pedal edema. NEUROLOGICAL: Gross neurological examination did not reveal any focal deficits. SKIN: No rashes. no petechiae. - Labs CBC & Chem 7: 07/12/23 06:11 07/12/23 06:11 Labs: Abnormal Lab Results - Last 24 Hours (Table) 1207/11/23 07/11/23 Range/Units 12:00 16:15 19:55 WBC (3.8-10.6) k/uL RBC (3.80-5.40) m/uL Hgb (11.4-16.0) gm/dL Hct (34.0-46.0) % MCHC (31.0-37.0) g/dL RDW (11.5-15.5) % Plt Count (150-450) k/uL Neutrophils # (1.3-7.7) k/uL Lymphocytes # (1.0-4.8) k/uL POC Glucose (mg/dL) 224 H 269 H 406 H (70-110) mg/dL 07/12/23 07/12/23 07/12/23 Range/Units 00:45 06:01 06:02 WBC 11.3 H (3.8-10.6) k/uL RBC 3.28 L (3.80-5.40) m/uL Hgb 9.8 L (11.4-16.0) gm/dL Hct 31.8 L (34.0-46.0) % MCHC (31.0-37.0) g/dL RDW 17.4 H (11.5-15.5) % Plt Count 94 L (150-450) k/uL Neutrophils # 10.1 H (1.3-7.7) k/uL Lymphocytes # 0.4 L (1.0-4.8) k/uL POC Glucose (mg/dL) 37 L 44 L (70-110) mg/dL 07/12/23 07/12/23 07/12/23 Range/Units 06:11 06:24 06:46 WBC (3.8-10.6) k/uL RBC 3.32 L (3.80-5.40) m/uL Hgb 9.7 L (11.4-16.0) gm/dL Hct 32.5 L (34.0-46.0) % MCHC 29.8 L (31.0-37.0) g/dL RDW 17.3 H (11.5-15.5) % Plt Count 109 L (150-450) k/uL Neutrophils # 9.0 H (1.3-7.7) k/uL Lymphocytes # 0.5 L (1.0-4.8) k/uL POC Glucose (mg/dL) 55 L 122 H (70-110) mg/dL 07/12/23 Range/Units 11:26 WBC (3.8-10.6) k/uL RBC (3.80-5.40) m/uL Hgb (11.4-16.0) gm/dL Hct (34.0-46.0) % MCHC (31.0-37.0) g/dL RDW (11.5-15.5) % Plt Count (150-450) k/uL Neutrophils # (1.3-7.7) k/uL Lymphocytes # (1.0-4.8) k/uL POC Glucose (mg/dL) 154 H (70-110) mg/dL Assessment and Plan Assessment: Acute on chronic congestive heart failure diastolic dysfunction Acute on chronic hypoxic respiratory failure multifactorial COPD, CHF exacerbation Severe COPD with chronic hypoxia on 3 L of oxygen at baseline Acute urinary retention Elevated troponin secondary to type II PA hypoxia Transient hyperkalemia Acute kidney injury Chronic kidney disease stage IV Paroxysmal atrial fibrillation on anticoagulation 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 Plan: Continue with torsemide as per nephrology service Continue with IV Solu-Medrol Continue with oxygen therapy on BiPAP as needed Kidney with the Flomax GI team input is appreciated, no evidence of GI bleed Change insulin Levemir 10 units at bedtime into daily and) medical glucose Several consultants on the case for the cardiology signed off, pulmonary and nephrology Labs and medication were reviewed.. Continue same treatment. Continue with symptomatic treatment. Resume home medication. Monitor labs and vitals. DVT and GI prophylaxis. Further recommendations as per clinical course of the patient DVT prophylaxis: eliquis GI Prophylaxis: Ppi PT/OT:Acute rehab and I talked to the patient today and she is agreeable Prognosis is guarded
[2023-07-12 19:37] LABS: Glucose,Whole Blood 382 mg/dL (70-110)
[2023-07-12] MEDS: MONTELUKAST 10 MG TAB PO SCH (20:19)
[2023-07-12] MEDS: LORATADINE 10 MG TAB PO SCH (20:19)
[2023-07-12] MEDS: METOPROLOL SUCCINATE (ER) 25 MG TAB.ER.24H PO SCH (20:19)
[2023-07-12 23:24] LABS: Glucose,Whole Blood 248 mg/dL (70-110)
[2023-07-13 05:50] VITALS: TEMP 98.2
[2023-07-13 05:51] LABS: Glucose,Whole Blood 204 mg/dL (70-110)
[2023-07-13] MEDS: INSULIN ASPART (NovoLOG) 100 UNIT/ML VIAL SQ SCH ×4 (06:59→22:39)
[2023-07-13] MEDS: INSULIN DETEMIR (LEVEMIR) 100 UNIT/ML SYR SQ SCH (06:59)
[2023-07-13] MEDS: SYMBICORT 160-4.5 MCG INHALER INHALATION SCH ×2 (08:51→20:53)
[2023-07-13] MEDS: ALBUTEROL NEBULIZED 2.5 MG/3 ML INHALATION SCH ×4 (08:51→20:53)
[2023-07-13] MEDS: methylPREDNISolone SOD SUCCI 40 MG/ML 1 ML VIAL IV SCH (09:16)
[2023-07-13] MEDS: APIXABAN 5 MG TAB PO SCH ×2 (09:17→22:38)
[2023-07-13] MEDS: FERROUS SULFATE 325 MG TAB PO SCH (09:17)
[2023-07-13] MEDS: allopurinoL 300 MG TAB PO SCH (09:17)
[2023-07-13] MEDS: acetaZOLAMIDE 250 MG TAB PO SCH ×2 (09:17→22:38)
[2023-07-13] MEDS: TAMSULOSIN 0.4 MG CAP.ER.24H PO SCH (09:17)
[2023-07-13] MEDS: CHOLECALCIFEROL 25 MCG (1000 IU) TABLET PO SCH (09:17)
[2023-07-13] MEDS: FAMOTIDINE 20 MG TAB PO SCH (09:17)
[2023-07-13] MEDS: COLCHICINE 0.6 MG EACH PO SCH (09:18)
[2023-07-13] MEDS: TORSEMIDE 20 MG TAB PO SCH ×2 (09:18→15:32)
[2023-07-13 11:01] LABS: Anisocytosis Slight; HCT 33.5 % (34.0-46.0); Hypochromasia Marked; MCH 29.4 pg (25.0-35.0); MCHC 29.8 g/dL (31.0-37.0); MCV 98.7 fL (80.0-100.0); Macrocytosis Slight; Mean Platelet Volume 10.5; Platelet Count 105 k/uL (150-450); RBC 3.39 m/uL (3.80-5.40); RDW 17.5 % (11.5-15.5); WBC 9.5 k/uL (3.8-10.6)
--- NOTE | 2023-07-13 11:54 | P.DS ---
Providers Date of admission: 06/26/23 00:29 Attending physician: Guanako Lindsay Consults: 06/26/23 00:26 Consult Physician Routine Consulting Provider: Adriano Alonzo Consult Reason/Comments: copd Do you want consulting provider notified?: Yes 06/29/23 14:17 Consult Physician Routine Consulting Provider: Niya Valle Consult Reason/Comments: Acute renal failure on chronic kidney disease, hyperkalemia Do you want consulting provider notified?: Yes 07/12/23 02:49 Consult Physician Routine Consulting Provider: Erma Bean Consult Reason/Comments: GI Bleed Do you want consulting provider notified?: Yes Primary care physician: Ingrid Ocampo DO Hospital Course: Diagnoses: Acute on chronic congestive heart failure diastolic dysfunction with preserved ejection fraction Acute on chronic hypoxic respiratory failure multifactorial COPD, CHF exacerbation Severe COPD with chronic hypoxia on 3 L of oxygen at baseline Acute urinary retention, status post Flomax Elevated troponin secondary to type II FL hypoxia Transient hyperkalemia Acute kidney injury Chronic kidney disease stage IV Paroxysmal atrial fibrillation on anticoagulation 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 At baseline patient weighs 3 L of oxygen, however patient has been having more exertional shortness of breath as well as chest pain. Patient had prolonged course of the hospital more than 2 weeks, been evaluated and followed closely by several consultants mainly pulmonary service as well as customer assistance associate, GI service and cardiology service. Patient required BiPAP at night most of the time, and during the day she couldn't tolerate 3 L/m of oxygen via nasal cannula which is her home dose. Patient was also treated with IV Solu-Medrol, diuretics including Lasix, torsemide and Diamox Patient showed interval improvement and she is back to or close to her baseline No chest pain upon discharge, tachypnea is at baseline. No change in urine or bowel habits. No fever. No other new complaints. Patient able to go to rehab she feels she can go on discharge today. Patient was cleared for discharge by all consultants within pulmonary, nephrology mortar mixer operator was sent off the case and director of donor relations. Patient will be discharged on tapering steroids and diuretics. With recommendation for outpatient follow-up with pulmonary. As per pulmonary services patient will require noninvasiveness mechanical ventilation for her chronic hypercapnic and hypoxemic respiratory failure. Problems and management plan were discussed with the patient and he verbalized understanding and acceptance Patient was found stable and can be discharged to intermediate for rehab in guarded prognosis however he needs follow-up as an outpatient. Patient was instructed to follow up with PCP Dr. Ocampo within one week and patient agrees Patient was instructed to follow up with her die maker Dr. Alonzo in 2 weeks, customer assistance associate Dr. Valle in 1-2 weeks and mortar mixer operator Dr. Robledo in 2 weeks We recommend to check her CBC and basic metabolic panel and magnesium in 2-3 days after discharge Physical exam Gen: patient is a AAOx3, no distress CVS: S1-S2, RRR, no murmur -Lungs: B/L CTA, no wheezing. Mildly tachypneic at baseline at 3 L/m Abdomen: soft, no distention, no tenderness, positive bowel sounds Extremity: no leg edema or induration Time spent more than 35 minutes Patient Condition at Discharge: Serious Plan - Discharge Summary Discharge Rx Participant: Yes New Discharge Prescriptions: New Torsemide [Demadex] 20 mg PO BID@0900,1600 tab acetaZOLAMIDE [Diamox] 250 mg PO BID tab Tamsulosin [Flomax] 0.4 mg PO PC-BRKFST cap Famotidine [Pepcid] 20 mg PO DAILY tab predniSONE 10 mg PO DIRECTED #30 tab Budesonide-Formot 160-4.5 Mcg [Symbicort 160-4.5 Mcg Inhaler] 2 puff INHALATION RT-BID #1 each Continue allopurinoL [Zyloprim] 150 mg PO DAILY Apixaban [Eliquis] 5 mg PO BID Ferrous Sulfate [Iron (65 MG Elemental)] 325 mg PO DAILY Metoprolol Succinate [Metoprolol Succinate ER] 75 mg PO HS Power C Supplement 2 tab PO DAILY Cholecalciferol [Vitamin D3 (25 Mcg = 1000 Iu)] 75 mcg PO DAILY Colchicine 0.6 mg PO TUTH Fexofenadine HCl [Jamee Allergy] 180 mg PO HS Ipratropium/Albuter 20-100Mcg [Combivent Respimat 20-100Mcg Inhaler] 1 puff INHALATION RT-QID PRN PRN Reason: Shortness Of Breath Montelukast [Singulair] 10 mg PO HS Vitamin B Complex 1 cap PO DAILY Albuterol Inhaler [Ventolin Hfa Inhaler] 2 puff INHALATION RT-QID PRN #1 each PRN Reason: Shortness Of Breath Ipratropium-Albuterol Nebulize [Duoneb 0.5 mg-3 mg/3 ml Soln] 3 ml INHALATION RT-Q3H Changed Pantoprazole [Protonix] 40 mg PO DAILY #0 Discontinued Magnesium Oxide [Mag-Ox] 400 mg PO DAILY Potassium Chloride ER [K-Dur 20] 20 meq PO DAILY Furosemide [Lasix] 40 mg PO BID@0900,1600 #60 tab Discharge Medication List Apixaban [Eliquis] 5 mg PO BID 11/12/22 [History] Cholecalciferol [Vitamin D3 (25 Mcg = 1000 Iu)] 75 mcg PO DAILY 11/12/22 [History] Colchicine 0.6 mg PO TUTH 11/12/22 [History] Ferrous Sulfate [Iron (65 MG Elemental)] 325 mg PO DAILY 11/12/22 [History] Fexofenadine HCl [Jamee Allergy] 180 mg PO HS 11/12/22 [History] Ipratropium/Albuter 20-100Mcg [Combivent Respimat 20-100Mcg Inhaler] 1 puff INHALATION RT-QID PRN 11/12/22 [History] Metoprolol Succinate [Metoprolol Succinate ER] 75 mg PO HS 11/12/22 [History] Montelukast [Singulair] 10 mg PO HS 11/12/22 [History] Power C Supplement 2 tab PO DAILY 11/12/22 [History] Vitamin B Complex 1 cap PO DAILY 11/12/22 [History] allopurinoL [Zyloprim] 150 mg PO DAILY 11/12/22 [History] Albuterol Inhaler [Ventolin Hfa Inhaler] 2 puff INHALATION RT-QID PRN #1 each 11/19/22 [Rx] Ipratropium-Albuterol Nebulize [Duoneb 0.5 mg-3 mg/3 ml Soln] 3 ml INHALATION RT-Q3H 06/25/23 [History] Budesonide-Formot 160-4.5 Mcg [Symbicort 160-4.5 Mcg Inhaler] 2 puff INHALATION RT-BID #1 each 07/13/23 [Rx] Famotidine [Pepcid] 20 mg PO DAILY tab 07/13/23 [Rx] Pantoprazole [Protonix] 40 mg PO DAILY #0 07/13/23 [Rx] Tamsulosin [Flomax] 0.4 mg PO PC-BRKFST cap 07/13/23 [Rx] Torsemide [Demadex] 20 mg PO BID@0900,1600 tab 07/13/23 [Rx] acetaZOLAMIDE [Diamox] 250 mg PO BID tab 07/13/23 [Rx] predniSONE 10 mg PO DIRECTED #30 tab 07/13/23 [Rx] Follow up Appointment(s)/Referral(s): Ingrid Ocampo DO [Primary Care Provider] - 1-2 days [facility] [NON-STAFF] - Adriano Alonzo MD [STAFF PHYSICIAN] - 2 Weeks [facility], [NON-STAFF] - Activity/Diet/Wound Care/Special Instructions: Renal diet , Maintain salt and fluid restriction. Bipap 16/5 at hs while at rehab O2 3L/NC 24/7 You will need a sleep study to get qualified for bipap so you will need to follow up in the office. activity is as tolerated Discharge Disposition: TRANSFER TO SNF/ECF
[2023-07-13 12:00] LABS: Glucose,Whole Blood 152 mg/dL (70-110)
[2023-07-13] MEDS: IPRATROPIUM-ALBUTEROL 3 ML NEB INHALATION PRN (12:19)
--- NOTE | 2023-07-13 13:47 | P.PN ---
Subjective Patient is seen for follow-up for acute kidney injury on chronic kidney disease. Renal function has improved. Serum creatinine is down to 1.39 from 2.6 at peak. Baseline creatinine around 1.4-1.5 mg/dL. No significant complaints today. Maintained on torsemide 20 mg twice a day. 24 hour urine output documented at 1.3 L Objective - Vital Signs Vital signs: Vital Signs Temp 98.2 F 07/13/23 00:00 Pulse 80 07/13/23 12:30 Resp 16 07/13/23 12:00 BP 110/56 07/13/23 12:00 Pulse Ox 95 07/13/23 12:00 FiO2 40 07/13/23 05:19 Intake & Output 07/12/23 07/13/23 07/13/23 18:59 06:59 18:59 Intake Total 1320 Output Total 450 200 Balance 870 -200 Intake: Oral 1320 Output: Urine 450 200 Other: Voiding Method External Catheter External Catheter External Catheter - Exam Patient is awake, comfortable, no acute distress Examination of the heart S1 and S2 Examination the lungs decreased breath sounds at the bases Abdomen is soft nontender Examination of lower extremity shows 1+ edema [employer] exam grossly intact - Labs CBC & Chem 7: 07/13/23 09:55 07/12/23 06:11 Labs: Abnormal Lab Results - Last 24 Hours (Table) 07/12/23 07/12/23 07/12/23 Range/Units 16:48 19:36 23:22 RBC (3.80-5.40) m/uL Hgb (11.4-16.0) gm/dL Hct (34.0-46.0) % MCHC (31.0-37.0) g/dL RDW (11.5-15.5) % Plt Count (150-450) k/uL POC Glucose (mg/dL) 293 H 382 H 248 H (70-110) mg/dL 07/13/23 07/13/23 07/13/23 Range/Units 05:49 09:55 11:58 RBC 3.39 L (3.80-5.40) m/uL Hgb 10.0 L (11.4-16.0) gm/dL Hct 33.5 L (34.0-46.0) % MCHC 29.8 L (31.0-37.0) g/dL RDW 17.5 H (11.5-15.5) % Plt Count 105 L (150-450) k/uL POC Glucose (mg/dL) 204 H 152 H (70-110) mg/dL Assessment and Plan Assessment: 1. Acute kidney injury, cardiorenal, nonoliguric. Diuretics have been changed to oral. Blood pressure is not significantly low. No nephrotoxic agents noted. UA is benign and no evidence of obstruction on ultrasound. 2. Chronic kidney disease stage IV with baseline creatinine 1.5-1.7 mg/dL. Etiology is nephrosclerosis. 3. Acute hypoxic respiratory failure secondary to CHF exacerbation 4. Acute on chronic systolic CHF with ejection fraction 35-40% with severe left atrial allocation and severe right ventricular dilated dictation and severe pulmonary hypertension. 5. Chronic hypoxic respiratory failure maintained on home oxygen. Etiology is COPD and CHF 6. Paroxysmal atrial fibrillation maintained on eliquis. 7. Metabolic alkalosis associated with diuresis and chronic CO2 retention, maintained on Diamox Plan: Switched home Lasix to torsemide. Increase Diamox Maintain salt and fluid restriction. Check labs today and in a.m.
--- NOTE | 2023-07-13 15:03 | P.PN ---
Subjective Progress Note Date: 07/13/23 Principal diagnosis: CHF. The patient is seen today 07/05/2023 in follow-up on the regular medical floor. She is currently resting comfortably in bed. Currently on BiPAP 16/5 on 40% FiO2. Chest x-ray showing improvement of the congestive heart failure. Less pulmonary venous congestion. Sodium 143. Potassium 3.8. Bicarb 39. BUN 106. Creatinine 2.09. Glucose 177. She remains on DuoNeb inhalations, Symbicort, Solu-Medrol and Singulair. Anticoagulated with Eliquis. Continued on Lasix and Diamox. Making adequate urine. The patient is seen today 07/06/2023 in follow-up on the regular medical floor. She is currently resting in bed on 3 L nasal cannula. Off the BiPAP which she had been wearing 16/5 and 40% FiO2. Denies any worsening shortness of breath, cough or congestion. Sodium 143. Potassium 3.5. Bicarb 44. BUN 89. Creatinine 1.76. Glucose 184. She remains on Diamox and Lasix. Urine output 1600 ML's today thus far. Continued on DuoNeb inhalations, Symbicort, Solu- Medrol. Anticoagulated with Eliquis. Arterial blood gases obtained on 32% FiO2 revealed a P O2 of 64, pCO2 73 and a pH of 7.36. The patient is seen today 07/07/2023 in follow-up on the regular medical floor. She is awake and alert in no acute distress. Sitting up in bed. Currently on 3 L/m per nasal cannula. She states she did wear the BiPAP throughout the night 16/5 and 40% FiO2. Today's chest x-ray reveals overall stable exam with moderate cardiomegaly and small right greater than left pleural effusions with adjacent atelectasis. White count 10.1. Hemoccult 1110.7. Platelets 130. Sodium 140. Potassium 3.8. Bicarb 39. BUN 80. Creatinine 1.72. Glucose 107. She is continued on DuoNeb inhalations, Symbicort, Solu-Medrol. Anticoagulated with Eliquis. The patient is seen today 07/08/2023 in follow-up on the regular medical floor. She is currently sitting up in bed. Awake and alert. Family at the bedside. Denies any worsening shortness of breath, cough or congestion. Continue O2 saturations in the 90s on 3 L/m per nasal cannula. Afebrile. Hemodynamically stable. She is still utilizing the BiPAP at night 16/5 and 40% FiO2. Sodium 143. Potassium 3.9. Bicarb 36. BUN 74. Creatinine 1.53. Glucose 103. She is continued on DuoNeb inhalations, Symbicort, Solu-Medrol. Anticoagulated with Eliquis. The patient is seen today 07/09/2023 in follow-up on the regular medical floor. She is sitting up in bed. More awake and alert today. Denies any worsening shortness of breath, cough or congestion. She did utilize the BiPAP throughout the evening 16/5 and 40% FiO2. Most recent arterial blood gases revealed a PaO2 of 92, pCO2 54 and a pH of 7.47. Glucose 173. She remains on Symbicort, DuoNeb inhalations, Solu-Medrol and Singulair. Remains on diuretics. Anticoagulated with Eliquis. Progress note dated 07/10/2023. The patient is seen today in room 35. Currently, the patient's on 3 L of oxygen. She has BiPAP at the bedside, with settings of 16/5, and 40%. She's not receiving any IV fluids. The patient is not a very good historian, in no additional history can be obtained from her. She's not manifesting any signs or symptoms of respiratory difficulty or distress. Labs today include a sodium 142, potassium 4.3, chlorides 100, CO2 36, BUN 67, creatinine 1.4. Glucose 112. Calcium is 9. Chest x-ray shows findings consistent with a prior today's chest x-ray, from July 09. There is evidence of cardiomegaly, and some bilateral basilar infiltrates. Progress note dated 07/11/2023. 78-year-old female seen in room 385. The patient is currently on oxygen, at 3 L. She has a BiPAP at the bedside, with settings of 16/5, and 40%. Clinically, the patient is much more stable, and being evaluated for possible discharge. No additional history can be obtained from the patient, as she is a very poor historian. Currently labs include a white count 10.2, hemoglobin 10.2, hematocrit 35.2, and a platelet count of 112,000. Sodium 144, potassium 5.1, chlorides 98, CO2 35, BUN 66, and creatinine 1.47. Magnesium is 2.7. Glucose 224. No chest x-ray today. Progress note dated 07/12/2023. 78-year-old female seen in room 385. Currently, the patient's on 3 L of oxygen. She did use BiPAP last night, as she has, the last several nights. BiPAP settings of 16/5, and 40%. The patient is not receiving any IV fluids. Apparently, the patient has agreed to be discharged to rehabilitation. She is sitting in a chair next to her hospital bed. She is in no distress. White count 10.4, hemoglobin 9.7, hematocrit 32.5, and platelet count 109,000. Most recent blood glucose 154. Progress note dated 07/13/2023. 78-year-old female seen in room 385. Her daughter is in the room with her. The patient's currently on 3 views of oxygen. She didn't use BiPAP last night 16/5, and 40%. I spelled out various ways, to the daughter, how her mother might qualify for a noninvasive ventilator, such as CPAP/BiPAP, or, AVAPS. I also mention, that sometimes the insurance company just doesn't go along with the recommendation. Currently, the patient's doing rather well. She sitting up in a chair next to her hospital bed. Labs today include a white count 9.5, hemoglobin 10, hematocrit 33.5, and a platelet count of the 105,000. Glucose is 152. Objective - Vital Signs Vital signs: Vital Signs Temp 98.2 F 07/13/23 00:00 Pulse 80 07/13/23 12:30 Resp 16 07/13/23 12:00 BP 110/56 07/13/23 12:00 Pulse Ox 95 07/13/23 12:00 FiO2 40 07/13/23 05:19 Intake & Output 07/12/23 07/13/23 07/13/23 18:59 06:59 18:59 Intake Total 1320 118 Output Total 450 200 1 Balance 870 -200 117 Intake: Oral 1320 118 Output: Urine 450 200 Stool 1 Other: Voiding Method External Catheter External Catheter External Catheter - Exam No acute distress, oriented 3. Currently on 3 L. No respiratory difficulty. Saturations are 95 %. HEENT examination is grossly unremarkable. Neck supple. Full range of motion. No adenopathy thyromegaly or neck vein distention. Cardiovascular examination reveals regular rhythm rate. S1-S2 normal. No S3 or S4. No discernible murmur noted. Heart sounds are distant. Heart rate of 80 bpm. Lungs reveal minimal basilar crackles. No wheezes. No rhonchi. Saturations are 95% on 3 L. Abdomen soft bowel sounds are heard. No masses or tenderness. Extremities are intact. No cyanosis clubbing or edema. Skin is without rash or lesion. Neurologic examination is brief but nonfocal. - Labs CBC & Chem 7: 07/13/23 09:55 07/12/23 06:11 Labs: Abnormal Lab Results - Last 24 Hours (Table) 07/12/23 07/12/23 07/12/23 Range/Units 16:48 19:36 23:22 RBC (3.80-5.40) m/uL Hgb (11.4-16.0) gm/dL Hct (34.0-46.0) % MCHC (31.0-37.0) g/dL RDW (11.5-15.5) % Plt Count (150-450) k/uL POC Glucose (mg/dL) 293 H 382 H 248 H (70-110) mg/dL 07/13/23 07/13/23 07/13/23 Range/Units 05:49 09:55 11:58 RBC 3.39 L (3.80-5.40) m/uL Hgb 10.0 L (11.4-16.0) gm/dL Hct 33.5 L (34.0-46.0) % MCHC 29.8 L (31.0-37.0) g/dL RDW 17.5 H (11.5-15.5) % Plt Count 105 L (150-450) k/uL POC Glucose (mg/dL) 204 H 152 H (70-110) mg/dL Assessment and Plan Assessment: Acute on chronic hypoxemic respiratory failure, secondary to a combination of exacerbation of systolic congestive heart failure/biventricular heart failure as the patient has LV dysfunction with an ejection fraction of 35% addition to valvular insufficiency involving the mitral and aortic valve and severe tric uspid regurgitation with severe pulmonary hypertension. The RV is also severely dilated. Patient also has a component of acute COPD exacerbation. Alternating 3 L nasal cannula with BiPAP support 16/5 on 40% FiO2. Chest x-ray showing improved aeration and less pulmonary venous congestion. Her blood gases revealed a PaO2 of 92, pCO2 54, pH 7.47. Remains on Diamox and Demadex. Severe oxygen dependent COPD, and the patient has chronic hypoxic respiratory failure normally on 3 L. Chronic hypoxemic respiratory failure. Severe pulmonary hypertension. Acute on top of chronic kidney disease stage IV. Anemia of chronic disease. Paroxysmal atrial fibrillation. Chronically elevated troponins. History of permanent pacemaker implantation. Remote history of breast cancer, with previous lumpectomy and radiation. Nonocclusive coronary artery disease. Previous history of atrial fibrillation. Plan: Plan dated 07/10/2023. The patient appears to be doing reasonably well. Not a particularly good historian. Currently on 3 L. BiPAP is set up at the bedside, with settings of 16/5 and 40%. The patient is not receiving any IV fluids. Labs, x-rays, and medications are reviewed. The patient's overall prognosis remains guarded. We will continue to follow the patient, and make recommendations along the way. Plan dated 07/11/2023. The patient is seen today in room 385. She remains on 3 L of oxygen. She also has a BiPAP at the bedside, with settings of 16/5, and 40%. The patient is being evaluated for possible discharge in the near future. Labs, x-rays, and me dications are reviewed. The patient is a very poor historian. Despite that, she appears to be relatively stable. We will continue to follow the patient, and make recommendations along the way. The overall prognosis remains very guarded. Plan dated 07/12/2023. The patient is seen today in room 385. She sitting in a chair, next to her hospital bed. She is currently on oxygen, at 3 L. Saturations are between 95 and 96%. Labs, x-rays, and medications are reviewed. Apparently, the patient has decided to be discharged to a rehab facility. We will continue to follow the patient, and make recommendations along the way. The patient's overall prognosis remains very guarded. Plan dated 07/13/2023. The patient is seen today in room 385. She is on 3 L. At nighttime, she is using BiPAP. I explained to the patient, and the patient's daughter, how she might qualify for a noninvasive ventilator. This might include a room air blood gas, a pulmonary function test, a nocturnal oxygen study, sleep study, etc. Labs, x-rays, and medications are reviewed. Prognosis is guarded. The pulm onary standpoint, the patient is stable for discharge. For a while, the patient wasn't sure whether she would be discharged home or to rehab. She apparently has decided to go to rehab. Time with Patient: Less than 30
--- NOTE | 2023-07-13 16:07 | P.PN ---
Subjective Progress Note Date: 07/13/23 Principal diagnosis: Shortness of breath This is a pleasant 78-year-old female who came into the emergency department on 06/25/2023 and was admitted for shortness of breath and respiratory distress. She has a past medical history including atrial fibrillation on Eliquis, asthma, heart failure, COPD, GERD, history of breast cancer, coronary artery disease status post heart cath and pacemaker. Patient has been here for the last 16 days of pulmonology following. Gastroenterology was consulted for GI bleed because nursing reported that patient had a dark stool yesterday evening. Patient states that she is on iron and she always has dark stools. She has no history of peptic ulcer disease and reports no abdominal pain, rectal bleeding, nausea or vomiting. Hemoglobin on admission was 10.6 and has predominantly been running in the low 10s, with a hemoglobin yesterday of 9.8 and today 9.7. 07/13/2023 Patient seen and examined today as a follow-up. States she is not having any black stool or blood in her stool. No abdominal pain, nausea or vomiting. Hemoglobin stable at 10.0. Objective - Vital Signs Vital signs: Vital Signs Temp 98.2 F 07/13/23 00:00 Pulse 74 07/13/23 00:00 Resp 20 07/13/23 00:00 BP 102/60 07/13/23 04:00 Pulse Ox 98 07/13/23 00:00 FiO2 40 07/13/23 05:19 Intake & Output 07/12/23 07/13/23 07/13/23 18:59 06:59 18:59 Intake Total 1320 Output Total 450 200 Balance 870 -200 Intake: Oral 1320 Output: Urine 450 200 Other: Voiding Method External Catheter External Catheter - Exam General appearance: The patient is alert, oriented, appears in no acute distress. HET: Head is normocephalic and atraumatic. Conjunctiva pink. Sclera anicteric. Neck: Supple without lymphadenopathy. Abdomen: Soft, nontender, nondistended with bowel sounds. No guarding or rigidity. Extremities: Normal skin color and turgor. No pedal edema Skin: No rashes, no jaundice Neurological: No focal deficits. Alert and oriented. - Labs CBC & Chem 7: 07/13/23 09:55 07/12/23 06:11 Labs: Abnormal Lab Results - Last 24 Hours (Table) 07/12/23 07/12/23 07/12/23 Range/Units 06:11 11:26 16:48 Potassium 3.3 L (3.5-5.1) mmol/L Carbon Dioxide 40 H (22-30) mmol/L BUN 64 H (7-17) mg/dL Creatinine 1.39 H (0.52-1.04) mg/dL Glucose 30 L* (74-99) mg/dL POC Glucose (mg/dL) 154 H 293 H (70-110) mg/dL 07/12/23 07/12/23 07/13/23 Range/Units 19:36 23:22 05:49 Potassium (3.5-5.1) mmol/L Carbon Dioxide (22-30) mmol/L BUN (7-17) mg/dL Creatinine (0.52-1.04) mg/dL Glucose (74-99) mg/dL POC Glucose (mg/dL) 382 H 248 H 204 H (70-110) mg/dL Assessment and Plan (1) Anemia Narrative/Plan: 78-year-old female with multiple comorbidities who has been admitted for the last 16 days and came in with anemia and states has a history of chronic anemia on iron at home. Patient's labs are consistent with a normocytic normochromic anemia likely dealing with anemia of chronic disease. Patient had a reported dark stool per nursing yesterday evening and gastroenterology consulted however patient has no signs or symptoms of a GI bleed hemoglobin is stable and likely related to iron supplementation. There is no plans for endoscopic evaluation. Current Visit: Yes Status: Acute Code(s): D64.9 - ANEMIA, UNSPECIFIED SNOMED Code(s): 698241955 (2) Acute exacerbation of chronic obstructive pulmonary disease Current Visit: Yes Status: Acute Code(s): J44.1 - CHRONIC OBSTRUCTIVE PULMONARY DISEASE W (ACUTE) EXACERBATION SNOMED Code(s): 002629559 (3) Acute respiratory failure Current Visit: Yes Status: Acute Code(s): J96.00 - ACUTE RESPIRATORY FAILURE, UNSP W HYPOXIA OR HYPERCAPNIA SNOMED Code(s): 78315587 (4) COPD (chronic obstructive pulmonary disease) Current Visit: Yes Status: Acute Code(s): J44.9 - CHRONIC OBSTRUCTIVE PU LMONARY DISEASE, UNSPECIFIED SNOMED Code(s): 22922508 (5) Congestive heart failure Current Visit: Yes Status: Acute Code(s): I50.9 - HEART FAILURE, UNSPECIFIED SNOMED Code(s): 19240897 (6) Hypoxia Current Visit: Yes Status: Acute Code(s): R09.02 - HYPOXEMIA SNOMED Code(s): 077279911 (7) Renal insufficiency syndrome Current Visit: Yes Status: Acute Code(s): N28.9 - DISORDER OF KIDNEY AND URETER, UNSPECIFIED SNOMED Code(s): 633226028 Plan: 1. Continue symptomatic and supportive care 2. Medical care per primary medical team and consulting teams 3. Patient without any signs or symptoms of GI bleed, no plans on endoscopic evaluation 4. Continue iron 5. May continue anticoagulation Thank you for this consultation, we will sign off at this time. Dr. Galileo Bean I agree with the dictator's note, documented as a scribe by Katiuska Weiss.
[2023-07-13 16:27] LABS: Glucose,Whole Blood 281 mg/dL (70-110)
[2023-07-13 20:12] LABS: Glucose,Whole Blood 280 mg/dL (70-110)
[2023-07-13] MEDS: MONTELUKAST 10 MG TAB PO SCH (22:38)
[2023-07-13] MEDS: METOPROLOL SUCCINATE (ER) 25 MG TAB.ER.24H PO SCH (22:38)
[2023-07-13] MEDS: LORATADINE 10 MG TAB PO SCH (22:39)
[2023-07-14 06:08] LABS: Glucose,Whole Blood 96 mg/dL (70-110)
[2023-07-14] MEDS: INSULIN ASPART (NovoLOG) 100 UNIT/ML VIAL SQ SCH ×2 (06:21→12:30)
[2023-07-14] MEDS: INSULIN DETEMIR (LEVEMIR) 100 UNIT/ML SYR SQ SCH (06:37)
[2023-07-14] MEDS: FAMOTIDINE 20 MG TAB PO SCH (08:52)
[2023-07-14] MEDS: APIXABAN 5 MG TAB PO SCH (08:52)
[2023-07-14] MEDS: methylPREDNISolone SOD SUCCI 40 MG/ML 1 ML VIAL IV SCH (08:52)
[2023-07-14] MEDS: CHOLECALCIFEROL 25 MCG (1000 IU) TABLET PO SCH (08:52)
[2023-07-14] MEDS: allopurinoL 300 MG TAB PO SCH (08:52)
[2023-07-14] MEDS: TAMSULOSIN 0.4 MG CAP.ER.24H PO SCH (08:52)
[2023-07-14] MEDS: TORSEMIDE 20 MG TAB PO SCH (08:52)
[2023-07-14] MEDS: FERROUS SULFATE 325 MG TAB PO SCH (08:52)
[2023-07-14] MEDS: acetaZOLAMIDE 250 MG TAB PO SCH (08:55)
[2023-07-14] MEDS: SYMBICORT 160-4.5 MCG INHALER INHALATION SCH (09:01)
[2023-07-14] MEDS: ALBUTEROL NEBULIZED 2.5 MG/3 ML INHALATION SCH ×2 (09:01→12:11)
[2023-07-14 09:14] VITALS: BP 119/57; RESP 16
[2023-07-14 11:40] LABS: Glucose,Whole Blood 180 mg/dL (70-110)
--- NOTE | 2023-07-14 12:10 | P.DS ---
Providers Date of admission: 06/26/23 00:29 Attending physician: Guanako Lindsay Consults: 06/26/23 00:26 Consult Physician Routine Consulting Provider: Adriano Alonzo Consult Reason/Comments: copd Do you want consulting provider notified?: Yes 06/29/23 14:17 Consult Physician Routine Consulting Provider: Niya Valle Consult Reason/Comments: Acute renal failure on chronic kidney disease, hyperkalemia Do you want consulting provider notified?: Yes Primary care physician: Ingrid Ocampo DO Hospital Course: 78-year-old patient with past medical history significant for congestive heart failure, chronic kidney disease, history of a defibrillation status post pacemaker in place, previous history of breast cancer status post lumpectomy and radiation, COPD on home oxygen, presented to the emergency department with complaints of progressive shortness of breath. At baseline patient weighs 3 L of oxygen, however patient has been having more exertional shortness of breath as well as chest pain. Patient had prolonged course of the hospital more than 2 weeks, been evaluated and followed closely by several consultants mainly pulmonary service as well as outpatient admitting clerk, GI service and cardiology service. Patient required BiPAP at night most of the time, and during the day she couldn't tolerate 3 L/m of oxygen via nasal cannula which is her home dose. Patient was also treated with IV Solu-Medrol, diuretics including Lasix, torsemide and Diamox Patient showed interval improvement and she is back to or close to her baseline No chest pain upon discharge, tachypnea is at baseline. No change in urine or bowel habits. No fever. No other new complaints. Patient able to go to rehab she feels she can go on discharge today. Patient was cleared for discharge by all consultants within pulmonary, nephrology piggyback clerk was sent off the case and road freight firer. Patient will be discharged on tapering steroids and diuretics. With recommendation for outpatient follow-up with pulmonary. As per pulmonary services patient will require noninvasiveness mechanical ventilation for her chronic hypercapnic and hypoxemic respiratory failure. Problems and management plan were discussed with the patient and he verbalized understanding and acceptance Patient was found stable and can be discharged to [facility] for [facility]hab in guarded prognosis however he needs follow-up as an outpatient. Patient was instructed to follow up with PCP Dr. Ocampo within one week and patient agrees Patient was instructed to follow up with her environmental technician Dr. Alonzo in 2 weeks, outpatient admitting clerk Dr. Valle in 1-2 weeks and piggyback clerk Dr. Robledo in 2 weeks We recommend to check her CBC and basic metabolic panel and magnesium in 2-3 days after discharge Patient Condition at Discharge: Serious Plan - Discharge Summary Discharge Rx Participant: Yes New Discharge Prescriptions: New Torsemide [Demadex] 20 mg PO BID@0900,1600 tab acetaZOLAMIDE [Diamox] 250 mg PO BID tab Tamsulosin [Flomax] 0.4 mg PO PC-BRKFST cap Famotidine [Pepcid] 20 mg PO DAILY tab predniSONE 10 mg PO DIRECTED #30 tab Budesonide-Formot 160-4.5 Mcg [Symbicort 160-4.5 Mcg Inhaler] 2 puff INHALATION RT-BID #1 each Continue allopurinoL [Zyloprim] 150 mg PO DAILY Apixaban [Eliquis] 5 mg PO BID Ferrous Sulfate [Iron (65 MG Elemental)] 325 mg PO DAILY Metoprolol Succinate [Metoprolol Succinate ER] 75 mg PO HS Power C Supplement 2 tab PO DAILY Cholecalciferol [Vitamin D3 (25 Mcg = 1000 Iu)] 75 mcg PO DAILY Colchicine 0.6 mg PO TUTH Fexofenadine HCl [Jamee Allergy] 180 mg PO HS Ipratropium/Albuter 20-100Mcg [Combivent Respimat 20-100Mcg Inhaler] 1 puff INHALATION RT-QID PRN PRN Reason: Shortness Of Breath Montelukast [Singulair] 10 mg PO HS Vitamin B Complex 1 cap PO DAILY Albuterol Inhaler [Ventolin Hfa Inhaler] 2 puff INHALATION RT-QID PRN #1 each PRN Reason: Shortness Of Breath Ipratropium-Albuterol Nebulize [Duoneb 0.5 mg-3 mg/3 ml Soln] 3 ml INHALATION RT-Q3H Changed Pantoprazole [Protonix] 40 mg PO DAILY #0 Discontinued Magnesium Oxide [Mag-Ox] 400 mg PO DAILY Potassium Chloride ER [K-Dur 20] 20 meq PO DAILY Furosemide [Lasix] 40 mg PO BID@0900,1600 #60 tab Discharge Medication List Apixaban [Eliquis] 5 mg PO BID 11/12/22 [History] Cholecalciferol [Vitamin D3 (25 Mcg = 1000 Iu)] 75 mcg PO DAILY 11/12/22 [History] Colchicine 0.6 mg PO TUTH 11/12/22 [History] Ferrous Sulfate [Iron (65 MG Elemental)] 325 mg PO DAILY 11/12/22 [History] Fexofenadine HCl [Jamee Allergy] 180 mg PO HS 11/12/22 [History] Ipratropium/Albuter 20-100Mcg [Combivent Respimat 20-100Mcg Inhaler] 1 puff INHALATION RT-QID PRN 11/12/22 [History] Metoprolol Succinate [Metoprolol Succinate ER] 75 mg PO HS 11/12/22 [History] Montelukast [Singulair] 10 mg PO HS 11/12/22 [History] Power C Supplement 2 tab PO DAILY 11/12/22 [History] Vitamin B Complex 1 cap PO DAILY 11/12/22 [History] allopurinoL [Zyloprim] 150 mg PO DAILY 11/12/22 [History] Albuterol Inhaler [Ventolin Hfa Inhaler] 2 puff INHALATION RT-QID PRN #1 each 11/19/22 [Rx] Ipratropium-Albuterol Nebulize [Duoneb 0.5 mg-3 mg/3 ml Soln] 3 ml INHALATION RT-Q3H 06/25/23 [History] Budesonide-Formot 160-4.5 Mcg [Symbicort 160-4.5 Mcg Inhaler] 2 puff INHALATION RT-BID #1 each 07/13/23 [Rx] Famotidine [Pepcid] 20 mg PO DAILY tab 07/13/23 [Rx] Pantoprazole [Protonix] 40 mg PO DAILY #0 07/13/23 [Rx] Tamsulosin [Flomax] 0.4 mg PO PC-BRKFST cap 07/13/23 [Rx] Torsemide [Demadex] 20 mg PO BID@0900,1600 tab 07/13/23 [Rx] acetaZOLAMIDE [Diamox] 250 mg PO BID tab 07/13/23 [Rx] predniSONE 10 mg PO DIRECTED #30 tab 07/13/23 [Rx] Follow up Appointment(s)/Referral(s): Niya Valle MD [STAFF PHYSICIAN] - 2 Weeks German Corea MD [STAFF PHYSICIAN] - 2 Weeks Ingrid Ocampo DO [Primary Care Provider] - 1-2 days Erma Bean MD [STAFF PHYSICIAN] - 4 Weeks Anali Raymond [NON-STAFF] - Adriano Alonzo MD [STAFF PHYSICIAN] - 2 Weeks [facility], [NON-STAFF] - Activity/Diet/Wound Care/Special Instructions: Renal diet , Maintain salt and fluid restriction. Bipap 16/5 at hs O2 3L/NC 24/7 You will need a sleep study to get qualified for bipap so you will need to follow up in the office. activity is as tolerated Discharge Disposition: TRANSFER TO SNF/ECF
--- NOTE | 2023-07-14 12:18 | P.PN ---
Subjective Patient is seen for follow-up for acute kidney injury on chronic kidney disease. Renal function has improved. Serum creatinine is down to 1.39 from 2.6 at peak. Baseline creatinine around 1.4-1.5 mg/dL. No significant complaints today. Maintained on torsemide 20 mg twice a day. 24 hour urine output documented at 650 mL, not sure of this is accurate Objective - Vital Signs Vital signs: Vital Signs Temp 98.2 F 07/13/23 00:00 Pulse 70 07/14/23 12:12 Resp 16 07/14/23 08:00 BP 119/57 07/14/23 08:00 Pulse Ox 96 07/14/23 09:02 FiO2 32 07/14/23 03:56 Intake & Output 07/13/23 07/14/23 07/14/23 18:59 06:59 18:59 Intake Total 118 110 Output Total 1 500 1 Balance 117 -500 109 Intake: Oral 118 110 Output: Urine 500 Stool 1 1 Other: Voiding Method External Catheter External Catheter External Catheter # Voids 5 # Bowel Movements 1 - Exam Patient is sleeping but arousable comfortable, no acute distress Examination of the heart S1 and S2 Examination the lungs decreased breath sounds at the bases Abdomen is soft nontender Examination of lower extremity shows 1+ edema AS400 DEVELOPER exam grossly intact - Labs CBC & Chem 7: 07/13/23 09:55 07/12/23 06:11 Labs: Abnormal Lab Results - Last 24 Hours (Table) 07/13/23 07/13/23 07/14/23 Range/Units 16:25 20:10 11:30 POC Glucose (mg/dL) 281 H 280 H 180 H (70-110) mg/dL Assessment and Plan Assessment: 1. Acute kidney injury, cardiorenal, nonoliguric. Diuretics have been changed to oral. Blood pressure is not significantly low. No nephrotoxic agents noted. UA is benign and no evidence of obstruction on ultrasound. 2. Chronic kidney disease stage IV with baseline creatinine 1.5-1.7 mg/dL. Etiology is nephrosclerosis. 3. Acute hypoxic respiratory failure secondary to CHF exacerbation 4. Acute on chronic systolic CHF with ejection fraction 35-40% with severe left atrial allocation and severe right ventricular dilated dictation and severe pulmonary hypertension. 5. Chronic hypoxic respiratory failure maintained on home oxygen. Etiology is COPD and CHF 6. Paroxysmal atrial fibrillation maintained on eliquis. 7. Metabolic alkalosis associated with diuresis and chronic CO2 retention, maintained on Diamox Plan: Switched home Lasix to torsemide. Maintain salt and fluid restriction. Check labs today and in a.m.
[2023-07-14 12:37] VITALS: PULSE 78
--- NOTE | 2023-07-15 07:59 | PN ---
PROGRESS NOTE DATE OF SERVICE: 07/14/2023 PULMONARY/CRITICAL CARE PROGRESS NOTE: SUBJECTIVE: This is a 78-year-old female who is seen today in room 385. She continues on oxygen at 3 L. She does use BiPAP at nighttime, with settings of 16/5 and 40%. The patient had an uneventful night. The patient may or may not be a candidate for a noninvasive ventilator such as CPAP/BiPAP, or even a Trilogy device or AVAPS machine. That will be determined when she is discharged. The patient apparently has not been discharged to rehab facility. Initially, she wanted to go home. PHYSICAL EXAMINATION: VITAL SIGNS: Current vital signs include a temperature which is 97.6, heart rate which is 78, respiratory rate 16, blood pressure which is 128/79, and 3 L saturation which is 96%. She appears in no acute distress. She is sitting in a chair next to the bed. HEENT: Grossly unremarkable. NECK: Supple. Full range of motion. No adenopathy. Neck veins are flat. CARDIOVASCULAR: Reveals regular rhythm rate. Heart sounds are distant. LUNGS: Reveal mostly clear breath sounds. Minimal scattered rhonchi. No wheezes or crackles. ABDOMEN: Soft, bowel sounds are heard. EXTREMITIES: Intact. No edema. No cyanosis or clubbing. SKIN: Without rash. NEUROLOGIC: Nonfocal. LABORATORY DATA: Today only include a glucose of 96. No chest x-ray today. ASSESSMENT: 1. Acute on chronic hypoxemic respiratory failure secondary to a combination of exacerbation of systolic CHF/biventricular heart failure with LV dysfunction and ejection fraction of 35%, as well as valvular heart disease in the form of mitral and aortic valve, and severe tricuspid regurgitation. 2. Severe pulmonary hypertension. 3. Severe oxygen-dependent COPD. 4. Chronic hypoxemic respiratory failure. 5. Severe pulmonary hypertension. 6. Acute on chronic kidney disease, stage IV. 7. Anemia of chronic disease. 8. Paroxysmal atrial fibrillation. 9. Chronically elevated troponins. 10.History of permanent pacemaker implantation. 11.Remote history of breast cancer. 12.Nonocclusive coronary disease. 13.Previous history of atrial fibrillation. PLAN: The patient will be discharged hopefully today, either to home or group home. As of now, the patient may be going to a group home. She will be discharged on 3 L. She can use a BiPAP at the group home with the current settings. No additional recommendations are made. Labs x-rays and medications are reviewed. Prognosis is guarded. MMODL / IJN: [id number] /
== END 2023-07-14 14:05 | DRG 280 ==
LOC: EC 21:43 → 1SOBS 06-26 00:29 → 3SCARD 06-26 08:00 → 4SSUR 06-27 17:56 → 3SCARD 07-03 19:24
PROVIDERS: ADMIT Hospitalist; ATTEND Hospitalist
PROC: 5A09557 Assistance with Respiratory Ventilation, Greater than 96 Consecutive Hours, Continuous Positive Airway Pressure (ICD-10-PCS; principal; 2023-06-30)
DX: I13.0 Hypertensive heart and chronic kidney disease with heart failure and stage 1 through stage 4 chronic kidney disease, or unspecified chronic kidney disease (principal); I21.A1 Myocardial infarction type 2; G93.41 Metabolic encephalopathy; I50.23 Acute on chronic systolic (congestive) heart failure; J96.21 Acute and chronic respiratory failure with hypoxia; J96.22 Acute and chronic respiratory failure with hypercapnia; N17.0 Acute kidney failure with tubular necrosis; E87.0 Hyperosmolality and hypernatremia; E87.4 Mixed disorder of acid-base balance; I48.19 Other persistent atrial fibrillation; J44.1 Chronic obstructive pulmonary disease with (acute) exacerbation; N18.4 Chronic kidney disease, stage 4 (severe); I08.3 Combined rheumatic disorders of mitral, aortic and tricuspid valves; E87.5 Hyperkalemia; E87.6 Hypokalemia; X58.XXXA Exposure to other specified factors, initial encounter; Z20.822 Contact with and (suspected) exposure to COVID-19; D63.8 Anemia in other chronic diseases classified elsewhere; I48.0 Paroxysmal atrial fibrillation; Z95.0 Presence of cardiac pacemaker; Z79.01 Long term (current) use of anticoagulants; Z85.3 Personal history of malignant neoplasm of breast; E09.9 Drug or chemical induced diabetes mellitus without complications; I27.20 Pulmonary hypertension, unspecified; Z99.81 Dependence on supplemental oxygen; I12.9 Hypertensive chronic kidney disease with stage 1 through stage 4 chronic kidney disease, or unspecified chronic kidney disease; N18.32 Chronic kidney disease, stage 3b; F32.A Depression, unspecified; F41.9 Anxiety disorder, unspecified; I25.10 Atherosclerotic heart disease of native coronary artery without angina pectoris; I27.29 Other secondary pulmonary hypertension; I27.81 Cor pulmonale (chronic); I42.8 Other cardiomyopathies; I50.82 Biventricular heart failure; M41.9 Scoliosis, unspecified; T38.0X5A Adverse effect of glucocorticoids and synthetic analogues, initial encounter; I49.5 Sick sinus syndrome; T50.1X6A Underdosing of loop [high-ceiling] diuretics, initial encounter; T45.4X5A Adverse effect of iron and its compounds, initial encounter; R19.5 Other fecal abnormalities; M10.9 Gout, unspecified; Z79.899 Other long term (current) drug therapy; Z91.148 Patient's other noncompliance with medication regimen for other reason; Z87.891 Personal history of nicotine dependence; Z92.3 Personal history of irradiation
CPT/HCPCS: 36415; 36600; 71045; 76770; 80048; 80053; 80076; 81001; 81003; 82805; 83605; 83735; 83880; 84100; 84132; 84145; 84484; 85025; 85027; 85610; 85730; 86140; 87636; 93005; 93306; 94640; 94660; 94760; 94762; 96374; 96375; 96376; 99291

== ENCOUNTER 2023-08-25 16:41 | Inpatient (IN) | payer MEDICARE ==
--- NOTE | 2023-08-25 17:05 | ED ---
SOB HPI - General Chief Complaint: Shortness of Breath Stated Complaint: THANG Time Seen by Provider: 08/25/23 16:52 Source: patient, RN notes reviewed, old records reviewed Mode of arrival: EMS Limitations: no limitations - History of Present Illness Initial Comments: This is a 78-year-old female to the ER for evaluation today. Patient notes today for evaluation regards to severe shortness of breath cough congestion, patient has persistent cough here in the ER. No travel history no sick contacts. Patient has recent inpatient hospitalization and has been exposed to all viruses RSV influenza and coronavirus. MD Complaint: shortness of breath, cough, chest pain, anxiety -: days(s) Severity: mild Severity scale (1-10): 2 Quality: aching Consistency: constant Improves With: nothing Worsens With: nothing Known History Of: COPD, congestive heart failure Context: recent URI, recent illness Associated Symptoms: chest pain, cough, sputum production Treatments Prior to Arrival: none - Related Data Home Medications Medication Instructions Recorded Confirmed Apixaban [Eliquis] 5 mg PO BID 11/12/22 08/25/23 Cholecalciferol [Vitamin D3 (25 75 mcg PO DAILY 11/12/22 08/25/23 Mcg = 1000 Iu)] Ipratropium/Albuter 20-100Mcg 1 puff INHALATION RT-QID PRN 11/12/22 08/25/23 [Combivent Respimat 20-100Mcg Inhaler] Metoprolol Succinate [Metoprolol 75 mg PO HS 11/12/22 08/25/23 Succinate ER] Montelukast [Singulair] 10 mg PO HS 11/12/22 08/25/23 Power C Supplement 2 tab PO DAILY 11/12/22 08/25/23 Vitamin B Complex 1 cap PO DAILY 11/12/22 08/25/23 Ipratropium-Albuterol Nebulize 3 ml INHALATION RT-TID 06/25/23 08/25/23 [Duoneb 0.5 mg-3 mg/3 ml Soln] Fluticasone/Umeclidin/Vilanter 1 puff INHALATION RT-DAILY 08/25/23 08/25/23 [Trelegy Ellipta 100-62.5-25] Magnesium Oxide [Mag-Ox] 400 mg PO DAILY 08/25/23 08/25/23 Omeprazole 20 mg PO BID 08/25/23 08/25/23 Potassium Chloride ER [K-Dur 20] 20 meq PO DAILY 08/25/23 08/25/23 Tamsulosin [Flomax] 0.4 mg PO DAILY 08/25/23 08/25/23 Previous Rx's Medication Instructions Recorded Albuterol Inhaler [Ventolin Hfa 2 puff INHALATION RT-QID PRN #1 11/19/22 Inhaler] each Torsemide [Demadex] 20 mg PO BID@0900,1600 tab 07/13/23 acetaZOLAMIDE [Diamox] 250 mg PO BID tab 07/13/23 Allergies Allergy/AdvReac Type Severity Reaction Status Date / Time aspirin Allergy Anaphylaxis Verified 08/25/23 20:24 ibuprofen Allergy Anaphylaxis Verified 08/25/23 20:24 Review of Systems ROS Statement: Those systems with pertinent positive or pertinent negative responses have been documented in the HPI. ROS Other: All systems not noted in ROS Statement are negative. Past Medical History Past Medical History: Atrial Fibrillation, Asthma, Cancer, Heart Failure, COPD, GERD/Reflux, Skin Disorder Additional Past Medical History / Comment(s): COPD, asthma, breast cancer-right lumpectomy and radiation therapy 25 years ago, wears 3L NC at home, chronic atrial fibrillation, CHF (systolic ). Arthritis, dry patch on right leg, gout History of Any Multi-Drug Resistant Organisms: None Reported Past Surgical History: Section, Heart Catheterization, Hernia Repair, Pacemaker Additional Past Surgical History / Comment(s): left hand surgery for broken i ndex and middle finger Past Anesthesia/Blood Transfusion Reactions: No Reported Reaction Type of Cardiac Device: Permanent Pacemaker Device Placement Date:: 07/2021 Past Psychological History: Depression Smoking Status: Former smoker Past Alcohol Use History: None Reported Past Drug Use History: None Reported - Past Family History Mother Family Medical History: Diabetes Mellitus General Exam Limitations: no limitations General appearance: alert, anxious, in distress Head exam: Present: atraumatic, normocephalic, normal inspection Eye exam: Present: normal appearance, PERRL, EOMI. Absent: scleral icterus, conjunctival injection, periorbital swelling ENT exam: Present: normal exam, mucous membranes moist Neck exam: Present: normal inspection. Absent: tenderness, meningismus, lymphadenopathy Respiratory exam: Present: normal lung sounds bilaterally. Absent: respiratory distress, wheezes, rales, rhonchi, stridor Cardiovascular Exam: Present: regular rate, normal rhythm, normal heart sounds. Absent: systolic murmur, diastolic murmur, rubs, gallop, clicks GI/Abdominal exam: Present: soft, normal bowel sounds. Absent: distended, tenderness, guarding, rebound, rigid Extremities exam: Present: normal inspection, full ROM, normal capillary refill. Absent: tenderness, pedal edema, joint swelling, calf tenderness Back exam: Present: normal inspection Neurological exam: Present: alert, oriented X3, CN II-XII intact Psychiatric exam: Present: normal affect, normal mood Skin exam: Present: warm, dry, intact, normal color. Absent: rash Course Vital Signs 08/25/23 08/25/23 08/25/23 16:42 16:48 17:40 Temperature 96.9 F L Pulse Rate 91 90 Respiratory 26 H 26 H 20 Rate Blood Pressure 141/109 121/67 O2 Sat by Pulse 92 L 93 L Oximetry Fraction of Inspired Oxygen (FIO2) 08/25/23 08/25/23 08/25/23 18:00 18:10 20:40 Temperature Pulse Rate 90 90 75 Respiratory 18 20 18 Rate Blood Pressure 104/80 O2 Sat by Pulse 90 L Oximetry Fraction of Inspired Oxygen (FIO2) 08/25/23 08/25/23 08/25/23 21:10 21:16 21:25 Temperature Pulse Rate 82 75 Respiratory Rate Blood Pressure O2 Sat by Pulse 92 L Oximetry Fraction of Inspired Oxygen (FIO2) 08/25/23 08/25/23 08/26/23 21:27 22:32 00:51 Temperature Pulse Rate 72 Respiratory 20 Rate Blood Pressure 100/79 O2 Sat by Pulse 95 Oximetry Fraction of 40 40 Inspired Oxygen (FIO2) 08/26/23 08/26/23 08/26/23 02:00 03:04 05:49 Temperature Pulse Rate 71 80 Respiratory 16 Rate Blood Pressure 107/71 O2 Sat by Pulse 95 Oximetry Fraction of 40 Inspired Oxygen (FIO2) 08/26/23 08/26/23 08/26/23 05:55 06:00 07:21 Temperature Pulse Rate 86 89 Respiratory 16 Rate Blood Pressure 116/64 O2 Sat by Pulse 90 L 88 L Oximetry Fraction of Inspired Oxygen (FIO2) 08/26/23 08/26/23 08/26/23 07:23 08:18 08:32 Temperature 97.8 F Pulse Rate 70 70 76 Respiratory 22 Rate Blood Pressure 103/76 O2 Sat by Pulse 95 6 L Oximetry Fraction of Inspired Oxygen (FIO2) 08/26/23 08/26/23 08/26/23 08:54 09:20 10:10 Temperature Pulse Rate 77 78 77 Respiratory 20 22 20 Rate Blood Pressure 113/75 113/78 118/59 O2 Sat by Pulse 90 L 90 L 90 L Oximetry Fraction of Inspired Oxygen (FIO2) 08/26/23 08/26/23 08/26/23 10:20 11:03 12:12 Temperature Pulse Rate 80 70 70 Respiratory 19 19 Rate Blood Pressure 120/68 119/58 O2 Sat by Pulse 90 L 89 L Oximetry Fraction of Inspired Oxygen (FIO2) 08/26/23 08/26/23 08/26/23 12:28 13:22 14:02 Temperature 98.0 F Pulse Rate 79 88 81 Respiratory 19 17 Rate Blood Pressure 120/67 125/76 O2 Sat by Pulse 90 L 93 L Oximetry Fraction of Inspired Oxygen (FIO2) 08/26/23 08/26/23 08/26/23 15:24 16:10 17:12 Temperature Pulse Rate 86 73 89 Respiratory 20 19 17 Rate Blood Pressure 129/75 121/64 124/88 O2 Sat by Pulse 90 L 94 L 90 L Oximetry Fraction of Inspired Oxygen (FIO2) 08/26/23 18:10 Temperature 98.3 F Pulse Rate 77 Respiratory 19 Rate Blood Pressure 117/90 O2 Sat by Pulse 93 L Oximetry Fraction of Inspired Oxygen (FIO2) - Reevaluation(s) Reevaluation #1: 08/25/23 17:39 Medical records reviewed Reevaluation #2: 08/25/23 17:39 Patient symptoms unchanged Reevaluation #3: 08/25/23 21:10 Patient has no real improvement in symptoms here in the ER Reevaluation #4: 08/25/23 17:39 Was pt. sent in by a medical professional or institution (, PA, MANUFACTURING LEAD, urgent care, hospital, or skilled nursing...) When possible be specific @ -no Did you speak to anyone other than the patient for history (EMS, parent, family, police, friend...)? What history was obtained from this source @ -no Did you review nursing and triage notes (agree or disagree)? Why? @ -agree Are old charts reviewed (outside hosp., previous admission, EMS record, old EKG, old radiological studies, urgent care reports/EKG's, skilled nursing records)? Report findings @ -yes Differential Diagnosis (chest pain, altered mental status, abdominal pain women, abdominal pain men, vaginal bleeding, weakness, fever, dyspnea, syncope, headache, dizziness, GI bleed, back pain, seizure, CVA, palpatations, mental health, musculoskeletal)? @ -prior EKG interpreted by me (3pts min.). @ -yes X-rays interpreted by me (1pt min.). @ -yes negative for acute disease CT interpreted by me (1pt min.). @ -no U/S interpreted by me (1pt. min.). @ -no What testing was considered but not performed or refused? (CT, X-rays, U/S, labs)? Why? @ -none What meds were considered but not given or refused? Why? @ -none Did you discuss the management of the patient with other professionals (pr ofessionals i.e. , PA, MANUFACTURING LEAD, lab, RT, psych nurse, social services manager, materials manager, teacher, credit compliance officer, family service caseworker)? Give summary @ -no Was smoking cessation discussed for >3mins.? @ -no Was critical care preformed (if so, how long)? @ -[id number] Were there social determinants of health that impacted care today? How? (Homelessness, low income, unemployed, alcoholism, drug addiction, transportation, low edu. Level, literacy, decrease access to med. care, prison, rehab)? @ -none Was there de-escalation of care discussed even if they declined (Discuss DNR or withdrawal of care, Hospice)? DNR status @ -no What co-morbidities impacted this encounter? (DM, HTN, Smoking, COPD, CAD, Cancer, CVA, ARF, Chemo, Hep., AIDS, mental health diagnosis, sleep apnea, morbid obesity)? @ -none Was patient admitted / discharged? Hospital course, mention meds given and route, prescriptions, significant lab abnormalities, going to OR and other pertinent info. @ - 78 female to the ER for evaluation of severe dyspnea. Patient will be placed on BiPAP as it does help with her work of breathing significant short of breath and patient will be admitted for further evaluation of bronchospasm Admitted Undiagnosed new problem with uncertain prognosis? @ -no Drug Therapy requiring intensive monitoring for toxicity (Heparin, Nitro, Insulin, Cardizem)? @ -no Were any procedures done? @ -no Diagnosis/symptom? @ -Respiratory failure, COPD Acute, or Chronic, or Acute on Chronic? @ -Acute Uncomplicated (without systemic symptoms) or Complicated (systemic symptoms)? @ -Complicated Side effects of treatment? @ -no Exacerbation, Progression, or Severe Exacerbation? @ -exacerbation Poses a threat to life or bodily function? How? (Chest pain, USA, VT, pneumonia, PE, COPD, DKA, ARF, appy, cholecystitis, CVA, Diverticulitis, Homicidal, Suicidal, threat to staff... and all critical care pts) @ -yes extremes of age Reevaluation #5: 08/25/23 17:39 Differential Dyspnea: Coronary syndrome, arrhythmia, tamponade, asthma, COPD, pulmonary embolism, pneumonia, pneumothorax, pulmonary effusion, anaphylaxis, diabetic ketoacidosis, flailed chest, pulmonary contusion, diaphragmatic rupture, anemia, neuromuscular, this is not meant to be an all-inclusive list. - Consultations Consultation #1: Spoke with [facility] who agrees to admit the patient Medical Decision Making - Medical Decision Making 78 female to the ER for evaluation of severe dyspnea. Patient will be placed on BiPAP as it does help with her work of breathing significant short of breath and patient will be admitted for further evaluation of bronchospasm - Lab Data Result diagrams: 09/06/23 07:29 09/06/23 07:29 Lab Results 08/25/23 08/25/23 08/25/23 Range/Units 17:31 17:31 17:31 WBC 8.7 (3.8-10.6) k/uL RBC 3.85 (3.80-5.40) m/uL Hgb 11.0 L (11.4-16.0) gm/dL Hct 37.3 (34.0-46.0) % MCV 97.1 (80.0-100.0) fL MCH 28.7 (25.0-35.0) pg MCHC 29.5 L (31.0-37.0) g/dL RDW 16.8 H (11.5-15.5) % Plt Count 197 D (150-450) k/uL MPV 9.4 Neutrophils % 71 % Lymphocytes % 16 % Monocytes % 9 % Eosinophils % 1 % Basophils % 1 % Neutrophils # 6.1 (1.3-7.7) k/uL Lymphocytes # 1.4 (1.0-4.8) k/uL Monocytes # 0.8 (0-1.0) k/uL Eosinophils # 0.1 (0-0.7) k/uL Basophils # 0.0 (0-0.2) k/uL Hypochromasia Marked Anisocytosis Slight Macrocytosis Slight PT 12.6 H (10.0-12.5) sec INR 1.2 H (<1.2) APTT 31.0 H (22.0-30.0) sec Sodium 143 (137-145) mmol/L Potassium 4.4 (3.5-5.1) mmol/L Chloride 106 (98-107) mmol/L Carbon Dioxide 31 H (22-30) mmol/L Anion Gap 6 mmol/L BUN 39 H (7-17) mg/dL Creatinine 1.66 H (0.52-1.04) mg/dL Est GFR (CKD-EPI)AfAm 34 (>60 ml/min/1.73 sqM) Est GFR (CKD-EPI)NonAf 29 (>60 ml/min/1.73 sqM) Glucose 108 H (74-99) mg/dL Plasma Lactic Acid Cliff (0.7-2.0) mmol/L Calcium 8.8 (8.4-10.2) mg/dL Magnesium 2.8 H (1.6-2.3) mg/dL Total Bilirubin 1.1 (0.2-1.3) mg/dL AST 24 (14-36) U/L ALT 16 (4-34) U/L Alkaline Phosphatase 100 (38-126) U/L Troponin I (0.000-0.034) ng/mL NT-Pro-B Natriuret Pep 31584 pg/mL Total Protein 5.9 L (6.3-8.2) g/dL Albumin 3.5 (3.5-5.0) g/dL Influenza Type A (PCR) (Not Detectd) Influenza Type B (PCR) (Not Detectd) RSV (PCR) (Not Detectd) SARS-CoV-2 (PCR) (Not Detectd) 08/25/23 08/25/23 08/25/23 Range/Units 17:31 17:31 18:30 WBC (3.8-10.6) k/uL RBC (3.80-5.40) m/uL Hgb (11.4-16.0) gm/dL Hct (34.0-46.0) % MCV (80.0-100.0) fL MCH (25.0-35.0) pg MCHC (31.0-37.0) g/dL RDW (11.5-15.5) % Plt Count (150-450) k/uL MPV Neutrophils % % Lymphocytes % % Monocytes % % Eosinophils % % Basophils % % Neutrophils # (1.3-7.7) k/uL Lymphocytes # (1.0-4.8) k/uL Monocytes # (0-1.0) k/uL Eosinophils # (0-0.7) k/uL Basophils # (0-0.2) k/uL Hypochromasia Anisocytosis Macrocytosis PT (10.0-12.5) sec INR (<1.2) APTT (22.0-30.0) sec Sodium (137-145) mmol/L Potassium (3.5-5.1) mmol/L Chloride (98-107) mmol/L Carbon Dioxide (22-30) mmol/L Anion Gap mmol/L BUN (7-17) mg/dL Creatinine (0.52-1.04) mg/dL Est GFR (CKD-EPI)AfAm (>60 ml/min/1.73 sqM) Est GFR (CKD-EPI)NonAf (>60 ml/min/1.73 sqM) Glucose (74-99) mg/dL Plasma Lactic Acid Cliff 1.6 (0.7-2.0) mmol/L Calcium (8.4-10.2) mg/dL Magnesium (1.6-2.3) mg/dL Total Bilirubin (0.2-1.3) mg/dL AST (14-36) U/L ALT (4-34) U/L Alkaline Phosphatase (38-126) U/L Troponin I 0.053 H* (0.000-0.034) ng/mL NT-Pro-B Natriuret Pep pg/mL Total Protein (6.3-8.2) g/dL Albumin (3.5-5.0) g/dL Influenza Type A (PCR) Not Detected (Not Detectd) Influenza Type B (PCR) Not Detected (Not Detectd) RSV (PCR) Not Detected (Not Detectd) SARS-CoV-2 (PCR) Not Detected (Not Detectd) - EKG Data -: EKG Interpreted by Me (EKG appears paced 87 QRS 131 QTc 435) - Radiology Data Radiology results: report reviewed (X-rays negative for acute disease), image reviewed Critical Care Time Critical Care Time: Yes Total Critical Care Time: 31 Disposition Clinical Impression: COPD (chronic obstructive pulmonary disease), Acute exacerbation of chronic obstructive pulmonary disease, Acute respiratory failure Disposition: ADMITTED IP TO THIS HOSP Condition: Fair Is patient prescribed a controlled substance at d/c from ED?: No Time of Disposition: 20:20
[2023-08-25] MEDS: SODIUM CHLORIDE 0.9% 1,000 ML IV STA (17:44)
[2023-08-25] MEDS: SODIUM CHLORIDE 0.9% 500 ML 500 ML IV STA (17:44)
[2023-08-25 17:53] LABS: ALT 16 U/L (4-34); AST 24 U/L (14-36); African American GFR (CKD) 34 (>60 ml/min/1.73 sqM); Albumin 3.5 g/dL (3.5-5.0); Alkaline Phosphatase 100 U/L (38-126); Anion Gap 6 mmol/L; Blood Urea Nitrogen 39 mg/dL (7-17); Calcium 8.8 mg/dL (8.4-10.2); Carbon Dioxide 31 mmol/L (22-30); Chloride 106 mmol/L (98-107); Glucose 108 mg/dL (74-99); Magnesium 2.8 mg/dL (1.6-2.3); Non-African American GFR(CKD) 29 (>60 ml/min/1.73 sqM); Potassium 4.4 mmol/L (3.5-5.1); Sodium 143 mmol/L (137-145); Total Bilirubin 1.1 mg/dL (0.2-1.3); Total Protein 5.9 g/dL (6.3-8.2)
[2023-08-25 17:56] LABS: Anisocytosis Slight; Basophils % (A) 1 %; Eosinophils # (A) 0.1 k/uL (0-0.7); Eosinophils % (A) 1 %; HCT 37.3 % (34.0-46.0); Hypochromasia Marked; INR 1.2 (<1.2); Lymphocytes # (A) 1.4 k/uL (1.0-4.8); Lymphocytes % (A) 16 %; MCH 28.7 pg (25.0-35.0); MCHC 29.5 g/dL (31.0-37.0); MCV 97.1 fL (80.0-100.0); Macrocytosis Slight; Mean Platelet Volume 9.4; Monocytes # (A) 0.8 k/uL (0-1.0); Monocytes % (A) 9 %; Neutrophils # (A) 6.1 k/uL (1.3-7.7); Neutrophils % (A) 71 %; Prothrombin Time 12.6 sec (10.0-12.5); RBC 3.85 m/uL (3.80-5.40); RDW 16.8 % (11.5-15.5); WBC 8.7 k/uL (3.8-10.6)
[2023-08-25 17:57] LABS: Platelet Count 197 k/uL (150-450)
[2023-08-25] MEDS: IPRATROPIUM-ALBUTEROL 3 ML NEB INHALATION STA ×2 (18:00→21:09)
[2023-08-25 18:01] LABS: NT-Pro-B-Type Natriuretic Pept 16700 pg/mL
--- NOTE | 2023-08-25 18:58 | XR ---
EXAM: XR chest 1V portable CLINICAL INDICATION:Female, 78 years old with history of sob; [facility] COMPARISON: 07/10/2023 TECHNIQUE: Chest single view. FINDINGS: Patient is rotated right, a limitation. Lines/tubes/devices: Stable left chest multilead pacemaker with leads over the RA, RV, coronary sinus . EKG leads, jewelry, tubing over the chest. Cardiomediastinum: Cardiac silhouette appears stable, moderately enlarged. Stable mediastinal silhouette allowing for technique. Vasculature: No increased pulmonary vasculature. Lungs/pleura: Improved aeration of bibasilar opacities and decreased blunting of the left costophrenic angle. There are probably trace residual pleural effusions. No pneumothorax evident. Bones/soft tissues: Bony thorax appears grossly unchanged as seen. Regional soft tissues appear unremarkable. IMPRESSION: 1. Stable cardiomegaly and multilead pacemaker. 2. Improved aeration of bibasilar pleural/parenchymal opacities with probable trace residual effusio ns.
[2023-08-25] MEDS ORDERED: NALOXONE 0.4 MG/ML 1 ML VIAL IVP PRN (20:21)
[2023-08-25] MEDS ORDERED: MORPHINE SULFATE 4 MG/ML SYRINGE IV PRN (20:22)
[2023-08-25] MEDS: methylPREDNISolone SOD SUCCI 125 MG/2 ML VIAL IV STA (20:34)
[2023-08-26] MEDS: methylPREDNISolone SOD SUCCI 125 MG/2 ML VIAL IV SCH ×2 (00:55→20:50)
[2023-08-26] MEDS: ALBUTEROL NEBULIZED 2.5 MG/3 ML INHALATION SCH (05:47)
--- NOTE | 2023-08-26 06:28 | P.CNPUL ---
History of Present Illness Consult date: 08/26/23 Requesting physician: Guanako Lindsay Reason for consult: dyspnea, hypoxemia, pleural effusion, abnormal CXR/CT Chief complaint: Shortness of breath. History of present illness: Pulmonary consult dated August 26, 2023. 78-year-old female seen in the emergency department, on August 26. She prese nted to the ER, on August 25, complaining of shortness of breath. The patient had been having shortness of breath for couple days prior to admission. In addition, he had a persistent cough, and lower extremity edema. The patient was evaluated, and was found to have CHF. The patient was initially placed on BiPAP, with settings of 16/5 and 40%. When I saw her in the emergency department, she was in room #5, and was on 4 L by nasal cannula. The patient was not getting any IV fluids. She is feeling a bit better. Her past medical history is positive for atrial fibrillation, asthma, breast cancer, heart failure, COPD, GERD, arthritis, and gout. The patient has had a pacemaker implanted as well. She was a former smoker in the past. White count 8.7, hemoglobin 11, hematocrit 37.3, and platelet count was 197,000. PT 12.6, INR 1.2, PTT is 31. Sodium 143, potassium 4.4, chlorides 106, CO2 31, BUN 39, creatinine 1.66. Her troponins were 0.053, 0.042, and 0.041. Her N-terminal proBNP was 16,700. She tested negative for influenza, RSV, and coronavirus. Chest x-ray showed the pacemaker, cardiomegaly, cephalization, bilateral pleural effusions. Review of Systems REVIEW OF SYSTEMS: CONSTITUTIONAL: [Negative.] NEUROLOGIC: [ Negative.] HEENT: [ Negative.] CARDIAC: Lower extremity edema. PULMONARY: Shortness of breath. GI: [Negative.] : [Negative.] RHEUMATOLOGIC: [ Negative.] IMMUNOLOGIC: [ Negative.] ENDOCRINE: [Negative. ] DERMATOLOGIC: [Negative.] Past Medical History Past Medical History: Atrial Fibrillation, Asthma, Cancer, Heart Failure, COPD, GERD/Reflux, Skin Disorder Additional Past Medical History / Comment(s): COPD, asthma, breast cancer-right lumpectomy and radiation therapy 25 years ago, wears 3L NC at home, chronic atrial fibrillation, CHF (systolic ). Arthritis, dry patch on right leg, gout History of Any Multi-Drug Resistant Organisms: None Reported Past Surgical History: Section, Heart Catheterization, Hernia Repair, Pacemaker Additional Past Surgical History / Comment(s): left hand surgery for broken index and middle finger Past Anesthesia/Blood Transfusion Reactions: No Reported Reaction Type of Cardiac Device: Permanent Pacemaker Device Placement Date:: 07/2021 Past Psychological History: Depression Smoking Status: Former smoker Past Alcohol Use History: None Reported Past Drug Use History: None Reported - Past Family History Mother Family Medical History: Diabetes Mellitus Medications and Allergies Home Medications Medication Instructions Recorded Confirmed Type Apixaban [Eliquis] 5 mg PO BID 11/12/22 08/25/23 History Cholecalciferol [Vitamin D3 (25 75 mcg PO DAILY 11/12/22 08/25/23 History Mcg = 1000 Iu)] Ipratropium/Albuter 20-100Mcg 1 puff INHALATION RT-QID PRN 11/12/22 08/25/23 History [Combivent Respimat 20-100Mcg Inhaler] Metoprolol Succinate [Metoprolol 75 mg PO HS 11/12/22 08/25/23 History Succinate ER] Montelukast [Singulair] 10 mg PO HS 11/12/22 08/25/23 History Power C Supplement 2 tab PO DAILY 11/12/22 08/25/23 History Vitamin B Complex 1 cap PO DAILY 11/12/22 08/25/23 History Albuterol Inhaler [Ventolin Hfa 2 puff INHALATION RT-QID PRN #1 11/19/22 08/25/23 Rx Inhaler] each Ipratropium-Albuterol Nebulize 3 ml INHALATION RT-TID 06/25/23 08/25/23 History [Duoneb 0.5 mg-3 mg/3 ml Soln] Torsemide [Demadex] 20 mg PO BID@0900,1600 tab 07/13/23 08/25/23 Rx acetaZOLAMIDE [Diamox] 250 mg PO BID tab 07/13/23 08/25/23 Rx Fluticasone/Umeclidin/Vilanter 1 puff INHALATION RT-DAILY 08/25/23 08/25/23 History [Trelegy Ellipta 100-62.5-25] Magnesium Oxide [Mag-Ox] 400 mg PO DAILY 08/25/23 08/25/23 History Omeprazole 20 mg PO BID 08/25/23 08/25/23 History Potassium Chloride ER [K-Dur 20] 20 meq PO DAILY 08/25/23 08/25/23 History Tamsulosin [Flomax] 0.4 mg PO DAILY 08/25/23 08/25/23 History Allergies Allergy/AdvReac Type Severity Reaction Status Date / Time aspirin Allergy Anaphylaxis Verified 08/25/23 20:24 ibuprofen Allergy Anaphylaxis Verified 08/25/23 20:24 Physical Exam Osteopathic Statement: *. No significant issues noted on an osteopathic structural exam other than those noted in the History and Physical/Consult. Vitals: Vital Signs Temp Pulse Resp BP Pulse Ox FiO2 08/26/23 06:00 89 16 116/64 90 L 08/26/23 05:55 86 08/26/23 05:49 80 08/26/23 03:04 40 08/26/23 02:00 71 16 107/71 95 08/26/23 00:51 40 08/25/23 22:32 72 20 100/79 95 08/25/23 21:27 40 08/25/23 21:25 75 08/25/23 21:16 92 L 08/25/23 21:10 82 08/25/23 20:40 75 18 104/80 90 L 08/25/23 18:10 90 20 08/25/23 18:00 90 18 08/25/23 17:40 90 20 121/67 93 L 08/25/23 16:48 26 H 08/25/23 16:42 96.9 F L 91 26 H 141/109 92 L Intake and Output 08/25/23 08/25/23 08/26/23 14:59 22:59 06:59 Other: Weight 81.647 kg Mild dyspnea, oriented 3. Currently on 4 L by nasal cannula. HEENT examination is grossly unremarkable. Neck supple. Full range of motion. No adenopathy thyromegaly or neck vein distention. Cardiovascular examination reveals regular rhythm rate. S1-S2 normal. No S3 or S4. A soft systolic murmur is noted. Heart sounds are distant. Heart rate 89 bpm. Lungs reveal basilar crackles. No wheezes or rhonchi. Breath sounds are equal bilaterally. 4 L saturation is between 90 to 95%. Abdomen soft with bowel sounds. No masses or tenderness. Extremities are intact. No cyanosis or clubbing. 1+ pitting edema. Skin is without rash or lesion. Neurologic examination is brief but nonfocal. Results - Laboratory Findings CBC and BMP: 08/25/23 17:31 08/25/23 17:31 PT/INR, D-dimer PT 12.6 sec (10.0-12.5) H 08/25/23 17:31 INR 1.2 (<1.2) H 08/25/23 17:31 Abnormal lab findings: Abnormal Labs 08/25/23 08/25/23 08/25/23 17:31 17:31 17:31 Hgb 11.0 L MCHC 29.5 L RDW 16.8 H PT 12.6 H INR 1.2 H APTT 31.0 H Carbon Dioxide 31 H BUN 39 H Creatinine 1.66 H Glucose 108 H Magnesium 2.8 H Troponin I Total Protein 5.9 L 08/25/23 08/25/23 08/26/23 17:31 20:39 00:03 Hgb MCHC RDW PT INR APTT Carbon Dioxide BUN Creatinine Glucose Magnesium Troponin I 0.053 H* 0.042 H* 0.041 H* Total Protein - Diagnostic Findings Chest x-ray: image reviewed Assessment and Plan Assessment: Acute hypoxemic respiratory failure secondary to systolic CHF. History of atrial fibrillation, status post pacemaker implantation. History of severe pulmonary hypertension. History of valvular heart disease. History of COPD/asthma. History of breast cancer, with previous lumpectomy on the right. Chronic hypoxemic respiratory failure, on home O2. Gastroesophageal reflux disease. History of gout. Prior history of tobacco use. History of depression. Plan: Plan dated August 26, 2023. The patient is seen in the emergency department. Labs, x-rays, and medications are reviewed. The patient is admitted primarily for CHF. She apparently has a history of systolic CHF. She also has a history of chronic atrial fibrillation, status post pacemaker insertion. She was a former smoker and has either COPD or asthma, or both. We saw the patient last in June 2023, as well as in October 2022. I saw the patient last in June 2023. At that time, she was admitted with a diagnosis of acute on chronic hypoxemic respiratory failure secondary to systolic CHF, with an ejection fraction of 35%, as well as a history of valvular heart disease. The patient also has a history of severe pulmonary hypertension. Additional recommendations and suggestions are forthcoming. Prognosis is guarded. Cardiology has been consulted. Time with Patient: Greater than 30
[2023-08-26] MEDS: IPRATROPIUM-ALBUTEROL 3 ML NEB INHALATION SCH (08:17)
[2023-08-26] MEDS: SYMBICORT 80-4.5 MCG INHALER INHALATION SCH (08:18)
[2023-08-26] MEDS: APIXABAN 5 MG TAB PO SCH (08:53)
[2023-08-26] MEDS: CHOLECALCIFEROL 25 MCG (1000 IU) TABLET PO SCH (08:53)
[2023-08-26] MEDS: PANTOPRAZOLE 40 MG TABLET PO SCH (08:53)
[2023-08-26] MEDS: TAMSULOSIN 0.4 MG CAP.ER.24H PO SCH (08:53)
[2023-08-26] MEDS: acetaZOLAMIDE 250 MG TAB PO SCH (08:53)
[2023-08-26] MEDS ORDERED: IPRATROPIUM-ALBUTEROL 3 ML NEB INHALATION PRN (09:32)
[2023-08-26] MEDS: TORSEMIDE 20 MG TAB PO SCH (09:32)
[2023-08-26] MEDS ORDERED: ALBUTEROL NEBULIZED 2.5 MG/3 ML INHALATION PRN (09:32)
[2023-08-26 09:37] LABS: Anisocytosis Slight; Basophils % (A) 1 %; Eosinophils % (A) 0 %; HCT 32.9 % (34.0-46.0); HGB 9.6 gm/dL (11.4-16.0); Hypochromasia Marked; Lymphocytes # (A) 0.2 k/uL (1.0-4.8); Lymphocytes % (A) 3 %; MCH 28.3 pg (25.0-35.0); MCHC 29.3 g/dL (31.0-37.0); MCV 96.8 fL (80.0-100.0); Mean Platelet Volume 9.1; Monocytes # (A) 0.1 k/uL (0-1.0); Monocytes % (A) 2 %; Neutrophils # (A) 6.2 k/uL (1.3-7.7); Neutrophils % (A) 94 %; Platelet Count 169 k/uL (150-450); RDW 16.8 % (11.5-15.5); WBC 6.6 k/uL (3.8-10.6)
[2023-08-26 09:53] LABS: ALT 14 U/L (4-34); AST 21 U/L (14-36); African American GFR (CKD) 36 (>60 ml/min/1.73 sqM); Albumin 3.1 g/dL (3.5-5.0); Alkaline Phosphatase 91 U/L (38-126); Anion Gap 7 mmol/L; Blood Urea Nitrogen 45 mg/dL (7-17); Calcium 8.7 mg/dL (8.4-10.2); Carbon Dioxide 27 mmol/L (22-30); Chloride 109 mmol/L (98-107); Glucose 162 mg/dL (74-99); Magnesium 2.8 mg/dL (1.6-2.3); Non-African American GFR(CKD) 31 (>60 ml/min/1.73 sqM); Phosphorus 4.6 mg/dL (2.5-4.5); Potassium 4.1 mmol/L (3.5-5.1); Sodium 143 mmol/L (137-145); Total Bilirubin 0.9 mg/dL (0.2-1.3); Total Protein 5.5 g/dL (6.3-8.2)
[2023-08-26] MEDS: POTASSIUM CHLORIDE ER 20 MEQ TAB.ER PO SCH (10:14)
[2023-08-26] MEDS: MAGNESIUM OXIDE 400 MG TAB PO SCH (10:14)
[2023-08-26] MEDS: FUROSEMIDE 10 MG/ML 4 ML VIAL IV SCH (10:16)
--- NOTE | 2023-08-26 13:12 | P.CRDCN ---
History of Present Illness Consult date: 08/26/23 Consult reason: congestive heart failure, shortness of breath History of present illness: History of present illness: Patient is a pleasant 78-year-old female with significant past medical history of atrial fibrillation, asthma, breast cancer, heart failure, COPD, GERD, arthritis, pacemaker, former smoker who presents for worsening shortness of breath and cough. She does follow with Dr. Benitez in the office. She states over the past 3 to 4 days she has had worsening of her shortness of breath and cough. Denies any fevers, reports chills. She denies any chest pain but does feel chest tightness with coughing. Denies any dizziness or syncope. She was taking her medications as prescribed at home. She was recently admitted in June 2023 with CHF exacerbation. Echo was done at that time 06/26/2023 with a EF 35-40%, elevated RVSP 51, moderate mitral regurgitation, severe tricuspid regurgitation, mildmoderate aortic regurgitation. Labs reviewed today: Hemoglobin 9.6, potassium 4.1, creatinine 1.57, troponin 0.053, 0.042, 0.041, proBNP 16,700. Of note her troponins appear to be chronically elevated. Pulmonology has been consulted. She is currently on IV diuretics. REVIEW OF SYSTEMS: No fever. Reports chills. No diaphoresis. Patient denies headache, dizziness, blurred vision, double vision. Patient denies any stomach discomfort. No nausea, vomiting. No hematochezia. No hematemesis. Denies any black stools or blood in his stools. Denies dysuria or hematuria. No muscle weakness or numbness. No chest pain or pressure. She reports shortness of breath and cough. PHYSICAL EXAMINATION: This is a 78-year-old female in no apparent distress at the time of my examination. HEENT: Head is atraumatic, normocephalic. Pupils are equal, round. Sclerae anicteric. Conjunctivae are clear. Mucous membranes of the mouth are moist. Neck is supple. There is no jugular venous distention. No carotid bruit is heard. CHEST EXAMINATION: Lungs with basilar crackles. Mildly dyspnic on exam. No chest wall tenderness is noted on palpation or with deep breathing. On NC 4L O2. HEART EXAMINATION: Heart regular rate and rhythm. S1, S2 heard. No murmurs, gallops or rub. ABDOMEN: Soft, nontender. Bowel sounds are heard. EXTREMITIES: 2+ peripheral pulses with +1 peripheral edema and no calf tenderness noted. NEUROLOGIC EXAMINATION: Patient is awake, alert and oriented x3. IMPRESSION AND PLAN: Atrial fibrillation, paroxysmal Acute on chronic systolic heart failure exacerbation Pulmonary Hypertension COPD Dyspnea History of pacemaker Elevated troponin, chronic PLAN: We will continue with IV diuresis. Monitor I&O and renal function. Consider outpatient ischemic work up for decrease in EF. Concern for possilbe RV cardiomyopathy, may consider upgrade to Bi-V pacemaker. We will follow. I am dictating on behalf of Dr. William Castro's history/physical and assessment/plan. Past Medical History Past Medical History: Atrial Fibrillation, Asthma, Cancer, Heart Failure, COPD, GERD/Reflux, Skin Disorder Additional Past Medical History / Comment(s): COPD, asthma, breast cancer-right lumpectomy and radiation therapy 25 years ago, wears 3L NC at home, chronic atrial fibrillation, CHF (systolic ). Arthritis, dry patch on right leg, gout History of Any Multi-Drug Resistant Organisms: None Reported Past Surgical History: Section, Heart Catheterization, Hernia Repair, Pacemaker Additional Past Surgical History / Comment(s): left hand surgery for broken index and middle finger Past Anesthesia/Blood Transfusion Reactions: No Reported Reaction Type of Cardiac Device: Permanent Pacemaker Device Placement Date:: 07/2021 Past Psychological History: Depression Smoking Status: Former smoker Past Alcohol Use History: None Reported Past Drug Use History: None Reported - Past Family History Mother Family Medical History: Diabetes Mellitus Medications and Allergies Home Medications Medication Instructions Recorded Confirmed Type Apixaban [Eliquis] 5 mg PO BID 11/12/22 08/25/23 History Cholecalciferol [Vitamin D3 (25 75 mcg PO DAILY 11/12/22 08/25/23 History Mcg = 1000 Iu)] Ipratropium/Albuter 20-100Mcg 1 puff INHALATION RT-QID PRN 11/12/22 08/25/23 History [Combivent Respimat 20-100Mcg Inhaler] Metoprolol Succinate [Metoprolol 75 mg PO HS 11/12/22 08/25/23 History Succinate ER] Montelukast [Singulair] 10 mg PO HS 11/12/22 08/25/23 History Power C Supplement 2 tab PO DAILY 11/12/22 08/25/23 History Vitamin B Complex 1 cap PO DAILY 11/12/22 08/25/23 History Albuterol Inhaler [Ventolin Hfa 2 puff INHALATION RT-QID PRN #1 11/19/22 08/25/23 Rx Inhaler] each Ipratropium-Albuterol Nebulize 3 ml INHALATION RT-TID 06/25/23 08/25/23 History [Duoneb 0.5 mg-3 mg/3 ml Soln] Torsemide [Demadex] 20 mg PO BID@0900,1600 tab 07/13/23 08/25/23 Rx acetaZOLAMIDE [Diamox] 250 mg PO BID tab 07/13/23 08/25/23 Rx Fluticasone/Umeclidin/Vilanter 1 puff INHALATION RT-DAILY 08/25/23 08/25/23 History [Trelegy Ellipta 100-62.5-25] Magnesium Oxide [Mag-Ox] 400 mg PO DAILY 08/25/23 08/25/23 History Omeprazole 20 mg PO BID 08/25/23 08/25/23 History Potassium Chloride ER [K-Dur 20] 20 meq PO DAILY 08/25/23 08/25/23 History Tamsulosin [Flomax] 0.4 mg PO DAILY 08/25/23 08/25/23 History Allergies Allergy/AdvReac Type Severity Reaction Status Date / Time aspirin Allergy Anaphylaxis Verified 08/25/23 20:24 ibuprofen Allergy Anaphylaxis Verified 08/25/23 20:24 Physical Exam Vitals: Vital Signs Temp Pulse Resp BP Pulse Ox FiO2 08/26/23 11:03 70 19 119/58 89 L 08/26/23 10:20 80 19 120/68 90 L 08/26/23 10:10 77 20 118/59 90 L 08/26/23 09:20 78 22 113/78 90 L 08/26/23 08:54 77 20 113/75 90 L 08/26/23 08:32 76 08/26/23 08:18 70 6 L 08/26/23 07:23 97.8 F 70 22 103/76 95 08/26/23 07:21 88 L 08/26/23 06:00 89 16 116/64 90 L 08/26/23 05:55 86 08/26/23 05:49 80 08/26/23 03:04 40 08/26/23 02:00 71 16 107/71 95 08/26/23 00:51 40 08/25/23 22:32 72 20 100/79 95 08/25/23 21:27 40 08/25/23 21:25 75 08/25/23 21:16 92 L 08/25/23 21:10 82 08/25/23 20:40 75 18 104/80 90 L 08/25/23 18:10 90 20 08/25/23 18:00 90 18 08/25/23 17:40 90 20 121/67 93 L 08/25/23 16:48 26 H 08/25/23 16:42 96.9 F L 91 26 H 141/109 92 L Intake and Output 08/25/23 08/26/23 08/26/23 22:59 06:59 14:59 Other: Weight 81.647 kg Results 08/26/23 08:21 08/26/23 08:21 Cardiac Enzymes 08/25/23 08/25/23 08/25/23 Range/Units 17:31 17:31 20:39 AST 24 (14-36) U/L Troponin I 0.053 H* 0.042 H* (0.000-0.034) ng/mL 08/26/23 08/26/23 Range/Units 00:03 08:21 AST 21 (14-36) U/L Troponin I 0.041 H* (0.000-0.034) ng/mL Coagulation 08/25/23 Range/Units 17:31 PT 12.6 H (10.0-12.5) sec APTT 31.0 H (22.0-30.0) sec CBC 08/25/23 08/26/23 Range/Units 17:31 08:21 WBC 8.7 6.6 (3.8-10.6) k/uL RBC 3.85 3.40 L (3.80-5.40) m/uL Hgb 11.0 L 9.6 L (11.4-16.0) gm/dL Hct 37.3 32.9 L (34.0-46.0) % Plt Count 197 D 169 (150-450) k/uL Comprehensive Metabolic Panel 08/25/23 08/26/23 Range/Units 17:31 08:21 Sodium 143 143 (137-145) mmol/L Potassium 4.4 4.1 (3.5-5.1) mmol/L Chloride 106 109 H (98-107) mmol/L Carbon Dioxide 31 H 27 (22-30) mmol/L BUN 39 H 45 H (7-17) mg/dL Creatinine 1.66 H 1.57 H (0.52-1.04) mg/dL Glucose 108 H 162 H (74-99) mg/dL Calcium 8.8 8.7 (8.4-10.2) mg/dL AST 24 21 (14-36) U/L ALT 16 14 (4-34) U/L Alkaline Phosphatase 100 91 (38-126) U/L Total Protein 5.9 L 5.5 L (6.3-8.2) g/dL Albumin 3.5 3.1 L (3.5-5.0) g/dL Current Medications Generic Name Dose Route Start Last Admin Trade Name Freq PRN Reason Stop Dose Admin Acetaminophen 650 mg 08/26/23 09:27 Acetaminophen Tab 325 Mg Tab PO Q6HR PRN Mild Pain or Fever > 100.5 Acetazolamide 250 mg 08/26/23 09:00 08/26/23 08:53 Acetazolamide 250 Mg Tab PO 250 mg BID OANH Administration Albuterol/Ipratropium 3 ml 08/26/23 08:00 08/26/23 08:17 Ipratropium-Albuterol 3 Ml Neb INHALATION 3 ml RT-TID OANH Administration Albuterol/Ipratropium 3 ml 08/26/23 09:32 Ipratropium-Albuterol 3 Ml Neb INHALATION RT-QID PRN Shortness Of Breath Apixaban 5 mg 08/26/23 09:00 08/26/23 08:53 Apixaban 5 Mg Tab PO 5 mg BID OANH Administration Protocol Budesonide/Formoterol Fumarate 2 puff 08/26/23 08:00 08/26/23 08:18 Symbicort 80-4.5 Mcg Inhaler INHALATION 2 puff RT-BID OANH Administration Cholecalciferol 75 mcg 08/26/23 09:00 08/26/23 08:53 Cholecalciferol 25 Mcg (1000 Iu) Tablet PO 75 mcg DAILY OANH Administration Furosemide 40 mg 08/26/23 09:30 08/26/23 10:16 Furosemide 10 Mg/Ml 4 Ml Vial IV 40 mg Q12H OANH Administration Magnesium Oxide 400 mg 08/26/23 09:45 08/26/23 10:14 Magnesium Oxide 400 Mg Tab PO 400 mg DAILY OANH Administration Methylprednisolone Sodium Succinate 40 mg 08/26/23 21:00 Methylprednisolone Sod Succi 125 Mg/2 Ml Vial IV BID OANH Metoprolol Succinate 75 mg 08/26/23 21:00 Metoprolol Succinate (Er) 25 Mg Tab.Er.24h PO HS OANH Montelukast Sodium 10 mg 08/26/23 21:00 Montelukast 10 Mg Tab PO HS OANH Naloxone HCl 0.2 mg 08/25/23 20:21 Naloxone 0.4 Mg/Ml 1 Ml Vial IVP Q2M PRN Opioid Reversal Ondansetron HCl 4 mg 08/25/23 20:22 Ondansetron 4 Mg/2 Ml Vial IVP Q8HR PRN Nausea And Vomiting Pantoprazole Sodium 40 mg 08/26/23 09:00 08/26/23 08:53 Pantoprazole 40 Mg Tablet PO 40 mg BID OANH Administration Potassium Chloride 20 meq 08/26/23 09:45 08/26/23 10:14 Potassium Chloride Er 20 Meq Tab.Er PO 20 meq DAILY OANH Administration Tamsulosin HCl 0.4 mg 08/26/23 09:00 08/26/23 08:53 Tamsulosin 0.4 Mg Cap.Er.24h PO 0.4 mg DAILY OANH Administration Intake and Output 08/25/23 08/26/23 08/26/23 22:59 06:59 14:59 Other: Weight 81.647 kg 08/26/23 08:21 08/26/23 08:21
--- NOTE | 2023-08-26 13:33 | P.HPIM ---
History of Present Illness H&P Date: 08/26/23 Chief Complaint: Shortness of breath * 78-year-old patient with past medical history significant for chronic congestive heart failure systolic dysfunction, history of atrial fibrillation, s/p pacemaker in place, chronic kidney disease, history of breast cancer s/p lumpectomy, chronic hypoxic respiratory failure on home oxygen 3 L at baseline history of obstructive lung disease presents to the emergency department with complaints of difficulty in breathing. Patient was admitted early in June with similar presentation and was noted to have CHF exacerbation. Patient states she had significant shortness of breath cough, significant anxiety. * At time of presentation workup initiated in ER included serum chemistry which showed sodium 143 potassium 4.4, dioxide 31 BUN 39 creatinine 1.66, CBC showed WBC 8.7 hemoglobin 11 hematocrit 37 platelet count of 197 chest x-ray was obtained which showed significant amount of bilateral opacities and effusion. [place] [address], serial troponins were obtained which was 0.053, 0.042, 0.041 INR was 1.2. Patient tested negative for influenza COVID and RSV. At the time of presentation in ER patient was noted to be in distress and was placed on BiPAP gradually weaned down to nasal cannula * Patient was admitted to medical floor with consultation from cardiology and pulmonary medicine REVIEW OF SYSTEMS: Shortness of breath, cough, fatigue CONSTITUTIONAL: Shortness of breath, cough, fatigue HEENT: No recent visual problems or hearing problems. Denied any sore throat. CARDIOVASCULAR: No chest pain, orthopnea, PND, no palpitations, no syncope. PULMONARY: Shortness of breath, cough, fatigue GASTROINTESTINAL: No diarrhea, no nausea, no vomiting, no abdominal pain. NEUROLOGICAL: No headaches, no weakness, no numbness. HEMATOLOGICAL: Denies any bleeding or petechiae. GENITOURINARY: Denies any burning micturition, frequency, or urgency. MUSCULOSKELETAL/RHEUMATOLOGICAL: Denies any joint pain, swelling, or any muscle pain. ENDOCRINE: Denies any polyuria or polydipsia. PHYSICAL EXAMINATION: GENERAL: The patient is alert and oriented x3, ill appearance, nasal cannula in place HEENT: Pupils are round and equally reacting to light. EOMI. CARDIOVASCULAR: S1 and S2 present. Irregular PULMONARY: Decreased breath sounds bilaterally, rhonchi audible ABDOMEN: Soft, nontender, nondistended, normoactive bowel sounds. No palpable organomegaly. MUSCULOSKELETAL: No joint swelling or deformity. EXTREMITIES: No cyanosis, clubbing, or pedal edema. NEUROLOGICAL: Gross neurological examination did not reveal any focal deficits. SKIN: No rashes. Past Medical History Past Medical History: Atrial Fibrillation, Asthma, Cancer, Heart Failure, COPD, GERD/Reflux, Skin Disorder Additional Past Medical History / Comment(s): COPD, asthma, breast cancer-right lumpectomy and radiation therapy 25 years ago, wears 3L NC at home, chronic atrial fibrillation, CHF (systolic ). Arthritis, dry patch on right leg, gout History of Any Multi-Drug Resistant Organisms: None Reported Past Surgical History: Section, Heart Catheterization, Hernia Repair, Pacemaker Additional Past Surgical History / Comment(s): left hand surgery for broken index and middle finger Past Anesthesia/Blood Transfusion Reactions: No Reported Reaction Type of Cardiac Device: Permanent Pacemaker Device Placement Date:: 07/2021 Past Psychological History: Depression Smoking Status: Former smoker Past Alcohol Use History: None Reported Past Drug Use History: None Reported - Past Family History Mother Family Medical History: Diabetes Mellitus Medications and Allergies Home Medications Medication Instructions Recorded Confirmed Type Apixaban [Eliquis] 5 mg PO BID 11/12/22 08/25/23 History Cholecalciferol [Vitamin D3 (25 75 mcg PO DAILY 11/12/22 08/25/23 History Mcg = 1000 Iu)] Ipratropium/Albuter 20-100Mcg 1 puff INHALATION RT-QID PRN 11/12/22 08/25/23 History [Combivent Respimat 20-100Mcg Inhaler] Metoprolol Succinate [Metoprolol 75 mg PO HS 11/12/22 08/25/23 History Succinate ER] Montelukast [Singulair] 10 mg PO HS 11/12/22 08/25/23 History Power C Supplement 2 tab PO DAILY 11/12/22 08/25/23 History Vitamin B Complex 1 cap PO DAILY 11/12/22 08/25/23 History Albuterol Inhaler [Ventolin Hfa 2 puff INHALATION RT-QID PRN #1 11/19/22 08/25/23 Rx Inhaler] each Ipratropium-Albuterol Nebulize 3 ml INHALATION RT-TID 06/25/23 08/25/23 History [Duoneb 0.5 mg-3 mg/3 ml Soln] Torsemide [Demadex] 20 mg PO BID@0900,1600 tab 07/13/23 08/25/23 Rx acetaZOLAMIDE [Diamox] 250 mg PO BID tab 07/13/23 08/25/23 Rx Fluticasone/Umeclidin/Vilanter 1 puff INHALATION RT-DAILY 08/25/23 08/25/23 History [Trelegy Ellipta 100-62.5-25] Magnesium Oxide [Mag-Ox] 400 mg PO DAILY 08/25/23 08/25/23 History Omeprazole 20 mg PO BID 08/25/23 08/25/23 History Potassium Chloride ER [K-Dur 20] 20 meq PO DAILY 08/25/23 08/25/23 History Tamsulosin [Flomax] 0.4 mg PO DAILY 08/25/23 08/25/23 History Allergies Allergy/AdvReac Type Severity Reaction Status Date / Time aspirin Allergy Anaphylaxis Verified 08/25/23 20:24 ibuprofen Allergy Anaphylaxis Verified 08/25/23 20:24 Physical Exam Vitals: Vital Signs Temp Pulse Resp BP Pulse Ox FiO2 08/26/23 09:20 78 22 113/78 90 L 08/26/23 08:54 77 20 113/75 90 L 08/26/23 08:32 76 08/26/23 08:18 70 6 L 08/26/23 07:23 97.8 F 70 22 103/76 95 08/26/23 07:21 88 L 08/26/23 06:00 89 16 116/64 90 L 08/26/23 05:55 86 08/26/23 05:49 80 08/26/23 03:04 40 08/26/23 02:00 71 16 107/71 95 08/26/23 00:51 40 08/25/23 22:32 72 20 100/79 95 08/25/23 21:27 40 08/25/23 21:25 75 08/25/23 21:16 92 L 08/25/23 21:10 82 08/25/23 20:40 75 18 104/80 90 L 08/25/23 18:10 90 20 08/25/23 18:00 90 18 08/25/23 17:40 90 20 121/67 93 L 08/25/23 16:48 26 H 08/25/23 16:42 96.9 F L 91 26 H 141/109 92 L Intake and Output 08/25/23 08/26/23 08/26/23 22:59 06:59 14:59 Other: Weight 81.647 kg Results CBC & Chem 7: 08/26/23 08:21 08/26/23 08:21 Labs: Abnormal Lab Results - Last 24 Hours (Table) 08/25/23 08/25/23 08/25/23 Range/Units 17:31 17:31 17:31 Hgb 11.0 L (11.4-16.0) gm/dL MCHC 29.5 L (31.0-37.0) g/dL RDW 16.8 H (11.5-15.5) % PT 12.6 H (10.0-12.5) sec INR 1.2 H (<1.2) APTT 31.0 H (22.0-30.0) sec Carbon Dioxide 31 H (22-30) mmol/L BUN 39 H (7-17) mg/dL Creatinine 1.66 H (0.52-1.04) mg/dL Glucose 108 H (74-99) mg/dL Magnesium 2.8 H (1.6-2.3) mg/dL Troponin I (0.000-0.034) ng/mL Total Protein 5.9 L (6.3-8.2) g/dL 08/25/23 08/25/23 08/26/23 Range/Units 17:31 20:39 00:03 Hgb (11.4-16.0) gm/dL MCHC (31.0-37.0) g/dL RDW (11.5-15.5) % PT (10.0-12.5) sec INR (<1.2) APTT (22.0-30.0) sec Carbon Dioxide (22-30) mmol/L BUN (7-17) mg/dL Creatinine (0.52-1.04) mg/dL Glucose (74-99) mg/dL Magnesium (1.6-2.3) mg/dL Troponin I 0.053 H* 0.042 H* 0.041 H* (0.000-0.034) ng/mL Total Protein (6.3-8.2) g/dL Assessment and Plan Assessment: Assessment and plan * Acute on chronic hypoxic respiratory failure * Acute on chronic exacerbation of congestive heart failure systolic dysfunction ejection fraction 35% * History of atrial fibrillation s/p pacemaker in place * History of pulmonary hypertension * History of COPD with acute exacerbation * Gastroesophageal reflux disease * History of severe pulmonary hypertension * Chronic kidney disease * In regards to CHF exacerbation continue patient on IV Lasix, cardiology consulted continue to monitor intake and output. Follow-up on renal profile while on diuresis * Regards to acute on chronic hypoxic respiratory failure, multifactorial likely secondary to obstructive lung disease and CHF. Continue breathing treatments, on IV Solu-Medrol 40 mg twice daily * In regards to history of A-fib continue telemonitoring optimize electrolytes continue rate control medications including metoprolol, continue Eliquis * In regards to history of pulmonary hypertension, pulmonary medicine consulted appreciate input * In regards to chronic kidney disease continue to monitor creatinine while on diuresis * CODE STATUS is full code Time with Patient: Greater than 30
[2023-08-26 19:53] LABS: Glucose,Whole Blood 244 mg/dL (70-110)
[2023-08-26] MEDS: MONTELUKAST 10 MG TAB PO SCH (20:51)
[2023-08-26] MEDS: METOPROLOL SUCCINATE (ER) 25 MG TAB.ER.24H PO SCH (20:52)
[2023-08-26] MEDS ORDERED: ZINC OXIDE PASTE (Z-GUARD) 1 APPLIC TOPICAL PRN (21:29)
[2023-08-27 06:14] LABS: Glucose,Whole Blood 128 mg/dL (70-110)
[2023-08-27 09:55] LABS: Anisocytosis Slight; HCT 33.4 % (34.0-46.0); HGB 10.1 gm/dL (11.4-16.0); Hypochromasia Marked; MCH 29.2 pg (25.0-35.0); MCHC 30.2 g/dL (31.0-37.0); MCV 96.6 fL (80.0-100.0); Mean Platelet Volume 9.7; Platelet Count 189 k/uL (150-450); RBC 3.45 m/uL (3.80-5.40); RDW 16.8 % (11.5-15.5); WBC 9.5 k/uL (3.8-10.6)
[2023-08-27 10:07] LABS: African American GFR (CKD) 30 (>60 ml/min/1.73 sqM); Anion Gap 7 mmol/L; Blood Urea Nitrogen 53 mg/dL (7-17); Calcium 8.8 mg/dL (8.4-10.2); Carbon Dioxide 27 mmol/L (22-30); Chloride 108 mmol/L (98-107); Glucose 168 mg/dL (74-99); Non-African American GFR(CKD) 26 (>60 ml/min/1.73 sqM); Potassium 4.5 mmol/L (3.5-5.1); Sodium 142 mmol/L (137-145)
[2023-08-27 10:09] LABS: NT-Pro-B-Type Natriuretic Pept 18100 pg/mL
--- NOTE | 2023-08-27 11:04 | P.PN ---
Subjective Progress Note Date: 08/27/23 Consult reason: congestive heart failure, shortness of breath History of present illness: History of present illness: Patient is a pleasant 78-year-old female with significant past medical history of atrial fibrillation, asthma, breast cancer, heart failure, COPD, GERD, arthritis, pacemaker, former smoker who presents for worsening shortness of breath and cough. She does follow with Dr. Benitez in the office. She states over the past 3 to 4 days she has had worsening of her shortness of breath and cough. Denies any fevers, reports chills. She denies any chest pain but does feel chest tightness with coughing. Denies any dizziness or syncope. She was taking her medications as prescribed at home. She was recently admitted in June 2023 with CHF exacerbation. Echo was done at that time 06/26/2023 with a EF 35-40%, elevated RVSP 51, moderate mitral regurgitation, severe tricuspid regurgitation, mildmoderate aortic regurgitation. Labs reviewed today: Hemoglobin 9.6, potassium 4.1, creatinine 1.57, troponin 0.053, 0.042, 0.041, proBNP 16,700. Of note her troponins appear to be chronically elevated. Pulmonology has been consulted. She is currently on IV diuretics. 08/27 Patient is seen today in follow-up. Blood pressure 109/70, heart rate in the 70s, pulse ox 93% on 6 L nasal cannula. Telemetry is ventricular paced rhythm. Patient has been maintained on IV Lasix 40 mg every 12 hours. Patient is also on IV Solu-Medrol and followed by pulmonary medicine. Repeat blood work reveals WBC 9.5, hemoglobin 10.1, platelet count 189. Sodium 142, potassium 4.5, BUN 53 creatinine 1.86. BNP 18,100. Patient complains of significant cough and Tessalon Perles will be added. Patient continues to have wheezing. PHYSICAL EXAMINATION: This is a 78-year-old female in no apparent distress at the time of my examination. HEENT: Head is atraumatic, normocephalic. Pupils are equal, round. Sclerae anicteric. Conjunctivae are clear. Mucous membranes of the mouth are moist. Neck is supple. There is no jugular venous distention. No carotid bruit is heard. CHEST EXAMINATION: Lungs with basilar crackles. Mildly dyspnic on exam. Posi tive expiratory wheeze no chest wall tenderness is noted on palpation or with deep breathing. On NC 6L O2. HEART EXAMINATION: Heart regular rate and rhythm. S1, S2 heard. No murmurs, gallops or rub. ABDOMEN: Soft, nontender. Bowel sounds are heard. EXTREMITIES: 2+ peripheral pulses with +1 peripheral edema and no calf tenderness noted. NEUROLOGIC EXAMINATION: Patient is awake, alert and oriented x3. IMPRESSION AND PLAN: Atrial fibrillation, paroxysmal Acute hypoxic respiratory failure secondary to combination of acute on chronic systolic heart failure, COPD, anemia Pulmonary Hypertension COPD Dyspnea History of pacemaker Elevated troponin, chronic Anemia Acute kidney injury PLAN: We will continue with IV Lasix 40 mg twice daily Start patient on Tessalon Perles 200 mg 3 times daily Monitor I&O and renal function. No change in medications continue current diuretics possible switch to oral tomorrow Consider outpatient ischemic work up for decrease in EF. Concern for possilbe RV cardiomyopathy, may consider upgrade to Bi-V pacemaker. We will follow. Nurse practitioner note has been reviewed, I agree with documented findings and plan of care. Patient was seen and examined. Objective - Vital Signs Vital signs: Vital Signs Temp 98.5 F 08/26/23 20:00 Pulse 71 08/27/23 04:00 Resp 18 08/27/23 04:00 BP 109/70 08/27/23 04:00 Pulse Ox 93 L 08/27/23 04:00 FiO2 40 08/27/23 04:42 Intake & Output 08/26/23 08/27/23 08/27/23 18:59 06:59 18:59 Intake Total 240 118 Output Total 300 300 650 Balance -300 -60 -532 Intake: Oral 240 118 Output: Urine 300 300 650 Other: Voiding Method Bedside Commode Diaper External Catheter # Bowel Movements 1 - Labs CBC & Chem 7: 08/27/23 09:24 08/27/23 09:24 Labs: Abnormal Lab Results - Last 24 Hours (Table) 08/26/23 08/26/23 08/26/23 Range/Units 08:21 08:21 19:50 RBC 3.40 L (3.80-5.40) m/uL Hgb 9.6 L (11.4-16.0) gm/dL Hct 32.9 L (34.0-46.0) % MCHC 29.3 L (31.0-37.0) g/dL RDW 16.8 H (11.5-15.5) % Lymphocytes # 0.2 L (1.0-4.8) k/uL Chloride 109 H (98-107) mmol/L BUN 45 H (7-17) mg/dL Creatinine 1.57 H (0.52-1.04) mg/dL Glucose 162 H (74-99) mg/dL POC Glucose (mg/dL) 244 H (70-110) mg/dL Phosphorus 4.6 H (2.5-4.5) mg/dL Magnesium 2.8 H (1.6-2.3) mg/dL Total Protein 5.5 L (6.3-8.2) g/dL Albumin 3.1 L (3.5-5.0) g/dL 08/27/23 Range/Units 06:12 RBC (3.80-5.40) m/uL Hgb (11.4-16.0) gm/dL Hct (34.0-46.0) % MCHC (31.0-37.0) g/dL RDW (11.5-15.5) % Lymphocytes # (1.0-4.8) k/uL Chloride (98-107) mmol/L BUN (7-17) mg/dL Creatinine (0.52-1.04) mg/dL Glucose (74-99) mg/dL POC Glucose (mg/dL) 128 H (70-110) mg/dL Phosphorus (2.5-4.5) mg/dL Magnesium (1.6-2.3) mg/dL Total Protein (6.3-8.2) g/dL Albumin (3.5-5.0) g/dL
[2023-08-27 11:50] LABS: Glucose,Whole Blood 124 mg/dL (70-110)
[2023-08-27] MEDS: BENZONATATE 100 MG CAP PO SCH (12:05)
--- NOTE | 2023-08-27 12:23 | P.PN ---
Subjective Progress Note Date: 08/27/23 Principal diagnosis: Shortness of breath. Pulmonary consult dated August 26, 2023. 78-year-old female seen in the emergency department, on August 26. She presented to the ER, on August 25, complaining of shortness of breath. The patient had been having shortness of breath for couple days prior to admission. In addition, he had a persistent cough, and lower extremity edema. The patient was evaluated, and was found to have CHF. The patient was initially placed on BiPAP, with settings of 16/5 and 40%. When I saw her in the emergency department, she was in room #5, and was on 4 L by nasal cannula. The patient was not getting any IV fluids. She is feeling a bit better. Her past medical history is positive for atrial fibrillation, asthma, breast cancer, heart fa ilure, COPD, GERD, arthritis, and gout. The patient has had a pacemaker implanted as well. She was a former smoker in the past. White count 8.7, hemoglobin 11, hematocrit 37.3, and platelet count was 197,000. PT 12.6, INR 1.2, PTT is 31. Sodium 143, potassium 4.4, chlorides 106, CO2 31, BUN 39, creatinine 1.66. Her troponins were 0.053, 0.042, and 0.041. Her N-terminal proBNP was 16,700. She tested negative for influenza, RSV, and coronavirus. Chest x-ray showed the pacemaker, cardiomegaly, cephalization, bilateral pleural effusions. Progress note dated August 27, 2023. 78-year-old female seen in the emergency department, on August 26. The patient came into the ER on 25 August, complaining of shortness of breath. The patient was found to have congestive heart failure. The patient was placed on BiPAP. She is currently on 16/5 and 40%. She is not receiving any IV fluids. The patient is feeling better. White count is 9.5, hemoglobin 10.1, hematocrit 33.4, and a platelet count of 189,000. Sodium 142, potassium 4.5, chlorides 108, CO2 27, BUN 53, and creatinine 1.86. Glucose is 124. N-terminal proBNP was 18,100. Microbiology was pending are negative. No recent chest x-ray. Objective - Vital Signs Vital signs: Vital Signs Temp 98.5 F 08/26/23 20:00 Pulse 71 08/27/23 12:03 Resp 16 08/27/23 12:03 BP 118/74 08/27/23 12:03 Pulse Ox 95 08/27/23 12:04 FiO2 40 08/27/23 08:46 Intake & Output 08/26/23 08/27/23 08/27/23 18:59 06:59 18:59 Intake Total 240 118 Output Total 300 300 650 Balance -300 -60 -532 Intake: Oral 240 118 Output: Urine 300 300 650 Other: Voiding Method Bedside Commode Bedside Commode Diaper Diaper External Catheter External Catheter # Bowel Movements 1 - Exam Mild dyspnea, oriented 3. Currently on BiPAP. Saturations are in the mid 90s. HEENT examination is grossly unremarkable. Neck supple. Full range of motion. No adenopathy thyromegaly or neck vein distention. Cardiovascular examination reveals regular rhythm rate. S1-S2 normal. No S3 or S4. A soft systolic murmur is noted. Heart sounds are distant. Heart rate 21 bpm. Lungs reveal basilar crackles. No wheezes or rhonchi. Breath sounds are equal bilaterally. BiPAP saturation is 96%. Abdomen soft with bowel sounds. No masses or tenderness. Extremities are intact. No cyanosis or clubbing. 1+ pitting edema. Skin is without rash or lesion. Neurologic examination is brief but nonfocal. - Labs CBC & Chem 7: 08/27/23 09:24 08/27/23 09:24 Labs: Abnormal Lab Results - Last 24 Hours (Table) 08/26/23 08/27/23 08/27/23 Range/Units 19:50 06:12 09:24 RBC 3.45 L (3.80-5.40) m/uL Hgb 10.1 L (11.4-16.0) gm/dL Hct 33.4 L (34.0-46.0) % MCHC 30.2 L (31.0-37.0) g/dL RDW 16.8 H (11.5-15.5) % Chloride (98-107) mmol/L BUN (7-17) mg/dL Creatinine (0.52-1.04) mg/dL Glucose (74-99) mg/dL POC Glucose (mg/dL) 244 H 128 H (70-110) mg/dL 08/27/23 08/27/23 Range/Units 09:24 11:48 RBC (3.80-5.40) m/uL Hgb (11.4-16.0) gm/dL Hct (34.0-46.0) % MCHC (31.0-37.0) g/dL RDW (11.5-15.5) % Chloride 108 H (98-107) mmol/L BUN 53 H (7-17) mg/dL Creatinine 1.86 H (0.52-1.04) mg/dL Glucose 168 H (74-99) mg/dL POC Glucose (mg/dL) 124 H (70-110) mg/dL Assessment and Plan Assessment: Acute hypoxemic respiratory failure secondary to systolic CHF. History of atrial fibrillation, status post pacemaker implantation. History of severe pulmonary hypertension. History of valvular heart disease. History of COPD/asthma. History of breast cancer, with previous lumpectomy on the right. Chronic hypoxemic respiratory failure, on home O2. Gastroesophageal reflux disease. History of gout. Prior history of tobacco use. History of depression. Plan: Plan dated August 26, 2023. The patient is seen in the emergency department. Labs, x-rays, and medications are reviewed. The patient is admitted primarily for CHF. She apparently has a history of systolic CHF. She also has a history of chronic atrial fibrillation, status post pacemaker insertion. She was a former smoker and has either COPD or asthma, or both. We saw the patient last in June 2023, as well as in October 2022. I saw the patient last in June 2023. At that time, she was admitted with a diagnosis of acute on chronic hypoxemic respiratory failure secondary to systolic CHF, with an ejection fraction of 35%, as well as a history of valvular heart disease. The patient also has a history of severe pulmonary hypertension. Additional recommendations and suggestions are forthcoming. Prognosis is guar ded. Cardiology has been consulted. Plan dated August 27, 2023. The patient is currently on BiPAP, but can be transitioned to nasal cannula. Labs, x-rays, and medications are all reviewed. The patient appears to be clinically better. We will continue to follow and make recommendations along t he way. The patient is being seen by cardiology. In addition to CHF, with an ejection fraction of 35%. The patient has a history of chronic atrial fibrillation, pacemaker insertion, and COPD from previous tobacco use. We will continue to follow the patient, and make recommendations along the way. Prognosis is guarded. Time with Patient: Less than 30
--- NOTE | 2023-08-27 13:30 | P.PN ---
Subjective Progress Note Date: 08/27/23 * 78-year-old patient with past medical history significant for chronic congestive heart failure systolic dysfunction, history of atrial fibrillation, s/p pacemaker in place, chronic kidney disease, history of breast cancer s/p lumpectomy, chronic hypoxic respiratory failure on home oxygen 3 L at baseline history of obstructive lung disease presents to the emergency department with complaints of difficulty in breathing. Patient was admitted early in June with similar presentation and was noted to have CHF exacerbation. Patient states she had significant shortness of breath cough, significant anxiety. * At time of presentation workup initiated in ER included serum chemistry which showed sodium 143 potassium 4.4, dioxide 31 BUN 39 creatinine 1.66, CBC showed WBC 8.7 hemoglobin 11 hematocrit 37 platelet count of 197 chest x-ray was obtained which showed significant amount of bilateral opacities and effusion. [place] [address], serial troponins were obtained which was 0.053, 0.042, 0.041 INR was 1.2. Patient tested negative for influenza COVID and RSV. At the time of presentation in ER patient was noted to be in distress and was placed on BiPAP gradually weaned down to nasal cannula * Patient was admitted to medical floor with [facility] * 08/27/23: Patient seen and evaluated bedside, patient does complain of shortness of breath continue to remain on high flow oxygen on 5 L. Continue on IV Lasix, started on azithromycin secondary to sputum production. Seen by pulmonary medicine. Recurrent hospitalization prognosis remains guarded initiated on Mucinex as well REVIEW OF SYSTEMS: Shortness of breath, cough, fatigue CONSTITUTIONAL: Shortness of breath, cough, fatigue HEENT: No recent visual problems or hearing problems. Denied any sore throat. CARDIOVASCULAR: No chest pain, orthopnea, PND, no palpitations, no syncope. PULMONARY: Shortness of breath, cough, fatigue GASTROINTESTINAL: No diarrhea, no nausea, no vomiting, no abdominal pain. NEUROLOGICAL: No headaches, no weakness, no numbness. HEMATOLOGICAL: Denies any bleeding or petechiae. GENITOURINARY: Denies any burning micturition, frequency, or urgency. MUSCULOSKELETAL/RHEUMATOLOGICAL: Denies any joint pain, swelling, or any muscle pain. ENDOCRINE: Denies any polyuria or polydipsia. PHYSICAL EXAMINATION: GENERAL: The patient is alert and oriented x3, ill appearance, nasal cannula in place HEENT: Pupils are round and equally reacting to light. EOMI. CARDIOVASCULAR: S1 and S2 present. Irregular PULMONARY: Decreased breath sounds bilaterally, rhonchi audible ABDOMEN: Soft, nontender, nondistended, normoactive bowel sounds. No palpable organomegaly. MUSCULOSKELETAL: No joint swelling or deformity. EXTREMITIES: No cyanosis, clubbing, or pedal edema. NEUROLOGICAL: Gross neurological examination did not reveal any focal deficits. SKIN: No rashes. Objective - Vital Signs Vital signs: Vital Signs Temp 98.3 F 08/26/23 18:10 Pulse 75 08/26/23 20:59 Resp 19 08/26/23 18:10 BP 117/90 08/26/23 18:10 Pulse Ox 93 L 08/26/23 18:10 FiO2 40 08/26/23 03:04 Intake & Output 08/26/23 08/26/23 08/27/23 06:59 18:59 06:59 Intake Total 240 Output Total 300 Balance -300 240 Intake: Oral 240 Output: Urine 300 - Labs CBC & Chem 7: 08/27/23 09:24 08/27/23 09:24 Labs: Abnormal Lab Results - Last 24 Hours (Table) 08/25/23 08/26/23 08/26/23 Range/Units 20:39 00:03 08:21 RBC 3.40 L (3.80-5.40) m/uL Hgb 9.6 L (11.4-16.0) gm/dL Hct 32.9 L (34.0-46.0) % MCHC 29.3 L (31.0-37.0) g/dL RDW 16.8 H (11.5-15.5) % Lymphocytes # 0.2 L (1.0-4.8) k/uL Chloride (98-107) mmol/L BUN (7-17) mg/dL Creatinine (0.52-1.04) mg/dL Glucose (74-99) mg/dL POC Glucose (mg/dL) (70-110) mg/dL Phosphorus (2.5-4.5) mg/dL Magnesium (1.6-2.3) mg/dL Troponin I 0.042 H* 0.041 H* (0.000-0.034) ng/mL Total Protein (6.3-8.2) g/dL Albumin (3.5-5.0) g/dL 08/26/23 08/26/23 Range/Units 08:21 19:50 RBC (3.80-5.40) m/uL Hgb (11.4-16.0) gm/dL Hct (34.0-46.0) % MCHC (31.0-37.0) g/dL RDW (11.5-15.5) % Lymphocytes # (1.0-4.8) k/uL Chloride 109 H (98-107) mmol/L BUN 45 H (7-17) mg/dL Creatinine 1.57 H (0.52-1.04) mg/dL Glucose 162 H (74-99) mg/dL POC Glucose (mg/dL) 244 H (70-110) mg/dL Phosphorus 4.6 H (2.5-4.5) mg/dL Magnesium 2.8 H (1.6-2.3) mg/dL Troponin I (0.000-0.034) ng/mL Total Protein 5.5 L (6.3-8.2) g/dL Albumin 3.1 L (3.5-5.0) g/dL Assessment and Plan Assessment: Assessment and plan * Acute on chronic hypoxic respiratory failure * Acute on chronic exacerbation of congestive heart failure systolic dysfunction ejection fraction 35% * History of atrial fibrillation s/p pacemaker in place * History of pulmonary hypertension * History of COPD with acute exacerbation with tracheobronchitis * Gastroesophageal reflux disease * History of severe pulmonary hypertension * Chronic kidney disease * In regards to CHF exacerbation continue patient on IV Lasix, cardiology consulted, appreciate recommendations continue to monitor intake and output. Follow-up on renal profile while on diuresis * Regards to acute on chronic hypoxic respiratory failure, multifactorial likely secondary to obstructive lung disease and CHF. Continue breathing treatments, on IV Solu-Medrol 40 mg twice daily, continue azithromycin * In regards to history of A-fib continue telemonitoring optimize electrolytes continue rate control medications including metoprolol, continue Eliquis * In regards to history of pulmonary hypertension, pulmonary medicine consulted appreciate input * In regards to chronic kidney disease continue to monitor creatinine while on diuresis * CODE STATUS is full code Time with Patient: Greater than 30
[2023-08-27] MEDS: AZITHROMYCIN 500 MG TAB PO SCH (15:30)
[2023-08-27 17:08] LABS: Glucose,Whole Blood 150 mg/dL (70-110)
[2023-08-27 20:23] LABS: Glucose,Whole Blood 167 mg/dL (70-110)
[2023-08-28 06:25] LABS: Glucose,Whole Blood 144 mg/dL (70-110)
[2023-08-28 08:10] LABS: Anisocytosis Slight; HCT 31.2 % (34.0-46.0); HGB 9.4 gm/dL (11.4-16.0); Hypochromasia Marked; MCH 28.7 pg (25.0-35.0); MCHC 30.1 g/dL (31.0-37.0); MCV 95.3 fL (80.0-100.0); Mean Platelet Volume 9.2; Platelet Count 177 k/uL (150-450); RBC 3.28 m/uL (3.80-5.40); RDW 16.6 % (11.5-15.5); WBC 7.7 k/uL (3.8-10.6)
[2023-08-28 10:14] LABS: African American GFR (CKD) 28 (>60 ml/min/1.73 sqM); Anion Gap 4 mmol/L; Blood Urea Nitrogen 58 mg/dL (7-17); Calcium 8.7 mg/dL (8.4-10.2); Carbon Dioxide 30 mmol/L (22-30); Chloride 108 mmol/L (98-107); Glucose 133 mg/dL (74-99); Non-African American GFR(CKD) 24 (>60 ml/min/1.73 sqM); Potassium 4.3 mmol/L (3.5-5.1); Sodium 142 mmol/L (137-145)
[2023-08-28 11:54] LABS: Glucose,Whole Blood 147 mg/dL (70-110)
--- NOTE | 2023-08-28 12:08 | P.PN ---
Subjective Progress Note Date: 08/28/23 * 78-year-old patient with past medical history significant for chronic congestive heart failure systolic dysfunction, history of atrial fibrillation, s/p pacemaker in place, chronic kidney disease, history of breast cancer s/p lumpectomy, chronic hypoxic respiratory failure on home oxygen 3 L at baseline history of obstructive lung disease presents to the emergency department with complaints of difficulty in breathing. Patient was admitted early in June with similar presentation and was noted to have CHF exacerbation. Patient states she had significant shortness of breath cough, significant anxiety. * At time of presentation workup initiated in ER included serum chemistry which showed sodium 143 potassium 4.4, dioxide 31 BUN 39 creatinine 1.66, CBC showed WBC 8.7 hemoglobin 11 hematocrit 37 platelet count of 197 chest x-ray was obtained which showed significant amount of bilateral opacities and effusion. [place] [address], serial troponins were obtained which was 0.053, 0.042, 0.041 INR was 1.2. Patient tested negative for influenza COVID and RSV. At the time of presentation in ER patient was noted to be in distress and was placed on BiPAP gradually weaned down to nasal cannula * Patient was admitted to medical floor with consultation from cardiology and lmonary medicine * 08/27/23: Patient seen and evaluated bedside, patient does complain of shortness of breath continue to remain on high flow oxygen on 5 L. Continue on IV Lasix, started on azithromycin secondary to sputum production. Seen by pulmonary medicine. Recurrent hospitalization prognosis remains guarded initiated on Mucinex as well * 08/28/2023: Patient seen and evaluated bedside, patient states breathing has improved, CBC reviewed hemoglobin 9.4, WBC 7.7, serum chemistry showed creatinine 1.95, potassium of 4.3. Continue patient on IV Lasix CRP around 3 we will follow-up on N-terminal proBNP for tomorrow. REVIEW OF SYSTEMS: Shortness of breath, cough, fatigue improved CONSTITUTIONAL: Shortness of breath, cough, fatigue improved HEENT: No recent visual problems or hearing problems. Denied any sore throat. CARDIOVASCULAR: No chest pain, orthopnea, PND, no palpitations, no syncope. PULMONARY: Shortness of breath, cough, fatigue improved GASTROINTESTINAL: No diarrhea, no nausea, no vomiting, no abdominal pain. NEUROLOGICAL: No headaches, no weakness, no numbness. HEMATOLOGICAL: Denies any bleeding or petechiae. GENITOURINARY: Denies any burning micturition, frequency, or urgency. MUSCULOSKELETAL/RHEUMATOLOGICAL: Denies any joint pain, swelling, or any muscle pain. ENDOCRINE: Denies any polyuria or polydipsia. PHYSICAL EXAMINATION: GENERAL: The patient is alert and oriented x3, ill appearance, nasal cannula in place HEENT: Pupils are round and equally reacting to light. EOMI. CARDIOVASCULAR: S1 and S2 present. Irregular PULMONARY: Decreased breath sounds bilaterally, rhonchi audible ABDOMEN: Soft, nontender, nondistended, normoactive bowel sounds. No palpable organomegaly. MUSCULOSKELETAL: No joint swelling or deformity. EXTREMITIES: Lower extremity edema present NEUROLOGICAL: Gross neurological examination did not reveal any focal deficits. SKIN: No rashes. Objective - Vital Signs Vital signs: Vital Signs Temp 97.4 F L 08/28/23 08:17 Pulse 76 08/28/23 11:57 Resp 18 08/28/23 11:49 BP 128/69 08/28/23 11:49 Pulse Ox 96 08/28/23 11:49 FiO2 40 08/28/23 02:59 Intake & Output 08/27/23 08/28/23 08/28/23 18:59 06:59 18:59 Intake Total 894 540 180 Output Total 1000 450 Balance -106 90 180 Weight 78 kg Intake: Oral 894 540 180 Output: Urine 1000 450 Other: Voiding Method Bedside Commode Bedside Commode Bedside Commode Diaper Diaper Diaper External Catheter External Catheter External Catheter # Voids 1 # Bowel Movements 1 1 1 - Labs CBC & Chem 7: 08/28/23 07:34 08/28/23 07:34 Labs: Abnormal Lab Results - Last 24 Hours (Table) 08/27/23 08/27/23 08/28/23 Range/Units 17:07 20:22 06:23 RBC (3.80-5.40) m/uL Hgb (11.4-16.0) gm/dL Hct (34.0-46.0) % MCHC (31.0-37.0) g/dL RDW (11.5-15.5) % Chloride (98-107) mmol/L BUN (7-17) mg/dL Creatinine (0.52-1.04) mg/dL Glucose (74-99) mg/dL POC Glucose (mg/dL) 150 H 167 H 144 H (70-110) mg/dL C-Reactive Protein (<1.0) mg/dL 08/28/23 08/28/23 08/28/23 Range/Units 07:34 07:34 11:50 RBC 3.28 L (3.80-5.40) m/uL Hgb 9.4 L (11.4-16.0) gm/dL Hct 31.2 L (34.0-46.0) % MCHC 30.1 L (31.0-37.0) g/dL RDW 16.6 H (11.5-15.5) % Chloride 108 H (98-107) mmol/L BUN 58 H (7-17) mg/dL Creatinine 1.95 H (0.52-1.04) mg/dL Glucose 133 H (74-99) mg/dL POC Glucose (mg/dL) 147 H (70-110) mg/dL C-Reactive Protein 3.0 H (<1.0) mg/dL Assessment and Plan Assessment: Assessment and plan * Acute on chronic hypoxic respiratory failure * Acute on chronic exacerbation of congestive heart failure systolic dysfunction ejection fraction 35% * History of atrial fibrillation s/p pacemaker in place * History of pulmonary hypertension * History of COPD with acute exacerbation with tracheobronchitis * Gastroesophageal reflux disease * History of severe pulmonary hypertension * Chronic kidney disease * In regards to CHF exacerbation continue patient on IV Lasix, cardiology consulted, appreciate recommendations continue to monitor intake and output. Follow-up on renal profile while on diuresis * Regards to acute on chronic hypoxic respiratory failure, multifactorial likely secondary to obstructive lung disease and CHF. Continue breathing treatments, on IV Solu-Medrol 40 mg twice daily, continue azithromycin day 2 of 3 * In regards to history of A-fib continue telemonitoring optimize electrolytes continue rate control medications including metoprolol, continue Eliquis * In regards to history of pulmonary hypertension, pulmonary medicine consulted appreciate input * In regards to chronic kidney disease continue to monitor creatinine while on diuresis, baseline creatinine about 1.8-2 * Will need physical therapy occupational therapy evaluation for discharge disposition * Expected length of stay another 3 to 4 days * CODE STATUS is full code Time with Patient: Greater than 30
--- NOTE | 2023-08-28 12:39 | P.PN ---
Subjective HISTORY OF PRESENT ILLNESS: Patient is a pleasant 78-year-old female with significant past medical history of atrial fibrillation, asthma, breast cancer, heart failure, COPD, GERD, arthritis, pacemaker, former smoker who presents for worsening shortness of breath and cough. She does follow with Dr. Benitez in the office. She states over the past 3 to 4 days she has had worsening of her shortness of breath and cough. Denies any fevers, reports chills. She denies any chest pain but does feel chest tightness with coughing. Denies any dizziness or syncope. She was taking her medications as prescribed at home. She was recently admitted in June 2023 with CHF exacerbation. Echo was done at that time 06/26/2023 with a EF 35-40%, elevated RVSP 51, moderate mitral regurgitation, severe tricuspid regurgitation, mildmoderate aortic regurgitation. Labs reviewed today: Hemoglobin 9.6, potassium 4.1, creatinine 1.57, troponin 0.053, 0.042, 0.041, proBNP 16,700. Of note her troponins appear to be chronically elevated. Pulmonology has been consulted. She is currently on IV diuretics. 08/27 Patient is seen today in follow-up. Blood pressure 109/70, heart rate in the 70s, pulse ox 93% on 6 L nasal cannula. Telemetry is ventricular paced rhythm. Patient has been maintained on IV Lasix 40 mg every 12 hours. Patient is also on IV Solu-Medrol and followed by pulmonary medicine. Repeat blood work reveals WBC 9.5, hemoglobin 10.1, platelet count 189. Sodium 142, potassium 4.5, BUN 53 creatinine 1.86. BNP 18,100. Patient complains of significant cough and Tessalon Perles will be added. Patient continues to have wheezing. August 28, 2023 Patient examined this morning at the bedside. Patient currently denies chest pain or pressure. She denies shortness of breath. She remains on IV Lasix 40 mg every 12 hours. Patient's creatinine today worsened at 1.95. PHYSICAL EXAM: VITAL SIGNS: Reviewed. GENERAL: Well-developed in no acute distress. NECK: Supple. No JVD or thyromegaly LUNGS: Respirations even and unlabored. Lungs diminished bilaterally. HEART: Regular rate and rhythm. S1 and S2 heard. EXTREMITIES: Normal range of motion. No clubbing or cyanosis. Peripheral pulses intact. Trace bilateral lower extremity edema ASSESSMENT: Shortness of breath Acute hypoxic respiratory failure Acute on chronic heart failure with reduced EF, 35 to 40% Acute COPD exacerbation Atrial fibrillation, paroxysmal Acute hypoxic respiratory failure secondary to combination of acute on chronic systolic heart failure, COPD, anemia Pulmonary Hypertension History of pacemaker implantation Elevated troponin, chronic Anemia, unspecified Acute on chronic kidney disease PLAN: Continue current cardiac medications Discontinue IV Lasix Begin oral Lasix 40 mg twice a day Continue to monitor kidney function Further recommendations pending patient course Nurse practitioner note has been reviewed by physician. Signing provider agrees with the documented findings, assessment, and plan of care documented by [employer] as a scribe. Objective - Vital Signs Vital signs: Vital Signs Temp 97.4 F L 08/28/23 08:17 Pulse 76 08/28/23 11:57 Resp 18 08/28/23 11:49 BP 128/69 08/28/23 11:49 Pulse Ox 96 08/28/23 11:49 FiO2 40 08/28/23 02:59 Intake & Output 08/27/23 08/28/23 08/28/23 18:59 06:59 18:59 Intake Total 894 540 180 Output Total 1000 450 Balance -106 90 180 Weight 78 kg Intake: Oral 894 540 180 Output: Urine 1000 450 Other: Voiding Method Bedside Commode Bedside Commode Bedside Commode Diaper Diaper Diaper External Catheter External Catheter External Catheter # Voids 1 # Bowel Movements 1 1 1 - Labs CBC & Chem 7: 08/28/23 07:34 08/28/23 07:34 Labs: Abnormal Lab Results - Last 24 Hours (Table) 08/27/23 08/27/23 08/28/23 Range/Units 17:07 20:22 06:23 RBC (3.80-5.40) m/uL Hgb (11.4-16.0) gm/dL Hct (34.0-46.0) % MCHC (31.0-37.0) g/dL RDW (11.5-15.5) % Chloride (98-107) mmol/L BUN (7-17) mg/dL Creatinine (0.52-1.04) mg/dL Glucose (74-99) mg/dL POC Glucose (mg/dL) 150 H 167 H 144 H (70-110) mg/dL C-Reactive Protein (<1.0) mg/dL 08/28/23 08/28/23 08/28/23 Range/Units 07:34 07:34 11:50 RBC 3.28 L (3.80-5.40) m/uL Hgb 9.4 L (11.4-16.0) gm/dL Hct 31.2 L (34.0-46.0) % MCHC 30.1 L (31.0-37.0) g/dL RDW 16.6 H (11.5-15.5) % Chloride 108 H (98-107) mmol/L BUN 58 H (7-17) mg/dL Creatinine 1.95 H (0.52-1.04) mg/dL Glucose 133 H (74-99) mg/dL POC Glucose (mg/dL) 147 H (70-110) mg/dL C-Reactive Protein 3.0 H (<1.0) mg/dL
[2023-08-28 12:43] VITALS: BMI 31.4
--- NOTE | 2023-08-28 13:55 | P.PN ---
Subjective Progress Note Date: 08/28/23 78-year-old female seen in the emergency department, on August 26. She presented to the ER, on August 25, complaining of shortness of breath. The patient had been having shortness of breath for couple days prior to admission. In addition, he had a persistent cough, and lower extremity edema. The patient was evaluated, and was found to have CHF. The patient was initially placed on BiPAP, with settings of 16/5 and 40%. When I saw her in the emergency department, she was in room #5, and was on 4 L by nasal cannula. The patient was not getting any IV fluids. She is feeling a bit better. Her past medical history is positive for atrial fibrillation, asthma, breast cancer, heart failure, COPD, GERD, arthritis, and gout. The patient has had a pacemaker implanted as well. She was a former smoker in the past. White count 8.7, hemoglobin 11, hematocrit 37.3, and platelet count was 197,000. PT 12.6, INR 1.2, PTT is 31. Sodium 143, potassium 4.4, chlorides 106, CO2 31, BUN 39, creatinine 1.66. Her troponins were 0.053, 0.042, and 0.041. Her N-terminal proBNP was 16,700. She tested negative for influenza, RSV, and coronavirus. Chest x-ray showed the pacemaker, cardiomegaly, cephalization, bilateral pleural effusions. Progress note dated August 27, 2023. 78-year-old female seen in the emergency department, on August 26. The patient came into the ER on 25 August, complaining of shortness of breath. The patient was found to have congestive heart failure. The patient was placed on BiPAP. She is currently on 16/5 and 40%. She is not receiving any IV fluids. The patient is feeling better. White count is 9.5, hemoglobin 10.1, hematocrit 33.4, and a platelet count of 189,000. Sodium 142, potassium 4.5, chlorides 108, CO2 27, BUN 53, and creatinine 1.86. Glucose is 124. N-terminal proBNP was 18,100. Microbiology was pending are negative. No recent chest x-ray. On today's evaluation of 08/28/2023, I am seeing the patient for a follow-up. The patient is a 78-year-old female was hospitalized for worsening shortness of breath. The patient had also some increased cough and congestion and wheezing. She had increased edema lower extremities bilaterally. The patient was supported with a BiPAP at a pressure of 16 over 5 cm of water with an FiO2 of 40%. The patient is currently taken off the BiPAP and she is currently on 5 L of oxygen by nasal cannula. She is oxygen dependent at 3 L. Note that she has history of COPD and she has been maintained on Trelegy Ellipta on outpatient basis. She has acid reflux, osteoarthritis, gout, history of breast cancer, chronic A-fib and the patient has been on anticoagulation with Eliquis on outpatient basis. The labs from today shows a WBC count of 7.7, hemoglobin 10.4, BUN is a 58 with a catheter 1.9 and his sodium level is at142. As far as the renal function, the patient has chronic renal disease, stage III. The viral screen was negative.Her previous echocardiogram that was done on 06/26/2023 showed impairment of LV function with an ejection fraction of 35 to 40%. Moderate MR, severe TR, severe pulm hypertension. Objective - Vital Signs Vital signs: Vital Signs Temp 97.4 F L 08/28/23 08:17 Pulse 88 08/28/23 08:54 Resp 18 08/28/23 08:17 BP 105/60 08/28/23 08:17 Pulse Ox 92 L 08/28/23 08:17 FiO2 40 08/28/23 02:59 Intake & Output 08/27/23 08/28/23 08/28/23 18:59 06:59 18:59 Intake Total 894 540 180 Output Total 1000 450 Balance -106 90 180 Weight 78 kg Intake: Oral 894 540 180 Output: Urine 1000 450 Other: Voiding Method Bedside Commode Bedside Commode Diaper Diaper External Catheter External Catheter # Bowel Movements 1 1 - Exam Mild dyspnea, oriented 3. The patient was taken off the BiPAP and currently she is on 5 L of oxygen by nasal cannula. She is awake and alert and communicating. HEENT examination is grossly unremarkable. Neck supple. Full range of motion. No adenopathy thyromegaly or neck vein distention. Cardiovascular examination reveals regular rhythm rate. S1-S2 normal. No S3 or S4. A soft systolic murmur is noted. Heart sounds are distant. Lungs reveal basilar crackles. Extensive bruising noted on the lung chong bilaterally. Diminished breath sounds bilaterally. Abdomen soft with bowel sounds. No masses or tenderness. Extremities are intact. No cyanosis or clubbing. 1+ pitting edema. Skin is without rash or lesion. Neurologic examination is brief but nonfocal. - Labs CBC & Chem 7: 08/28/23 07:34 08/28/23 07:34 Labs: Abnormal Lab Results - Last 24 Hours (Table) 08/27/23 08/27/23 08/27/23 Range/Units 09:24 09:24 11:48 RBC 3.45 L (3.80-5.40) m/uL Hgb 10.1 L (11.4-16.0) gm/dL Hct 33.4 L (34.0-46.0) % MCHC 30.2 L (31.0-37.0) g/dL RDW 16.8 H (11.5-15.5) % Chloride 108 H (98-107) mmol/L BUN 53 H (7-17) mg/dL Creatinine 1.86 H (0.52-1.04) mg/dL Glucose 168 H (74-99) mg/dL POC Glucose (mg/dL) 124 H (70-110) mg/dL 08/27/23 08/27/23 08/28/23 Range/Units 17:07 20:22 06:23 RBC (3.80-5.40) m/uL Hgb (11.4-16.0) gm/dL Hct (34.0-46.0) % MCHC (31.0-37.0) g/dL RDW (11.5-15.5) % Chloride (98-107) mmol/L BUN (7-17) mg/dL Creatinine (0.52-1.04) mg/dL Glucose (74-99) mg/dL POC Glucose (mg/dL) 150 H 167 H 144 H (70-110) mg/dL 08/28/23 Range/Units 07:34 RBC 3.28 L (3.80-5.40) m/uL Hgb 9.4 L (11.4-16.0) gm/dL Hct 31.2 L (34.0-46.0) % MCHC 30.1 L (31.0-37.0) g/dL RDW 16.6 H (11.5-15.5) % Chloride (98-107) mmol/L BUN (7-17) mg/dL Creatinine (0.52-1.04) mg/dL Glucose (74-99) mg/dL POC Glucose (mg/dL) (70-110) mg/dL Assessment and Plan Plan: Acute hypoxemic respiratory failure secondary to systolic CHF/COPD exacerbation. The patient remains actively bronchospastic and wheezy on today's evaluation. Chest x-ray was showing cardiomegaly/pulmonary vessel congestion. Currently on 5 L of O2 nasal cannula Chronic hypoxic respiratory failure maintained on oxygen at 3 L at home Severe COPD and the patient has limited on trilogy looked on outpatient basis in addition to O2. She is an ex-smoker and she quit smoking several years back. History of atrial fibrillation, status post pacemaker implantation. The patient is maintained on long-term anticoagulation with Eliquis Systolic heart failure with ejection fraction of 35 to 40% and secondary pulmonary hypertension History of severe pulmonary hypertension. History of valvular heart disease. The patient has moderate degree of mitral regurgitation and severe tricuspid regurgitation and severe pulm hypertension. History of COPD/asthma. Chronic stage III kidney disease History of breast cancer, with previous lumpectomy on the right. Chronic hypoxemic respiratory failure, on home O2. Gastroesophageal reflux disease. History of gout. Prior history of tobacco use. History of depression. Plan: May continue utilizing the BiPAP on and off during the day and at nighttime. Continue bronchodilators Continue Solu-Medrol and changed the dose up to 60 mg every 6 hours IV Continue Lasix orally 40 mg p.o. twice a day Continue bronchodilators Monitor electrolytes Will continue to follow
[2023-08-28] MEDS: methylPREDNISolone SOD SUCCI 125 MG/2 ML VIAL IV SCH (16:33)
[2023-08-28] MEDS: FUROSEMIDE 40 MG TAB PO SCH (16:33)
[2023-08-28] MEDS: guaiFENesin 600 MG TABLET.ER PO SCH (16:33)
[2023-08-28 16:38] LABS: Glucose,Whole Blood 228 mg/dL (70-110)
[2023-08-28 19:50] LABS: Glucose,Whole Blood 224 mg/dL (70-110)
[2023-08-29 06:04] LABS: Glucose,Whole Blood 167 mg/dL (70-110)
--- NOTE | 2023-08-29 07:14 | P.PN ---
Subjective * 78-year-old patient with past medical history significant for chronic congestive heart failure systolic dysfunction, history of atrial fibrillation, s/p pacemaker in place, chronic kidney disease, history of breast cancer s/p lumpectomy, chronic hypoxic respiratory failure on home oxygen 3 L at baseline history of obstructive lung disease presents to the emergency department with complaints of difficulty in breathing. Patient was admitted early in June with similar presentation and was noted to have CHF exacerbation. Patient states she had significant shortness of breath cough, significant anxiety. * At time of presentation workup initiated in ER included serum chemistry which showed sodium 143 potassium 4.4, dioxide 31 BUN 39 creatinine 1.66, CBC showed WBC 8.7 hemoglobin 11 hematocrit 37 platelet count of 197 chest x-ray was obt ained which showed significant amount of bilateral opacities and effusion. [place] [address], serial troponins were obtained which was 0.053, 0.042, 0.041 INR was 1.2. Patient tested negative for influenza COVID and RSV. At the time of presentation in ER patient was noted to be in distress and was placed on BiPAP gradually weaned down to nasal cannula * Patient was admitted to medical floor with consultation from cardiology and pulmonary medicine * 08/27/23: Patient seen and evaluated bedside, patient does complain of shortness of breath continue to remain on high flow oxygen on 5 L. Continue on IV Lasix, started on azithromycin secondary to sputum production. Seen by pulmonary medicine. Recurrent hospitalization prognosis remains guarded initiated on Mucinex as well * 08/28/2023: Patient seen and evaluated bedside, patient states breathing has improved, CBC reviewed hemoglobin 9.4, WBC 7.7, serum chemistry showed creatinine 1.95, potassium of 4.3. Continue patient on IV Lasix CRP around 3 we will follow-up on N-terminal proBNP for tomorrow. 07/29/2023 This is a pleasant 78 years old female with past medical history of multiple medical problems including COPD and chronic hypoxic respiratory failures on 3 L oxygen at home. She was also states on BiPAP machine at home. Presents because of dyspnea and cough 3 days and was hypoxic at 85% and for later oxygen. At home she uses 3 L. This morning she is awake alert, she still have shortness of breath while on BiPAP. Still has limited air entry. She is To THE MEDROL 60 MG SHE HAS LITTLE DIARRHEA BUT C. DIFF IS NEGATIVE. IMODIUM WHEN NECESSARY IS ORDERED. She is on home dose of eliquis as she has history of A. fib Objective - Vital Signs Vital signs: Vital Signs Temp 97.6 F 08/28/23 23:19 Pulse 70 08/29/23 04:03 Resp 20 08/29/23 04:03 BP 111/75 08/29/23 04:03 Pulse Ox 97 08/29/23 04:03 FiO2 40 08/29/23 04:03 Intake & Output 08/28/23 08/29/23 08/29/23 18:59 06:59 18:59 Intake Total 540 Output Total 550 Balance 540 -550 Weight 78 kg 78.5 kg Intake: Oral 540 Output: Urine 550 Other: Voiding Method Bedside Commode Bedside Commode Diaper Diaper External Catheter External Catheter # Voids 1 # Bowel Movements 1 - Exam GENERAL: The patient is alert and oriented x3, not in any acute distress. Well developed, well nourished. HEENT: Pupils are round and equally reacting to light. EOMI. No scleral icterus. No conjunctival pallor. Normocephalic, atraumatic. No pharyngeal erythema. No th yromegaly. CARDIOVASCULAR: S1 and S2 present. No murmurs, rubs, or gallops. -PULMONARY: Chest is clear to auscultation, bilateral expiratory wheezing , no crackles. ABDOMEN: Soft, nontender, nondistended, normoactive bowel sounds. No palpable organomegaly. MUSCULOSKELETAL: No joint swelling or deformity. EXTREMITIES: No cyanosis, clubbing, or pedal edema. NEUROLOGICAL: Gross neurological examination did not reveal any focal deficits. SKIN: No rashes. no petechiae. - Labs CBC & Chem 7: 08/28/23 07:34 08/28/23 07:34 Labs: Abnormal Lab Results - Last 24 Hours (Table) 08/28/23 08/28/23 08/28/23 Range/Units 07:34 07:34 11:50 RBC 3.28 L (3.80-5.40) m/uL Hgb 9.4 L (11.4-16.0) gm/dL Hct 31.2 L (34.0-46.0) % MCHC 30.1 L (31.0-37.0) g/dL RDW 16.6 H (11.5-15.5) % Chloride 108 H (98-107) mmol/L BUN 58 H (7-17) mg/dL Creatinine 1.95 H (0.52-1.04) mg/dL Glucose 133 H (74-99) mg/dL POC Glucose (mg/dL) 147 H (70-110) mg/dL C-Reactive Protein 3.0 H (<1.0) mg/dL 08/28/23 08/28/23 08/29/23 Range/Units 16:37 19:47 06:01 RBC (3.80-5.40) m/uL Hgb (11.4-16.0) gm/dL Hct (34.0-46.0) % MCHC (31.0-37.0) g/dL RDW (11.5-15.5) % Chloride (98-107) mmol/L BUN (7-17) mg/dL Creatinine (0.52-1.04) mg/dL Glucose (74-99) mg/dL POC Glucose (mg/dL) 228 H 224 H 167 H (70-110) mg/dL C-Reactive Protein (<1.0) mg/dL Assessment and Plan Assessment: Exacerbation Acute on chronic CHF with ejection fraction 35% Acute on chronic hypoxic respiratory failure Reactive diarrhea Chronic anemia Chronic kidney disease stage III History of GERD Plan: continue with IV Solu-Medrol 60 mg Continue with oral Lasix 40 mg twice daily Cardiology and pulmonary consult Continue with her dose of oxygen and BiPAP when necessary Labs and medication were reviewed.. Continue same treatment. Continue with symptomatic treatment. Resume home medication. Monitor labs and vitals. DVT and GI prophylaxis. Further recommendations as per clinical course of the patient DVT prophylaxis: eliquis GI Prophylaxis: Ppi PT/OT: Pending Prognosis is guarded
--- NOTE | 2023-08-29 11:07 | P.PN ---
Subjective Progress Note Date: 08/29/23 78-year-old female seen in the emergency department, on August 26. She presented to the ER, on August 25, complaining of shortness of breath. The patient had been having shortness of breath for couple days prior to admission. In addition, he had a persistent cough, and lower extremity edema. The patient was evaluated, and was found to have CHF. The patient was initially placed on BiPAP, with settings of 16/5 and 40%. When I saw her in the emergency department, she was in room #5, and was on 4 L by nasal cannula. The patient was not getting any IV fluids. She is feeling a bit better. Her past medical history is positive for atrial fibrillation, asthma, breast cancer, heart failure, COPD, GERD, arthritis, and gout. The patient has had a pacemaker implanted as well. She was a former smoker in the past. White count 8.7, hemoglobin 11, hematocrit 37.3, and platelet count was 197,000. PT 12.6, INR 1.2, PTT is 31. Sodium 143, potassium 4.4, chlorides 106, CO2 31, BUN 39, creatinine 1.66. Her troponins were 0.053, 0.042, and 0.041. Her N-terminal proBNP was 16,700. She tested negative for influenza, RSV, and coronavirus. Chest x-ray showed the pacemaker, cardiomegaly, cephalization, bilateral pleural effusions. Progress note dated August 27, 2023. 78-year-old female seen in the emergency department, on August 26. The patient came into the ER on 25 August, complaining of shortness of breath. The patient was found to have congestive heart failure. The patient was placed on BiPAP. She is currently on 16/5 and 40%. She is not receiving any IV fluids. The patient is feeling better. White count is 9.5, hemoglobin 10.1, hematocrit 33.4, and a platelet count of 189,000. Sodium 142, potassium 4.5, chlorides 108, CO2 27, BUN 53, and creatinine 1.86. Glucose is 124. N-terminal proBNP was 18,100. Microbiology was pending are negative. No recent chest x-ray. On today's evaluation of 08/28/2023, I am seeing the patient for a follow-up. The patient is a 78-year-old female was hospitalized for worsening shortness of breath. The patient had also some increased cough and congestion and wheezing. She had increased edema lower extremities bilaterally. The patient was supported with a BiPAP at a pressure of 16 over 5 cm of water with an FiO2 of 40%. The patient is currently taken off the BiPAP and she is currently on 5 L of oxygen by nasal cannula. She is oxygen dependent at 3 L. Note that she has history of COPD and she has been maintained on Trelegy Ellipta on outpatient basis. She has acid reflux, osteoarthritis, gout, history of breast cancer, chronic A-fib and the patient has been on anticoagulation with Eliquis on outpatient basis. The labs from today shows a WBC count of 7.7, hemoglobin 10.4, BUN is a 58 with a catheter 1.9 and his sodium level is at142. As far as the renal function, the patient has chronic renal disease, stage III. The viral screen was negative.Her previous echocardiogram that was done on 06/26/2023 showed impairment of LV function with an ejection fraction of 35 to 40%. Moderate MR, severe TR, severe pulm hypertension. On 08/29/2023, the patient is awake and alert and communicating. She is off the BiPAP. She is still bronchospastic and wheezy. She is on a combination of bronchodilators and steroids. Patient is also on Lasix 40 mg p.o. twice a day. She is on oxygen at 3 L/min nasal cannula.No other specific complaints. Awaiting labs from today. Yesterday's labs showed a creatinine of 1.95 cons istent with chronic kidney disease. The patient's echocardiogram on 06/26/2023 showed impairment of LV function with an ejection fraction of 35 to 40% along with moderate MR and severe tricuspid regurgitation. Objective - Vital Signs Vital signs: Vital Signs Temp 97.6 F 08/28/23 23:19 Pulse 72 08/29/23 08:46 Resp 20 08/29/23 04:03 BP 111/75 08/29/23 04:03 Pulse Ox 97 08/29/23 04:03 FiO2 40 08/29/23 04:03 Intake & Output 08/28/23 08/29/23 08/29/23 18:59 06:59 18:59 Intake Total 540 Output Total 550 Balance 540 -550 Weight 78 kg 78.5 kg Intake: Oral 540 Output: Urine 550 Other: Voiding Method Bedside Commode Bedside Commode Diaper Diaper External Catheter External Catheter # Voids 1 # Bowel Movements 1 - Exam Mild dyspnea, oriented 3. The patient was taken off the BiPAP and currently sh abebe is on 5 L of oxygen by nasal cannula. She is awake and alert and communicating. HEENT examination is grossly unremarkable. Neck supple. Full range of motion. No adenopathy thyromegaly or neck vein distention. Cardiovascular examination reveals regular rhythm rate. S1-S2 normal. No S3 or S4. A soft systolic murmur is noted. Heart sounds are distant. Lungs reveal basilar crackles. Extensive bruising noted on the lung chong bilaterally. Diminished breath sounds bilaterally. Abdomen soft with bowel sounds. No masses or tenderness. Extremities are intact. No cyanosis or clubbing. 1+ pitting edema. Skin is without rash or lesion. Neurologic examination is brief but nonfocal. - Labs CBC & Chem 7: 08/28/23 07:34 08/28/23 07:34 Labs: Abnormal Lab Results - Last 24 Hours (Table) 08/28/23 08/28/23 08/28/23 Range/Units 07:34 11:50 16:37 Chloride 108 H (98-107) mmol/L BUN 58 H (7-17) mg/dL Creatinine 1.95 H (0.52-1.04) mg/dL Glucose 133 H (74-99) mg/dL POC Glucose (mg/dL) 147 H 228 H (70-110) mg/dL C-Reactive Protein 3.0 H (<1.0) mg/dL 08/28/23 08/29/23 Range/Units 19:47 06:01 Chloride (98-107) mmol/L BUN (7-17) mg/dL Creatinine (0.52-1.04) mg/dL Glucose (74-99) mg/dL POC Glucose (mg/dL) 224 H 167 H (70-110) mg/dL C-Reactive Protein (<1.0) mg/dL Assessment and Plan Plan: Acute hypoxemic respiratory failure secondary to systolic CHF/COPD exacerbation. The patient remains actively bronchospastic and wheezy on today's evaluation. Chest x-ray was showing cardiomegaly/pulmonary vessel congestion. Currently on 3 L of oxygen by nasal cannula, remains bronchospastic and wheezy Chronic hypoxic respiratory failure maintained on oxygen at 3 L at home Acute exacerbation of chronic COPD Severe COPD and the patient has limited on trilogy looked on outpatient basis in addition to O2. She is an ex-smoker and she quit smoking several years back. History of atrial fibrillation, status post pacemaker implantation. The patient is maintained on long-term anticoagulation with Eliquis Systolic heart failure with ejection fraction of 35 to 40% and secondary pulmonary hypertension History of severe pulmonary hypertension. History of valvular heart disease. The patient has moderate degree of mitral regurgitation and severe tricuspid regurgitation and severe pulm hypertension. History of COPD/asthma. Chronic stage III kidney disease History of breast cancer, with previous lumpectomy on the right. Chronic hypoxemic respiratory failure, on home O2. Gastroesophageal reflux disease. History of gout. Prior history of tobacco use. History of depression. Plan: May continue utilizing the BiPAP on and off during the day and at nighttime. For now, the patient is on 3 L of oxygen by nasal cannula Continue bronchodilators Continue Solu-Medrol and changed the dose up to 60 mg every 6 hours IV, this will be continued as the patient remains bronchospastic and wheezy Continue Lasix orally 40 mg p.o. twice a day Continue bronchodilators Monitor electrolytes, awaiting labs from today Will continue to follow
--- NOTE | 2023-08-29 11:22 | P.PN ---
Subjective HISTORY OF PRESENT ILLNESS: Patient is a pleasant 78-year-old female with significant past medical history of atrial fibrillation, asthma, breast cancer, heart failure, COPD, GERD, arthritis, pacemaker, former smoker who presents for worsening shortness of breath and cough. She does follow with Dr. Benitez in the office. She states over the past 3 to 4 days she has had worsening of her shortness of breath and cough. Denies any fevers, reports chills. She denies any chest pain but does feel chest tightness with coughing. Denies any dizziness or syncope. She was taking her medications as prescribed at home. She was recently admitted in June 2023 with CHF exacerbation. Echo was done at that time 06/26/2023 with a EF 35-40%, elevated RVSP 51, moderate mitral regurgitation, severe tricuspid regurgitation, mildmoderate aortic regurgitation. Labs reviewed today: Hemoglobin 9.6, potassium 4.1, creatinine 1.57, troponin 0.053, 0.042, 0.041, proBNP 16,700. Of note her troponins appear to be chronically elevated. Pulmonology has been consulted. She is currently on IV diuretics. 08/27 Patient is seen today in follow-up. Blood pressure 109/70, heart rate in the 70s, pulse ox 93% on 6 L nasal cannula. Telemetry is ventricular paced rhythm. Patient has been maintained on IV Lasix 40 mg every 12 hours. Patient is also on IV Solu-Medrol and followed by pulmonary medicine. Repeat blood work reveals WBC 9.5, hemoglobin 10.1, platelet count 189. Sodium 142, potassium 4.5, BUN 53 creatinine 1.86. BNP 18,100. Patient complains of significant cough and Tessalon Perles will be added. Patient continues to have wheezing. August 28, 2023 Patient examined this morning at the bedside. Patient currently denies chest pain or pressure. She denies shortness of breath. She remains on IV Lasix 40 mg every 12 hours. Patient's creatinine today worsened at 1.95. August 29, 2023 Patient examined this morning at the bedside. Patient denies chest pain or pressure. She continues to report shortness of breath and feels as though her breathing is worsened today compared to yesterday. However she is requiring less supplemental oxygen. She has been transition to oral diuretics. She remains on IV steroids. She reports a frequent nonproductive cough. PHYSICAL EXAM: VITAL SIGNS: Reviewed. GENERAL: Well-developed in no acute distress. NECK: Supple. No JVD or thyromegaly LUNGS: Respirations even and unlabored. Lungs diminished bilaterally with expiratory wheezing. HEART: Regular rate and rhythm. S1 and S2 heard. EXTREMITIES: Normal range of motion. No clubbing or cyanosis. Peripheral pulses intact. Trace bilateral lower extremity edema ASSESSMENT: Shortness of breath Acute hypoxic respiratory failure Acute on chronic heart failure with reduced EF, 35 to 40% Acute COPD exacerbation Atrial fibrillation, paroxysmal Acute hypoxic respiratory failure secondary to combination of acute on chronic systolic heart failure, COPD, anemia Pulmonary Hypertension History of pacemaker implantation Elevated troponin, chronic Anemia, unspecified Acute on chronic kidney disease PLAN: Continue current cardiac medications Continue oral Lasix Continue to monitor kidney function. Awaiting labs from this morning. Continue IV steroids per pulmonary medicine Obtain 2 view chest x-ray today Further recommendations pending patient course Nurse practitioner note has been reviewed by physician. Signing provider agrees with the documented findings, assessment, and plan of care documented by SCOUT SNIPER as a scribe. Objective - Vital Signs Vital signs: Vital Signs Temp 97.6 F 08/29/23 08:51 Pulse 96 08/29/23 08:51 Resp 16 08/29/23 08:51 BP 113/68 08/29/23 08:51 Pulse Ox 92 L 08/29/23 08:51 FiO2 40 08/29/23 04:03 Intake & Output 08/28/23 08/29/23 08/29/23 18:59 06:59 18:59 Intake Total 540 120 Output Total 550 Balance 540 -550 120 Weight 78 kg 78.5 kg Intake: Oral 540 120 Output: Urine 550 Other: Voiding Method Bedside Commode Bedside Commode Bedside Commode Diaper Diaper Diaper External Catheter External Catheter External Catheter # Voids 1 # Bowel Movements 1 - Labs CBC & Chem 7: 08/28/23 07:34 08/28/23 07:34 Labs: Abnormal Lab Results - Last 24 Hours (Table) 08/28/23 08/28/23 08/28/23 Range/Units 11:50 16:37 19:47 POC Glucose (mg/dL) 147 H 228 H 224 H (70-110) mg/dL 08/29/23 Range/Units 06:01 POC Glucose (mg/dL) 167 H (70-110) mg/dL
[2023-08-29 11:36] LABS: Glucose,Whole Blood 206 mg/dL (70-110)
[2023-08-29 11:59] LABS: Anisocytosis Slight; HCT 36.3 % (34.0-46.0); HGB 10.7 gm/dL (11.4-16.0); Hypochromasia Marked; MCH 28.9 pg (25.0-35.0); MCHC 29.6 g/dL (31.0-37.0); MCV 97.6 fL (80.0-100.0); Macrocytosis Slight; Mean Platelet Volume 9.9; Platelet Count 181 k/uL (150-450); RBC 3.72 m/uL (3.80-5.40); RDW 16.6 % (11.5-15.5)
[2023-08-29 12:20] LABS: African American GFR (CKD) 24 (>60 ml/min/1.73 sqM); Anion Gap 8 mmol/L; Blood Urea Nitrogen 66 mg/dL (7-17); Calcium 9.1 mg/dL (8.4-10.2); Carbon Dioxide 28 mmol/L (22-30); Chloride 105 mmol/L (98-107); Glucose 210 mg/dL (74-99); NT-Pro-B-Type Natriuretic Pept 25400 pg/mL; Non-African American GFR(CKD) 21 (>60 ml/min/1.73 sqM); Potassium 4.7 mmol/L (3.5-5.1); Sodium 141 mmol/L (137-145)
[2023-08-29 16:39] LABS: Glucose,Whole Blood 330 mg/dL (70-110)
--- NOTE | 2023-08-29 17:20 | XR ---
EXAMINATION TYPE: XR chest 2V DATE OF EXAM: 08/29/2023 COMPARISON: 08/25/2023 HISTORY: Shortness of breath TECHNIQUE: Frontal and lateral views of the chest are obtained. FINDINGS: Scattered senescent parenchymal changes noted. Hyperinflation compatible with COPD. No evidence for infiltrate. Stable cardiomegaly with strandy atelectasis or parenchymal scarring. Mediastinal structures are stable and grossly unremarkable. No evidence for hilar prominence. Degenerative changes dorsal spine. IMPRESSION: 1. No evidence for acute pulmonary disease.
[2023-08-29] MEDS: IPRATROPIUM-ALBUTEROL 3 ML NEB INHALATION PRN (17:59)
[2023-08-29 20:35] LABS: Glucose,Whole Blood 333 mg/dL (70-110)
[2023-08-29] MEDS: FORMOTEROL FUMARATE 20 MCG/2 ML NEBU INHALATION SCH (21:18)
[2023-08-29] MEDS: BUDESONIDE 1 MG/2 ML NEBU INHALATION SCH (21:19)
[2023-08-29] MEDS: INSULIN ASPART (NovoLOG) 100 UNIT/ML VIAL SQ SCH (21:47)
[2023-08-30 06:16] LABS: Glucose,Whole Blood 139 mg/dL (70-110)
--- NOTE | 2023-08-30 08:42 | P.PN ---
Subjective * 78-year-old patient with past medical history significant for chronic congestive heart failure systolic dysfunction, history of atrial fibrillation, s/p pacemaker in place, chronic kidney disease, history of breast cancer s/p lumpectomy, chronic hypoxic respiratory failure on home oxygen 3 L at baseline history of obstructive lung disease presents to the emergency department with complaints of difficulty in breathing. Patient was admitted early in June with similar presentation and was noted to have CHF exacerbation. Patient states she had significant shortness of breath cough, significant anxiety. * At time of presentation workup initiated in ER included serum chemistry which showed sodium 143 potassium 4.4, dioxide 31 BUN 39 creatinine 1.66, CBC showed WBC 8.7 hemoglobin 11 hematocrit 37 platelet count of 197 chest x-ray was obt ained which showed significant amount of bilateral opacities and effusion[place] [address], serial troponins were obtained which was 0.053, 0.042, 0.041 INR was 1.2. Patient tested negative for influenza COVID and RSV. At the time of presentation in ER patient was noted to be in distress and was placed on BiPAP gradually weaned down to nasal cannula * Patient was admitted to medical floor with consultation from cardiology and pulmonary medicine * 08/27/23: Patient seen and evaluated bedside, patient does complain of shortness of breath continue to remain on high flow oxygen on 5 L. Continue on IV Lasix, started on azithromycin secondary to sputum production. Seen by pulmonary medicine. Recurrent hospitalization prognosis remains guarded initiated on Mucinex as well * 08/28/2023: Patient seen and evaluated bedside, patient states breathing has improved, CBC reviewed hemoglobin 9.4, WBC 7.7, serum chemistry showed creatinine 1.95, potassium of 4.3. Continue patient on IV Lasix CRP around 3 we will follow-up on N-terminal proBNP for tomorrow. 07/29/2023 This is a pleasant 78 years old female with past medical history of multiple medical problems including COPD and chronic hypoxic respiratory failures on 3 L oxygen at home. She was also states on BiPAP machine at home. Presents because of dyspnea and cough 3 days and was hypoxic at 85% and for later oxygen. At home she uses 3 L. This morning she is awake alert, she still have shortness of breath while on BiPAP. Still has limited air entry. She is To THE MEDROL 60 MG SHE HAS LITTLE DIARRHEA BUT C. DIFF IS NEGATIVE. IMODIUM WHEN NECESSARY IS ORDERED. She is on home dose of eliquis as she has history of A. fib 08/30/2023 Patient still feeling short of breath although she is somewhat better than ye sterday, she still using the BiPAP machine, patient has been using her CPAP machine at night for the last 9 days after she left murmur and before she comes to this facility. She still have significant coughing. No chest pain She denies any other symptom She has 1+ bilateral pitting leg edema, wheezing and decrease and entry. She is currently on oral Lasix 40 mg twice daily, we added fluid restriction 1200 mL per day Also she is on ivn Medrol 60 mg Objective - Vital Signs Vital signs: Vital Signs Temp 97.4 F L 08/30/23 08:00 Pulse 72 08/30/23 08:22 Resp 22 08/30/23 08:00 BP 102/56 08/30/23 08:00 Pulse Ox 91 L 08/30/23 08:00 FiO2 40 08/30/23 04:22 Intake & Output 08/29/23 08/30/23 08/30/23 18:59 06:59 18:59 Intake Total 360 180 Output Total 150 Balance 210 180 Weight 80.5 kg Intake: Oral 360 180 Output: Urine 150 Other: Voiding Method Bedside Commode Bedside Commode Diaper Diaper External Catheter External Catheter # Bowel Movements 1 - Exam GENERAL: The patient is alert and oriented x3, not in any acute distress. Well developed, well nourished. HEENT: Pupils are round and equally reacting to light. EOMI. No scleral icterus. No conjunctival pallor. Normocephalic, atraumatic. No pharyngeal erythema. No thyromegaly. CARDIOVASCULAR: S1 and S2 present. No murmurs, rubs, or gallops. -PULMONARY: Chest is clear to auscultation, bilateral expiratory wheezing , no crackles. ABDOMEN: Soft, nontender, nondistended, normoactive bowel sounds. No palpable organomegaly. MUSCULOSKELETAL: No joint swelling or deformity. EXTREMITIES: No cyanosis, clubbing, or pedal edema. NEUROLOGICAL: Gross neurological examination did not reveal any focal deficits. SKIN: No rashes. no petechiae. - Labs CBC & Chem 7: 08/29/23 11:32 08/29/23 11:32 Labs: Abnormal Lab Results - Last 24 Hours (Table) 08/29/23 08/29/23 08/29/23 Range/Units 11:32 11:32 11:35 RBC 3.72 L (3.80-5.40) m/uL Hgb 10.7 L (11.4-16.0) gm/dL MCHC 29.6 L (31.0-37.0) g/dL RDW 16.6 H (11.5-15.5) % BUN 66 H (7-17) mg/dL Creatinine 2.22 H (0.52-1.04) mg/dL Glucose 210 H (74-99) mg/dL POC Glucose (mg/dL) 206 H (70-110) mg/dL 08/29/23 08/29/23 08/30/23 Range/Units 16:37 20:23 06:04 RBC (3.80-5.40) m/uL Hgb (11.4-16.0) gm/dL MCHC (31.0-37.0) g/dL RDW (11.5-15.5) % BUN (7-17) mg/dL Creatinine (0.52-1.04) mg/dL Glucose (74-99) mg/dL POC Glucose (mg/dL) 330 H 333 H 139 H (70-110) mg/dL Assessment and Plan Assessment: Exacerbation Acute on chronic CHF with ejection fraction 35% Acute on chronic hypoxic respiratory failure Reactive diarrhea Chronic anemia Chronic kidney disease stage III History of GERD Plan: continue with IV Solu-Medrol 60 mg Continue with oral Lasix 40 mg twice daily. Fluid restriction 1200 mL per day Cardiology and pulmonary consult Continue with her dose of oxygen and BiPAP when necessary Labs and medication were reviewed.. Continue same treatment. Continue with symptomatic treatment. Resume home medication. Monitor labs and vitals. DVT and GI prophylaxis. Further recommendations as per clinical course of the patient DVT prophylaxis: eliquis GI Prophylaxis: Ppi PT/OT: Pending Prognosis is guarded
[2023-08-30 10:24] LABS: African American GFR (CKD) 25 (>60 ml/min/1.73 sqM); Anion Gap 7 mmol/L; Blood Urea Nitrogen 72 mg/dL (7-17); Calcium 8.9 mg/dL (8.4-10.2); Carbon Dioxide 25 mmol/L (22-30); Chloride 107 mmol/L (98-107); Glucose 200 mg/dL (74-99); Non-African American GFR(CKD) 22 (>60 ml/min/1.73 sqM); Potassium 5.1 mmol/L (3.5-5.1); Sodium 139 mmol/L (137-145)
--- NOTE | 2023-08-30 11:32 | P.PN ---
Subjective HISTORY OF PRESENT ILLNESS: Patient is a pleasant 78-year-old female with significant past medical history of atrial fibrillation, asthma, breast cancer, heart failure, COPD, GERD, arthritis, pacemaker, former smoker who presents for worsening shortness of breath and cough. She does follow with Dr. Benitez in the office. She states over the past 3 to 4 days she has had worsening of her shortness of breath and cough. Denies any fevers, reports chills. She denies any chest pain but does feel chest tightness with coughing. Denies any dizziness or syncope. She was taking her medications as prescribed at home. She was recently admitted in June 2023 with CHF exacerbation. Echo was done at that time 06/26/2023 with a EF 35-40%, elevated RVSP 51, moderate mitral regurgitation, severe tricuspid regurgitation, mildmoderate aortic regurgitation. Labs reviewed today: Hemoglobin 9.6, potassium 4.1, creatinine 1.57, troponin 0.053, 0.042, 0.041, proBNP 16,700. Of note her troponins appear to be chronically elevated. Pulmonology has been consulted. She is currently on IV diuretics. 08/27 Patient is seen today in follow-up. Blood pressure 109/70, heart rate in the 70s, pulse ox 93% on 6 L nasal cannula. Telemetry is ventricular paced rhythm. Patient has been maintained on IV Lasix 40 mg every 12 hours. Patient is also on IV Solu-Medrol and followed by pulmonary medicine. Repeat blood work reveals WBC 9.5, hemoglobin 10.1, platelet count 189. Sodium 142, potassium 4.5, BUN 53 creatinine 1.86. BNP 18,100. Patient complains of significant cough and Tessalon Perles will be added. Patient continues to have wheezing. August 28, 2023 Patient examined this morning at the bedside. Patient currently denies chest pain or pressure. She denies shortness of breath. She remains on IV Lasix 40 mg every 12 hours. Patient's creatinine today worsened at 1.95. August 29, 2023 Patient examined this morning at the bedside. Patient denies chest pain or pressure. She continues to report shortness of breath and feels as though her breathing is worsened today compared to yesterday. However she is requiring less supplemental oxygen. She has been transition to oral diuretics. She remains on IV steroids. She reports a frequent nonproductive cough. August 30, 2023 Patient examined this morning at the bedside. Patient denies chest pain or pressure. She reports improvement in her shortness of breath. She remains on oral diuretics. Creatinine today remained stable at 2.14. Chest x-ray completed yesterday is negative for acute pulmonary process. PHYSICAL EXAM: VITAL SIGNS: Reviewed. GENERAL: Well-developed in no acute distress. NECK: Supple. No JVD or thyromegaly LUNGS: Respirations even and unlabored. Lungs diminished bilaterally with expiratory wheezing. HEART: Regular rate and rhythm. S1 and S2 heard. EXTREMITIES: Normal range of motion. No clubbing or cyanosis. Peripheral pulses intact. Trace bilateral lower extremity edema ASSESSMENT: Shortness of breath Acute hypoxic respiratory failure Acute on chronic heart failure with reduced EF, 35 to 40% Acute COPD exacerbation Atrial fibrillation, paroxysmal Acute hypoxic respiratory failure secondary to combination of acute on chronic s ystolic heart failure, COPD, anemia Pulmonary Hypertension History of pacemaker implantation Elevated troponin, chronic Anemia, unspecified Acute on chronic kidney disease PLAN: Continue current cardiac medications Continue oral Lasix Continue to monitor kidney function. Awaiting labs from this morning. Continue IV steroids per pulmonary medicine Discontinue potassium supplementation as patient's potassium has been increasing. Potassium 5.1 today. Further recommendations pending patient course Nurse practitioner note has been reviewed by physician. Signing provider agrees with the documented findings, assessment, and plan of care documented by MOLDER MACHINE as a scribe. Objective - Vital Signs Vital signs: Vital Signs Temp 97.5 F L 08/30/23 11:21 Pulse 72 08/30/23 11:21 Resp 20 08/30/23 11:21 BP 114/68 08/30/23 11:21 Pulse Ox 94 L 08/30/23 11:21 FiO2 40 08/30/23 04:22 Intake & Output 08/29/23 08/30/23 08/30/23 18:59 06:59 18:59 Intake Total 360 180 Output Total 150 Balance 210 180 Weight 80.5 kg Intake: Oral 360 180 Output: Urine 150 Other: Voiding Method Bedside Commode Bedside Commode External Catheter Diaper Diaper External Catheter External Catheter # Bowel Movements 1 - Labs CBC & Chem 7: 08/29/23 11:32 08/30/23 09:39 Labs: Abnormal Lab Results - Last 24 Hours (Table) 08/29/23 08/29/23 08/29/23 Range/Units 11:32 11:32 11:35 RBC 3.72 L (3.80-5.40) m/uL Hgb 10.7 L (11.4-16.0) gm/dL MCHC 29.6 L (31.0-37.0) g/dL RDW 16.6 H (11.5-15.5) % BUN 66 H (7-17) mg/dL Creatinine 2.22 H (0.52-1.04) mg/dL Glucose 210 H (74-99) mg/dL POC Glucose (mg/dL) 206 H (70-110) mg/dL 08/29/23 08/29/23 08/30/23 Range/Units 16:37 20:23 06:04 RBC (3.80-5.40) m/uL Hgb (11.4-16.0) gm/dL MCHC (31.0-37.0) g/dL RDW (11.5-15.5) % BUN (7-17) mg/dL Creatinine (0.52-1.04) mg/dL Glucose (74-99) mg/dL POC Glucose (mg/dL) 330 H 333 H 139 H (70-110) mg/dL 08/30/23 Range/Units 09:39 RBC (3.80-5.40) m/uL Hgb (11.4-16.0) gm/dL MCHC (31.0-37.0) g/dL RDW (11.5-15.5) % BUN 72 H (7-17) mg/dL Creatinine 2.14 H (0.52-1.04) mg/dL Glucose 200 H (74-99) mg/dL POC Glucose (mg/dL) (70-110) mg/dL
[2023-08-30 11:52] LABS: Glucose,Whole Blood 196 mg/dL (70-110)
--- NOTE | 2023-08-30 12:18 | P.PN ---
Subjective Progress Note Date: 08/30/23 78-year-old female seen in the emergency department, on August 26. She presented to the ER, on August 25, complaining of shortness of breath. The patient had been having shortness of breath for couple days prior to admission. In addition, he had a persistent cough, and lower extremity edema. The patient was evaluated, and was found to have CHF. The patient was initially placed on BiPAP, with settings of 16/5 and 40%. When I saw her in the emergency department, she was in room #5, and was on 4 L by nasal cannula. The patient was not getting any IV fluids. She is feeling a bit better. Her past medical history is positive for atrial fibrillation, asthma, breast cancer, heart failure, COPD, GERD, arthritis, and gout. The patient has had a pacemaker implanted as well. She was a former smoker in the past. White count 8.7, hemoglobin 11, hematocrit 37.3, and platelet count was 197,000. PT 12.6, INR 1.2, PTT is 31. Sodium 143, potassium 4.4, chlorides 106, CO2 31, BUN 39, creatinine 1.66. Her troponins were 0.053, 0.042, and 0.041. Her N-terminal proBNP was 16,700. She tested negative for influenza, RSV, and coronavirus. Chest x-ray showed the pacemaker, cardiomegaly, cephalization, bilateral pleural effusions. Progress note dated August 27, 2023. 78-year-old female seen in the emergency department, on August 26. The patient came into the ER on 25 August, complaining of shortness of breath. The patient was found to have congestive heart failure. The patient was placed on BiPAP. She is currently on 16/5 and 40%. She is not receiving any IV fluids. The patient is feeling better. White count is 9.5, hemoglobin 10.1, hematocrit 33.4, and a platelet count of 189,000. Sodium 142, potassium 4.5, chlorides 108, CO2 27, BUN 53, and creatinine 1.86. Glucose is 124. N-terminal proBNP was 18,100. Microbiology was pending are negative. No recent chest x-ray. On today's evaluation of 08/28/2023, I am seeing the patient for a follow-up. The patient is a 78-year-old female was hospitalized for worsening shortness of breath. The patient had also some increased cough and congestion and wheezing. She had increased edema lower extremities bilaterally. The patient was supported with a BiPAP at a pressure of 16 over 5 cm of water with an FiO2 of 40%. The patient is currently taken off the BiPAP and she is currently on 5 L of oxygen by nasal cannula. She is oxygen dependent at 3 L. Note that she has history of COPD and she has been maintained on Trelegy Ellipta on outpatient basis. She has acid reflux, osteoarthritis, gout, history of breast cancer, chronic A-fib and the patient has been on anticoagulation with Eliquis on outpatient basis. The labs from today shows a WBC count of 7.7, hemoglobin 10.4, BUN is a 58 with a catheter 1.9 and his sodium level is at142. As far as the renal function, the patient has chronic renal disease, stage III. The viral screen was negative.Her previous echocardiogram that was done on 06/26/2023 showed impairment of LV function with an ejection fraction of 35 to 40%. Moderate MR, severe TR, severe pulm hypertension. On 08/29/2023, the patient is awake and alert and communicating. She is off the BiPAP. She is still bronchospastic and wheezy. She is on a combination of bronchodilators and steroids. Patient is also on Lasix 40 mg p.o. twice a day. She is on oxygen at 3 L/min nasal cannula.No other specific complaints. Awaiting labs from today. Yesterday's labs showed a creatinine of 1.95 cons istent with chronic kidney disease. The patient's echocardiogram on 06/26/2023 showed impairment of LV function with an ejection fraction of 35 to 40% along with moderate MR and severe tricuspid regurgitation. On today's evaluation of 11/28/2023, the patient continues to have a barky congested cough. Seems to be less bronchospastic and wheezy compared to yesterday. Suspect underlying tracheobronchomalacia. She remains on bronchodilators. She remains on IV Solu-Medrol 60 mg IV push every 6 hours. The patient is also on Lasix 40 mg p.o. twice a day. Awake and alert and communicating. The patient's pulse ox is 94% on 40 Suboxone by nasal cannula and she is afebrile. Note that she is unable to bring up any sputum. Sodium levels at 139 with a potassium level of 5.1 with a BUN of 72 and a creatinine of 2.1The patient is known to have chronic kidney disease and the creatinine is slightly on the rise he had stable compared to yesterday and the day before. She is tolerating her diet. No chest pain. No significant edema lower extremities and the patient has been switched to oral Lasix 40 mg p.o. twice a day. Objective - Vital Signs Vital signs: Vital Signs Temp 97.4 F L 08/30/23 08:00 Pulse 68 08/30/23 08:52 Resp 22 08/30/23 08:00 BP 102/56 08/30/23 08:00 Pulse Ox 91 L 08/30/23 08:00 FiO2 40 08/30/23 04:22 Intake & Output 08/29/23 08/30/23 08/30/23 18:59 06:59 18:59 Intake Total 360 180 Output Total 150 Balance 210 180 Weight 80.5 kg Intake: Oral 360 180 Output: Urine 150 Other: Voiding Method Bedside Commode Bedside Commode Diaper Diaper External Catheter External Catheter # Bowel Movements 1 - Exam Mild dyspnea, oriented 3. The patient was taken off the BiPAP and currently she is on 4 L of oxygen by nasal cannula HEENT examination is grossly unremarkable. Neck supple. Full range of motion. No adenopathy thyromegaly or neck vein distention. Cardiovascular examination reveals regular rhythm rate. S1-S2 normal. No S3 or S4. A soft systolic murmur is noted. Heart sounds are distant. Lungs reveal basilar crackles. Extensive bruising noted on the lung chong bilaterally. Diminished breath sounds bilaterally. Abdomen soft with bowel sounds. No masses or tenderness. Extremities are intact. No cyanosis or clubbing. 1+ pitting edema. Skin is without rash or lesion. Neurologic examination is brief but nonfocal. - Labs CBC & Chem 7: 08/29/23 11:32 08/30/23 09:39 Labs: Abnormal Lab Results - Last 24 Hours (Table) 08/29/23 08/29/23 08/29/23 Range/Units 11:32 11:32 11:35 RBC 3.72 L (3.80-5.40) m/uL Hgb 10.7 L (11.4-16.0) gm/dL MCHC 29.6 L (31.0-37.0) g/dL RDW 16.6 H (11.5-15.5) % BUN 66 H (7-17) mg/dL Creatinine 2.22 H (0.52-1.04) mg/dL Glucose 210 H (74-99) mg/dL POC Glucose (mg/dL) 206 H (70-110) mg/dL 08/29/23 08/29/23 08/30/23 Range/Units 16:37 20:23 06:04 RBC (3.80-5.40) m/uL Hgb (11.4-16.0) gm/dL MCHC (31.0-37.0) g/dL RDW (11.5-15.5) % BUN (7-17) mg/dL Creatinine (0.52-1.04) mg/dL Glucose (74-99) mg/dL POC Glucose (mg/dL) 330 H 333 H 139 H (70-110) mg/dL 08/30/23 Range/Units 09:39 RBC (3.80-5.40) m/uL Hgb (11.4-16.0) gm/dL MCHC (31.0-37.0) g/dL RDW (11.5-15.5) % BUN 72 H (7-17) mg/dL Creatinine 2.14 H (0.52-1.04) mg/dL Glucose 200 H (74-99) mg/dL POC Glucose (mg/dL) (70-110) mg/dL Assessment and Plan Plan: Acute hypoxemic respiratory failure secondary to systolic CHF/COPD exacerbation. The patient remains actively bronchospastic and wheezy on today's evaluation. Chest x-ray was showing cardiomegaly/pulmonary vessel congestion. Currently on 3 L of oxygen by nasal cannula, remains bronchospastic and wheezy. The patient also has a congested cough. Unable to bring up much sputum. Her cough is somewhat barky. I suspect underlying tracheobronchomalacia. She remains on a combination of bronchodilators and steroids and this invention will be continued. On and off, she is using also the BiPAP. Chronic hypoxic respiratory failure maintained on oxygen at 3 L at home Acute exacerbation of chronic COPD Severe COPD and the patient has limited on trilogy looked on outpatient basis in addition to O2. She is an ex-smoker and she quit smoking several years back. History of atrial fibrillation, status post pacemaker implantation. The patient is maintained on long-term anticoagulation with Eliquis Systolic heart failure with ejection fraction of 35 to 40% and secondary pulmonary hypertension History of severe pulmonary hypertension. History of valvular heart disease. The patient has moderate degree of mitral regurgitation and severe tricuspid regurgitation and severe pulm hypertension. History of COPD/asthma. Chronic stage III kidney disease History of breast cancer, with previous lumpectomy on the right. Chronic hypoxemic respiratory failure, on home O2. Gastroesophageal reflux disease. History of gout. Prior history of tobacco use. History of depression. Plan: May continue utilizing the BiPAP on and off during the day and at nighttime. For now, the patient is on 3 L of oxygen by nasal cannula, continue using the BiPAP on and off during the day and continuous at nighttime. Continue bronchodilators Continue Solu-Medrol and changed the dose up to 60 mg every 6 hours IV, this will be continued as the patient remains bronchospastic and wheezy May consider bronchoscopy if there is no improvement that the patient may have underlying cervical bronchomalacia. Continue Lasix orally 40 mg p.o. twice a day Continue bronchodilators Renal function continues to be stable Will continue to follow
[2023-08-30 16:38] LABS: Glucose,Whole Blood 161 mg/dL (70-110)
[2023-08-30 20:30] LABS: Glucose,Whole Blood 218 mg/dL (70-110)
[2023-08-31 06:05] LABS: Glucose,Whole Blood 184 mg/dL (70-110)
[2023-08-31 08:31] LABS: African American GFR (CKD) 25 (>60 ml/min/1.73 sqM); Anion Gap 3 mmol/L; Blood Urea Nitrogen 73 mg/dL (7-17); Calcium 8.8 mg/dL (8.4-10.2); Carbon Dioxide 32 mmol/L (22-30); Chloride 106 mmol/L (98-107); Glucose 166 mg/dL (74-99); Non-African American GFR(CKD) 22 (>60 ml/min/1.73 sqM); Potassium 4.5 mmol/L (3.5-5.1); Sodium 141 mmol/L (137-145)
[2023-08-31 11:42] LABS: Glucose,Whole Blood 230 mg/dL (70-110)
--- NOTE | 2023-08-31 12:25 | P.PN ---
Subjective HISTORY OF PRESENT ILLNESS: Patient is a pleasant 78-year-old female with significant past medical history of atrial fibrillation, asthma, breast cancer, heart failure, COPD, GERD, arthritis, pacemaker, former smoker who presents for worsening shortness of breath and cough. She does follow with Dr. Benitez in the office. She states over the past 3 to 4 days she has had worsening of her shortness of breath and cough. Denies any fevers, reports chills. She denies any chest pain but does feel chest tightness with coughing. Denies any dizziness or syncope. She was taking her medications as prescribed at home. She was recently admitted in June 2023 with CHF exacerbation. Echo was done at that time 06/26/2023 with a EF 35-40%, elevated RVSP 51, moderate mitral regurgitation, severe tricuspid regurgitation, mildmoderate aortic regurgitation. Labs reviewed today: Hemoglobin 9.6, potassium 4.1, creatinine 1.57, troponin 0.053, 0.042, 0.041, proBNP 16,700. Of note her troponins appear to be chronically elevated. Pulmonology has been consulted. She is currently on IV diuretics. 08/27 Patient is seen today in follow-up. Blood pressure 109/70, heart rate in the 70s, pulse ox 93% on 6 L nasal cannula. Telemetry is ventricular paced rhythm. Patient has been maintained on IV Lasix 40 mg every 12 hours. Patient is also on IV Solu-Medrol and followed by pulmonary medicine. Repeat blood work reveals WBC 9.5, hemoglobin 10.1, platelet count 189. Sodium 142, potassium 4.5, BUN 53 creatinine 1.86. BNP 18,100. Patient complains of significant cough and Tessalon Perles will be added. Patient continues to have wheezing. August 28, 2023 Patient examined this morning at the bedside. Patient currently denies chest pain or pressure. She denies shortness of breath. She remains on IV Lasix 40 mg every 12 hours. Patient's creatinine today worsened at 1.95. August 29, 2023 Patient examined this morning at the bedside. Patient denies chest pain or pressure. She continues to report shortness of breath and feels as though her breathing is worsened today compared to yesterday. However she is requiring less supplemental oxygen. She has been transition to oral diuretics. She remains on IV steroids. She reports a frequent nonproductive cough. August 30, 2023 Patient examined this morning at the bedside. Patient denies chest pain or pressure. She reports improvement in her shortness of breath. She remains on oral diuretics. Creatinine today remained stable at 2.14. Chest x-ray completed yesterday is negative for acute pulmonary process. August 31, 2023 Patient examined this morning the bedside. She denies chest pain or pressure. She reports mild shortness of breath at the time of examination. She remains on BiPAP at the time of examination. She remains on oral diuretics. Creatinine today was 2.11. Vital signs are stable. PHYSICAL EXAM: VITAL SIGNS: Reviewed. GENERAL: Well-developed in no acute distress. NECK: Supple. No JVD or thyromegaly LUNGS: Respirations even and unlabored. Lungs diminished bilaterally with expiratory wheezing. HEART: Regular rate and rhythm. S1 and S2 heard. EXTREMITIES: Normal range of motion. No clubbing or cyanosis. Peripheral pulses intact. Trace bilateral lower extremity edema ASSESSMENT: Shortness of breath Acute hypoxic respiratory failure Acute on chronic heart failure with reduced EF, 35 to 40% Acute COPD exacerbation Atrial fibrillation, paroxysmal Acute hypoxic respiratory failure secondary to combination of acute on chronic systolic heart failure, COPD, anemia Pulmonary Hypertension History of pacemaker implantation Elevated troponin, chronic Anemia, unspecified Acute on chronic kidney disease Mild hyperkalemia, potassium supplementation discontinued PLAN: Continue current cardiac medications Continue oral Lasix Continue to monitor kidney function Continue IV steroids per pulmonary medicine Patient to undergo bronchoscopy today with pulmonary We will sign off. Please reconsult if needed Nurse practitioner note has been reviewed by physician. Signing provider agrees with the documented findings, assessment, and plan of care documented by INFORMATION LEAD as a scribe. Objective - Vital Signs Vital signs: Vital Signs Temp 97.1 F L 08/31/23 08:41 Pulse 74 08/31/23 08:51 Resp 20 08/31/23 08:51 BP 94/64 08/31/23 08:41 Pulse Ox 97 08/31/23 08:41 FiO2 40 08/31/23 11:22 Intake & Output 08/30/23 08/31/23 08/31/23 18:59 06:59 18:59 Intake Total 360 118 Balance 360 118 Weight 80 kg Intake: Oral 360 118 Other: Voiding Method External Catheter Diaper Diaper Incontinent Incontinent # Voids 1 2 # Bowel Movements 1 - Labs CBC & Chem 7: 08/29/23 11:32 08/31/23 07:26 Labs: Abnormal Lab Results - Last 24 Hours (Table) 08/30/23 08/30/23 08/31/23 Range/Units 16:31 20:27 06:02 Carbon Dioxide (22-30) mmol/L BUN (7-17) mg/dL Creatinine (0.52-1.04) mg/dL Glucose (74-99) mg/dL POC Glucose (mg/dL) 161 H 218 H 184 H (70-110) mg/dL 08/31/23 08/31/23 Range/Units 07:26 11:40 Carbon Dioxide 32 H (22-30) mmol/L BUN 73 H (7-17) mg/dL Creatinine 2.11 H (0.52-1.04) mg/dL Glucose 166 H (74-99) mg/dL POC Glucose (mg/dL) 230 H (70-110) mg/dL
--- NOTE | 2023-08-31 12:43 | P.PN ---
Subjective Progress Note Date: 08/31/23 78-year-old female seen in the emergency department, on August 26. She presented to the ER, on August 25, complaining of shortness of breath. The patient had been having shortness of breath for couple days prior to admission. In addition, he had a persistent cough, and lower extremity edema. The patient was evaluated, and was found to have CHF. The patient was initially placed on BiPAP, with settings of 16/5 and 40%. When I saw her in the emergency department, she was in room #5, and was on 4 L by nasal cannula. The patient was not getting any IV fluids. She is feeling a bit better. Her past medical history is positive for atrial fibrillation, asthma, breast cancer, heart failure, COPD, GERD, arthritis, and gout. The patient has had a pacemaker implanted as well. She was a former smoker in the past. White count 8.7, hemoglobin 11, hematocrit 37.3, and platelet count was 197,000. PT 12.6, INR 1.2, PTT is 31. Sodium 143, potassium 4.4, chlorides 106, CO2 31, BUN 39, creatinine 1.66. Her troponins were 0.053, 0.042, and 0.041. Her N-terminal proBNP was 16,700. She tested negative for influenza, RSV, and coronavirus. Chest x-ray showed the pacemaker, cardiomegaly, cephalization, bilateral pleural effusions. Progress note dated August 27, 2023. 78-year-old female seen in the emergency department, on August 26. The patient came into the ER on 25 August, complaining of shortness of breath. The patient was found to have congestive heart failure. The patient was placed on BiPAP. She is currently on 16/5 and 40%. She is not receiving any IV fluids. The patient is feeling better. White count is 9.5, hemoglobin 10.1, hematocrit 33.4, and a platelet count of 189,000. Sodium 142, potassium 4.5, chlorides 108, CO2 27, BUN 53, and creatinine 1.86. Glucose is 124. N-terminal proBNP was 18,100. Microbiology was pending are negative. No recent chest x-ray. On today's evaluation of 08/28/2023, I am seeing the patient for a follow-up. The patient is a 78-year-old female was hospitalized for worsening shortness of breath. The patient had also some increased cough and congestion and wheezing. She had increased edema lower extremities bilaterally. The patient was supported with a BiPAP at a pressure of 16 over 5 cm of water with an FiO2 of 40%. The patient is currently taken off the BiPAP and she is currently on 5 L of oxygen by nasal cannula. She is oxygen dependent at 3 L. Note that she has history of COPD and she has been maintained on Trelegy Ellipta on outpatient basis. She has acid reflux, osteoarthritis, gout, history of breast cancer, chronic A-fib and the patient has been on anticoagulation with Eliquis on outpatient basis. The labs from today shows a WBC count of 7.7, hemoglobin 10.4, BUN is a 58 with a catheter 1.9 and his sodium level is at142. As far as the renal function, the patient has chronic renal disease, stage III. The viral screen was negative.Her previous echocardiogram that was done on 06/26/2023 showed impairment of LV function with an ejection fraction of 35 to 40%. Moderate MR, severe TR, severe pulm hypertension. On 08/29/2023, the patient is awake and alert and communicating. She is off the BiPAP. She is still bronchospastic and wheezy. She is on a combination of bronchodilators and steroids. Patient is also on Lasix 40 mg p.o. twice a day. She is on oxygen at 3 L/min nasal cannula.No other specific complaints. Awaiting labs from today. Yesterday's labs showed a creatinine of 1.95 cons istent with chronic kidney disease. The patient's echocardiogram on 06/26/2023 showed impairment of LV function with an ejection fraction of 35 to 40% along with moderate MR and severe tricuspid regurgitation. On today's evaluation of 11/28/2023, the patient continues to have a barky congested cough. Seems to be less bronchospastic and wheezy compared to yesterday. Suspect underlying tracheobronchomalacia. She remains on bronchodilators. She remains on IV Solu-Medrol 60 mg IV push every 6 hours. The patient is also on Lasix 40 mg p.o. twice a day. Awake and alert and communicating. The patient's pulse ox is 94% on 40 Suboxone by nasal cannula and she is afebrile. Note that she is unable to bring up any sputum. Sodium levels at 139 with a potassium level of 5.1 with a BUN of 72 and a creatinine of 2.1The patient is known to have chronic kidney disease and the creatinine is slightly on the rise he had stable compared to yesterday and the day before. She is tolerating her diet. No chest pain. No significant edema lower extremities and the patient has been switched to oral Lasix 40 mg p.o. twice a day. On today's evaluation of 08/31/2023, the patient is being seen for a follow-up. Continues to have the same problem of a vigorous cough with congestion and unable to bring up much of sputum. Based on that, I am going to bronchoscope this patient this afternoon. I suspect that the patient has an underlying tracheobronchomalacia with significant mucous retention. The patient is currently on DuoNeb updrafts. The patient remains on episode of medical 60 mg every 6 hours. She remains also on oral Lasix 40 mg twice a day. Labs from today shows a BUN of 73 with a creatinine of 2.1 as the patient's chronic kidney disease and sodium levels at 141. Meanwhile, the patient had a small portion of seated at around 7:00 this morning. Based on that, she will be kept n.p.o. and her procedure will be done after 3 PM and this will essentially include a bronchoscopy and lavage and therapeutic airway suctioning. The patient is on anticoagulation with Eliquis. No need to stop anticoagulation for now. Objective - Vital Signs Vital signs: Vital Signs Temp 97.1 F L 08/31/23 08:41 Pulse 74 08/31/23 08:51 Resp 20 08/31/23 08:51 BP 94/64 08/31/23 08:41 Pulse Ox 97 08/31/23 08:41 FiO2 40 08/31/23 04:17 Intake & Output 08/30/23 08/31/23 08/31/23 18:59 06:59 18:59 Intake Total 360 118 Balance 360 118 Weight 80 kg Intake: Oral 360 118 Other: Voiding Method External Catheter Diaper Diaper Incontinent Incontinent # Voids 1 2 - Exam Mild dyspnea, oriented 3. The patient was taken off the BiPAP and currently she is on 4 L of oxygen by nasal cannula HEENT examination is grossly unremarkable. Neck supple. Full range of motion. No adenopathy thyromegaly or neck vein distention. Cardiovascular examination reveals regular rhythm rate. S1-S2 normal. No S3 or S4. A soft systolic murmur is noted. Heart sounds are distant. Lungs reveal basilar crackles. Extensive bruising noted on the lung chong bilaterally. Diminished breath sounds bilaterally. Abdomen soft with bowel sounds. No masses or tenderness. Extremities are intact. No cyanosis or clubbing. 1+ pitting edema. Skin is without rash or lesion. Neurologic examination is brief but nonfocal. - Labs CBC & Chem 7: 08/29/23 11:32 08/31/23 07:26 Labs: Abnormal Lab Results - Last 24 Hours (Table) 08/30/23 08/30/23 08/30/23 Range/Units 09:39 11:50 16:31 Carbon Dioxide (22-30) mmol/L BUN 72 H (7-17) mg/dL Creatinine 2.14 H (0.52-1.04) mg/dL Glucose 200 H (74-99) mg/dL POC Glucose (mg/dL) 196 H 161 H (70-110) mg/dL 08/30/23 08/31/23 08/31/23 Range/Units 20:27 06:02 07:26 Carbon Dioxide 32 H (22-30) mmol/L BUN 73 H (7-17) mg/dL Creatinine 2.11 H (0.52-1.04) mg/dL Glucose 166 H (74-99) mg/dL POC Glucose (mg/dL) 218 H 184 H (70-110) mg/dL Assessment and Plan Plan: Acute hypoxemic respiratory failure secondary to systolic CHF/COPD exacerbation. The patient remains actively bronchospastic and wheezy on today's evaluation. Chest x-ray was showing cardiomegaly/pulmonary vessel congestion. Currently on 3 L of oxygen by nasal cannula, remains bronchospastic and wheezy. The patient also has a congested cough. Unable to bring up much sputum. Her cough is somewhat barky. I suspect underlying tracheobronchomalacia. She remains on a combination of bronchodilators and steroids and this invention will be continued. On and off, she is using also the BiPAP. Chronic hypoxic respiratory failure maintained on oxygen at 3 L at home Acute exacerbation of chronic COPD Severe COPD and the patient has limited on trilogy looked on outpatient basis in addition to O2. She is an ex-smoker and she quit smoking several years back. History of atrial fibrillation, status post pacemaker implantation. The patient is maintained on long-term anticoagulation with Eliquis Systolic heart failure with ejection fraction of 35 to 40% and secondary pulmonary hypertension History of severe pulmonary hypertension. History of valvular heart disease. The patient has moderate degree of mitral regurgitation and severe tricuspid regurgitation and severe pulm hypertension. History of COPD/asthma. Chronic stage III kidney disease History of breast cancer, with previous lumpectomy on the right. Chronic hypoxemic respiratory failure, on home O2. Gastroesophageal reflux disease. History of gout. Prior history of tobacco use. History of depression. Plan: Limited improvement and based on that, the patient will need bronchoscopy and lavage. I suspect tracheobronchomalacia with significant mucous retention. I explained to the patient procedure to the patient. She will be kept on antico agulation for now. She will be kept n.p.o. She did eat a small portion of cereal at around 7:00 and the procedure will be done at around 3 to 4 PM in the afternoon. She was agreeable to that. Anesthesia was agreeable to that. Meanwhile, she will be continued on The Same Treatment. May continue utilizing the BiPAP on and off during the day and at nighttime. For now, the patient is on 3 L of oxygen by nasal cannula, continue using the BiPAP on and off during the day and continuous at nighttime. Continue bronchodilators Continue Solu-Medrol and changed the dose up to 60 mg every 6 hours IV, this will be continued as the patient remains bronchospastic and wheezy Continue Lasix orally 40 mg p.o. twice a day Continue bronchodilators Renal function continues to be stable Will continue to follow
--- NOTE | 2023-08-31 13:48 | P.PN ---
Subjective * 78-year-old patient with past medical history significant for chronic congestive heart failure systolic dysfunction, history of atrial fibrillation, s/p pacemaker in place, chronic kidney disease, history of breast cancer s/p lumpectomy, chronic hypoxic respiratory failure on home oxygen 3 L at baseline history of obstructive lung disease presents to the emergency department with complaints of difficulty in breathing. Patient was admitted early in June with similar presentation and was noted to have CHF exacerbation. Patient states she had significant shortness of breath cough, significant anxiety. * At time of presentation workup initiated in ER included serum chemistry which showed sodium 143 potassium 4.4, dioxide 31 BUN 39 creatinine 1.66, CBC showed WBC 8.7 hemoglobin 11 hematocrit 37 platelet count of 197 chest x-ray was obt ained which showed significant amount of bilateral opacities and effusion. [place] [address], serial troponins were obtained which was 0.053, 0.042, 0.041 INR was 1.2. Patient tested negative for influenza COVID and RSV. At the time of presentation in ER patient was noted to be in distress and was placed on BiPAP gradually weaned down to nasal cannula * Patient was admitted to medical floor with consultation from cardiology and pulmonary medicine * 08/27/23: Patient seen and evaluated bedside, patient does complain of shortness of breath continue to remain on high flow oxygen on 5 L. Continue on IV Lasix, started on azithromycin secondary to sputum production. Seen by pulmonary medicine. Recurrent hospitalization prognosis remains guarded initiated on Mucinex as well * 08/28/2023: Patient seen and evaluated bedside, patient states breathing has improved, CBC reviewed hemoglobin 9.4, WBC 7.7, serum chemistry showed creatinine 1.95, potassium of 4.3. Continue patient on IV Lasix CRP around 3 we will follow-up on N-terminal proBNP for tomorrow. 07/29/2023 This is a pleasant 78 years old female with past medical history of multiple medical problems including COPD and chronic hypoxic respiratory failures on 3 L oxygen at home. She was also states on BiPAP machine at home. Presents because of dyspnea and cough 3 days and was hypoxic at 85% and for later oxygen. At home she uses 3 L. This morning she is awake alert, she still have shortness of breath while on BiPAP. Still has limited air entry. She is To THE MEDROL 60 MG SHE HAS LITTLE DIARRHEA BUT C. DIFF IS NEGATIVE. IMODIUM WHEN NECESSARY IS ORDERED. She is on home dose of eliquis as she has history of A. fib 08/30/2023 Patient still feeling short of breath although she is somewhat better than ye day, she still using the BiPAP machine, patient has been using her CPAP machine at night for the last 9 days after she left murmur and before she comes to this facility. She still have significant coughing. No chest pain She denies any other symptom She has 1+ bilateral pitting leg edema, wheezing and decrease and entry. She is currently on oral Lasix 40 mg twice daily, we added fluid restriction 1200 mL per day Also she is on ivn Medrol 60 mg 08/31/2023 Patient is still short of breath and chest: But this morning She is awake alert at baseline No other new complaints Patient going for bronchoscopy today Objective - Vital Signs Vital signs: Vital Signs Temp 97.1 F L 08/31/23 08:41 Pulse 82 08/31/23 12:34 Resp 19 08/31/23 12:34 BP 129/80 08/31/23 12:34 Pulse Ox 96 08/31/23 12:34 FiO2 40 08/31/23 11:22 Intake & Output 08/30/23 08/31/23 08/31/23 18:59 06:59 18:59 Intake Total 360 118 Balance 360 118 Weight 80 kg Intake: Oral 360 118 Other: Voiding Method External Catheter Diaper Diaper Incontinent Incontinent # Voids 1 2 # Bowel Movements 1 - Exam GENERAL: The patient is alert and oriented x3, not in any acute distress. Well developed, well nourished. HEENT: Pupils are round and equally reacting to light. EOMI. No scleral icterus. No conjunctival pallor. Normocephalic, atraumatic. No pharyngeal erythema. No thyromegaly. CARDIOVASCULAR: S1 and S2 present. No murmurs, rubs, or gallops. -PULMONARY: Chest is clear to auscultation, bilateral expiratory wheezing , no crackles. ABDOMEN: Soft, nontender, nondistended, normoactive bowel sounds. No palpable organomegaly. MUSCULOSKELETAL: No joint swelling or deformity. EXTREMITIES: No cyanosis, clubbing, or pedal edema. NEUROLOGICAL: Gross neurological examination did not reveal any focal deficits. SKIN: No rashes. no petechiae. - Labs CBC & Chem 7: 08/29/23 11:32 08/31/23 07:26 Labs: Abnormal Lab Results - Last 24 Hours (Table) 08/30/23 08/30/23 08/31/23 Range/Units 16:31 20:27 06:02 Carbon Dioxide (22-30) mmol/L BUN (7-17) mg/dL Creatinine (0.52-1.04) mg/dL Glucose (74-99) mg/dL POC Glucose (mg/dL) 161 H 218 H 184 H (70-110) mg/dL 08/31/23 08/31/23 Range/Units 07:26 11:40 Carbon Dioxide 32 H (22-30) mmol/L BUN 73 H (7-17) mg/dL Creatinine 2.11 H (0.52-1.04) mg/dL Glucose 166 H (74-99) mg/dL POC Glucose (mg/dL) 230 H (70-110) mg/dL Assessment and Plan Assessment: Exacerbation Acute on chronic CHF with ejection fraction 35% Acute on chronic hypoxic respiratory failure Reactive diarrhea Chronic anemia Chronic kidney disease stage III History of GERD Plan: continue with IV Solu-Medrol 60 mg Continue with oral Lasix 40 mg twice daily. Fluid restriction 1200 mL per day Cardiology and pulmonary consult Continue with her dose of oxygen and BiPAP when necessary Labs and medication were reviewed.. Continue same treatment. Continue with symptomatic treatment. Resume home medication. Monitor labs and vitals. DVT and GI prophylaxis. Further recommendations as per clinical course of the patient DVT prophylaxis: eliquis GI Prophylaxis: Ppi PT/OT: Pending Prognosis is guarded
[2023-08-31] MEDS ORDERED: fentaNYL (PF) 50 MCG/ML 2 ML AMP ONE (15:34)
[2023-08-31] MEDS: SODIUM CHLORIDE 0.9% 500 ML 500 ML IV ONE (15:34)
[2023-08-31] MEDS ORDERED: ETOMIDATE 2 MG/ML 10 ML VIAL ONE (15:34)
[2023-08-31] MEDS ORDERED: LIDOCAINE 2% (PF) 20 MG/ML 5 ML VIAL ONE (15:34)
[2023-08-31 16:50] LABS: Glucose,Whole Blood 121 mg/dL (70-110)
--- NOTE | 2023-08-31 19:35 | P.PCN ---
Date of Procedure: 08/31/23 Preoperative Diagnosis: COPD and ongoing shortness of breath Postoperative Diagnosis: Severe tracheobronchomalacia Copious amount of mucus retained within the patient's airway, purulent, rule out underlying tracheobronchitis Diffuse mucosal inflammatory changes consistent with acute irritable colitis COPD Procedure(s) Performed: Bronchoscopy, therapeutic airway suctioning and bronchoalveolar lavage Anesthesia: MAC Surgeon: Adriano Alonzo Estimated Blood Loss (ml): 0 Pathology: other Condition: stable Disposition: floor Operative Findings: The patient was hospitalized for COPD/CHF exacerbation. The patient continued to have harsh cough, excessive chest congestion, unable to bring up any sputum. The patient remained hypoxic. Based on lack of response to routine medical therapy and bronchodilator and steroid therapy, the patient was scheduled to undergo a flexor bronchoscopy for airway inspection. Consent was obtained. A timeout was done This procedure was done in the endoscopy suite. The patient was given medication for sedation by [employer] at the bedside. After achieving adequate sedation, the flexor bronchoscope was introduced through the left nostril and it was advanced into the posterior pharynx, and larynx. Examination of the upper airways was within normal limits. Epiglottis, arytenoids, and the vocal cords were all within normal limits. A total of 2 cc of 1% lidocaine was applied to the vocal cords and following that the bronchoscope was advanced into the upper trachea. Examination of the trachea was done and the patient was found to have severe tracheobronchomalacia. Copious amount of respiratory secretions were also identified in the trachea and these were creamy, beige in color, purulent, thick and hard to suction. Therapeutic airway suctioning was done. Entire trachea was noted. There was mucosal inflammatory changes throughout the tracheobronchial tree. The membranous trachea was quite collapsible consistent with tracheobronchomalacia and the patient was having dynamic collapsibility of the airway with coughing and exhalation. There were inspection was completed. Similar amount of copious respiratory secretions were identified in the bilateral mainstem bronchi and lower lobes bilaterally. Therapeutic airway suctioning was done. Following that, airway inspection was completed and the examination included the bilateral mainstem bronchi, right upper lobe bronchus, bronchus intermedius, right middle lobe bronchus, right lower lobe bronchus and the very scant segments on the right and the examination of the left side include the left mainstem bronchus, left upper lobe bronchus, left lower lobe bronchus and the various 8 segments on the left. After achieving complete airway patency and airway. Patency was restored and all of the respiratory secretions were suctioned out, a bronchial lavage of the right lower lobe was done. A total of 15 to 20 cc of aspirate was obtained and the aspirate was quite cloudy. No bedside complications. The bronchoscope was removed and the patient was transferred to recovery in stable condition. Oxygenation remained above 90% throughout the procedure. No complications.
[2023-08-31 20:29] LABS: Glucose,Whole Blood 200 mg/dL (70-110)
[2023-09-01 06:06] LABS: Glucose,Whole Blood 175 mg/dL (70-110)
--- NOTE | 2023-09-01 07:31 | P.PN ---
Subjective * 78-year-old patient with past medical history significant for chronic congestive heart failure systolic dysfunction, history of atrial fibrillation, s/p pacemaker in place, chronic kidney disease, history of breast cancer s/p lumpectomy, chronic hypoxic respiratory failure on home oxygen 3 L at baseline history of obstructive lung disease presents to the emergency department with complaints of difficulty in breathing. Patient was admitted early in June with similar presentation and was noted to have CHF exacerbation. Patient states she had significant shortness of breath cough, significant anxiety. * At time of presentation workup initiated in ER included serum chemistry which showed sodium 143 potassium 4.4, dioxide 31 BUN 39 creatinine 1.66, CBC showed WBC 8.7 hemoglobin 11 hematocrit 37 platelet count of 197 chest x-ray was obt ained which showed significant amount of bilateral opacities and effusion. [place] [address], serial troponins were obtained which was 0.053, 0.042, 0.041 INR was 1.2. Patient tested negative for influenza COVID and RSV. At the time of presentation in ER patient was noted to be in distress and was placed on BiPAP gradually weaned down to nasal cannula * Patient was admitted to medical floor with consultation from cardiology and pulmonary medicine * 08/27/23: Patient seen and evaluated bedside, patient does complain of shortness of breath continue to remain on high flow oxygen on 5 L. Continue on IV Lasix, started on azithromycin secondary to sputum production. Seen by pulmonary medicine. Recurrent hospitalization prognosis remains guarded initiated on Mucinex as well * 08/28/2023: Patient seen and evaluated bedside, patient states breathing has improved, CBC reviewed hemoglobin 9.4, WBC 7.7, serum chemistry showed creatinine 1.95, potassium of 4.3. Continue patient on IV Lasix CRP around 3 we will follow-up on N-terminal proBNP for tomorrow. 07/29/2023 This is a pleasant 78 years old female with past medical history of multiple medical problems including COPD and chronic hypoxic respiratory failures on 3 L oxygen at home. She was also states on BiPAP machine at home. Presents because of dyspnea and cough 3 days and was hypoxic at 85% and for later oxygen. At home she uses 3 L. This morning she is awake alert, she still have shortness of breath while on BiPAP. Still has limited air entry. She is To THE MEDROL 60 MG SHE HAS LITTLE DIARRHEA BUT C. DIFF IS NEGATIVE. IMODIUM WHEN NECESSARY IS ORDERED. She is on home dose of eliquis as she has history of A. fib 08/30/2023 Patient still feeling short of breath although she is somewhat better than ye sterday, she still using the BiPAP machine, patient has been using her CPAP machine at night for the last 9 days after she left murmur and before she comes to this facility. She still have significant coughing. No chest pain She denies any other symptom She has 1+ bilateral pitting leg edema, wheezing and decrease and entry. She is currently on oral Lasix 40 mg twice daily, we added fluid restriction 1200 mL per day Also she is on ivn Medrol 60 mg 08/31/2023 Patient is still short of breath and chest: But this morning She is awake alert at baseline No other new complaints Patient going for bronchoscopy today 09/01/2023 Patient status post bronchoscopy yesterday showing suspicious for acute tracheobronchitis with a lot of secretions and purulence materials that's been washed out She is losing BiPAP overnight however this morning she was off of later oxygen via nasal cannula, she says her breathing is better but she still have significant wheezing and bronchospasm She remains on IV Solu-Medrol 60 mg She is complaining of from oral thrush and nystatin was admitted today Objective - Vital Signs Vital signs: Vital Signs Temp 98.1 F 09/01/23 04:00 Pulse 86 09/01/23 04:00 Resp 15 09/01/23 02:00 BP 118/75 09/01/23 04:00 Pulse Ox 95 09/01/23 04:00 FiO2 40 09/01/23 04:00 Intake & Output 08/31/23 09/01/23 09/01/23 18:59 06:59 18:59 Intake Total 100 Output Total 600 Balance -500 Weight 78.5 kg Intake: IV 100 Output: Urine 600 Other: Voiding Method Diaper Diaper Incontinent Incontinent External Catheter # Bowel Movements 1 - Exam GENERAL: The patient is alert and oriented x3, not in any acute distress. Well developed, well nourished. HEENT: Pupils are round and equally reacting to light. EOMI. No scleral icterus. No conjunctival pallor. Normocephalic, atraumatic. No pharyngeal erythema. No thyromegaly. CARDIOVASCULAR: S1 and S2 present. No murmurs, rubs, or gallops. -PULMONARY: Chest is clear to auscultation, bilateral expiratory wheezing , no crackles. ABDOMEN: Soft, nontender, nondistended, normoactive bowel sounds. No palpable organomegaly. MUSCULOSKELETAL: No joint swelling or deformity. EXTREMITIES: No cyanosis, clubbing, or pedal edema. NEUROLOGICAL: Gross neurological examination did not reveal any focal deficits. SKIN: No rashes. no petechiae. - Labs CBC & Chem 7: 08/29/23 11:32 08/31/23 07:26 Labs: Abnormal Lab Results - Last 24 Hours (Table) 08/31/23 08/31/23 08/31/23 Range/Units 07:26 11:40 16:48 Carbon Dioxide 32 H (22-30) mmol/L BUN 73 H (7-17) mg/dL Creatinine 2.11 H (0.52-1.04) mg/dL Glucose 166 H (74-99) mg/dL POC Glucose (mg/dL) 230 H 121 H (70-110) mg/dL 08/31/23 09/01/23 Range/Units 20:27 06:05 Carbon Dioxide (22-30) mmol/L BUN (7-17) mg/dL Creatinine (0.52-1.04) mg/dL Glucose (74-99) mg/dL POC Glucose (mg/dL) 200 H 175 H (70-110) mg/dL Assessment and Plan Assessment: Acute COPD exacerbation Acute tracheobronchitis Acute on chronic CHF with ejection fraction 35% Acute on chronic hypoxic respiratory failure Reactive diarrhea Chronic anemia Chronic kidney disease stage III History of GERD Plan: continue with IV Solu-Medrol 60 mg Continue with oral Lasix 40 mg twice daily. Fluid restriction 1200 mL per day Cardiology and pulmonary consult Continue with her dose of oxygen and BiPAP when necessary Labs and medication were reviewed.. Continue same treatment. Continue with sy mptomatic treatment. Resume home medication. Monitor labs and vitals. DVT and GI prophylaxis. Further recommendations as per clinical course of the patient DVT prophylaxis: eliquis GI Prophylaxis: Ppi PT/OT: Pending Prognosis is guarded
[2023-09-01 08:28] LABS: Appearance,BF Turbid (Clear); RBC, Body Fluid 9063 /UL (0-2000)
[2023-09-01] MEDS: NYSTATIN 100,000 UNIT/ML SUSP 500,000 UNIT/5 ML CUP PO SCH (08:55)
[2023-09-01 09:29] LABS: Nucleated Cells, Body Fluid 1138 /UL
[2023-09-01] MEDS: predniSONE 20 MG TAB PO SCH (09:37)
--- NOTE | 2023-09-01 11:31 | P.PN ---
Subjective Progress Note Date: 09/01/23 78-year-old female seen in the emergency department, on August 26. She presented to the ER, on August 25, complaining of shortness of breath. The patient had been having shortness of breath for couple days prior to admission. In addition, he had a persistent cough, and lower extremity edema. The patient was evaluated, and was found to have CHF. The patient was initially placed on BiPAP, with settings of 16/5 and 40%. When I saw her in the emergency department, she was in room #5, and was on 4 L by nasal cannula. The patient was not getting any IV fluids. She is feeling a bit better. Her past medical history is positive for atrial fibrillation, asthma, breast cancer, heart failure, COPD, GERD, arthritis, and gout. The patient has had a pacemaker implanted as well. She was a former smoker in the past. White count 8.7, hemoglobin 11, hematocrit 37.3, and platelet count was 197,000. PT 12.6, INR 1.2, PTT is 31. Sodium 143, potassium 4.4, chlorides 106, CO2 31, BUN 39, creatinine 1.66. Her troponins were 0.053, 0.042, and 0.041. Her N-terminal proBNP was 16,700. She tested negative for influenza, RSV, and coronavirus. Chest x-ray showed the pacemaker, cardiomegaly, cephalization, bilateral pleural effusions. Progress note dated August 27, 2023. 78-year-old female seen in the emergency department, on August 26. The patient came into the ER on 25 August, complaining of shortness of breath. The patient was found to have congestive heart failure. The patient was placed on BiPAP. She is currently on 16/5 and 40%. She is not receiving any IV fluids. The patient is feeling better. White count is 9.5, hemoglobin 10.1, hematocrit 33.4, and a platelet count of 189,000. Sodium 142, potassium 4.5, chlorides 108, CO2 27, BUN 53, and creatinine 1.86. Glucose is 124. N-terminal proBNP was 18,100. Microbiology was pending are negative. No recent chest x-ray. On today's evaluation of 08/28/2023, I am seeing the patient for a follow-up. The patient is a 78-year-old female was hospitalized for worsening shortness of breath. The patient had also some increased cough and congestion and wheezing. She had increased edema lower extremities bilaterally. The patient was supported with a BiPAP at a pressure of 16 over 5 cm of water with an FiO2 of 40%. The patient is currently taken off the BiPAP and she is currently on 5 L of oxygen by nasal cannula. She is oxygen dependent at 3 L. Note that she has history of COPD and she has been maintained on Trelegy Ellipta on outpatient basis. She has acid reflux, osteoarthritis, gout, history of breast cancer, chronic A-fib and the patient has been on anticoagulation with Eliquis on outpatient basis. The labs from today shows a WBC count of 7.7, hemoglobin 10.4, BUN is a 58 with a catheter 1.9 and his sodium level is at142. As far as the renal function, the patient has chronic renal disease, stage III. The viral screen was negative.Her previous echocardiogram that was done on 06/26/2023 showed impairment of LV function with an ejection fraction of 35 to 40%. Moderate MR, severe TR, severe pulm hypertension. On 08/29/2023, the patient is awake and alert and communicating. She is off the BiPAP. She is still bronchospastic and wheezy. She is on a combination of bronchodilators and steroids. Patient is also on Lasix 40 mg p.o. twice a day. She is on oxygen at 3 L/min nasal cannula.No other specific complaints. Awaiting labs from today. Yesterday's labs showed a creatinine of 1.95 cons istent with chronic kidney disease. The patient's echocardiogram on 06/26/2023 showed impairment of LV function with an ejection fraction of 35 to 40% along with moderate MR and severe tricuspid regurgitation. On today's evaluation of 11/28/2023, the patient continues to have a barky congested cough. Seems to be less bronchospastic and wheezy compared to yesterday. Suspect underlying tracheobronchomalacia. She remains on bronchodilators. She remains on IV Solu-Medrol 60 mg IV push every 6 hours. The patient is also on Lasix 40 mg p.o. twice a day. Awake and alert and communicating. The patient's pulse ox is 94% on 40 Suboxone by nasal cannula and she is afebrile. Note that she is unable to bring up any sputum. Sodium levels at 139 with a potassium level of 5.1 with a BUN of 72 and a creatinine of 2.1The patient is known to have chronic kidney disease and the creatinine is slightly on the rise he had stable compared to yesterday and the day before. She is tolerating her diet. No chest pain. No significant edema lower extremities and the patient has been switched to oral Lasix 40 mg p.o. twice a day. On today's evaluation of 08/31/2023, the patient is being seen for a follow-up. Continues to have the same problem of a vigorous cough with congestion and unable to bring up much of sputum. Based on that, I am going to bronchoscope this patient this afternoon. I suspect that the patient has an underlying tracheobronchomalacia with significant mucous retention. The patient is currently on DuoNeb updrafts. The patient remains on episode of medical 60 mg every 6 hours. She remains also on oral Lasix 40 mg twice a day. Labs from today shows a BUN of 73 with a creatinine of 2.1 as the patient's chronic kidney disease and sodium levels at 141. Meanwhile, the patient had a small portion of seated at around 7:00 this morning. Based on that, she will be kept n.p.o. and her procedure will be done after 3 PM and this will essentially include a bronchoscopy and lavage and therapeutic airway suctioning. The patient is on anticoagulation with Eliquis. No need to stop anticoagulation for now. On today's evaluation of 09/01/2023, I am seeing the patient for a follow-up. The patient underwent a bronchoscopy yesterday and there was significant improvement in the patient's respiratory status. The patient was found to have tracheobronchomalacia and significant amount of mucus trapped within the lungs. Cultures are still pending for now from the bronchoalveolar lavage that was collected earlier. Cough and congestion has subsided compared to yesterday. U tilizing the BiPAP overnight. Currently on DuoNeb updrafts, Perforomist and Pulmicort nebulized treatments twice a day and the patient remains on IV Solu- Medrol which was transitioned to oral prednisone. Renal function from yesterday was stable. The patient has no other specific complaints. Overall, she reports improvement in her respiratory status since yesterday. Objective - Vital Signs Vital signs: Vital Signs Temp 97.4 F L 09/01/23 07:59 Pulse 67 09/01/23 08:44 Resp 18 09/01/23 08:44 BP 106/69 09/01/23 07:59 Pulse Ox 97 09/01/23 08:19 FiO2 40 09/01/23 08:19 Intake & Output 08/31/23 09/01/23 09/01/23 18:59 06:59 18:59 Intake Total 100 118 Output Total 600 Balance -500 118 Weight 78.5 kg Intake: IV 100 Oral 118 Output: Urine 600 Other: Voiding Method Diaper Diaper Incontinent Incontinent External Catheter # Bowel Movements 1 - Exam Mild dyspnea, oriented 3. The patient was taken off the BiPAP and currently she is on 4 L of oxygen by nasal cannula HEENT examination is grossly unremarkable. Neck supple. Full range of motion. No adenopathy thyromegaly or neck vein distention. Cardiovascular examination reveals regular rhythm rate. S1-S2 normal. No S3 or S4. A soft systolic murmur is noted. Heart sounds are distant. Lungs reveal basilar crackles. Extensive bruising noted on the lung chong bilaterally. Diminished breath sounds bilaterally. Abdomen soft with bowel sounds. No masses or tenderness. Extremities are intact. No cyanosis or clubbing. 1+ pitting edema. Skin is without rash or lesion. Neurologic examination is brief but nonfocal. - Labs CBC & Chem 7: 08/29/23 11:32 08/31/23 07:26 Labs: Abnormal Lab Results - Last 24 Hours (Table) 08/31/23 08/31/23 08/31/23 Range/Units 11:40 15:51 16:48 POC Glucose (mg/dL) 230 H 121 H (70-110) mg/dL Fluid Appearance Turbid A (Clear) 08/31/23 09/01/23 Range/Units 20:27 06:05 POC Glucose (mg/dL) 200 H 175 H (70-110) mg/dL Fluid Appearance (Clear) Microbiology - Last 24 Hours (Table) 08/31/23 15:51 Gram Stain - Preliminary Bronchoalviolar Lavage - Left Assessment and Plan Plan: Acute hypoxemic respiratory failure secondary to systolic CHF/COPD exacerbation. The patient also has diffuse tracheobronchitis, mucous plugging and severe tracheobronchomalacia and the patient is post bronchoscopy and therapeutic airway suctioning and a bronchial lavage. The cultures are still pending for now. Clinically improved and the patient remains on 4 L of oxygen by nasal cannula. Bronchoscopy was done on 08/31/2023. Severe tracheobronchomalacia Severe tracheobronchitis with mucous plugging and diffuse mucosal inflammatory changes Chronic hypoxic respiratory failure maintained on oxygen at 3 L at home Acute exacerbation of chronic COPD Severe COPD and the patient has limited on trilogy looked on outpatient basis in addition to O2. She is an ex-smoker and she quit smoking several years back. History of atrial fibrillation, status post pacemaker implantation. The patient is maintained on long-term anticoagulation with Eliquis Systolic heart failure with ejection fraction of 35 to 40% and secondary pulmonary hypertension History of severe pulmonary hypertension. History of valvular heart disease. The patient has moderate degree of mitral regurgitation and severe tricuspid regurgitation and severe pulm hypertension. History of COPD/asthma. Chronic stage III kidney disease History of breast cancer, with previous lumpectomy on the right. Chronic hypoxemic respiratory failure, on home O2. Gastroesophageal reflux disease. History of gout. Prior history of tobacco use. History of depression. Plan: Clinically improved post bronchoscopy Awaiting the results of the bronchial lavage May continue utilizing the BiPAP on and off during the day and at nighttime. For now, the patient is on 4 L of oxygen by nasal cannula, continue using the BiPAP on and off during the day and continuous at nighttime. Continue bronchodilators Stopped IV Solu-Medrol and put the patient on prednisone burst taper starting with 40 mg Continue Lasix orally 40 mg p.o. twice a day Continue bronchodilators Renal function continues to be stable Will continue to follow
[2023-09-01 11:34] LABS: Glucose,Whole Blood 174 mg/dL (70-110)
[2023-09-01 16:38] LABS: Glucose,Whole Blood 210 mg/dL (70-110)
[2023-09-01 20:01] LABS: Glucose,Whole Blood 227 mg/dL (70-110)
[2023-09-02] MEDS: ONDANSETRON 4 MG/2 ML VIAL IVP PRN (03:33)
[2023-09-02 06:07] LABS: Glucose,Whole Blood 118 mg/dL (70-110)
[2023-09-02] MEDS: ACETAMINOPHEN TAB 325 MG TAB PO PRN (06:46)
--- NOTE | 2023-09-02 11:04 | P.PN ---
Subjective Progress Note Date: 09/02/23 78-year-old female seen in the emergency department, on August 26. She presented to the ER, on August 25, complaining of shortness of breath. The patient had been having shortness of breath for couple days prior to admission. In addition, he had a persistent cough, and lower extremity edema. The patient was evaluated, and was found to have CHF. The patient was initially placed on BiPAP, with settings of 16/5 and 40%. When I saw her in the emergency department, she was in room #5, and was on 4 L by nasal cannula. The patient was not getting any IV fluids. She is feeling a bit better. Her past medical history is positive for atrial fibrillation, asthma, breast cancer, heart failure, COPD, GERD, arthritis, and gout. The patient has had a pacemaker implanted as well. She was a former smoker in the past. White count 8.7, hemoglobin 11, hematocrit 37.3, and platelet count was 197,000. PT 12.6, INR 1.2, PTT is 31. Sodium 143, potassium 4.4, chlorides 106, CO2 31, BUN 39, creatinine 1.66. Her troponins were 0.053, 0.042, and 0.041. Her N-terminal proBNP was 16,700. She tested negative for influenza, RSV, and coronavirus. Chest x-ray showed the pacemaker, cardiomegaly, cephalization, bilateral pleural effusions. Progress note dated August 27, 2023. 78-year-old female seen in the emergency department, on August 26. The patient came into the ER on 25 August, complaining of shortness of breath. The patient was found to have congestive heart failure. The patient was placed on BiPAP. She is currently on 16/5 and 40%. She is not receiving any IV fluids. The patient is feeling better. White count is 9.5, hemoglobin 10.1, hematocrit 33.4, and a platelet count of 189,000. Sodium 142, potassium 4.5, chlorides 108, CO2 27, BUN 53, and creatinine 1.86. Glucose is 124. N-terminal proBNP was 18,100. Microbiology was pending are negative. No recent chest x-ray. On today's evaluation of 08/28/2023, I am seeing the patient for a follow-up. The patient is a 78-year-old female was hospitalized for worsening shortness of breath. The patient had also some increased cough and congestion and wheezing. She had increased edema lower extremities bilaterally. The patient was supported with a BiPAP at a pressure of 16 over 5 cm of water with an FiO2 of 40%. The patient is currently taken off the BiPAP and she is currently on 5 L of oxygen by nasal cannula. She is oxygen dependent at 3 L. Note that she has history of COPD and she has been maintained on Trelegy Ellipta on outpatient basis. She has acid reflux, osteoarthritis, gout, history of breast cancer, chronic A-fib and the patient has been on anticoagulation with Eliquis on outpatient basis. The labs from today shows a WBC count of 7.7, hemoglobin 10.4, BUN is a 58 with a catheter 1.9 and his sodium level is at142. As far as the renal function, the patient has chronic renal disease, stage III. The viral screen was negative.Her previous echocardiogram that was done on 06/26/2023 showed impairment of LV function with an ejection fraction of 35 to 40%. Moderate MR, severe TR, severe pulm hypertension. On 08/29/2023, the patient is awake and alert and communicating. She is off the BiPAP. She is still bronchospastic and wheezy. She is on a combination of bronchodilators and steroids. Patient is also on Lasix 40 mg p.o. twice a day. She is on oxygen at 3 L/min nasal cannula.No other specific complaints. Awaiting labs from today. Yesterday's labs showed a creatinine of 1.95 cons istent with chronic kidney disease. The patient's echocardiogram on 06/26/2023 showed impairment of LV function with an ejection fraction of 35 to 40% along with moderate MR and severe tricuspid regurgitation. On today's evaluation of 11/28/2023, the patient continues to have a barky congested cough. Seems to be less bronchospastic and wheezy compared to yesterday. Suspect underlying tracheobronchomalacia. She remains on bronchodilators. She remains on IV Solu-Medrol 60 mg IV push every 6 hours. The patient is also on Lasix 40 mg p.o. twice a day. Awake and alert and communicating. The patient's pulse ox is 94% on 40 Suboxone by nasal cannula and she is afebrile. Note that she is unable to bring up any sputum. Sodium levels at 139 with a potassium level of 5.1 with a BUN of 72 and a creatinine of 2.1The patient is known to have chronic kidney disease and the creatinine is slightly on the rise he had stable compared to yesterday and the day before. She is tolerating her diet. No chest pain. No significant edema lower extremities and the patient has been switched to oral Lasix 40 mg p.o. twice a day. On today's evaluation of 08/31/2023, the patient is being seen for a follow-up. Continues to have the same problem of a vigorous cough with congestion and unable to bring up much of sputum. Based on that, I am going to bronchoscope this patient this afternoon. I suspect that the patient has an underlying tracheobronchomalacia with significant mucous retention. The patient is currently on DuoNeb updrafts. The patient remains on episode of medical 60 mg every 6 hours. She remains also on oral Lasix 40 mg twice a day. Labs from today shows a BUN of 73 with a creatinine of 2.1 as the patient's chronic kidney disease and sodium levels at 141. Meanwhile, the patient had a small portion of seated at around 7:00 this morning. Based on that, she will be kept n.p.o. and her procedure will be done after 3 PM and this will essentially include a bronchoscopy and lavage and therapeutic airway suctioning. The patient is on anticoagulation with Eliquis. No need to stop anticoagulation for now. On today's evaluation of 09/01/2023, I am seeing the patient for a follow-up. The patient underwent a bronchoscopy yesterday and there was significant improvement in the patient's respiratory status. The patient was found to have tracheobronchomalacia and significant amount of mucus trapped within the lungs. Cultures are still pending for now from the bronchoalveolar lavage that was collected earlier. Cough and congestion has subsided compared to yesterday. U tilizing the BiPAP overnight. Currently on DuoNeb updrafts, Perforomist and Pulmicort nebulized treatments twice a day and the patient remains on IV Solu- Medrol which was transitioned to oral prednisone. Renal function from yesterday was stable. The patient has no other specific complaints. Overall, she reports improvement in her respiratory status since yesterday. On today's evaluation of 09/02/2023, the patient has no specific complaints. She is still on bronchodilators and steroids. I have taken her off the IV Solu- Medrol start the patient on prednisone burst taper. Noted following the bronchoscopy, the patient had significant improvement in respiratory status and the patient does not have any significant cough and congestion at this point in time. Less bronchospastic and wheezy. As for the results of the bronchial lavage, the final cultures has not resulted yet. No fever. No chills. The patient remains on oxygen at 3 L/min nasal cannula and oxygen saturation is in order of 97%.Awaiting the final results of the bronchial lavage. Remains on anticoagulation with Eliquis 5 mg twice a day. Rest of the medication remains unchanged. Tolerating her diet. Objective - Vital Signs Vital signs: Vital Signs Temp 97.9 F 09/01/23 20:14 Pulse 92 09/02/23 08:06 Resp 18 09/02/23 08:06 BP 109/71 09/02/23 03:36 Pulse Ox 94 L 09/02/23 08:06 FiO2 40 09/02/23 03:52 Intake & Output 09/01/23 09/02/23 09/02/23 18:59 06:59 18:59 Intake Total 598 Output Total 300 250 Balance 298 -250 Intake: Oral 598 Output: Urine 300 250 Other: Voiding Method Diaper Diaper Incontinent Incontinent External Catheter External Catheter # Bowel Movements 1 1 - Exam Mild dyspnea, oriented 3. The patient was taken off the BiPAP and currently she is on 4 L of oxygen by nasal cannula HEENT examination is grossly unremarkable. Neck supple. Full range of motion. No adenopathy thyromegaly or neck vein dist ention. Cardiovascular examination reveals regular rhythm rate. S1-S2 normal. No S3 or S4. A soft systolic murmur is noted. Heart sounds are distant. Lungs reveal basilar crackles. Extensive bruising noted on the lung chong bilaterally. Diminished breath sounds bilaterally. Abdomen soft with bowel sounds. No masses or tenderness. Extremities are intact. No cyanosis or clubbing. 1+ pitting edema. Skin is without rash or lesion. Neurologic examination is brief but nonfocal. - Labs CBC & Chem 7: 08/29/23 11:32 08/31/23 07:26 Labs: Abnormal Lab Results - Last 24 Hours (Table) 08/31/23 09/01/23 09/01/23 Range/Units 15:51 11:26 16:25 POC Glucose (mg/dL) 174 H 210 H (70-110) mg/dL Fluid Appearance Turbid A (Clear) Fluid RBC 9063 H (0-2000) /uL 09/01/23 09/02/23 Range/Units 20:00 06:06 POC Glucose (mg/dL) 227 H 118 H (70-110) mg/dL Fluid Appearance (Clear) Fluid RBC (0-2000) /uL Microbiology - Last 24 Hours (Table) 08/31/23 15:51 Acid Fast Bacilli Smear - Preliminary Bronchoalviolar Lavage - Left 08/31/23 15:51 Gram Stain - Preliminary Bronchoalviolar Lavage - Left Assessment and Plan Plan: Acute hypoxemic respiratory failure secondary to systolic CHF/COPD exacerbation. The patient also has diffuse tracheobronchitis, mucous plugging and severe tracheobronchomalacia and the patient is post bronchoscopy and therapeutic airway suctioning and a bronchial lavage. The cultures are still pending for now. Clinically improved and the patient remains on 4 L of oxygen by nasal cannula. Bronchoscopy was done on 08/31/2023. Severe tracheobronchomalacia Severe tracheobronchitis with mucous plugging and diffuse mucosal inflammatory changes Chronic hypoxic respiratory failure maintained on oxygen at 3 L at home Acute exacerbation of chronic COPD Severe COPD and the patient has limited on trilogy looked on outpatient basis in addition to O2. She is an ex-smoker and she quit smoking several years back. History of atrial fibrillation, status post pacemaker implantation. The patient is maintained on long-term anticoagulation with Eliquis Systolic heart failure with ejection fraction of 35 to 40% and secondary pulmonary hypertension History of severe pulmonary hypertension. History of valvular heart disease. The patient has moderate degree of mitral regurgitation and severe tricuspid regurgitation and severe pulm hypertension. History of COPD/asthma. Chronic stage III kidney disease History of breast cancer, with previous lumpectomy on the right. Chronic hypoxemic respiratory failure, on home O2. Gastroesophageal reflux disease. History of gout. Prior history of tobacco use. History of depression. Plan: Clinically improved post bronchoscopy, and there is ongoing improvement on today's evaluation. Her cough is essentially dry at this point in time. She has been weaned down to 3 L of oxygen by nasal cannula. Awaiting the results of the bronchial lavage, the results are still pending May continue utilizing the BiPAP on and off during the day and at nighttime. For now, the patient is on 3 L of oxygen by nasal cannula, continue using the BiPAP on and off during the day and continuous at nighttime. Continue bronchodilators S continue prednisone and currently the patient is on a 40 mg as part of the burst taper Continue Lasix orally 40 mg p.o. twice a day Continue bronchodilators Renal function continues to be stable Will continue to follow
[2023-09-02 11:32] LABS: Glucose,Whole Blood 264 mg/dL (70-110)
[2023-09-02 16:39] LABS: Glucose,Whole Blood 166 mg/dL (70-110)
--- NOTE | 2023-09-02 17:01 | P.PN ---
Subjective * 78-year-old patient with past medical history significant for chronic congestive heart failure systolic dysfunction, history of atrial fibrillation, s/p pacemaker in place, chronic kidney disease, history of breast cancer s/p lumpectomy, chronic hypoxic respiratory failure on home oxygen 3 L at baseline history of obstructive lung disease presents to the emergency department with complaints of difficulty in breathing. Patient was admitted early in June with similar presentation and was noted to have CHF exacerbation. Patient states she had significant shortness of breath cough, significant anxiety. * At time of presentation workup initiated in ER included serum chemistry which showed sodium 143 potassium 4.4, dioxide 31 BUN 39 creatinine 1.66, CBC showed WBC 8.7 hemoglobin 11 hematocrit 37 platelet count of 197 chest x-ray was obt ained which showed significant amount of bilateral opacities and effusion. [place] [address], serial troponins were obtained which was 0.053, 0.042, 0.041 INR was 1.2. Patient tested negative for influenza COVID and RSV. At the time of presentation in ER patient was noted to be in distress and was placed on BiPAP gradually weaned down to nasal cannula * Patient was admitted to medical floor with consultation from cardiology and pulmonary medicine * 08/27/23: Patient seen and evaluated bedside, patient does complain of shortness of breath continue to remain on high flow oxygen on 5 L. Continue on IV Lasix, started on azithromycin secondary to sputum production. Seen by pulmonary medicine. Recurrent hospitalization prognosis remains guarded initiated on Mucinex as well * 08/28/2023: Patient seen and evaluated bedside, patient states breathing has improved, CBC reviewed hemoglobin 9.4, WBC 7.7, serum chemistry showed creatinine 1.95, potassium of 4.3. Continue patient on IV Lasix CRP around 3 we will follow-up on N-terminal proBNP for tomorrow. 07/29/2023 This is a pleasant 78 years old female with past medical history of multiple medical problems including COPD and chronic hypoxic respiratory failures on 3 L oxygen at home. She was also states on BiPAP machine at home. Presents because of dyspnea and cough 3 days and was hypoxic at 85% and for later oxygen. At home she uses 3 L. This morning she is awake alert, she still have shortness of breath while on BiPAP. Still has limited air entry. She is To THE MEDROL 60 MG SHE HAS LITTLE DIARRHEA BUT C. DIFF IS NEGATIVE. IMODIUM WHEN NECESSARY IS ORDERED. She is on home dose of eliquis as she has history of A. fib 08/30/2023 Patient still feeling short of breath although she is somewhat better than ye sterday, she still using the BiPAP machine, patient has been using her CPAP machine at night for the last 9 days after she left murmur and before she comes to this facility. She still have significant coughing. No chest pain She denies any other symptom She has 1+ bilateral pitting leg edema, wheezing and decrease and entry. She is currently on oral Lasix 40 mg twice daily, we added fluid restriction 1200 mL per day Also she is on ivn Medrol 60 mg 08/31/2023 Patient is still short of breath and chest: But this morning She is awake alert at baseline No other new complaints Patient going for bronchoscopy today 09/01/2023 Patient status post bronchoscopy yesterday showing suspicious for acute tracheobronchitis with a lot of secretions and purulence materials that's been washed out She is losing BiPAP overnight however this morning she was off of later oxygen via nasal cannula, she says her breathing is better but she still have significant wheezing and bronchospasm She remains on IV Solu-Medrol 60 mg She is complaining of from oral thrush and nystatin was admitted today 09/02/2023 Patient clinically is improving She is wished to oral prednisone 40 mg Pending the results of Vanco prior low batch Objective - Vital Signs Vital signs: Vital Signs Temp 97.8 F 09/02/23 09:23 Pulse 78 09/02/23 12:39 Resp 16 09/02/23 12:39 BP 101/62 09/02/23 12:39 Pulse Ox 95 09/02/23 12:39 FiO2 40 09/02/23 03:52 Intake & Output 09/01/23 09/02/23 09/02/23 18:59 06:59 18:59 Intake Total 598 490 Output Total 300 250 Balance 298 -250 490 Intake: IV 10 Invasive Line 3 10 Oral 598 480 Output: Urine 300 250 Other: Voiding Method Diaper Diaper Diaper Incontinent Incontinent Incontinent External Catheter External Catheter External Catheter # Voids 0 # Bowel Movements 1 1 - Exam GENERAL: The patient is alert and oriented x3, not in any acute distress. Well developed, well nourished. HEENT: Pupils are round and equally reacting to light. EOMI. No scleral icterus. No conjunctival pallor. Normocephalic, atraumatic. No pharyngeal erythema. No thyromegaly. CARDIOVASCULAR: S1 and S2 present. No murmurs, rubs, or gallops. -PULMONARY: Chest is clear to auscultation, bilateral expiratory wheezing , no crackles. ABDOMEN: Soft, nontender, nondistended, normoactive bowel sounds. No palpable organomegaly. MUSCULOSKELETAL: No joint swelling or deformity. EXTREMITIES: No cyanosis, clubbing, or pedal edema. NEUROLOGICAL: Gross neurological examination did not reveal any focal deficits. SKIN: No rashes. no petechiae. - Labs CBC & Chem 7: 08/29/23 11:32 08/31/23 07:26 Labs: Abnormal Lab Results - Last 24 Hours (Table) 09/01/23 09/01/23 09/02/23 Range/Units 16:25 20:00 06:06 POC Glucose (mg/dL) 210 H 227 H 118 H (70-110) mg/dL 09/02/23 Range/Units 11:31 POC Glucose (mg/dL) 264 H (70-110) mg/dL Microbiology - Last 24 Hours (Table) 08/31/23 15:51 Acid Fast Bacilli Smear - Preliminary Bronchoalviolar Lavage - Left 08/31/23 15:51 Gram Stain - Preliminary Bronchoalviolar Lavage - Left Assessment and Plan Assessment: Acute COPD exacerbation Acute tracheobronchitis Acute on chronic CHF with ejection fraction 35% Acute on chronic hypoxic respiratory failure Reactive diarrhea Chronic anemia Chronic kidney disease stage III History of GERD Plan: continue with IV Solu-Medrol 60 mg Continue with oral Lasix 40 mg twice daily. Fluid restriction 1200 mL per day Cardiology and pulmonary consult Continue with her dose of oxygen and BiPAP when necessary Labs and medication were reviewed.. Continue same treatment. Continue with symptomatic treatment. Resume home medication. Monitor labs and vitals. DVT and GI prophylaxis. Further recommendations as per clinical course of the patient DVT prophylaxis: eliquis GI Prophylaxis: Ppi PT/OT: Pending Prognosis is guarded
[2023-09-02 20:13] LABS: Glucose,Whole Blood 201 mg/dL (70-110)
[2023-09-03 05:56] LABS: Glucose,Whole Blood 103 mg/dL (70-110)
[2023-09-03 11:37] LABS: Glucose,Whole Blood 213 mg/dL (70-110)
--- NOTE | 2023-09-03 12:39 | P.PN ---
Subjective Progress Note Date: 09/03/23 78-year-old female seen in the emergency department, on August 26. She presented to the ER, on August 25, complaining of shortness of breath. The patient had been having shortness of breath for couple days prior to admission. In addition, he had a persistent cough, and lower extremity edema. The patient was evaluated, and was found to have CHF. The patient was initially placed on BiPAP, with settings of 16/5 and 40%. When I saw her in the emergency department, she was in room #5, and was on 4 L by nasal cannula. The patient was not getting any IV fluids. She is feeling a bit better. Her past medical history is positive for atrial fibrillation, asthma, breast cancer, heart failure, COPD, GERD, arthritis, and gout. The patient has had a pacemaker implanted as well. She was a former smoker in the past. White count 8.7, hemoglobin 11, hematocrit 37.3, and platelet count was 197,000. PT 12.6, INR 1.2, PTT is 31. Sodium 143, potassium 4.4, chlorides 106, CO2 31, BUN 39, creatinine 1.66. Her troponins were 0.053, 0.042, and 0.041. Her N-terminal proBNP was 16,700. She tested negative for influenza, RSV, and coronavirus. Chest x-ray showed the pacemaker, cardiomegaly, cephalization, bilateral pleural effusions. Progress note dated August 27, 2023. 78-year-old female seen in the emergency department, on August 26. The patient came into the ER on 25 August, complaining of shortness of breath. The patient was found to have congestive heart failure. The patient was placed on BiPAP. She is currently on 16/5 and 40%. She is not receiving any IV fluids. The patient is feeling better. White count is 9.5, hemoglobin 10.1, hematocrit 33.4, and a platelet count of 189,000. Sodium 142, potassium 4.5, chlorides 108, CO2 27, BUN 53, and creatinine 1.86. Glucose is 124. N-terminal proBNP was 18,100. Microbiology was pending are negative. No recent chest x-ray. On today's evaluation of 08/28/2023, I am seeing the patient for a follow-up. The patient is a 78-year-old female was hospitalized for worsening shortness of breath. The patient had also some increased cough and congestion and wheezing. She had increased edema lower extremities bilaterally. The patient was supported with a BiPAP at a pressure of 16 over 5 cm of water with an FiO2 of 40%. The patient is currently taken off the BiPAP and she is currently on 5 L of oxygen by nasal cannula. She is oxygen dependent at 3 L. Note that she has history of COPD and she has been maintained on Trelegy Ellipta on outpatient basis. She has acid reflux, osteoarthritis, gout, history of breast cancer, chronic A-fib and the patient has been on anticoagulation with Eliquis on outpatient basis. The labs from today shows a WBC count of 7.7, hemoglobin 10.4, BUN is a 58 with a catheter 1.9 and his sodium level is at142. As far as the renal function, the patient has chronic renal disease, stage III. The viral screen was negative.Her previous echocardiogram that was done on 06/26/2023 showed impairment of LV function with an ejection fraction of 35 to 40%. Moderate MR, severe TR, severe pulm hypertension. On 08/29/2023, the patient is awake and alert and communicating. She is off the BiPAP. She is still bronchospastic and wheezy. She is on a combination of bronchodilators and steroids. Patient is also on Lasix 40 mg p.o. twice a day. She is on oxygen at 3 L/min nasal cannula.No other specific complaints. Awaiting labs from today. Yesterday's labs showed a creatinine of 1.95 cons istent with chronic kidney disease. The patient's echocardiogram on 06/26/2023 showed impairment of LV function with an ejection fraction of 35 to 40% along with moderate MR and severe tricuspid regurgitation. On today's evaluation of 11/28/2023, the patient continues to have a barky congested cough. Seems to be less bronchospastic and wheezy compared to yesterday. Suspect underlying tracheobronchomalacia. She remains on bronchodilators. She remains on IV Solu-Medrol 60 mg IV push every 6 hours. The patient is also on Lasix 40 mg p.o. twice a day. Awake and alert and communicating. The patient's pulse ox is 94% on 40 Suboxone by nasal cannula and she is afebrile. Note that she is unable to bring up any sputum. Sodium levels at 139 with a potassium level of 5.1 with a BUN of 72 and a creatinine of 2.1The patient is known to have chronic kidney disease and the creatinine is slightly on the rise he had stable compared to yesterday and the day before. She is tolerating her diet. No chest pain. No significant edema lower extremities and the patient has been switched to oral Lasix 40 mg p.o. twice a day. On today's evaluation of 08/31/2023, the patient is being seen for a follow-up. Continues to have the same problem of a vigorous cough with congestion and unable to bring up much of sputum. Based on that, I am going to bronchoscope this patient this afternoon. I suspect that the patient has an underlying tracheobronchomalacia with significant mucous retention. The patient is currently on DuoNeb updrafts. The patient remains on episode of medical 60 mg every 6 hours. She remains also on oral Lasix 40 mg twice a day. Labs from today shows a BUN of 73 with a creatinine of 2.1 as the patient's chronic kidney disease and sodium levels at 141. Meanwhile, the patient had a small portion of seated at around 7:00 this morning. Based on that, she will be kept n.p.o. and her procedure will be done after 3 PM and this will essentially include a bronchoscopy and lavage and therapeutic airway suctioning. The patient is on anticoagulation with Eliquis. No need to stop anticoagulation for now. On today's evaluation of 09/01/2023, I am seeing the patient for a follow-up. The patient underwent a bronchoscopy yesterday and there was significant improvement in the patient's respiratory status. The patient was found to have tracheobronchomalacia and significant amount of mucus trapped within the lungs. Cultures are still pending for now from the bronchoalveolar lavage that was collected earlier. Cough and congestion has subsided compared to yesterday. U tilizing the BiPAP overnight. Currently on DuoNeb updrafts, Perforomist and Pulmicort nebulized treatments twice a day and the patient remains on IV Solu- Medrol which was transitioned to oral prednisone. Renal function from yesterday was stable. The patient has no other specific complaints. Overall, she reports improvement in her respiratory status since yesterday. On today's evaluation of 09/02/2023, the patient has no specific complaints. She is still on bronchodilators and steroids. I have taken her off the IV Solu- Medrol start the patient on prednisone burst taper. Noted following the bronchoscopy, the patient had significant improvement in respiratory status and the patient does not have any significant cough and congestion at this point in time. Less bronchospastic and wheezy. As for the results of the bronchial lavage, the final cultures has not resulted yet. No fever. No chills. The patient remains on oxygen at 3 L/min nasal cannula and oxygen saturation is in order of 97%.Awaiting the final results of the bronchial lavage. Remains on anticoagulation with Eliquis 5 mg twice a day. Rest of the medication remains unchanged. Tolerating her diet. 09/03/2023, the patient is doing well. No specific complaints. Cough and congestion is improved. Bronchoscopy was done and the cultures are essentially negative at this point in time and the patient is currently not receiving any form of antibiotics. She is a smoker spastic and wheezy and the patient was taken off the IV Solu-Medrol and started on a prednisone burst taper. She remains on DuoNeb updrafts. She is also on Lasix 40 mg p.o. twice a day she is taking Diamox for Metabolic alkalosis. No new labs available from today. COVID-19 testing was negative. Most recent blood sugars are 2013. She is c urrently on 3 days of O2 nasal cannula with a pulse ox of 91%. She is utilizing a BiPAP overnight and the patient is currently on 3 L and the patient has a home device and for obstructive sleep apnea that she is utilizing on outpatient basis. No altered mentation. No signs of any CO2 narcosis. No chest pain. She remains on anticoagulation with Eliquis. Objective - Vital Signs Vital signs: Vital Signs Temp 97.4 F L 09/03/23 04:00 Pulse 90 09/03/23 08:15 Resp 15 09/03/23 04:00 BP 103/69 09/03/23 04:00 Pulse Ox 99 09/03/23 04:00 FiO2 40 09/03/23 04:06 Intake & Output 09/02/23 09/03/23 09/03/23 18:59 06:59 18:59 Intake Total 730 20 Output Total 650 510 Balance 80 -490 Weight 79 kg Intake: IV 20 20 Invasive Line 3 20 20 Oral 710 Output: Urine 650 510 Other: Voiding Method Diaper Diaper Incontinent Incontinent External Catheter External Catheter - Exam Mild dyspnea, oriented 3. The patient was taken off the BiPAP and currently she is on 4 L of oxygen by nasal cannula HEENT examination is grossly unremarkable. Neck supple. Full range of motion. No adenopathy thyromegaly or neck vein distention. Cardiovascular examination reveals regular rhythm rate. S1-S2 normal. No S3 or S4. A soft systolic murmur is noted. Heart sounds are distant. Lungs reveal basilar crackles. Extensive bruising noted on the lung chong bilaterally. Diminished breath sounds bilaterally. Abdomen soft with bowel sounds. No masses or tenderness. Extremities are intact. No cyanosis or clubbing. 1+ pitting edema. Skin is without rash or lesion. Neurologic examination is brief but nonfocal. - Labs CBC & Chem 7: 08/29/23 11:32 08/31/23 07:26 Labs: Abnormal Lab Results - Last 24 Hours (Table) 09/02/23 09/02/23 09/02/23 Range/Units 11:31 16:38 20:11 POC Glucose (mg/dL) 264 H 166 H 201 H (70-110) mg/dL Assessment and Plan Plan: Acute hypoxemic respiratory failure secondary to systolic CHF/COPD exacerbation. The patient also has diffuse tracheobronchitis, mucous plugging and severe tracheobronchomalacia and the patient is post bronchoscopy and therapeutic airway suctioning and a bronchial lavage. Clinically improved and the patient remains on 3 L of oxygen by nasal cannula. Bronchoscopy was done on 08/31/2023. The patient's cultures are negative and the patient's overall condition is improving. Severe tracheobronchomalacia, visualized through direct bronchoscopy Severe tracheobronchitis with mucous plugging and diffuse mucosal inflammatory changes, therapeutic airway suctioning was done and copious amount of rest or secretions were suctioned out and the cultures are all negative Chronic hypoxic respiratory failure maintained on oxygen at 3 L at home Acute exacerbation of chronic COPD Severe COPD and the patient has limited on trilogy looked on outpatient basis in addition to O2. She is an ex-smoker and she quit smoking several years back. History of atrial fibrillation, status post pacemaker implantation. The patient is maintained on long-term anticoagulation with Eliquis Systolic heart failure with ejection fraction of 35 to 40% and secondary pulmonary hypertension History of severe pulmonary hypertension. History of valvular heart disease. The patient has moderate degree of mitral regurgitation and severe tricuspid regurgitation and severe pulm hypertension. History of COPD/asthma. Chronic stage III kidney disease History of breast cancer, with previous lumpectomy on the right. Chronic hypoxemic respiratory failure, on home O2. Gastroesophageal reflux disease. History of gout. Prior history of tobacco use. History of depression. Plan: Clinically improved post bronchoscopy, and there is ongoing improvement post bronchoscopy The patient's cough is essentially dry at this point in time. She has been weaned down to 3 L of oxygen by nasal cannula. Awaiting the results of the bronchial lavage, the results are still pending, no antibiotics May continue utilizing the BiPAP on and off during the day and at nighttime. For now, the patient is on 3 L of oxygen by nasal cannula, continue using the BiPAP on and off during the day and continuous at nighttime. Continue bronchodilators continue prednisone and currently the patient is on a 40 mg as part of the burst taper Continue Lasix orally 40 mg p.o. twice a day Continue anticoagulation with Eliquis Continue bronchodilators Renal function continues to be stable Will continue to follow
--- NOTE | 2023-09-03 15:05 | P.PN ---
Subjective * 78-year-old patient with past medical history significant for chronic congestive heart failure systolic dysfunction, history of atrial fibrillation, s/p pacemaker in place, chronic kidney disease, history of breast cancer s/p lumpectomy, chronic hypoxic respiratory failure on home oxygen 3 L at baseline history of obstructive lung disease presents to the emergency department with complaints of difficulty in breathing. Patient was admitted early in June with similar presentation and was noted to have CHF exacerbation. Patient states she had significant shortness of breath cough, significant anxiety. * At time of presentation workup initiated in ER included serum chemistry which showed sodium 143 potassium 4.4, dioxide 31 BUN 39 creatinine 1.66, CBC showed WBC 8.7 hemoglobin 11 hematocrit 37 platelet count of 197 chest x-ray was obt ained which showed significant amount of bilateral opacities and effusion. [place] [address], serial troponins were obtained which was 0.053, 0.042, 0.041 INR was 1.2. Patient tested negative for influenza COVID and RSV. At the time of presentation in ER patient was noted to be in distress and was placed on BiPAP gradually weaned down to nasal cannula * Patient was admitted to medical floor with consultation from cardiology and pulmonary medicine * 08/27/23: Patient seen and evaluated bedside, patient does complain of shortness of breath continue to remain on high flow oxygen on 5 L. Continue on IV Lasix, started on azithromycin secondary to sputum production. Seen by pulmonary medicine. Recurrent hospitalization prognosis remains guarded initiated on Mucinex as well * 08/28/2023: Patient seen and evaluated bedside, patient states breathing has improved, CBC reviewed hemoglobin 9.4, WBC 7.7, serum chemistry showed creatinine 1.95, potassium of 4.3. Continue patient on IV Lasix CRP around 3 we will follow-up on N-terminal proBNP for tomorrow. 07/29/2023 This is a pleasant 78 years old female with past medical history of multiple medical problems including COPD and chronic hypoxic respiratory failures on 3 L oxygen at home. She was also states on BiPAP machine at home. Presents because of dyspnea and cough 3 days and was hypoxic at 85% and for later oxygen. At home she uses 3 L. This morning she is awake alert, she still have shortness of breath while on BiPAP. Still has limited air entry. She is To THE MEDROL 60 MG SHE HAS LITTLE DIARRHEA BUT C. DIFF IS NEGATIVE. IMODIUM WHEN NECESSARY IS ORDERED. She is on home dose of eliquis as she has history of A. fib 08/30/2023 Patient still feeling short of breath although she is somewhat better than ye sterday, she still using the BiPAP machine, patient has been using her CPAP machine at night for the last 9 days after she left murmur and before she comes to this facility. She still have significant coughing. No chest pain She denies any other symptom She has 1+ bilateral pitting leg edema, wheezing and decrease and entry. She is currently on oral Lasix 40 mg twice daily, we added fluid restriction 1200 mL per day Also she is on ivn Medrol 60 mg 08/31/2023 Patient is still short of breath and chest: But this morning She is awake alert at baseline No other new complaints Patient going for bronchoscopy today 09/01/2023 Patient status post bronchoscopy yesterday showing suspicious for acute tracheobronchitis with a lot of secretions and purulence materials that's been washed out She is losing BiPAP overnight however this morning she was off of later oxygen via nasal cannula, she says her breathing is better but she still have significant wheezing and bronchospasm She remains on IV Solu-Medrol 60 mg She is complaining of from oral thrush and nystatin was admitted today 09/02/2023 Patient clinically is improving She is wished to oral prednisone 40 mg Pending the results of Azam noriega low batch 09/03/2023 Patient continued to improve since the bronchoscopy. Pending bronchoalveolar lavage results She is currently affixed oxygen via nasal cannula She is on prednisone 40 mg on home dose of Eliquis 5 mg Creatinine 2.1. Check labs tomorrow Objective - Vital Signs Vital signs: Vital Signs Temp 97.4 F L 09/03/23 04:00 Pulse 90 09/03/23 11:43 Resp 18 09/03/23 08:51 BP 95/66 09/03/23 08:51 Pulse Ox 91 L 09/03/23 08:51 FiO2 40 09/03/23 04:06 Intake & Output 09/02/23 09/03/23 09/03/23 18:59 06:59 18:59 Intake Total 730 20 250 Output Total 650 510 Balance 80 -490 250 Weight 79 kg Intake: IV 20 20 10 Invasive Line 3 20 20 10 Oral 710 240 Output: Urine 650 510 Other: Voiding Method Diaper Diaper Diaper Incontinent Incontinent Incontinent External Catheter External Catheter External Catheter # Voids 3 # Bowel Movements 1 - Exam GENERAL: The patient is alert and oriented x3, not in any acute distress. Well developed, well nourished. HEENT: Pupils are round and equally reacting to light. EOMI. No scleral icterus. No conjunctival pallor. Normocephalic, atraumatic. No pharyngeal erythema. No thyromegaly. CARDIOVASCULAR: S1 and S2 present. No murmurs, rubs, or gallops. -PULMONARY: Chest is clear to auscultation, bilateral expiratory wheezing , no crackles. ABDOMEN: Soft, nontender, nondistended, normoactive bowel sounds. No palpable organomegaly. MUSCULOSKELETAL: No joint swelling or deformity. EXTREMITIES: No cyanosis, clubbing, or pedal edema. NEUROLOGICAL: Gross neurological examination did not reveal any focal deficits. SKIN: No rashes. no petechiae. - Labs CBC & Chem 7: 08/29/23 11:32 08/31/23 07:26 Labs: Abnormal Lab Results - Last 24 Hours (Table) 09/02/23 09/02/23 09/03/23 Range/Units 16:38 20:11 11:35 POC Glucose (mg/dL) 166 H 201 H 213 H (70-110) mg/dL Microbiology - Last 24 Hours (Table) 08/31/23 15:51 Gram Stain - Final Bronchoalviolar Lavage - Left Bronchial Washings Culture - Final Assessment and Plan Assessment: Acute COPD exacerbation Acute tracheobronchitis Acute on chronic CHF with ejection fraction 35% Acute on chronic hypoxic respiratory failure Reactive diarrhea Chronic anemia Chronic kidney disease stage III History of GERD Plan: continue with IV Solu-Medrol 60 mg Continue with oral Lasix 40 mg twice daily. Fluid restriction 1200 mL per day Cardiology and pulmonary consult Continue with her dose of oxygen and BiPAP when necessary Labs and medication were reviewed.. Continue same treatment. Continue with symptomatic treatment. Resume home medication. Monitor labs and vitals. DVT and GI prophylaxis. Further recommendations as per clinical course of the patient DVT prophylaxis: eliquis GI Prophylaxis: Ppi PT/OT: Pending Prognosis is guarded
[2023-09-03 16:48] LABS: Glucose,Whole Blood 289 mg/dL (70-110)
[2023-09-03 20:34] LABS: Glucose,Whole Blood 267 mg/dL (70-110)
[2023-09-04 06:26] LABS: Glucose,Whole Blood 96 mg/dL (70-110)
[2023-09-04 07:25] LABS: African American GFR (CKD) 26 (>60 ml/min/1.73 sqM); Anion Gap 5 mmol/L; Blood Urea Nitrogen 74 mg/dL (7-17); Calcium 8.5 mg/dL (8.4-10.2); Carbon Dioxide 34 mmol/L (22-30); Chloride 104 mmol/L (98-107); Glucose 84 mg/dL (74-99); Non-African American GFR(CKD) 22 (>60 ml/min/1.73 sqM); Potassium 3.5 mmol/L (3.5-5.1); Sodium 143 mmol/L (137-145)
--- NOTE | 2023-09-04 11:20 | P.PN ---
Subjective Progress Note Date: 09/04/23 * 78-year-old patient with past medical history significant for chronic congestive heart failure systolic dysfunction, history of atrial fibrillation, s/p pacemaker in place, chronic kidney disease, history of breast cancer s/p lumpectomy, chronic hypoxic respiratory failure on home oxygen 3 L at baseline history of obstructive lung disease presents to the emergency department with complaints of difficulty in breathing. Patient was admitted early in June with similar presentation and was noted to have CHF exacerbation. Patient states she had significant shortness of breath cough, significant anxiety. * At time of presentation workup initiated in ER included serum chemistry which showed sodium 143 potassium 4.4, dioxide 31 BUN 39 creatinine 1.66, CBC showed WBC 8.7 hemoglobin 11 hematocrit 37 platelet count of 197 chest x-ray was obtained which showed significant amount of bilateral opacities and effusion. [place] [address], serial troponins were obtained which was 0.053, 0.042, 0.041 INR was 1.2. Patient tested negative for influenza COVID and RSV. At the time of presentation in ER patient was noted to be in distress and was placed on BiPAP gradually weaned down to nasal cannula * Patient was admitted to medical floor with consultation from cardiology and lmonary medicine * 08/27/23: Patient seen and evaluated bedside, patient does complain of shortness of breath continue to remain on high flow oxygen on 5 L. Continue on IV Lasix, started on azithromycin secondary to sputum production. Seen by pulmonary medicine. Recurrent hospitalization prognosis remains guarded initiated on Mucinex as well * 08/28/2023: Patient seen and evaluated bedside, patient states breathing has improved, CBC reviewed hemoglobin 9.4, WBC 7.7, serum chemistry showed creatinine 1.95, potassium of 4.3. Continue patient on IV Lasix CRP around 3 we will follow-up on N-terminal proBNP for tomorrow. 07/29/2023 This is a pleasant 78 years old female with past medical history of multiple medical problems including COPD and chronic hypoxic respiratory failures on 3 L oxygen at home. She was also states on BiPAP machine at home. Presents because of dyspnea and cough 3 days and was hypoxic at 85% and for later oxygen. At home she uses 3 L. This morning she is awake alert, she still have shortness of breath while on BiPAP. Still has limited air entry. She is To THE MEDROL 60 MG SHE HAS LITTLE DIARRHEA BUT C. DIFF IS NEGATIVE. IMODIUM WHEN NECESSARY IS ORDERED. She is on home dose of eliquis as she has history of A. fib 08/30/2023atient still feeling short of breath although she is somewhat better than yesterday, she still using the BiPAP machine, patient has been using her CPAP machine at night for the last 9 days after she left murmur and before she comes to this facility. She still have significant coughing. No chest pain She denies any other symptom She has 1+ bilateral pitting leg edema, wheezing and decrease and entry. She is currently on oral Lasix 40 mg twice daily, we added fluid restriction 1200 mL per day Also she is on ivn Medrol 60 mg 08/31/2023 Patient is still short of breath and chest: But this morning She is awake alert at baseline No other new complaints Patient going for bronchoscopy today 09/01/2023 Patient status post bronchoscopy yesterday showing suspicious for acute tracheobronchitis with a lot of secretions and purulence materials that's been washed out She is losing BiPAP overnight however this morning she was off of later oxygen via nasal cannula, she says her breathing is better but she still have significant wheezing and bronchospasm She remains on IV Solu-Medrol 60 mg She is complaining of from oral thrush and nystatin was admitted today 09/02/2023 Patient clinically is improving She is wished to oral prednisone 40 mg Pending the results of Vanco prior low batch 09/03/2023 Patient continued to improve since the bronchoscopy. Pending bronchoalveolar lavage results She is currently affixed oxygen via nasal cannula She is on prednisone 40 mg on home dose of Eliquis 5 mg Creatinine 2.1. Check labs tomorrow 09/04 Dr Cruz Assumed care Patient seen and evaluated bedside, patient does complain of cough, s/p bronchoscopy. Completed course of antibiotic continue patient on anticoagulation, Mucinex, prednisone. Pulmonary medicine following REVIEW OF SYSTEMS: Shortness of breath, cough, fatigue improved CONSTITUTIONAL: Shortness of breath, cough, fatigue improved HEENT: No recent visual problems or hearing problems. Denied any sore throat. CARDIOVASCULAR: No chest pain, orthopnea, PND, no palpitations, no syncope. PULMONARY: Shortness of breath, cough, fatigue improved GASTROINTESTINAL: No diarrhea, no nausea, no vomiting, no abdominal pain. NEUROLOGICAL: No headaches, no weakness, no numbness. HEMATOLOGICAL: Denies any bleeding or petechiae. GENITOURINARY: Denies any burning micturition, frequency, or urgency. MUSCULOSKELETAL/RHEUMATOLOGICAL: Denies any joint pain, swelling, or any muscle pain. ENDOCRINE: Denies any polyuria or polydipsia. PHYSICAL EXAMINATION: GENERAL: The patient is alert and oriented x3, ill appearance, nasal cannula in place HEENT: Pupils are round and equally reacting to light. EOMI. CARDIOVASCULAR: S1 and S2 present. Irregular PULMONARY: Decreased breath sounds bilaterally, rhonchi audible ABDOMEN: Soft, nontender, nondistended, normoactive bowel sounds. No palpable organomegaly. MUSCULOSKELETAL: No joint swelling or deformity. EXTREMITIES: Lower extremity edema present NEUROLOGICAL: Gross neurological examination did not reveal any focal deficits. SKIN: No rashes. Objective - Vital Signs Vital signs: Vital Signs Temp 98.2 F 09/04/23 08:00 Pulse 84 09/04/23 09:06 Resp 16 09/04/23 08:00 BP 110/52 09/04/23 08:00 Pulse Ox 95 09/04/23 08:47 FiO2 40 09/04/23 04:00 Intake & Output 09/03/23 09/04/23 09/04/23 18:59 06:59 18:59 Intake Total 500 310 10 Balance 500 310 10 Weight 80.5 kg Intake: IV 20 10 10 Invasive Line 3 20 10 10 Oral 480 300 Other: Voiding Method Diaper Diaper Diaper Incontinent Incontinent Incontinent External Catheter External Catheter External Catheter # Voids 3 2 # Bowel Movements 1 - Labs CBC & Chem 7: 08/29/23 11:32 09/04/23 06:25 Labs: Abnormal Lab Results - Last 24 Hours (Table) 09/03/23 09/03/23 09/03/23 Range/Units 11:35 16:42 20:31 Carbon Dioxide (22-30) mmol/L BUN (7-17) mg/dL Creatinine (0.52-1.04) mg/dL POC Glucose (mg/dL) 213 H 289 H 267 H (70-110) mg/dL 09/04/23 Range/Units 06:25 Carbon Dioxide 34 H (22-30) mmol/L BUN 74 H (7-17) mg/dL Creatinine 2.09 H (0.52-1.04) mg/dL POC Glucose (mg/dL) (70-110) mg/dL Microbiology - Last 24 Hours (Table) 08/31/23 15:51 Gram Stain - Final Bronchoalviolar Lavage - Left Bronchial Washings Culture - Final Assessment and Plan Assessment: Assessment and plan * Acute on chronic hypoxic respiratory failure * Acute on chronic exacerbation of congestive heart failure systolic dysfunction ejection fraction 35% * History of atrial fibrillation s/p pacemaker in place * History of pulmonary hypertension * History of COPD with acute exacerbation with tracheobronchitis * Gastroesophageal reflux disease * History of severe pulmonary hypertension * Chronic kidney disease * In regards to CHF exacerbation continue patient on Lasix, cardiology consulted, appreciate recommendations continue to monitor intake and output. Follow-up on renal profile while on diuresis * In Regards to acute on chronic hypoxic respiratory failure, multifactorial likely secondary to obstructive lung disease and CHF. Continue breathing treatments, completed azithromycin, transition to oral prednisone * In regards to history of A-fib continue telemonitoring optimize electrolytes continue rate control medications including metoprolol, continue Eliquis * In regards to history of pulmonary hypertension, pulmonary medicine consulted appreciate input, s/p bronchoscopy * In regards to chronic kidney disease continue to monitor creatinine while on diuresis, baseline creatinine about 1.8-2 * CODE STATUS is full code Time with Patient: Greater than 30
[2023-09-04 11:38] LABS: Glucose,Whole Blood 122 mg/dL (70-110)
--- NOTE | 2023-09-04 14:47 | P.PN ---
Subjective Progress Note Date: 09/04/23 Principal diagnosis: Acute hypoxic respiratory failure secondary to acute systolic congestive heart failure and acute exacerbation of COPD with tracheobronchomalacia 78-year-old female seen in the emergency department, on August 26. She presented to the ER, on August 25, complaining of shortness of breath. The patient had been having shortness of breath for couple days prior to admission. In addition, he had a persistent cough, and lower extremity edema. The patient was evaluated, and was found to have CHF. The patient was initially placed on BiPAP, with settings of 16/5 and 40%. When I saw her in the emergency department, she was in room #5, and was on 4 L by nasal cannula. The patient was not getting any IV fluids. She is feeling a bit better. Her past medical history is positive for atrial fibrillation, asthma, breast cancer, heart failure, COPD, GERD, arthritis, and gout. The patient has had a pacemaker implanted as well. She was a former smoker in the past. White count 8.7, hemoglobin 11, hematocrit 37.3, and platelet count was 197,000. PT 12.6, INR 1.2, PTT is 31. Sodium 143, potassium 4.4, chlorides 106, CO2 31, BUN 39, creatinine 1.66. Her troponins were 0.053, 0.042, and 0.041. Her N-terminal proBNP was 16,700. She tested negative for influenza, RSV, and coronavirus. Chest x-ray showed the pacemaker, cardiomegaly, cephalization, bilateral pleural effusions. Progress note dated August 27, 2023. 78-year-old female seen in the emergency department, on August 26. The patient came into the ER on 25 August, complaining of shortness of breath. The patient was found to have congestive heart failure. The patient was placed on BiPAP. She is currently on 16/5 and 40%. She is not receiving any IV fluids. The patient is feeling better. White count is 9.5, hemoglobin 10.1, hematocrit 33.4, and a platelet count of 189,000. Sodium 142, potassium 4.5, chlorides 108, CO2 27, BUN 53, and creatinine 1.86. Glucose is 124. N-terminal proBNP was 18,100. Microbiology was pending are negative. No recent chest x-ray. On today's evaluation of 09/02/2023, the patient has no specific complaints. She is still on bronchodilators and steroids. I have taken her off the IV Solu- Medrol start the patient on prednisone burst taper. Noted following the bronchoscopy, the patient had significant improvement in respiratory status and the patient does not have any significant cough and congestion at this point in time. Less bronchospastic and wheezy. As for the results of the bronchial lavage, the final cultures has not resulted yet. No fever. No chills. The patient remains on oxygen at 3 L/min nasal cannula and oxygen saturation is in order of 97%.Awaiting the final results of the bronchial lavage. Remains on anticoagulation with Eliquis 5 mg twice a day. Rest of the medication remains unchanged. Tolerating her diet. 09/03/2023, the patient is doing well. No specific complaints. Cough and congestion is improved. Bronchoscopy was done and the cultures are essentially negative at this point in time and the patient is currently not receiving any form of antibiotics. She is a smoker spastic and wheezy and the patient was taken off the IV Solu-Medrol and started on a prednisone burst taper. She remains on DuoNeb updrafts. She is also on Lasix 40 mg p.o. twice a day she is taking Diamox for Metabolic alkalosis. No new labs available from today. COVID-19 testing was negative. Most recent blood sugars are 2013. She is currently on 3 days of O2 nasal cannula with a pulse ox of 91%. She is utiliz ing a BiPAP overnight and the patient is currently on 3 L and the patient has a home device and for obstructive sleep apnea that she is utilizing on outpatient basis. No altered mentation. No signs of any CO2 narcosis. No chest pain. She remains on anticoagulation with Eliquis. Patient was evaluated today on 09/04/2023, continues to have cough wheezing shortness of breath, cough is productive with thick phlegm, patient seems to be more bothered with her cough than anything else. Apparently the patient had a recent bronchoscopy, cultures were negative, but apparently she had tracheobronchomalacia, and she had copious amount of secretions suctioned and lavaged by Dr. Alonzo. I have a feeling that the patient may require another bronchoscopy, however will decide on this in the next 24 hours. In the meantime the patient remains on nasal cannula, intermittently on BiPAP overnight, she does have home device for obstructive sleep apnea. Patient remains on antibiotics, bronchodilators, and on Eliquis. Basic metabolic profile is relatively normal BUN is 74 creatinine 2.09 last chest x-ray was on 08/29/2023, and I am recommending a follow-up chest x-ray considering the patient remains quite symptomatic. Objective - Vital Signs Vital signs: Vital Signs Temp 98.2 F 09/04/23 08:00 Pulse 71 09/04/23 12:10 Resp 16 09/04/23 12:10 BP 92/61 09/04/23 12:10 Pulse Ox 97 09/04/23 12:10 FiO2 40 09/04/23 04:00 Intake & Output 09/03/23 09/04/23 09/04/23 18:59 06:59 18:59 Intake Total 500 310 260 Balance 500 310 260 Weight 80.5 kg Intake: IV 20 10 20 Invasive Line 3 20 10 20 Oral 480 300 240 Other: Voiding Method Diaper Diaper Diaper Incontinent Incontinent Incontinent External Catheter External Catheter External Catheter # Voids 3 2 # Bowel Movements 1 - Exam General: The patient is awake and alert, in no distress, and does not appear acutely ill. On 3 L nasal cannula Skin: Skin is warm and dry and no rashes or lesions are noted. Eye: Pupils are equal, round and reactive to light, extra-ocular movements are intact; there is normal conjunctiva bilaterally. Ears, nose, mouth and throat: There are moist mucous membranes and no oral lesions. Neck: The neck is supple, there is no tenderness or JVD. Cardiovascular: There is a regular rate and rhythm. No murmur, rub or gallop is appreciated. Respiratory: Bilateral rhonchi and wheezes noted Gastrointestinal: Soft, non-distended, non-tender abdomen without masses or organomegaly noted. There is no rebound or guarding present. Bowel sounds are unremarkable. Back: There is no tenderness to palpation in the midline. There is no obvious deformity. Musculoskeletal: Normal ROM, no tenderness, There is no pedal edema. There is no calf tenderness or swelling. No cords were appreciated. Neurological: CN II-XII intact, Cranial nerves III through XII are intact. There are no obvious motor or sensory deficits. Coordination appears grossly intact. Speech is normal. Psychiatric: Cooperative, appropriate mood & affect, normal judgment. - Labs CBC & Chem 7: 08/29/23 11:32 09/04/23 06:25 Labs: Abnormal Lab Results - Last 24 Hours (Table) 09/03/23 09/03/23 09/04/23 Range/Units 16:42 20:31 06:25 Carbon Dioxide 34 H (22-30) mmol/L BUN 74 H (7-17) mg/dL Creatinine 2.09 H (0.52-1.04) mg/dL POC Glucose (mg/dL) 289 H 267 H (70-110) mg/dL 09/04/23 Range/Units 11:37 Carbon Dioxide (22-30) mmol/L BUN (7-17) mg/dL Creatinine (0.52-1.04) mg/dL POC Glucose (mg/dL) 122 H (70-110) mg/dL Microbiology - Last 24 Hours (Table) 08/31/23 15:51 Acid Fast Bacilli Smear - Preliminary Bronchoalviolar Lavage - Left 08/31/23 15:51 Gram Stain - Final Bronchoalviolar Lavage - Left Bronchial Washings Culture - Final Assessment and Plan Assessment: Impression: Acute on chronic hypoxemic respiratory failure secondary to systolic CHF/COPD exacerbation. The patient also has diffuse tracheobronchitis, mucous plugging and severe tracheobronchomalacia and the patient is post bronchoscopy and therapeutic airway suctioning and a bronchial lavage. Patient is denying any significant improvement today in spite of her recent bronchoscopy and BAL. Severe tracheobronchitis with mucous plugging and diffuse mucosal inflammatory changes, therapeutic airway suctioning was done and copious amount of rest or secretions were suctioned out and the cultures are all negative, may have to consider repeat bronchoscopy on this patient if she continues to be symptomatic Severe COPD and the patient has limited on trilogy looked on outpatient basis in addition to O2. She is an ex-smoker and she quit smoking several years back. History of atrial fibrillation, status post pacemaker implantation. The patient is maintained on long-term anticoagulation with Eliquis Acute on chronic systolic heart failure with ejection fraction of 35 to 40% and secondary pulmonary hypertension History of severe pulmonary hypertension. History of valvular heart disease. The patient has moderate degree of mitral regurgitation and severe tricuspid regurgitation and severe pulm hypertension. Chronic stage III kidney disease History of breast cancer, with previous lumpectomy on the right. Gastroesophageal reflux disease. History of gout. Prior history of tobacco use. History of depression. Recommendation: Continue present supportive care measures Continue antibiotics bronchodilators and steroids Continue diuretics Continue oxygen and titrate accordingly Continue BiPAP at night Continue ivania Will consider repeat bronchoscopy if the patient remains symptomatic in the next 24 hours. Will continue to follow Time with Patient: Less than 30
[2023-09-04 16:24] LABS: Glucose,Whole Blood 258 mg/dL (70-110)
[2023-09-04 20:35] LABS: Glucose,Whole Blood 259 mg/dL (70-110)
[2023-09-05 05:36] LABS: Glucose,Whole Blood 94 mg/dL (70-110)
[2023-09-05 07:32] LABS: Anisocytosis Slight; HCT 32.1 % (34.0-46.0); HGB 9.6 gm/dL (11.4-16.0); Hypochromasia Marked; MCH 28.5 pg (25.0-35.0); MCHC 29.8 g/dL (31.0-37.0); MCV 95.7 fL (80.0-100.0); Mean Platelet Volume 10.9; Platelet Count 119 k/uL (150-450); RBC 3.35 m/uL (3.80-5.40); RDW 16.5 % (11.5-15.5); WBC 8.2 k/uL (3.8-10.6)
[2023-09-05 08:02] LABS: African American GFR (CKD) 34 (>60 ml/min/1.73 sqM); Anion Gap 1 mmol/L; Blood Urea Nitrogen 65 mg/dL (7-17); Calcium 8.3 mg/dL (8.4-10.2); Carbon Dioxide 36 mmol/L (22-30); Chloride 105 mmol/L (98-107); Glucose 72 mg/dL (74-99); Non-African American GFR(CKD) 30 (>60 ml/min/1.73 sqM); Potassium 3.3 mmol/L (3.5-5.1); Sodium 142 mmol/L (137-145)
--- NOTE | 2023-09-05 08:05 | XR ---
EXAMINATION TYPE: XR chest 1V portable DATE OF EXAM: 09/05/2023 COMPARISON: To [id number] INDICATION: CHF TECHNIQUE: Single frontal view of the chest is obtained. FINDINGS: The heart size is enlarged. The pulmonary vasculature is prominent. There is increased lung markings present diffusely. Pacemaker overlies left chest. IMPRESSION: 1. Cardiomegaly and congestive heart failure. Follow-up recommended
[2023-09-05] MEDS: POTASSIUM CHLORIDE ER 20 MEQ TAB.ER PO STA (09:53)
--- NOTE | 2023-09-05 11:40 | P.PN ---
Subjective Progress Note Date: 09/05/23 * 78-year-old patient with past medical history significant for chronic congestive heart failure systolic dysfunction, history of atrial fibrillation, s/p pacemaker in place, chronic kidney disease, history of breast cancer s/p lumpectomy, chronic hypoxic respiratory failure on home oxygen 3 L at baseline history of obstructive lung disease presents to the emergency department with complaints of difficulty in breathing. Patient was admitted early in June with similar presentation and was noted to have CHF exacerbation. Patient states she had significant shortness of breath cough, significant anxiety. * At time of presentation workup initiated in ER included serum chemistry which showed sodium 143 potassium 4.4, dioxide 31 BUN 39 creatinine 1.66, CBC showed WBC 8.7 hemoglobin 11 hematocrit 37 platelet count of 197 chest x-ray was obtained which showed significant amount of bilateral opacities and effusion. [place] [address], serial troponins were obtained which was 0.053, 0.042, 0.041 INR was 1.2. Patient tested negative for influenza COVID and RSV. At the time of presentation in ER patient was noted to be in distress and was placed on BiPAP gradually weaned down to nasal cannula * Patient was admitted to medical floor with consultation from cardiology and lmonary medicine * 08/27/23: Patient seen and evaluated bedside, patient does complain of shortness of breath continue to remain on high flow oxygen on 5 L. Continue on IV Lasix, started on azithromycin secondary to sputum production. Seen by pulmonary medicine. Recurrent hospitalization prognosis remains guarded initiated on Mucinex as well * 08/28/2023: Patient seen and evaluated bedside, patient states breathing has improved, CBC reviewed hemoglobin 9.4, WBC 7.7, serum chemistry showed creatinine 1.95, potassium of 4.3. Continue patient on IV Lasix CRP around 3 we will follow-up on N-terminal proBNP for tomorrow. 07/29/2023 This is a pleasant 78 years old female with past medical history of multiple medical problems including COPD and chronic hypoxic respiratory failures on 3 L oxygen at home. She was also states on BiPAP machine at home. Presents because of dyspnea and cough 3 days and was hypoxic at 85% and for later oxygen. At home she uses 3 L. This morning she is awake alert, she still have shortness of breath while on BiPAP. Still has limited air entry. She is To THE MEDROL 60 MG SHE HAS LITTLE DIARRHEA BUT C. DIFF IS NEGATIVE. IMODIUM WHEN NECESSARY IS ORDERED. She is on home dose of eliquis as she has history of A. fib 08/30/2023atient still feeling short of breath although she is somewhat better than yesterday, she still using the BiPAP machine, patient has been using her CPAP machine at night for the last 9 days after she left murmur and before she comes to this facility. She still have significant coughing. No chest pain She denies any other symptom She has 1+ bilateral pitting leg edema, wheezing and decrease and entry. She is currently on oral Lasix 40 mg twice daily, we added fluid restriction 1200 mL per day Also she is on ivn Medrol 60 mg 08/31/2023 Patient is still short of breath and chest: But this morning She is awake alert at baseline No other new complaints Patient going for bronchoscopy today 09/01/2023 Patient status post bronchoscopy yesterday showing suspicious for acute tracheobronchitis with a lot of secretions and purulence materials that's been washed out She is losing BiPAP overnight however this morning she was off of later oxygen via nasal cannula, she says her breathing is better but she still have significant wheezing and bronchospasm She remains on IV Solu-Medrol 60 mg She is complaining of from oral thrush and nystatin was admitted today 09/02/2023 Patient clinically is improving She is wished to oral prednisone 40 mg Pending the results of Vanco prior low batch 09/03/2023 Patient continued to improve since the bronchoscopy. Pending bronchoalveolar lavage results She is currently affixed oxygen via nasal cannula She is on prednisone 40 mg on home dose of Eliquis 5 mg Creatinine 2.1. Check labs tomorrow 09/04 Dr Cruz Assumed care Patient seen and evaluated bedside, patient does complain of cough, s/p bronchoscopy. Completed course of antibiotic continue patient on anticoagulation, Mucinex, prednisone. Pulmonary medicine following 09/05: Patient seen and evaluated bedside, patient does complain of cough and shortness of breath, dose of Lasix increased to 3 times a day. Blood work reviewed CBC WBC within normal limits hemoglobin 9.6 platelet 119, potassium of 3.3 replaced, creatinine 1.64 REVIEW OF SYSTEMS: Shortness of breath, cough, fatigue improved CONSTITUTIONAL: Shortness of breath, cough, fatigue improved HEENT: No recent visual problems or hearing problems. Denied any sore throat. CARDIOVASCULAR: No chest pain, orthopnea, PND, no palpitations, no syncope. PULMONARY: Shortness of breath, cough, fatigue improved GASTROINTESTINAL: No diarrhea, no nausea, no vomiting, no abdominal pain. NEUROLOGICAL: No headaches, no weakness, no numbness. HEMATOLOGICAL: Denies any bleeding or petechiae. GENITOURINARY: Denies any burning micturition, frequency, or urgency. MUSCULOSKELETAL/RHEUMATOLOGICAL: Denies any joint pain, swelling, or any muscle pain. ENDOCRINE: Denies any polyuria or polydipsia. PHYSICAL EXAMINATION: GENERAL: The patient is alert and oriented x3, ill appearance, nasal cannula in place HEENT: Pupils are round and equally reacting to light. EOMI. CARDIOVASCULAR: S1 and S2 present. Irregular PULMONARY: Decreased breath sounds bilaterally, rhonchi audible ABDOMEN: Soft, nontender, nondistended, normoactive bowel sounds. No palpable organomegaly. MUSCULOSKELETAL: No joint swelling or deformity. EXTREMITIES: Lower extremity edema present NEUROLOGICAL: Gross neurological examination did not reveal any focal deficits. SKIN: No rashes. Objective - Vital Signs Vital signs: Vital Signs Temp 98.0 F 09/05/23 11:16 Pulse 73 09/05/23 11:16 Resp 16 09/05/23 11:16 BP 93/54 09/05/23 11:16 Pulse Ox 94 L 09/05/23 11:16 FiO2 40 09/05/23 04:00 Intake & Output 09/04/23 09/05/23 09/05/23 18:59 06:59 18:59 Intake Total 378 10 10 Output Total 300 1800 Balance 78 -1790 10 Intake: IV 20 10 10 Invasive Line 3 20 10 10 Oral 358 Output: Urine 300 1800 Other: Voiding Method Diaper Diaper External Catheter Incontinent Incontinent External Catheter External Catheter - Labs CBC & Chem 7: 09/05/23 07:00 09/05/23 07:00 Labs: Abnormal Lab Results - Last 24 Hours (Table) 09/04/23 09/04/23 09/05/23 Range/Units 16:22 20:32 07:00 RBC 3.35 L (3.80-5.40) m/uL Hgb 9.6 L (11.4-16.0) gm/dL Hct 32.1 L (34.0-46.0) % MCHC 29.8 L (31.0-37.0) g/dL RDW 16.5 H (11.5-15.5) % Plt Count 119 L (150-450) k/uL Potassium (3.5-5.1) mmol/L Carbon Dioxide (22-30) mmol/L BUN (7-17) mg/dL Creatinine (0.52-1.04) mg/dL Glucose (74-99) mg/dL POC Glucose (mg/dL) 258 H 259 H (70-110) mg/dL Calcium (8.4-10.2) mg/dL 09/05/23 Range/Units 07:00 RBC (3.80-5.40) m/uL Hgb (11.4-16.0) gm/dL Hct (34.0-46.0) % MCHC (31.0-37.0) g/dL RDW (11.5-15.5) % Plt Count (150-450) k/uL Potassium 3.3 L (3.5-5.1) mmol/L Carbon Dioxide 36 H (22-30) mmol/L BUN 65 H (7-17) mg/dL Creatinine 1.64 H (0.52-1.04) mg/dL Glucose 72 L (74-99) mg/dL POC Glucose (mg/dL) (70-110) mg/dL Calcium 8.3 L (8.4-10.2) mg/dL Microbiology - Last 24 Hours (Table) 08/31/23 15:51 Acid Fast Bacilli Smear - Preliminary Bronchoalviolar Lavage - Left Assessment and Plan Assessment: Assessment and plan * Acute on chronic hypoxic respiratory failure * Acute on chronic exacerbation of congestive heart failure systolic dysfunction ejection fraction 35% * History of atrial fibrillation s/p pacemaker in place * History of pulmonary hypertension * History of COPD with acute exacerbation with tracheobronchitis * Gastroesophageal reflux disease * History of severe pulmonary hypertension * Chronic kidney disease * In regards to CHF exacerbation continue patient on Lasix, cardiology consulted, appreciate recommendations continue to monitor intake and output. Follow-up on renal profile while on diuresis * In Regards to acute on chronic hypoxic respiratory failure, multifactorial likely secondary to obstructive lung disease and CHF. Continue breathing treatments, completed azithromycin, transition to oral prednisone * In regards to history of A-fib continue telemonitoring optimize electrolytes continue rate control medications including metoprolol, continue Eliquis * In regards to history of pulmonary hypertension, pulmonary medicine consulted appreciate input, s/p bronchoscopy * In regards to chronic kidney disease continue to monitor creatinine while on diuresis, baseline creatinine about 1.8-2 * CODE STATUS is full code Time with Patient: Greater than 30
--- NOTE | 2023-09-05 13:40 | P.PN ---
Subjective Progress Note Date: 09/05/23 Principal diagnosis: Acute hypoxic respiratory failure secondary to acute systolic congestive heart failure and acute exacerbation of COPD with tracheobronchomalacia 78-year-old female seen in the emergency department, on August 26. She presented to the ER, on August 25, complaining of shortness of breath. The patient had been having shortness of breath for couple days prior to admission. In addition, he had a persistent cough, and lower extremity edema. The patient was evaluated, and was found to have CHF. The patient was initially placed on BiPAP, with settings of 16/5 and 40%. When I saw her in the emergency department, she was in room #5, and was on 4 L by nasal cannula. The patient was not getting any IV fluids. She is feeling a bit better. Her past medical history is positive for atrial fibrillation, asthma, breast cancer, heart failure, COPD, GERD, arthritis, and gout. The patient has had a pacemaker implanted as well. She was a former smoker in the past. White count 8.7, hemoglobin 11, hematocrit 37.3, and platelet count was 197,000. PT 12.6, INR 1.2, PTT is 31. Sodium 143, potassium 4.4, chlorides 106, CO2 31, BUN 39, creatinine 1.66. Her troponins were 0.053, 0.042, and 0.041. Her N-terminal proBNP was 16,700. She tested negative for influenza, RSV, and coronavirus. Chest x-ray showed the pacemaker, cardiomegaly, cephalization, bilateral pleural effusions. Progress note dated August 27, 2023. 78-year-old female seen in the emergency department, on August 26. The patient came into the ER on 25 August, complaining of shortness of breath. The patient was found to have congestive heart failure. The patient was placed on BiPAP. She is currently on 16/5 and 40%. She is not receiving any IV fluids. The patient is feeling better. White count is 9.5, hemoglobin 10.1, hematocrit 33.4, and a platelet count of 189,000. Sodium 142, potassium 4.5, chlorides 108, CO2 27, BUN 53, and creatinine 1.86. Glucose is 124. N-terminal proBNP was 18,100. Microbiology was pending are negative. No recent chest x-ray. On today's evaluation of 09/02/2023, the patient has no specific complaints. She is still on bronchodilators and steroids. I have taken her off the IV Solu- Medrol start the patient on prednisone burst taper. Noted following the bronchoscopy, the patient had significant improvement in respiratory status and the patient does not have any significant cough and congestion at this point in time. Less bronchospastic and wheezy. As for the results of the bronchial lavage, the final cultures has not resulted yet. No fever. No chills. The patient remains on oxygen at 3 L/min nasal cannula and oxygen saturation is in order of 97%.Awaiting the final results of the bronchial lavage. Remains on anticoagulation with Eliquis 5 mg twice a day. Rest of the medication remains unchanged. Tolerating her diet. 09/03/2023, the patient is doing well. No specific complaints. Cough and congestion is improved. Bronchoscopy was done and the cultures are essentially negative at this point in time and the patient is currently not receiving any form of antibiotics. She is a smoker spastic and wheezy and the patient was taken off the IV Solu-Medrol and started on a prednisone burst taper. She remains on DuoNeb updrafts. She is also on Lasix 40 mg p.o. twice a day she is taking Diamox for Metabolic alkalosis. No new labs available from today. COVID-19 testing was negative. Most recent blood sugars are 2013. She is currently on 3 days of O2 nasal cannula with a pulse ox of 91%. She is utiliz ing a BiPAP overnight and the patient is currently on 3 L and the patient has a home device and for obstructive sleep apnea that she is utilizing on outpatient basis. No altered mentation. No signs of any CO2 narcosis. No chest pain. She remains on anticoagulation with Eliquis. Patient was evaluated today on 09/04/2023, continues to have cough wheezing shortness of breath, cough is productive with thick phlegm, patient seems to be more bothered with her cough than anything else. Apparently the patient had a recent bronchoscopy, cultures were negative, but apparently she had tracheobronchomalacia, and she had copious amount of secretions suctioned and lavaged by Dr. Alonzo. I have a feeling that the patient may require another bronchoscopy, however will decide on this in the next 24 hours. In the meantime the patient remains on nasal cannula, intermittently on BiPAP overnight, she does have home device for obstructive sleep apnea. Patient remains on antibiotics, bronchodilators, and on Eliquis. Basic metabolic profile is relatively normal BUN is 74 creatinine 2.09 last chest x-ray was on 08/29/2023, and I am recommending a follow-up chest x-ray considering the patient remains quite symptomatic. Patient was reevaluated today on 09/05/23, continues to have productive cough, wheezing, shortness of breath, chest x-ray continues to show evidence of pulmonary edema. Patient felt better after she had bronchoscopy for 2 days, however her symptoms now are back as they were prior to bronchoscopy. Can get the report, patient had tracheobronchomalacia which seems to be a major issue for this patient. I am considering bronchoscopy if the patient does not improve in the next couple of days. In the meantime we will continue to hold, we will continue bronchodilators, increase her diuretics since her chest x-ray continues to show evidence of pulmonary edema, and the patient will be given Mucinex, chest PT, and a flutter valve. Cultures from the BAL were nondiagnostic. WBC count today is 8.2 hemoglobin 9.6, basic metabolic profile is normal BUN is 65 creatinine 1.64, improving compared to creatinine of 2.09 yesterday Objective - Vital Signs Vital signs: Vital Signs Temp 98.0 F 09/05/23 11:16 Pulse 96 09/05/23 12:57 Resp 16 09/05/23 11:16 BP 93/54 09/05/23 11:16 Pulse Ox 94 L 09/05/23 11:16 FiO2 40 09/05/23 04:00 Intake & Output 09/04/23 09/05/23 09/05/23 18:59 06:59 18:59 Intake Total 378 10 10 Output Total 300 1800 Balance 78 -1790 10 Intake: IV 20 10 10 Invasive Line 3 20 10 10 Oral 358 Output: Urine 300 1800 Other: Voiding Method Diaper Diaper External Catheter Incontinent Incontinent External Catheter External Catheter - Exam General: The patient is awake and alert, in no distress, and does not appear acutely ill. On 3 L nasal cannula, O2 saturation is 94% Skin: Skin is warm and dry and no rashes or lesions are noted. Eye: Pupils are equal, round and reactive to light, extra-ocular movements are intact; there is normal conjunctiva bilaterally. Ears, nose, mouth and throat: There are moist mucous membranes and no oral lesions. Neck: The neck is supple, there is no tenderness or JVD. Cardiovascular: There is a regular rate and rhythm. No murmur, rub or gallop is appreciated. Respiratory: Bilateral rhonchi and wheezes noted Gastrointestinal: Soft, non-distended, non-tender abdomen without masses or organomegaly noted. There is no rebound or guarding present. Bowel sounds are unremarkable. Back: There is no tenderness to palpation in the midline. There is no obvious deformity. Musculoskeletal: Normal ROM, no tenderness, There is no pedal edema. There is no calf tenderness or swelling. No cords were appreciated. Neurological: CN II-XII intact, Cranial nerves III through XII are intact. There are no obvious motor or sensory deficits. Coordination appears grossly intact. Speech is normal. Psychiatric: Cooperative, appropriate mood & affect, normal judgment. - Labs CBC & Chem 7: 09/05/23 07:00 09/05/23 07:00 Labs: Abnormal Lab Results - Last 24 Hours (Table) 09/04/23 09/04/23 09/05/23 Range/Units 16:22 20:32 07:00 RBC 3.35 L (3.80-5.40) m/uL Hgb 9.6 L (11.4-16.0) gm/dL Hct 32.1 L (34.0-46.0) % MCHC 29.8 L (31.0-37.0) g/dL RDW 16.5 H (11.5-15.5) % Plt Count 119 L (150-450) k/uL Potassium (3.5-5.1) mmol/L Carbon Dioxide (22-30) mmol/L BUN (7-17) mg/dL Creatinine (0.52-1.04) mg/dL Glucose (74-99) mg/dL POC Glucose (mg/dL) 258 H 259 H (70-110) mg/dL Calcium (8.4-10.2) mg/dL 09/05/23 Range/Units 07:00 RBC (3.80-5.40) m/uL Hgb (11.4-16.0) gm/dL Hct (34.0-46.0) % MCHC (31.0-37.0) g/dL RDW (11.5-15.5) % Plt Count (150-450) k/uL Potassium 3.3 L (3.5-5.1) mmol/L Carbon Dioxide 36 H (22-30) mmol/L BUN 65 H (7-17) mg/dL Creatinine 1.64 H (0.52-1.04) mg/dL Glucose 72 L (74-99) mg/dL POC Glucose (mg/dL) (70-110) mg/dL Calcium 8.3 L (8.4-10.2) mg/dL Microbiology - Last 24 Hours (Table) 08/31/23 15:51 Acid Fast Bacilli Smear - Preliminary Bronchoalviolar Lavage - Left Assessment and Plan Assessment: Impression: Acute on chronic hypoxemic respiratory failure secondary to systolic CHF/COPD exacerbation. The patient also has diffuse tracheobronchitis, mucous plugging and severe tracheobronchomalacia and the patient is post bronchoscopy and therapeutic airway suctioning and a bronchial lavage. Patient is denying any significant improvement today in spite of her recent bronchoscopy and BAL. Severe tracheobronchitis with mucous plugging and diffuse mucosal inflammatory changes, therapeutic airway suctioning was done and copious amount of rest or secretions were suctioned out and the cultures are all negative, may have to consider repeat bronchoscopy on this patient if she continues to be symptomatic Severe COPD and the patient has limited on trilogy looked on outpatient basis in addition to O2. She is an ex-smoker and she quit smoking several years back. History of atrial fibrillation, status post pacemaker implantation. The patient is maintained on long-term anticoagulation with Eliquis Acute on chronic systolic heart failure with ejection fraction of 35 to 40% and secondary pulmonary hypertension History of severe pulmonary hypertension. History of valvular heart disease. The patient has moderate degree of mitral regurgitation and severe tricuspid regurgitation and severe pulm hypertension. Chronic stage III kidney disease History of breast cancer, with previous lumpectomy on the right. Gastroesophageal reflux disease. History of gout. Prior history of tobacco use. History of depression. Recommendation: Continue Mucinex Added flutter valve Added chest PT Increase Lasix to 40 mg 3 times daily instead of twice daily as her chest x-ray continues to show evidence of pulmonary edema Continue present supportive care measures Continue antibiotics bronchodilators and steroids Continue oxygen and titrate accordingly Continue BiPAP at night Continue eliquis Still considering bronchoscopy if no major improvement Will continue to follow Time with Patient: Less than 30
[2023-09-05] MEDS: FUROSEMIDE 40 MG TAB PO SCH (15:43)
[2023-09-05 16:07] LABS: Glucose,Whole Blood 329 mg/dL (70-110)
[2023-09-05 19:49] LABS: Glucose,Whole Blood 197 mg/dL (70-110)
[2023-09-06 06:00] LABS: Glucose,Whole Blood 113 mg/dL (70-110)
[2023-09-06 08:34] LABS: Anisocytosis Slight; HCT 34.7 % (34.0-46.0); HGB 10.3 gm/dL (11.4-16.0); Hypochromasia Marked; MCH 28.5 pg (25.0-35.0); MCHC 29.8 g/dL (31.0-37.0); MCV 95.8 fL (80.0-100.0); Mean Platelet Volume 10.5; Platelet Count 134 k/uL (150-450); RBC 3.62 m/uL (3.80-5.40); RDW 16.6 % (11.5-15.5); WBC 11.3 k/uL (3.8-10.6)
[2023-09-06 08:57] LABS: African American GFR (CKD) 34 (>60 ml/min/1.73 sqM); Anion Gap 4 mmol/L; Blood Urea Nitrogen 58 mg/dL (7-17); Calcium 8.7 mg/dL (8.4-10.2); Carbon Dioxide 37 mmol/L (22-30); Chloride 102 mmol/L (98-107); Glucose 94 mg/dL (74-99); Non-African American GFR(CKD) 29 (>60 ml/min/1.73 sqM); Potassium 3.5 mmol/L (3.5-5.1); Sodium 143 mmol/L (137-145)
[2023-09-06 10:10] LABS: C Reactive Protein 0.8 mg/dL (<1.0)
[2023-09-06 11:49] LABS: Glucose,Whole Blood 157 mg/dL (70-110)
--- NOTE | 2023-09-06 12:03 | P.PN ---
Subjective Progress Note Date: 09/06/23 * 78-year-old patient with past medical history significant for chronic congestive heart failure systolic dysfunction, history of atrial fibrillation, s/p pacemaker in place, chronic kidney disease, history of breast cancer s/p lumpectomy, chronic hypoxic respiratory failure on home oxygen 3 L at baseline history of obstructive lung disease presents to the emergency department with complaints of difficulty in breathing. Patient was admitted early in June with similar presentation and was noted to have CHF exacerbation. Patient states she had significant shortness of breath cough, significant anxiety. * At time of presentation workup initiated in ER included serum chemistry which showed sodium 143 potassium 4.4, dioxide 31 BUN 39 creatinine 1.66, CBC showed WBC 8.7 hemoglobin 11 hematocrit 37 platelet count of 197 chest x-ray was obtained which showed significant amount of bilateral opacities and effusion. [place] [address], serial troponins were obtained which was 0.053, 0.042, 0.041 INR was 1.2. Patient tested negative for influenza COVID and RSV. At the time of presentation in ER patient was noted to be in distress and was placed on BiPAP gradually weaned down to nasal cannula * Patient was admitted to medical floor with consultation from cardiology and lmonary medicine * 08/27/23: Patient seen and evaluated bedside, patient does complain of shortness of breath continue to remain on high flow oxygen on 5 L. Continue on IV Lasix, started on azithromycin secondary to sputum production. Seen by pulmonary medicine. Recurrent hospitalization prognosis remains guarded initiated on Mucinex as well * 08/28/2023: Patient seen and evaluated bedside, patient states breathing has improved, CBC reviewed hemoglobin 9.4, WBC 7.7, serum chemistry showed creatinine 1.95, potassium of 4.3. Continue patient on IV Lasix CRP around 3 we will follow-up on N-terminal proBNP for tomorrow. 07/29/2023 This is a pleasant 78 years old female with past medical history of multiple medical problems including COPD and chronic hypoxic respiratory failures on 3 L oxygen at home. She was also states on BiPAP machine at home. Presents because of dyspnea and cough 3 days and was hypoxic at 85% and for later oxygen. At home she uses 3 L. This morning she is awake alert, she still have shortness of breath while on BiPAP. Still has limited air entry. She is To THE MEDROL 60 MG SHE HAS LITTLE DIARRHEA BUT C. DIFF IS NEGATIVE. IMODIUM WHEN NECESSARY IS ORDERED. She is on home dose of eliquis as she has history of A. fib 08/30/2023atient still feeling short of breath although she is somewhat better than yesterday, she still using the BiPAP machine, patient has been using her CPAP machine at night for the last 9 days after she left murmur and before she comes to this facility. She still have significant coughing. No chest pain She denies any other symptom She has 1+ bilateral pitting leg edema, wheezing and decrease and entry. She is currently on oral Lasix 40 mg twice daily, we added fluid restriction 1200 mL per day Also she is on ivn Medrol 60 mg 08/31/2023 Patient is still short of breath and chest: But this morning She is awake alert at baseline No other new complaints Patient going for bronchoscopy today 09/01/2023 Patient status post bronchoscopy yesterday showing suspicious for acute tracheobronchitis with a lot of secretions and purulence materials that's been washed out She is losing BiPAP overnight however this morning she was off of later oxygen via nasal cannula, she says her breathing is better but she still have significant wheezing and bronchospasm She remains on IV Solu-Medrol 60 mg She is complaining of from oral thrush and nystatin was admitted today 09/02/2023 Patient clinically is improving She is wished to oral prednisone 40 mg Pending the results of Vanco prior low batch 09/03/2023 Patient continued to improve since the bronchoscopy. Pending bronchoalveolar lavage results She is currently affixed oxygen via nasal cannula She is on prednisone 40 mg on home dose of Eliquis 5 mg Creatinine 2.1. Check labs tomorrow 09/04 Dr Cruz Assumed care Patient seen and evaluated bedside, patient does complain of cough, s/p bronchoscopy. Completed course of antibiotic continue patient on anticoagulation, Mucinex, prednisone. Pulmonary medicine following 09/05: Patient seen and evaluated bedside, patient does complain of cough and shortness of breath, dose of Lasix increased to 3 times a day. Blood work reviewed CBC WBC within normal limits hemoglobin 9.6 platelet 119, potassium of 3.3 replaced, creatinine 1.64 09/06: Patient seen and evaluated bedside, patient on 3 L of oxygen, cultures from bronchoscopy shows rhinovirus and CMV DNA positive. Continue patient on diuretics, follow-up on basic metabolic panel, and CBC REVIEW OF SYSTEMS: Shortness of breath, cough, fatigue improved CONSTITUTIONAL: Shortness of breath, cough, fatigue improved HEENT: No recent visual problems or hearing problems. Denied any sore throat. CARDIOVASCULAR: No chest pain, orthopnea, PND, no palpitations, no syncope. PULMONARY: Shortness of breath, cough, fatigue improved GASTROINTESTINAL: No diarrhea, no nausea, no vomiting, no abdominal pain. NEUROLOGICAL: No headaches, no weakness, no numbness. HEMATOLOGICAL: Denies any bleeding or petechiae. GENITOURINARY: Denies any burning micturition, frequency, or urgency. MUSCULOSKELETAL/RHEUMATOLOGICAL: Denies any joint pain, swelling, or any muscle pain. ENDOCRINE: Denies any polyuria or polydipsia. PHYSICAL EXAMINATION: GENERAL: The patient is alert and oriented x3, ill appearance, nasal cannula in place HEENT: Pupils are round and equally reacting to light. EOMI. CARDIOVASCULAR: S1 and S2 present. Irregular PULMONARY: Decreased breath sounds bilaterally, rhonchi audible ABDOMEN: Soft, nontender, nondistended, normoactive bowel sounds. No palpable organomegaly. MUSCULOSKELETAL: No joint swelling or deformity. EXTREMITIES: Lower extremity edema present NEUROLOGICAL: Gross neurological examination did not reveal any focal deficits. SKIN: No rashes. Objective - Vital Signs Vital signs: Vital Signs Temp 97.5 F L 09/06/23 08:25 Pulse 90 09/06/23 11:50 Resp 17 09/06/23 08:25 BP 100/58 09/06/23 08:25 Pulse Ox 97 09/06/23 08:25 FiO2 40 09/06/23 04:00 Intake & Output 09/05/23 09/06/23 09/06/23 18:59 06:59 18:59 Intake Total 710 180 Output Total 500 1300 Balance 210 -1300 180 Intake: IV 10 Invasive Line 3 10 Oral 700 180 Output: Urine 500 1300 Other: Voiding Method External Catheter Diaper Diaper Incontinent Incontinent External Catheter External Catheter # Voids 2 - Labs CBC & Chem 7: 09/06/23 07:29 09/06/23 07:29 Labs: Abnormal Lab Results - Last 24 Hours (Table) 08/31/23 09/05/23 09/05/23 Range/Units 15:51 16:02 19:47 WBC (3.8-10.6) k/uL RBC (3.80-5.40) m/uL Hgb (11.4-16.0) gm/dL MCHC (31.0-37.0) g/dL RDW (11.5-15.5) % Plt Count (150-450) k/uL Carbon Dioxide (22-30) mmol/L BUN (7-17) mg/dL Creatinine (0.52-1.04) mg/dL POC Glucose (mg/dL) 329 H 197 H (70-110) mg/dL CMV DNA Qual PCR DETECTED A (Not detected) Rhinovirus (PCR) DETECTED A (Not detected) 09/06/23 09/06/23 09/06/23 Range/Units 05:58 07:29 07:29 WBC 11.3 H (3.8-10.6) k/uL RBC 3.62 L (3.80-5.40) m/uL Hgb 10.3 L (11.4-16.0) gm/dL MCHC 29.8 L (31.0-37.0) g/dL RDW 16.6 H (11.5-15.5) % Plt Count 134 L (150-450) k/uL Carbon Dioxide 37 H (22-30) mmol/L BUN 58 H (7-17) mg/dL Creatinine 1.67 H (0.52-1.04) mg/dL POC Glucose (mg/dL) 113 H (70-110) mg/dL CMV DNA Qual PCR (Not detected) Rhinovirus (PCR) (Not detected) 09/06/23 Range/Units 11:48 WBC (3.8-10.6) k/uL RBC (3.80-5.40) m/uL Hgb (11.4-16.0) gm/dL MCHC (31.0-37.0) g/dL RDW (11.5-15.5) % Plt Count (150-450) k/uL Carbon Dioxide (22-30) mmol/L BUN (7-17) mg/dL Creatinine (0.52-1.04) mg/dL POC Glucose (mg/dL) 157 H (70-110) mg/dL CMV DNA Qual PCR (Not detected) Rhinovirus (PCR) (Not detected) Assessment and Plan Assessment: Assessment and plan * Acute on chronic hypoxic respiratory failure * Acute on chronic exacerbation of congestive heart failure systolic dysfunction ejection fraction 35% * History of atrial fibrillation s/p pacemaker in place * History of pulmonary hypertension * History of COPD with acute exacerbation with tracheobronchitis * Gastroesophageal reflux disease * History of severe pulmonary hypertension * Chronic kidney disease * In regards to CHF exacerbation continue patient on Lasix, cardiology consulted, appreciate recommendations continue to monitor intake and output. Follow-up on renal profile while on diuresis * In Regards to acute on chronic hypoxic respiratory failure, multifactorial likely secondary to obstructive lung disease and CHF. Continue breathing treatments, completed azithromycin, transition to oral prednisone * In regards to history of A-fib continue telemonitoring optimize electrolytes continue rate control medications including metoprolol, continue Eliquis * In regards to history of pulmonary hypertension, pulmonary medicine consulted appreciate input, s/p bronchoscopy * In regards to COPD exacerbation, s/p bronchoscopy, culture positive for cytomegalovirus as well as rhinovirus * In regards to chronic kidney disease continue to monitor creatinine while on diuresis, baseline creatinine about 1.8-2 * CODE STATUS is full code
--- NOTE | 2023-09-06 12:41 | P.PN ---
Subjective Progress Note Date: 09/06/23 Principal diagnosis: Acute hypoxic respiratory failure secondary to acute systolic congestive heart failure and acute exacerbation of COPD with tracheobronchomalacia 78-year-old female seen in the emergency department, on August 26. She presented to the ER, on August 25, complaining of shortness of breath. The patient had been having shortness of breath for couple days prior to admission. In addition, he had a persistent cough, and lower extremity edema. The patient was evaluated, and was found to have CHF. The patient was initially placed on BiPAP, with settings of 16/5 and 40%. When I saw her in the emergency department, she was in room #5, and was on 4 L by nasal cannula. The patient was not getting any IV fluids. She is feeling a bit better. Her past medical history is positive for atrial fibrillation, asthma, breast cancer, heart failure, COPD, GERD, arthritis, and gout. The patient has had a pacemaker implanted as well. She was a former smoker in the past. White count 8.7, hemoglobin 11, hematocrit 37.3, and platelet count was 197,000. PT 12.6, INR 1.2, PTT is 31. Sodium 143, potassium 4.4, chlorides 106, CO2 31, BUN 39, creatinine 1.66. Her troponins were 0.053, 0.042, and 0.041. Her N-terminal proBNP was 16,700. She tested negative for influenza, RSV, and coronavirus. Chest x-ray showed the pacemaker, cardiomegaly, cephalization, bilateral pleural effusions. Progress note dated August 27, 2023. 78-year-old female seen in the emergency department, on August 26. The patient came into the ER on 25 August, complaining of shortness of breath. The patient was found to have congestive heart failure. The patient was placed on BiPAP. She is currently on 16/5 and 40%. She is not receiving any IV fluids. The patient is feeling better. White count is 9.5, hemoglobin 10.1, hematocrit 33.4, and a platelet count of 189,000. Sodium 142, potassium 4.5, chlorides 108, CO2 27, BUN 53, and creatinine 1.86. Glucose is 124. N-terminal proBNP was 18,100. Microbiology was pending are negative. No recent chest x-ray. On today's evaluation of 09/02/2023, the patient has no specific complaints. She is still on bronchodilators and steroids. I have taken her off the IV Solu- Medrol start the patient on prednisone burst taper. Noted following the bronchoscopy, the patient had significant improvement in respiratory status and the patient does not have any significant cough and congestion at this point in time. Less bronchospastic and wheezy. As for the results of the bronchial lavage, the final cultures has not resulted yet. No fever. No chills. The patient remains on oxygen at 3 L/min nasal cannula and oxygen saturation is in order of 97%.Awaiting the final results of the bronchial lavage. Remains on anticoagulation with Eliquis 5 mg twice a day. Rest of the medication remains unchanged. Tolerating her diet. 09/03/2023, the patient is doing well. No specific complaints. Cough and congestion is improved. Bronchoscopy was done and the cultures are essentially negative at this point in time and the patient is currently not receiving any form of antibiotics. She is a smoker spastic and wheezy and the patient was taken off the IV Solu-Medrol and started on a prednisone burst taper. She remains on DuoNeb updrafts. She is also on Lasix 40 mg p.o. twice a day she is taking Diamox for Metabolic alkalosis. No new labs available from today. COVID-19 testing was negative. Most recent blood sugars are 2013. She is currently on 3 days of O2 nasal cannula with a pulse ox of 91%. She is utiliz ing a BiPAP overnight and the patient is currently on 3 L and the patient has a home device and for obstructive sleep apnea that she is utilizing on outpatient basis. No altered mentation. No signs of any CO2 narcosis. No chest pain. She remains on anticoagulation with Eliquis. Patient was evaluated today on 09/04/2023, continues to have cough wheezing shortness of breath, cough is productive with thick phlegm, patient seems to be more bothered with her cough than anything else. Apparently the patient had a recent bronchoscopy, cultures were negative, but apparently she had tracheobronchomalacia, and she had copious amount of secretions suctioned and lavaged by Dr. Alonzo. I have a feeling that the patient may require another bronchoscopy, however will decide on this in the next 24 hours. In the meantime the patient remains on nasal cannula, intermittently on BiPAP overnight, she does have home device for obstructive sleep apnea. Patient remains on antibiotics, bronchodilators, and on Eliquis. Basic metabolic profile is relatively normal BUN is 74 creatinine 2.09 last chest x-ray was on 08/29/2023, and I am recommending a follow-up chest x-ray considering the patient remains quite symptomatic. Patient was reevaluated today on 09/05/23, continues to have productive cough, wheezing, shortness of breath, chest x-ray continues to show evidence of pulmonary edema. Patient felt better after she had bronchoscopy for 2 days, however her symptoms now are back as they were prior to bronchoscopy. Can get the report, patient had tracheobronchomalacia which seems to be a major issue for this patient. I am considering bronchoscopy if the patient does not improve in the next couple of days. In the meantime we will continue to hold, we will continue bronchodilators, increase her diuretics since her chest x-ray continues to show evidence of pulmonary edema, and the patient will be given Mucinex, chest PT, and a flutter valve. Cultures from the BAL were nondiagnostic. WBC count today is 8.2 hemoglobin 9.6, basic metabolic profile is normal BUN is 65 creatinine 1.64, improving compared to creatinine of 2.09 yesterday Patient was reevaluated today on 09/06/2023, patient is feeling better today, less cough less wheezing less shortness of breath, improving, hence I will hold on repeat bronchoscopy on this patient. Yesterday I increased her Lasix dose. Remains on bronchodilators, Mucinex, antibiotics, steroids, and chest PT. WBC count today is 11.3 hemoglobin 10.3 basic metabolic profile is normal bicarb is 37 BUN 58 creatinine 1.67 Objective - Vital Signs Vital signs: Vital Signs Temp 97.5 F L 09/06/23 08:25 Pulse 90 09/06/23 12:05 Resp 16 09/06/23 12:00 BP 97/58 09/06/23 12:00 Pulse Ox 94 L 09/06/23 12:00 FiO2 40 09/06/23 04:00 Intake & Output 09/05/23 09/06/23 09/06/23 18:59 06:59 18:59 Intake Total 710 180 Output Total 500 1300 Balance 210 -1300 180 Intake: IV 10 Invasive Line 3 10 Oral 700 180 Output: Urine 500 1300 Other: Voiding Method External Catheter Diaper Diaper Incontinent Incontinent External Catheter External Catheter # Voids 2 - Exam General: The patient is awake and alert, in no distress, and does not appear acutely ill. On 3 L nasal cannula Skin: Skin is warm and dry and no rashes or lesions are noted. Eye: Pupils are equal, round and reactive to light, extra-ocular movements are intact; there is normal conjunctiva bilaterally. Ears, nose, mouth and throat: There are moist mucous membranes and no oral lesions. Neck: The neck is supple, there is no tenderness or JVD. Cardiovascular: There is a regular rate and rhythm. No murmur, rub or gallop is appreciated. Respiratory: + Rhonchi and wheezes noted today compared to yesterday Gastrointestinal: Soft, non-distended, non-tender abdomen without masses or o rganomegaly noted. There is no rebound or guarding present. Bowel sounds are unremarkable. Back: There is no tenderness to palpation in the midline. There is no obvious deformity. Musculoskeletal: Normal ROM, no tenderness, There is no pedal edema. There is no calf tenderness or swelling. No cords were appreciated. Neurological: CN II-XII intact, Cranial nerves III through XII are intact. Th ere are no obvious motor or sensory deficits. Coordination appears grossly intact. Speech is normal. Psychiatric: Cooperative, appropriate mood & affect, normal judgment. - Labs CBC & Chem 7: 09/06/23 07:29 09/06/23 07:29 Labs: Abnormal Lab Results - Last 24 Hours (Table) 08/31/23 09/05/23 09/05/23 Range/Units 15:51 16:02 19:47 WBC (3.8-10.6) k/uL RBC (3.80-5.40) m/uL Hgb (11.4-16.0) gm/dL MCHC (31.0-37.0) g/dL RDW (11.5-15.5) % Plt Count (150-450) k/uL Carbon Dioxide (22-30) mmol/L BUN (7-17) mg/dL Creatinine (0.52-1.04) mg/dL POC Glucose (mg/dL) 329 H 197 H (70-110) mg/dL CMV DNA Qual PCR DETECTED A (Not detected) Rhinovirus (PCR) DETECTED A (Not detected) 09/06/23 09/06/23 09/06/23 Range/Units 05:58 07:29 07:29 WBC 11.3 H (3.8-10.6) k/uL RBC 3.62 L (3.80-5.40) m/uL Hgb 10.3 L (11.4-16.0) gm/dL MCHC 29.8 L (31.0-37.0) g/dL RDW 16.6 H (11.5-15.5) % Plt Count 134 L (150-450) k/uL Carbon Dioxide 37 H (22-30) mmol/L BUN 58 H (7-17) mg/dL Creatinine 1.67 H (0.52-1.04) mg/dL POC Glucose (mg/dL) 113 H (70-110) mg/dL CMV DNA Qual PCR (Not detected) Rhinovirus (PCR) (Not detected) 09/06/23 Range/Units 11:48 WBC (3.8-10.6) k/uL RBC (3.80-5.40) m/uL Hgb (11.4-16.0) gm/dL MCHC (31.0-37.0) g/dL RDW (11.5-15.5) % Plt Count (150-450) k/uL Carbon Dioxide (22-30) mmol/L BUN (7-17) mg/dL Creatinine (0.52-1.04) mg/dL POC Glucose (mg/dL) 157 H (70-110) mg/dL CMV DNA Qual PCR (Not detected) Rhinovirus (PCR) (Not detected) Assessment and Plan Assessment: Impression: Acute on chronic hypoxemic respiratory failure secondary to systolic CHF/COPD exacerbation. The patient also has diffuse tracheobronchitis, mucous plugging and severe tracheobronchomalacia and the patient is post bronchoscopy and therapeutic airway suctioning and a bronchial lavage. Patient is denying any significant improvement today in spite of her recent bronchoscopy and BAL. Severe tracheobronchitis with mucous plugging and diffuse mucosal inflammatory changes, therapeutic airway suctioning was done and copious amount of rest or secretions were suctioned out and the cultures are all negative, may have to consider repeat bronchoscopy on this patient if she continues to be symptomatic Severe COPD and the patient has limited on trilogy looked on outpatient basis in addition to O2. She is an ex-smoker and she quit smoking several years back. History of atrial fibrillation, status post pacemaker implantation. The patient is maintained on long-term anticoagulation with Eliquis Acute on chronic systolic heart failure with ejection fraction of 35 to 40% and secondary pulmonary hypertension History of severe pulmonary hypertension. History of valvular heart disease. The patient has moderate degree of mitral regurgitation and severe tricuspid regurgitation and severe pulm hypertension. Chronic stage III kidney disease History of breast cancer, with previous lumpectomy on the right. Gastroesophageal reflux disease. History of gout. Prior history of tobacco use. History of depression. Recommendation: Continue Mucinex Continue flutter valve and chest PT Continue Lasix 40 mg 3 times daily Continue present supportive care measures Continue antibiotics bronchodilators and steroids Continue oxygen and titrate accordingly Continue BiPAP at night Continue eliquis Will hold on bronchoscopy plans for now Will continue to follow Time with Patient: Less than 30
[2023-09-06 16:16] LABS: Glucose,Whole Blood 330 mg/dL (70-110)
[2023-09-06 19:55] LABS: Glucose,Whole Blood 252 mg/dL (70-110)
[2023-09-07 06:12] LABS: Glucose,Whole Blood 86 mg/dL (70-110)
[2023-09-07 09:23] LABS: Anisocytosis Slight; HCT 34.5 % (34.0-46.0); Hypochromasia Marked; MCH 27.6 pg (25.0-35.0); MCHC 28.9 g/dL (31.0-37.0); MCV 95.3 fL (80.0-100.0); Mean Platelet Volume 10.3; Platelet Count 148 k/uL (150-450); RBC 3.63 m/uL (3.80-5.40); RDW 16.7 % (11.5-15.5); WBC 16.4 k/uL (3.8-10.6)
[2023-09-07 10:27] LABS: African American GFR (CKD) 38 (>60 ml/min/1.73 sqM); Anion Gap 4 mmol/L; Blood Urea Nitrogen 58 mg/dL (7-17); Calcium 8.8 mg/dL (8.4-10.2); Carbon Dioxide 33 mmol/L (22-30); Chloride 104 mmol/L (98-107); Glucose 108 mg/dL (74-99); Non-African American GFR(CKD) 33 (>60 ml/min/1.73 sqM); Potassium 3.5 mmol/L (3.5-5.1); Sodium 141 mmol/L (137-145)
--- NOTE | 2023-09-07 10:40 | P.PN ---
Subjective Progress Note Date: 09/07/23 * 78-year-old patient with past medical history significant for chronic congestive heart failure systolic dysfunction, history of atrial fibrillation, s/p pacemaker in place, chronic kidney disease, history of breast cancer s/p lumpectomy, chronic hypoxic respiratory failure on home oxygen 3 L at baseline history of obstructive lung disease presents to the emergency department with complaints of difficulty in breathing. Patient was admitted early in June with similar presentation and was noted to have CHF exacerbation. Patient states she had significant shortness of breath cough, significant anxiety. * At time of presentation workup initiated in ER included serum chemistry which showed sodium 143 potassium 4.4, dioxide 31 BUN 39 creatinine 1.66, CBC showed WBC 8.7 hemoglobin 11 hematocrit 37 platelet count of 197 chest x-ray was obtained which showed significant amount of bilateral opacities and effusion. [place] [address], serial troponins were obtained which was 0.053, 0.042, 0.041 INR was 1.2. Patient tested negative for influenza COVID and RSV. At the time of presentation in ER patient was noted to be in distress and was placed on BiPAP gradually weaned down to nasal cannula * Patient was admitted to medical floor with consultation from cardiology and lmonary medicine * 08/27/23: Patient seen and evaluated bedside, patient does complain of shortness of breath continue to remain on high flow oxygen on 5 L. Continue on IV Lasix, started on azithromycin secondary to sputum production. Seen by pulmonary medicine. Recurrent hospitalization prognosis remains guarded initiated on Mucinex as well * 08/28/2023: Patient seen and evaluated bedside, patient states breathing has improved, CBC reviewed hemoglobin 9.4, WBC 7.7, serum chemistry showed creatinine 1.95, potassium of 4.3. Continue patient on IV Lasix CRP around 3 we will follow-up on N-terminal proBNP for tomorrow. 07/29/2023 This is a pleasant 78 years old female with past medical history of multiple medical problems including COPD and chronic hypoxic respiratory failures on 3 L oxygen at home. She was also states on BiPAP machine at home. Presents because of dyspnea and cough 3 days and was hypoxic at 85% and for later oxygen. At home she uses 3 L. This morning she is awake alert, she still have shortness of breath while on BiPAP. Still has limited air entry. She is To THE MEDROL 60 MG SHE HAS LITTLE DIARRHEA BUT C. DIFF IS NEGATIVE. IMODIUM WHEN NECESSARY IS ORDERED. She is on home dose of eliquis as she has history of A. fib 08/30/2023atient still feeling short of breath although she is somewhat better than yesterday, she still using the BiPAP machine, patient has been using her CPAP machine at night for the last 9 days after she left murmur and before she comes to this facility. She still have significant coughing. No chest pain She denies any other symptom She has 1+ bilateral pitting leg edema, wheezing and decrease and entry. She is currently on oral Lasix 40 mg twice daily, we added fluid restriction 1200 mL per day Also she is on ivn Medrol 60 mg 08/31/2023 Patient is still short of breath and chest: But this morning She is awake alert at baseline No other new complaints Patient going for bronchoscopy today 09/01/2023 Patient status post bronchoscopy yesterday showing suspicious for acute tracheobronchitis with a lot of secretions and purulence materials that's been washed out She is losing BiPAP overnight however this morning she was off of later oxygen via nasal cannula, she says her breathing is better but she still have significant wheezing and bronchospasm She remains on IV Solu-Medrol 60 mg She is complaining of from oral thrush and nystatin was admitted today 09/02/2023 Patient clinically is improving She is wished to oral prednisone 40 mg Pending the results of Vanco prior low batch 09/03/2023 Patient continued to improve since the bronchoscopy. Pending bronchoalveolar lavage results She is currently affixed oxygen via nasal cannula She is on prednisone 40 mg on home dose of Eliquis 5 mg Creatinine 2.1. Check labs tomorrow 09/04 Dr Cruz Assumed care Patient seen and evaluated bedside, patient does complain of cough, s/p bronchoscopy. Completed course of antibiotic continue patient on anticoagulation, Mucinex, prednisone. Pulmonary medicine following 09/05: Patient seen and evaluated bedside, patient does complain of cough and shortness of breath, dose of Lasix increased to 3 times a day. Blood work reviewed CBC WBC within normal limits hemoglobin 9.6 platelet 119, potassium of 3.3 replaced, creatinine 1.64 09/06: Patient seen and evaluated bedside, patient on 3 L of oxygen, cultures from bronchoscopy shows rhinovirus and CMV DNA positive. Continue patient on diuretics, follow-up on basic metabolic panel, and CBC 09/07/23: Patient seen and evaluated bedside, patient on 3 L of oxygen, at this time repeat bronchoscopy deferred, patient states she has improved. Continue patient on flutter valve, continue chest physiotherapy. WBC trending up, CRP minimally elevated within normal limits. Creatinine 1.5 to clinically patient is improving REVIEW OF SYSTEMS: Shortness of breath, cough, fatigue improved CONSTITUTIONAL: Shortness of breath, cough, fatigue improved HEENT: No recent visual problems or hearing problems. Denied any sore throat. CARDIOVASCULAR: No chest pain, orthopnea, PND, no palpitations, no syncope. PULMONARY: Shortness of breath, cough, fatigue improved GASTROINTESTINAL: No diarrhea, no nausea, no vomiting, no abdominal pain. NEUROLOGICAL: No headaches, no weakness, no numbness. HEMATOLOGICAL: Denies any bleeding or petechiae. GENITOURINARY: Denies any burning micturition, frequency, or urgency. MUSCULOSKELETAL/RHEUMATOLOGICAL: Denies any joint pain, swelling, or any muscle pain. ENDOCRINE: Denies any polyuria or polydipsia. PHYSICAL EXAMINATION: GENERAL: The patient is alert and oriented x3, ill appearance, nasal cannula in place HEENT: Pupils are round and equally reacting to light. EOMI. CARDIOVASCULAR: S1 and S2 present. Irregular PULMONARY: Decreased breath sounds bilaterally, rhonchi audible ABDOMEN: Soft, nontender, nondistended, normoactive bowel sounds. No palpable organomegaly. MUSCULOSKELETAL: No joint swelling or deformity. EXTREMITIES: Lower extremity edema present NEUROLOGICAL: Gross neurological examination did not reveal any focal deficits. SKIN: No rashes. Objective - Vital Signs Vital signs: Vital Signs Temp 97.8 F 09/07/23 04:02 Pulse 88 09/07/23 10:05 Resp 16 09/07/23 04:02 BP 110/68 09/07/23 04:02 Pulse Ox 96 09/07/23 09:40 FiO2 40 09/07/23 04:02 Intake & Output 09/06/23 09/07/23 09/07/23 18:59 06:59 18:59 Intake Total 180 20 Output Total 250 950 Balance -70 -930 Intake: IV 20 Invasive Line 4 20 Oral 180 0 Output: Urine 250 950 Other: Voiding Method Diaper Diaper Incontinent Incontinent External Catheter External Catheter # Voids 2 # Bowel Movements 1 - Labs CBC & Chem 7: 09/07/23 09:02 09/07/23 09:02 Labs: Abnormal Lab Results - Last 24 Hours (Table) 08/31/23 09/06/23 09/06/23 Range/Units 15:51 11:48 16:15 WBC (3.8-10.6) k/uL RBC (3.80-5.40) m/uL Hgb (11.4-16.0) gm/dL MCHC (31.0-37.0) g/dL RDW (11.5-15.5) % Plt Count (150-450) k/uL Carbon Dioxide (22-30) mmol/L BUN (7-17) mg/dL Creatinine (0.52-1.04) mg/dL Glucose (74-99) mg/dL POC Glucose (mg/dL) 157 H 330 H (70-110) mg/dL CMV DNA Qual PCR DETECTED A (Not detected) Rhinovirus (PCR) DETECTED A (Not detected) 09/06/23 09/07/23 09/07/23 Range/Units 19:54 09:02 09:02 WBC 16.4 H (3.8-10.6) k/uL RBC 3.63 L (3.80-5.40) m/uL Hgb 10.0 L (11.4-16.0) gm/dL MCHC 28.9 L (31.0-37.0) g/dL RDW 16.7 H (11.5-15.5) % Plt Count 148 L (150-450) k/uL Carbon Dioxide 33 H (22-30) mmol/L BUN 58 H (7-17) mg/dL Creatinine 1.52 H (0.52-1.04) mg/dL Glucose 108 H (74-99) mg/dL POC Glucose (mg/dL) 252 H (70-110) mg/dL CMV DNA Qual PCR (Not detected) Rhinovirus (PCR) (Not detected) Assessment and Plan Assessment: Assessment and plan * Acute on chronic hypoxic respiratory failure * Acute on chronic exacerbation of congestive heart failure systolic dysfunction ejection fraction 35% * History of atrial fibrillation s/p pacemaker in place * History of pulmonary hypertension * History of COPD with acute exacerbation with tracheobronchitis * Gastroesophageal reflux disease * History of severe pulmonary hypertension * Chronic kidney disease * In regards to CHF exacerbation continue patient on Lasix, cardiology consulted, appreciate recommendations continue to monitor intake and output. Follow-up on renal profile while on diuresis * In Regards to acute on chronic hypoxic respiratory failure, multifactorial likely secondary to obstructive lung disease and CHF. Continue breathing treatments, completed azithromycin, transition to oral prednisone * In regards to history of A-fib continue telemonitoring optimize electrolytes continue rate control medications including metoprolol, continue Eliquis * In regards to history of pulmonary hypertension, pulmonary medicine consulted appreciate input, s/p bronchoscopy, bronchoalveolar lavage reviewed, pulmonary following * In regards to COPD exacerbation, s/p bronchoscopy, culture positive for cytomegalovirus as well as rhinovirus * In regards to chronic kidney disease continue to monitor creatinine while on diuresis, baseline creatinine about 1.8-2 * Expected length of stay another 48 to 72 hours, will need discharge to subacute rehab * CODE STATUS is full code Time with Patient: Greater than 30
[2023-09-07 10:46] LABS: C Reactive Protein 0.8 mg/dL (<1.0)
[2023-09-07 11:26] LABS: Glucose,Whole Blood 132 mg/dL (70-110)
--- NOTE | 2023-09-07 13:43 | P.PN ---
Subjective Progress Note Date: 09/07/23 Principal diagnosis: Acute hypoxic respiratory failure secondary to acute systolic congestive heart failure and acute exacerbation of COPD with tracheobronchomalacia 78-year-old female seen in the emergency department, on August 26. She presented to the ER, on August 25, complaining of shortness of breath. The patient had been having shortness of breath for couple days prior to admission. In addition, he had a persistent cough, and lower extremity edema. The patient was evaluated, and was found to have CHF. The patient was initially placed on BiPAP, with settings of 16/5 and 40%. When I saw her in the emergency department, she was in room #5, and was on 4 L by nasal cannula. The patient was not getting any IV fluids. She is feeling a bit better. Her past medical history is positive for atrial fibrillation, asthma, breast cancer, heart failure, COPD, GERD, arthritis, and gout. The patient has had a pacemaker implanted as well. She was a former smoker in the past. White count 8.7, hemoglobin 11, hematocrit 37.3, and platelet count was 197,000. PT 12.6, INR 1.2, PTT is 31. Sodium 143, potassium 4.4, chlorides 106, CO2 31, BUN 39, creatinine 1.66. Her troponins were 0.053, 0.042, and 0.041. Her N-terminal proBNP was 16,700. She tested negative for influenza, RSV, and coronavirus. Chest x-ray showed the pacemaker, cardiomegaly, cephalization, bilateral pleural effusions. Progress note dated August 27, 2023. 78-year-old female seen in the emergency department, on August 26. The patient came into the ER on 25 August, complaining of shortness of breath. The patient was found to have congestive heart failure. The patient was placed on BiPAP. She is currently on 16/5 and 40%. She is not receiving any IV fluids. The patient is feeling better. White count is 9.5, hemoglobin 10.1, hematocrit 33.4, and a platelet count of 189,000. Sodium 142, potassium 4.5, chlorides 108, CO2 27, BUN 53, and creatinine 1.86. Glucose is 124. N-terminal proBNP was 18,100. Microbiology was pending are negative. No recent chest x-ray. On today's evaluation of 09/02/2023, the patient has no specific complaints. She is still on bronchodilators and steroids. I have taken her off the IV Solu- Medrol start the patient on prednisone burst taper. Noted following the bronchoscopy, the patient had significant improvement in respiratory status and the patient does not have any significant cough and congestion at this point in time. Less bronchospastic and wheezy. As for the results of the bronchial lavage, the final cultures has not resulted yet. No fever. No chills. The patient remains on oxygen at 3 L/min nasal cannula and oxygen saturation is in order of 97%.Awaiting the final results of the bronchial lavage. Remains on anticoagulation with Eliquis 5 mg twice a day. Rest of the medication remains unchanged. Tolerating her diet. 09/03/2023, the patient is doing well. No specific complaints. Cough and congestion is improved. Bronchoscopy was done and the cultures are essentially negative at this point in time and the patient is currently not receiving any form of antibiotics. She is a smoker spastic and wheezy and the patient was taken off the IV Solu-Medrol and started on a prednisone burst taper. She remains on DuoNeb updrafts. She is also on Lasix 40 mg p.o. twice a day she is taking Diamox for Metabolic alkalosis. No new labs available from today. COVID-19 testing was negative. Most recent blood sugars are 2013. She is currently on 3 days of O2 nasal cannula with a pulse ox of 91%. She is utiliz ing a BiPAP overnight and the patient is currently on 3 L and the patient has a home device and for obstructive sleep apnea that she is utilizing on outpatient basis. No altered mentation. No signs of any CO2 narcosis. No chest pain. She remains on anticoagulation with Eliquis. Patient was evaluated today on 09/04/2023, continues to have cough wheezing shortness of breath, cough is productive with thick phlegm, patient seems to be more bothered with her cough than anything else. Apparently the patient had a recent bronchoscopy, cultures were negative, but apparently she had tracheobronchomalacia, and she had copious amount of secretions suctioned and lavaged by Dr. Alonzo. I have a feeling that the patient may require another bronchoscopy, however will decide on this in the next 24 hours. In the meantime the patient remains on nasal cannula, intermittently on BiPAP overnight, she does have home device for obstructive sleep apnea. Patient remains on antibiotics, bronchodilators, and on Eliquis. Basic metabolic profile is relatively normal BUN is 74 creatinine 2.09 last chest x-ray was on 08/29/2023, and I am recommending a follow-up chest x-ray considering the patient remains quite symptomatic. Patient was reevaluated today on 09/05/23, continues to have productive cough, wheezing, shortness of breath, chest x-ray continues to show evidence of pulmonary edema. Patient felt better after she had bronchoscopy for 2 days, however her symptoms now are back as they were prior to bronchoscopy. Can get the report, patient had tracheobronchomalacia which seems to be a major issue for this patient. I am considering bronchoscopy if the patient does not improve in the next couple of days. In the meantime we will continue to hold, we will continue bronchodilators, increase her diuretics since her chest x-ray continues to show evidence of pulmonary edema, and the patient will be given Mucinex, chest PT, and a flutter valve. Cultures from the BAL were nondiagnostic. WBC count today is 8.2 hemoglobin 9.6, basic metabolic profile is normal BUN is 65 creatinine 1.64, improving compared to creatinine of 2.09 yesterday Patient was reevaluated today on 09/06/2023, patient is feeling better today, less cough less wheezing less shortness of breath, improving, hence I will hold on repeat bronchoscopy on this patient. Yesterday I increased her Lasix dose. Remains on bronchodilators, Mucinex, antibiotics, steroids, and chest PT. WBC count today is 11.3 hemoglobin 10.3 basic metabolic profile is normal bicarb is 37 BUN 58 creatinine 1.67 Reevaluate today on 09/07/2023, continues to slowly improve, definitely not any worse, patient is able to clear her secretions according to her today. Hence definitely she does not need repeat bronchoscopy. Remains on Lasix for her congestive heart failure, remains on antibiotics, Mucinex, bronchodilators, and steroids. Patient is definitely improving but rather slowly.Remains on 3 L nasal cannula. Objective - Vital Signs Vital signs: Vital Signs Temp 97.9 F 09/07/23 08:00 Pulse 103 H 09/07/23 12:49 Resp 20 09/07/23 08:00 BP 98/68 09/07/23 08:00 Pulse Ox 96 09/07/23 09:40 FiO2 40 09/07/23 04:02 Intake & Output 09/06/23 09/07/23 09/07/23 18:59 06:59 18:59 Intake Total 180 20 128 Output Total 250 950 200 Balance -70 -930 -72 Intake: IV 20 10 Invasive Line 4 20 10 Oral 180 0 118 Output: Urine 250 950 200 Other: Voiding Method Diaper Diaper Diaper Incontinent Incontinent Incontinent External Catheter External Catheter External Catheter # Voids 2 # Bowel Movements 1 - Exam General: The patient is awake and alert, in no distress, and does not appear acutely ill. On 3 L nasal cannula Skin: Skin is warm and dry and no rashes or lesions are noted. Eye: Pupils are equal, round and reactive to light, extra-ocular movements are intact; there is normal conjunctiva bilaterally. Ears, nose, mouth and throat: There are moist mucous membranes and no oral lesions. Neck: The neck is supple, there is no tenderness or JVD. Cardiovascular: There is a regular rate and rhythm. No murmur, rub or gallop is appreciated. Respiratory: Continues to have intermittent wheezing on physical examination Gastrointestinal: Soft, non-distended, non-tender abdomen without masses or organomegaly noted. There is no rebound or guarding present. Bowel sounds are unremarkable. Back: There is no tenderness to palpation in the midline. There is no obvious deformity. Musculoskeletal: Normal ROM, no tenderness, There is no pedal edema. There is no calf tenderness or swelling. No cords were appreciated. Neurological: CN II-XII intact, Cranial nerves III through XII are intact. There are no obvious motor or sensory deficits. Coordination appears grossly intact. Speech is normal. Psychiatric: Cooperative, appropriate mood & affect, normal judgment. - Labs CBC & Chem 7: 09/07/23 09:02 09/07/23 09:02 Labs: Abnormal Lab Results - Last 24 Hours (Table) 09/06/23 09/06/23 09/07/23 Range/Units 16:15 19:54 09:02 WBC 16.4 H (3.8-10.6) k/uL RBC 3.63 L (3.80-5.40) m/uL Hgb 10.0 L (11.4-16.0) gm/dL MCHC 28.9 L (31.0-37.0) g/dL RDW 16.7 H (11.5-15.5) % Plt Count 148 L (150-450) k/uL Carbon Dioxide (22-30) mmol/L BUN (7-17) mg/dL Creatinine (0.52-1.04) mg/dL Glucose (74-99) mg/dL POC Glucose (mg/dL) 330 H 252 H (70-110) mg/dL 09/07/23 09/07/23 Range/Units 09:02 11:25 WBC (3.8-10.6) k/uL RBC (3.80-5.40) m/uL Hgb (11.4-16.0) gm/dL MCHC (31.0-37.0) g/dL RDW (11.5-15.5) % Plt Count (150-450) k/uL Carbon Dioxide 33 H (22-30) mmol/L BUN 58 H (7-17) mg/dL Creatinine 1.52 H (0.52-1.04) mg/dL Glucose 108 H (74-99) mg/dL POC Glucose (mg/dL) 132 H (70-110) mg/dL Assessment and Plan Assessment: Impression: Acute on chronic hypoxemic respiratory failure secondary to systolic CHF/COPD exacerbation. The patient also has diffuse tracheobronchitis, mucous plugging and severe tracheobronchomalacia and the patient is post bronchoscopy and t herapeutic airway suctioning and a bronchial lavage. Patient is denying any significant improvement today in spite of her recent bronchoscopy and BAL. Severe tracheobronchitis with mucous plugging and diffuse mucosal inflammatory changes, therapeutic airway suctioning was done and copious amount of rest or secretions were suctioned out and the cultures are all negative, may have to consider repeat bronchoscopy on this patient if she continues to be symptomatic Severe COPD and the patient has limited on trilogy looked on outpatient basis in addition to O2. She is an ex-smoker and she quit smoking several years back. History of atrial fibrillation, status post pacemaker implantation. The patient is maintained on long-term anticoagulation with Eliquis Acute on chronic systolic heart failure with ejection fraction of 35 to 40% and secondary pulmonary hypertension History of severe pulmonary hypertension. History of valvular heart disease. The patient has moderate degree of mitral regurgitation and severe tricuspid regurgitation and severe pulm hypertension. Chronic stage III kidney disease History of breast cancer, with previous lumpectomy on the right. Gastroesophageal reflux disease. History of gout. Prior history of tobacco use. History of depression. Recommendation: Continue Mucinex Continue flutter valve and chest PT Continue Lasix 40 mg 3 times daily, renal function is actually improving creatinine today is 1.52 compared to 2.09 few days ago Continue present supportive care measures Continue antibiotics bronchodilators and steroids Continue oxygen and titrate accordingly Continue BiPAP at night Continue eliquis Plans for bronchoscopy this week at least Will continue to follow Time with Patient: Less than 30
[2023-09-07] MEDS: POTASSIUM CHLORIDE ER 20 MEQ TAB.ER PO STA (16:32)
[2023-09-07 16:43] LABS: Glucose,Whole Blood 262 mg/dL (70-110)
[2023-09-07 19:43] LABS: Glucose,Whole Blood 226 mg/dL (70-110)
[2023-09-08 06:11] LABS: Glucose,Whole Blood 91 mg/dL (70-110)
[2023-09-08 09:19] LABS: Anisocytosis Slight; HCT 35.6 % (34.0-46.0); HGB 10.3 gm/dL (11.4-16.0); Hypochromasia Marked; MCH 27.7 pg (25.0-35.0); MCHC 28.9 g/dL (31.0-37.0); MCV 95.8 fL (80.0-100.0); Mean Platelet Volume 10.9; Platelet Count 140 k/uL (150-450); RBC 3.72 m/uL (3.80-5.40); RDW 16.4 % (11.5-15.5); WBC 16.5 k/uL (3.8-10.6)
[2023-09-08 09:41] LABS: African American GFR (CKD) 37 (>60 ml/min/1.73 sqM); Anion Gap 2 mmol/L; Blood Urea Nitrogen 51 mg/dL (7-17); Calcium 8.8 mg/dL (8.4-10.2); Carbon Dioxide 34 mmol/L (22-30); Chloride 104 mmol/L (98-107); Glucose 139 mg/dL (74-99); Non-African American GFR(CKD) 32 (>60 ml/min/1.73 sqM); Potassium 3.6 mmol/L (3.5-5.1); Sodium 140 mmol/L (137-145)
[2023-09-08 11:55] LABS: Glucose,Whole Blood 195 mg/dL (70-110)
--- NOTE | 2023-09-08 14:31 | P.PN ---
Subjective Progress Note Date: 09/08/23 Principal diagnosis: Acute hypoxic respiratory failure secondary to acute systolic congestive heart failure and acute exacerbation of COPD with tracheobronchomalacia 78-year-old female seen in the emergency department, on August 26. She presented to the ER, on August 25, complaining of shortness of breath. The patient had been having shortness of breath for couple days prior to admission. In addition, he had a persistent cough, and lower extremity edema. The patient was evaluated, and was found to have CHF. The patient was initially placed on BiPAP, with settings of 16/5 and 40%. When I saw her in the emergency department, she was in room #5, and was on 4 L by nasal cannula. The patient was not getting any IV fluids. She is feeling a bit better. Her past medical history is positive for atrial fibrillation, asthma, breast cancer, heart failure, COPD, GERD, arthritis, and gout. The patient has had a pacemaker implanted as well. She was a former smoker in the past. White count 8.7, hemoglobin 11, hematocrit 37.3, and platelet count was 197,000. PT 12.6, INR 1.2, PTT is 31. Sodium 143, potassium 4.4, chlorides 106, CO2 31, BUN 39, creatinine 1.66. Her troponins were 0.053, 0.042, and 0.041. Her N-terminal proBNP was 16,700. She tested negative for influenza, RSV, and coronavirus. Chest x-ray showed the pacemaker, cardiomegaly, cephalization, bilateral pleural effusions. Progress note dated August 27, 2023. 78-year-old female seen in the emergency department, on August 26. The patient came into the ER on 25 August, complaining of shortness of breath. The patient was found to have congestive heart failure. The patient was placed on BiPAP. She is currently on 16/5 and 40%. She is not receiving any IV fluids. The patient is feeling better. White count is 9.5, hemoglobin 10.1, hematocrit 33.4, and a platelet count of 189,000. Sodium 142, potassium 4.5, chlorides 108, CO2 27, BUN 53, and creatinine 1.86. Glucose is 124. N-terminal proBNP was 18,100. Microbiology was pending are negative. No recent chest x-ray. On today's evaluation of 09/02/2023, the patient has no specific complaints. She is still on bronchodilators and steroids. I have taken her off the IV Solu- Medrol start the patient on prednisone burst taper. Noted following the bronchoscopy, the patient had significant improvement in respiratory status and the patient does not have any significant cough and congestion at this point in time. Less bronchospastic and wheezy. As for the results of the bronchial lavage, the final cultures has not resulted yet. No fever. No chills. The patient remains on oxygen at 3 L/min nasal cannula and oxygen saturation is in order of 97%.Awaiting the final results of the bronchial lavage. Remains on anticoagulation with Eliquis 5 mg twice a day. Rest of the medication remains unchanged. Tolerating her diet. 09/03/2023, the patient is doing well. No specific complaints. Cough and congestion is improved. Bronchoscopy was done and the cultures are essentially negative at this point in time and the patient is currently not receiving any form of antibiotics. She is a smoker spastic and wheezy and the patient was taken off the IV Solu-Medrol and started on a prednisone burst taper. She remains on DuoNeb updrafts. She is also on Lasix 40 mg p.o. twice a day she is taking Diamox for Metabolic alkalosis. No new labs available from today. COVID-19 testing was negative. Most recent blood sugars are 2013. She is currently on 3 days of O2 nasal cannula with a pulse ox of 91%. She is utiliz ing a BiPAP overnight and the patient is currently on 3 L and the patient has a home device and for obstructive sleep apnea that she is utilizing on outpatient basis. No altered mentation. No signs of any CO2 narcosis. No chest pain. She remains on anticoagulation with Eliquis. Patient was evaluated today on 09/04/2023, continues to have cough wheezing shortness of breath, cough is productive with thick phlegm, patient seems to be more bothered with her cough than anything else. Apparently the patient had a recent bronchoscopy, cultures were negative, but apparently she had tracheobronchomalacia, and she had copious amount of secretions suctioned and lavaged by Dr. Alonzo. I have a feeling that the patient may require another bronchoscopy, however will decide on this in the next 24 hours. In the meantime the patient remains on nasal cannula, intermittently on BiPAP overnight, she does have home device for obstructive sleep apnea. Patient remains on antibiotics, bronchodilators, and on Eliquis. Basic metabolic profile is relatively normal BUN is 74 creatinine 2.09 last chest x-ray was on 08/29/2023, and I am recommending a follow-up chest x-ray considering the patient remains quite symptomatic. Patient was reevaluated today on 09/05/23, continues to have productive cough, wheezing, shortness of breath, chest x-ray continues to show evidence of pulmonary edema. Patient felt better after she had bronchoscopy for 2 days, however her symptoms now are back as they were prior to bronchoscopy. Can get the report, patient had tracheobronchomalacia which seems to be a major issue for this patient. I am considering bronchoscopy if the patient does not improve in the next couple of days. In the meantime we will continue to hold, we will continue bronchodilators, increase her diuretics since her chest x-ray continues to show evidence of pulmonary edema, and the patient will be given Mucinex, chest PT, and a flutter valve. Cultures from the BAL were nondiagnostic. WBC count today is 8.2 hemoglobin 9.6, basic metabolic profile is normal BUN is 65 creatinine 1.64, improving compared to creatinine of 2.09 yesterday Patient was reevaluated today on 09/06/2023, patient is feeling better today, less cough less wheezing less shortness of breath, improving, hence I will hold on repeat bronchoscopy on this patient. Yesterday I increased her Lasix dose. Remains on bronchodilators, Mucinex, antibiotics, steroids, and chest PT. WBC count today is 11.3 hemoglobin 10.3 basic metabolic profile is normal bicarb is 37 BUN 58 creatinine 1.67 Reevaluate today on 09/07/2023, continues to slowly improve, definitely not any worse, patient is able to clear her secretions according to her today. Hence definitely she does not need repeat bronchoscopy. Remains on Lasix for her congestive heart failure, remains on antibiotics, Mucinex, bronchodilators, and steroids. Patient is definitely improving but rather slowly.Remains on 3 L nasal cannula. Reevaluate today on 09/08/2023, patient is steadily improving but slowly. Less cough less wheezing less shortness of breath. Remains on bronchodilators, steroids, antibiotics, and diuretics. Continues to have rhonchi and wheezing on forced expiratory maneuver, that may never change considering the patient has severe tracheobronchomalacia Objective - Vital Signs Vital signs: Vital Signs Temp 98.2 F 09/08/23 08:00 Pulse 106 H 09/08/23 12:49 Resp 18 09/08/23 08:00 BP 96/62 09/08/23 08:00 Pulse Ox 96 09/08/23 09:28 FiO2 40 09/08/23 04:23 Intake & Output 09/07/23 09/08/23 09/08/23 18:59 06:59 18:59 Intake Total 378 240 Output Total 950 1200 Balance -572 -1200 240 Intake: IV 20 Invasive Line 4 20 Oral 358 240 Output: Urine 950 1200 Other: Voiding Method Diaper External Catheter External Catheter Incontinent External Catheter - Exam General: The patient is awake and alert, in no distress, and does not appear acutely ill. On 3 L nasal cannula Skin: Skin is warm and dry and no rashes or lesions are noted. Eye: Pupils are equal, round and reactive to light, extra-ocular movements are intact; there is normal conjunctiva bilaterally. Ears, nose, mouth and throat: There are moist mucous membranes and no oral lesions. Neck: The neck is supple, there is no tenderness or JVD. Cardiovascular: There is a regular rate and rhythm. No murmur, rub or gallop is appreciated. Respiratory: Wheezing on forced expiratory maneuver Gastrointestinal: Soft, non-distended, non-tender abdomen without masses or or ganomegaly noted. There is no rebound or guarding present. Bowel sounds are unremarkable. Back: There is no tenderness to palpation in the midline. There is no obvious deformity. Musculoskeletal: Normal ROM, no tenderness, There is no pedal edema. There is no calf tenderness or swelling. No cords were appreciated. Neurological: CN II-XII intact, Cranial nerves III through XII are intact. The re are no obvious motor or sensory deficits. Coordination appears grossly intact. Speech is normal. Psychiatric: Cooperative, appropriate mood & affect, normal judgment. - Labs CBC & Chem 7: 09/08/23 08:07 09/08/23 08:07 Labs: Abnormal Lab Results - Last 24 Hours (Table) 09/07/23 09/07/23 09/08/23 Range/Units 16:42 19:42 08:07 WBC 16.5 H (3.8-10.6) k/uL RBC 3.72 L (3.80-5.40) m/uL Hgb 10.3 L (11.4-16.0) gm/dL MCHC 28.9 L (31.0-37.0) g/dL RDW 16.4 H (11.5-15.5) % Plt Count 140 L (150-450) k/uL Carbon Dioxide (22-30) mmol/L BUN (7-17) mg/dL Creatinine (0.52-1.04) mg/dL Glucose (74-99) mg/dL POC Glucose (mg/dL) 262 H 226 H (70-110) mg/dL 09/08/23 09/08/23 Range/Units 08:07 11:54 WBC (3.8-10.6) k/uL RBC (3.80-5.40) m/uL Hgb (11.4-16.0) gm/dL MCHC (31.0-37.0) g/dL RDW (11.5-15.5) % Plt Count (150-450) k/uL Carbon Dioxide 34 H (22-30) mmol/L BUN 51 H (7-17) mg/dL Creatinine 1.54 H (0.52-1.04) mg/dL Glucose 139 H (74-99) mg/dL POC Glucose (mg/dL) 195 H (70-110) mg/dL Assessment and Plan Assessment: Impression: Acute on chronic hypoxemic respiratory failure secondary to systolic CHF/COPD exacerbation. The patient also has diffuse tracheobronchitis, mucous plugging and severe tracheobronchomalacia and the patient is post bronchoscopy and therapeutic airway suctioning and a bronchial lavage. Patient is denying any significant improvement today in spite of her recent bronchoscopy and BAL. Severe tracheobronchitis with mucous plugging and diffuse mucosal inflammatory changes, therapeutic airway suctioning was done and copious amount of rest or secretions were suctioned out and the cultures are all negative, may have to consider repeat bronchoscopy on this patient if she continues to be symptomatic Severe COPD and the patient has limited on trilogy looked on outpatient basis in addition to O2. She is an ex-smoker and she quit smoking several years back. History of atrial fibrillation, status post pacemaker implantation. The patient is maintained on long-term anticoagulation with Eliquis Acute on chronic systolic heart failure with ejection fraction of 35 to 40% and secondary pulmonary hypertension History of severe pulmonary hypertension. History of valvular heart disease. The patient has moderate degree of mitral regurgitation and severe tricuspid regurgitation and severe pulm hypertension. Chronic stage III kidney disease History of breast cancer, with previous lumpectomy on the right. Gastroesophageal reflux disease. History of gout. Prior history of tobacco use. History of depression. Recommendation: Continue Mucinex Continue flutter valve and chest PT Continue Lasix Continue present supportive care measures Continue antibiotics bronchodilators and steroids Continue oxygen and titrate accordingly Continue BiPAP at night Continue eliquis Patient is improving but rather slowly Will continue to follow Time with Patient: Less than 30
[2023-09-08 16:47] LABS: Glucose,Whole Blood 254 mg/dL (70-110)
--- NOTE | 2023-09-08 18:29 | P.PN ---
Subjective Progress Note Date: 09/08/23 78-year-old patient with past medical history significant for chronic congestive heart failure systolic dysfunction, history of atrial fibrillation, s/p pacemaker in place, chronic kidney disease, history of breast cancer s/p lumpectomy, chronic hypoxic respiratory failure on home oxygen 3 L at baseline h istory of obstructive lung disease presents to the emergency department with complaints of difficulty in breathing. Patient was admitted early in June with similar presentation and was noted to have CHF exacerbation. Patient states she had significant shortness of breath cough, significant anxiety. At time of presentation workup initiated in ER included serum chemistry which showed sodium 143 potassium 4.4, dioxide 31 BUN 39 creatinine 1.66, CBC showed WBC 8.7 hemoglobin 11 hematocrit 37 platelet count of 197 chest x-ray was obtained which showed significant amount of bilateral opacities and effusion. [place] [address], serial troponins were obtained which was 0.053, 0.042, 0.041 INR was 1.2. Patient tested negative for influenza COVID and RSV. At the time of presentation in ER patient was noted to be in distress and was placed on BiPAP gradually weaned down to nasal cannula Objective - Vital Signs Vital signs: Vital Signs Temp 98.2 F 09/08/23 08:00 Pulse 104 H 09/08/23 10:00 Resp 18 09/08/23 08:00 BP 96/62 09/08/23 08:00 Pulse Ox 96 09/08/23 09:28 FiO2 40 09/08/23 04:23 Intake & Output 09/07/23 09/08/23 09/08/23 18:59 06:59 18:59 Intake Total 378 240 Output Total 950 1200 Balance -572 -1200 240 Intake: IV 20 Invasive Line 4 20 Oral 358 240 Output: Urine 950 1200 Other: Voiding Method Diaper External Catheter External Catheter Incontinent External Catheter - Exam GENERAL: The patient is alert and oriented x3, ill appearance, nasal cannula in place HEENT: Pupils are round and equally reacting to light. EOMI. CARDIOVASCULAR: S1 and S2 present. Irregular PULMONARY: Decreased breath sounds bilaterally, rhonchi audible ABDOMEN: Soft, nontender, nondistended, normoactive bowel sounds. No palpable o rganomegaly. MUSCULOSKELETAL: No joint swelling or deformity. EXTREMITIES: Lower extremity edema present NEUROLOGICAL: Gross neurological examination did not reveal any focal deficits. - Labs CBC & Chem 7: 09/08/23 08:07 09/08/23 08:07 Labs: Abnormal Lab Results - Last 24 Hours (Table) 09/07/23 09/07/23 09/08/23 Range/Units 16:42 19:42 08:07 WBC 16.5 H (3.8-10.6) k/uL RBC 3.72 L (3.80-5.40) m/uL Hgb 10.3 L (11.4-16.0) gm/dL MCHC 28.9 L (31.0-37.0) g/dL RDW 16.4 H (11.5-15.5) % Plt Count 140 L (150-450) k/uL Carbon Dioxide (22-30) mmol/L BUN (7-17) mg/dL Creatinine (0.52-1.04) mg/dL Glucose (74-99) mg/dL POC Glucose (mg/dL) 262 H 226 H (70-110) mg/dL 09/08/23 Range/Units 08:07 WBC (3.8-10.6) k/uL RBC (3.80-5.40) m/uL Hgb (11.4-16.0) gm/dL MCHC (31.0-37.0) g/dL RDW (11.5-15.5) % Plt Count (150-450) k/uL Carbon Dioxide 34 H (22-30) mmol/L BUN 51 H (7-17) mg/dL Creatinine 1.54 H (0.52-1.04) mg/dL Glucose 139 H (74-99) mg/dL POC Glucose (mg/dL) (70-110) mg/dL Assessment and Plan Assessment: * Acute on chronic hypoxic respiratory failure * Acute on chronic exacerbation of congestive heart failure systolic dysfunction ejection fraction 35% * History of atrial fibrillation s/p pacemaker in place * History of pulmonary hypertension * History of COPD with acute exacerbation with tracheobronchitis * Gastroesophageal reflux disease * History of severe pulmonary hypertension * Chronic kidney disease * In regards to CHF exacerbation continue patient on Lasix, cardiology consulted, appreciate recommendations continue to monitor intake and output. Follow-up on renal profile while on diuresis * In Regards to acute on chronic hypoxic respiratory failure, multifactorial likely secondary to obstructive lung disease and CHF. Continue breathing treatments, completed azithromycin, transition to oral prednisone * In regards to history of A-fib continue telemonitoring optimize electrolytes continue rate control medications including metoprolol, continue Eliquis * In regards to history of pulmonary hypertension, pulmonary medicine consulted appreciate input, s/p bronchoscopy, bronchoalveolar lavage reviewed, pulmonary following * In regards to COPD exacerbation, s/p bronchoscopy, culture positive for cytomegalovirus as well as rhinovirus * In regards to chronic kidney disease continue to monitor creatinine while on diuresis, baseline creatinine about 1.8-2 * Expected length of stay another 48 to 72 hours, will need discharge to subacute rehab * CODE STATUS is full code
[2023-09-08 20:07] LABS: Glucose,Whole Blood 179 mg/dL (70-110)
[2023-09-09 06:21] LABS: Glucose,Whole Blood 109 mg/dL (70-110)
[2023-09-09 09:41] LABS: Anisocytosis Slight; Basophils # (A) 0.3 k/uL (0-0.2); Basophils % (A) 2 %; Eosinophils # (A) 0.1 k/uL (0-0.7); Eosinophils % (A) 1 %; HCT 35.5 % (34.0-46.0); HGB 10.8 gm/dL (11.4-16.0); Hypochromasia Marked; Lymphocytes # (A) 0.3 k/uL (1.0-4.8); Lymphocytes % (A) 2 %; MCH 28.5 pg (25.0-35.0); MCHC 30.4 g/dL (31.0-37.0); MCV 93.8 fL (80.0-100.0); Mean Platelet Volume 11.3; Monocytes # (A) 0.6 k/uL (0-1.0); Monocytes % (A) 4 %; Neutrophils # (A) 11.9 k/uL (1.3-7.7); Neutrophils % (A) 90 %; Platelet Count 112 k/uL (150-450); RBC 3.79 m/uL (3.80-5.40); RDW 16.9 % (11.5-15.5); WBC 13.3 k/uL (3.8-10.6)
[2023-09-09 10:27] LABS: African American GFR (CKD) 36 (>60 ml/min/1.73 sqM); Anion Gap 3 mmol/L; Blood Urea Nitrogen 54 mg/dL (7-17); Calcium 8.8 mg/dL (8.4-10.2); Carbon Dioxide 34 mmol/L (22-30); Chloride 103 mmol/L (98-107); Glucose 81 mg/dL (74-99); Non-African American GFR(CKD) 31 (>60 ml/min/1.73 sqM); Sodium 140 mmol/L (137-145)
[2023-09-09 10:46] LABS: Potassium 3.6 mmol/L (3.5-5.1)
[2023-09-09 11:47] LABS: Glucose,Whole Blood 156 mg/dL (70-110)
--- NOTE | 2023-09-09 14:48 | P.PN ---
Subjective Progress Note Date: 09/09/23 Principal diagnosis: Acute hypoxic respiratory failure secondary to acute systolic congestive heart failure and acute exacerbation of COPD with tracheobronchomalacia 78-year-old female seen in the emergency department, on August 26. She presented to the ER, on August 25, complaining of shortness of breath. The patient had been having shortness of breath for couple days prior to admission. In addition, he had a persistent cough, and lower extremity edema. The patient was evaluated, and was found to have CHF. The patient was initially placed on BiPAP, with settings of 16/5 and 40%. When I saw her in the emergency department, she was in room #5, and was on 4 L by nasal cannula. The patient was not getting any IV fluids. She is feeling a bit better. Her past medical history is positive for atrial fibrillation, asthma, breast cancer, heart failure, COPD, GERD, arthritis, and gout. The patient has had a pacemaker implanted as well. She was a former smoker in the past. White count 8.7, hemoglobin 11, hematocrit 37.3, and platelet count was 197,000. PT 12.6, INR 1.2, PTT is 31. Sodium 143, potassium 4.4, chlorides 106, CO2 31, BUN 39, creatinine 1.66. Her troponins were 0.053, 0.042, and 0.041. Her N-terminal proBNP was 16,700. She tested negative for influenza, RSV, and coronavirus. Chest x-ray showed the pacemaker, cardiomegaly, cephalization, bilateral pleural effusions. Progress note dated August 27, 2023. 78-year-old female seen in the emergency department, on August 26. The patient came into the ER on 25 August, complaining of shortness of breath. The patient was found to have congestive heart failure. The patient was placed on BiPAP. She is currently on 16/5 and 40%. She is not receiving any IV fluids. The patient is feeling better. White count is 9.5, hemoglobin 10.1, hematocrit 33.4, and a platelet count of 189,000. Sodium 142, potassium 4.5, chlorides 108, CO2 27, BUN 53, and creatinine 1.86. Glucose is 124. N-terminal proBNP was 18,100. Microbiology was pending are negative. No recent chest x-ray. On today's evaluation of 09/02/2023, the patient has no specific complaints. She is still on bronchodilators and steroids. I have taken her off the IV Solu- Medrol start the patient on prednisone burst taper. Noted following the bronchoscopy, the patient had significant improvement in respiratory status and the patient does not have any significant cough and congestion at this point in time. Less bronchospastic and wheezy. As for the results of the bronchial lavage, the final cultures has not resulted yet. No fever. No chills. The patient remains on oxygen at 3 L/min nasal cannula and oxygen saturation is in order of 97%.Awaiting the final results of the bronchial lavage. Remains on anticoagulation with Eliquis 5 mg twice a day. Rest of the medication remains unchanged. Tolerating her diet. 09/03/2023, the patient is doing well. No specific complaints. Cough and congestion is improved. Bronchoscopy was done and the cultures are essentially negative at this point in time and the patient is currently not receiving any form of antibiotics. She is a smoker spastic and wheezy and the patient was taken off the IV Solu-Medrol and started on a prednisone burst taper. She remains on DuoNeb updrafts. She is also on Lasix 40 mg p.o. twice a day she is taking Diamox for Metabolic alkalosis. No new labs available from today. COVID-19 testing was negative. Most recent blood sugars are 2013. She is currently on 3 days of O2 nasal cannula with a pulse ox of 91%. She is utiliz ing a BiPAP overnight and the patient is currently on 3 L and the patient has a home device and for obstructive sleep apnea that she is utilizing on outpatient basis. No altered mentation. No signs of any CO2 narcosis. No chest pain. She remains on anticoagulation with Eliquis. Patient was evaluated today on 09/04/2023, continues to have cough wheezing shortness of breath, cough is productive with thick phlegm, patient seems to be more bothered with her cough than anything else. Apparently the patient had a recent bronchoscopy, cultures were negative, but apparently she had tracheobronchomalacia, and she had copious amount of secretions suctioned and lavaged by Dr. Alonzo. I have a feeling that the patient may require another bronchoscopy, however will decide on this in the next 24 hours. In the meantime the patient remains on nasal cannula, intermittently on BiPAP overnight, she does have home device for obstructive sleep apnea. Patient remains on antibiotics, bronchodilators, and on Eliquis. Basic metabolic profile is relatively normal BUN is 74 creatinine 2.09 last chest x-ray was on 08/29/2023, and I am recommending a follow-up chest x-ray considering the patient remains quite symptomatic. Patient was reevaluated today on 09/05/23, continues to have productive cough, wheezing, shortness of breath, chest x-ray continues to show evidence of pulmonary edema. Patient felt better after she had bronchoscopy for 2 days, however her symptoms now are back as they were prior to bronchoscopy. Can get the report, patient had tracheobronchomalacia which seems to be a major issue for this patient. I am considering bronchoscopy if the patient does not improve in the next couple of days. In the meantime we will continue to hold, we will continue bronchodilators, increase her diuretics since her chest x-ray continues to show evidence of pulmonary edema, and the patient will be given Mucinex, chest PT, and a flutter valve. Cultures from the BAL were nondiagnostic. WBC count today is 8.2 hemoglobin 9.6, basic metabolic profile is normal BUN is 65 creatinine 1.64, improving compared to creatinine of 2.09 yesterday Patient was reevaluated today on 09/06/2023, patient is feeling better today, less cough less wheezing less shortness of breath, improving, hence I will hold on repeat bronchoscopy on this patient. Yesterday I increased her Lasix dose. Remains on bronchodilators, Mucinex, antibiotics, steroids, and chest PT. WBC count today is 11.3 hemoglobin 10.3 basic metabolic profile is normal bicarb is 37 BUN 58 creatinine 1.67 Reevaluate today on 09/07/2023, continues to slowly improve, definitely not any worse, patient is able to clear her secretions according to her today. Hence definitely she does not need repeat bronchoscopy. Remains on Lasix for her congestive heart failure, remains on antibiotics, Mucinex, bronchodilators, and steroids. Patient is definitely improving but rather slowly.Remains on 3 L nasal cannula. Reevaluate today on 09/08/2023, patient is steadily improving but slowly. Less cough less wheezing less shortness of breath. Remains on bronchodilators, steroids, antibiotics, and diuretics. Continues to have rhonchi and wheezing on forced expiratory maneuver, that may never change considering the patient has severe tracheobronchomalacia Patient was reevaluated today on 09/09/2023, patient feels better today, breat april easier, she is undergoing chest physical therapy during my evaluation. Less cough less wheezing less shortness of breath, hence I believe the patient should be considered for discharge hopefully in the next 24 hours. Labs today including CBC and basic metabolic profile were noted to be unremarkable, creatinine 1.57 basically within her normal range Objective - Vital Signs Vital signs: Vital Signs Temp 98.5 F 09/09/23 08:00 Pulse 104 H 09/09/23 12:00 Resp 16 09/09/23 12:00 BP 131/73 09/09/23 12:00 Pulse Ox 93 L 09/09/23 12:00 FiO2 40 09/09/23 04:00 Intake & Output 09/08/23 09/09/23 09/09/23 18:59 06:59 18:59 Intake Total 480 358 Output Total 300 600 300 Balance 180 -600 58 Intake: Oral 480 358 Output: Urine 300 600 300 Other: Voiding Method External Catheter External Catheter External Catheter - Exam General: The patient is awake and alert, in no distress, and does not appear acutely ill. On 3 L nasal cannula Skin: Skin is warm and dry and no rashes or lesions are noted. Eye: Pupils are equal, round and reactive to light, extra-ocular movements are intact; there is normal conjunctiva bilaterally. Ears, nose, mouth and throat: There are moist mucous membranes and no oral lesions. Neck: The neck is supple, there is no tenderness or JVD. Cardiovascular: There is a regular rate and rhythm. No murmur, rub or gallop is appreciated. Respiratory: Minimal wheezing on forced expiratory maneuver, much improved compared to the last few days Gastrointestinal: Soft, non-distended, non-tender abdomen without masses or organomegaly noted. There is no rebound or guarding present. Bowel sounds are unremarkable. Back: There is no tenderness to palpation in the midline. There is no obvious deformity. Musculoskeletal: Normal ROM, no tenderness, There is no pedal edema. There is no calf tenderness or swelling. No cords were appreciated. Neurological: CN II-XII intact, Cranial nerves III through XII are intact. There are no obvious motor or sensory deficits. Coordination appears grossly i ntact. Speech is normal. Psychiatric: Cooperative, appropriate mood & affect, normal judgment. - Labs CBC & Chem 7: 09/09/23 07:08 09/09/23 07:08 Labs: Abnormal Lab Results - Last 24 Hours (Table) 09/08/23 09/08/23 09/09/23 Range/Units 16:44 20:05 07:08 WBC 13.3 H (3.8-10.6) k/uL RBC 3.79 L (3.80-5.40) m/uL Hgb 10.8 L (11.4-16.0) gm/dL MCHC 30.4 L (31.0-37.0) g/dL RDW 16.9 H (11.5-15.5) % Plt Count 112 L (150-450) k/uL Neutrophils # 11.9 H (1.3-7.7) k/uL Lymphocytes # 0.3 L (1.0-4.8) k/uL Basophils # 0.3 H (0-0.2) k/uL Carbon Dioxide (22-30) mmol/L BUN (7-17) mg/dL Creatinine (0.52-1.04) mg/dL POC Glucose (mg/dL) 254 H 179 H (70-110) mg/dL 09/09/23 09/09/23 Range/Units 07:08 11:46 WBC (3.8-10.6) k/uL RBC (3.80-5.40) m/uL Hgb (11.4-16.0) gm/dL MCHC (31.0-37.0) g/dL RDW (11.5-15.5) % Plt Count (150-450) k/uL Neutrophils # (1.3-7.7) k/uL Lymphocytes # (1.0-4.8) k/uL Basophils # (0-0.2) k/uL Carbon Dioxide 34 H (22-30) mmol/L BUN 54 H (7-17) mg/dL Creatinine 1.57 H (0.52-1.04) mg/dL POC Glucose (mg/dL) 156 H (70-110) mg/dL Microbiology - Last 24 Hours (Table) 08/31/23 15:51 Fungal Culture - Preliminary Bronchoalviolar Lavage - Left Assessment and Plan Assessment: Impression: Acute on chronic hypoxemic respiratory failure secondary to systolic CHF/COPD exacerbation. The patient also has diffuse tracheobronchitis, mucous plugging and severe tracheobronchomalacia and the patient is post bronchoscopy and therapeutic airway suctioning and a bronchial lavage. Patient is denying any significant improvement today in spite of her recent bronchoscopy and BAL. Severe tracheobronchitis with mucous plugging and diffuse mucosal inflammatory changes, therapeutic airway suctioning was done and copious amount of rest or secretions were suctioned out and the cultures are all negative, may have to consider repeat bronchoscopy on this patient if she continues to be symptomatic Severe COPD and the patient has limited on trilogy looked on outpatient basis in addition to O2. She is an ex-smoker and she quit smoking several years back. History of atrial fibrillation, status post pacemaker implantation. The patient is maintained on long-term anticoagulation with Eliquis Acute on chronic systolic heart failure with ejection fraction of 35 to 40% and secondary pulmonary hypertension History of severe pulmonary hypertension. History of valvular heart disease. The patient has moderate degree of mitral regurgitation and severe tricuspid regurgitation and severe pulm hypertension. Chronic stage III kidney disease History of breast cancer, with previous lumpectomy on the right. Gastroesophageal reflux disease. History of gout. Prior history of tobacco use. History of depression. Recommendation: Continue Mucinex Continue flutter valve and chest PT Continue Lasix Continue present supportive care measures Continue antibiotics bronchodilators and steroids Continue oxygen and titrate accordingly Continue BiPAP at night Continue eliquis Patient is improving, consider discharge planning in the next 24 hours Will continue to follow Time with Patient: Less than 30
[2023-09-09 16:44] LABS: Glucose,Whole Blood 293 mg/dL (70-110)
--- NOTE | 2023-09-09 19:25 | P.PN ---
Subjective Progress Note Date: 09/09/23 78-year-old patient with past medical history significant for chronic congestive heart failure systolic dysfunction, history of atrial fibrillation, s/p pacemaker in place, chronic kidney disease, history of breast cancer s/p lumpectomy, chronic hypoxic respiratory failure on home oxygen 3 L at baseline h istory of obstructive lung disease presents to the emergency department with complaints of difficulty in breathing. Patient was admitted early in June with similar presentation and was noted to have CHF exacerbation. Patient states she had significant shortness of breath cough, significant anxiety. At time of presentation workup initiated in ER included serum chemistry which showed sodium 143 potassium 4.4, dioxide 31 BUN 39 creatinine 1.66, CBC showed WBC 8.7 hemoglobin 11 hematocrit 37 platelet count of 197 chest x-ray was obtained which showed significant amount of bilateral opacities and effusion. [place] [address], serial troponins were obtained which was 0.053, 0.042, 0.041 INR was 1.2. Patient tested negative for influenza COVID and RSV. At the time of presentation in ER patient was noted to be in distress and was placed on BiPAP gradually weaned down to nasal cannula 09/09/2023 -- patient is seen and evaluated in room at bedside, feels better today, breathing easier, she is undergoing chest physical therapy during my evaluation. Less cough less wheezing less shortness of breath, hence I believe the patient should be considered for possible discharge in next 24 hours per pulmonary recommendations Labs today including CBC and basic metabolic profile were noted to be unremarkable, creatinine 1.57 basically within her normal range Continue flutter valve and chest PT Continue Lasix; antibiotics bronchodilators and steroids Continue oxygen and titrate accordingly Continue BiPAP at night Objective - Vital Signs Vital signs: Vital Signs Temp 98.5 F 09/09/23 08:00 Pulse 104 H 09/09/23 12:00 Resp 16 09/09/23 12:00 BP 131/73 09/09/23 12:00 Pulse Ox 93 L 09/09/23 12:00 FiO2 40 09/09/23 04:00 Intake & Output 09/08/23 09/09/23 09/09/23 18:59 06:59 18:59 Intake Total 480 358 Output Total 300 600 300 Balance 180 -600 58 Intake: Oral 480 358 Output: Urine 300 600 300 Other: Voiding Method External Catheter External Catheter External Catheter - Exam GENERAL: The patient is alert and oriented x3, ill appearance, nasal cannula in place HEENT: Pupils are round and equally reacting to light. EOMI. CARDIOVASCULAR: S1 and S2 present. Irregular PULMONARY: Decreased breath sounds bilaterally, rhonchi audible ABDOMEN: Soft, nontender, nondistended, normoactive bowel sounds. No palpable organomegaly. MUSCULOSKELETAL: No joint swelling or deformity. EXTREMITIES: Lower extremity edema present NEUROLOGICAL: Gross neurological examination did not reveal any focal deficits. - Labs CBC & Chem 7: 09/09/23 07:08 09/09/23 07:08 Labs: Abnormal Lab Results - Last 24 Hours (Table) 09/08/23 09/08/23 09/09/23 Range/Units 16:44 20:05 07:08 WBC 13.3 H (3.8-10.6) k/uL RBC 3.79 L (3.80-5.40) m/uL Hgb 10.8 L (11.4-16.0) gm/dL MCHC 30.4 L (31.0-37.0) g/dL RDW 16.9 H (11.5-15.5) % Plt Count 112 L (150-450) k/uL Neutrophils # 11.9 H (1.3-7.7) k/uL Lymphocytes # 0.3 L (1.0-4.8) k/uL Basophils # 0.3 H (0-0.2) k/uL Carbon Dioxide (22-30) mmol/L BUN (7-17) mg/dL Creatinine (0.52-1.04) mg/dL POC Glucose (mg/dL) 254 H 179 H (70-110) mg/dL 09/09/23 09/09/23 Range/Units 07:08 11:46 WBC (3.8-10.6) k/uL RBC (3.80-5.40) m/uL Hgb (11.4-16.0) gm/dL MCHC (31.0-37.0) g/dL RDW (11.5-15.5) % Plt Count (150-450) k/uL Neutrophils # (1.3-7.7) k/uL Lymphocytes # (1.0-4.8) k/uL Basophils # (0-0.2) k/uL Carbon Dioxide 34 H (22-30) mmol/L BUN 54 H (7-17) mg/dL Creatinine 1.57 H (0.52-1.04) mg/dL POC Glucose (mg/dL) 156 H (70-110) mg/dL Microbiology - Last 24 Hours (Table) 08/31/23 15:51 Fungal Culture - Preliminary Bronchoalviolar Lavage - Left Assessment and Plan Assessment: * Acute on chronic hypoxic respiratory failure * Acute on chronic exacerbation of congestive heart failure systolic dysfunction ejection fraction 35% * History of atrial fibrillation s/p pacemaker in place * History of pulmonary hypertension * History of COPD with acute exacerbation with tracheobronchitis * Gastroesophageal reflux disease * History of severe pulmonary hypertension * Chronic kidney disease * In regards to CHF exacerbation continue patient on Lasix, cardiology consulted, appreciate recommendations continue to monitor intake and output. Follow-up on renal profile while on diuresis * In Regards to acute on chronic hypoxic respiratory failure, multifactorial likely secondary to obstructive lung disease and CHF. Continue breathing treatments, completed azithromycin, transition to oral prednisone * In regards to history of A-fib continue telemonitoring optimize electrolytes continue rate control medications including metoprolol, continue Eliquis * In regards to history of pulmonary hypertension, pulmonary medicine consulted appreciate input, s/p bronchoscopy, bronchoalveolar lavage reviewed, pulmonary following * In regards to COPD exacerbation, s/p bronchoscopy, culture positive for cytomegalovirus as well as rhinovirus * In regards to chronic kidney disease continue to monitor creatinine while on diuresis, baseline creatinine about 1.8-2 * Expected length of stay another 48 to 72 hours, will need discharge to subacute rehab * CODE STATUS is full code
[2023-09-09 20:03] LABS: Glucose,Whole Blood 190 mg/dL (70-110)
[2023-09-10 06:18] LABS: Glucose,Whole Blood 114 mg/dL (70-110)
--- NOTE | 2023-09-10 07:14 | XR ---
EXAMINATION TYPE: XR chest 1V portable DATE OF EXAM: 09/10/2023 6:08 AM CLINICAL INDICATION:Female, 78 years old with history of CHF, pneumonia; [facility] COMPARISON: Chest radiographs from TECHNIQUE: XR chest 1V portable Frontal view of the chest. FINDINGS: Lungs/Pleura: There is no evidence of pleural effusion, focal consolidation, or pneumothorax. Pulmonary vascularity: Pulmonary vascular congestion. Heart/mediastinum: Cardiomediastinal silhouette is enlarged and stable. Two lead cardiac conduction d evice overlying the left hemithorax with lead tips projecting over the right ventricle and right atri um. Musculoskeletal: No acute osseous pathology. IMPRESSION: Similar Cardiomegaly and mild pulmonary vascular congestion. Correlate with BNP for congestive heart failure.
[2023-09-10 08:26] LABS: Anisocytosis Slight; Basophils % (A) 0 %; Eosinophils # (A) 0.1 k/uL (0-0.7); Eosinophils % (A) 1 %; HCT 34.2 % (34.0-46.0); HGB 10.4 gm/dL (11.4-16.0); Hypochromasia Marked; Lymphocytes # (A) 0.4 k/uL (1.0-4.8); Lymphocytes % (A) 4 %; MCH 28.8 pg (25.0-35.0); MCHC 30.5 g/dL (31.0-37.0); MCV 94.5 fL (80.0-100.0); Mean Platelet Volume 10.1; Monocytes # (A) 0.5 k/uL (0-1.0); Monocytes % (A) 4 %; Neutrophils % (A) 91 %; Platelet Count 126 k/uL (150-450); RBC 3.62 m/uL (3.80-5.40); RDW 16.8 % (11.5-15.5); WBC 12.1 k/uL (3.8-10.6)
[2023-09-10 08:34] VITALS: RESP 16; TEMP 98.1
[2023-09-10 08:55] LABS: African American GFR (CKD) 37 (>60 ml/min/1.73 sqM); Anion Gap 6 mmol/L; Blood Urea Nitrogen 49 mg/dL (7-17); Calcium 8.9 mg/dL (8.4-10.2); Carbon Dioxide 33 mmol/L (22-30); Chloride 102 mmol/L (98-107); Glucose 100 mg/dL (74-99); Non-African American GFR(CKD) 32 (>60 ml/min/1.73 sqM); Potassium 3.3 mmol/L (3.5-5.1); Sodium 141 mmol/L (137-145)
[2023-09-10 11:59] LABS: Glucose,Whole Blood 144 mg/dL (70-110)
[2023-09-10] MEDS: POTASSIUM CHLORIDE ER 10 MEQ TAB.ER.PRT PO STA (12:07)
[2023-09-10 12:31] VITALS: BP 97/59
--- NOTE | 2023-09-10 14:26 | P.PN ---
Subjective Progress Note Date: 09/10/23 Principal diagnosis: Acute hypoxic respiratory failure secondary to acute systolic congestive heart failure and acute exacerbation of COPD with tracheobronchomalacia 78-year-old female seen in the emergency department, on August 26. She presented to the ER, on August 25, complaining of shortness of breath. The patient had been having shortness of breath for couple days prior to admission. In addition, he had a persistent cough, and lower extremity edema. The patient was evaluated, and was found to have CHF. The patient was initially placed on BiPAP, with settings of 16/5 and 40%. When I saw her in the emergency department, she was in room #5, and was on 4 L by nasal cannula. The patient was not getting any IV fluids. She is feeling a bit better. Her past medical history is positive for atrial fibrillation, asthma, breast cancer, heart failure, COPD, GERD, arthritis, and gout. The patient has had a pacemaker implanted as well. She was a former smoker in the past. White count 8.7, hemoglobin 11, hematocrit 37.3, and platelet count was 197,000. PT 12.6, INR 1.2, PTT is 31. Sodium 143, potassium 4.4, chlorides 106, CO2 31, BUN 39, creatinine 1.66. Her troponins were 0.053, 0.042, and 0.041. Her N-terminal proBNP was 16,700. She tested negative for influenza, RSV, and coronavirus. Chest x-ray showed the pacemaker, cardiomegaly, cephalization, bilateral pleural effusions. Progress note dated August 27, 2023. 78-year-old female seen in the emergency department, on August 26. The patient came into the ER on 25 August, complaining of shortness of breath. The patient was found to have congestive heart failure. The patient was placed on BiPAP. She is currently on 16/5 and 40%. She is not receiving any IV fluids. The patient is feeling better. White count is 9.5, hemoglobin 10.1, hematocrit 33.4, and a platelet count of 189,000. Sodium 142, potassium 4.5, chlorides 108, CO2 27, BUN 53, and creatinine 1.86. Glucose is 124. N-terminal proBNP was 18,100. Microbiology was pending are negative. No recent chest x-ray. On today's evaluation of 09/02/2023, the patient has no specific complaints. She is still on bronchodilators and steroids. I have taken her off the IV Solu- Medrol start the patient on prednisone burst taper. Noted following the bronchoscopy, the patient had significant improvement in respiratory status and the patient does not have any significant cough and congestion at this point in time. Less bronchospastic and wheezy. As for the results of the bronchial lavage, the final cultures has not resulted yet. No fever. No chills. The patient remains on oxygen at 3 L/min nasal cannula and oxygen saturation is in order of 97%.Awaiting the final results of the bronchial lavage. Remains on anticoagulation with Eliquis 5 mg twice a day. Rest of the medication remains unchanged. Tolerating her diet. 09/03/2023, the patient is doing well. No specific complaints. Cough and congestion is improved. Bronchoscopy was done and the cultures are essentially negative at this point in time and the patient is currently not receiving any form of antibiotics. She is a smoker spastic and wheezy and the patient was taken off the IV Solu-Medrol and started on a prednisone burst taper. She remains on DuoNeb updrafts. She is also on Lasix 40 mg p.o. twice a day she is taking Diamox for Metabolic alkalosis. No new labs available from today. COVID-19 testing was negative. Most recent blood sugars are 2013. She is currently on 3 days of O2 nasal cannula with a pulse ox of 91%. She is utiliz ing a BiPAP overnight and the patient is currently on 3 L and the patient has a home device and for obstructive sleep apnea that she is utilizing on outpatient basis. No altered mentation. No signs of any CO2 narcosis. No chest pain. She remains on anticoagulation with Eliquis. Patient was evaluated today on 09/04/2023, continues to have cough wheezing shortness of breath, cough is productive with thick phlegm, patient seems to be more bothered with her cough than anything else. Apparently the patient had a recent bronchoscopy, cultures were negative, but apparently she had tracheobronchomalacia, and she had copious amount of secretions suctioned and lavaged by Dr. Alonzo. I have a feeling that the patient may require another bronchoscopy, however will decide on this in the next 24 hours. In the meantime the patient remains on nasal cannula, intermittently on BiPAP overnight, she does have home device for obstructive sleep apnea. Patient remains on antibiotics, bronchodilators, and on Eliquis. Basic metabolic profile is relatively normal BUN is 74 creatinine 2.09 last chest x-ray was on 08/29/2023, and I am recommending a follow-up chest x-ray considering the patient remains quite symptomatic. Patient was reevaluated today on 09/05/23, continues to have productive cough, wheezing, shortness of breath, chest x-ray continues to show evidence of pulmonary edema. Patient felt better after she had bronchoscopy for 2 days, however her symptoms now are back as they were prior to bronchoscopy. Can get the report, patient had tracheobronchomalacia which seems to be a major issue for this patient. I am considering bronchoscopy if the patient does not improve in the next couple of days. In the meantime we will continue to hold, we will continue bronchodilators, increase her diuretics since her chest x-ray continues to show evidence of pulmonary edema, and the patient will be given Mucinex, chest PT, and a flutter valve. Cultures from the BAL were nondiagnostic. WBC count today is 8.2 hemoglobin 9.6, basic metabolic profile is normal BUN is 65 creatinine 1.64, improving compared to creatinine of 2.09 yesterday Patient was reevaluated today on 09/06/2023, patient is feeling better today, less cough less wheezing less shortness of breath, improving, hence I will hold on repeat bronchoscopy on this patient. Yesterday I increased her Lasix dose. Remains on bronchodilators, Mucinex, antibiotics, steroids, and chest PT. WBC count today is 11.3 hemoglobin 10.3 basic metabolic profile is normal bicarb is 37 BUN 58 creatinine 1.67 Reevaluate today on 09/07/2023, continues to slowly improve, definitely not any worse, patient is able to clear her secretions according to her today. Hence definitely she does not need repeat bronchoscopy. Remains on Lasix for her congestive heart failure, remains on antibiotics, Mucinex, bronchodilators, and steroids. Patient is definitely improving but rather slowly.Remains on 3 L nasal cannula. Reevaluate today on 09/08/2023, patient is steadily improving but slowly. Less cough less wheezing less shortness of breath. Remains on bronchodilators, steroids, antibiotics, and diuretics. Continues to have rhonchi and wheezing on forced expiratory maneuver, that may never change considering the patient has severe tracheobronchomalacia Patient was reevaluated today on 09/09/2023, patient feels better today, breat april easier, she is undergoing chest physical therapy during my evaluation. Less cough less wheezing less shortness of breath, hence I believe the patient should be considered for discharge hopefully in the next 24 hours. Labs today including CBC and basic metabolic profile were noted to be unremarkable, creatinine 1.57 basically within her normal range Patient was reevaluated today on 09/10/2023, continues to improve slowly, she does have intermittent cough and wheezing, but significantly improved in the last 2 days compared to the days prior. Intermittent cough, occasional wheezing, no fever no chills no hemoptysis no chest painLabs today were basically unremarkable including relatively normal CBC, normal electrolytes, creatinine is holding at 1.55. This is basically about her baseline Objective - Vital Signs Vital signs: Vital Signs Temp 98.1 F 09/10/23 08:00 Pulse 102 H 09/10/23 14:23 Resp 16 09/10/23 12:00 BP 97/59 09/10/23 12:00 Pulse Ox 92 L 09/10/23 12:00 FiO2 40 09/10/23 03:06 Intake & Output 09/09/23 09/10/23 09/10/23 18:59 06:59 18:59 Intake Total 598 240 Output Total 1000 1100 900 Balance -402 -1100 -660 Intake: Oral 598 240 Output: Urine 1000 1100 900 Other: Voiding Method External Catheter External Catheter External Catheter - Exam General: The patient is awake and alert, in no distress, and does not appear acutely ill. On 4 L nasal cannula Skin: Skin is warm and dry and no rashes or lesions are noted. Eye: Pupils are equal, round and reactive to light, extra-ocular movements are intact; there is normal conjunctiva bilaterally. Ears, nose, mouth and throat: There are moist mucous membranes and no oral lesions. Neck: The neck is supple, there is no tenderness or JVD. Cardiovascular: There is a regular rate and rhythm. No murmur, rub or gallop is appreciated. Respiratory: Wheezing on forced expiratory maneuver Gastrointestinal: Soft, non-distended, non-tender abdomen without masses or organomegaly noted. There is no rebound or guarding present. Bowel sounds are unremarkable. Back: There is no tenderness to palpation in the midline. There is no obvious deformity. Musculoskeletal: Normal ROM, no tenderness, There is no pedal edema. There is no calf tenderness or swelling. No cords were appreciated. Neurological: CN II-XII intact, Cranial nerves III through XII are intact. There are no obvious motor or sensory deficits. Coordination appears grossly in tact. Speech is normal. Psychiatric: Cooperative, appropriate mood & affect, normal judgment. - Labs CBC & Chem 7: 09/10/23 07:03 09/10/23 07:03 Labs: Abnormal Lab Results - Last 24 Hours (Table) 09/09/23 09/09/23 09/10/23 Range/Units 16:43 20:01 06:16 WBC (3.8-10.6) k/uL RBC (3.80-5.40) m/uL Hgb (11.4-16.0) gm/dL MCHC (31.0-37.0) g/dL RDW (11.5-15.5) % Plt Count (150-450) k/uL Neutrophils # (1.3-7.7) k/uL Lymphocytes # (1.0-4.8) k/uL Potassium (3.5-5.1) mmol/L Carbon Dioxide (22-30) mmol/L BUN (7-17) mg/dL Creatinine (0.52-1.04) mg/dL Glucose (74-99) mg/dL POC Glucose (mg/dL) 293 H 190 H 114 H (70-110) mg/dL 09/10/23 09/10/23 09/10/23 Range/Units 07:03 07:03 11:56 WBC 12.1 H (3.8-10.6) k/uL RBC 3.62 L (3.80-5.40) m/uL Hgb 10.4 L (11.4-16.0) gm/dL MCHC 30.5 L (31.0-37.0) g/dL RDW 16.8 H (11.5-15.5) % Plt Count 126 L (150-450) k/uL Neutrophils # 11.0 H (1.3-7.7) k/uL Lymphocytes # 0.4 L (1.0-4.8) k/uL Potassium 3.3 L (3.5-5.1) mmol/L Carbon Dioxide 33 H (22-30) mmol/L BUN 49 H (7-17) mg/dL Creatinine 1.55 H (0.52-1.04) mg/dL Glucose 100 H (74-99) mg/dL POC Glucose (mg/dL) 144 H (70-110) mg/dL Assessment and Plan Assessment: Impression: Acute on chronic hypoxemic respiratory failure secondary to systolic CHF/COPD exacerbation. The patient also has diffuse tracheobronchitis, mucous plugging and severe tracheobronchomalacia and the patient is post bronchoscopy and therapeutic airway suctioning and a bronchial lavage. Patient is denying any significant improvement today in spite of her recent bronchoscopy and BAL. Severe tracheobronchitis with mucous plugging and diffuse mucosal inflammatory changes, therapeutic airway suctioning was done and copious amount of rest or secretions were suctioned out and the cultures are all negative, may have to consider repeat bronchoscopy on this patient if she continues to be symptomatic Severe COPD and the patient has limited on trilogy looked on outpatient basis in addition to O2. She is an ex-smoker and she quit smoking several years back. History of atrial fibrillation, status post pacemaker implantation. The patient is maintained on long-term anticoagulation with Eliquis Acute on chronic systolic heart failure with ejection fraction of 35 to 40% and secondary pulmonary hypertension History of severe pulmonary hypertension. History of valvular heart disease. The patient has moderate degree of mitral regurgitation and severe tricuspid regurgitation and severe pulm hypertension. Chronic stage III kidney disease History of breast cancer, with previous lumpectomy on the right. Gastroesophageal reflux disease. History of gout. Prior history of tobacco use. History of depression. Recommendation: Continue Mucinex Continue flutter valve and chest PT Continue Lasix, 40 mg p.o. 3 times daily Continue present supportive care measures Continue bronchodilators and steroids Continue oxygen and titrate accordingly Continue BiPAP at night Continue eliquis Consider discharge planning in the next 24 hours Time with Patient: Less than 30
[2023-09-10 14:29] VITALS: PULSE 102
[2023-09-10 16:07] LABS: Glucose,Whole Blood 274 mg/dL (70-110)
--- NOTE | 2023-09-13 13:24 | P.DS ---
Providers Date of admission: 08/25/23 20:22 Expected date of discharge: 09/10/23 Attending physician: Guanako Lindsay Consults: 08/25/23 20:22 Consult Physician Routine Consulting Provider: Adriano Alonzo Consult Reason/Comments: known Do you want consulting provider notified?: Yes Primary care physician: Ingrid Ocampo DO Hospital Course: 78-year-old patient with past medical history significant for chronic congestive heart failure systolic dysfunction, history of atrial fibrillation, s/p pacemaker in place, chronic kidney disease, history of breast cancer s/p lumpectomy, chronic hypoxic respiratory failure on home oxygen 3 L at baseline history of obstructive lung disease presents to the emergency department with complaints of difficulty in breathing. Patient was admitted early in June with similar presentation and was noted to have CHF exacerbation. Patient states she had significant shortness of breath cough, significant anxiety. * At time of presentation workup initiated in ER included serum chemistry which showed sodium 143 potassium 4.4, dioxide 31 BUN 39 creatinine 1.66, CBC showed WBC 8.7 hemoglobin 11 hematocrit 37 platelet count of 197 chest x-ray was obtained which showed significant amount of bilateral opacities and effusion. [place] [address], serial troponins were obtained which was 0.053, 0.042, 0.041 INR was 1.2. Patient tested negative for influenza COVID and RSV. At the time of presentation in ER patient was noted to be in distress and was placed on BiPAP gradually weaned down to nasal cannula * Patient was admitted to medical floor with consultation from cardiology and pulmonary medicine * 08/27/23: Patient seen and evaluated bedside, patient does complain of shortness of breath continue to remain on high flow oxygen on 5 L. Continue on IV Lasix, started on azithromycin secondary to sputum production. Seen by pulmonary medicine. Recurrent hospitalization prognosis remains guarded initiated on Mucinex as well * 08/28/2023: Patient seen and evaluated bedside, patient states breathing has improved, CBC reviewed hemoglobin 9.4, WBC 7.7, serum chemistry showed creatinine 1.95, potassium of 4.3. Continue patient on IV Lasix CRP around 3 we will follow-up on N-terminal proBNP for tomorrow. 07/29/2023 This is a pleasant 78 years old female with past medical history of multiple medical problems including COPD and chronic hypoxic respiratory failures on 3 L oxygen at home. She was also states on BiPAP machine at home. Presents because of dyspnea and cough 3 days and was hypoxic at 85% and for later oxygen. At home she uses 3 L. This morning she is awake alert, she still have shortness of breath while on BiPAP. Still has limited air entry. She is To THE MEDROL 60 MG SHE HAS LITTLE DIARRHEA BUT C. DIFF IS NEGATIVE. IMODIUM WHEN NECESSARY IS ORDERED. She is on home dose of eliquis as she has history of A. fib 08/30/2023atient still feeling short of breath although she is somewhat better than yesterday, she still using the BiPAP machine, patient has been using her CPAP machine at night for the last 9 days after she left murmur and before she comes to this facility. She still have significant coughing. No chest pain She denies any other symptom She has 1+ bilateral pitting leg edema, wheezing and decrease and entry. She is currently on oral Lasix 40 mg twice daily, we added fluid restriction 1200 mL per day Also she is on ivn Medrol 60 mg 08/31/2023 Patient is still short of breath and chest: But this morning She is awake alert at baseline No other new complaints Patient going for bronchoscopy today 09/01/2023 Patient status post bronchoscopy yesterday showing suspicious for acute tracheobronchitis with a lot of secretions and purulence materials that's been washed out She is losing BiPAP overnight however this morning she was off of later oxygen via nasal cannula, she says her breathing is better but she still have significant wheezing and bronchospasm She remains on IV Solu-Medrol 60 mg She is complaining of from oral thrush and nystatin was admitted today 09/02/2023 Patient clinically is improving She is wished to oral prednisone 40 mg Pending the results of Vanco prior low batch 09/03/2023 Patient continued to improve since the bronchoscopy. Pending bronchoalveolar lavage results She is currently affixed oxygen via nasal cannula She is on prednisone 40 mg on home dose of Eliquis 5 mg Creatinine 2.1. Check labs tomorrow 09/04 Dr Cruz Assumed care Patient seen and evaluated bedside, patient does complain of cough, s/p bronchoscopy. Completed course of antibiotic continue patient on anticoagulation, Mucinex, prednisone. Pulmonary medicine following 09/05: Patient seen and evaluated bedside, patient does complain of cough and shortness of breath, dose of Lasix increased to 3 times a day. Blood work reviewed CBC WBC within normal limits hemoglobin 9.6 platelet 119, potassium of 3.3 replaced, creatinine 1.64 09/06: Patient seen and evaluated bedside, patient on 3 L of oxygen, cultures from bronchoscopy shows rhinovirus and CMV DNA positive. Continue patient on diuretics, follow-up on basic metabolic panel, and CBC 09/07/23: Patient seen and evaluated bedside, patient on 3 L of oxygen, at this time repeat bronchoscopy deferred, patient states she has improved. Continue patient on flutter valve, continue chest physiotherapy. WBC trending up, CRP minimally elevated within normal limits. Creatinine 1.5 to clinically patient is improving * Acute on chronic hypoxic respiratory failure * Acute on chronic exacerbation of congestive heart failure systolic dysfunction ejection fraction 35% * History of atrial fibrillation s/p pacemaker in place * History of pulmonary hypertension * History of COPD with acute exacerbation with tracheobronchitis * Gastroesophageal reflux disease * History of severe pulmonary hypertension * Chronic kidney disease * In regards to CHF exacerbation continue patient on Lasix, cardiology consulted, appreciate recommendations continue to monitor intake and output. Follow-up on renal profile while on diuresis * In Regards to acute on chronic hypoxic respiratory failure, multifactorial l ikely secondary to obstructive lung disease and CHF. Continue breathing treatments, completed azithromycin, transition to oral prednisone * In regards to history of A-fib continue telemonitoring optimize electrolytes continue rate control medications including metoprolol, continue Eliquis * In regards to history of pulmonary hypertension, pulmonary medicine consulted appreciate input, s/p bronchoscopy, bronchoalveolar lavage reviewed, pulmonary following * In regards to COPD exacerbation, s/p bronchoscopy, culture positive for cytomegalovirus as well as rhinovirus * In regards to chronic kidney disease continue to monitor creatinine while on diuresis, baseline creatinine about 1.8-2 * Expected length of stay another 48 to 72 hours, will need discharge to subacute rehab * * Patient and family refused SNF and cleared to dc by Pulmonary service Patient Condition at Discharge: Fair Plan - Discharge Summary New Discharge Prescriptions: New Furosemide [Lasix] 40 mg PO TID 30 Days #90 tab Benzonatate [Tessalon Perles] 200 mg PO TID 10 Days #30 cap predniSONE [Deltasone] 10 mg PO DAILY 10 Days #10 tab Nystatin 100,000 Unit/ml Susp [Mycostatin Oral Susp] 500,000 unit PO QID 5 Days #100 ml Continue Apixaban [Eliquis] 5 mg PO BID Metoprolol Succinate [Metoprolol Succinate ER] 75 mg PO HS Magnesium Oxide [Mag-Ox] 400 mg PO DAILY Fluticasone/Umeclidin/Vilanter [Trelegy Ellipta 100-62.5-25] 1 puff INHALATION RT-DAILY Power C Supplement 2 tab PO DAILY Cholecalciferol [Vitamin D3 (25 Mcg = 1000 Iu)] 75 mcg PO DAILY Ipratropium/Albuter 20-100Mcg [Combivent Respimat 20-100Mcg Inhaler] 1 puff INHALATION RT-QID PRN PRN Reason: Shortness Of Breath Montelukast [Singulair] 10 mg PO HS Vitamin B Complex 1 cap PO DAILY Albuterol Inhaler [Ventolin Hfa Inhaler] 2 puff INHALATION RT-QID PRN #1 each PRN Reason: Shortness Of Breath Ipratropium-Albuterol Nebulize [Duoneb 0.5 mg-3 mg/3 ml Soln] 3 ml INHALATION RT-TID Torsemide [Demadex] 20 mg PO BID@0900,1600 tab acetaZOLAMIDE [Diamox] 250 mg PO BID tab Potassium Chloride ER [K-Dur 20] 20 meq PO DAILY Tamsulosin [Flomax] 0.4 mg PO DAILY Omeprazole 20 mg PO BID Discharge Medication List Apixaban [Eliquis] 5 mg PO BID 11/12/22 [History] Cholecalciferol [Vitamin D3 (25 Mcg = 1000 Iu)] 75 mcg PO DAILY 11/12/22 [History] Ipratropium/Albuter 20-100Mcg [Combivent Respimat 20-100Mcg Inhaler] 1 puff INHALATION RT-QID PRN 11/12/22 [History] Metoprolol Succinate [Metoprolol Succinate ER] 75 mg PO HS 11/12/22 [History] Montelukast [Singulair] 10 mg PO HS 11/12/22 [History] Power C Supplement 2 tab PO DAILY 11/12/22 [History] Vitamin B Complex 1 cap PO DAILY 11/12/22 [History] Albuterol Inhaler [Ventolin Hfa Inhaler] 2 puff INHALATION RT-QID PRN #1 each 04/29/23 [Rx] Ipratropium-Albuterol Nebulize [Duoneb 0.5 mg-3 mg/3 ml Soln] 3 ml INHALATION RT-TID 06/25/23 [History] Torsemide [Demadex] 20 mg PO BID@0900,1600 tab 07/13/23 [Rx] acetaZOLAMIDE [Diamox] 250 mg PO BID tab 07/13/23 [Rx] Fluticasone/Umeclidin/Vilanter [Trelegy Ellipta 100-62.5-25] 1 puff INHALATION RT-DAILY 08/25/23 [History] Magnesium Oxide [Mag-Ox] 400 mg PO DAILY 08/25/23 [History] Omeprazole 20 mg PO BID 08/25/23 [History] Potassium Chloride ER [K-Dur 20] 20 meq PO DAILY 08/25/23 [History] Tamsulosin [Flomax] 0.4 mg PO DAILY 08/25/23 [History] Benzonatate [Tessalon Perles] 200 mg PO TID 10 Days #30 cap 09/10/23 [Rx] Furosemide [Lasix] 40 mg PO TID 30 Days #90 tab 09/10/23 [Rx] Nystatin 100,000 Unit/ml Susp [Mycostatin Oral Susp] 500,000 unit PO QID 5 Days #100 ml 09/10/23 [Rx] predniSONE [Deltasone] 10 mg PO DAILY 10 Days #10 tab 09/10/23 [Rx] Follow up Appointment(s)/Referral(s): Ingrid Ocampo DO [Primary Care Provider] - 1-2 days Adriano Alonzo MD [STAFF PHYSICIAN] - 09/26/23 10:00 am Discharge Disposition: HOME WITH HOME HEALTH SERVICES
== END 2023-09-10 17:28 | disposition home health service (06) | DRG 291 ==
LOC: EC 16:41 → 3SCARD 20:22 → OBSVTOIN 20:22 → 3SCARD 08-26 → 3NCARDOBS 09-03 04:46 → 3SCARD 09-03 04:49
PROVIDERS: ADMIT Hospitalist; ATTEND Hospitalist
PROC: 5A09357 Assistance with Respiratory Ventilation, Less than 24 Consecutive Hours, Continuous Positive Airway Pressure (ICD-10-PCS; principal; 2023-08-25)
PROC: 0B9B8ZZ Drainage of Left Lower Lobe Bronchus, Via Natural or Artificial Opening Endoscopic (ICD-10-PCS; 2023-08-31)
PROC: 0B938ZZ Drainage of Right Main Bronchus, Via Natural or Artificial Opening Endoscopic (ICD-10-PCS; 2023-08-31)
PROC: 0B978ZZ Drainage of Left Main Bronchus, Via Natural or Artificial Opening Endoscopic (ICD-10-PCS; 2023-08-31)
PROC: 0B968ZZ Drainage of Right Lower Lobe Bronchus, Via Natural or Artificial Opening Endoscopic (ICD-10-PCS; 2023-08-31)
PROC: 0BD68ZX Extraction of Right Lower Lobe Bronchus, Via Natural or Artificial Opening Endoscopic, Diagnostic (ICD-10-PCS; 2023-08-31)
PROC: 0B918ZZ Drainage of Trachea, Via Natural or Artificial Opening Endoscopic (ICD-10-PCS; 2023-08-31 16:00)
DX: I50.23 Acute on chronic systolic (congestive) heart failure (principal); J96.21 Acute and chronic respiratory failure with hypoxia; B25.9 Cytomegaloviral disease, unspecified; N17.9 Acute kidney failure, unspecified; E87.3 Alkalosis; B37.0 Candidal stomatitis; J44.1 Chronic obstructive pulmonary disease with (acute) exacerbation; J44.0 Chronic obstructive pulmonary disease with (acute) lower respiratory infection; I48.20 Chronic atrial fibrillation, unspecified; I27.22 Pulmonary hypertension due to left heart disease; J98.09 Other diseases of bronchus, not elsewhere classified; D63.1 Anemia in chronic kidney disease; Z99.81 Dependence on supplemental oxygen; F32.A Depression, unspecified; I08.1 Rheumatic disorders of both mitral and tricuspid valves; I08.3 Combined rheumatic disorders of mitral, aortic and tricuspid valves; N18.30 Chronic kidney disease, stage 3 unspecified; I48.0 Paroxysmal atrial fibrillation; K21.9 Gastro-esophageal reflux disease without esophagitis; M10.9 Gout, unspecified; M19.90 Unspecified osteoarthritis, unspecified site; G47.33 Obstructive sleep apnea (adult) (pediatric); E87.5 Hyperkalemia; F41.9 Anxiety disorder, unspecified; Z79.01 Long term (current) use of anticoagulants; J20.9 Acute bronchitis, unspecified; B97.89 Other viral agents as the cause of diseases classified elsewhere; Z95.0 Presence of cardiac pacemaker; Z85.3 Personal history of malignant neoplasm of breast; Z87.891 Personal history of nicotine dependence; Z11.52 Encounter for screening for COVID-19; Z79.899 Other long term (current) drug therapy; Z88.6 Allergy status to analgesic agent; Z92.3 Personal history of irradiation
CPT/HCPCS: 31624; 36410; 36415; 51702; 71045; 71046; 76937; 80048; 80053; 83605; 83735; 83880; 84100; 84484; 85025; 85027; 85610; 85730; 86140; 87070; 87102; 87116; 87205; 87206; 87324; 87496; 87498; 87502; 87529; 87634; 87635; 87636; 87798; 89050; 93005; 94640; 94660; 94664; 94667; 94668; 94760; 96361; 96374; 96375; 96376; 99291

== ENCOUNTER 2023-11-14 20:06 | Outpatient (CLI) | payer MEDICARE ==
--- NOTE | 2023-11-16 16:47 | P.PCN ---
Date of Procedure: 11/15/23 Operative Findings: Polysomnography report Date of service is 11/14/2023 Pertinent history This is a 78-year-old female patient with severe COPD oxygen dependent at 3 L/min nasal cannula. Currently the patient is residing at [facility]. Suspected obstructive sleep apnea in combination with COPD and the patient has chronic hypoxic and hypercapnic respiratory failure. I thought it was reasonable to do a polysomnography as the patient is currently being treated with a BiPAP at a pressure of 16 over 5 cm of water. I did offer a BiPAP machine for this patient from our office. I donated the machine and I set up an EPAP minimum of 5 and a maximum 16 with a pressure support of 4. An official polysomnography was ordered accordingly. She has chronic A-fib, tachybradycardia syndrome, breast cancer, gout, secondary pulm hypertension and aortic valve stenosis with a preserved LV function. Pertinent physical findings The patient's height is 5 0, weight is 185 pounds with a body mass index of 36.1 Technical description The patient was studied using a standard complex polysomnography protocol that included recording of the 2 EKG, Central, occipital and frontal EEG, right and left outer canthus EOG, submental EMG, right and left anterior tibialis EMG, respiratory airflow by thermocouple and or pressure/flow transducer, respiratory efforts by abdominal and thoracic PVDF belts, oxygen saturation by cable oximetry. Position by observation synchronized the PSG. 4 children 12 and nontender and select patients, ETCO2 may be added to the recording. Equipment used: [employer]. Sleep characteristics Total recording duration was 426.5 minutes. The total sleep time was 282.0 minutes. The overall sleep efficiency was 66.1%. The latency to sleep onset was 17.5 minutes. Relates to REM sleep was 147.5 minutes. The sleep architecture was catheterized by 10.1% stage I, 84% stage II, 0% stage III and 5% REM sleep. The total arousal index was 60.2. The latency after sleep onset time was 123 Results Respiratory analysis showed a total of 19 obstructive events of which 4 were obs tructive apneas 0 mixed apneas and 51 obstructive hypopneas. The resulting AHI was 3.4. No central apneas were noted Oxygenation analysis The baseline pulse ox while awake was 95%, lowest pulse ox was 82% and the patient spent approximately 42 minutes of sleep time below pulse ox of 89% Sleep continuity summary The patient had total of 283 arousals with an index of 60.2. The respiratory arousal index was 1.1 Regarding the movement activity A total of 376 periodic limb movements were noted with an index of 80. There was a total of 35 periodic limb movements with arousals with an index of 7.4 Cardiac analysis The average heart rate was 70 with a minimum heart rate of 60 and a maximum heart rate of 74 Assessment Primary snoring, no evidence of sleep breathing disorder Chronic hypoxemia exacerbated during sleep specially during REM. Lowest pulse ox recorded was 82% Severe COPD with previous hospitalizations for acute COPD exacerbation and a component of chronic hypoxic and hypercapnic respiratory failure, and the patient has home O2 at 3 to 4 L/min nasal cannula. Chronic A-fib Tachybradycardia syndrome Breast cancer Secondary pulmonary hypertension Aortic valve stenosis Plan I am unable to improve the device for this patient on the basis of obstructive sleep apnea. Nevertheless, she should be able to qualify for a noninvasive positive pressure ventilator on the basis of her COPD as the patient has had frequent hospitalization and she has chronic hypoxic and hypercapnic respiratory failure. Will need a blood gas to confirm a pCO2 level above 52. Meanwhile, the patient can utilize the BiPAP machine at was donated to this patient from our office. Will keep the same pressure settings. Will make further adjustments if needed. Will check her compliancy. Will continue to follow.
== END 2023-11-15 06:10 | disposition home or self-care (01) ==
LOC: 3 N SLEEP 20:06
PROVIDERS: ATTEND Internal Medicine Critical Care Medicine
DX: G47.52 REM sleep behavior disorder (principal); G47.61 Periodic limb movement disorder; J44.9 Chronic obstructive pulmonary disease, unspecified; J96.12 Chronic respiratory failure with hypercapnia; J96.11 Chronic respiratory failure with hypoxia; I48.20 Chronic atrial fibrillation, unspecified; I49.5 Sick sinus syndrome; I27.29 Other secondary pulmonary hypertension; I35.0 Nonrheumatic aortic (valve) stenosis; M10.9 Gout, unspecified; C50.919 Malignant neoplasm of unspecified site of unspecified female breast; Z99.81 Dependence on supplemental oxygen; Z88.6 Allergy status to analgesic agent; Z79.01 Long term (current) use of anticoagulants; Z79.899 Other long term (current) drug therapy; Z79.51 Long term (current) use of inhaled steroids
CPT/HCPCS: 95810

== ENCOUNTER → 2024-03-18 | Outpatient (CLI) | payer MEDICARE ==
[2024-03-18 18:36] LABS: HGB 11.6 g/dL (12.0-15.0); MCH 28.8 pg (27.0-32.0); MCHC 30.5 g/dL (32.0-37.0); MCV 94.3 FL (80.0-97.0); Mean Platelet Volume 11.5 FL (9.5-12.2); NRBC Per 100 WBC 0 X 10*3/uL (0.00-0.01); Platelet Count 193 X 10*3/uL (140-440); RBC 4.03 X 10*6/uL (4.10-5.20); RDW 14.9 % (11.5-14.5); WBC 8.36 X 10*3/uL (4.50-10.00)
[2024-03-18 21:14] LABS: Blood Urea Nitrogen 40.9 mg/dL (9.0-27.0); Carbon Dioxide 30.9 mmol/L (21.6-31.8); Chloride 102 mmol/L (96-109); Sodium 146 mmol/L (135-145)
== END | disposition home or self-care (01) ==
LOC: LABPAT 12:34
PROVIDERS: ATTEND Internal Medicine Interventional Cardiology
DX: Z01.812 Encounter for preprocedural laboratory examination (principal); I48.11 Longstanding persistent atrial fibrillation
CPT/HCPCS: 80051; 82565; 84520; 85027

== ENCOUNTER 2024-05-23 23:53 | Inpatient (IN) | payer MEDICARE ==
[2024-05-24] MEDS: predniSONE 20 MG TAB PO STA (00:16)
[2024-05-24 00:21] LABS: Basophils % (A) 0 %; Eosinophils # (A) 0.6 k/uL (0-0.7); Eosinophils % (A) 6 %; HCT 37.9 % (34.0-46.0); HGB 12.1 gm/dL (11.4-16.0); Hypochromasia Slight; Lymphocytes # (A) 1.5 k/uL (1.0-4.8); Lymphocytes % (A) 15 %; MCHC 31.9 g/dL (31.0-37.0); MCV 94.1 fL (80.0-100.0); Mean Platelet Volume 7.8; Monocytes # (A) 0.6 k/uL (0-1.0); Monocytes % (A) 6 %; Neutrophils % (A) 70 %; Platelet Count 201 k/uL (150-450); RBC 4.03 m/uL (3.80-5.40); RDW 15.2 % (11.5-15.5)
--- NOTE | 2024-05-24 00:29 | ED ---
SOB HPI - General Chief Complaint: Shortness of Breath Stated Complaint: THANG Time Seen by Provider: 05/24/24 00:01 Source: EMS Mode of arrival: EMS - History of Present Illness Initial Comments: This patient is a 79-year-old woman who presents to have evaluation for shortness of breath that has been getting worse over the course of the evening and night. Patient has not noted onset of fever or chills. She does have chronic cough but has not noted a change. She has a little bit of upper chest tightness. When the shortness of breath worsened EMS was called and transported her here. MD Complaint: shortness of breath, cough -: hour(s) Severity: mild Quality: other (Tightness) Consistency: constant Improves With: upright position Worsens With: lying flat Known History Of: COPD, congestive heart failure Associated Symptoms: cough Treatments Prior to Arrival: oxygen - Related Data Home Oxygen Therapy: Yes Home Medications Medication Instructions Recorded Confirmed Ipratropium/Albuter 20-100Mcg 1 puff INHALATION RT-QID PRN 11/12/22 05/24/24 [Combivent Respimat 20-100Mcg Inhaler] Metoprolol Succinate [Metoprolol 75 mg PO HS 11/12/22 05/24/24 Succinate ER] Montelukast [Singulair] 10 mg PO HS 11/12/22 05/24/24 Ipratropium-Albuterol Nebulize 3 ml INHALATION RT-QID 06/25/23 05/24/24 [Duoneb 0.5 mg-3 mg/3 ml Soln] Potassium Chloride ER [K-Dur 20] 20 meq PO DAILY 08/25/23 05/24/24 Empagliflozin [Jardiance] 10 mg PO DAILY 05/24/24 05/24/24 Ferrous Sulfate [Iron (65 MG 325 mg PO DAILY 05/24/24 05/24/24 Elemental)] Fexofenadine HCl [Jamee Allergy] 180 mg PO HS 05/24/24 05/24/24 Pantoprazole Sodium [Protonix] 40 mg PO BID 05/24/24 05/24/24 allopurinoL [Zyloprim] 150 mg PO DAILY 05/24/24 05/24/24 Previous Rx's Medication Instructions Recorded Albuterol Inhaler [Ventolin Hfa 2 puff INHALATION RT-QID PRN #1 11/19/22 Inhaler] each Torsemide [Demadex] 20 mg PO BID@0900,1600 tab 07/13/23 Apixaban [Eliquis] 2.5 mg PO BID 30 Days #60 tab 06/01/24 Nystatin 100,000 Unit/ml Susp 500,000 unit PO QID 5 Days #100 ml 06/01/24 [Mycostatin Oral Susp] predniSONE [Deltasone] 40 mg PO DAILY 5 Days #10 tab 06/01/24 Allergies Allergy/AdvReac Type Severity Reaction Status Date / Time aspirin Allergy Anaphylaxis Verified 05/24/24 08:10 ibuprofen Allergy Anaphylaxis Verified 05/24/24 08:10 Review of Systems ROS Statement: Those systems with pertinent positive or pertinent negative responses have been documented in the HPI. ROS Other: All systems not noted in ROS Statement are negative. Constitutional: Denies: fever, chills, weakness Respiratory: Reports: cough, dyspnea Cardiovascular: Reports: chest pain, orthopnea, edema. Denies: palpitations, syncope Gastrointestinal: Denies: abdominal pain, nausea, vomiting, diarrhea Genitourinary: Denies: dysuria, hematuria Musculoskeletal: Denies: back pain Skin: Denies: rash Neurological: Denies: headache, weakness, numbness Past Medical History Past Medical History: Atrial Fibrillation, Asthma, Cancer, Heart Failure, COPD, GERD/Reflux, Skin Disorder Additional Past Medical History / Comment(s): COPD, asthma, breast cancer-right lumpectomy and radiation therapy 25 years ago, wears 3L NC at home, chronic atrial fibrillation, CHF (systolic ). Arthritis, dry patch on right leg, gout History of Any Multi-Drug Resistant Organisms: None Reported Past Surgical History: Section, Heart Catheterization, Hernia Repair, Pacemaker Additional Past Surgical History / Comment(s): left hand surgery for broken index and middle finger Past Anesthesia/Blood Transfusion Reactions: No Reported Reaction Type of Cardiac Device: Permanent Pacemaker Device Placement Date:: 07/2021 Past Psychological History: Depression Smoking Status: Former smoker Past Alcohol Use History: None Reported Past Drug Use History: None Reported - Past Family History Mother Family Medical History: Diabetes Mellitus General Exam General appearance: alert, in no apparent distress Head exam: Present: atraumatic, normocephalic Eye exam: Present: normal appearance. Absent: scleral icterus, conjunctival injection ENT exam: Present: normal oropharynx Neck exam: Present: normal inspection Respiratory exam: Present: rales. Absent: wheezes, rhonchi, stridor, accessory muscle use Cardiovascular Exam: Present: regular rate, normal rhythm, normal heart sounds. Absent: systolic murmur, diastolic murmur, rubs, gallop GI/Abdominal exam: Present: soft. Absent: distended, tenderness, guarding, rebound, rigid, mass Extremities exam: Present: normal inspection, normal capillary refill, pedal edema. Absent: tenderness, calf tenderness Back exam: Present: normal inspection. Absent: CVA tenderness (R), CVA tenderness (L) Neurological exam: Present: alert Skin exam: Present: warm, dry, intact, normal color. Absent: rash Course Vital Signs 05/23/24 05/24/24 05/24/24 23:54 00:01 00:27 Temperature 98.4 F Pulse Rate 84 72 Pulse Rate [ Pulse Oximetery ] Respiratory 20 22 16 Rate Blood Pressure 120/62 114/74 Blood Pressure [Left Arm] O2 Sat by Pulse 94 L 94 L Oximetry Fraction of Inspired Oxygen (FIO2) 05/24/24 05/24/24 05/24/24 01:00 02:10 03:20 Temperature 98 F Pulse Rate 79 74 Pulse Rate [ 83 Pulse Oximetery ] Respiratory 23 21 18 Rate Blood Pressure 123/63 110/68 Blood Pressure 125/63 [Left Arm] O2 Sat by Pulse 93 L 92 L 94 L Oximetry Fraction of Inspired Oxygen (FIO2) 05/24/24 05/24/24 05/24/24 03:28 03:34 03:35 Temperature Pulse Rate 78 Pulse Rate [ Pulse Oximetery ] Respiratory 20 Rate Blood Pressure 107/66 Blood Pressure [Left Arm] O2 Sat by Pulse 94 L Oximetry Fraction of 40 40 Inspired Oxygen (FIO2) 05/24/24 05/24/24 05/24/24 04:29 05:35 07:35 Temperature 97.6 F Pulse Rate 70 73 68 Pulse Rate [ Pulse Oximetery ] Respiratory 17 15 20 Rate Blood Pressure 118/78 117/73 117/79 Blood Pressure [Left Arm] O2 Sat by Pulse 95 96 94 L Oximetry Fraction of Inspired Oxygen (FIO2) 05/24/24 05/24/24 05/24/24 08:19 08:31 09:21 Temperature Pulse Rate 70 72 71 Pulse Rate [ Pulse Oximetery ] Respiratory 18 Rate Blood Pressure 110/61 Blood Pressure [Left Arm] O2 Sat by Pulse 97 Oximetry Fraction of Inspired Oxygen (FIO2) 05/24/24 05/24/24 05/24/24 12:00 14:00 15:19 Temperature Pulse Rate 72 76 74 Pulse Rate [ Pulse Oximetery ] Respiratory 20 20 Rate Blood Pressure 120/82 114/67 Blood Pressure [Left Arm] O2 Sat by Pulse 93 L 94 L Oximetry Fraction of Inspired Oxygen (FIO2) 05/24/24 05/24/24 15:29 17:00 Temperature Pulse Rate 75 72 Pulse Rate [ Pulse Oximetery ] Respiratory 20 Rate Blood Pressure 122/71 Blood Pressure [Left Arm] O2 Sat by Pulse 95 Oximetry Fraction of Inspired Oxygen (FIO2) Medical Decision Making - Medical Decision Making The patient had chest x-ray that I interpreted as showing changes consistent with congestive heart failure. No pneumothorax. No definite infiltrate. Patient is a 79-year-old woman brought for worsening dyspnea and orthopnea. The patient does appear to have mixed picture mainly CHF but also probably some COPD. The patient will have admission for additional evaluation and treatment. There is possible infiltrate versus what seems more likely this point atelectasis, procalcitonin is pending. Was pt. sent in by a medical professional or institution (, PA, RECREATION THERAPY TEACHER, urgent care, hospital, or [facility]...) When possible be specific @ -[No] Did you speak to anyone other than the patient for history (EMS, parent, family, police, friend...)? What history was obtained from this source @ -[No] Did you review nursing and triage notes (agree or disagree)? Why? @ -[I reviewed and agree with nursing and triage notes] Were old charts reviewed (outside hosp., previous admission, EMS record, old EKG, old radiological studies, urgent care reports/EKG's, [facility] records)? Report findings @ -[No old charts were reviewed] Differential Diagnosis (chest pain, altered mental status, abdominal pain women, abdominal pain men, vaginal bleeding, weakness, fever, dyspnea, syncope, headache, dizziness, GI bleed, back pain, seizure, CVA, palpatations, mental health, musculoskeletal)? @ -[Differential Dyspnea: Coronary syndrome, arrhythmia, tamponade, asthma, COPD, pulmonary embolism, pneumonia, pneumothorax, pulmonary effusion, anaphylaxis, diabetic ketoacidosis, flailed chest, pulmonary contusion, diaphragmatic rupture, anemia, neuromuscular, this is not meant to be an all-inclusive list. EKG interpreted by me (3pts min.). @ -[I interpreted as above] X-rays interpreted by me (1pt min.). @ -[I interpreted as above CT interpreted by me (1pt min.). @ -[None done] U/S interpreted by me (1pt. min.). @ -[None done] What testing was considered but not performed or refused? (CT, X-rays, U/S, labs)? Why? @ -[None] What meds were considered but not given or refused? Why? @ -[None] Did you discuss the management of the patient with other professionals (professionals i.e. , PA, RECREATION THERAPY TEACHER, lab, RT, psych nurse, social worker aide, acid adjuster, teacher, commissioned security officer, lead case manager)? Give summary @ -[Case discussed with admitting physician and treatment recommendations are incorporated Was smoking cessation discussed for >3mins.? @ -[No] Was critical care preformed (if so, how long)? @ -[Yes, 30 minutes Were there social determinants of health that impacted care today? How? (Homelessness, low income, unemployed, alcoholism, drug addiction, transportation, low edu. Level, literacy, decrease access to med. care, assisted, rehab)? @ -[No] Was there de-escalation of care discussed even if they declined (Discuss DNR or withdrawal of care, Hospice)? DNR status @ -[No] What co-morbidities impacted this encounter? (DM, HTN, Smoking, COPD, CAD, Cancer, CVA, ARF, Chemo, Hep., AIDS, mental health diagnosis, sleep apnea, morbid obesity)? @ -[COPD, chronic kidney disease Was patient admitted / discharged? Hospital course, mention meds given and route, prescriptions, significant lab abnormalities, going to OR and other pertinent info. @ -[As above, patient will be admitted to have further treatment for dyspnea of probable mixed etiology with component of congestive heart failure and COPD. Patient to have consults with pulmonology and cardiology Undiagnosed new problem with uncertain prognosis? @ -[No] Drug Therapy requiring intensive monitoring for toxicity (Heparin, Nitro, Insulin, Cardizem)? @ -[No] Were any procedures done? @ -[No] Diagnosis/symptom? @ -[Acute dyspnea Acute exacerbation of COPD Acute exacerbation of congestive heart failure Possible pneumonia Acute, or Chronic, or Acute on Chronic? @ -[Acute on chronic Uncomplicated (without systemic symptoms) or Complicated (systemic symptoms)? @ -[Complicated by dyspnea Side effects of treatment? @ -[No] Exacerbation, Progression, or Severe Exacerbation? @ -[No] Poses a threat to life or bodily function? How? (Chest pain, USA, SC, pneumonia, PE, COPD, DKA, ARF, appy, cholecystitis, CVA, Diverticulitis, Homicidal, Suicidal, threat to staff... and all critical care pts) @ -[Yes - Lab Data Result diagrams: 06/01/24 06:29 06/01/24 06:29 Lab Results 05/24/24 05/24/24 05/24/24 Range/Units 00:03 00:03 00:03 WBC 10.0 (3.8-10.6) k/uL RBC 4.03 (3.80-5.40) m/uL Hgb 12.1 (11.4-16.0) gm/dL Hct 37.9 (34.0-46.0) % MCV 94.1 (80.0-100.0) fL MCH 30.0 (25.0-35.0) pg MCHC 31.9 (31.0-37.0) g/dL RDW 15.2 (11.5-15.5) % Plt Count 201 (150-450) k/uL MPV 7.8 Neutrophils % 70 % Lymphocytes % 15 % Monocytes % 6 % Eosinophils % 6 % Basophils % 0 % Neutrophils # 7.0 (1.3-7.7) k/uL Lymphocytes # 1.5 (1.0-4.8) k/uL Monocytes # 0.6 (0-1.0) k/uL Eosinophils # 0.6 (0-0.7) k/uL Basophils # 0.0 (0-0.2) k/uL Hypochromasia Slight PT 11.4 (10.0-12.5) sec INR 1.1 (<1.2) APTT 27.7 (22.0-30.0) sec D-Dimer 0.44 (<0.60) mg/L FEU Sodium 140 (137-145) mmol/L Potassium 4.2 (3.5-5.1) mmol/L Chloride 100 (98-107) mmol/L Carbon Dioxide 36 H (22-30) mmol/L Anion Gap 4 mmol/L BUN 53 H (7-17) mg/dL Creatinine 2.15 H (0.52-1.04) mg/dL Est GFR (CKD-EPI)AfAm 25 (>60 ml/min/1.73 sqM) Est GFR (CKD-EPI)NonAf 21 (>60 ml/min/1.73 sqM) Glucose 122 H (74-99) mg/dL Plasma Lactic Acid Cliff (0.7-2.0) mmol/L Calcium 9.2 (8.4-10.2) mg/dL Total Bilirubin 1.2 (0.2-1.3) mg/dL AST 25 (14-36) U/L ALT 15 (4-34) U/L Alkaline Phosphatase 112 (38-126) U/L Troponin I (0.000-0.034) ng/mL NT-Pro-B Natriuret Pep 11809 pg/mL Total Protein 6.7 (6.3-8.2) g/dL Albumin 3.9 (3.5-5.0) g/dL Procalcitonin (0.02-0.50) ng/mL Influenza Type A (PCR) (Not Detectd) Influenza Type B (PCR) (Not Detectd) RSV (PCR) (Not Detectd) SARS-CoV-2 (PCR) (Not Detectd) 05/24/24 05/24/24 05/24/24 Range/Units 00:03 00:03 00:03 WBC (3.8-10.6) k/uL RBC (3.80-5.40) m/uL Hgb (11.4-16.0) gm/dL Hct (34.0-46.0) % MCV (80.0-100.0) fL MCH (25.0-35.0) pg MCHC (31.0-37.0) g/dL RDW (11.5-15.5) % Plt Count (150-450) k/uL MPV Neutrophils % % Lymphocytes % % Monocytes % % Eosinophils % % Basophils % % Neutrophils # (1.3-7.7) k/uL Lymphocytes # (1.0-4.8) k/uL Monocytes # (0-1.0) k/uL Eosinophils # (0-0.7) k/uL Basophils # (0-0.2) k/uL Hypochromasia PT (10.0-12.5) sec INR (<1.2) APTT (22.0-30.0) sec D-Dimer (<0.60) mg/L FEU Sodium (137-145) mmol/L Potassium (3.5-5.1) mmol/L Chloride (98-107) mmol/L Carbon Dioxide (22-30) mmol/L Anion Gap mmol/L BUN (7-17) mg/dL Creatinine (0.52-1.04) mg/dL Est GFR (CKD-EPI)AfAm (>60 ml/min/1.73 sqM) Est GFR (CKD-EPI)NonAf (>60 ml/min/1.73 sqM) Glucose (74-99) mg/dL Plasma Lactic Acid Cliff 0.9 (0.7-2.0) mmol/L Calcium (8.4-10.2) mg/dL Total Bilirubin (0.2-1.3) mg/dL AST (14-36) U/L ALT (4-34) U/L Alkaline Phosphatase (38-126) U/L Troponin I 0.036 H* (0.000-0.034) ng/mL NT-Pro-B Natriuret Pep pg/mL Total Protein (6.3-8.2) g/dL Albumin (3.5-5.0) g/dL Procalcitonin (0.02-0.50) ng/mL Influenza Type A (PCR) Not Detected (Not Detectd) Influenza Type B (PCR) Not Detected (Not Detectd) RSV (PCR) Not Detected (Not Detectd) SARS-CoV-2 (PCR) Not Detected (Not Detectd) 05/24/24 Range/Units 00:03 WBC (3.8-10.6) k/uL RBC (3.80-5.40) m/uL Hgb (11.4-16.0) gm/dL Hct (34.0-46.0) % MCV (80.0-100.0) fL MCH (25.0-35.0) pg MCHC (31.0-37.0) g/dL RDW (11.5-15.5) % Plt Count (150-450) k/uL MPV Neutrophils % % Lymphocytes % % Monocytes % % Eosinophils % % Basophils % % Neutrophils # (1.3-7.7) k/uL Lymphocytes # (1.0-4.8) k/uL Monocytes # (0-1.0) k/uL Eosinophils # (0-0.7) k/uL Basophils # (0-0.2) k/uL Hypochromasia PT (10.0-12.5) sec INR (<1.2) APTT (22.0-30.0) sec D-Dimer (<0.60) mg/L FEU Sodium (137-145) mmol/L Potassium (3.5-5.1) mmol/L Chloride (98-107) mmol/L Carbon Dioxide (22-30) mmol/L Anion Gap mmol/L BUN (7-17) mg/dL Creatinine (0.52-1.04) mg/dL Est GFR (CKD-EPI)AfAm (>60 ml/min/1.73 sqM) Est GFR (CKD-EPI)NonAf (>60 ml/min/1.73 sqM) Glucose (74-99) mg/dL Plasma Lactic Acid Cliff (0.7-2.0) mmol/L Calcium (8.4-10.2) mg/dL Total Bilirubin (0.2-1.3) mg/dL AST (14-36) U/L ALT (4-34) U/L Alkaline Phosphatase (38-126) U/L Troponin I (0.000-0.034) ng/mL NT-Pro-B Natriuret Pep pg/mL Total Protein (6.3-8.2) g/dL Albumin (3.5-5.0) g/dL Procalcitonin 0.16 (0.02-0.50) ng/mL Influenza Type A (PCR) (Not Detectd) Influenza Type B (PCR) (Not Detectd) RSV (PCR) (Not Detectd) SARS-CoV-2 (PCR) (Not Detectd) - EKG Data -: EKG Interpreted by Wy EKG shows normal: sinus rhythm (Alternating with paced rhythm, rate 87 bpm), axis (Right axis deviation), QRS complexes (Bundle branch block pattern) Interpretation: other (Possible old anterior infarct) Disposition Clinical Impression: Congestive heart failure, COPD (chronic obstructive pulmonary disease), Elevated troponin Disposition: ADMITTED IP TO THIS HOSP Condition: Fair Is patient prescribed a controlled substance at d/c from ED?: No
--- NOTE | 2024-05-24 00:35 | XR ---
EXAMINATION TYPE: XR chest 2V DATE OF EXAM: 05/24/2024 COMPARISON: Chest x-ray September 10, 2023 HISTORY: Difficulty in breathing. TECHNIQUE: Frontal and lateral views of the chest are obtained. FINDINGS: Gross cardiomegaly with multi lead pacemaker is redemonstrated. Mild central vascular tram estion is thought present. No pleural effusion or pneumothorax is seen. There is right basilar opacit y. The osseous structures are intact. IMPRESSION: Cardiomegaly with mild central vascular congestion suggesting CHF exacerbation/fluid ove rload state. In addition there is focal right basilar infiltrate and/or atelectasis seen posteriorly best on lateral view. [facility], , 05/24/2024 12:33 AM
[2024-05-24 00:53] LABS: INR 1.1 (<1.2); Partial Thromboplastin Time 27.7 sec (22.0-30.0); Prothrombin Time 11.4 sec (10.0-12.5)
[2024-05-24 00:58] LABS: ALT 15 U/L (4-34); AST 25 U/L (14-36); African American GFR (CKD) 25 (>60 ml/min/1.73 sqM); Albumin 3.9 g/dL (3.5-5.0); Alkaline Phosphatase 112 U/L (38-126); Anion Gap 4 mmol/L; Blood Urea Nitrogen 53 mg/dL (7-17); Calcium 9.2 mg/dL (8.4-10.2); Carbon Dioxide 36 mmol/L (22-30); Chloride 100 mmol/L (98-107); Glucose 122 mg/dL (74-99); Non-African American GFR(CKD) 21 (>60 ml/min/1.73 sqM); Potassium 4.2 mmol/L (3.5-5.1); Sodium 140 mmol/L (137-145); Total Bilirubin 1.2 mg/dL (0.2-1.3); Total Protein 6.7 g/dL (6.3-8.2)
[2024-05-24 01:07] LABS: NT-Pro-B-Type Natriuretic Pept 10600 pg/mL
[2024-05-24] MEDS ORDERED: ALBUTEROL NEBULIZED 2.5 MG/3 ML INHALATION PRN (03:06)
[2024-05-24] MEDS: FUROSEMIDE 10 MG/ML 4 ML VIAL IV SCH (03:12)
[2024-05-24] MEDS: PANTOPRAZOLE 40 MG TABLET PO SCH (07:41)
[2024-05-24] MEDS: SYMBICORT 80-4.5 MCG INHALER INHALATION SCH (08:17)
[2024-05-24] MEDS: IPRATROPIUM-ALBUTEROL 3 ML NEB INHALATION SCH (08:17)
[2024-05-24] MEDS: IPRATROPIUM 0.5 MG/2.5 ML NEBU INHALATION SCH (08:17)
[2024-05-24] MEDS ORDERED: predniSONE 10 MG TAB PO SCH (09:00)
[2024-05-24] MEDS ORDERED: MAGNESIUM OXIDE 400 MG TAB PO SCH (09:00)
[2024-05-24] MEDS ORDERED: TAMSULOSIN 0.4 MG CAP.ER.24H PO SCH (09:00)
[2024-05-24] MEDS ORDERED: acetaZOLAMIDE 250 MG TAB PO SCH (09:00)
[2024-05-24] MEDS ORDERED: CHOLECALCIFEROL 25 MCG (1000 IU) TABLET PO SCH (09:00)
[2024-05-24] MEDS: TORSEMIDE 20 MG TAB PO SCH (09:22)
[2024-05-24] MEDS: POTASSIUM CHLORIDE ER 20 MEQ TAB.ER PO SCH (09:22)
[2024-05-24] MEDS: APIXABAN 5 MG TAB PO SCH (09:22)
--- NOTE | 2024-05-24 14:47 | P.HPIM ---
History of Present Illness H&P Date: 05/24/24 History of present illness; patient is 79-year-old lady with past medical history significant for hypertension, COPD, CHF presented the ER because of shortness of breath. Patient stated that she was all right this morning when she started Noticing shortness of breath. Shortness of breath was present on rest as on exertion. Patient was complaining of chest tightness. Denied any chest pain. Patient has chronic cough. There is no complaint of fever or chills. Patient was complaining of orthopnea. Denied any swelling of lower extremities. There was no complaint of palpitations. Patient denied any nausea, vomiting or abdominal pain. Because of worsening shortness of breath, patient presented the ER. Initial lab work done in the ER showed CBC 10, hemoglobin 12.1, platelet count 201, sodium 140, potassium 4.2, BUN 53, creatinine 2.15, glucose 122 troponin 0.036 Influenza A not detected Influenza B not detected RSV not detected COVID-19 not detected EKG done in the ER showed heart rate of 87, paced rhythm Chest x-ray done in the ER showed cardiomegaly with mild central vascular co ngestion, suggesting CHF exacerbation Patient admitted to internal medicine service REVIEW OF SYSTEMS: CONSTITUTIONAL: No fever, no malaise, no fatigue. HEENT: No recent visual problems or hearing problems. Denied any sore throat. CARDIOVASCULAR: As mentioned above PULMONARY: As mentioned above GASTROINTESTINAL: No diarrhea, no nausea, no vomiting, no abdominal pain. NEUROLOGICAL: No headaches, no weakness, no numbness. HEMATOLOGICAL: Denies any bleeding or petechiae. GENITOURINARY: Denies any burning micturition, frequency, or urgency. MUSCULOSKELETAL/RHEUMATOLOGICAL: Denies any joint pain, swelling, or any muscle pain. ENDOCRINE: Denies any polyuria or polydipsia. The rest of the 14-point review of systems is negative. PHYSICAL EXAMINATION: GENERAL: The patient is alert and oriented x3, not in any acute distress. Ill looking HEENT: Pupils are round and equally reacting to light. EOMI. No scleral icterus. No conjunctival pallor. Normocephalic, atraumatic. No pharyngeal erythema. No thyromegaly. CARDIOVASCULAR: S1 and S2 present. No murmurs, rubs, or gallops. PULMONARY: Tachypneic, coarse breath sound bilaterally, rhonchi audible ABDOMEN: Soft, nontender, nondistended, normoactive bowel sounds. No palpable organomegaly. MUSCULOSKELETAL: No joint swelling or deformity. EXTREMITIES: No cyanosis, clubbing, or pedal edema. NEUROLOGICAL: Gross neurological examination did not reveal any focal deficits. SKIN: No rashes. Assessment and plan Acute on chronic systolic heart failure Acute COPD exacerbation Atrial fibrillation, paroxysmal Acute hypoxic respiratory failure Pulmonary Hypertension History of pacemaker implantation Acute on chronic kidney disease Mild hyperkalemia Monitor vital signs Monitor CBC Monitor CMP Continue telemetry monitoring Trend troponin Ordered breathing treatments Ordered IV Lasix 40 mg every 12 IV Solu-Medrol Resume home medicine consult cardiology Consult pulmonary Labs and medication were reviewed.. Continue same treatment. Continue with symptomatic treatment. Resume home medication. Monitor labs and vitals. DVT and GI prophylaxis. Further recommendations as per clinical course of the patient Dictation was produced using [employer] dictation software. please excuse any grammatical, word or spelling errors. Past Medical History Past Medical History: Atrial Fibrillation, Asthma, Cancer, Heart Failure, COPD, GERD/Reflux, Skin Disorder Additional Past Medical History / Comment(s): COPD, asthma, breast cancer-right lumpectomy and radiation therapy 25 years ago, wears 3L NC at home, chronic atrial fibrillation, CHF (systolic ). Arthritis, dry patch on right leg, gout History of Any Multi-Drug Resistant Organisms: None Reported Past Surgical History: Section, Heart Catheterization, Hernia Repair, Pacemaker Additional Past Surgical History / Comment(s): left hand surgery for broken index and middle finger Past Anesthesia/Blood Transfusion Reactions: No Reported Reaction Type of Cardiac Device: Permanent Pacemaker Device Placement Date:: 07/2021 Past Psychological History: Depression Smoking Status: Former smoker Past Alcohol Use History: None Reported Past Drug Use History: None Reported - Past Family History Mother Family Medical History: Diabetes Mellitus Medications and Allergies Home Medications Medication Instructions Recorded Confirmed Type Apixaban [Eliquis] 5 mg PO BID 11/12/22 05/24/24 History Ipratropium/Albuter 20-100Mcg 1 puff INHALATION RT-QID PRN 11/12/22 05/24/24 History [Combivent Respimat 20-100Mcg Inhaler] Metoprolol Succinate [Metoprolol 75 mg PO HS 11/12/22 05/24/24 History Succinate ER] Montelukast [Singulair] 10 mg PO HS 11/12/22 05/24/24 History Albuterol Inhaler [Ventolin Hfa 2 puff INHALATION RT-QID PRN #1 11/19/22 05/24/24 Rx Inhaler] each Ipratropium-Albuterol Nebulize 3 ml INHALATION RT-QID 06/25/23 05/24/24 History [Duoneb 0.5 mg-3 mg/3 ml Soln] Torsemide [Demadex] 20 mg PO BID@0900,1600 tab 07/13/23 05/24/24 Rx Potassium Chloride ER [K-Dur 20] 20 meq PO DAILY 08/25/23 05/24/24 History Empagliflozin [Jardiance] 10 mg PO DAILY 05/24/24 05/24/24 History Ferrous Sulfate [Feosol] 325 mg PO DAILY 05/24/24 05/24/24 History Fexofenadine HCl [Jamee Allergy] 180 mg PO HS 05/24/24 05/24/24 History Pantoprazole Sodium [Protonix] 40 mg PO BID 05/24/24 05/24/24 History allopurinoL [Zyloprim] 150 mg PO DAILY 05/24/24 05/24/24 History Allergies Allergy/AdvReac Type Severity Reaction Status Date / Time aspirin Allergy Anaphylaxis Verified 05/24/24 08:10 ibuprofen Allergy Anaphylaxis Verified 05/24/24 08:10 Physical Exam Vitals: Vital Signs Temp Pulse Resp BP Pulse Ox FiO2 05/24/24 09:21 71 18 110/61 97 05/24/24 08:31 72 05/24/24 08:19 70 05/24/24 07:35 97.6 F 68 20 117/79 94 L 05/24/24 05:35 73 15 117/73 96 05/24/24 04:29 70 17 118/78 95 05/24/24 03:35 40 05/24/24 03:34 40 05/24/24 03:28 78 20 107/66 94 L 05/24/24 02:10 74 21 110/68 92 L 05/24/24 01:00 79 23 123/63 93 L 05/24/24 00:27 72 16 114/74 94 L 05/24/24 00:01 22 05/23/24 23:54 98.4 F 84 20 120/62 94 L Intake and Output 05/23/24 05/24/24 05/24/24 22:59 06:59 14:59 Other: Weight 73.482 kg Results CBC & Chem 7: 05/24/24 00:03 05/24/24 00:03 Labs: Abnormal Lab Results - Last 24 Hours (Table) 05/24/24 05/24/24 Range/Units 00:03 00:03 Carbon Dioxide 36 H (22-30) mmol/L BUN 53 H (7-17) mg/dL Creatinine 2.15 H (0.52-1.04) mg/dL Glucose 122 H (74-99) mg/dL Troponin I 0.036 H* (0.000-0.034) ng/mL
--- NOTE | 2024-05-24 15:11 | P.CNPUL ---
History of Present Illness Consult date: 05/24/24 Requesting physician: Carlton Teresa Reason for consult: dyspnea Chief complaint: Shortness of breath, cough, congestion History of present illness: This is a 79-year-old female patient with a known history of breast cancer status post radiation with lung damage greater than 25 years ago, chronic obstructive pulmonary disease, chronic hypoxemic respiratory failure on home oxygen at 2 to 3 L, obstructive sleep apnea on home BiPAP, atrial fibrillation anticoagulated with Eliquis, gout, depression, former smoker. He presented here to the emergency room earlier this morning with increasing shortness of breath cough and congestion. Several family members in the home have been sick with upper respiratory infections. X-ray shows cardiomegaly with mild central vascular congestion and fluid volume overload. There is a focal right basilar infiltrate/atelectasis. White count 10.0. Hemoglobin 12.1. Platelets 201. INR 1.1. D-dimer 0.44. Sodium 140. Potassium 4.0. Bicarb 36. BUN 53. Creatinine 2.15. Glucose 122. Troponin 0.036, 0.030, 0.024. proBNP 10,600. Procalcitonin negative at 0.6. Viral screen negative. She is seen in consultation in the emergency department. She is currently sitting up on the stretcher. Awake and alert in no acute distress. She had initially been on BiPAP 16/5 and 40% FiO2. She is currently on oxygen at 5 L/min per nasal cannula. Feeling a bit better since she came in. No fever or chills. No hemoptysis. He has been initiated on DuoNeb inhalations, Symbicort, Singulair, Solu-Medrol. Anticoagulated with Eliquis. Initiated on Lasix 40 mg IV every 12 hours. Review of Systems REVIEW OF SYSTEMS: CONSTITUTIONAL: Denies any recent significant weight loss or weight gain. EYES: Denies change in vision. EARS, NOSE, MOUTH, THROAT: Denies headaches, denies sore throat. CARDIOVASCULAR: Denies chest pain, palpitations or syncopal episodes. RESPIRATORY: Positive for shortness of breath, cough, congestion no hemoptysis. GASTROINTESTINAL: Denies change in appetite, denies abdominal pain GENITOURINARY: Denies hematuria, denies infections. MUSKULOSKELETAL: Denies pain, denies swelling. INTEGUMENTARY: Denies rash, denies eczema. NEUROLOGICAL: Denies recent memory loss, no recent seizure activity. PSYCHIATRIC: Denies anxiety, denies depression. HEMATOLOGIC/LYMPHATIC: Denies anemia, denies enlarged lymph nodes. Past Medical History Past Medical History: Atrial Fibrillation, Asthma, Cancer, Heart Failure, COPD, GERD/Reflux, Skin Disorder Additional Past Medical History / Comment(s): COPD, asthma, breast cancer-right lumpectomy and radiation therapy 25 years ago, wears 3L NC at home, chronic atrial fibrillation, CHF (systolic ). Arthritis, dry patch on right leg, gout History of Any Multi-Drug Resistant Organisms: None Reported Past Surgical History: Section, Heart Catheterization, Hernia Repair, Pacemaker Additional Past Surgical History / Comment(s): left hand surgery for broken index and middle finger Past Anesthesia/Blood Transfusion Reactions: No Reported Reaction Type of Cardiac Device: Permanent Pacemaker Device Placement Date:: 07/2021 Past Psychological History: Depression Smoking Status: Former smoker Past Alcohol Use History: None Reported Past Drug Use History: None Reported - Past Family History Mother Family Medical History: Diabetes Mellitus Medications and Allergies Home Medications Medication Instructions Recorded Confirmed Type Apixaban [Eliquis] 5 mg PO BID 11/12/22 05/24/24 History Ipratropium/Albuter 20-100Mcg 1 puff INHALATION RT-QID PRN 11/12/22 05/24/24 History [Combivent Respimat 20-100Mcg Inhaler] Metoprolol Succinate [Metoprolol 75 mg PO HS 11/12/22 05/24/24 History Succinate ER] Montelukast [Singulair] 10 mg PO HS 11/12/22 05/24/24 History Albuterol Inhaler [Ventolin Hfa 2 puff INHALATION RT-QID PRN #1 11/19/22 05/24/24 Rx Inhaler] each Ipratropium-Albuterol Nebulize 3 ml INHALATION RT-QID 06/25/23 05/24/24 History [Duoneb 0.5 mg-3 mg/3 ml Soln] Torsemide [Demadex] 20 mg PO BID@0900,1600 tab 07/13/23 05/24/24 Rx Potassium Chloride ER [K-Dur 20] 20 meq PO DAILY 08/25/23 05/24/24 History Empagliflozin [Jardiance] 10 mg PO DAILY 05/24/24 05/24/24 History Ferrous Sulfate [Feosol] 325 mg PO DAILY 05/24/24 05/24/24 History Fexofenadine HCl [Jamee Allergy] 180 mg PO HS 05/24/24 05/24/24 History Pantoprazole Sodium [Protonix] 40 mg PO BID 05/24/24 05/24/24 History allopurinoL [Zyloprim] 150 mg PO DAILY 05/24/24 05/24/24 History Allergies Allergy/AdvReac Type Severity Reaction Status Date / Time aspirin Allergy Anaphylaxis Verified 05/24/24 08:10 ibuprofen Allergy Anaphylaxis Verified 05/24/24 08:10 Physical Exam Vitals: Vital Signs Temp Pulse Resp BP Pulse Ox FiO2 05/24/24 14:00 76 20 114/67 94 L 05/24/24 12:00 72 20 120/82 93 L 05/24/24 09:21 71 18 110/61 97 05/24/24 08:31 72 05/24/24 08:19 70 05/24/24 07:35 97.6 F 68 20 117/79 94 L 05/24/24 05:35 73 15 117/73 96 05/24/24 04:29 70 17 118/78 95 05/24/24 03:35 40 05/24/24 03:34 40 05/24/24 03:28 78 20 107/66 94 L 05/24/24 02:10 74 21 110/68 92 L 05/24/24 01:00 79 23 123/63 93 L 05/24/24 00:27 72 16 114/74 94 L 05/24/24 00:01 22 05/23/24 23:54 98.4 F 84 20 120/62 94 L Intake and Output 05/23/24 05/24/24 05/24/24 22:59 06:59 14:59 Other: Weight 73.482 kg GENERAL EXAM: Alert, any 9-year-old female, on 5 L nasal cannula, fairly comfortable in no apparent distress. HEAD: Normocephalic. EYES: Normal reaction of pupils, equal size. NOSE: Clear with pink turbinates. THROAT: No erythema or exudates. NECK: No masses, no JVD. CHEST: No chest wall deformity. LUNGS: Equal air entry with few scattered rhonchi. CVS: S1 and S2 normal with no audible murmur, regular rhythm. ABDOMEN: No hepatosplenomegaly, normal bowel sounds, no guarding or rigidity. SPINE: No scoliosis or deformity SKIN: No rashes CENTRAL NERVOUS SYSTEM: No focal deficits, tone is normal in all 4 extremities. EXTREMITIES: There is no peripheral edema. No clubbing, no cyanosis. Peripheral pulses are intact. Results - Laboratory Findings CBC and BMP: 05/24/24 00:03 05/24/24 00:03 PT/INR, D-dimer PT 11.4 sec (10.0-12.5) 05/24/24 00:03 INR 1.1 (<1.2) 05/24/24 00:03 D-Dimer 0.44 mg/L FEU (<0.60) 05/24/24 00:03 Abnormal lab findings: Abnormal Labs 05/24/24 05/24/24 00:03 00:03 Carbon Dioxide 36 H BUN 53 H Creatinine 2.15 H Glucose 122 H Troponin I 0.036 H* - Diagnostic Findings Chest x-ray: image reviewed Assessment and Plan Assessment: Acute exacerbation of chronic systolic congestive heart failure. Ejection fraction 35 to 40% Mild to moderate aortic regurgitation and severe tricuspid regurgitation Severe pulmonary hypertension Acute exacerbation of chronic obstructive pulmonary disease Acute on chronic hypoxemic respiratory failure secondary to above Chronic obstructive pulmonary disease, oxygen dependent, maintained on Trelegy and Combivent Former smoker Chronic atrial fibrillation anticoagulated with Eliquis Permanent pacemaker implantation History of gout History of right sided breast cancer status post radiation with "lung damage" greater than 25 years ago Plan: The patient was seen and evaluated Chest x-ray, labs and medications reviewed Continue BiPAP support as needed Currently on 5 L nasal cannula Titrate the FiO2 as tolerated Continue bronchodilators, steroids Procalcitonin negative Continue IV diuretics We will continue to follow and make further recommendations based on her clinical status I have personally seen and examined the patient, performed the documentation and the assessment and plan as written. Number of minutes spent on the visit: 20 Dictation was produced using [employer] dictation software. Please excuse any grammatical, word or spelling errors.
[2024-05-24] MEDS: methylPREDNISolone SOD SUCCI 40 MG/ML 1 ML VIAL IV SCH (15:34)
[2024-05-24] MEDS: METOPROLOL SUCCINATE (ER) 25 MG TAB.ER.24H PO SCH (21:02)
[2024-05-24] MEDS: MONTELUKAST 10 MG TAB PO SCH (21:02)
[2024-05-25] MEDS: IPRATROPIUM-ALBUTEROL 3 ML NEB INHALATION PRN (00:18)
[2024-05-25] MEDS ORDERED: HEPARIN SODIUM 1,000 UN/ML (10ML VL) IV PRN (06:01)
--- NOTE | 2024-05-25 06:04 | P.CRDCN ---
History of Present Illness Consult date: 05/25/24 History of present illness: The patient is a pleasant 79-year-old female patient who is known to our service from before with a past medical history significant for history of cardiomyopathy with an echo from 2022 showing an EF between 35 to 40% with moderate mitral regurgitation and severe pulmonary hypertension as well as permanent atrial fibrillation and also permanent pacemaker as well as valvular heart disease and COPD and chronic hypoxic respiratory failure and also history of heart failure which she presented to the hospital with a progressive exertional dyspnea associated with bilateral lower extremity edema and also chest tightness. She has been compliant with the current dose of oral diuretics at as an outpatient but she clearly was not compliant with low-sodium diet. She reports no dizziness or lightheadedness and no feeling of heart racing or f luttering and no presyncope or syncope and no other cardiovascular symptoms but she underwent further investigation including a chest x-ray came in to be abnormal showing evidence of heart failure with vascular congestions and also NT proBNP came in to be severely elevated. She is known to have chronic kidney disease and currently she is in acute on chronic renal failure. CBC is within normal limits. Electrolytes are within normal limits. She was admitted to the hospital after she was diagnosed with heart failure. The examination is remarkable for distant heart sounds with a systolic murmur and severe bilateral expiratory wheezing and no edema was noted in the lower extremities. Please note that the patient troponin also came in to be elevated. The EKG showed underlying atrial fibrillation with ventricular paced rhythm. Assessment Acute on chronic hypoxic respiratory failure likely to be multifactorial secondary to COPD and CHF Heart failure exacerbation secondary to heart failure with reduced ejection fraction HFrEF Atrial fibrillation with controlled heart rate Evidence of myocardial injury History of cardiomyopathy Permanent pacemaker COPD/chronic respiratory failure Valvular heart disease Pulmonary hypertension Multiple comorbid conditions Plan DC oral anticoagulation and start the patient on heparin for now Follow-up with the more serial cardiac enzymes Obtain an echo to assess the current status of the ejection fraction Consider maximize medical treatment for cardiomyopathy based on the echo results Decrease the dose of Lasix giving that the patient is in acute on chronic renal failure and she is in more COPD than heart failure at this point Follow-up on the echocardiogram Further recommendation to follow the echo and cardiac enzymes Past Medical History Past Medical History: Atrial Fibrillation, Asthma, Cancer, Heart Failure, COPD, GERD/Reflux, Skin Disorder Additional Past Medical History / Comment(s): COPD, asthma, breast cancer-right lumpectomy and radiation therapy 25 years ago, wears 3L NC at home, chronic atrial fibrillation, CHF (systolic ). Arthritis, dry patch on right leg, gout History of Any Multi-Drug Resistant Organisms: None Reported Past Surgical History: Section, Heart Catheterization, Hernia Repair, Pacemaker Additional Past Surgical History / Comment(s): left hand surgery for broken index and middle finger Past Anesthesia/Blood Transfusion Reactions: No Reported Reaction Type of Cardiac Device: Permanent Pacemaker Device Placement Date:: 07/2021 Past Psychological History: Depression Smoking Status: Former smoker Past Alcohol Use History: None Reported Past Drug Use History: None Reported - Past Family History Mother Family Medical History: Diabetes Mellitus Medications and Allergies Home Medications Medication Instructions Recorded Confirmed Type Apixaban [Eliquis] 5 mg PO BID 11/12/22 05/24/24 History Ipratropium/Albuter 20-100Mcg 1 puff INHALATION RT-QID PRN 11/12/22 05/24/24 Hi story [Combivent Respimat 20-100Mcg Inhaler] Metoprolol Succinate [Metoprolol 75 mg PO HS 11/12/22 05/24/24 History Succinate ER] Montelukast [Singulair] 10 mg PO HS 11/12/22 05/24/24 History Albuterol Inhaler [Ventolin Hfa 2 puff INHALATION RT-QID PRN #1 11/19/22 05/24/24 Rx Inhaler] each Ipratropium-Albuterol Nebulize 3 ml INHALATION RT-QID 06/25/23 05/24/24 History [Duoneb 0.5 mg-3 mg/3 ml Soln] Torsemide [Demadex] 20 mg PO BID@0900,1600 tab 07/13/23 05/24/24 Rx Potassium Chloride ER [K-Dur 20] 20 meq PO DAILY 08/25/23 05/24/24 History Empagliflozin [Jardiance] 10 mg PO DAILY 05/24/24 05/24/24 History Ferrous Sulfate [Feosol] 325 mg PO DAILY 05/24/24 05/24/24 History Fexofenadine HCl [Jamee Allergy] 180 mg PO HS 05/24/24 05/24/24 History Pantoprazole Sodium [Protonix] 40 mg PO BID 05/24/24 05/24/24 History allopurinoL [Zyloprim] 150 mg PO DAILY 05/24/24 05/24/24 History Allergies Allergy/AdvReac Type Severity Reaction Status Date / Time aspirin Allergy Anaphylaxis Verified 05/24/24 08:10 ibuprofen Allergy Anaphylaxis Verified 05/24/24 08:10 Physical Exam Vitals: Vital Signs Temp Pulse Pulse Resp BP BP Pulse Ox 05/25/24 04:37 05/25/24 04:00 97.9 F 71 17 118/75 94 L 05/25/24 00:37 80 05/25/24 00:19 76 05/25/24 00:00 97.9 F 62 18 124/65 97 05/24/24 21:46 80 05/24/24 21:32 78 05/24/24 20:00 97.5 F L 76 18 109/58 93 L 05/24/24 17:00 72 20 122/71 95 05/24/24 15:29 75 05/24/24 15:19 74 05/24/24 14:00 76 20 114/67 94 L 05/24/24 12:00 72 20 120/82 93 L 05/24/24 09:21 71 18 110/61 97 05/24/24 08:31 72 05/24/24 08:19 70 05/24/24 07:35 97.6 F 68 20 117/79 94 L FiO2 05/25/24 04:37 40 05/25/24 04:00 05/25/24 00:37 05/25/24 00:19 40 05/25/24 00:00 05/24/24 21:46 40 05/24/24 21:32 05/24/24 20:00 05/24/24 17:00 05/24/24 15:29 05/24/24 15:19 05/24/24 14:00 05/24/24 12:00 05/24/24 09:21 05/24/24 08:31 05/24/24 08:19 05/24/24 07:35 Intake and Output 05/24/24 05/24/24 05/25/24 14:59 22:59 06:59 Intake Total 130 Balance 130 Intake: IV 10 Invasive Line 1 10 Oral 120 Other: Voiding Method Toilet Toilet # Voids 1 Weight 70.2 kg Results 05/24/24 00:03 05/24/24 00:03 Cardiac Enzymes 05/24/24 Range/Units 07:27 Troponin I 0.024 (0.000-0.034) ng/mL Current Medications Generic Name Dose Route Start Last Admin Trade Name Freq PRN Reason Stop Dose Admin Albuterol Sulfate 2.5 mg 05/24/24 03:06 Albuterol Nebulized 2.5 Mg/3 Ml INHALATION RT-QID PRN Shortness Of Breath Albuterol/Ipratropium 3 ml 05/24/24 03:06 05/25/24 00:18 Ipratropium-Albuterol 3 Ml Neb INHALATION 3 ml RT-QID PRN Administration Shortness Of Breath Albuterol/Ipratropium 3 ml 05/24/24 08:00 05/24/24 21:31 Ipratropium-Albuterol 3 Ml Neb INHALATION 3 ml RT-TID OANH Administration Apixaban 5 mg 05/24/24 09:00 05/24/24 21:02 Apixaban 5 Mg Tab PO 5 mg BID OANH Administration Protocol Budesonide/Formoterol Fumarate 2 puff 05/24/24 08:00 05/24/24 21:31 Symbicort 80-4.5 Mcg Inhaler INHALATION 2 puff RT-BID OANH Administration Dapagliflozin 5 mg 05/25/24 09:00 Dapagliflozin Propanediol 5 Mg Tablet PO DAILY [facility] Ferrous Sulfate 325 mg 05/25/24 09:00 Ferrous Sulfate 325 Mg Tab PO DAILY OANH Furosemide 40 mg 05/24/24 03:00 05/25/24 05:15 Furosemide 10 Mg/Ml 4 Ml Vial IV 40 mg Q12H OANH Administration Ipratropium [place] 0.5 mg 05/24/24 08:00 05/24/24 21:40 Ipratropium 0.5 Mg/2.5 Ml Nebu INHALATION Not Given RT-QID OANH Methylprednisolone Sodium Succinate 40 mg 05/24/24 16:00 05/25/24 00:06 Methylprednisolone Sod Succi 40 Mg/Ml 1 Ml Vial IV 40 mg Q8HR OANH Administration Metoprolol Succinate 75 mg 05/24/24 21:00 05/24/24 21:02 Metoprolol Succinate (Er) 25 Mg Tab.Er.24h PO 75 mg HS OANH Administration Montelukast Sodium 10 mg 05/24/24 21:00 05/24/24 21:02 Montelukast 10 Mg Tab PO 10 mg HS OANH Administration Pantoprazole Sodium 40 mg 05/24/24 07:30 05/24/24 17:06 Pantoprazole 40 Mg Tablet PO 40 mg AC-BID OANH Administration Potassium Chloride 20 meq 05/24/24 09:00 05/24/24 09:22 Potassium Chloride Er 20 Meq Tab.Er PO 20 meq DAILY OANH Administration Sodium Chloride 10 ml 05/24/24 09:00 05/24/24 21:02 Sodium Chloride 0.9% Flush 10 Ml Syringe IV 10 ml BID OANH Administration Intake and Output 05/24/24 05/24/24 05/25/24 14:59 22:59 06:59 Intake Total 130 Balance 130 Intake: IV 10 Invasive Line 1 10 Oral 120 Other: Voiding Method Toilet Toilet # Voids 1 Weight 70.2 kg Patient Weight 05/25/24 06:59 Weight 70.2 kg 05/24/24 00:03 05/24/24 00:03
[2024-05-25] MEDS: HEPARIN SODIUM 1,000 UN/ML (10ML VL) IV ONE (06:06)
[2024-05-25] MEDS: HEPARIN SOD,PORK IN 0.45% NACL 25,000 UNIT in 0.45% NACL 1 250ML.BAG IV SCH (06:17)
[2024-05-25 07:22] LABS: Basophils % (A) 0 %; Eosinophils % (A) 0 %; HCT 36.2 % (34.0-46.0); HGB 11.2 gm/dL (11.4-16.0); Hypochromasia Slight; Lymphocytes # (A) 0.4 k/uL (1.0-4.8); Lymphocytes % (A) 4 %; MCH 29.2 pg (25.0-35.0); MCHC 30.9 g/dL (31.0-37.0); MCV 94.6 fL (80.0-100.0); Mean Platelet Volume 8.9; Monocytes # (A) 0.2 k/uL (0-1.0); Monocytes % (A) 2 %; Neutrophils % (A) 93 %; Platelet Count 214 k/uL (150-450); RBC 3.82 m/uL (3.80-5.40); RDW 15.4 % (11.5-15.5); WBC 8.6 k/uL (3.8-10.6)
[2024-05-25 07:32] LABS: Prothrombin Time 11.4 sec (10.0-12.5)
[2024-05-25 07:59] LABS: ALT 15 U/L (4-34); AST 20 U/L (14-36); African American GFR (CKD) 25 (>60 ml/min/1.73 sqM); Albumin 3.9 g/dL (3.5-5.0); Alkaline Phosphatase 93 U/L (38-126); Anion Gap 7 mmol/L; Blood Urea Nitrogen 64 mg/dL (7-17); Calcium 9.4 mg/dL (8.4-10.2); Carbon Dioxide 38 mmol/L (22-30); Chloride 97 mmol/L (98-107); Glucose 136 mg/dL (74-99); Non-African American GFR(CKD) 22 (>60 ml/min/1.73 sqM); Potassium 4.7 mmol/L (3.5-5.1); Sodium 142 mmol/L (137-145); Total Bilirubin 0.9 mg/dL (0.2-1.3); Total Protein 6.6 g/dL (6.3-8.2)
[2024-05-25] MEDS: DAPAGLIFLOZIN PROPANEDIOL 5 MG TABLET PO SCH (09:27)
[2024-05-25] MEDS: FERROUS SULFATE 325 MG TAB PO SCH (09:27)
--- NOTE | 2024-05-25 12:15 | P.PN ---
Subjective Progress Note Date: 05/25/24 Principal diagnosis: CHF. This is a 79-year-old female patient with a known history of breast cancer status post radiation with lung damage greater than 25 years ago, chronic obst ructive pulmonary disease, chronic hypoxemic respiratory failure on home oxygen at 2 to 3 L, obstructive sleep apnea on home BiPAP, atrial fibrillation anticoagulated with Eliquis, gout, depression, former smoker. He presented here to the emergency room earlier this morning with increasing shortness of breath cough and congestion. Several family members in the home have been sick with upper respiratory infections. X-ray shows cardiomegaly with mild central vascular congestion and fluid volume overload. There is a focal right basilar infiltrate/atelectasis. White count 10.0. Hemoglobin 12.1. Platelets 201. INR 1.1. D-dimer 0.44. Sodium 140. Potassium 4.0. Bicarb 36. BUN 53. Crea tinine 2.15. Glucose 122. Troponin 0.036, 0.030, 0.024. proBNP 10,600. Procalcitonin negative at 0.6. Viral screen negative. She is seen in consultation in the emergency department. She is currently sitting up on the stretcher. Awake and alert in no acute distress. She had initially been on BiPAP 16/5 and 40% FiO2. She is currently on oxygen at 5 L/min per nasal cannula. Feeling a bit better since she came in. No fever or chills. No hemoptysis. He has been initiated on DuoNeb inhalations, Symbicort, Singulair, Solu-Medrol. Anticoagulated with Eliquis. Initiated on Lasix 40 mg IV every 12 hours. Progress note dated May 25, 2024. 79-year-old female seen yesterday in consultation. The patient was admitted with shortness of breath, was thought to have CHF. Currently, she is on 3 L of oxygen. She did use BiPAP, with settings of 16/5, and 40%. She is sitting up in a chair next to her hospital bed. She states that her breathing is improved. Current labs include a white count 8.6, hemoglobin 9.2, macro 36.2, and a platelet count of 214,000. Sodium 142, potassium 4.7, chlorides 97, CO2 38, BUN 64, creatinine 2.11. Glucose is 136. Objective - Vital Signs Vital signs: Vital Signs Temp 97.9 F 05/25/24 08:00 Pulse 69 05/25/24 09:22 Resp 20 05/25/24 08:10 BP 102/56 05/25/24 08:00 Pulse Ox 95 05/25/24 09:13 FiO2 40 05/25/24 04:37 Intake & Output 05/24/24 05/25/24 05/25/24 18:59 06:59 18:59 Intake Total 120 310 240 Balance 120 310 240 Weight 77 kg Intake: IV 10 Invasive Line 1 10 Oral 120 240 Tube Feeding 300 Other: Voiding Method Toilet Toilet # Voids 1 - Exam No acute distress, oriented 3. The patient is currently on 3 L nasal cannula. HEENT examination is grossly unremarkable. Mucous membranes are moist. No oral lesions. Neck supple. Full range of motion. No adenopathy thyromegaly or neck vein distention. Cardiovascular examination reveals regular rhythm rate. S1-S2 normal. No S3 or S4. No discernible murmur noted. Lungs reveal scattered bilateral rhonchi, and basilar crackles. No wheezes. Abdomen soft bowel sounds are heard. No masses or tenderness. Extremities are intact. No cyanosis clubbing or edema. Skin is without rash or lesion. Neurologic examination is brief but nonfocal. - Labs CBC & Chem 7: 05/25/24 06:35 05/25/24 06:35 Labs: Abnormal Lab Results - Last 24 Hours (Table) 05/25/24 05/25/24 05/25/24 Range/Units 06:35 06:35 11:03 Hgb 11.2 L (11.4-16.0) gm/dL MCHC 30.9 L (31.0-37.0) g/dL Neutrophils # 8.0 H (1.3-7.7) k/uL Lymphocytes # 0.4 L (1.0-4.8) k/uL APTT 41.1 H (22.0-30.0) sec Chloride 97 L (98-107) mmol/L Carbon Dioxide 38 H (22-30) mmol/L BUN 64 H (7-17) mg/dL Creatinine 2.11 H (0.52-1.04) mg/dL Glucose 136 H (74-99) mg/dL Assessment and Plan Assessment: Acute exacerbation of chronic systolic congestive heart failure. Mild to moderate aortic regurgitation and severe tricuspid regurgitation. Severe pulmonary hypertension. Acute exacerbation of chronic obstructive pulmonary disease. Acute on chronic hypoxemic respiratory failure secondary to above. Chronic obstructive pulmonary disease, oxygen dependent. Former smoker. Chronic atrial fibrillation. Permanent pacemaker implantation. History of gout. History of right sided breast cancer status post radiation with "lung damage" greater than 25 years ago. Plan: Plan dated May 25, 2024. The patient is seen today in room 356. She is resting comfortably. She is sitting in the chair next to her hospital bed. She is on 3 L of oxygen by nasal cannula. She denies any significant shortness of breath. She is feeling better. She did use BiPAP last night with settings of 16/5, and 40%. Labs, x- rays, and all medications are reviewed. We will continue to follow and make recommendations along the way. Prognosis is guarded. Time with Patient: Less than 30
--- NOTE | 2024-05-25 13:28 | CA ---
Transthoracic Echo Report Name: Taylor Willingham Age: 79 Gender: F : 1945 Exam Date: 05/25/2024 08:29 Exam Location: [facility] Ht (in): 62 Wt (lb): 154 Ordering Physician: German Corea MD ([id number]) Attending/Referring Phys: In Class Special Education Teacher Fely King RDCS Procedure CPT: Indications: evaluate EF Cardiac Hx: Technical Quality: Good Contrast 1: Total Dose (mL): Contrast 2: Total Dose (mL): MEASUREMENTS (Male / Female) Normal Values 2D ECHO LV Diastolic Diameter PLAX 4.7 cm 4.2 - 5.9 / 3.9 - 5.3 cm LV Systolic Diameter PLAX 4.3 cm IVS Diastolic Thickness 1.0 cm 0.6 - 1.0 / 0.6 - 0.9 cm LVPW Diastolic Thickness 0.9 cm 0.6 - 1.0 / 0.6 - 0.9 cm LV Relative Wall Thickness 0.4 LVOT Diameter 2.1 cm LA Volume 129.8 cm??? 18 - 58 / 22 - 52 cm??? LA Volume Index 73.4 cm???/m??? 16 - 28 cm???/m??? Ascending Aorta Diameter 3.3 cm DOPPLER AV Peak Velocity 141.2 cm/s AV Peak Gradient 8.0 mmHg AV Mean Velocity 103.3 cm/s AV Mean Gradient 4.7 mmHg AV Velocity Time Integral 29.6 cm LVOT Peak Velocity 111.0 cm/s LVOT Peak Gradient 4.9 mmHg LVOT Velocity Time Integral 24.6 cm LVOT Stroke Volume 85.0 cm??? LVOT Stroke Volume Index 49.7 ml/m??? LVOT Cardiac Index 3602.2 cm???/min???m??? AV Area Cont Eq vti 2.9 cm??? AV Area Cont Eq pk 2.7 cm??? TR Peak Velocity 290.9 cm/s TR Peak Gradient 33.8 mmHg Right Atrial Pressure 15.0 mmHg Pulmonary Artery Systolic Pressu 48.8 mmHg Right Ventricular Systolic Press 48.8 mmHg PV Peak Velocity 103.0 cm/s PV Peak Gradient 4.2 mmHg FINDINGS Left Ventricle Left ventricular ejection fraction is estimated at 35-40 %. Left ventricular cavity size normal. Left ventricular wall thickness normal. Global hypokinesis. Right Ventricle Severe right ventricular dilatation with reduced function. Moderate to severe pulmonary hypertension. Right Atrium Severe right atrial dilatation. Catheter/pacemaker wire in the right atrial cavity. Left Atrium Severely increased left atrial volume. Moderately increased left atrial area. Mitral Valve Mitral valve thickened. No evidence for mitral valve prolapse. No mitral stenosis. Mild mitral regurgitation. Aortic Valve Trileaflet aortic valve. No aortic stenosis. Trace aortic regurgitation. Tricuspid Valve Structurally normal tricuspid valve. No tricuspid stenosis. Moderate tricuspid regurgitation. Pulmonic Valve Pulmonic valve not well visualized. No pulmonic stenosis. Trace pulmonic regurgitation. Pericardium No pericardial effusion. Aorta Normal size aortic root and proximal ascending aorta. CONCLUSIONS Technically difficult study for interpretation. Poorly visualized endocardium. The ejection fraction is difficult to assess. The EF is probably around 35 to 40% Thickened mitral valve leaflets Aortic sclerosis Moderate tricuspid regurgitation Moderate pulmonary hypertension Previewed by: Dr. German Corea MD (Electronically Signed) Final Date: 25 May 2024 13:26
--- NOTE | 2024-05-25 13:38 | P.PN ---
Subjective Progress Note Date: 05/25/24 patient is 79-year-old lady with past medical history significant for hypertension, COPD, CHF presented the ER because of shortness of breath. Patient stated that she was all right this morning when she started Noticing shortness of breath. Shortness of breath was present on rest as on exertion. Patient was complaining of chest tightness. Denied any chest pain. Patient has chronic cough. There is no complaint of fever or chills. Patient was complaining of orthopnea. Denied any swelling of lower extremities. There was no complaint of palpitations. Patient denied any nausea, vomiting or abd ominal pain. Because of worsening shortness of breath, patient presented the ER. Initial lab work done in the ER showed CBC 10, hemoglobin 12.1, platelet count 201, sodium 140, potassium 4.2, BUN 53, creatinine 2.15, glucose 122 troponin 0.036 Influenza A not detected Influenza B not detected RSV not detected COVID-19 not detected EKG done in the ER showed heart rate of 87, paced rhythm Chest x-ray done in the ER showed cardiomegaly with mild central vascular congestion, suggesting CHF exacerbation Patient admitted to internal medicine service 05/25. Patient seen and examined. Blood work done showed WBC 8.6, hemoglobin 9.2, sodium 142, potassium 4.7, BUN 64, creatinine 2.11 glucose 136. Currently on 3 liters of oxygen. States she feels much better, breathing is improved. REVIEW OF SYSTEMS: CONSTITUTIONAL: No fever, no malaise,. CARDIOVASCULAR: No chest pain, no palpitations, no syncope. PULMONARY: No shortness of breath, no cough, GASTROINTESTINAL: No diarrhea, no nausea, no vomiting, no abdominal pain. NEUROLOGICAL: No headaches, no weakness, PHYSICAL EXAMINATION: GENERAL: The patient is alert and oriented x3, not in any acute distress. Ill looking HEENT: Pupils are round and equally reacting to light. EOMI. No scleral icterus. No conjunctival pallor. Normocephalic, atraumatic. No pharyngeal erythema. No thyromegaly. CARDIOVASCULAR: S1 and S2 present. No murmurs, rubs, or gallops. PULMONARY: coarse breath sound bilaterally, no wheeze or crackles audible ABDOMEN: Soft, nontender, nondistended, normoactive bowel sounds. No palpable organomegaly. MUSCULOSKELETAL: No joint swelling or deformity. EXTREMITIES: No cyanosis, clubbing, or pedal edema. NEUROLOGICAL: Gross neurological examination did not reveal any focal deficits. SKIN: No rashes. Assessment and plan Acute on chronic systolic heart failure Acute COPD exacerbation Mild to moderate aortic regurgitation and severe tricuspid regurgitation Severe pulmonary hypertension Atrial fibrillation, paroxysmal Acute on chronic hypoxic respiratory failure Pulmonary Hypertension History of pacemaker implantation Acute on chronic kidney disease Mild hyperkalemia Monitor vital signs Monitor CBC Monitor CMP Continue telemetry monitoring Encourage use of incentive spirometer Strict I's and O's, daily weights Continue pharmacy dose heparin Continue IV Lasix Continue IV Solu-Medrol Continue breathing treatments Pulmonology following Cardiology following Labs and medication were reviewed.. Continue same treatment. Continue with symptomatic treatment. Resume home medication. Monitor labs and vitals. DVT and GI prophylaxis. Further recommendations as per clinical course of the patient Dictation was produced using [employer] dictation software. please excuse any grammatical, word or spelling errors. Objective - Vital Signs Vital signs: Vital Signs Temp 97.9 F 05/25/24 04:00 Pulse 69 05/25/24 09:22 Resp 17 05/25/24 04:00 BP 118/75 05/25/24 04:00 Pulse Ox 95 05/25/24 09:13 FiO2 40 05/25/24 04:37 Intake & Output 05/24/24 05/25/24 05/25/24 18:59 06:59 18:59 Intake Total 120 310 240 Balance 120 310 240 Weight 77 kg Intake: IV 10 Invasive Line 1 10 Oral 120 240 Tube Feeding 300 Other: Voiding Method Toilet # Voids 1 - Labs CBC & Chem 7: 05/25/24 06:35 05/25/24 06:35 Labs: Abnormal Lab Results - Last 24 Hours (Table) 05/25/24 05/25/24 Range/Units 06:35 06:35 Hgb 11.2 L (11.4-16.0) gm/dL MCHC 30.9 L (31.0-37.0) g/dL Neutrophils # 8.0 H (1.3-7.7) k/uL Lymphocytes # 0.4 L (1.0-4.8) k/uL Chloride 97 L (98-107) mmol/L Carbon Dioxide 38 H (22-30) mmol/L BUN 64 H (7-17) mg/dL Creatinine 2.11 H (0.52-1.04) mg/dL Glucose 136 H (74-99) mg/dL
[2024-05-25 15:50] VITALS: BMI 31.0
--- NOTE | 2024-05-26 06:15 | P.PN ---
Subjective Progress Note Date: 05/26/24 The patient is a pleasant 79-year-old female patient who is known to our service from before with a past medical history significant for history of cardiomyopathy with an echo from 2022 showing an EF between 35 to 40% with moderate mitral regurgitation and severe pulmonary hypertension as well as permanent atrial fibrillation and also permanent pacemaker as well as valvular heart disease and COPD and chronic hypoxic respiratory failure and also history of heart failure which she presented to the hospital with a progressive exertional dyspnea associated with bilateral lower extremity edema and also c hest tightness. She has been compliant with the current dose of oral diuretics at as an outpatient but she clearly was not compliant with low-sodium diet. She reports no dizziness or lightheadedness and no feeling of heart racing or fluttering and no presyncope or syncope and no other cardiovascular symptoms but she underwent further investigation including a chest x-ray came in to be abnormal showing evidence of heart failure with vascular congestions and also NT proBNP came in to be severely elevated. She is known to have chronic kidney disease and currently she is in acute on chronic renal failure. CBC is within normal limits. Electrolytes are within normal limits. She was admitted to the hospital after she was diagnosed with heart failure. The examination is remarkable for distant heart sounds with a systolic murmur and severe bilateral expiratory wheezing and no edema was noted in the lower extremities. Please note that the patient troponin also came in to be elevated. The EKG showed underlying atrial fibrillation with ventricular paced rhythm. May 26, 2024 The patient was seen and evaluated this morning. She continues to be short of breath and continues to have bilateral expiratory wheezing. She still hypervolemic. Otherwise she reports no pain in the chest. The echo showed cardiomyopathy with EF between 35 to 40% which is chronic and moderate mitral and moderate tricuspid regurgitation. Her creatinine is elevated. The physical examination is remarkable for irregular rhythm with a systolic murmur at the apical area and bilateral expiratory wheezing and no edema was noted in the lower extremities Assessment Acute on chronic hypoxic respiratory failure likely to be multifactorial secondary to COPD and CHF Heart failure exacerbation secondary to heart failure with reduced ejection fraction HFrEF Atrial fibrillation with controlled heart rate Evidence of myocardial injury History of cardiomyopathy Permanent pacemaker COPD/chronic respiratory failure Valvular heart disease Pulmonary hypertension Multiple comorbid conditions Plan Continue current medical regimen Restart the patient back on oral anticoagulation Consider ruling out severe CAD probably as an outpatient giving the elevation of the creatinine Consider maximize medical treatment for cardiomyopathy as well Continue IV diuretics for additional 24 hours Follow-up with the patient Objective - Vital Signs Vital signs: Vital Signs Temp 98.2 F 05/25/24 23:40 Pulse 69 05/26/24 03:23 Resp 22 05/26/24 03:23 BP 115/65 05/26/24 03:23 Pulse Ox 92 L 05/26/24 03:23 FiO2 40 05/26/24 02:57 Intake & Output 05/25/24 05/25/24 05/26/24 06:59 18:59 05:59 Intake Total 310 674.69 184.995 Output Total 600 1500 Balance 310 74.69 -1315.005 Weight 77 kg 77 kg 70.9 kg Intake: IV 10 10 Invasive Line 1 10 10 Intake, IV Titration 74.69 174.995 Amount Heparin Sod,Pork in 0.45% 74.69 174.995 NaCl 25,000 unit In 0.45 % NaCl 1 250ml.bag @ 12 UNITS/KG/HR 9.24 mls/hr IV .Q24H [facility] Rx#: [id number] Oral 600 Tube Feeding 300 Output: Urine 600 1500 Other: Voiding Method Toilet Toilet Toilet # Voids 1 1 - Labs CBC & Chem 7: 05/25/24 06:35 05/25/24 06:35 Labs: Abnormal Lab Results - Last 24 Hours (Table) 05/25/24 05/25/24 05/25/24 Range/Units 06:35 06:35 11:03 Hgb 11.2 L (11.4-16.0) gm/dL MCHC 30.9 L (31.0-37.0) g/dL Neutrophils # 8.0 H (1.3-7.7) k/uL Lymphocytes # 0.4 L (1.0-4.8) k/uL APTT 41.1 H (22.0-30.0) sec Chloride 97 L (98-107) mmol/L Carbon Dioxide 38 H (22-30) mmol/L BUN 64 H (7-17) mg/dL Creatinine 2.11 H (0.52-1.04) mg/dL Glucose 136 H (74-99) mg/dL 05/25/24 Range/Units 20:23 Hgb (11.4-16.0) gm/dL MCHC (31.0-37.0) g/dL Neutrophils # (1.3-7.7) k/uL Lymphocytes # (1.0-4.8) k/uL APTT 53.6 H (22.0-30.0) sec Chloride (98-107) mmol/L Carbon Dioxide (22-30) mmol/L BUN (7-17) mg/dL Creatinine (0.52-1.04) mg/dL Glucose (74-99) mg/dL
[2024-05-26 07:18] LABS: Basophils % (A) 0 %; Eosinophils % (A) 0 %; HCT 34.7 % (34.0-46.0); HGB 10.8 gm/dL (11.4-16.0); Hypochromasia Slight; Lymphocytes # (A) 0.3 k/uL (1.0-4.8); Lymphocytes % (A) 3 %; MCH 29.3 pg (25.0-35.0); MCHC 31.1 g/dL (31.0-37.0); MCV 94.2 fL (80.0-100.0); Mean Platelet Volume 8.6; Monocytes # (A) 0.3 k/uL (0-1.0); Monocytes % (A) 3 %; Neutrophils % (A) 93 %; Platelet Count 196 k/uL (150-450); RBC 3.68 m/uL (3.80-5.40); RDW 15.5 % (11.5-15.5); WBC 9.7 k/uL (3.8-10.6)
[2024-05-26 07:36] LABS: Partial Thromboplastin Time 64.8 sec (22.0-30.0)
[2024-05-26] MEDS: APIXABAN 5 MG TAB PO SCH (08:47)
--- NOTE | 2024-05-26 11:58 | P.PN ---
Subjective Progress Note Date: 05/26/24 Principal diagnosis: CHF. This is a 79-year-old female patient with a known history of breast cancer status post radiation with lung damage greater than 25 years ago, chronic obst ructive pulmonary disease, chronic hypoxemic respiratory failure on home oxygen at 2 to 3 L, obstructive sleep apnea on home BiPAP, atrial fibrillation anticoagulated with Eliquis, gout, depression, former smoker. He presented here to the emergency room earlier this morning with increasing shortness of breath cough and congestion. Several family members in the home have been sick with upper respiratory infections. X-ray shows cardiomegaly with mild central vascular congestion and fluid volume overload. There is a focal right basilar infiltrate/atelectasis. White count 10.0. Hemoglobin 12.1. Platelets 201. INR 1.1. D-dimer 0.44. Sodium 140. Potassium 4.0. Bicarb 36. BUN 53. Crea tinine 2.15. Glucose 122. Troponin 0.036, 0.030, 0.024. proBNP 10,600. Procalcitonin negative at 0.6. Viral screen negative. She is seen in consultation in the emergency department. She is currently sitting up on the stretcher. Awake and alert in no acute distress. She had initially been on BiPAP 16/5 and 40% FiO2. She is currently on oxygen at 5 L/min per nasal cannula. Feeling a bit better since she came in. No fever or chills. No hemoptysis. He has been initiated on DuoNeb inhalations, Symbicort, Singulair, Solu-Medrol. Anticoagulated with Eliquis. Initiated on Lasix 40 mg IV every 12 hours. Progress note dated May 25, 2024. 79-year-old female seen yesterday in consultation. The patient was admitted with shortness of breath, was thought to have CHF. Currently, she is on 3 L of oxygen. She did use BiPAP, with settings of 16/5, and 40%. She is sitting up in a chair next to her hospital bed. She states that her breathing is improved. Current labs include a white count 8.6, hemoglobin 9.2, macro 36.2, and a platelet count of 214,000. Sodium 142, potassium 4.7, chlorides 97, CO2 38, BUN 64, creatinine 2.11. Glucose is 136. Progress note dated May 26, 2024. 79-year-old female seen in room 356. The patient continues on nasal O2 at 3 L. No IV fluids. The patient did use BiPAP last night, with settings of 16/5, and 40%. When asked, the patient states that she is feeling much better. She states that her breathing is much improved, she denies any shortness of breath, cough, wheezing, chest tightness, or phlegm production. She also denies any chest pain or pressure. Labs are reviewed. White count 9.7, hemoglobin 10.8, macro 34.7, platelet count normal. PTT is 64.8. Objective - Vital Signs Vital signs: Vital Signs Temp 98.3 F 05/26/24 08:15 Pulse 76 05/26/24 08:34 Resp 19 05/26/24 08:15 BP 99/58 05/26/24 08:15 Pulse Ox 95 05/26/24 08:15 FiO2 40 05/26/24 02:57 Intake & Output 05/25/24 05/26/24 05/26/24 19:59 06:59 18:59 Intake Total 240 Output Total Balance 240 Weight Intake: IV Invasive Line 1 Intake, IV Titration Amount Heparin Sod,Pork in 0.45% NaCl 25,000 unit In 0.45 % NaCl 1 250ml.bag @ 12 UNITS/KG/HR 9.24 mls/hr IV .Q24H [facility] Rx#: [id number] Oral 240 Output: Urine Other: Voiding Method Toilet # Voids - Exam No acute distress, oriented 3. The patient is currently on 3 L nasal cannula. HEENT examination is grossly unremarkable. Mucous membranes are moist. No oral lesions. Neck supple. Full range of motion. No adenopathy thyromegaly or neck vein distention. Cardiovascular examination reveals regular rhythm rate. S1-S2 normal. No S3 or S4. No discernible murmur noted. Lungs reveal scattered bilateral rhonchi, and basilar crackles. No wheezes. Abdomen soft bowel sounds are heard. No masses or tenderness. Extremities are intact. No cyanosis or clubbing. Trace edema present. Skin is without rash or lesion. Neurologic examination is brief but nonfocal. - Labs CBC & Chem 7: 05/26/24 06:23 05/25/24 06:35 Labs: Abnormal Lab Results - Last 24 Hours (Table) 05/25/24 05/26/24 05/26/24 Range/Units 20:23 06:23 06:23 RBC 3.68 L (3.80-5.40) m/uL Hgb 10.8 L (11.4-16.0) gm/dL Neutrophils # 9.0 H (1.3-7.7) k/uL Lymphocytes # 0.3 L (1.0-4.8) k/uL APTT 53.6 H 64.8 H (22.0-30.0) sec Assessment and Plan Assessment: Acute exacerbation of chronic systolic congestive heart failure. Mild to moderate aortic regurgitation and severe tricuspid regurgitation. Severe pulmonary hypertension. Acute exacerbation of chronic obstructive pulmonary disease. Acute on chronic hypoxemic respiratory failure secondary to above. Chronic obstructive pulmonary disease, oxygen dependent. Former smoker. Chronic atrial fibrillation. Permanent pacemaker implantation. History of gout. History of right sided breast cancer status post radiation with "lung damage" greater than 25 years ago. Plan: Plan dated May 25, 2024. The patient is seen today in room 356. She is resting comfortably. She is sitting in the chair next to her hospital bed. She is on 3 L of oxygen by nasal cannula. She denies any significant shortness of breath. She is feeling better. She did use BiPAP last night with settings of 16/5, and 40%. Labs, x- rays, and all medications are reviewed. We will continue to follow and make recommendations along the way. Prognosis is guarded. Plan dated May 26, 2024. The patient appears to be doing much better. She states that she is feeling better, and breathing better. Currently, she continues on O2 at 3 L. She does use a BiPAP at nighttime, with settings of 16/5, and 40%. Labs, x-rays, and all medications are reviewed. Prognosis is guarded. We will continue to follow the patient, make recommendations where appropriate. Time with Patient: Less than 30
--- NOTE | 2024-05-26 12:44 | P.PN ---
Subjective Progress Note Date: 05/26/24 patient is 79-year-old lady with past medical history significant for hypertension, COPD, CHF presented the ER because of shortness of breath. Patient stated that she was all right this morning when she started Noticing shortness of breath. Shortness of breath was present on rest as on exertion. Patient was complaining of chest tightness. Denied any chest pain. Patient has chronic cough. There is no complaint of fever or chills. Patient was complaining of orthopnea. Denied any swelling of lower extremities. There was no complaint of palpitations. Patient denied any nausea, vomiting or abd ominal pain. Because of worsening shortness of breath, patient presented the ER. Initial lab work done in the ER showed CBC 10, hemoglobin 12.1, platelet count 201, sodium 140, potassium 4.2, BUN 53, creatinine 2.15, glucose 122 troponin 0.036 Influenza A not detected Influenza B not detected RSV not detected COVID-19 not detected EKG done in the ER showed heart rate of 87, paced rhythm Chest x-ray done in the ER showed cardiomegaly with mild central vascular congestion, suggesting CHF exacerbation Patient admitted to internal medicine service 05/25. Patient seen and examined. Blood work done showed WBC 8.6, hemoglobin 9.2, sodium 142, potassium 4.7, BUN 64, creatinine 2.11 glucose 136. Currently on 3 liters of oxygen. States she feels much better, breathing is improved. 05/26. Patient seen and examined. Heparin discontinued, patient switched back to Eliquis. States breathing has improved. REVIEW OF SYSTEMS: CONSTITUTIONAL: No fever, no malaise,. CARDIOVASCULAR: No chest pain, no palpitations, no syncope. PULMONARY: No shortness of breath, no cough, GASTROINTESTINAL: No diarrhea, no nausea, no vomiting, no abdominal pain. NEUROLOGICAL: No headaches, no weakness, PHYSICAL EXAMINATION: GENERAL: The patient is alert and oriented x3, not in any acute distress. Ill looking HEENT: Pupils are round and equally reacting to light. EOMI. No scleral icterus. No conjunctival pallor. Normocephalic, atraumatic. No pharyngeal erythema. No thyromegaly. CARDIOVASCULAR: S1 and S2 present. No murmurs, rubs, or gallops. PULMONARY: coarse breath sound bilaterally, no wheeze or crackles audible ABDOMEN: Soft, nontender, nondistended, normoactive bowel sounds. No palpable organomegaly. MUSCULOSKELETAL: No joint swelling or deformity. EXTREMITIES: No cyanosis, clubbing, or pedal edema. NEUROLOGICAL: Gross neurological examination did not reveal any focal deficits. SKIN: No rashes. Assessment and plan Acute on chronic systolic heart failure Acute COPD exacerbation Mild to moderate aortic regurgitation and severe tricuspid regurgitation Severe pulmonary hypertension Atrial fibrillation, paroxysmal Acute on chronic hypoxic respiratory failure Pulmonary Hypertension History of pacemaker implantation Acute on chronic kidney disease Mild hyperkalemia Monitor vital signs Monitor CBC Monitor CMP Continue telemetry monitoring Encourage use of incentive spirometer Strict I's and O's, daily weights Continue Eliquis Continue IV Lasix Continue IV Solu-Medrol Continue breathing treatments Pulmonology following Cardiology following Labs and medication were reviewed.. Continue same treatment. Continue with symptomatic treatment. Resume home medication. Monitor labs and vitals. DVT and GI prophylaxis. Further recommendations as per clinical course of the patient Dictation was produced using [employer] dictation software. please excuse any grammatical, word or spelling errors. Objective - Vital Signs Vital signs: Vital Signs Temp 98.2 F 05/25/24 23:40 Pulse 69 05/26/24 03:23 Resp 22 05/26/24 03:23 BP 115/65 05/26/24 03:23 Pulse Ox 92 L 05/26/24 03:23 FiO2 40 05/26/24 02:57 Intake & Output 05/25/24 05/26/24 05/26/24 19:59 06:59 18:59 Intake Total Output Total Balance Weight Intake: IV Invasive Line 1 Intake, IV Titration Amount Heparin Sod,Pork in 0.45% NaCl 25,000 unit In 0.45 % NaCl 1 250ml.bag @ 12 UNITS/KG/HR 9.24 mls/hr IV .Q24H OANH Rx#: [id number] Oral Output: Urine Other: Voiding Method # Voids - Labs CBC & Chem 7: 05/26/24 06:23 05/25/24 06:35 Labs: Abnormal Lab Results - Last 24 Hours (Table) 05/25/24 05/25/24 05/26/24 Range/Units 11:03 20:23 06:23 RBC (3.80-5.40) m/uL Hgb (11.4-16.0) gm/dL Neutrophils # (1.3-7.7) k/uL Lymphocytes # (1.0-4.8) k/uL APTT 41.1 H 53.6 H 64.8 H (22.0-30.0) sec 05/26/24 Range/Units 06:23 RBC 3.68 L (3.80-5.40) m/uL Hgb 10.8 L (11.4-16.0) gm/dL Neutrophils # 9.0 H (1.3-7.7) k/uL Lymphocytes # 0.3 L (1.0-4.8) k/uL APTT (22.0-30.0) sec
[2024-05-27 09:20] LABS: Basophils % (A) 0 %; Eosinophils % (A) 0 %; HCT 38.4 % (34.0-46.0); HGB 11.6 gm/dL (11.4-16.0); Hypochromasia Marked; Lymphocytes # (A) 0.5 k/uL (1.0-4.8); Lymphocytes % (A) 5 %; MCH 29.4 pg (25.0-35.0); MCHC 30.2 g/dL (31.0-37.0); MCV 97.2 fL (80.0-100.0); Mean Platelet Volume 8.2; Monocytes # (A) 0.3 k/uL (0-1.0); Monocytes % (A) 3 %; Neutrophils # (A) 9.9 k/uL (1.3-7.7); Neutrophils % (A) 92 %; Platelet Count 217 k/uL (150-450); RBC 3.95 m/uL (3.80-5.40); RDW 14.9 % (11.5-15.5); WBC 10.8 k/uL (3.8-10.6)
[2024-05-27 09:42] LABS: ALT 19 U/L (4-34); AST 22 U/L (14-36); African American GFR (CKD) 27 (>60 ml/min/1.73 sqM); Albumin 4.1 g/dL (3.5-5.0); Alkaline Phosphatase 84 U/L (38-126); Anion Gap 8 mmol/L; Blood Urea Nitrogen 78 mg/dL (7-17); Calcium 9.1 mg/dL (8.4-10.2); Carbon Dioxide 33 mmol/L (22-30); Chloride 97 mmol/L (98-107); Glucose 202 mg/dL (74-99); Non-African American GFR(CKD) 23 (>60 ml/min/1.73 sqM); Potassium 4.9 mmol/L (3.5-5.1); Sodium 138 mmol/L (137-145); Total Bilirubin 0.8 mg/dL (0.2-1.3); Total Protein 6.8 g/dL (6.3-8.2)
--- NOTE | 2024-05-27 14:41 | P.PN ---
Subjective Progress Note Date: 05/27/24 This is a 79-year-old female patient with a known history of breast cancer status post radiation with lung damage greater than 25 years ago, chronic obstructive pulmonary disease, chronic hypoxemic respiratory failure on home oxygen at 2 to 3 L, obstructive sleep apnea on home BiPAP, atrial fibrillation anticoagulated with Eliquis, gout, depression, former smoker. He presented here to the emergency room earlier this morning with increasing shortness of breath cough and congestion. Several family members in the home have been sick with upper respiratory infections. X-ray shows cardiomegaly with mild central vascular congestion and fluid volume overload. There is a focal right basilar infiltrate/atelectasis. White count 10.0. Hemoglobin 12.1. Platelets 201. INR 1.1. D-dimer 0.44. Sodium 140. Potassium 4.0. Bicarb 36. BUN 53. Creatinine 2.15. Glucose 122. Troponin 0.036, 0.030, 0.024. proBNP 10,600. Procalcitonin negative at 0.6. Viral screen negative. She is seen in [facility] in the emergency department. She is currently sitting up on the stretcher. Awake and alert in no acute distress. She had initially been on BiPAP 16/5 and 40% FiO2. She is currently on oxygen at 5 L/min per nasal cannula. Feeling a bit better since she came in. No fever or chills. No he moptysis. He has been initiated on DuoNeb inhalations, Symbicort, Singulair, Solu-Medrol. Anticoagulated with Eliquis. Initiated on Lasix 40 mg IV every 12 hours. Progress note dated May 25, 2024. 79-year-old female seen yesterday in consultation. The patient was admitted with shortness of breath, was thought to have CHF. Currently, she is on 3 L of oxygen. She did use BiPAP, with settings of 16/5, and 40%. She is sitting up in a chair next to her hospital bed. She states that her breathing is improved. Current labs include a white count 8.6, hemoglobin 9.2, macro 36.2, and a pl atelet count of 214,000. Sodium 142, potassium 4.7, chlorides 97, CO2 38, BUN 64, creatinine 2.11. Glucose is 136. Progress note dated May 26, 2024. 79-year-old female seen in room 356. The patient continues on nasal O2 at 3 L. No IV fluids. The patient did use BiPAP last night, with settings of 16/5, and 40%. When asked, the patient states that she is feeling much better. She states that her breathing is much improved, she denies any shortness of breath, cough, wheezing, chest tightness, or phlegm production. She also denies any chest pain or pressure. Labs are reviewed. White count 9.7, hemoglobin 10.8, macro 34.7, platelet count normal. PTT is 64.8. 05/27/2024, the patient is being seen for a follow-up. The patient is resting comfortably in bed. The patient is known to have chronic lung disease, COPD, chronic hypoxic mindy failure maintained on oxygen 2 L/min nasal cannula, obstructive sleep apnea, chronic A-fib maintained on anticoagulation with Eliquis in addition to previous history of breast cancer, depression, gout and previous history of smoking, and chronic stage III kidney disease. Patient is currently being treated for an acute hypoxic respiratory failure on top of her chronic respiratory failure. She continues to show signs of bronchospasm wheezi ng. She is on DuoNeb nebulized treatments [id number]. She remains on IV Solu-Medrol 40 mg every 8 hours. She remains on Demadex 20 g p.o. daily. The white cell count of 10.8 with hemoglobin of 1.6 and a platelet count of 217. BUN is 78 with a creatinine of 2.0. Sodium is at 138 with a potassium level of 4.9, chlorides 97. Objective - Vital Signs Vital signs: Vital Signs Temp 98.2 F 05/27/24 08:15 Pulse 75 05/27/24 08:15 Resp 18 05/27/24 08:15 BP 135/63 05/27/24 08:15 Pulse Ox 93 L 05/27/24 08:15 FiO2 40 05/27/24 04:00 Intake & Output 05/26/24 05/27/24 05/27/24 18:59 06:59 18:59 Intake Total 420 420 Output Total 400 500 Balance 20 -80 Weight 67.8 kg Intake: Oral 420 420 Output: Urine 400 500 Other: Voiding Method Toilet Toilet Toilet # Voids 1 - Exam No acute distress, oriented 3. The patient is currently on 3 L nasal cannula. HEENT examination is grossly unremarkable. Mucous membranes are moist. No oral lesions. Neck supple. Full range of motion. No adenopathy thyromegaly or neck vein distention. Cardiovascular examination reveals regular rhythm rate. S1-S2 normal. No S3 or S4. No discernible murmur noted. Lungs reveal scattered bilateral rhonchi, and basilar crackles. No wheezes. Abdomen soft bowel sounds are heard. No masses or tenderness. Extremities are intact. No cyanosis or clubbing. Trace edema present. Skin is without rash or lesion. Neurologic examination is brief but nonfocal. - Labs CBC & Chem 7: 05/27/24 08:28 05/27/24 08:28 Labs: Abnormal Lab Results - Last 24 Hours (Table) 05/27/24 05/27/24 Range/Units 08:28 08:28 WBC 10.8 H (3.8-10.6) k/uL MCHC 30.2 L (31.0-37.0) g/dL Neutrophils # 9.9 H (1.3-7.7) k/uL Lymphocytes # 0.5 L (1.0-4.8) k/uL Chloride 97 L (98-107) mmol/L Carbon Dioxide 33 H (22-30) mmol/L BUN 78 H (7-17) mg/dL Creatinine 2.00 H (0.52-1.04) mg/dL Glucose 202 H (74-99) mg/dL Assessment and Plan Plan: Acute exacerbation of chronic systolic congestive heart failure. Echocardiogram was done on 05/25/2024 and the patient was found to have impaired the physical function with an ejection fraction of 35 to 40%, moderate tricuspid regurgitation, moderate degree of pulm hypertension. Acute exacerbation of chronic obstructive pulmonary disease. Acute on chronic hypoxemic respiratory failure secondary to above. The patient is currently on oxygen at 3 L/min nasal cannula. Utilizing BiPAP overnight at a pressure of 16 over 5 cm of water. Chronic obstructive pulmonary disease, oxygen dependent. Chronic stage III kidney disease with a component of acute on top of chronic kidney failure Former smoker. Chronic atrial fibrillation. The patient is maintained on long-term anticoagulants. Permanent pacemaker implantation. History of gout. History of right sided breast cancer status post radiation with "lung damage" greater than 25 years ago. Plan: Keep O2 at 3 L minute nasal cannula BiPAP overnight at the same settings Continue Demadex 20 mg p.o. daily Continue anticoagulation with Eliquis Continue DuoNeb nebulized treatments [id number] and IV Solu-Medrol Clinically more stable I will continue to follow. Echo results were noted. Monitor renal function Will follow
--- NOTE | 2024-05-27 15:00 | P.PN ---
Subjective Progress Note Date: 05/27/24 The patient is a pleasant 79-year-old female patient who is known to our service from before with a past medical history significant for history of cardiomyopathy with an echo from 2022 showing an EF between 35 to 40% with moderate mitral regurgitation and severe pulmonary hypertension as well as permanent atrial fibrillation and also permanent pacemaker as well as valvular heart disease and COPD and chronic hypoxic respiratory failure and also history of heart failure which she presented to the hospital with a progressive exertional dyspnea associated with bilateral lower extremity edema and also chest tightness. She has been compliant with the current dose of oral diuretics at as an outpatient but she clearly was not compliant with low-sodium diet. She reports no dizziness or lightheadedness and no feeling of heart racing or fluttering and no presyncope or syncope and no other cardiovascular symptoms but she underwent further investigation including a chest x-ray came in to be abnormal showing evidence of heart failure with vascular congestions and also NT proBNP came in to be severely elevated. She is known to have chronic kidney disease and currently she is in acute on chronic renal failure. CBC is within normal limits. Electrolytes are within normal limits. She was admitted to the hospital after she was diagnosed with heart failure. The examination is remarkable for distant heart sounds with a systolic murmur and severe bilateral expiratory wheezing and no edema was noted in the lower extremities. Please note that the patient troponin also came in to be elevated. The EKG showed underlying atrial fibrillation with ventricular paced rhythm. May 26, 2024 The patient was seen and evaluated this morning. She continues to be short of breath and continues to have bilateral expiratory wheezing. She still hypervolemic. Otherwise she reports no pain in the chest. The echo showed cardiomyopathy with EF between 35 to 40% which is chronic and moderate mitral an d moderate tricuspid regurgitation. Her creatinine is elevated. The physical examination is remarkable for irregular rhythm with a systolic murmur at the apical area and bilateral expiratory wheezing and no edema was noted in the lower extremities 05/27 The patient is seen and examined. Blood pressure 135/63, heart rate 75, pulse ox 93% on 4 L nasal cannula. Repeat blood work reveals WBC 10.8, hemoglobin 9.6. BUN 78 creatinine 2, potassium 4.9. Patient appears to be comfortable and in no acute distress. The physical examination is remarkable for irregular rhythm with a systolic murmur at the apical area and bilateral expiratory wheezing and no edema was noted in the lower extremities Assessment Acute on chronic hypoxic respiratory failure likely to be multifactorial secondary to COPD and CHF Heart failure exacerbation secondary to heart failure with reduced ejection fraction HFrEF Permanent atrial fibrillation with controlled heart rate Evidence of myocardial injury History of cardiomyopathy Permanent pacemaker COPD exacerbation Chronic hypoxic respiratory failure on home O2 at 2 L nasal cannula Valvular heart disease Pulmonary hypertension Obstructive sleep apnea Multiple comorbid conditions Plan Continue current medical regimen: Reduce Eliquis to 2.5 mg twice daily Increase Farxiga to 10 mg daily Discontinue IV Lasix and start patient on home dose of torsemide 20 mg twice daily At time of discharge, patient will follow-up with Dr. Benitez for evaluation of upgrading pacemaker to biventricular device with concern for pacemaker cardiomyopathy. Follow-up with the patient Nurse practitioner note has been reviewed, I agree with documented findings and plan of care. Patient was seen and examined. Objective - Vital Signs Vital signs: Vital Signs Temp 97.6 F 05/27/24 04:00 Pulse 80 05/27/24 07:56 Resp 20 05/27/24 04:00 BP 107/55 05/27/24 04:00 Pulse Ox 99 05/27/24 04:00 FiO2 40 05/27/24 04:00 Intake & Output 05/26/24 05/27/24 05/27/24 18:59 06:59 18:59 Intake Total 420 420 Output Total 400 500 Balance 20 -80 Weight 67.8 kg Intake: Oral 420 420 Output: Urine 400 500 Other: Voiding Method Toilet Toilet # Voids 1 - Labs CBC & Chem 7: 05/27/24 08:28 05/27/24 08:28
[2024-05-27] MEDS: APIXABAN 2.5 MG TABLET PO SCH (20:30)
[2024-05-27] MEDS: TORSEMIDE 20 MG TAB PO SCH (20:31)
--- NOTE | 2024-05-27 20:58 | P.PN ---
Subjective Progress Note Date: 05/27/24 patient is 79-year-old lady with past medical history significant for hypertension, COPD, CHF presented the ER because of shortness of breath. Patient stated that she was all right this morning when she started Noticing shortness of breath. Shortness of breath was present on rest as on exertion. Patient was complaining of chest tightness. Denied any chest pain. Patient has chronic cough. There is no complaint of fever or chills. Patient was complaining of orthopnea. Denied any swelling of lower extremities. There was no complaint of palpitations. Patient denied any nausea, vomiting or abdo adam pain. Because of worsening shortness of breath, patient presented the ER. Initial lab work done in the ER showed CBC 10, hemoglobin 12.1, platelet count 201, sodium 140, potassium 4.2, BUN 53, creatinine 2.15, glucose 122 troponin 0.036 Influenza A not detected Influenza B not detected RSV not detected COVID-19 not detected EKG done in the ER showed heart rate of 87, paced rhythm Chest x-ray done in the ER showed cardiomegaly with mild central vascular congestion, suggesting CHF exacerbation Patient admitted to internal medicine service 05/25. Patient seen and examined. Blood work done showed WBC 8.6, hemoglobin 9.2, sodium 142, potassium 4.7, BUN 64, creatinine 2.11 glucose 136. Currently on 3 liters of oxygen. States she feels much better, breathing is improved. 05/26. Patient seen and examined. Heparin discontinued, patient switched back to Eliquis. States breathing has improved. 05/27/2024 Patient evaluated today in follow-up in the medical floor. Continues on IV Las ix and has significant scattered wheezing noted. EF is 35 to 40%. BUN of 78 creatinine of 2.00. REVIEW OF SYSTEMS: CONSTITUTIONAL: No fever, no malaise,. CARDIOVASCULAR: No chest pain, no palpitations, no syncope. PULMONARY: No shortness of breath, no cough, GASTROINTESTINAL: No diarrhea, no nausea, no vomiting, no abdominal pain. NEUROLOGICAL: No headaches, no weakness, PHYSICAL EXAMINATION: GENERAL: The patient is alert and oriented x3, not in any acute distress. Ill looking HEENT: Pupils are round and equally reacting to light. EOMI. No scleral icterus. No conjunctival pallor. Normocephalic, atraumatic. No pharyngeal erythema. No thyromegaly. CARDIOVASCULAR: S1 and S2 present. No murmurs, rubs, or gallops. PULMONARY: coarse breath sound bilaterally, no wheeze or crackles audible ABDOMEN: Soft, nontender, nondistended, normoactive bowel sounds. No palpable organomegaly. MUSCULOSKELETAL: No joint swelling or deformity. EXTREMITIES: No cyanosis, clubbing, or pedal edema. NEUROLOGICAL: Gross neurological examination did not reveal any focal deficits. SKIN: No rashes. Assessment and plan Acute on chronic systolic heart failure Acute COPD exacerbation Mild to moderate aortic regurgitation and severe tricuspid regurgitation Severe pulmonary hypertension Atrial fibrillation, paroxysmal Acute on chronic hypoxic respiratory failure Pulmonary Hypertension History of pacemaker implantation Acute on chronic kidney disease Mild hyperkalemia Monitor vital signs Monitor CBC Monitor CMP Continue telemetry monitoring Encourage use of incentive spirometer Strict I's and O's, daily weights Continue Eliquis Continue IV Lasix Continue IV Solu-Medrol Continue breathing treatments Pulmonology following Cardiology following Labs and medication were reviewed.. Continue same treatment. Continue with symptomatic treatment. Resume home medication. Monitor labs and vitals. DVT and GI prophylaxis. Further recommendations as per clinical course of the patient Dictation was produced using [employer] dictation software. please excuse any grammatical, word or spelling errors. The impression and plan of care has been dictated by Anne Marie Bell, Nurse Practitioner as directed. Dr. Sekou MD I have performed a history and physical examination and medical decision making of this patient, discussed the same with the dictator, and agree with the dictators assessment and plan as written, documented as a scribe. Based on total visit time, I have performed more than 50% of this visit. Objective - Vital Signs Vital signs: Vital Signs Temp 98.2 F 05/27/24 08:15 Pulse 69 05/27/24 12:00 Resp 18 05/27/24 12:00 BP 136/64 05/27/24 12:00 Pulse Ox 93 L 05/27/24 12:00 FiO2 40 05/27/24 04:00 Intake & Output 05/26/24 05/27/24 05/27/24 18:59 06:59 18:59 Intake Total 420 420 Output Total 400 500 Balance 20 -80 Weight 67.8 kg Intake: Oral 420 420 Output: Urine 400 500 Other: Voiding Method Toilet Toilet Toilet # Voids 1 - Labs CBC & Chem 7: 05/27/24 08:28 11 08:28 Labs: Abnormal Lab Results - Last 24 Hours (Table) 05/27/24 05/27/24 Range/Units 08:28 08:28 WBC 10.8 H (3.8-10.6) k/uL MCHC 30.2 L (31.0-37.0) g/dL Neutrophils # 9.9 H (1.3-7.7) k/uL Lymphocytes # 0.5 L (1.0-4.8) k/uL Chloride 97 L (98-107) mmol/L Carbon Dioxide 33 H (22-30) mmol/L BUN 78 H (7-17) mg/dL Creatinine 2.00 H (0.52-1.04) mg/dL Glucose 202 H (74-99) mg/dL Assessment and Plan Time with Patient: Less than 30
[2024-05-28 07:50] LABS: African American GFR (CKD) 31 (>60 ml/min/1.73 sqM); Anion Gap 2 mmol/L; Blood Urea Nitrogen 72 mg/dL (7-17); Carbon Dioxide 38 mmol/L (22-30); Chloride 100 mmol/L (98-107); Glucose 120 mg/dL (74-99); Non-African American GFR(CKD) 27 (>60 ml/min/1.73 sqM); Potassium 4.9 mmol/L (3.5-5.1); Sodium 140 mmol/L (137-145)
[2024-05-28] MEDS: DAPAGLIFLOZIN PROPANEDIOL 10 MG TABLET PO SCH (08:15)
--- NOTE | 2024-05-28 12:40 | P.PN ---
Subjective Progress Note Date: 05/28/24 patient is 79-year-old lady with past medical history significant for hypertension, COPD, CHF presented the ER because of shortness of breath. Patient stated that she was all right this morning when she started Noticing shortness of breath. Shortness of breath was present on rest as on exertion. Patient was complaining of chest tightness. Denied any chest pain. Patient has chronic cough. There is no complaint of fever or chills. Patient was complaining of orthopnea. Denied any swelling of lower extremities. There was no complaint of palpitations. Patient denied any nausea, vomiting or abdo adam pain. Because of worsening shortness of breath, patient presented the ER. Initial lab work done in the ER showed CBC 10, hemoglobin 12.1, platelet count 201, sodium 140, potassium 4.2, BUN 53, creatinine 2.15, glucose 122 troponin 0.036 Influenza A not detected Influenza B not detected RSV not detected COVID-19 not detected EKG done in the ER showed heart rate of 87, paced rhythm Chest x-ray done in the ER showed cardiomegaly with mild central vascular congestion, suggesting CHF exacerbation Patient admitted to internal medicine service 05/25. Patient seen and examined. Blood work done showed WBC 8.6, hemoglobin 9.2, sodium 142, potassium 4.7, BUN 64, creatinine 2.11 glucose 136. Currently on 3 liters of oxygen. States she feels much better, breathing is improved. 05/26. Patient seen and examined. Heparin discontinued, patient switched back to Eliquis. States breathing has improved. 05/27/2024 Patient evaluated today in follow-up in the medical floor. Continues on IV Las ix and has significant scattered wheezing noted. EF is 35 to 40%. BUN of 78 creatinine of 2.00. 05/28/2024 Patient is evaluated today in follow-up sitting up at the edge of the bed. She continues to report improvement in her shortness of breath. She does have some scattered wheezing noted again today. Patient has been transition to oral torsemide. Continues on IV Solu-Medrol. Patient is not quite ready for discharge. REVIEW OF SYSTEMS: CONSTITUTIONAL: No fever, no malaise,. CARDIOVASCULAR: No chest pain, no palpitations, no syncope. PULMONARY: No shortness of breath, no cough, GASTROINTESTINAL: No diarrhea, no nausea, no vomiting, no abdominal pain. NEUROLOGICAL: No headaches, no weakness, PHYSICAL EXAMINATION: GENERAL: The patient is alert and oriented x3, not in any acute distress. Ill looking HEENT: Pupils are round and equally reacting to light. EOMI. No scleral icterus. No conjunctival pallor. Normocephalic, atraumatic. No pharyngeal erythema. No thyromegaly. CARDIOVASCULAR: S1 and S2 present. No murmurs, rubs, or gallops. PULMONARY: coarse breath sound bilaterally, no wheeze or crackles audible ABDOMEN: Soft, nontender, nondistended, normoactive bowel sounds. No palpable organomegaly. MUSCULOSKELETAL: No joint swelling or deformity. EXTREMITIES: No cyanosis, clubbing, or pedal edema. NEUROLOGICAL: Gross neurological examination did not reveal any focal deficits. SKIN: No rashes. Assessment and plan Acute on chronic systolic heart failure Acute COPD exacerbation Mild to moderate aortic regurgitation and severe tricuspid regurgitation Severe pulmonary hypertension Atrial fibrillation, paroxysmal Acute on chronic hypoxic respiratory failure Pulmonary Hypertension History of pacemaker implantation Acute on chronic kidney disease Mild hyperkalemia GI prophylaxis DVT prophylaxis on eliquis Plan Encourage use of incentive spirometer Strict I's and O's, daily weights Continue Eliquis Transitioned back to oral torsemide Continue IV Solu-Medrol Continue breathing treatments Pulmonology following Cardiology following Possible D/C in the next 24 hours Labs and medication were reviewed.. Continue same treatment. Continue with symptomatic treatment. Resume home medication. Monitor labs and vitals. DVT and GI prophylaxis. Further recommendations as per clinical course of the patient Dictation was produced using [employer] dictation software. please excuse any grammatical, word or spelling errors. The impression and plan of care has been dictated by Anne Marie Bell, Nurse Practitioner as directed. Dr. Sekou MD I have performed a history and physical examination and medical decision making of this patient, discussed the same with the dictator, and agree with the dictators assessment and plan as written, documented as a scribe. Based on total visit time, I have performed more than 50% of this visit. Objective - Vital Signs Vital signs: Vital Signs Temp 97.8 F 05/28/24 10:46 Pulse 74 05/28/24 11:54 Resp 20 05/28/24 10:46 BP 128/87 05/28/24 10:46 Pulse Ox 96 05/28/24 10:46 FiO2 40 05/28/24 03:50 Intake & Output 05/27/24 05/28/24 05/28/24 18:59 06:59 18:59 Intake Total 10 240 Output Total 900 Balance -890 240 Weight 71.3 kg Intake: IV 10 0.9 10 Oral 240 Output: Urine 900 Other: Voiding Method Toilet Toilet Toilet # Voids 1 - Labs CBC & Chem 7: 05/27/24 08:28 05/28/24 06:30 Labs: Abnormal Lab Results - Last 24 Hours (Table) 05/28/24 Range/Units 06:30 Carbon Dioxide 38 H (22-30) mmol/L BUN 72 H (7-17) mg/dL Creatinine 1.76 H (0.52-1.04) mg/dL Glucose 120 H (74-99) mg/dL Assessment and Plan Time with Patient: Less than 30
--- NOTE | 2024-05-28 12:57 | P.PN ---
Subjective Progress Note Date: 05/28/24 This is a 79-year-old female patient with a known history of breast cancer status post radiation with lung damage greater than 25 years ago, chronic obstructive pulmonary disease, chronic hypoxemic respiratory failure on home oxygen at 2 to 3 L, obstructive sleep apnea on home BiPAP, atrial fibrillation anticoagulated with Eliquis, gout, depression, former smoker. He presented here to the emergency room earlier this morning with increasing shortness of breath cough and congestion. Several family members in the home have been sick with upper respiratory infections. X-ray shows cardiomegaly with mild central vascular congestion and fluid volume overload. There is a focal right basilar infiltrate/atelectasis. White count 10.0. Hemoglobin 12.1. Platelets 201. INR 1.1. D-dimer 0.44. Sodium 140. Potassium 4.0. Bicarb 36. BUN 53. Creatinine 2.15. Glucose 122. Troponin 0.036, 0.030, 0.024. proBNP 10,600. Procalcitonin negative at 0.6. Viral screen negative. She is seen in [facility] in the emergency department. She is currently sitting up on the stretcher. Awake and alert in no acute distress. She had initially been on BiPAP 16/5 and 40% FiO2. She is currently on oxygen at 5 L/min per nasal cannula. Feeling a bit better since she came in. No fever or chills. No he moptysis. He has been initiated on DuoNeb inhalations, Symbicort, Singulair, Solu-Medrol. Anticoagulated with Eliquis. Initiated on Lasix 40 mg IV every 12 hours. Progress note dated May 25, 2024. 79-year-old female seen yesterday in consultation. The patient was admitted with shortness of breath, was thought to have CHF. Currently, she is on 3 L of oxygen. She did use BiPAP, with settings of 16/5, and 40%. She is sitting up in a chair next to her hospital bed. She states that her breathing is improved. Current labs include a white count 8.6, hemoglobin 9.2, macro 36.2, and a pl atelet count of 214,000. Sodium 142, potassium 4.7, chlorides 97, CO2 38, BUN 64, creatinine 2.11. Glucose is 136. Progress note dated May 26, 2024. 79-year-old female seen in room 356. The patient continues on nasal O2 at 3 L. No IV fluids. The patient did use BiPAP last night, with settings of 16/5, and 40%. When asked, the patient states that she is feeling much better. She states that her breathing is much improved, she denies any shortness of breath, cough, wheezing, chest tightness, or phlegm production. She also denies any chest pain or pressure. Labs are reviewed. White count 9.7, hemoglobin 10.8, macro 34.7, platelet count normal. PTT is 64.8. 05/27/2024, the patient is being seen for a follow-up. The patient is resting comfortably in bed. The patient is known to have chronic lung disease, COPD, chronic hypoxic mindy failure maintained on oxygen 2 L/min nasal cannula, obstructive sleep apnea, chronic A-fib maintained on anticoagulation with Eliquis in addition to previous history of breast cancer, depression, gout and previous history of smoking, and chronic stage III kidney disease. Patient is currently being treated for an acute hypoxic respiratory failure on top of her chronic respiratory failure. She continues to show signs of bronchospasm wheezi ng. She is on DuoNeb nebulized treatments [id number]. She remains on IV Solu-Medrol 40 mg every 8 hours. She remains on Demadex 20 g p.o. daily. The white cell count of 10.8 with hemoglobin of 1.6 and a platelet count of 217. BUN is 78 with a creatinine of 2.0. Sodium is at 138 with a potassium level of 4.9, chlorides 97. 05/28/2024, the patient is being seen for a follow-up. Continues to have cough and congestion and some shortness of breath. She is currently on 2 L of oxygen by nasal cannula. Overnight, the patient was kept on BiPAP at a pressure of 16/5 with an FiO2 40%. She is receiving IV Solu-Medrol 40 mg every 8 hours. She remains on anticoagulation with Eliquis 2.5 mg twice a day. She is also on Demadex 20 mg p.o. twice a day. The patient's fluid balance is -890 cc over the past 24 hours. On her blood work, creatinine is improving and currently is down to 1.7 with a BUN of 72, sodium is at 140 with a potassium level of 4.9. No other significant events overnight. She is currently on 3 L with a pulse ox of 96%. Objective - Vital Signs Vital signs: Vital Signs Temp 97.9 F 05/28/24 07:35 Pulse 70 05/28/24 08:38 Resp 20 05/28/24 08:38 BP 118/76 05/28/24 07:35 Pulse Ox 92 L 05/28/24 07:35 FiO2 40 05/28/24 03:50 Intake & Output 05/27/24 05/28/24 05/28/24 18:59 06:59 18:59 Intake Total 10 240 Output Total 900 Balance -890 240 Weight 71.3 kg Intake: IV 10 0.9 10 Oral 240 Output: Urine 900 Other: Voiding Method Toilet Toilet Toilet # Voids 1 - Exam No acute distress, oriented 3. The patient is currently on 3 L nasal cannula. HEENT examination is grossly unremarkable. Mucous membranes are moist. No oral lesions. Neck supple. Full range of motion. No adenopathy thyromegaly or neck vein distention. Cardiovascular examination reveals regular rhythm rate. S1-S2 normal. No S3 or S4. No discernible murmur noted. Lungs reveal scattered bilateral rhonchi, and basilar crackles. No wheezes. Abdomen soft bowel sounds are heard. No masses or tenderness. Extremities are intact. No cyanosis or clubbing. Trace edema present. Skin is without rash or lesion. Neurologic examination is brief but nonfocal. - Labs CBC & Chem 7: 05/27/24 08:28 05/28/24 06:30 Labs: Abnormal Lab Results - Last 24 Hours (Table) 05/28/24 Range/Units 06:30 Carbon Dioxide 38 H (22-30) mmol/L BUN 72 H (7-17) mg/dL Creatinine 1.76 H (0.52-1.04) mg/dL Glucose 120 H (74-99) mg/dL Assessment and Plan Plan: Acute exacerbation of chronic systolic congestive heart failure. Echocardiogram was done on 05/25/2024 and the patient was found to have impaired the physical function with an ejection fraction of 35 to 40%, moderate tricuspid regurgitation, moderate degree of pulm hypertension. Acute exacerbation of chronic obstructive pulmonary disease. Acute on chronic hypoxemic respiratory failure secondary to above. The patient is currently on oxygen at 3 L/min nasal cannula. Utilizing BiPAP overnight at a pressure of 16 over 5 cm of water. Chronic obstructive pulmonary disease, oxygen dependent. Chronic stage III kidney disease with a component of acute on top of chronic kidney failure, creatinine is improving Former smoker. Chronic atrial fibrillation. The patient is maintained on long-term anticoagulants. Permanent pacemaker implantation. History of gout. History of right sided breast cancer status post radiation with "lung damage" greater than 25 years ago. Plan: Limited improvement compared to yesterday will continue same management. Suggest continuing the bronchodilators and IV Solu-Medrol for another 24 hours and the patient receiving IV Solu-Medrol 40 mg every 8 hours. Keep O2 at 3 L minute nasal cannula BiPAP overnight at the same settings Continue Demadex 20 mg p.o. p.o. twice a day. Continue anticoagulation with Eliquis Continue DuoNeb nebulized treatments [id number] and IV Solu-Medrol Clinically more stable I will continue to follow. Echo results were noted. Monitor renal function, creatinine is improving Will follow
--- NOTE | 2024-05-28 14:33 | P.PN ---
Subjective Progress Note Date: 05/28/24 The patient is a pleasant 79-year-old female patient who is known to our service from before with a past medical history significant for history of cardiomyopathy with an echo from 2022 showing an EF between 35 to 40% with moderate mitral regurgitation and severe pulmonary hypertension as well as permanent atrial fibrillation and also permanent pacemaker as well as valvular heart disease and COPD and chronic hypoxic respiratory failure and also history of heart failure which she presented to the hospital with a progressive exertional dyspnea associated with bilateral lower extremity edema and also chest tightness. She has been compliant with the current dose of oral diuretics at as an outpatient but she clearly was not compliant with low-sodium diet. She reports no dizziness or lightheadedness and no feeling of heart racing or fluttering and no presyncope or syncope and no other cardiovascular symptoms but she underwent further investigation including a chest x-ray came in to be abnormal showing evidence of heart failure with vascular congestions and also NT proBNP came in to be severely elevated. She is known to have chronic kidney disease and currently she is in acute on chronic renal failure. CBC is within normal limits. Electrolytes are within normal limits. She was admitted to the hospital after she was diagnosed with heart failure. The examination is remarkable for distant heart sounds with a systolic murmur and severe bilateral expiratory wheezing and no edema was noted in the lower extremities. Please note that the patient troponin also came in to be elevated. The EKG showed underlying atrial fibrillation with ventricular paced rhythm. May 26, 2024 The patient was seen and evaluated this morning. She continues to be short of breath and continues to have bilateral expiratory wheezing. She still hypervolemic. Otherwise she reports no pain in the chest. The echo showed cardiomyopathy with EF between 35 to 40% which is chronic and moderate mitral an d moderate tricuspid regurgitation. Her creatinine is elevated. The physical examination is remarkable for irregular rhythm with a systolic murmur at the apical area and bilateral expiratory wheezing and no edema was noted in the lower extremities 05/27 The patient is seen and examined. Blood pressure 135/63, heart rate 75, pulse ox 93% on 4 L nasal cannula. Repeat blood work reveals WBC 10.8, hemoglobin 9.6. BUN 78 creatinine 2, potassium 4.9. Patient appears to be comfortable and in no acute distress. The physical examination is remarkable for irregular rhythm with a systolic murmur at the apical area and bilateral expiratory wheezing and no edema was noted in the lower extremities May 28, 2024 BP 128 over 78 mmHg, heart rate 74 bpm BUN 72, creatinine 1.7. He is creatinine was 2.0. Assessment Acute on chronic hypoxic respiratory failure likely to be multifactorial secondary to COPD and CHF Heart failure exacerbation secondary to heart failure with reduced ejection fraction HFrEF, EF 35 to 40% Permanent atrial fibrillation with controlled heart rate Evidence of myocardial injury History of cardiomyopathy Permanent pacemaker COPD exacerbation Chronic hypoxic respiratory failure on home O2 at 2 L nasal cannula Valvular heart disease Pulmonary hypertension Obstructive sleep apnea Multiple comorbid conditions Plan Reduce Eliquis to 2.5 mg twice daily because of age and weight criteria. Continue Farxiga 10 mg, metoprolol succinate 75 mg daily, torsemide 20 mg twice daily. Give iron supplementation. Patient is cleared from cardiovascular standpoint. Cardiology team will sign off would recommend close outpatient follow-up within 1 week after discharge. On outpatient basis she should get device interrogation and what percentage if she ventricularly paced. If 100% paced, consider BiV pacemaker and cardiac resynchronization therapy. Objective - Vital Signs Vital signs: Vital Signs Temp 97.8 F 05/28/24 10:46 Pulse 74 05/28/24 11:54 Resp 20 05/28/24 10:46 BP 128/87 05/28/24 10:46 Pulse Ox 96 05/28/24 10:46 FiO2 40 05/28/24 03:50 Intake & Output 05/27/24 05/28/24 05/28/24 18:59 06:59 18:59 Intake Total 10 420 Output Total 900 Balance -890 420 Weight 71.3 kg Intake: IV 10 0.9 10 Oral 420 Output: Urine 900 Other: Voiding Method Toilet Toilet Toilet # Voids 1 1 - Labs CBC & Chem 7: 05/27/24 08:28 05/28/24 06:30 Labs: Abnormal Lab Results - Last 24 Hours (Table) 05/28/24 Range/Units 06:30 Carbon Dioxide 38 H (22-30) mmol/L BUN 72 H (7-17) mg/dL Creatinine 1.76 H (0.52-1.04) mg/dL Glucose 120 H (74-99) mg/dL
[2024-05-29 08:27] LABS: African American GFR (CKD) 31 (>60 ml/min/1.73 sqM); Anion Gap 5 mmol/L; Blood Urea Nitrogen 76 mg/dL (7-17); Calcium 8.9 mg/dL (8.4-10.2); Carbon Dioxide 35 mmol/L (22-30); Chloride 99 mmol/L (98-107); Glucose 146 mg/dL (74-99); Non-African American GFR(CKD) 27 (>60 ml/min/1.73 sqM); Potassium 4.7 mmol/L (3.5-5.1); Sodium 139 mmol/L (137-145)
[2024-05-29] MEDS: methylPREDNISolone SOD SUCCI 125 MG/2 ML VIAL IV SCH (11:15)
--- NOTE | 2024-05-29 12:02 | P.PN ---
Subjective Progress Note Date: 05/29/24 patient is 79-year-old lady with past medical history significant for hypertension, COPD, CHF presented the ER because of shortness of breath. Patient stated that she was all right this morning when she started Noticing shortness of breath. Shortness of breath was present on rest as on exertion. Patient was complaining of chest tightness. Denied any chest pain. Patient has chronic cough. There is no complaint of fever or chills. Patient was complaining of orthopnea. Denied any swelling of lower extremities. There was no complaint of palpitations. Patient denied any nausea, vomiting or abdo adam pain. Because of worsening shortness of breath, patient presented the ER. Initial lab work done in the ER showed CBC 10, hemoglobin 12.1, platelet count 201, sodium 140, potassium 4.2, BUN 53, creatinine 2.15, glucose 122 troponin 0.036 Influenza A not detected Influenza B not detected RSV not detected COVID-19 not detected EKG done in the ER showed heart rate of 87, paced rhythm Chest x-ray done in the ER showed cardiomegaly with mild central vascular congestion, suggesting CHF exacerbation Patient admitted to internal medicine service 05/25. Patient seen and examined. Blood work done showed WBC 8.6, hemoglobin 9.2, sodium 142, potassium 4.7, BUN 64, creatinine 2.11 glucose 136. Currently on 3 liters of oxygen. States she feels much better, breathing is improved. 05/26. Patient seen and examined. Heparin discontinued, patient switched back to Eliquis. States breathing has improved. 05/27/2024 Patient evaluated today in follow-up in the medical floor. Continues on IV Las ix and has significant scattered wheezing noted. EF is 35 to 40%. BUN of 78 creatinine of 2.00. 05/28/2024 Patient is evaluated today in follow-up sitting up at the edge of the bed. She continues to report improvement in her shortness of breath. She does have some scattered wheezing noted again today. Patient has been transition to oral torsemide. Continues on IV Solu-Medrol. Patient is not quite ready for discharge. 05/29/2024 Evaluated today resting in bed. She does continue to report shortness of breath and having scattered wheezing on exam today. Remains on oral torsemide. Elisabeth radford is following this patient closely and steroids have been increased to 60 mg every 6 hours for the wheezing. She continues on Symbicort twice a day as well as DuoNebs 3 times a day scheduled and as needed. BUN is 76 creatinine is 1.76. REVIEW OF SYSTEMS: CONSTITUTIONAL: No fever, no malaise,. CARDIOVASCULAR: No chest pain, no palpitations, no syncope. PULMONARY: No shortness of breath, no cough, GASTROINTESTINAL: No diarrhea, no nausea, no vomiting, no abdominal pain. NEUROLOGICAL: No headaches, no weakness, PHYSICAL EXAMINATION: GENERAL: The patient is alert and oriented x3, not in any acute distress. Ill looking HEENT: Pupils are round and equally reacting to light. EOMI. No scleral icterus. No conjunctival pallor. Normocephalic, atraumatic. No pharyngeal erythema. No th yromegaly. CARDIOVASCULAR: S1 and S2 present. No murmurs, rubs, or gallops. PULMONARY: Scattered wheezing throughout ABDOMEN: Soft, nontender, nondistended, normoactive bowel sounds. No palpable organomegaly. MUSCULOSKELETAL: No joint swelling or deformity. EXTREMITIES: No cyanosis, clubbing, or pedal edema. NEUROLOGICAL: Gross neurological examination did not reveal any focal deficits. SKIN: No rashes. Assessment and plan Acute on chronic systolic heart failure Acute COPD exacerbation Mild to moderate aortic regurgitation and severe tricuspid regurgitation Severe pulmonary hypertension Atrial fibrillation, paroxysmal Acute on chronic hypoxic respiratory failure Pulmonary Hypertension History of pacemaker implantation Acute on chronic kidney disease Mild hyperkalemia GI prophylaxis DVT prophylaxis on eliquis Plan Encourage use of incentive spirometer Strict I's and O's, daily weights Continue Eliquis Transitioned back to oral torsemide Continue IV Solu-Medrol dose increased up to 60 mg every 6 hours today Continue breathing treatments Procalcitonin level Pulmonology following Cardiology following Labs and medication were reviewed.. Continue same treatment. Continue with symptomatic treatment. Resume home medication. Monitor labs and vitals. DVT and GI prophylaxis. Further recommendations as per clinical course of the patient Dictation was produced using [employer] dictation software. please excuse any grammatical, word or spelling errors. The impression and plan of care has been dictated by Anne Marie Bell, Nurse Practitioner as directed. Dr. Sekou MD I have performed a history and physical examination and medical decision making of this patient, discussed the same with the dictator, and agree with the dictators assessment and plan as written, documented as a scribe. Based on total visit time, I have performed more than 50% of this visit. Objective - Vital Signs Vital signs: Vital Signs Temp 97.8 F 05/29/24 11:19 Pulse 70 05/29/24 11:19 Resp 20 05/29/24 07:29 BP 110/69 05/29/24 11:19 Pulse Ox 95 05/29/24 11:19 FiO2 40 05/29/24 04:30 Intake & Output 05/28/24 05/29/24 05/29/24 18:59 06:59 18:59 Intake Total 600 180 Output Total 800 1400 Balance -200 -1400 180 Weight 72.3 kg Intake: Oral 600 180 Output: Urine 800 1400 Other: Voiding Method Toilet Toilet Toilet # Voids 1 - Labs CBC & Chem 7: 05/27/24 08:28 05/29/24 07:08 Labs: Abnormal Lab Results - Last 24 Hours (Table) 05/29/24 Range/Units 07:08 Carbon Dioxide 35 H (22-30) mmol/L BUN 76 H (7-17) mg/dL Creatinine 1.76 H (0.52-1.04) mg/dL Glucose 146 H (74-99) mg/dL Assessment and Plan Time with Patient: Less than 30
--- NOTE | 2024-05-29 12:15 | P.PN ---
Subjective Progress Note Date: 05/29/24 This is a 79-year-old female patient with a known history of breast cancer status post radiation with lung damage greater than 25 years ago, chronic obstructive pulmonary disease, chronic hypoxemic respiratory failure on home oxygen at 2 to 3 L, obstructive sleep apnea on home BiPAP, atrial fibrillation anticoagulated with Eliquis, gout, depression, former smoker. He presented here to the emergency room earlier this morning with increasing shortness of breath cough and congestion. Several family members in the home have been sick with upper respiratory infections. X-ray shows cardiomegaly with mild central vascular congestion and fluid volume overload. There is a focal right basilar infiltrate/atelectasis. White count 10.0. Hemoglobin 12.1. Platelets 201. INR 1.1. D-dimer 0.44. Sodium 140. Potassium 4.0. Bicarb 36. BUN 53. Creatinine 2.15. Glucose 122. Troponin 0.036, 0.030, 0.024. proBNP 10,600. Procalcitonin negative at 0.6. Viral screen negative. She is seen in [facility] in the emergency department. She is currently sitting up on the stretcher. Awake and alert in no acute distress. She had initially been on BiPAP 16/5 and 40% FiO2. She is currently on oxygen at 5 L/min per nasal cannula. Feeling a bit better since she came in. No fever or chills. No he moptysis. He has been initiated on DuoNeb inhalations, Symbicort, Singulair, Solu-Medrol. Anticoagulated with Eliquis. Initiated on Lasix 40 mg IV every 12 hours. Progress note dated May 25, 2024. 79-year-old female seen yesterday in consultation. The patient was admitted with shortness of breath, was thought to have CHF. Currently, she is on 3 L of oxygen. She did use BiPAP, with settings of 16/5, and 40%. She is sitting up in a chair next to her hospital bed. She states that her breathing is improved. Current labs include a white count 8.6, hemoglobin 9.2, macro 36.2, and a pl atelet count of 214,000. Sodium 142, potassium 4.7, chlorides 97, CO2 38, BUN 64, creatinine 2.11. Glucose is 136. Progress note dated May 26, 2024. 79-year-old female seen in room 356. The patient continues on nasal O2 at 3 L. No IV fluids. The patient did use BiPAP last night, with settings of 16/5, and 40%. When asked, the patient states that she is feeling much better. She states that her breathing is much improved, she denies any shortness of breath, cough, wheezing, chest tightness, or phlegm production. She also denies any chest pain or pressure. Labs are reviewed. White count 9.7, hemoglobin 10.8, macro 34.7, platelet count normal. PTT is 64.8. 05/27/2024, the patient is being seen for a follow-up. The patient is resting comfortably in bed. The patient is known to have chronic lung disease, COPD, chronic hypoxic mindy failure maintained on oxygen 2 L/min nasal cannula, obstructive sleep apnea, chronic A-fib maintained on anticoagulation with Eliquis in addition to previous history of breast cancer, depression, gout and previous history of smoking, and chronic stage III kidney disease. Patient is currently being treated for an acute hypoxic respiratory failure on top of her chronic respiratory failure. She continues to show signs of bronchospasm wheezi ng. She is on DuoNeb nebulized treatments [id number]. She remains on IV Solu-Medrol 40 mg every 8 hours. She remains on Demadex 20 g p.o. daily. The white cell count of 10.8 with hemoglobin of 1.6 and a platelet count of 217. BUN is 78 with a creatinine of 2.0. Sodium is at 138 with a potassium level of 4.9, chlorides 97. 05/28/2024, the patient is being seen for a follow-up. Continues to have cough and congestion and some shortness of breath. She is currently on 2 L of oxygen by nasal cannula. Overnight, the patient was kept on BiPAP at a pressure of 16/5 with an FiO2 40%. She is receiving IV Solu-Medrol 40 mg every 8 hours. She remains on anticoagulation with Eliquis 2.5 mg twice a day. She is also on Demadex 20 mg p.o. twice a day. The patient's fluid balance is -890 cc over the past 24 hours. On her blood work, creatinine is improving and currently is down to 1.7 with a BUN of 72, sodium is at 140 with a potassium level of 4.9. No other significant events overnight. She is currently on 3 L with a pulse ox of 96%. On 05/29/2024, the patient is being seen for a follow-up. Still bronchospastic and wheezy and she continues to have some congested chest. No fever. No chills. No sputum production. Remains on DuoNeb nebulized treatments and Symbicort as maintenance. She remains on IV Solu-Medrol 40 mg every 8 hours. Creatinine is at 1.7 with BUN of 76 and both are stable. Sodium levels at 139 with a potassium level of 4.7. Hemoglobin is 11.6. Objective - Vital Signs Vital signs: Vital Signs Temp 97.8 F 05/29/24 07:28 Pulse 68 05/29/24 09:39 Resp 20 05/29/24 07:29 BP 128/87 05/29/24 07:28 Pulse Ox 94 L 05/29/24 07:28 FiO2 40 05/29/24 04:30 Intake & Output 05/28/24 05/29/24 05/29/24 18:59 06:59 18:59 Intake Total 600 180 Output Total 800 1400 Balance -200 -1400 180 Weight 72.3 kg Intake: Oral 600 180 Output: Urine 800 1400 Other: Voiding Method Toilet Toilet Toilet # Voids 1 - Exam No acute distress, oriented 3. The patient is currently on 3 L nasal cannula. HEENT examination is grossly unremarkable. Mucous membranes are moist. No oral lesions. Neck supple. Full range of motion. No adenopathy thyromegaly or neck vein d istention. Cardiovascular examination reveals regular rhythm rate. S1-S2 normal. No S3 or S4. No discernible murmur noted. Lungs reveal scattered bilateral rhonchi, and basilar crackles. No wheezes. Abdomen soft bowel sounds are heard. No masses or tenderness. Extremities are intact. No cyanosis or clubbing. Trace edema present. Skin is without rash or lesion. Neurologic examination is brief but nonfocal. - Labs CBC & Chem 7: 05/27/24 08:28 05/29/24 07:08 Labs: Abnormal Lab Results - Last 24 Hours (Table) 05/29/24 Range/Units 07:08 Carbon Dioxide 35 H (22-30) mmol/L BUN 76 H (7-17) mg/dL Creatinine 1.76 H (0.52-1.04) mg/dL Glucose 146 H (74-99) mg/dL Assessment and Plan Plan: Acute exacerbation of chronic systolic congestive heart failure. Echocardiogram was done on 05/25/2024 and the patient was found to have impaired the physical function with an ejection fraction of 35 to 40%, moderate tricuspid regurgitation, moderate degree of pulm hypertension. Acute exacerbation of chronic obstructive pulmonary disease. The patient co ntinues to be bronchospastic and wheezy. Utilizing the BiPAP overnight. Acute on chronic hypoxemic respiratory failure secondary to above. The patient is currently on oxygen at 3 L/min nasal cannula. Utilizing BiPAP overnight at a pressure of 16 over 5 cm of water. Chronic obstructive pulmonary disease, oxygen dependent. Chronic stage III kidney disease with a component of acute on top of chronic kidney failure, creatinine is improving Former smoker. Chronic atrial fibrillation. The patient is maintained on long-term anticoagulants. Permanent pacemaker implantation. History of gout. History of right sided breast cancer status post radiation with "lung damage" greater than 25 years ago. Plan: Limited improvement compared to yesterday will continue same management. Increase the IV Solu-Medrol 60 mg every 6 hours Keep O2 at 3 L minute nasal cannula BiPAP overnight at the same settings Continue Demadex 20 mg p.o. p.o. twice a day. Continue anticoagulation with Eliquis Continue DuoNeb nebulized treatments [id number] Clinically more stable I will continue to follow. Echo results were noted. Monitor renal function, creatinine is improving Will follow
[2024-05-30 07:01] LABS: African American GFR (CKD) 36 (>60 ml/min/1.73 sqM); Anion Gap 3 mmol/L; Blood Urea Nitrogen 74 mg/dL (7-17); Calcium 8.6 mg/dL (8.4-10.2); Carbon Dioxide 36 mmol/L (22-30); Chloride 100 mmol/L (98-107); Glucose 135 mg/dL (74-99); Non-African American GFR(CKD) 31 (>60 ml/min/1.73 sqM); Potassium 4.6 mmol/L (3.5-5.1); Sodium 139 mmol/L (137-145)
--- NOTE | 2024-05-30 14:31 | P.PN ---
Subjective Progress Note Date: 05/30/24 This is a 79-year-old female patient with a known history of breast cancer status post radiation with lung damage greater than 25 years ago, chronic obstructive pulmonary disease, chronic hypoxemic respiratory failure on home oxygen at 2 to 3 L, obstructive sleep apnea on home BiPAP, atrial fibrillation anticoagulated with Eliquis, gout, depression, former smoker. He presented here to the emergency room earlier this morning with increasing shortness of breath cough and congestion. Several family members in the home have been sick with upper respiratory infections. X-ray shows cardiomegaly with mild central vascular congestion and fluid volume overload. There is a focal right basilar infiltrate/atelectasis. White count 10.0. Hemoglobin 12.1. Platelets 201. INR 1.1. D-dimer 0.44. Sodium 140. Potassium 4.0. Bicarb 36. BUN 53. Creatinine 2.15. Glucose 122. Troponin 0.036, 0.030, 0.024. proBNP 10,600. Procalcitonin negative at 0.6. Viral screen negative. She is seen in [facility] in the emergency department. She is currently sitting up on the stretcher. Awake and alert in no acute distress. She had initially been on BiPAP 16/5 and 40% FiO2. She is currently on oxygen at 5 L/min per nasal cannula. Feeling a bit better since she came in. No fever or chills. No he moptysis. He has been initiated on DuoNeb inhalations, Symbicort, Singulair, Solu-Medrol. Anticoagulated with Eliquis. Initiated on Lasix 40 mg IV every 12 hours. Progress note dated May 25, 2024. 79-year-old female seen yesterday in consultation. The patient was admitted with shortness of breath, was thought to have CHF. Currently, she is on 3 L of oxygen. She did use BiPAP, with settings of 16/5, and 40%. She is sitting up in a chair next to her hospital bed. She states that her breathing is improved. Current labs include a white count 8.6, hemoglobin 9.2, macro 36.2, and a pl atelet count of 214,000. Sodium 142, potassium 4.7, chlorides 97, CO2 38, BUN 64, creatinine 2.11. Glucose is 136. Progress note dated May 26, 2024. 79-year-old female seen in room 356. The patient continues on nasal O2 at 3 L. No IV fluids. The patient did use BiPAP last night, with settings of 16/5, and 40%. When asked, the patient states that she is feeling much better. She states that her breathing is much improved, she denies any shortness of breath, cough, wheezing, chest tightness, or phlegm production. She also denies any chest pain or pressure. Labs are reviewed. White count 9.7, hemoglobin 10.8, macro 34.7, platelet count normal. PTT is 64.8. 05/27/2024, the patient is being seen for a follow-up. The patient is resting comfortably in bed. The patient is known to have chronic lung disease, COPD, chronic hypoxic mindy failure maintained on oxygen 2 L/min nasal cannula, obstructive sleep apnea, chronic A-fib maintained on anticoagulation with Eliquis in addition to previous history of breast cancer, depression, gout and previous history of smoking, and chronic stage III kidney disease. Patient is currently being treated for an acute hypoxic respiratory failure on top of her chronic respiratory failure. She continues to show signs of bronchospasm wheezi ng. She is on DuoNeb nebulized treatments [id number]. She remains on IV Solu-Medrol 40 mg every 8 hours. She remains on Demadex 20 g p.o. daily. The white cell count of 10.8 with hemoglobin of 1.6 and a platelet count of 217. BUN is 78 with a creatinine of 2.0. Sodium is at 138 with a potassium level of 4.9, chlorides 97. 05/28/2024, the patient is being seen for a follow-up. Continues to have cough and congestion and some shortness of breath. She is currently on 2 L of oxygen by nasal cannula. Overnight, the patient was kept on BiPAP at a pressure of 16/5 with an FiO2 40%. She is receiving IV Solu-Medrol 40 mg every 8 hours. She remains on anticoagulation with Eliquis 2.5 mg twice a day. She is also on Demadex 20 mg p.o. twice a day. The patient's fluid balance is -890 cc over the past 24 hours. On her blood work, creatinine is improving and currently is down to 1.7 with a BUN of 72, sodium is at 140 with a potassium level of 4.9. No other significant events overnight. She is currently on 3 L with a pulse ox of 96%. On 05/29/2024, the patient is being seen for a follow-up. Still bronchospastic and wheezy and she continues to have some congested chest. No fever. No chills. No sputum production. Remains on DuoNeb nebulized treatments and Symbicort as maintenance. She remains on IV Solu-Medrol 40 mg every 8 hours. Creatinine is at 1.7 with BUN of 76 and both are stable. Sodium levels at 139 with a potassium level of 4.7. Hemoglobin is 11.6. On 05/30/2024, the patient is feeling improved and less short of breath and less bronchospastic and wheezy. The patient has no new complaints. The patient improved after adjustment in her IV Solu-Medrol dose and the patient clinically is on high-dose Solu-Medrol 60 mg every 6 hours. She remains on bronchodilators [id number]. Her renal function continues to improve. Creatinine is down to 1.58 with a BUN of 74, sodium levels at 139, blood sugar is at 135. Procalcitonin level is at 0.04. No other new complaints otherwise for now. She remains on oxygen and she is currently at 3 L with a pulse ox of 93%. Objective - Vital Signs Vital signs: Vital Signs Temp 96.9 F L 05/30/24 07:44 Pulse 84 05/30/24 08:13 Resp 19 05/30/24 07:44 BP 111/58 05/30/24 07:44 Pulse Ox 91 L 05/30/24 07:44 FiO2 40 05/30/24 04:45 Intake & Output 05/29/24 05/30/24 05/30/24 18:59 06:59 18:59 Intake Total 420 257 128 Output Total 600 1600 350 Balance -180 -1343 -222 Weight 72.2 kg Intake: IV 20 10 Invasive Line 2 20 10 Oral 420 237 118 Output: Urine 600 1600 350 Other: Voiding Method Toilet Toilet Toilet - Exam No acute distress, oriented 3. The patient is currently on 3 L nasal cannula. HEENT examination is grossly unremarkable. Mucous membranes are moist. No oral lesions. Neck supple. Full range of motion. No adenopathy thyromegaly or neck vein distention. Cardiovascular examination reveals regular rhythm rate. S1-S2 normal. No S3 or S4. No discernible murmur noted. Lungs reveal scattered bilateral rhonchi, and basilar crackles. No wheezes. Abdomen soft bowel sounds are heard. No masses or tenderness. Extremities are intact. No cyanosis or clubbing. Trace edema present. Skin is without rash or lesion. Neurologic examination is brief but nonfocal. - Labs CBC & Chem 7: 05/27/24 08:28 05/30/24 06:24 Labs: Abnormal Lab Results - Last 24 Hours (Table) 05/30/24 Range/Units 06:24 Carbon Dioxide 36 H (22-30) mmol/L BUN 74 H (7-17) mg/dL Creatinine 1.58 H (0.52-1.04) mg/dL Glucose 135 H (74-99) mg/dL Assessment and Plan Plan: Acute exacerbation of chronic systolic congestive heart failure. Echocardiogram was done on 05/25/2024 and the patient was found to have impaired the physical function with an ejection fraction of 35 to 40%, moderate tricuspid regurgitation, moderate degree of pulm hypertension. Clinically stable and improving. Acute exacerbation of chronic obstructive pulmonary disease. The patient contin ues to be bronchospastic and wheezy. Utilizing the BiPAP overnight. Acute on chronic hypoxemic respiratory failure secondary to above. The patient is currently on oxygen at 3 L/min nasal cannula. Utilizing BiPAP overnight at a pressure of 16 over 5 cm of water. Chronic obstructive pulmonary disease, oxygen dependent. Chronic stage III kidney disease with a component of acute on top of chronic kidney failure, creatinine is improving Former smoker. Chronic atrial fibrillation. The patient is maintained on long-term anticoagulants. Permanent pacemaker implantation. History of gout. History of right sided breast cancer status post radiation with "lung damage" greater than 25 years ago. Plan: Patient continues to show signs of improvement. Continue IV Solu-Medrol 60 mg every 6 hours for another 24 hours and will consider tapering off the steroids as of tomorrow Keep O2 at 3 L minute nasal cannula BiPAP overnight at the same settings Continue Demadex 20 mg p.o. p.o. twice a day. Continue anticoagulation with Eliquis Continue DuoNeb nebulized treatments [id number] Clinically more stable I will continue to follow. Echo results were noted. Monitor renal function, creatinine is improving Will follow
--- NOTE | 2024-05-30 20:02 | P.PN ---
Subjective Progress Note Date: 05/30/24 patient is 79-year-old lady with past medical history significant for hypertension, COPD, CHF presented the ER because of shortness of breath. Patient stated that she was all right this morning when she started Noticing shortness of breath. Shortness of breath was present on rest as on exertion. Patient was complaining of chest tightness. Denied any chest pain. Patient has chronic cough. There is no complaint of fever or chills. Patient was complaining of orthopnea. Denied any swelling of lower extremities. There was no complaint of palpitations. Patient denied any nausea, vomiting or abdo adam pain. Because of worsening shortness of breath, patient presented the ER. Initial lab work done in the ER showed CBC 10, hemoglobin 12.1, platelet count 201, sodium 140, potassium 4.2, BUN 53, creatinine 2.15, glucose 122 troponin 0.036 Influenza A not detected Influenza B not detected RSV not detected COVID-19 not detected EKG done in the ER showed heart rate of 87, paced rhythm Chest x-ray done in the ER showed cardiomegaly with mild central vascular congestion, suggesting CHF exacerbation Patient admitted to internal medicine service 05/25. Patient seen and examined. Blood work done showed WBC 8.6, hemoglobin 9.2, sodium 142, potassium 4.7, BUN 64, creatinine 2.11 glucose 136. Currently on 3 liters of oxygen. States she feels much better, breathing is improved. 05/26. Patient seen and examined. Heparin discontinued, patient switched back to Eliquis. States breathing has improved. 05/27/2024 Patient evaluated today in follow-up in the medical floor. Continues on IV [place] and has significant scattered wheezing noted. EF is 35 to 40%. BUN of 78 creatinine of 2.00. 05/28/2024 Patient is evaluated today in follow-up sitting up at the edge of the bed. She continues to report improvement in her shortness of breath. She does have some scattered wheezing noted again today. Patient has been transition to oral torsemide. Continues on IV Solu-Medrol. Patient is not quite ready for discharge. 05/29/2024 Evaluated today resting in bed. She does continue to report shortness of breath and having scattered wheezing on exam today. Remains on oral torsemide. Elisabeth radford is following this patient closely and steroids have been increased to 60 mg every 6 hours for the wheezing. She continues on Symbicort twice a day as well as DuoNebs 3 times a day scheduled and as needed. BUN is 76 creatinine is 1.76. 05/30/2024 Patient evaluated today sitting up on the edge of the bed. She reports feeling less short of breath. Still with scattered wheezing and not quite ready for discharged today. Remains on IV solumedrol. Oral torsemide. On oxygen 3L nasal cannula. Creatinine 1.58 today. REVIEW OF SYSTEMS: CONSTITUTIONAL: No fever, no malaise,. CARDIOVASCULAR: No chest pain, no palpitations, no syncope. PULMONARY: No shortness of breath, no cough, GASTROINTESTINAL: No diarrhea, no nausea, no vomiting, no abdominal pain. NEUROLOGICAL: No headaches, no weakness, PHYSICAL EXAMINATION: GENERAL: The patient is alert and oriented x3, not in any acute distress. Ill looking HEENT: Pupils are round and equally reacting to light. EOMI. No scleral icterus. No conjunctival pallor. Normocephalic, atraumatic. No pharyngeal erythema. No thyromegaly. CARDIOVASCULAR: S1 and S2 present. No murmurs, rubs, or gallops. PULMONARY: Scattered wheezing throughout ABDOMEN: Soft, nontender, nondistended, normoactive bowel sounds. No palpable organomegaly. MUSCULOSKELETAL: No joint swelling or deformity. EXTREMITIES: No cyanosis, clubbing, or pedal edema. NEUROLOGICAL: Gross neurological examination did not reveal any focal deficits. SKIN: No rashes. Assessment and plan Acute on chronic systolic heart failure Acute COPD exacerbation Mild to moderate aortic regurgitation and severe tricuspid regurgitation Severe pulmonary hypertension Atrial fibrillation, paroxysmal Acute on chronic hypoxic respiratory failure Pulmonary Hypertension History of pacemaker implantation Acute on chronic kidney disease Mild hyperkalemia GI prophylaxis DVT prophylaxis on eliquis Plan Encourage use of incentive spirometer Strict I's and O's, daily weights Continue Eliquis Transitioned back to oral torsemide Continue IV Solu-Medrol dose increased up to 60 mg every 6 hours today Continue breathing treatments Pulmonology following Cardiology following Labs and medication were reviewed.. Continue same treatment. Continue with symptomatic treatment. Resume home medication. Monitor labs and vitals. DVT and GI prophylaxis. Further recommendations as per clinical course of the patient Dictation was produced using [employer] dictation software. please excuse any grammatical, word or spelling errors. The impression and plan of care has been dictated by Anne Marie Bell Nurse Practitioner as directed. Dr. Sekou MD I have performed a history and physical examination and medical decision making of this patient, discussed the same with the dictator, and agree with the dictators assessment and plan as written, documented as a scribe. Based on total visit time, I have performed more than 50% of this visit. Objective - Vital Signs Vital signs: Vital Signs Temp 98.1 F 05/30/24 16:05 Pulse 75 05/30/24 16:05 Resp 16 05/30/24 16:05 BP 125/66 05/30/24 16:05 Pulse Ox 93 L 05/30/24 16:05 FiO2 40 05/30/24 04:45 Intake & Output 05/30/24 05/30/24 05/31/24 06:59 18:59 06:59 Intake Total 257 364 Output Total 1600 350 Balance -1343 14 Weight 72.2 kg Intake: IV 20 10 Invasive Line 2 20 10 Oral 237 354 Output: Urine 1600 350 Other: Voiding Method Toilet Toilet # Voids 3 - Labs CBC & Chem 7: 05/27/24 08:28 05/30/24 06:24 Labs: Abnormal Lab Results - Last 24 Hours (Table) 05/30/24 Range/Units 06:24 Carbon Dioxide 36 H (22-30) mmol/L BUN 74 H (7-17) mg/dL Creatinine 1.58 H (0.52-1.04) mg/dL Glucose 135 H (74-99) mg/dL
[2024-05-30] MEDS: NYSTATIN 100,000 UNIT/ML SUSP 500,000 UNIT/5 ML CUP PO SCH (23:11)
[2024-05-31] MEDS: predniSONE 20 MG TAB PO SCH (13:14)
--- NOTE | 2024-05-31 15:09 | P.PN ---
Subjective Progress Note Date: 05/31/24 This is a 79-year-old female patient with a known history of breast cancer status post radiation with lung damage greater than 25 years ago, chronic obstructive pulmonary disease, chronic hypoxemic respiratory failure on home oxygen at 2 to 3 L, obstructive sleep apnea on home BiPAP, atrial fibrillation anticoagulated with Eliquis, gout, depression, former smoker. He presented here to the emergency room earlier this morning with increasing shortness of breath cough and congestion. Several family members in the home have been sick with upper respiratory infections. X-ray shows cardiomegaly with mild central vascular congestion and fluid volume overload. There is a focal right basilar infiltrate/atelectasis. White count 10.0. Hemoglobin 12.1. Platelets 201. INR 1.1. D-dimer 0.44. Sodium 140. Potassium 4.0. Bicarb 36. BUN 53. Creatinine 2.15. Glucose 122. Troponin 0.036, 0.030, 0.024. proBNP 10,600. Procalcitonin negative at 0.6. Viral screen negative. She is seen in [facility] in the emergency department. She is currently sitting up on the stretcher. Awake and alert in no acute distress. She had initially been on BiPAP 16/5 and 40% FiO2. She is currently on oxygen at 5 L/min per nasal cannula. Feeling a bit better since she came in. No fever or chills. No he moptysis. He has been initiated on DuoNeb inhalations, Symbicort, Singulair, Solu-Medrol. Anticoagulated with Eliquis. Initiated on Lasix 40 mg IV every 12 hours. Progress note dated May 25, 2024. 79-year-old female seen yesterday in consultation. The patient was admitted with shortness of breath, was thought to have CHF. Currently, she is on 3 L of oxygen. She did use BiPAP, with settings of 16/5, and 40%. She is sitting up in a chair next to her hospital bed. She states that her breathing is improved. Current labs include a white count 8.6, hemoglobin 9.2, macro 36.2, and a pl atelet count of 214,000. Sodium 142, potassium 4.7, chlorides 97, CO2 38, BUN 64, creatinine 2.11. Glucose is 136. Progress note dated May 26, 2024. 79-year-old female seen in room 356. The patient continues on nasal O2 at 3 L. No IV fluids. The patient did use BiPAP last night, with settings of 16/5, and 40%. When asked, the patient states that she is feeling much better. She states that her breathing is much improved, she denies any shortness of breath, cough, wheezing, chest tightness, or phlegm production. She also denies any chest pain or pressure. Labs are reviewed. White count 9.7, hemoglobin 10.8, macro 34.7, platelet count normal. PTT is 64.8. 05/27/2024, the patient is being seen for a follow-up. The patient is resting comfortably in bed. The patient is known to have chronic lung disease, COPD, chronic hypoxic mindy failure maintained on oxygen 2 L/min nasal cannula, obstructive sleep apnea, chronic A-fib maintained on anticoagulation with Eliquis in addition to previous history of breast cancer, depression, gout and previous history of smoking, and chronic stage III kidney disease. Patient is currently being treated for an acute hypoxic respiratory failure on top of her chronic respiratory failure. She continues to show signs of bronchospasm wheezi ng. She is on DuoNeb nebulized treatments [id number]. She remains on IV Solu-Medrol 40 mg every 8 hours. She remains on Demadex 20 g p.o. daily. The white cell count of 10.8 with hemoglobin of 1.6 and a platelet count of 217. BUN is 78 with a creatinine of 2.0. Sodium is at 138 with a potassium level of 4.9, chlorides 97. 05/28/2024, the patient is being seen for a follow-up. Continues to have cough and congestion and some shortness of breath. She is currently on 2 L of oxygen by nasal cannula. Overnight, the patient was kept on BiPAP at a pressure of 16/5 with an FiO2 40%. She is receiving IV Solu-Medrol 40 mg every 8 hours. She remains on anticoagulation with Eliquis 2.5 mg twice a day. She is also on Demadex 20 mg p.o. twice a day. The patient's fluid balance is -890 cc over the past 24 hours. On her blood work, creatinine is improving and currently is down to 1.7 with a BUN of 72, sodium is at 140 with a potassium level of 4.9. No other significant events overnight. She is currently on 3 L with a pulse ox of 96%. On 05/29/2024, the patient is being seen for a follow-up. Still bronchospastic and wheezy and she continues to have some congested chest. No fever. No chills. No sputum production. Remains on DuoNeb nebulized treatments and Symbicort as maintenance. She remains on IV Solu-Medrol 40 mg every 8 hours. Creatinine is at 1.7 with BUN of 76 and both are stable. Sodium levels at 139 with a potassium level of 4.7. Hemoglobin is 11.6. On 05/30/2024, the patient is feeling improved and less short of breath and less bronchospastic and wheezy. The patient has no new complaints. The patient improved after adjustment in her IV Solu-Medrol dose and the patient clinically is on high-dose Solu-Medrol 60 mg every 6 hours. She remains on bronchodilators [id number]. Her renal function continues to improve. Creatinine is down to 1.58 with a BUN of 74, sodium levels at 139, blood sugar is at 135. Procalcitonin level is at 0.04. No other new complaints otherwise for now. She remains on oxygen and she is currently at 3 L with a pulse ox of 93%. 05/31/2024, the patient is feeling better. Less short of breath. Continues to have some residual congestion. No significant sputum production. Less bronchospastic and wheezy compared to yesterday. BUN 70 Keys catheter 1.58 and a potassium level is at 4.6 and a chloride is at 100 with a sodium level of 139. She is on IV Solu-Medrol 60 mg every 6 hours and the patient will be switched to prednisone burst taper. She remains on Symbicort. She remains on DuoNeb the regiment [id number]. She remains on Demadex 20 mg p.o. twice a day. No other significant events overnight. Oxygen requirements are at 3 L with a pulse ox of 95%. Objective - Vital Signs Vital signs: Vital Signs Temp 97.6 F 05/31/24 10:56 Pulse 70 05/31/24 10:56 Resp 19 05/31/24 10:56 BP 133/67 05/31/24 10:56 Pulse Ox 95 05/31/24 10:56 FiO2 40 05/31/24 03:45 Intake & Output 05/30/24 05/31/24 05/31/24 18:59 06:59 18:59 Intake Total 364 257 10 Output Total 350 900 Balance 14 -643 10 Weight 71.8 kg Intake: IV 10 20 10 Invasive Line 2 10 20 10 Oral 354 237 Output: Urine 350 900 Other: Voiding Method Toilet Toilet Toilet # Voids 3 2 - Exam No acute distress, oriented 3. The patient is currently on 3 L nasal cannula. HEENT examination is grossly unremarkable. Mucous membranes are moist. No oral lesions. Neck supple. Full range of motion. No adenopathy thyromegaly or neck vein distention. Cardiovascular examination reveals regular rhythm rate. S1-S2 normal. No S3 or S4. No discernible murmur noted. Lungs reveal scattered bilateral rhonchi, and basilar crackles. No wheezes. Abdomen soft bowel sounds are heard. No masses or tenderness. Extremities are intact. No cyanosis or clubbing. Trace edema present. Skin is without rash or lesion. Neurologic examination is brief but nonfocal. - Labs CBC & Chem 7: 05/27/24 08:28 05/30/24 06:24 Assessment and Plan Plan: Acute exacerbation of chronic systolic congestive heart failure. Echocardiogram was done on 05/25/2024 and the patient was found to have impaired the physical function with an ejection fraction of 35 to 40%, moderate tricuspid regurgitation, moderate degree of pulm hypertension. Clinically stable and imp roving. Acute exacerbation of chronic obstructive pulmonary disease. The patient continues to be bronchospastic and wheezy. Utilizing the BiPAP overnight. Acute on chronic hypoxemic respiratory failure secondary to above. The patient is currently on oxygen at 3 L/min nasal cannula. Utilizing BiPAP overnight at a pressure of 16 over 5 cm of water. Chronic obstructive pulmonary disease, oxygen dependent. Chronic stage III kidney disease with a component of acute on top of chronic kidney failure, creatinine is improving Former smoker. Chronic atrial fibrillation. The patient is maintained on long-term anticoagulants. Permanent pacemaker implantation. History of gout. History of right sided breast cancer status post radiation with "lung damage" greater than 25 years ago. Plan: Clinically improved Discontinue IV Solu-Medrol start the patient on prednisone burst taper Keep O2 at 3 L minute nasal cannula BiPAP overnight at the same settings Continue Demadex 20 mg p.o. p.o. twice a day. Continue anticoagulation with Eliquis Continue DuoNeb nebulized treatments [id number] Clinically more stable I will continue to follow. Echo results were noted. Monitor renal function, creatinine is improving Will follow
[2024-06-01 06:58] LABS: Basophils % (A) 0 %; Eosinophils # (A) 0.1 k/uL (0-0.7); Eosinophils % (A) 0 %; HCT 37.1 % (34.0-46.0); HGB 11.7 gm/dL (11.4-16.0); Lymphocytes # (A) 0.6 k/uL (1.0-4.8); Lymphocytes % (A) 5 %; MCH 29.9 pg (25.0-35.0); MCHC 31.7 g/dL (31.0-37.0); MCV 94.5 fL (80.0-100.0); Mean Platelet Volume 8.6; Monocytes # (A) 0.7 k/uL (0-1.0); Monocytes % (A) 5 %; Neutrophils # (A) 10.9 k/uL (1.3-7.7); Neutrophils % (A) 89 %; Platelet Count 197 k/uL (150-450); RBC 3.92 m/uL (3.80-5.40); RDW 15.3 % (11.5-15.5); WBC 12.3 k/uL (3.8-10.6)
[2024-06-01 07:07] LABS: African American GFR (CKD) 30 (>60 ml/min/1.73 sqM); Anion Gap 4 mmol/L; Blood Urea Nitrogen 95 mg/dL (7-17); Calcium 9.2 mg/dL (8.4-10.2); Carbon Dioxide 37 mmol/L (22-30); Chloride 98 mmol/L (98-107); Glucose 88 mg/dL (74-99); Non-African American GFR(CKD) 26 (>60 ml/min/1.73 sqM); Potassium 4.8 mmol/L (3.5-5.1); Sodium 139 mmol/L (137-145)
[2024-06-01 11:46] VITALS: RESP 16
--- NOTE | 2024-06-01 14:36 | P.PN ---
Subjective Progress Note Date: 06/01/24 This is a 79-year-old female patient with a known history of breast cancer status post radiation with lung damage greater than 25 years ago, chronic obstructive pulmonary disease, chronic hypoxemic respiratory failure on home oxygen at 2 to 3 L, obstructive sleep apnea on home BiPAP, atrial fibrillation anticoagulated with Eliquis, gout, depression, former smoker. He presented here to the emergency room earlier this morning with increasing shortness of breath cough and congestion. Several family members in the home have been sick with upper respiratory infections. X-ray shows cardiomegaly with mild central vascular congestion and fluid volume overload. There is a focal right basilar infiltrate/atelectasis. White count 10.0. Hemoglobin 12.1. Platelets 201. INR 1.1. D-dimer 0.44. Sodium 140. Potassium 4.0. Bicarb 36. BUN 53. Creatinine 2.15. Glucose 122. Troponin 0.036, 0.030, 0.024. proBNP 10,600. Procalcitonin negative at 0.6. Viral screen negative. She is seen in [facility] in the emergency department. She is currently sitting up on the stretcher. Awake and alert in no acute distress. She had initially been on BiPAP 16/5 and 40% FiO2. She is currently on oxygen at 5 L/min per nasal cannula. Feeling a bit better since she came in. No fever or chills. No he moptysis. He has been initiated on DuoNeb inhalations, Symbicort, Singulair, Solu-Medrol. Anticoagulated with Eliquis. Initiated on Lasix 40 mg IV every 12 hours. Progress note dated May 25, 2024. 79-year-old female seen yesterday in consultation. The patient was admitted with shortness of breath, was thought to have CHF. Currently, she is on 3 L of oxygen. She did use BiPAP, with settings of 16/5, and 40%. She is sitting up in a chair next to her hospital bed. She states that her breathing is improved. Current labs include a white count 8.6, hemoglobin 9.2, macro 36.2, and a pl atelet count of 214,000. Sodium 142, potassium 4.7, chlorides 97, CO2 38, BUN 64, creatinine 2.11. Glucose is 136. Progress note dated May 26, 2024. 79-year-old female seen in room 356. The patient continues on nasal O2 at 3 L. No IV fluids. The patient did use BiPAP last night, with settings of 16/5, and 40%. When asked, the patient states that she is feeling much better. She states that her breathing is much improved, she denies any shortness of breath, cough, wheezing, chest tightness, or phlegm production. She also denies any chest pain or pressure. Labs are reviewed. White count 9.7, hemoglobin 10.8, macro 34.7, platelet count normal. PTT is 64.8. 05/27/2024, the patient is being seen for a follow-up. The patient is resting comfortably in bed. The patient is known to have chronic lung disease, COPD, chronic hypoxic mindy failure maintained on oxygen 2 L/min nasal cannula, obstructive sleep apnea, chronic A-fib maintained on anticoagulation with Eliquis in addition to previous history of breast cancer, depression, gout and previous history of smoking, and chronic stage III kidney disease. Patient is currently being treated for an acute hypoxic respiratory failure on top of her chronic respiratory failure. She continues to show signs of bronchospasm wheezi ng. She is on DuoNeb nebulized treatments [id number]. She remains on IV Solu-Medrol 40 mg every 8 hours. She remains on Demadex 20 g p.o. daily. The white cell count of 10.8 with hemoglobin of 1.6 and a platelet count of 217. BUN is 78 with a creatinine of 2.0. Sodium is at 138 with a potassium level of 4.9, chlorides 97. 05/28/2024, the patient is being seen for a follow-up. Continues to have cough and congestion and some shortness of breath. She is currently on 2 L of oxygen by nasal cannula. Overnight, the patient was kept on BiPAP at a pressure of 16/5 with an FiO2 40%. She is receiving IV Solu-Medrol 40 mg every 8 hours. She remains on anticoagulation with Eliquis 2.5 mg twice a day. She is also on Demadex 20 mg p.o. twice a day. The patient's fluid balance is -890 cc over the past 24 hours. On her blood work, creatinine is improving and currently is down to 1.7 with a BUN of 72, sodium is at 140 with a potassium level of 4.9. No other significant events overnight. She is currently on 3 L with a pulse ox of 96%. On 05/29/2024, the patient is being seen for a follow-up. Still bronchospastic and wheezy and she continues to have some congested chest. No fever. No chills. No sputum production. Remains on DuoNeb nebulized treatments and Symbicort as maintenance. She remains on IV Solu-Medrol 40 mg every 8 hours. Creatinine is at 1.7 with BUN of 76 and both are stable. Sodium levels at 139 with a potassium level of 4.7. Hemoglobin is 11.6. On 05/30/2024, the patient is feeling improved and less short of breath and less bronchospastic and wheezy. The patient has no new complaints. The patient improved after adjustment in her IV Solu-Medrol dose and the patient clinically is on high-dose Solu-Medrol 60 mg every 6 hours. She remains on bronchodilators [id number]. Her renal function continues to improve. Creatinine is down to 1.58 with a BUN of 74, sodium levels at 139, blood sugar is at 135. Procalcitonin level is at 0.04. No other new complaints otherwise for now. She remains on oxygen and she is currently at 3 L with a pulse ox of 93%. 05/31/2024, the patient is feeling better. Less short of breath. Continues to have some residual congestion. No significant sputum production. Less bronchospastic and wheezy compared to yesterday. BUN 70 Keys catheter 1.58 and a potassium level is at 4.6 and a chloride is at 100 with a sodium level of 139. She is on IV Solu-Medrol 60 mg every 6 hours and the patient will be switched to prednisone burst taper. She remains on Symbicort. She remains on DuoNeb the regiment [id number]. She remains on Demadex 20 mg p.o. twice a day. No other significant events overnight. Oxygen requirements are at 3 L with a pulse ox of 95%. On 06/01/2024, the patient continues to have limited cough and congestion. Less bronchospastic and wheezy. She was taken off the IV Solu-Medrol and started on prednisone burst taper. She is currently on 3 L with a pulse ox of 99%. Remai ns on DuoNeb updrafts. Remains on Symbicort. Remains on torsemide 20 mg p.o. twice a day. White cell count is 12.3, hemoglobin is 11.7, BUN is 95 creatinine 1.8 and sodium levels at 139. Objective - Vital Signs Vital signs: Vital Signs Temp 98.3 F 06/01/24 08:15 Pulse 69 06/01/24 11:35 Resp 16 06/01/24 11:35 BP 116/72 06/01/24 11:35 Pulse Ox 99 06/01/24 11:35 FiO2 40 06/01/24 04:21 Intake & Output 05/31/24 06/01/24 06/01/24 18:59 06:59 18:59 Intake Total 160 20 250 Output Total 700 1850 Balance -540 -1830 250 Weight 71.3 kg Intake: IV 20 20 10 Invasive Line 2 20 20 10 Oral 140 240 Output: Urine 700 1850 Other: Voiding Method Toilet Toilet Toilet # Voids 2 2 - Exam No acute distress, oriented 3. The patient is currently on 3 L nasal cannula. HEENT examination is grossly unremarkable. Mucous membranes are moist. No oral lesions. Neck supple. Full range of motion. No adenopathy thyromegaly or neck vein distention. Cardiovascular examination reveals regular rhythm rate. S1-S2 normal. No S3 or S4. No discernible murmur noted. Lungs reveal scattered bilateral rhonchi, and basilar crackles. No wheezes. Abdomen soft bowel sounds are heard. No masses or tenderness. Extremities are intact. No cyanosis or clubbing. Trace edema present. Skin is without rash or lesion. Neurologic examination is brief but nonfocal. - Labs CBC & Chem 7: 06/01/24 06:29 06/01/24 06:29 Labs: Abnormal Lab Results - Last 24 Hours (Table) 06/01/24 06/01/24 Range/Units 06:29 06:29 WBC 12.3 H (3.8-10.6) k/uL Neutrophils # 10.9 H (1.3-7.7) k/uL Lymphocytes # 0.6 L (1.0-4.8) k/uL Carbon Dioxide 37 H (22-30) mmol/L BUN 95 H (7-17) mg/dL Creatinine 1.83 H (0.52-1.04) mg/dL Assessment and Plan Plan: Acute exacerbation of chronic systolic congestive heart failure. Echocardiogram was done on 05/25/2024 and the patient was found to have impaired the physical function with an ejection fraction of 35 to 40%, moderate tricuspid regurgitation, moderate degree of pulm hypertension. Clinically stable and improving. Acute exacerbation of chronic obstructive pulmonary disease. The patient continues to be bronchospastic and wheezy. Utilizing the BiPAP overnight. Acute on chronic hypoxemic respiratory failure secondary to above. The patient is currently on oxygen at 3 L/min nasal cannula. Utilizing BiPAP overnight at a pressure of 16 over 5 cm of water. Chronic obstructive pulmonary disease, oxygen dependent. Chronic stage III kidney disease with a component of acute on top of chronic kidney failure, creatinine is improving Former smoker. Chronic atrial fibrillation. The patient is maintained on long-term anticoagulants. Permanent pacemaker implantation. History of gout. History of right sided breast cancer status post radiation with "lung damage" greater than 25 years ago. Plan: Clinically improved prednisone burst taper Keep O2 at 3 L minute nasal cannula BiPAP overnight at the same settings Continue Demadex 20 mg p.o. p.o. twice a day. Monitor renal function Continue anticoagulation with Eliquis Continue DuoNeb nebulized treatments [id number] Echo results were noted. Will continue to follow
[2024-06-01 15:56] VITALS: BP 113/59; PULSE 73; TEMP 97.8
== END 2024-06-01 16:18 | disposition home or self-care (01) | DRG 291 ==
LOC: EC 23:53 → 3SCARD 05-24 03:03
PROVIDERS: ADMIT Hospitalist; ATTEND Hospitalist
PROC: 5A09457 Assistance with Respiratory Ventilation, 24-96 Consecutive Hours, Continuous Positive Airway Pressure (ICD-10-PCS; principal; 2024-05-24)
DX: I13.0 Hypertensive heart and chronic kidney disease with heart failure and stage 1 through stage 4 chronic kidney disease, or unspecified chronic kidney disease (principal); I50.23 Acute on chronic systolic (congestive) heart failure; J96.21 Acute and chronic respiratory failure with hypoxia; N17.9 Acute kidney failure, unspecified; J44.1 Chronic obstructive pulmonary disease with (acute) exacerbation; I48.21 Permanent atrial fibrillation; J98.11 Atelectasis; I5A Non-ischemic myocardial injury (non-traumatic); I27.20 Pulmonary hypertension, unspecified; N18.30 Chronic kidney disease, stage 3 unspecified; I42.9 Cardiomyopathy, unspecified; F32.A Depression, unspecified; G47.33 Obstructive sleep apnea (adult) (pediatric); Z99.81 Dependence on supplemental oxygen; Z79.01 Long term (current) use of anticoagulants; I08.3 Combined rheumatic disorders of mitral, aortic and tricuspid valves; K21.9 Gastro-esophageal reflux disease without esophagitis; L98.9 Disorder of the skin and subcutaneous tissue, unspecified; M10.9 Gout, unspecified; M19.90 Unspecified osteoarthritis, unspecified site; E87.5 Hyperkalemia; Z79.84 Long term (current) use of oral hypoglycemic drugs; Z79.899 Other long term (current) drug therapy; Z85.3 Personal history of malignant neoplasm of breast; Z92.3 Personal history of irradiation; Z87.891 Personal history of nicotine dependence; Z95.0 Presence of cardiac pacemaker; Z88.6 Allergy status to analgesic agent
CPT/HCPCS: 36415; 51702; 71046; 80048; 80053; 83605; 83880; 84145; 84484; 85025; 85379; 85610; 85730; 87636; 93005; 93306; 94640; 94660; 94760; 96374; 96375; 96376; 99291

== ENCOUNTER → 2024-06-11 | Outpatient (CLI) | payer MEDICARE ==
[2024-06-11 11:44] LABS: ABG Base Excess 12.2 mmol/L; ABG HCO3 38 mmol/L (21-25); ABG Oxygen Saturation 96.9 % (94-97); ABG PCO2 57 mmHg (35-45); ABG PH 7.44 (7.35-7.45); ABG PO2 79 mmHg (83-108); ABG TCO2 40 mmol/L (19-24); Allen Test Performed? Yes
== END | disposition home or self-care (01) ==
LOC: LABWHC1 10:27
PROVIDERS: ATTEND Internal Medicine Critical Care Medicine
DX: J96.12 Chronic respiratory failure with hypercapnia (principal)
CPT/HCPCS: 36600; 82805

== ENCOUNTER → 2024-09-17 | Outpatient (CLI) | payer MEDICARE ==
[2024-09-17 19:32] LABS: Blood Urea Nitrogen 32.3 mg/dL (9.0-27.0); Calcium 9.6 mg/dL (8.7-10.3); Carbon Dioxide 29.8 mmol/L (21.6-31.8); Chloride 104 mmol/L (96-109); Glucose 138 mg/dL (70-110); Potassium 3.8 mmol/L (3.5-5.5); Sodium 146 mmol/L (135-145)
[2024-09-17 21:42] LABS: NT-Pro-B-Type Natriuretic Pept 7556 pg/mL (0-450)
== END | disposition home or self-care (01) ==
LOC: LABWHC1 12:16
PROVIDERS: ATTEND Internal Medicine Interventional Cardiology
DX: R60.0 Localized edema (principal)
CPT/HCPCS: 36415; 80048; 83880

== ENCOUNTER → 2024-10-15 | Outpatient (CLI) | payer MEDICARE ==
[2024-10-15 20:27] LABS: Blood Urea Nitrogen 76.2 mg/dL (9.0-27.0); Carbon Dioxide 35.9 mmol/L (21.6-31.8); Chloride 94 mmol/L (96-109); Potassium 3.7 mmol/L (3.5-5.5); Sodium 144 mmol/L (135-145)
[2024-10-15 23:12] LABS: NT-Pro-B-Type Natriuretic Pept 7102 pg/mL (0-450)
== END | disposition home or self-care (01) ==
LOC: LABWHC1 11:46
PROVIDERS: ATTEND Internal Medicine Interventional Cardiology
DX: I42.8 Other cardiomyopathies (principal)
CPT/HCPCS: 36415; 80051; 82565; 83880; 84520

== ENCOUNTER → 2024-11-07 | Outpatient (CLI) | payer MEDICARE ==
[2024-11-07 19:06] LABS: NT-Pro-B-Type Natriuretic Pept 6602 pg/mL (0-450)
[2024-11-07 22:12] LABS: Blood Urea Nitrogen 96.2 mg/dL (9.0-27.0); Carbon Dioxide 26.2 mmol/L (21.6-31.8); Chloride 84 mmol/L (96-109); Potassium 3.3 mmol/L (3.5-5.5); Sodium 135 mmol/L (135-145)
== END | disposition home or self-care (01) ==
LOC: LABWHC1 12:25
PROVIDERS: ATTEND Internal Medicine Interventional Cardiology
DX: I42.8 Other cardiomyopathies (principal)
CPT/HCPCS: 36415; 80051; 82565; 83880; 84520

== ENCOUNTER → 2025-01-30 | Outpatient (CLI) | payer MEDICARE ==
[2025-01-30 15:11] LABS: NT-Pro-B-Type Natriuretic Pept 5737 pg/mL (0-450)
[2025-01-30 16:29] LABS: ALT 16 U/L (8-44); AST 22 U/L (13-35); Albumin 3.8 g/dL (3.8-4.9); Albumin/Globulin Ratio 1.46 Ratio (1.60-3.17); Alkaline Phosphatase 99 U/L (41-126); Anion Gap 15.10 mmol/L (4.00-12.00); BUN/Creat Ratio 28.20 Ratio (12.00-20.00); Blood Urea Nitrogen 56.4 mg/dL (9.0-27.0); Calcium 9.4 mg/dL (8.7-10.3); Carbon Dioxide 30.9 mmol/L (21.6-31.8); Chloride 96 mmol/L (96-109); Globulin 2.6 g/dL (1.6-3.3); Glucose 142 mg/dL (70-110); Potassium 3.9 mmol/L (3.5-5.5); Sodium 142 mmol/L (135-145); Total Protein 6.4 g/dL (6.2-8.2)
== END | disposition home or self-care (01) ==
LOC: LABWHC1 10:29
PROVIDERS: ATTEND Internal Medicine Interventional Cardiology
DX: I42.8 Other cardiomyopathies (principal)
CPT/HCPCS: 36415; 80053; 83880